=== PATIENT | female | born 1930 | race Caucasian/White ===

== ENCOUNTER 2016-07-31 17:06 | Inpatient (IN) | payer MEDICARE, OTHER ==
[~2016-07-31] VITALS: Ht 154.9 cm; Wt 70.4 kg
[~2016-07-31 17:06] MED LIST: AMLO-218 PO; ATOR40TA68 PO; BENZ200C43 PO; CALC-67 PO; ERTA1VIA2 IV; HYDR-3498 PO; HYDR-3672 PO; METH500T PO; METO-448 PO; NAPR-683 PO; OXYB5TAB22 PO; PARO10TA76 PO; SITA25TA3 PO
[2016-07-31 17:38] LABS: ADD SCAN DIFF NO
[2016-07-31 17:39] LABS: BASOPHILS % 0.2 % (0.0-2.0); EOSINOPHILS # 0.1 10^3/ul (0.0-0.5); EOSINOPHILS % 1.2 % (0.0-7.0); HEMATOCRIT 30.2 % (37.0-47.0); HEMOGLOBIN 9.3 g/dl (12.0-16.0); LYMPHOCYTES # 0.9 10^3/ul (0.8-2.9); LYMPHOCYTES % 9.8 % (15.0-51.0); MEAN CORPUSCULAR HEMOGLOBIN 29.6 pg (29.0-33.0); MEAN CORPUSCULAR HGB CONC 30.8 g/dl (32.0-37.0); MEAN CORPUSCULAR VOLUME 96.2 fl (82.0-101.0); MEAN PLATELET VOLUME 9.8 fl (7.4-10.4); MONOCYTE # 0.8 10^3/ul (0.3-0.9); MONOCYTES % 8.5 % (0.0-11.0); NEUTROPHIL # 7.6 10^3/ul (1.6-7.5); NEUTROPHILS % 79.6 % (39.0-77.0); PLATELET COUNT 226 10^3/UL (140-415); RED BLOOD COUNT 3.14 10^6/ul (4.20-5.40); RED CELL DISTRIBUTION WIDTH 14.5 % (11.5-14.5); WHITE BLOOD COUNT 9.6 10^3/ul (4.8-10.8)
[2016-07-31 17:50] LABS: POTASSIUM 4.2 mmol/L (3.5-5.1)
[2016-07-31 17:51] LABS: PROTIME 13.2 Sec (12.2-14.2)
[2016-07-31 17:53] LABS: CREATININE 7.3 mg/dl (0.44-1.00)
[2016-07-31 17:54] LABS: CALCIUM 8.2 mg/dl (8.4-10.2)
[2016-07-31 18:02] LABS: CK-MB 2.5 ng/ml (0.0-2.4)
[2016-07-31 18:05] LABS: TROPONIN-I 0.027 ng/ml (0.00-0.12)
[2016-07-31] MEDS ORDERED: AMLO5TAB4 PO (18:12)
[2016-07-31] MEDS ORDERED: FURO40TA4 PO (18:13)
[2016-07-31] MEDS ORDERED: ERGO500037 PO (18:16)
[2016-07-31] MEDS ORDERED: CALC0.255 PO (18:17)
[2016-07-31 18:52] LABS: TROPONIN-I 0.029 ng/ml (0.00-0.12)
--- NOTE | 2016-07-31 19:11 | RADRPT ---
PROCEDURE: XR Chest. CLINICAL INDICATION: Shortness of breath. TECHNIQUE: Portable AP upright view of the chest was obtained. COMPARISON: 09/20/2015 FINDINGS: The cardiomediastinal silhouette is mildly enlarged. Mild diffuse pulmonary vascular congestion is present with left greater than right lower lobe subsegmental atelectasis. Small bilateral pleural e ffusions are present greater on the left. Demineralization and thoracic spondylosis is again seen a s are degenerative changes of the left greater than right shoulder. Calcification of the aorta is pr esent. RPTAT:HJJR IMPRESSION: Mild cardiac silhouette enlargement with pulmonary vascular congestion and small pleural effusions a re concerning for congestive heart failure pattern with left greater than right lower lobe subsegmen cory atelectasis. Physician Nawaf Date Time Electronically viewed and signed by Physician Nawaf on 07/31/2016 19:11 /
[2016-07-31] MEDS ORDERED: ACETAMINOPHEN 325 MG TAB PO PRN (20:00)
[2016-07-31] MEDS ORDERED: ONDANSETRON 4 MG INJ IV PRN (20:00)
[2016-07-31 21:17] VITALS: TEMP 98
--- NOTE | 2016-07-31 21:24 | ERA ---
ER Documentation Chief Complaint Date/Time DATE: 07/31/16 TIME: 21:20 Chief Complaint sob x 1 week, speaking 1/2 sentences HPI This 85-year-old female presents to the emergency room for evaluation of shortness of breath for 1 week. According to family members this patient is scheduled to start dialysis within 1 or 2 weeks and was complaining of shortness of breath today. This patient was brought to the emergency room for further evaluation. The patient's shortness of breath is worse when laying flat. She denies any chest pain or palpitations associated with this. ROS All systems reviewed and are negative except as per history of present illness. Medications Home Meds Reported Medications Calcitriol* (Rocaltrol*) 0.25 Mcg Capsule, 0.25 MCG PO THREE TIMES A WEEK, CAP 07/31/16 Ergocalciferol (Vitamin D2) (VITAMIN D2) 50,000 Unit Capsule, 72950 UNIT PO EVERY 7 DAYS, CAP 07/31/16 Furosemide* (Furosemide*) 40 Mg Tablet, 40 MG PO DAILY, TAB 07/31/16 Amlodipine Besylate* (Norvasc*) 5 Mg Tablet, 5 MG PO DAILY, TAB 07/31/16 Metoprolol Tartrate* (Lopressor*) 25 Mg Tab, 25 MG PO BID, TAB 08/31/14 Hydralazine Hcl* (Hydralazine Hcl*) 50 Mg Tablet, 50 MG PO Q8, TAB 06/23/14 Sitagliptin* (Januvia*) 25 Mg Tablet, 25 MG PO DAILY, TAB 06/23/14 Paroxetine Hcl* (Paroxetine*) 10 Mg Tablet, 10 MG PO DAILY, TAB 06/23/14 Calcium Carbonate/Vitamin D3* (Os-Abhijeet 500+D*) 1 Tab Tablet, 1 TAB PO BID, TAB 06/23/14 Atorvastatin* (Atorvastatin*) 40 Mg Tablet, 40 MG PO HS, TAB 12/22/13 Discontinued Reported Medications Benzonatate* (Benzonatate*) 200 Mg Capsule, 200 MG PO TID Y for COUGH, CAP 06/23/14 Discontinued Scripts Methocarbamol* (Robaxin*) 500 Mg Tab, 500 MG PO Q8, #14 TAB Prov:BUNNY EASON DO 09/20/15 Naproxen* (Naproxen*) 250 Mg Tablet, 250 MG PO BID Y for PAIN, #10 TAB Prov:BUNNY EASON DO 09/20/15 Hydrocodone Bit-Acetaminophen* ([place]*) 5-325 Mg Tab, 1 TAB PO Q6 Y for PAIN, # 20 TAB Prov:BUNNY EASON DO 09/20/15 Ertapenem Sodium (Invanz) 1 G/Vial Vial.port, 1 G IV DAILY, #6 Prov:CARSON MADISON MD 09/06/14 Amlodipine Besylate* (Norvasc*) 10 Mg Tab, 10 MG PO DAILY, #30 BOTTLE Prov:CARSON MADISON MD 09/05/14 Oxybutynin Chloride* (Ditropan* XL) 5 Mg Tabsr, 5 MG PO DAILY, #30 TAB.SA Prov:CARSON MADISON MD 09/05/14 Allergies Allergies: Coded Allergies: No Known Allergies (Verified Allergy, Unknown, 07/31/16) PMhx/Soc History of Surgery: Yes (PANCREAS STENT PLACEMENT, fistula placement) Anesthesia Reaction: No Hx 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 Disorder: No Hx Respiratory Disorders: Yes (CHF) Hx Cardiac Disorders: Yes (htn, hyperlipids, cad) Hx Psychiatric Problems: Yes (hx of depression) Hx Miscellaneous Medical Probl: Yes (DM, HTN, COPD.KIDNEY INFECTION) Hx Alcohol Use: No Hx Substance Use: No Hx Tobacco Use: No Smoking Status: Never smoker Physical Exam Vitals Vital Signs Date Time Temp Pulse Resp B/P Pulse Ox O2 Delivery O2 Flow Rate FiO2 07/31/16 21:17 98.0 115 155/74 96 07/31/16 18:00 Nasal Cannula 3 07/31/16 17:09 98.1 81 20 158/70 87 Physical Exam INITIAL VITAL SIGNS: Reviewed by me GENERAL: The patient is well developed and appropriate for usual state of health in no apparent distress HEENT: Pupils equal, round, and reactive to light. EOMI. There is no scleral icterus. NECK: C-spine is soft and supple, there is no meningismus. There is no cervical lymphadenopathy. LUNGS: Coarse breath sounds bilaterally rales auscultated in the bilateral lower lobe HEART: Regular rate and rhythm, no murmurs, clicks, rubs or gallops. ABDOMEN: Soft, non-tender, non-distended. There are bowel sounds in all four quadrants. No rebound or guarding. EXTREMITIES: 3+ pitting edema in the bilateral lower extreme NEUROLOGICAL: The patient moves all four extremities with 5/5 strength. Cranial nerves II - XII are intact. Normal gait. Alert and oriented SKIN: There is no apparent rash or petechiae. HEME/LYMPHATIC: There is no evidence of excessive bruising or lymphedema. PSYCHIATRIC: The patient does not appear anxious or depressed. Result Diagram: 07/31/16 1725 07/31/16 1725 Results 24 hrs Laboratory Tests Test 07/31/16 17:25 White Blood Count 9.610^3/ul Red Blood Count 3.1410^6/ul Hemoglobin 9.3g/dl Hematocrit 30.2% Mean Corpuscular Volume 96.2fl Mean Corpuscular Hemoglobin 29.6pg Mean Corpuscular Hemoglobin Concent 30.8g/dl Red Cell Distribution Width 14.5% Platelet Count 81485^3/UL Mean Platelet Volume 9.8fl Neutrophils % 79.6% Lymphocytes % 9.8% Monocytes % 8.5% Eosinophils % 1.2% Basophils % 0.2% Nucleated Red Blood Cells % 0.0/100WBC Neutrophils # 7.610^3/ul Lymphocytes # 0.910^3/ul Monocytes # 0.810^3/ul Eosinophils # 0.110^3/ul Basophils # 0.010^3/ul Nucleated Red Blood Cells # 0.010^3/ul Prothrombin Time 13.2Sec Prothrombin Time Ratio 1.0 INR International Normalized Ratio 1.00 Activated Partial Thromboplast Time 29.0Sec Sodium Level 142mmol/L Potassium Level 4.2mmol/L Chloride Level 104mmol/L Carbon Dioxide Level 24mmol/L Anion Gap 18 Blood Urea Nitrogen 73mg/dl Creatinine 7.30mg/dl Glucose Level 168mg/dl Calcium Level 8.2mg/dl Creatine Kinase 105IU/L Creatine Kinase Index 2.4 Creatinine Kinase MB (Mass) 2.50ng/ml Troponin I 0.029ng/ml B-Type Natriuretic Peptide 7870PG/ML Current Medications Medications (Trade) Dose Ordered Sig/Shira Route PRN Reason Start Time Stop Time Status Last Admin Dose Admin Ondansetron HCl (Zofran Inj) 4 mg ER BRIDGE PRN IV NAUSEA AND/OR VOMITING 07/31/16 20:00 08/01/16 19:59 Acetaminophen (Tylenol Tab) 650 mg ER BRIDGE PRN PO MILD PAIN/FEVER 07/31/16 20:00 08/01/16 19:59 Procedures/MDM EKG: Rate/Rhythm: [Normal Sinus Rhythm] QRS, ST, T-waves: [No changes consistent w/ acute ischemia] Impression: [No evidence of ischemia or arrhythmia] Chest X-ray 1V Interpreted by me: Soft Tissue: Pulmonary vascular congestion, pleural effusion Bones: No acute abnormalities Mediastinum/Cardiac Silhouette/Lungs: [No acute abnormalities] There is 85-year-old female presents to the emergency room for evaluation of shortness of breath. When I evaluated her she was visibly fluid overloaded as she had 3+ pitting edema in the bilateral lower extremities. She did have coarse breath sounds bilaterally. Her oxygen on room air was 87%. The patient had an x-ray which did confirm my suspicion of pulmonary vascular congestion and cardiomegaly. This patient is supposed to be starting dialysis within a week or 2 according to the patient's family members. The patient does see animal behaviourist, Dr. matta at [facility]. I have paged Dr. Matta, and his colleague Dr. Mei return my phone call and stated that the patient can be seen by Dr. Leon. I have contacted Dr. Leon who stated that he will consult on this patient. This patient will be admitted under the care of Dr. Flores for acute hypoxic respiratory failure, and pulmonary edema. Critical Care: Excluding all billable procedures Time: 34 minutes Treatments/Evaluations: Emergent and rapid respiratory assessment and management with continuous monitoring. Advanced airway equipment at the ready, while the patient's respiratory symptoms were stabilized. Departure Diagnosis: Primary Impression: Acute respiratory failure with hypoxia Additional Impressions: Pulmonary vascular congestion Chronic renal insufficiency Normocytic anemia Condition: Stable KERITATIBAO EUBANKS Jul 31, 2016 21:24
[2016-07-31 21:40] VITALS: PULSE 85
[2016-07-31 21:52] VITALS: BP 148/66; RESP 19; Ht 154.9 cm; Wt 70.4 kg
[2016-08-01] VITALS (17 sets, daily range): BP systolic 112–160; BP diastolic 56–74; PULSE 66–89; RESP 18–20
[2016-08-01] MEDS: GUAIFENESIN/DM 5ML CUP PO PRN (00:35)
[2016-08-01] MEDS: ACCU-CHEK XX SCH (02:00)
[2016-08-01] MEDS: FUROSEMIDE 40 MG INJ IV SCH ×2 (05:54→18:36)
[2016-08-01 06:11] LABS: ADD SCAN DIFF NO
[2016-08-01 06:13] LABS: BASOPHILS % 0.2 % (0.0-2.0); EOSINOPHILS # 0.2 10^3/ul (0.0-0.5); EOSINOPHILS % 2.9 % (0.0-7.0); HEMATOCRIT 25.8 % (37.0-47.0); HEMOGLOBIN 7.8 g/dl (12.0-16.0); LYMPHOCYTES # 0.8 10^3/ul (0.8-2.9); LYMPHOCYTES % 13.4 % (15.0-51.0); MEAN CORPUSCULAR HEMOGLOBIN 29.4 pg (29.0-33.0); MEAN CORPUSCULAR HGB CONC 30.2 g/dl (32.0-37.0); MEAN CORPUSCULAR VOLUME 97.4 fl (82.0-101.0); MEAN PLATELET VOLUME 10.2 fl (7.4-10.4); MONOCYTE # 0.6 10^3/ul (0.3-0.9); MONOCYTES % 10.8 % (0.0-11.0); NEUTROPHIL # 4.2 10^3/ul (1.6-7.5); NEUTROPHILS % 72.4 % (39.0-77.0); PLATELET COUNT 180 10^3/UL (140-415); RED BLOOD COUNT 2.65 10^6/ul (4.20-5.40); RED CELL DISTRIBUTION WIDTH 14.6 % (11.5-14.5); WHITE BLOOD COUNT 5.8 10^3/ul (4.8-10.8)
[2016-08-01 06:31] LABS: ALBUMIN 3.1 g/dl (3.3-4.9); POTASSIUM 4.5 mmol/L (3.5-5.1)
[2016-08-01 06:33] LABS: CREATININE 7.05 mg/dl (0.44-1.00)
[2016-08-01 06:34] LABS: ALBUMIN/GLOBULIN RATIO 1.14; BILIRUBIN,INDIRECT 0.1 mg/dl (0-1.1); BILIRUBIN,TOTAL 0.1 mg/dl (0.2-1.3); CALCIUM 7.6 mg/dl (8.4-10.2); TOTAL PROTEIN 5.8 g/dl (6.1-8.1)
[2016-08-01 06:52] LABS: CK-MB 1.84 ng/ml (0.0-2.4)
[2016-08-01 06:55] LABS: TROPONIN-I 0.041 ng/ml (0.00-0.12)
[2016-08-01] MEDS: INSULIN ASPART [NOVOLOG] 3 ML PEN SC SCH ×4 (07:55→21:21)
[2016-08-01] MEDS: CALCITRIOL 0.25 MCG CAP PO SCH (09:27)
[2016-08-01] MEDS: PAROXETINE 10 MG TAB PO SCH (09:28)
[2016-08-01] MEDS: METOPROLOL 25 MG TAB PO SCH ×2 (09:28→21:11)
[2016-08-01] MEDS: CALCIUM/VITAMIN D (500/200) TAB PO SCH ×2 (09:28→21:11)
[2016-08-01] MEDS: AMLODIPINE 5 MG TAB PO SCH (09:29)
[2016-08-01] MEDS: HEPARIN 5,000 UNIT/0.5 ML VIAL SC SCH ×2 (09:59→21:00)
--- NOTE | 2016-08-01 11:40 | CONS ---
Date/Time of Note Date/Time of Note DATE: 08/01/16 TIME: 11:34 Assessment/Plan Assessment/Plan Additional Assessment/Plan Chest x-ray was reviewed from yesterday which is showing very minimal vascular congestion. Next Assessment recommendations; 1. Patient admitted for COPD exacerbation and acute bronchitis. 2. History of hypertension or diabetes. 3. Acute renal failure. Add Solu-Medrol 40 mg IV every 6 hours DuoNeb every 6 hours add Zithromax 250 mg orally daily. Patient likely would need to be dialyzed. Meanwhile continue current medications. Consultation Date/Type/Reason Admit Date/Time Jul 31, 2016 at 19:59 Date of Consultation: Aug 01, 2016 Type of Consultation: Pulmonary Reason for Consultation Pulmonary consultation is requested for evaluation of shortness of breath. Next History presenting; patient is a very pleasant 85-year-old lady who came into the emergency room yesterday with a few days history of increasing shortness of breath, cough and wheezing. According to her she was fine until the symptoms started 2 days ago but denies any high fever chills body aches myalgias to suggest any viral illness. The patient does have history of end- stage renal disease and according to her hemodialysis is being contemplated. The patient has not had any sessions yet so far. He denies any sputum production. But does complain of coughing. Denies any sinus symptoms. Any fever chills. Past medical history; 1. She was history of end-stage renal disease. 2. Hypertension. 3. Diabetes. 4. History of pancreatic stent. 5. Hyperlipidemia. 6. Most of any coronary artery disease. Medications; were reviewed. Allergies; are to iodine contrast. Social history; patient is an ex-smoker. Family history; she is she has 2 children. Various family members of diabetes hypertension. 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 Review of systems; denies any headache, any visual changes. Any sinus symptoms. Any seizures. Denies any chest pain. Complains of cough and wheezing. Denies any chest pain. Any angina. Any abdominal pain, nausea vomiting. Any melena, hematochezia. Complains of lower extremity edema. Complains of dyspnea on exertion. Complains of orthopnea. Has gained some weight recently. Denies any new skin changes. General exam; elderly lady, awake and alert currently in no distress. Social History Smoking Status: Former smoker Exam/Review of Systems Vital Signs Vitals Vital Signs Date Time Temp Pulse Resp B/P Pulse Ox O2 Delivery O2 Flow Rate FiO2 08/01/16 08:17 98.1 71 18 132/58 94 08/01/16 04:25 3.0 07/31/16 22:15 Nasal Cannula Intake and Output 07/31/16 07/31/16 08/01/16 15:00 23:00 07:00 Intake Total 300 ml Balance 300 ml Exam HEENT examination; supple neck, no JVD. No lymphadenopathy. Midline trachea. Patient is edentulous and wears dentures. Has bilateral intraocular lens implants. No thyromegaly. Chest examination a micro bilateral wheezing. S1-S2 audible, no murmurs. Regular rhythm. Abdomen examination; soft, nontender. No organomegaly. Bowel sounds audible. Extremity exam is; 1+ pitting edema lower extremities bilaterally. Pulses 1+ bilaterally. No clubbing. [employer] examination; cranial nerves are grossly intact. No motor deficit. Results Result Diagram: 08/01/16 0530 08/01/16 0530 Results 24 hrs Laboratory Tests Test 07/31/16 17:25 08/01/16 03:12 08/01/16 05:30 08/01/16 08:14 White Blood Count 9.6 # 5.8 # Red Blood Count 3.14 #L 2.65 L Hemoglobin 9.3 #L 7.8 L Hematocrit 30.2 L 25.8 L Mean Corpuscular Volume 96.2 97.4 Mean Corpuscular Hemoglobin 29.6 29.4 Mean Corpuscular Hemoglobin Concent 30.8 L 30.2 L Red Cell Distribution Width 14.5 14.6 H Platelet Count 226 180 # Mean Platelet Volume 9.8 10.2 Neutrophils % 79.6 H 72.4 Lymphocytes % 9.8 L 13.4 L Monocytes % 8.5 10.8 Eosinophils % 1.2 2.9 Basophils % 0.2 0.2 Nucleated Red Blood Cells % 0.0 0.0 Neutrophils # 7.6 H 4.2 Lymphocytes # 0.9 0.8 Monocytes # 0.8 0.6 Eosinophils # 0.1 0.2 Basophils # 0.0 0.0 Nucleated Red Blood Cells # 0.0 0.0 Prothrombin Time 13.2 Prothrombin Time Ratio 1.0 INR International Normalized Ratio 1.00 Activated Partial Thromboplast Time 29.0 Sodium Level 142 141 Potassium Level 4.2 4.5 Chloride Level 104 107 Carbon Dioxide Level 24 25 Anion Gap 18 H 14 Blood Urea Nitrogen 73 H 77 H Creatinine 7.30 H 7.05 H Glucose Level 168 104 # Calcium Level 8.2 L 7.6 L Creatine Kinase 105 70 Creatine Kinase Index 2.4 2.6 Creatinine Kinase MB (Mass) 2.50 H 1.84 Troponin I 0.029 0.041 B-Type Natriuretic Peptide 7870 H Bedside Glucose 115 103 Total Bilirubin 0.1 L Direct Bilirubin 0.00 Indirect Bilirubin 0.1 Aspartate Amino Transf (AST/SGOT) 20 Alanine Aminotransferase (ALT/SGPT) 23 Alkaline Phosphatase 96 Total Protein 5.8 L Albumin 3.1 L Globulin 2.70 Albumin/Globulin Ratio 1.14 Medications Medications Current Medications Amlodipine Besylate (Norvasc) 5 mg DAILY PO Last administered on 08/01/16 09: 29; Admin Dose 5 MG; Start 08/01/16 at 09:00 Atorvastatin Calcium (Lipitor) 40 mg HS PO ; Start 08/01/16 at 21:00 Calcitriol (Rocaltrol) 0.25 mcg DAILY PO Last administered on 08/01/16 09:27; Admin Dose 0.25 MCG; Start 08/01/16 at 09:00 Calcium/Vitamin D (Oyster Shell/ Vit-D (500/200)) 1 tab BID PO Last administered on 08/01/16 09:28; Admin Dose 1 TAB; Start 08/01/16 at 09:00 Hydralazine HCl (Apresoline) 50 mg Q8 PO Last administered on 08/01/16 05:54; Admin Dose 50 MG; Start 08/01/16 at 06:00 Metoprolol Tartrate (Lopressor) 25 mg BID PO Last administered on 08/01/16 09: 28; Admin Dose 25 MG; Start 08/01/16 at 09:00 Paroxetine HCl (Paxil) 10 mg DAILY PO Last administered on 08/01/16 09:28; Admin Dose 10 MG; Start 08/01/16 at 09:00 Acetaminophen (Tylenol Tab) 650 mg Q4H PRN PO PAIN AND OR ELEVATED TEMP; Start 08/01/16 at 00:30 Hydralazine HCl (Apresoline) 20 mg Q6H PRN IV ELEVATED BLOOD PRESSURE; Start at 00:30 Guaifenesin/ Dextromethorphan (Robitussin Dm Liquid Cup) 10 ml Q4H PRN PO COUGH Last administered on 08/01/16 00:35; Admin Dose 10 ML; Start 08/01/16 at 00:30 Heparin Sodium (Porcine) (Heparin (5000 Units/0.5 ml)) 5,000 unit BID SC Last administered on 08/01/16 09:59; Admin Dose 5,000 UNIT; Start 08/01/16 at 09:00 Diagnostic Test (Pha) (Accu-Chek) 1 ea 02 XX Last administered on 08/01/16 02: 00; Admin Dose 1 EA; Start 08/01/16 at 02:00 Epoetin Braden (Epogen (Esrd)) 10,000 units ONCE ONCE SC ; Start 08/01/16 at 12: 00; Stop 08/01/16 at 12:01 KOFI HUERTA Aug 01, 2016 11:40
[2016-08-01] MEDS ORDERED: EPOETIN 10000 UNITS/1 ML INJ (ESRD) SC ONE (12:00)
--- NOTE | 2016-08-01 13:30 | HP ---
Date/Time of Note Date/Time of Note DATE: 08/01/16 TIME: 10:48 Assessment/Plan VTE Prophylaxis VTE Prophylaxis Intervention: heparin, other Lines/Catheters IV Catheter Type (from [facility]): Saline Lock Urinary Cath still in place: No Assessment/Plan Assessment/Plan - Acute respiratory failure with hypoxia - pulmonary consult- Dr Smith notified - Pulmonary vascular congestion - cardiology consult- Dr Stuart notified - 2- D echo ordered - lipid panel ordered -Chronic renal insufficiency - Dr Leon notified - HD - Allergic to Iodinated Contrast Media -- DM- II - Glycemic control - 1800 Abhijeet diet - Former smoker - reinforce smoking cessation - COPD - Normocytic anemia - Hx PANCREAS STENT PLACEMENT, - sp fistula placement -Hx CHF -HTN - stable -Hyperlipidemia -Hx CAD - hx of depression Further recommendations based upon patient clinical course. Plan of care dw dr Flores /staff / patient . Total patient care time spent 35 minutes. 1400-Dw Dr Leon- her AVF is not ready yet as HD access, will need HD - JOSE ARMANDO Cath placement. Dr Manzo is notified. HPI/ROS Admit Date/Time Admit Date/Time Jul 31, 2016 at 19:59 Hx of Present Illness Chief Complaint sob x 1 week, speaking 1/2 sentences HPI This 85-year-old female presents to the emergency room for evaluation of shortness of breath for 1 week. According to family members this patient is scheduled to start dialysis within 1 or 2 weeks and was complaining of shortness of breath today. This patient was brought to the emergency room for further evaluation. The patient's shortness of breath is worse when laying flat. She denies any chest pain or palpitations associated with this. ROS All systems reviewed and are negative except as per history of present illness. Medications Home Meds Reported Medications Calcitriol* (Rocaltrol*) 0.25 Mcg Capsule, 0.25 MCG PO THREE TIMES A WEEK, CAP 07/31/16 Ergocalciferol (Vitamin D2) (VITAMIN D2) 50,000 Unit Capsule, 46232 UNIT PO EVERY 7 DAYS, CAP 07/31/16 Furosemide* (Furosemide*) 40 Mg Tablet, 40 MG PO DAILY, TAB 07/31/16 Amlodipine Besylate* (Norvasc*) 5 Mg Tablet, 5 MG PO DAILY, TAB 07/31/16 Metoprolol Tartrate* (Lopressor*) 25 Mg Tab, 25 MG PO BID, TAB 08/31/14 Hydralazine Hcl* (Hydralazine Hcl*) 50 Mg Tablet, 50 MG PO Q8, TAB 06/23/14 Sitagliptin* (Januvia*) 25 Mg Tablet, 25 MG PO DAILY, TAB 06/23/14 Paroxetine Hcl* (Paroxetine*) 10 Mg Tablet, 10 MG PO DAILY, TAB 06/23/14 Calcium Carbonate/Vitamin D3* (Os-Abhijeet 500+D*) 1 Tab Tablet, 1 TAB PO BID, TAB 06/23/14 Atorvastatin* (Atorvastatin*) 40 Mg Tablet, 40 MG PO HS, TAB 12/22/13 Discontinued Reported Medications Benzonatate* (Benzonatate*) 200 Mg Capsule, 200 MG PO TID Y for COUGH, CAP 06/23/14 Discontinued Scripts Methocarbamol* (Robaxin*) 500 Mg Tab, 500 MG PO Q8, #14 TAB Prov:JENAROBUNNY 09/20/15 Naproxen* (Naproxen*) 250 Mg Tablet, 250 MG PO BID Y for PAIN, #10 TAB Prov:JENAROBUNNY 09/20/15 Hydrocodone Bit-Acetaminophen* ([place]*) 5-325 Mg Tab, 1 TAB PO Q6 Y for PAIN, # 20 TAB Prov:BUNNY EASON 09/20/15 Ertapenem Sodium (Invanz) 1 G/Vial Vial.port, 1 G IV DAILY, #6 Prov:CARSON MADISON MD 09/06/14 Amlodipine Besylate* (Norvasc*) 10 Mg Tab, 10 MG PO DAILY, #30 BOTTLE Prov:CARSON MADISON MD 09/05/14 Oxybutynin Chloride* (Ditropan* XL) 5 Mg Tabsr, 5 MG PO DAILY, #30 TAB.SA Prov:CARSON MADISON MD 09/05/14 Allergies Allergies: Coded Allergies: No Known Allergies (Verified Allergy, Unknown, 07/31/16) ROS Eyes: no complaints ENT: no complaints Respiratory: shortness of breath Cardiovascular: no complaints Gastrointestinal: no complaints Genitourinary: no complaints Musculoskeletal: no complaints Skin: no complaints Neurologic: no complaints Endocrine: no complaints Lymphatic: no complaints Psychological: no complaints Immunologic: no complaints PMH/Family/Social Past Medical History PMhx/Soc History of Surgery: Yes (PANCREAS STENT PLACEMENT, fistula placement) Anesthesia Reaction: No Hx 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 Disorder: No Hx Respiratory Disorders: Yes (CHF) Hx Cardiac Disorders: Yes (htn, hyperlipids, cad) Hx Psychiatric Problems: Yes (hx of depression) Hx Miscellaneous Medical Probl: Yes (DM, HTN, COPD.KIDNEY INFECTION) Hx Alcohol Use: No Hx Substance Use: No Hx Tobacco Use: No Smoking Status: Never smoker Social History Smoking Status: Former smoker Exam/Review of Systems Vital Signs Vitals Vital Signs Date Time Temp Pulse Resp B/P Pulse Ox O2 Delivery O2 Flow Rate FiO2 08/01/16 08:17 98.1 71 18 132/58 94 08/01/16 04:25 3.0 07/31/16 22:15 Nasal Cannula Intake and Output 07/31/16 07/31/16 08/01/16 15:00 23:00 07:00 Intake Total 300 ml Balance 300 ml Exam Constitutional: alert, oriented, well developed Psych: no complaints Head: atraumatic Eyes: EOMI, nl sclera ENMT: nl external ears & nose Neck: non-tender Respiratory: diminished breath sounds, other ( Coarse breath sounds bilaterally rales auscultated in the bilateral lower lobe) Cardiovascular: nl pulses Gastrointestinal: non-tender, soft Musculoskeletal: nl extremities to inspection Extremities: edema 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: nl mental status, other Skin: nl turgor Lymph: nontender Labs Result Diagram: 08/01/1630 08/01/16 0530 Medications Medications Current Medications Amlodipine Besylate (Norvasc) 5 mg DAILY PO Last administered on 08/01/16 09: 29; Admin Dose 5 MG; Start 08/01/16 at 09:00 Atorvastatin Calcium (Lipitor) 40 mg HS PO ; Start 08/01/16 at 21:00 Calcitriol (Rocaltrol) 0.25 mcg DAILY PO Last administered on 08/01/16 09:27; Admin Dose 0.25 MCG; Start 08/01/16 at 09:00 Calcium/Vitamin D (Oyster Shell/ Vit-D (500/200)) 1 tab BID PO Last administered on 08/01/16 09:28; Admin Dose 1 TAB; Start 08/01/16 at 09:00 Hydralazine HCl (Apresoline) 50 mg Q8 PO Last administered on 08/01/16 05:54; Admin Dose 50 MG; Start 08/01/16 at 06:00 Metoprolol Tartrate (Lopressor) 25 mg BID PO Last administered on 08/01/16 09: 28; Admin Dose 25 MG; Start 08/01/16 at 09:00 Paroxetine HCl (Paxil) 10 mg DAILY PO Last administered on 08/01/16 09:28; Admin Dose 10 MG; Start 08/01/16 at 09:00 Acetaminophen (Tylenol Tab) 650 mg Q4H PRN PO PAIN AND OR ELEVATED TEMP; Start 08/01/16 at 00:30 Hydralazine HCl (Apresoline) 20 mg Q6H PRN IV ELEVATED BLOOD PRESSURE; Start at 00:30 Guaifenesin/ Dextromethorphan (Robitussin Dm Liquid Cup) 10 ml Q4H PRN PO COUGH Last administered on 08/01/16 00:35; Admin Dose 10 ML; Start 08/01/16 at 00:30 Heparin Sodium (Porcine) (Heparin (5000 Units/0.5 ml)) 5,000 unit BID SC Last administered on 08/01/16 09:59; Admin Dose 5,000 UNIT; Start 08/01/16 at 09:00 Diagnostic Test (Pha) (Accu-Chek) 1 ea 02 XX Last administered on 08/01/16 02: 00; Admin Dose 1 EA; Start 08/01/16 at 02:00 Epoetin Braden (Epogen (Esrd)) 10,000 units ONCE ONCE SC ; Start 08/01/16 at 12: 00; Stop 08/01/16 at 12:01 Procedures Procedures 1. EKG: Rate/Rhythm: [Normal Sinus Rhythm] QRS, ST, T-waves: [No changes consistent w/ acute ischemia] Impression: [No evidence of ischemia or arrhythmia] 2. Chest X-ray 1V Interpreted by me: Soft Tissue: Pulmonary vascular congestion, pleural effusion Bones: No acute abnormalities Mediastinum/Cardiac Silhouette/Lungs: [No acute abnormalities] LALA ORO Aug 01, 2016 10:58
[2016-08-01] MEDS: METHYLPREDNISOLONE 40 MG INJ IV SCH ×2 (14:16→18:36)
[2016-08-01] MEDS: AZITHROMYCIN 250 MG TAB PO SCH (14:18)
[2016-08-01] MEDS ORDERED: SOD CHLORIDE 0.9% 250 ML IV* ONE (14:43)
--- NOTE | 2016-08-01 15:09 | QN ---
Documentation Comment [id number] consult A/P ESRD HTN DM ANEMIA' FLUID OVERLOAD PLAN HD DAT OLSON MD Aug 01, 2016 15:09
--- NOTE | 2016-08-01 15:24 | RADRPT ---
Echocardiogram Report Patient Name: KANDY GARZA Gender: Female Date: 1930 Study Date: 01-Aug-2016 Phone Specialist: RENITA [facility] Location: 525 Ref. Physician: LALA ORO Quality: Adequate Procedures: Transthoracic echocardiogram with complete 2D, M-Mode, and doppler examination. Indications: Congestive Heart Failure. Shortness of breath. 2D/M Mode Doppler Measurement Value Normal Ranges Measurement Value Normal Ranges LVIDd 2D 4.8 3.5 - 5.6 cm AV Peak Ramirez 1.4 m/sec LVIDs 2D 3.1 2.1 - 4.1 cm AV Peak PG 8.0 mmHg FS 2D 34.5 % LVOT Peak Ramirez 1.2 m/sec LVPWd 2D 1.3 0.6 - 1.1 cm LVOT Peak PG 5.0 mmHg IVSd 2D 1.3 0.6 - 1.1 cm MV E Peak Ramirez 1.3 m/sec IVS/LVPW 2D 1.0 MV A Peak Ramirez 0.9 m/sec AoR Diam 2D 2.3 2.0 - 3.7 cm MV E/A 1.5 LA/Ao 2D 2 0 - 1 MV Decel Time 201 msec EDV 2D 109.0 cm3 MV E/A 1.5 ESV 2D 30.7 cm3 TR Peak Ramirez 2.7 m/sec LA Dimen 2D 4.3 2.3 - 4.0 cm TR Peak PG 28.0 mmHg Findings Left Ventricle: Normal left ventricular systolic function. Normal left ventricular cavity size. Mild concentric left ventricular hypertrophy. Ejection fraction is visually estimated at 65 %. Abnormal Diastolic Function. Right Ventricle: Normal right ventricular size. Normal right ventricular systolic function. Left Atrium: There is mild enlargement of left atrium. Right Atrium: The right atrium is normal in size. Mitral Valve: Mild mitral annular calcification. Trace mitral regurgitation. Aortic Valve: Probable trileaflet aortic valve, although not all leaflets are visualized. Trace aortic valve regurgitation. Tricuspid Valve: Estimated peak PA systolic pressure 43 mmHg. There is mild tricuspid regurgitation. Pulmonic Valve: There is trace pulmonic regurgitation. Pericardium: There is an anterior echo free space consistent with epicardial fat pad. Left pleural effusion seen. Aorta: Normal aortic root. IVC: Dilated inferior vena cava with poor inspiratory collapse consistent with elevated right atrial pressures. Conclusions Normal left ventricular systolic function. Normal left ventricular cavity size. Mild concentric left ventricular hypertrophy. Ejection fraction is visually estimated at 65 %. Abnormal Diastolic Function. Mild mitral annular calcification. Trace mitral regurgitation. Probable trileaflet aortic valve, although not all leaflets are visualized. Trace aortic valve regurgitation. Estimated peak PA systolic pressure 43 mmHg. There is mild tricuspid regurgitation. Electronically Signed By: Stephani Stuart 01-Aug-2016 15:23:48 -0700 Patient Name: KANDY GARZA Study Date: 01-Aug-2016 [id number]
--- NOTE | 2016-08-01 15:28 | CONS ---
Date/Time of Note Date/Time of Note DATE: 08/01/16 TIME: 15:24 Assessment/Plan Assessment/Plan Problems: (1) Contusion, hip Status: Acute (2) Facial contusion Status: Acute (3) UTI (lower urinary tract infection) Status: Acute (4) Knee pain Status: Acute (5) Compression fracture Status: Acute (6) Lumbar strain Status: Acute (7) Normocytic anemia Status: Acute (8) Chronic renal insufficiency Status: Acute (9) Pulmonary vascular congestion Status: Acute (10) Acute respiratory failure with hypoxia Status: Acute Additional Assessment/Plan ESRD New hd SOB/. pulm Edema due to CKD/ESRD Diastoic HF Vasculopathy Patient is getting HD right now Pulm edema improved SOB improved Plan for HD as per nephrology Dr Leno. I would consider BB Echo LVEF normal pt will ./fu out pt for further work up. will /.fu Thank you Dr Flores for consultation. Consultation Date/Type/Reason Admit Date/Time Jul 31, 2016 at 19:59 Date of Consultation: Aug 01, 2016 Type of Consultation: IC and Endovascular Card Reason for Consultation SOB, CP Hx of Present Illness Patient is 85 year old F with PMH of HTN, HLD, CKD now presentezd with SOB and ESRD was started on HD. She already has been planning for Stage IV CKD and had fistula done already. Pt does have some SOB. significant Leg edema. Likely realted to CKD and Diastolic HF. LVEF is nl. Eyes: no complaints ENT: no complaints Respiratory: shortness of breath Cardiovascular: no complaints Gastrointestinal: no complaints Genitourinary: no complaints Musculoskeletal: no complaints Skin: no complaints Neurologic: no complaints Lymphatic: no complaints Psychological: no complaints Immunologic: no complaints Social History Smoking Status: Former smoker Exam/Review of Systems Vital Signs Vitals Vital Signs Date Time Temp Pulse Resp B/P Pulse Ox O2 Delivery O2 Flow Rate FiO2 08/01/16 15:18 98.0 69 18 123/57 97 08/01/16 04:25 3.0 07/31/16 22:15 Nasal Cannula Intake and Output 07/31/16 07/31/16 08/01/16 15:00 23:00 07:00 Intake Total 300 ml Balance 300 ml Exam Constitutional: alert, oriented Psych: no complaints Head: normocephalic Eyes: nl conjunctiva ENMT: nl external ears & nose Neck: supple Respiratory: clear to auscultation Cardiovascular: regular rate and rhythm Gastrointestinal: soft Musculoskeletal: nl extremities to inspection Extremities: normal pulses Results Result Diagram: 08/01/16 0530 08/01/16 0530 Results 24 hrs Laboratory Tests Test 07/31/16 17:25 08/01/16 03:12 08/01/16 05:30 08/01/16 08:14 White Blood Count 9.6 # 5.8 # Red Blood Count 3.14 #L 2.65 L Hemoglobin 9.3 #L 7.8 L Hematocrit 30.2 L 25.8 L Mean Corpuscular Volume 96.2 97.4 Mean Corpuscular Hemoglobin 29.6 29.4 Mean Corpuscular Hemoglobin Concent 30.8 L 30.2 L Red Cell Distribution Width 14.5 14.6 H Platelet Count 226 180 # Mean Platelet Volume 9.8 10.2 Neutrophils % 79.6 H 72.4 Lymphocytes % 9.8 L 13.4 L Monocytes % 8.5 10.8 Eosinophils % 1.2 2.9 Basophils % 0.2 0.2 Nucleated Red Blood Cells % 0.0 0.0 Neutrophils # 7.6 H 4.2 Lymphocytes # 0.9 0.8 Monocytes # 0.8 0.6 Eosinophils # 0.1 0.2 Basophils # 0.0 0.0 Nucleated Red Blood Cells # 0.0 0.0 Prothrombin Time 13.2 Prothrombin Time Ratio 1.0 INR International Normalized Ratio 1.00 Activated Partial Thromboplast Time 29.0 Sodium Level 142 141 Potassium Level 4.2 4.5 Chloride Level 104 107 Carbon Dioxide Level 24 25 Anion Gap 18 H 14 Blood Urea Nitrogen 73 H 77 H Creatinine 7.30 H 7.05 H Glucose Level 168 104 # Calcium Level 8.2 L 7.6 L Creatine Kinase 105 70 Creatine Kinase Index 2.4 2.6 Creatinine Kinase MB (Mass) 2.50 H 1.84 Troponin I 0.029 0.041 B-Type Natriuretic Peptide 7870 H Bedside Glucose 115 103 Total Bilirubin 0.1 L Direct Bilirubin 0.00 Indirect Bilirubin 0.1 Aspartate Amino Transf (AST/SGOT) 20 Alanine Aminotransferase (ALT/SGPT) 23 Alkaline Phosphatase 96 Total Protein 5.8 L Albumin 3.1 L Globulin 2.70 Albumin/Globulin Ratio 1.14 Test 08/01/16 12:28 Bedside Glucose 103 Medications Medications Current Medications Amlodipine Besylate (Norvasc) 5 mg DAILY PO Last administered on 08/01/16 09: 29; Admin Dose 5 MG; Start 08/01/16 at 09:00 Atorvastatin Calcium (Lipitor) 40 mg HS PO ; Start 08/01/16 at 21:00 Calcitriol (Rocaltrol) 0.25 mcg DAILY PO Last administered on 08/01/16 09:27; Admin Dose 0.25 MCG; Start 08/01/16 at 09:00 Calcium/Vitamin D (Oyster Shell/ Vit-D (500/200)) 1 tab BID PO Last administered on 08/01/16 09:28; Admin Dose 1 TAB; Start 08/01/16 at 09:00 Hydralazine HCl (Apresoline) 50 mg Q8 PO Last administered on 08/01/16 05:54; Admin Dose 50 MG; Start 08/01/16 at 06:00 Metoprolol Tartrate (Lopressor) 25 mg BID PO Last administered on 08/01/16 09: 28; Admin Dose 25 MG; Start 08/01/16 at 09:00 Paroxetine HCl (Paxil) 10 mg DAILY PO Last administered on 08/01/16 09:28; Admin Dose 10 MG; Start 08/01/16 at 09:00 Acetaminophen (Tylenol Tab) 650 mg Q4H PRN PO PAIN AND OR ELEVATED TEMP; Start 08/01/16 at 00:30 Hydralazine HCl (Apresoline) 20 mg Q6H PRN IV ELEVATED BLOOD PRESSURE; Start at 00:30 Guaifenesin/ Dextromethorphan (Robitussin Dm Liquid Cup) 10 ml Q4H PRN PO COUGH Last administered on 08/01/16 00:35; Admin Dose 10 ML; Start 08/01/16 at 00:30 Heparin Sodium (Porcine) (Heparin (5000 Units/0.5 ml)) 5,000 unit BID SC Last administered on 08/01/16 09:59; Admin Dose 5,000 UNIT; Start 08/01/16 at 09:00 Diagnostic Test (Pha) (Accu-Chek) 1 ea 02 XX Last administered on 08/01/16 02: 00; Admin Dose 1 EA; Start 08/01/16 at 02:00 Azithromycin (Zithromax) 250 mg DAILY PO Last administered on 08/01/16 14:18; Admin Dose 250 MG; Start 08/01/16 at 12:00 Methylprednisolone Sodium Succinate (Solu-Medrol) 40 mg Q6 IV Last administered on 08/01/16 14:16; Admin Dose 40 MG; Start 08/01/16 at 12:00 Epoetin Braden (Epogen (Esrd)) 6,000 units MoWeFr@17 SC ; Start 08/02/16 at 17:00 Epoetin Braden (Epogen (Esrd)) 6,000 units ONCE ONCE SC ; Start 08/01/16 at 17:00 ; Stop 08/01/16 at 17:01 SIERRA GARCIA MD Aug 01, 2016 15:28
[2016-08-01] MEDS ORDERED: MANNITOL 25% 50 ML INJ IV* ONE (16:30)
[2016-08-01 16:33] LABS: HAAIG REFLEX REFLEX FILED
[2016-08-01] MEDS ORDERED: EPOETIN 3000 UNITS/1 ML INJ (ESRD) SC ONE (17:00)
[2016-08-01 17:35] LABS: HEPATITIS B CORE ANTIBODY NEGATIVE (NEGATIVE)
--- NOTE | 2016-08-01 17:54 | CONS ---
DATE OF ADMISSION: 07/31/2016 DATE OF CONSULTATION: TYPE OF CONSULTATION: Nephrology. Thank you, Dr. Jacinto Flores, for kindly asking me to see this patient. The of patient's primary research physiologist is Dr. Ruddy Matta, per patient. Patient had AV fistula in left upper extremity, waiting for fistula to mature and to start dialysis, presented with shortness of breath. Patient noted to have potassium 4.2, BUN 73, creatinine 7.30. The patient has 3+ edema of the leg. Chest x-ray done shows pulmonary edema. Cardiac silhouette enlargement with congestion and small pleural effusion. The patient is short of breath while lying flat, has orthopnea, PND and is going to be admitted and monitored for further management. PAST MEDICAL HISTORY: Positive for the patient has history of ESRD, the patient has hydronephrosis, history of , history of hypertension, UTI, history of pancreatitis. History of common bile duct obstruction, status post cholecystectomy, history of ERCP with sludge removal from the common bile duct and stent placement 09/04/2014. The patient has a history of COPD, anemia, AV fistula placement. Has history of diabetes mellitus. ALLERGY HISTORY: IV CONTRAST. SOCIAL HISTORY: Negative. FAMILY HISTORY: Negative. MEDICATION HISTORY: The patient is on: 1. Amlodipine. 2. Atorvastatin. 3. Rocaltrol. 4. Calcium carbonate. 5. Vitamin D2. 6. Lasix. 7. Hydralazine. 8. Metoprolol. 9. Paxil. 10. Januvia. REVIEW OF SYSTEMS HEENT: Unremarkable except short of breath. RESPIRATORY: Orthopnea and PND positive. CARDIOVASCULAR: No chest pain. ABDOMEN: Unremarkable. EXTREMITIES: Swelling. GENITOURINARY: Nocturia. No dysuria, no hematuria. CENTRAL NERVOUS SYSTEM: Unremarkable. PHYSICAL EXAMINATION: GENERAL: The patient is awake and alert. VITAL SIGNS: Pulse 73, blood pressure 145/68. HEAD: Atraumatic, normocephalic. Pupils are equal and reactive to light. No pallor or conjunctival icterus. NECK: Supple, no JVD. LUNGS: Shows basilar rales noted and rhonchi noted. CARDIOVASCULAR: S1, S2 is normal. Systolic murmur soft at the apex noted. ABDOMEN: Soft, obese, bowel sounds present, no palpable mass. EXTREMITIES: No cyanosis, clubbing. Total 3+ edema. CENTRAL NERVOUS SYSTEM: The patient is awake, alert, moving both upper and lower extremities. No deficit. IMPRESSION: 1. End-stage renal disease stage V. 2. Fluid overload. 3. Pulmonary edema. 4. Anemia of chronic kidney disease. 5. History of diabetes mellitus. 6. 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 7. AV fistula on the left upper extremity. PLAN: To obtain hepatitis panel. The patient already had a workup done for kidney disease as an outpatient for Dr. Matta, per patient. The patient will have phosphorus and calcium and CBC, CMP followed. The patient will benefit from renal replacement therapy and placement of dialysis catheter and Maurice catheter will be placed temporarily and the patient will be dialyzed. The patient agrees. The patient will also have outpatient arrangement made for patient to continue chronic hemodialysis in the outside dialysis center. Will let Dr. Ruddy Matta decide which dialysis center he wants this patient to go to for chronic dialysis. Will inform him or have corrections caseworker and nurse practitioner call dr matta office. Thank you, Dr. Jacinto Flores, for kindly asking me to see this patient in nephrology consultation. The patient will be followed along with you during her hospital stay. Dictated By: DAT OLSON MD BS/SYED Conf#: [id number] DID#: [id number] LUCIA
--- NOTE | 2016-08-01 19:18 | CONS ---
DATE OF ADMISSION: 07/31/2016 DATE OF CONSULTATION: 08/01/2016 VASCULAR SURGERY CONSULTATION Dear Doctors: Ms. You is an 85-year-old female known to our vascular surgery service secondary to a history of chronic kidney disease stage V, pending end-stage renal disease, who has been evaluated for us for some time now. The patient had a left upper extremity fistula creation early May secondary to h er impending renal failure. The patient had been managed by her outside physician, Dr. Ruddy Ross, who has been following her regarding her renal function. From a standpoint of vascular surgery, her left upper extremity fistula had mostly matured. There were some areas in her distal cephalic vein that had areas that still had some stenosis which will require further intervention in the near fut ure should there be a problem with her dialysis sessions. At the moment, we have cleared the patien t to go ahead and have her fistula used, although with smaller needles, 17 gauge, and not to be used with a 16-gauge needle. She is tolerating dialysis well at the bedside with numbers in the 250s. Further, she is being evaluated by our cardiology colleagues secondary to her fluid overload and her diastolic congestive heart failure. At the moment, the patient denies nausea, vomiting, fever or c hills. She denies left upper extremity claudication or rest pain-like symptoms. She denies lower e xtremity claudication or rest pain. She does have edema in the bilateral lower extremities, and she does have some shortness of breath and mild chest pain as a result to that. PAST MEDICAL HISTORY: COPD; congestive heart failure, diastolic; coronary artery disease; bilateral lower extremity atherosclerosis; hypertension; diabetes; chronic kidney disease stage V, impending end-stage renal disease; hyperlipidemia; coronary artery disease. PAST SURGICAL HISTORY: Left upper extremity AV fistula brachiocephalic creation, pancreatic stent. FAMILY HISTORY: Positive for coronary artery disease and hypertension and cholesterol. SOCIAL HISTORY: Denies current tobacco, alcohol or illicit drug use. Previous smoker. PHYSICAL EXAMINATION: GENERAL: Alert and oriented x3. No apparent distress. HEENT: Normocephalic, atraumatic. PERRLA, EOMI. Mucosa moist. NECK: Supple. No carotid bruit. PULMONARY: Bilateral crackles at the bases. Good airway entry. CARDIOVASCULAR: S1, S2 present. No murmurs identified. ABDOMEN: Soft, nontender, nondistended. Bowel sounds positive. Truncal obesity. EXTREMITIES: LEFT UPPER EXTREMITY: Palpable brachial pulse. Motor, sensory intact. Capillary refill 2 to 3 sec onds. Surgical scar well healed. Fistula with bruit and thrill present. She does have a large arm . LOWER EXTREMITIES: Palpable femoral pulses, nonpalpable pedal pulses. Motor, sensory intact. Capi llary refill 2 to 3 seconds. No ulcers. Edema 2+. ASSESSMENT AND PLAN: 1. Chronic kidney disease stage V, impending end-stage renal disease: It seems that the patient's fluid status has worsened and she requires dialysis in order to offload her volume overload. Her fi stula has matured mostly. There are areas that were still smaller in diameter in the distal cephali c area upon our recent vascular surveillance. As far as right now, will go ahead and have the fistu la attempted with a smaller-gauge needle, 17 gauge, and evaluate her dialysis session. Attention sh ould be paid to not applying too much pressure on the vein post her cannulation needles have been re moved. Will plan to follow her closely and hope that her fistula will be adequate for her dialysis sessions for now. If the patient requires further management and issues with her dialysis sessions, will plan for a PermCath in the coming days. 2. Bilateral lower extremity atherosclerosis: The patient has been evaluated by Vascular, will con tinue our vascular surveillance. No further intervention is needed at this time and will follow as an outpatient. 3. Optimize vascular status (blood pressure medications, diet, nutrition, exercise, sugar control, antiplatelets). Discussed findings, plan and management with the patient. She understands with a certified translat or. We have discussed the patient's findings with Dr. Leon, and Dr. Ruddy Ross, who is her outpatient n ephrologist, to follow the patient. Thank you for allowing us to partake in the care of your patient. Please call with any questions. Dictated By: ELIZA CAROLINA/SYED Conf#: [id number] DID#: [id number] CC: RUDDY ROSS MD;*EndCC*
[2016-08-01] MEDS: ATORVASTATIN 40 MG TAB PO SCH (21:11)
[2016-08-02] VITALS (18 sets, daily range): BP systolic 120–167; BP diastolic 57–83; PULSE 66–88; RESP 18–20
[2016-08-02] MEDS: ACCU-CHEK XX SCH (02:00)
[2016-08-02] MEDS: METHYLPREDNISOLONE 40 MG INJ IV SCH ×4 (02:25→17:35)
[2016-08-02] MEDS: FUROSEMIDE 40 MG INJ IV SCH ×2 (06:29→17:01)
[2016-08-02 07:27] LABS: ADD SCAN DIFF NO
[2016-08-02 07:33] LABS: ABNORMAL IP MESSAGE 1; HEMATOCRIT 33.5 % (37.0-47.0); HEMOGLOBIN 10.4 g/dl (12.0-16.0); LYMPHOCYTES # 0.5 10^3/ul (0.8-2.9); LYMPHOCYTES % 8.9 % (15.0-51.0); MEAN CORPUSCULAR HEMOGLOBIN 29.9 pg (29.0-33.0); MEAN CORPUSCULAR VOLUME 96.3 fl (82.0-101.0); MEAN PLATELET VOLUME 10.6 fl (7.4-10.4); MONOCYTES % 0.8 % (0.0-11.0); NEUTROPHIL # 4.7 10^3/ul (1.6-7.5); NEUTROPHILS % 89.4 % (39.0-77.0); PLATELET COUNT 180 10^3/UL (140-415); RED BLOOD COUNT 3.48 10^6/ul (4.20-5.40); RED CELL DISTRIBUTION WIDTH 14.6 % (11.5-14.5); WHITE BLOOD COUNT 5.3 10^3/ul (4.8-10.8)
[2016-08-02 08:00] LABS: ALBUMIN 3.5 g/dl (3.3-4.9)
[2016-08-02 08:01] LABS: POTASSIUM 4.4 mmol/L (3.5-5.1)
[2016-08-02 08:03] LABS: BILIRUBIN,INDIRECT 0.2 mg/dl (0-1.1); BILIRUBIN,TOTAL 0.2 mg/dl (0.2-1.3); CHOL/HDL RATIO 1.6 RATIO; CREATININE 5.65 mg/dl (0.44-1.00); MAGNESIUM 2.1 mg/dl (1.7-2.5); PHOSPHORUS 7.2 mg/dl (2.5-4.9)
[2016-08-02 08:04] LABS: CALCIUM 8.2 mg/dl (8.4-10.2)
[2016-08-02] MEDS: CALCITRIOL 0.25 MCG CAP PO SCH (08:22)
[2016-08-02] MEDS: CALCIUM/VITAMIN D (500/200) TAB PO SCH ×2 (08:22→20:47)
[2016-08-02] MEDS: AZITHROMYCIN 250 MG TAB PO SCH (08:22)
[2016-08-02] MEDS: PAROXETINE 10 MG TAB PO SCH (08:22)
[2016-08-02] MEDS: HEPARIN 5,000 UNIT/0.5 ML VIAL SC SCH ×2 (08:23→20:53)
[2016-08-02] MEDS: INSULIN ASPART [NOVOLOG] 3 ML PEN SC SCH ×4 (08:24→21:06)
[2016-08-02] MEDS: AMLODIPINE 5 MG TAB PO SCH (08:29)
[2016-08-02] MEDS: METOPROLOL 25 MG TAB PO SCH ×2 (08:30→20:47)
[2016-08-02] MEDS ORDERED: GLUCAGON 1 MG INJ IM PRN (12:30)
[2016-08-02] MEDS ORDERED: DEXTROSE 50% 50 ML SYRINGE IV PRN (12:30)
[2016-08-02] MEDS ORDERED: GLUCOSE GEL 15 GRAM TUBE BUCCAL PRN (12:30)
[2016-08-02] MEDS ORDERED: GLUCOSE GEL 15 GRAM TUBE PO PRN ×2 (12:30)
--- NOTE | 2016-08-02 16:59 | PN ---
Date/Time of Note Date/Time of Note DATE: 08/02/16 TIME: 16:48 Assessment/Plan VTE Prophylaxis VTE Prophylaxis Intervention: SCD's Lines/Catheters IV Catheter Type [facility]from [facility] Saline Lock Urinary Cath still in place: No Assessment/Plan Chief Complaint/Hosp Course Assessment and plan: - Acute bronchitis, continue Zithromax. - COPD exacerbation, continue breathing treatment. Dr. Natarajan is following in pulmonology consultation - End-stage renal disease stage V. Dr. Leon is following in nephrology consultation. - Pulmonary edema. Continue diuresis. - Anemia of chronic kidney disease. Continue Epogen. - Diabetes mellitus type 2, continue NovoLog per moderate algorithm sliding scale. - Hypertension, continue Norvasc. -Left upper extremity AV fistula Further recommendations based on clinical course. Plan of care discussed with Dr. Flores Problems: Subjective 24 Hr Interval Summary Free Text/Dictation Patient is awake alert, denies shortness of breath, complains of productive cough, denies fever nausea vomiting. Exam/Review of Systems Vital Signs Vitals Vital Signs Date Time Temp Pulse Resp B/P Pulse Ox O2 Delivery O2 Flow Rate FiO2 08/02/16 16:36 80 08/02/16 16:21 98.1 19 149/65 95 08/02/16 15:47 2.0 08/02/16 08:00 Nasal Cannula Intake and Output 08/01/16 08/01/16 08/02/16 15:00 23:00 07:00 Intake Total 1350 ml 800 ml Output Total 3100 ml Balance -1750 ml 800 ml Exam Constitutional: alert, oriented Psych: no complaints Head: atraumatic, normocephalic Eyes: nl conjunctiva ENMT: nl external ears & nose, nl lips & teeth Neck: non-tender, supple Respiratory: clear to auscultation, crackles/rales Cardiovascular: nl pulses, regular rate and rhythm Gastrointestinal: non-tender, soft Musculoskeletal: nl extremities to inspection Extremities: normal pulses 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: LAMP SHADE MAKER II-XII intact Additional Comments Left upper extremities with AV fistula with palpable thrill and audible bruit Results Result Diagram: 08/02/1625 08/02/16 0625 Results 24 hrs Laboratory Tests Test 08/01/16 17:54 08/01/16 21:02 08/02/16 02:41 08/02/16 06:25 Bedside Glucose 130 281 H 196 White Blood Count 5.3 Red Blood Count 3.48 #L Hemoglobin 10.4 #L Hematocrit 33.5 #L Mean Corpuscular Volume 96.3 Mean Corpuscular Hemoglobin 29.9 Mean Corpuscular Hemoglobin Concent 31.0 L Red Cell Distribution Width 14.6 H Platelet Count 180 Mean Platelet Volume 10.6 H Neutrophils % 89.4 H Lymphocytes % 8.9 L Monocytes % 0.8 Eosinophils % 0.0 Basophils % 0.0 Nucleated Red Blood Cells % 0.0 Neutrophils # 4.7 Lymphocytes # 0.5 L Monocytes # 0.0 L Eosinophils # 0.0 Basophils # 0.0 Nucleated Red Blood Cells # 0.0 Sodium Level 140 Potassium Level 4.4 Chloride Level 104 Carbon Dioxide Level 27 Anion Gap 13 Blood Urea Nitrogen 53 H Creatinine 5.65 H Glucose Level 193 Calcium Level 8.2 L Phosphorus Level 7.2 H Magnesium Level 2.1 Total Bilirubin 0.2 Direct Bilirubin 0.00 Indirect Bilirubin 0.2 Aspartate Amino Transf (AST/SGOT) 21 Alanine Aminotransferase (ALT/SGPT) 22 Alkaline Phosphatase 108 Total Protein 7.0 # Albumin 3.5 Globulin 3.50 H Albumin/Globulin Ratio 1.00 Triglycerides Level 84 Cholesterol Level 153 LDL Cholesterol, Calculated 42 HDL Cholesterol 94 H Cholesterol/HDL Ratio 1.6 Test 08/02/16 07:38 08/02/16 11:32 Bedside Glucose 187 285 H Medications Medications Current Medications Amlodipine Besylate (Norvasc) 5 mg DAILY PO Last administered on 08/02/16 08: 29; Admin Dose 5 MG; Start 08/01/16 at 09:00 Atorvastatin Calcium (Lipitor) 40 mg HS PO Last administered on 08/01/16 21:11 ; Admin Dose 40 MG; Start 08/01/16 at 21:00 Calcitriol (Rocaltrol) 0.25 mcg DAILY PO Last administered on 08/02/16 08:22; Admin Dose 0.25 MCG; Start 08/01/16 at 09:00 Calcium/Vitamin D (Oyster Shell/ Vit-D (500/200)) 1 tab BID PO Last administered on 08/02/16 08:22; Admin Dose 1 TAB; Start 08/01/16 at 09:00 Hydralazine HCl (Apresoline) 50 mg Q8 PO Last administered on 08/02/16 06:29; Admin Dose 50 MG; Start 08/01/16 at 06:00 Metoprolol Tartrate (Lopressor) 25 mg BID PO Last administered on 08/02/16 08: 30; Admin Dose 25 MG; Start 08/01/16 at 09:00 Paroxetine HCl (Paxil) 10 mg DAILY PO Last administered on 08/02/16 08:22; Admin Dose 10 MG; Start 08/01/16 at 09:00 Acetaminophen (Tylenol Tab) 650 mg Q4H PRN PO PAIN AND OR ELEVATED TEMP; Start 08/01/16 at 00:30 Hydralazine HCl (Apresoline) 20 mg Q6H PRN IV ELEVATED BLOOD PRESSURE; Start at 00:30 Guaifenesin/ Dextromethorphan (Robitussin Dm Liquid Cup) 10 ml Q4H PRN PO COUGH Last administered on 08/01/16 00:35; Admin Dose 10 ML; Start 08/01/16 at 00:30 Heparin Sodium (Porcine) (Heparin (5000 Units/0.5 ml)) 5,000 unit BID SC Last administered on 08/02/16 08:23; Admin Dose 5,000 UNIT; Start 08/01/16 at 09:00 Diagnostic Test (Pha) (Accu-Chek) 1 ea 02 XX Last administered on 08/02/16 02: 00; Admin Dose 1 EA; Start 08/01/16 at 02:00 Azithromycin (Zithromax) 250 mg DAILY PO Last administered on 08/02/16 08:22; Admin Dose 250 MG; Start 08/01/16 at 12:00 Methylprednisolone Sodium Succinate (Solu-Medrol) 40 mg Q6 IV Last administered on 08/02/16 12:37; Admin Dose 40 MG; Start 08/01/16 at 12:00 Epoetin Braden (Epogen (Esrd)) 6,000 units MoWeFr@17 SC ; Start 08/02/16 at 17:00 Miscellaneous Information 1 ea NOTE XX ; Start 08/02/16 at 12:30 Glucose (Glutose) 15 gm Q15M PRN PO DECREASED GLUCOSE; Start 08/02/16 at 12:30 Glucose (Glutose) 22.5 gm Q15M PRN PO DECREASED GLUCOSE; Start 08/02/16 at 12: 30 Dextrose (D50w Syringe) 25 ml Q15M PRN IV DECREASED GLUCOSE; Start 08/02/16 at 12:30 Dextrose (D50w Syringe) 50 ml Q15M PRN IV DECREASED GLUCOSE; Start 08/02/16 at 12:30 Glucagon (Glucagen) 1 mg Q15M PRN IM DECREASED GLUCOSE; Start 08/02/16 at 12:30 Glucose (Glutose) 15 gm Q15M PRN BUCCAL DECREASED GLUCOSE; Start 08/02/16 at 12 :30 BRYANT PERALTA Aug 02, 2016 16:58
--- NOTE | 2016-08-02 18:05 | CONS ---
Date/Time of Note Date/Time of Note DATE: 08/02/16 TIME: 18:02 Assessment/Plan Assessment/Plan Chief Complaint/Hosp Course IMPRESSION: 1. End-stage renal disease stage V. 2. Fluid overload. 3. Pulmonary edema. 4. Anemia of chronic kidney disease. 5. History of diabetes mellitus. 6. 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 7. AV fistula on the left upper extremity. plan continue hd d/w dr nguyen to make arrangement for out hd Problems: Consultation Date/Type/Reason Admit Date/Time Jul 31, 2016 at 19:59 Initial Consult Date 08/01/16 Type of Consultation: renal 24 HR Interval Summary Subjective hx not possible: other (weakness+) Exam/Review of Systems Vital Signs Vitals Vital Signs Date Time Temp Pulse Resp B/P Pulse Ox O2 Delivery O2 Flow Rate FiO2 08/02/16 16:36 80 08/02/16 16:21 98.1 19 149/65 95 08/02/16 15:47 2.0 08/02/16 08:00 Nasal Cannula Intake and Output 08/01/16 08/01/16 08/02/16 15:00 23:00 07:00 Intake Total 1350 ml 800 ml Output Total 3100 ml Balance -1750 ml 800 ml Exam Neck: supple Respiratory: clear to auscultation Cardiovascular: regular rate and rhythm Gastrointestinal: soft Extremities: normal pulses Results Result Diagram: 08/02/1625 08/02/16 0625 Results 24 hrs Laboratory Tests Test 08/01/16 21:02 08/02/16 02:41 08/02/16 06:25 08/02/16 07:38 Bedside Glucose 281 H 196 187 White Blood Count 5.3 Red Blood Count 3.48 #L Hemoglobin 10.4 #L Hematocrit 33.5 #L Mean Corpuscular Volume 96.3 Mean Corpuscular Hemoglobin 29.9 Mean Corpuscular Hemoglobin Concent 31.0 L Red Cell Distribution Width 14.6 H Platelet Count 180 Mean Platelet Volume 10.6 H Neutrophils % 89.4 H Lymphocytes % 8.9 L Monocytes % 0.8 Eosinophils % 0.0 Basophils % 0.0 Nucleated Red Blood Cells % 0.0 Neutrophils # 4.7 Lymphocytes # 0.5 L Monocytes # 0.0 L Eosinophils # 0.0 Basophils # 0.0 Nucleated Red Blood Cells # 0.0 Sodium Level 140 Potassium Level 4.4 Chloride Level 104 Carbon Dioxide Level 27 Anion Gap 13 Blood Urea Nitrogen 53 H Creatinine 5.65 H Glucose Level 193 Calcium Level 8.2 L Phosphorus Level 7.2 H Magnesium Level 2.1 Total Bilirubin 0.2 Direct Bilirubin 0.00 Indirect Bilirubin 0.2 Aspartate Amino Transf (AST/SGOT) 21 Alanine Aminotransferase (ALT/SGPT) 22 Alkaline Phosphatase 108 Total Protein 7.0 # Albumin 3.5 Globulin 3.50 H Albumin/Globulin Ratio 1.00 Triglycerides Level 84 Cholesterol Level 153 LDL Cholesterol, Calculated 42 HDL Cholesterol 94 H Cholesterol/HDL Ratio 1.6 Test 08/02/16 11:32 08/02/16 16:54 Bedside Glucose 285 H 221 H Medications Medications Current Medications Amlodipine Besylate (Norvasc) 5 mg DAILY PO Last administered on 08/02/16 08: 29; Admin Dose 5 MG; Start 08/01/16 at 09:00 Atorvastatin Calcium (Lipitor) 40 mg HS PO Last administered on 08/01/16 21:11 ; Admin Dose 40 MG; Start 08/01/16 at 21:00 Calcitriol (Rocaltrol) 0.25 mcg DAILY PO Last administered on 08/02/16 08:22; Admin Dose 0.25 MCG; Start 08/01/16 at 09:00 Calcium/Vitamin D (Oyster Shell/ Vit-D (500/200)) 1 tab BID PO Last administered on 08/02/16 08:22; Admin Dose 1 TAB; Start 08/01/16 at 09:00 Hydralazine HCl (Apresoline) 50 mg Q8 PO Last administered on 08/02/16 06:29; Admin Dose 50 MG; Start 08/01/16 at 06:00 Metoprolol Tartrate (Lopressor) 25 mg BID PO Last administered on 08/02/16 08: 30; Admin Dose 25 MG; Start 08/01/16 at 09:00 Paroxetine HCl (Paxil) 10 mg DAILY PO Last administered on 08/02/16 08:22; Admin Dose 10 MG; Start 08/01/16 at 09:00 Acetaminophen (Tylenol Tab) 650 mg Q4H PRN PO PAIN AND OR ELEVATED TEMP; Start 08/01/16 at 00:30 Hydralazine HCl (Apresoline) 20 mg Q6H PRN IV ELEVATED BLOOD PRESSURE; Start at 00:30 Guaifenesin/ Dextromethorphan (Robitussin Dm Liquid Cup) 10 ml Q4H PRN PO COUGH Last administered on 08/01/16 00:35; Admin Dose 10 ML; Start 08/01/16 at 00:30 Heparin Sodium (Porcine) (Heparin (5000 Units/0.5 ml)) 5,000 unit BID SC Last administered on 08/02/16 08:23; Admin Dose 5,000 UNIT; Start 08/01/16 at 09:00 Diagnostic Test (Pha) (Accu-Chek) 1 ea 02 XX Last administered on 08/02/16 02: 00; Admin Dose 1 EA; Start 08/01/16 at 02:00 Azithromycin (Zithromax) 250 mg DAILY PO Last administered on 08/02/16 08:22; Admin Dose 250 MG; Start 08/01/16 at 12:00 Methylprednisolone Sodium Succinate (Solu-Medrol) 40 mg Q6 IV Last administered on 08/02/16 17:35; Admin Dose 40 MG; Start 08/01/16 at 12:00 Epoetin Braden (Epogen (Esrd)) 6,000 units MoWeFr@17 SC ; Start 08/02/16 at 17:00 Miscellaneous Information 1 ea NOTE XX ; Start 08/02/16 at 12:30 Glucose (Glutose) 15 gm Q15M PRN PO DECREASED GLUCOSE; Start 08/02/16 at 12:30 Glucose (Glutose) 22.5 gm Q15M PRN PO DECREASED GLUCOSE; Start 08/02/16 at 12: 30 Dextrose (D50w Syringe) 25 ml Q15M PRN IV DECREASED GLUCOSE; Start 08/02/16 at 12:30 Dextrose (D50w Syringe) 50 ml Q15M PRN IV DECREASED GLUCOSE; Start 08/02/16 at 12:30 Glucagon (Glucagen) 1 mg Q15M PRN IM DECREASED GLUCOSE; Start 08/02/16 at 12:30 Glucose (Glutose) 15 gm Q15M PRN BUCCAL DECREASED GLUCOSE; Start 08/02/16 at 12 :30 DAT OLSON MD Aug 02, 2016 18:05
[2016-08-02] MEDS: ATORVASTATIN 40 MG TAB PO SCH (20:46)
[2016-08-02] MEDS: EPOETIN 3000 UNITS/1 ML INJ (ESRD) SC SCH (21:00)
[2016-08-03] VITALS (11 sets, daily range): BP systolic 131–167; BP diastolic 63–80; PULSE 70–88; RESP 18–21
[2016-08-03] MEDS: METHYLPREDNISOLONE 40 MG INJ IV SCH ×5 (00:58→23:45)
[2016-08-03] MEDS: ALBUTEROL/IPRATROPIUM (NEB) 3 ML AMP HHN PRN ×2 (01:03→08:10)
[2016-08-03] MEDS: ACCU-CHEK XX SCH (02:04)
[2016-08-03 05:13] LABS: ADD SCAN DIFF NO
[2016-08-03 05:24] LABS: ABNORMAL IP MESSAGE 1; BASOPHILS % 0.1 % (0.0-2.0); HEMOGLOBIN 10.5 g/dl (12.0-16.0); LYMPHOCYTES # 0.5 10^3/ul (0.8-2.9); LYMPHOCYTES % 5.4 % (15.0-51.0); MEAN CORPUSCULAR HEMOGLOBIN 29.9 pg (29.0-33.0); MEAN CORPUSCULAR HGB CONC 30.9 g/dl (32.0-37.0); MEAN CORPUSCULAR VOLUME 96.9 fl (82.0-101.0); MEAN PLATELET VOLUME 10.3 fl (7.4-10.4); MONOCYTE # 0.3 10^3/ul (0.3-0.9); MONOCYTES % 3.1 % (0.0-11.0); NEUTROPHIL # 7.8 10^3/ul (1.6-7.5); NEUTROPHILS % 89.9 % (39.0-77.0); PLATELET COUNT 181 10^3/UL (140-415); RED BLOOD COUNT 3.51 10^6/ul (4.20-5.40); RED CELL DISTRIBUTION WIDTH 14.4 % (11.5-14.5); WHITE BLOOD COUNT 8.7 10^3/ul (4.8-10.8)
[2016-08-03] MEDS: FUROSEMIDE 40 MG INJ IV SCH ×2 (06:21→18:00)
[2016-08-03 07:17] LABS: POTASSIUM 4.4 mmol/L (3.5-5.1)
[2016-08-03 07:20] LABS: CREATININE 6.61 mg/dl (0.44-1.00)
[2016-08-03 07:21] LABS: CALCIUM 8.8 mg/dl (8.4-10.2)
[2016-08-03] MEDS: CALCIUM/VITAMIN D (500/200) TAB PO SCH ×2 (09:07→20:58)
[2016-08-03] MEDS: CALCITRIOL 0.25 MCG CAP PO SCH (09:07)
[2016-08-03] MEDS: METOPROLOL 25 MG TAB PO SCH ×2 (09:07→20:58)
[2016-08-03] MEDS: AMLODIPINE 5 MG TAB PO SCH (09:07)
[2016-08-03] MEDS: AZITHROMYCIN 250 MG TAB PO SCH (09:07)
[2016-08-03] MEDS: PAROXETINE 10 MG TAB PO SCH (09:07)
[2016-08-03] MEDS: HEPARIN 5,000 UNIT/0.5 ML VIAL SC SCH ×2 (09:12→21:01)
[2016-08-03] MEDS: INSULIN ASPART [NOVOLOG] 3 ML PEN SC SCH ×4 (09:13→21:01)
--- NOTE | 2016-08-03 12:16 | PN ---
Date/Time of Note Date/Time of Note DATE: 08/03/16 TIME: 12:14 Assessment/Plan VTE Prophylaxis VTE Prophylaxis Intervention: SCD's Lines/Catheters IV C[facility] Type (from [facility] Urinary Cath still in place: No Assessment/Plan Chief Complaint/Hosp Course Assessment and plan: - Acute bronchitis, continue Zithromax. - COPD exacerbation, continue breathing treatment. Dr. Natarajan is following in pulmonology consultation - End-stage renal disease stage V. Dr. Leon is following in nephrology consultation. - Pulmonary edema. Continue diuresis. - Anemia of chronic kidney disease. Continue Epogen. - Diabetes mellitus type 2, continue NovoLog per moderate algorithm sliding scale. - Hypertension, continue Norvasc. -Left upper extremity AV fistula Further recommendations based on clinical course. Plan of care discussed with Dr. Flores Problems: Subjective 24 Hr Interval Summary Free Text/Dictation Patient went to OR for HD cath placement and US of AV graft, no acute event prior to procedure per RN. Exam/Review of Systems Vital Signs Vitals Vital Signs Date Time Temp Pulse Resp B/P Pulse Ox O2 Delivery O2 Flow Rate FiO2 08/03/16 09:14 97.6 80 20 167/75 95 08/03/16 09:00 Nasal Cannula 2.0 Intake and Output 08/02/16 08/02/16 08/03/16 15:00 23:00 07:00 Intake Total 600 ml 100 ml Balance 600 ml 100 ml Results Result Diagram: 08/03/16 0440 08/03/16 0440 Results 24 hrs Laboratory Tests Test 08/02/16 16:54 08/02/16 20:43 08/03/16 01:58 08/03/16 04:40 Bedside Glucose 221 H 224 H 199 White Blood Count 8.7 # Red Blood Count 3.51 L Hemoglobin 10.5 L Hematocrit 34.0 L Mean Corpuscular Volume 96.9 Mean Corpuscular Hemoglobin 29.9 Mean Corpuscular Hemoglobin Concent 30.9 L Red Cell Distribution Width 14.4 Platelet Count 181 Mean Platelet Volume 10.3 Neutrophils % 89.9 H Lymphocytes % 5.4 L Monocytes % 3.1 Eosinophils % 0.0 Basophils % 0.1 Nucleated Red Blood Cells % 0.0 Neutrophils # 7.8 H Lymphocytes # 0.5 L Monocytes # 0.3 Eosinophils # 0.0 Basophils # 0.0 Nucleated Red Blood Cells # 0.0 Sodium Level 140 Potassium Level 4.4 Chloride Level 103 Carbon Dioxide Level 26 Anion Gap 15 Blood Urea Nitrogen 70 H Creatinine 6.61 H Glucose Level 203 Calcium Level 8.8 Test 08/03/16 08:12 Bedside Glucose 171 Medications Medications Current Medications Amlodipine Besylate (Norvasc) 5 mg DAILY PO Last administered on 08/03/16 09: 07; Admin Dose 5 MG; Start 08/01/16 at 09:00 Atorvastatin Calcium (Lipitor) 40 mg HS PO Last administered on 08/02/16 20:46 ; Admin Dose 40 MG; Start 08/01/16 at 21:00 Calcitriol (Rocaltrol) 0.25 mcg DAILY PO Last administered on 08/03/16 09:07; Admin Dose 0.25 MCG; Start 08/01/16 at 09:00 Calcium/Vitamin D (Oyster Shell/ Vit-D (500/200)) 1 tab BID PO Last administered on 08/03/16 09:07; Admin Dose 1 TAB; Start 08/01/16 at 09:00 Hydralazine HCl (Apresoline) 50 mg Q8 PO Last administered on 08/03/16 06:21; Admin Dose 50 MG; Start 08/01/16 at 06:00 Metoprolol Tartrate (Lopressor) 25 mg BID PO Last administered on 08/03/16 09: 07; Admin Dose 25 MG; Start 08/01/16 at 09:00 Paroxetine HCl (Paxil) 10 mg DAILY PO Last administered on 08/03/16 09:07; Admin Dose 10 MG; Start 08/01/16 at 09:00 Acetaminophen (Tylenol Tab) 650 mg Q4H PRN PO PAIN AND OR ELEVATED TEMP; Start 08/01/16 at 00:30 Hydralazine HCl (Apresoline) 20 mg Q6H PRN IV ELEVATED BLOOD PRESSURE; Start at 00:30 Guaifenesin/ Dextromethorphan (Robitussin Dm Liquid Cup) 10 ml Q4H PRN PO COUGH Last administered on 08/01/16 00:35; Admin Dose 10 ML; Start 08/01/16 at 00:30 Heparin Sodium (Porcine) (Heparin (5000 Units/0.5 ml)) 5,000 unit BID SC Last administered on 08/03/16 09:12; Admin Dose 5,000 UNIT; Start 08/01/16 at 09:00 Diagnostic Test (Pha) (Accu-Chek) 1 ea 02 XX Last administered on 08/03/16 02: 04; Admin Dose 1 EA; Start 08/01/16 at 02:00 Azithromycin (Zithromax) 250 mg DAILY PO Last administered on 08/03/16 09:07; Admin Dose 250 MG; Start 08/01/16 at 12:00 Methylprednisolone Sodium Succinate (Solu-Medrol) 40 mg Q6 IV Last administered on 08/03/16 06:20; Admin Dose 40 MG; Start 08/01/16 at 12:00 Epoetin Braden (Epogen (Esrd)) 6,000 units MoWeFr@17 SC Last administered on 08/02 21:00; Admin Dose 6,000 UNITS; Start 08/02/16 at 17:00 Miscellaneous Information 1 ea NOTE XX ; Start 08/02/16 at 12:30 Glucose (Glutose) 15 gm Q15M PRN PO DECREASED GLUCOSE; Start 08/02/16 at 12:30 Glucose (Glutose) 22.5 gm Q15M PRN PO DECREASED GLUCOSE; Start 08/02/16 at 12: 30 Dextrose (D50w Syringe) 25 ml Q15M PRN IV DECREASED GLUCOSE; Start 08/02/16 at 12:30 Dextrose (D50w Syringe) 50 ml Q15M PRN IV DECREASED GLUCOSE; Start 08/02/16 at 12:30 Glucagon (Glucagen) 1 mg Q15M PRN IM DECREASED GLUCOSE; Start 08/02/16 at 12:30 Glucose (Glutose) 15 gm Q15M PRN BUCCAL DECREASED GLUCOSE; Start 08/02/16 at 12 :30 BRYANT PERALTA Aug 03, 2016 12:16
--- NOTE | 2016-08-03 13:55 | OPR ---
Date/Time of Note Date/Time of Note DATE: 08/03/16 TIME: 13:53 Operative Report Free Text/Dictation DATE OF OPERATION: 08/03/2016 SURGEON: Travis Li MD PREOPERATIVE DIAGNOSIS: CKD V impending renal failure, non-matured AVF POSTOPERATIVE DIAGNOSIS: same ANESTHESIA: Local BLOOD LOSS: minimal COMPLICATIONS: None. ACCESS: Right common femoral vein INDICATIONS: This is a 85 year-old female with CKD stage V impending renal failure and volume overload requiring dialysis. Patient and family have been informed of the alternatives, risks, and benefits. Risks including but not limited to bleeding, thrombosis, embolization, myocardial infarction, , device malfunction, infection, pneumothorax, nephrotoxicity and patient has agreed to proceed. PROCEDURE: 1. Ultrasound guided access of right common femoral vein 2. Emergent Right common femoral vein non-tunneled hemodialysis catheter placement DESCRIPTION: The patient was in supine position in her bed. Bed was placed in slight Trendelenburg position and the groin was prepped and draped with sterile technique. The central catheter was flushed with heparin to ensure function of each port. Landmarks were identified and the skin entry site was chosen using ultrasound guidance. The skin And subcutaneous tissue were anesthetized with 1% lidocaine. The vein was then located with a needle with a 10 mL syringe using ultrasound guidance. The needle was then directed towards the vein and was entered. The needle position was secured and syringe was removed. The hub was occluded to prevent venous air embolus. The guidewire was passed easily and the needle was removed while the wire was held in place. A small incision was then made at the point of the wire entry. The dilator was placed over the wire and the tract gently dilated. The catheter was fed over the wire, ensuring the wire exited from the port before advancing the catheter. The catheter was inserted to the desired depth and the wire removed. Each port was aspirated to ensure adequate blood flow and then flushed with heparinized saline solution. The catheter was secured in place with a 2-0 nylon suture and a sterile dressing was applied. The patient tolerated the procedure well and was in stable condition. All instrument, sponge and needle counts were correct 2. TRAVIS LI MD Aug 03, 2016 13:54
[2016-08-03] MEDS ORDERED: HEPARIN 1000 UNITS/ML 10 ML INJ CATHETER SCH (15:30)
--- NOTE | 2016-08-03 18:54 | CONS ---
Date/Time of Note Date/Time of Note DATE: 08/03/16 TIME: 18:53 Assessment/Plan Assessment/Plan Chief Complaint/Hosp Course IMPRESSION: 1. End-stage renal disease stage V. 2. Fluid overload. 3. Pulmonary edema. 4. Anemia of chronic kidney disease. 5. History of diabetes mellitus. 6. 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 7. AV fistula on the left upper extremity. plan continue hd d/w dr nguyen to make arrangement for out hd Problems: Consultation Date/Type/Reason Admit Date/Time Jul 31, 2016 at 19:59 Initial Consult Date 08/01/16 Type of Consultation: renal 24 HR Interval Summary Subjective hx not possible: other (seen on hd) Exam/Review of Systems Vital Signs Vitals Vital Signs Date Time Temp Pulse Resp B/P Pulse Ox O2 Delivery O2 Flow Rate FiO2 08/03/16 16:30 88 20 08/03/16 13:24 97.7 132/63 96 Nasal Cannula 08/03/16 09:00 2.0 Intake and Output 08/02/16 08/02/16 08/03/16 15:00 23:00 07:00 Intake Total 600 ml 100 ml Balance 600 ml 100 ml Exam Neck: supple Respiratory: diminished breath sounds Cardiovascular: regular rate and rhythm Gastrointestinal: soft Extremities: edema (+) Results Result Diagram: 08/03/1643908/03/160 Results 24 hrs Laboratory Tests Test 08/02/16 20:43 08/03/16 01:58 08/03/16 04:40 08/03/16 08:12 Bedside Glucose 224 H 199 171 White Blood Count 8.7 # Red Blood Count 3.51 L Hemoglobin 10.5 L Hematocrit 34.0 L Mean Corpuscular Volume 96.9 Mean Corpuscular Hemoglobin 29.9 Mean Corpuscular Hemoglobin Concent 30.9 L Red Cell Distribution Width 14.4 Platelet Count 181 Mean Platelet Volume 10.3 Neutrophils % 89.9 H Lymphocytes % 5.4 L Monocytes % 3.1 Eosinophils % 0.0 Basophils % 0.1 Nucleated Red Blood Cells % 0.0 Neutrophils # 7.8 H Lymphocytes # 0.5 L Monocytes # 0.3 Eosinophils # 0.0 Basophils # 0.0 Nucleated Red Blood Cells # 0.0 Sodium Level 140 Potassium Level 4.4 Chloride Level 103 Carbon Dioxide Level 26 Anion Gap 15 Blood Urea Nitrogen 70 H Creatinine 6.61 H Glucose Level 203 Calcium Level 8.8 Test 08/03/16 14:38 Bedside Glucose 216 Medications Medications Current Medications Amlodipine Besylate (Norvasc) 5 mg DAILY PO Last administered on 08/03/16 09: 07; Admin Dose 5 MG; Start 08/01/16 at 09:00 Atorvastatin Calcium (Lipitor) 40 mg HS PO Last administered on 08/02/16 20:46 ; Admin Dose 40 MG; Start 08/01/16 at 21:00 Calcitriol (Rocaltrol) 0.25 mcg DAILY PO Last administered on 08/03/16 09:07; Admin Dose 0.25 MCG; Start 08/01/16 at 09:00 Calcium/Vitamin D (Oyster Shell/ Vit-D (500/200)) 1 tab BID PO Last administered on 08/03/16 09:07; Admin Dose 1 TAB; Start 08/01/16 at 09:00 Hydralazine HCl (Apresoline) 50 mg Q8 PO Last administered on 08/03/16 06:21; Admin Dose 50 MG; Start 08/01/16 at 06:00 Metoprolol Tartrate (Lopressor) 25 mg BID PO Last administered on 08/03/16 09: 07; Admin Dose 25 MG; Start 08/01/16 at 09:00 Paroxetine HCl (Paxil) 10 mg DAILY PO Last administered on 08/03/16 09:07; Admin Dose 10 MG; Start 08/01/16 at 09:00 Acetaminophen (Tylenol Tab) 650 mg Q4H PRN PO PAIN AND OR ELEVATED TEMP; Start 08/01/16 at 00:30 Hydralazine HCl (Apresoline) 20 mg Q6H PRN IV ELEVATED BLOOD PRESSURE; Start at 00:30 Guaifenesin/ Dextromethorphan (Robitussin Dm Liquid Cup) 10 ml Q4H PRN PO COUGH Last administered on 08/01/16 00:35; Admin Dose 10 ML; Start 08/01/16 at 00:30 Heparin Sodium (Porcine) (Heparin (5000 Units/0.5 ml)) 5,000 unit BID SC Last administered on 08/03/16 09:12; Admin Dose 5,000 UNIT; Start 08/01/16 at 09:00 Diagnostic Test (Pha) (Accu-Chek) 1 ea 02 XX Last administered on 08/03/16 02: 04; Admin Dose 1 EA; Start 08/01/16 at 02:00 Azithromycin (Zithromax) 250 mg DAILY PO Last administered on 08/03/16 09:07; Admin Dose 250 MG; Start 08/01/16 at 12:00 Methylprednisolone Sodium Succinate (Solu-Medrol) 40 mg Q6 IV Last administered on 08/03/16 17:59; Admin Dose 40 MG; Start 08/01/16 at 12:00 Epoetin Braden (Epogen (Esrd)) 6,000 units MoWeFr@17 SC Last administered on 08/02 21:00; Admin Dose 6,000 UNITS; Start 08/02/16 at 17:00 Miscellaneous Information 1 ea NOTE XX ; Start 08/02/16 at 12:30 Glucose (Glutose) 15 gm Q15M PRN PO DECREASED GLUCOSE; Start 08/02/16 at 12:30 Glucose (Glutose) 22.5 gm Q15M PRN PO DECREASED GLUCOSE; Start 08/02/16 at 12: 30 Dextrose (D50w Syringe) 25 ml Q15M PRN IV DECREASED GLUCOSE; Start 08/02/16 at 12:30 Dextrose (D50w Syringe) 50 ml Q15M PRN IV DECREASED GLUCOSE; Start 08/02/16 at 12:30 Glucagon (Glucagen) 1 mg Q15M PRN IM DECREASED GLUCOSE; Start 08/02/16 at 12:30 Glucose (Glutose) 15 gm Q15M PRN BUCCAL DECREASED GLUCOSE; Start 08/02/16 at 12 :30 DAT OLSON MD Aug 03, 2016 18:54
[2016-08-03] MEDS: ATORVASTATIN 40 MG TAB PO SCH (20:59)
[2016-08-04] MEDS: ACCU-CHEK XX SCH (01:59)
[2016-08-04 05:02] LABS: ADD SCAN DIFF NO
[2016-08-04] MEDS: METHYLPREDNISOLONE 40 MG INJ IV SCH ×3 (05:16→17:54)
[2016-08-04] MEDS: FUROSEMIDE 40 MG INJ IV SCH ×2 (05:17→17:54)
[2016-08-04 05:19] LABS: ABNORMAL IP MESSAGE 1; BASOPHILS % 0.1 % (0.0-2.0); HEMATOCRIT 34.1 % (37.0-47.0); HEMOGLOBIN 10.4 g/dl (12.0-16.0); LYMPHOCYTES # 0.4 10^3/ul (0.8-2.9); LYMPHOCYTES % 4.8 % (15.0-51.0); MEAN CORPUSCULAR HEMOGLOBIN 29.5 pg (29.0-33.0); MEAN CORPUSCULAR HGB CONC 30.5 g/dl (32.0-37.0); MEAN CORPUSCULAR VOLUME 96.6 fl (82.0-101.0); MEAN PLATELET VOLUME 10.2 fl (7.4-10.4); MONOCYTE # 0.3 10^3/ul (0.3-0.9); NEUTROPHIL # 7.6 10^3/ul (1.6-7.5); NEUTROPHILS % 88.9 % (39.0-77.0); NUCLEATED RED BLOOD CELLS # 0.1 10^3/ul (0.0-0.0); NUCLEATED RED BLOOD CELLS% 1.3 /100WBC (0.0-0.0); PLATELET COUNT 175 10^3/UL (140-415); RED BLOOD COUNT 3.53 10^6/ul (4.20-5.40); RED CELL DISTRIBUTION WIDTH 14.3 % (11.5-14.5); WHITE BLOOD COUNT 8.6 10^3/ul (4.8-10.8)
[2016-08-04 05:24] LABS: POTASSIUM 4.5 mmol/L (3.5-5.1)
[2016-08-04 05:26] LABS: CREATININE 5.38 mg/dl (0.44-1.00)
[2016-08-04 05:27] LABS: CALCIUM 8.5 mg/dl (8.4-10.2)
[2016-08-04 07:00] VITALS: BP 159/75; RESP 20
--- NOTE | 2016-08-04 08:17 | RADRPT ---
PROCEDURE: Left upper extremity AV fistula ultrasound. CLINICAL INDICATION: Poorly functioning upper extremity dialysis fistula. TECHNIQUE: Schofield-scale and color Doppler images of a left upper extremity dialysis fistula were obt ained. COMPARISON: None available FINDINGS: Patent left upper extremity brachiocephalic dialysis fistula is identified. Diameters and velocities are as follows: Proximal fistula 234 cm/s, 0.5 cm. Mid fistula 284 cm/s, 0.6 cm. Distal fistula 127 cm/s, 0.6 cm. Brachial artery proximal to the arterial anastomosis 146 cm/s The left subclavian and axillary arteries are patent with antegrade flow. IMPRESSION: Patent left upper extremity brachiocephalic dialysis fistula with velocities and diameters as given. RPTAT: AA .Fabricio Reyes MD, Date Time Electronically viewed and signed by .Fabricio Reyes MD, on 08/04/2016 08:17 .P/
[2016-08-04] MEDS: PAROXETINE 10 MG TAB PO SCH (08:50)
[2016-08-04] MEDS: CALCITRIOL 0.25 MCG CAP PO SCH ×2 (08:50→09:02)
[2016-08-04] MEDS: AZITHROMYCIN 250 MG TAB PO SCH (08:50)
[2016-08-04] MEDS: CALCIUM/VITAMIN D (500/200) TAB PO SCH ×2 (08:51→20:59)
[2016-08-04] MEDS: AMLODIPINE 5 MG TAB PO SCH (08:51)
[2016-08-04] MEDS: METOPROLOL 25 MG TAB PO SCH ×2 (08:51→20:59)
[2016-08-04] MEDS: HEPARIN 5,000 UNIT/0.5 ML VIAL SC SCH (08:55)
[2016-08-04] MEDS: INSULIN ASPART [NOVOLOG] 3 ML PEN SC SCH ×4 (08:56→21:05)
[2016-08-04] MEDS: EPOETIN 3000 UNITS/1 ML INJ (ESRD) SC SCH (17:55)
--- NOTE | 2016-08-04 18:36 | PN ---
Date/Time of Note Date/Time of Note DATE: 08/04/16 TIME: 18:32 Assessment/Plan VTE Prophylaxis VTE Prophylaxis Intervention: SCD's Lines/Catheters IV C[facility]ter Type (from [facility] Urinary Cath still in place: No Assessment/Plan Chief Complaint/Hosp Course Assessment and plan: - Acute bronchitis, continue Zithromax. - COPD exacerbation, continue breathing treatment. Dr. Natarajan is following in pulmonology consultation - End-stage renal disease stage V. Dr. Leon is following in nephrology consultation. Continue to hemodialysis via right femoral hemodialysis catheter. - Pulmonary edema. Continue diuresis. - Anemia of chronic kidney disease. Continue Epogen. - Diabetes mellitus type 2, continue NovoLog per moderate algorithm sliding scale. - Hypertension, continue Norvasc. -Left upper extremity AV fistula, non-matured -Status post right hemodialysis non-tunneled catheter placement by Dr. Manning on 08/03. Plan for tunneled hemodialysis catheter placement tomorrow. Further recommendations based on clinical course. Plan of care discussed with Dr. Flores Problems: Subjective 24 Hr Interval Summary Free Text/Dictation Patient was elevated glucose today, continue NovoLog and resume Januvia, patient with some diminished air entry bilaterally however denies any shortness of breath denies chest pain. Exam/Review of Systems Vital Signs Vitals Vital Signs Date Time Temp Pulse Resp B/P Pulse Ox O2 Delivery O2 Flow Rate FiO2 08/04/16 09:00 Nasal Cannula 2.0 08/04/16 07:00 98.4 75 20 159/75 96 Intake and Output 08/03/16 08/03/16 08/04/16 14:59 22:59 06:59 Intake Total 980 ml 250 ml Output Total 2500 ml Balance -1520 ml 250 ml Exam Constitutional: alert, oriented Psych: no complaints Head: atraumatic, normocephalic Eyes: nl conjunctiva ENMT: nl external ears & nose, nl lips & teeth Neck: non-tender, supple Respiratory: clear to auscultation, crackles/rales Cardiovascular: nl pulses, regular rate and rhythm Gastrointestinal: non-tender, soft Musculoskeletal: nl extremities to inspection Extremities: normal pulses 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: [employer] II-XII intact Additional Comments Left upper extremities with AV fistula with palpable thrill and audible bruit Right femoral non-tunneled hemodialysis catheter Results Result Diagram: 08/04/16 0450 08/04/16 0450 Results 24 hrs Laboratory Tests Test 08/03/16 20:02 08/04/16 01:57 08/04/16 04:50 08/04/16 07:51 Bedside Glucose 238 H 177 211 White Blood Count 8.6 Red Blood Count 3.53 L Hemoglobin 10.4 L Hematocrit 34.1 L Mean Corpuscular Volume 96.6 Mean Corpuscular Hemoglobin 29.5 Mean Corpuscular Hemoglobin Concent 30.5 L Red Cell Distribution Width 14.3 Platelet Count 175 Mean Platelet Volume 10.2 Neutrophils % 88.9 H Lymphocytes % 4.8 L Monocytes % 4.0 Eosinophils % 0.0 Basophils % 0.1 Nucleated Red Blood Cells % 1.3 H Neutrophils # 7.6 H Lymphocytes # 0.4 L Monocytes # 0.3 Eosinophils # 0.0 Basophils # 0.0 Nucleated Red Blood Cells # 0.1 H Sodium Level 138 Potassium Level 4.5 Chloride Level 101 Carbon Dioxide Level 28 Anion Gap 14 Blood Urea Nitrogen 58 H Creatinine 5.38 H Glucose Level 229 H Calcium Level 8.5 Test 08/04/16 11:56 08/04/16 17:52 Bedside Glucose 328 H 310 H Medications Medications Current Medications Amlodipine Besylate (Norvasc) 5 mg DAILY PO Last administered on 08/04/16 08: 51; Admin Dose 5 MG; Start 08/01/16 at 09:00 Atorvastatin Calcium (Lipitor) 40 mg HS PO Last administered on 08/03/16 20:59 ; Admin Dose 40 MG; Start 08/01/16 at 21:00 Calcitriol (Rocaltrol) 0.25 mcg DAILY PO Last administered on 08/04/16 09:02; Admin Dose 0.25 MCG; Start 08/01/16 at 09:00 Calcium/Vitamin D (Oyster Shell/ Vit-D (500/200)) 1 tab BID PO Last administered on 08/04/16 08:51; Admin Dose 1 TAB; Start 08/01/16 at 09:00 Hydralazine HCl (Apresoline) 50 mg Q8 PO Last administered on 08/04/16 13:37; Admin Dose 50 MG; Start 08/01/16 at 06:00 Metoprolol Tartrate (Lopressor) 25 mg BID PO Last administered on 08/04/16 08: 51; Admin Dose 25 MG; Start 08/01/16 at 09:00 Paroxetine HCl (Paxil) 10 mg DAILY PO Last administered on 08/04/16 08:50; Admin Dose 10 MG; Start 08/01/16 at 09:00 Acetaminophen (Tylenol Tab) 650 mg Q4H PRN PO PAIN AND OR ELEVATED TEMP; Start 08/01/16 at 00:30 Hydralazine HCl (Apresoline) 20 mg Q6H PRN IV ELEVATED BLOOD PRESSURE; Start at 00:30 Guaifenesin/ Dextromethorphan (Robitussin Dm Liquid Cup) 10 ml Q4H PRN PO COUGH Last administered on 08/01/16 00:35; Admin Dose 10 ML; Start 08/01/16 at 00:30 Heparin Sodium (Porcine) (Heparin (5000 Units/0.5 ml)) 5,000 unit BID SC Last administered on 08/04/16 08:55; Admin Dose 5,000 UNIT; Start 08/01/16 at 09:00 ; Status Future Hold Diagnostic Test (Pha) (Accu-Chek) 1 ea 02 XX Last administered on 08/04/16 01: 59; Admin Dose 1 EA; Start 08/01/16 at 02:00 Azithromycin (Zithromax) 250 mg DAILY PO Last administered on 08/04/16 08:50; Admin Dose 250 MG; Start 08/01/16 at 12:00 Methylprednisolone Sodium Succinate (Solu-Medrol) 40 mg Q6 IV Last administered on 08/04/16 17:54; Admin Dose 40 MG; Start 08/01/16 at 12:00 Epoetin Braden (Epogen (Esrd)) 6,000 units MoWeFr@17 SC Last administered on 08/04 17:55; Admin Dose 6,000 UNITS; Start 08/02/16 at 17:00 Miscellaneous Information 1 ea NOTE XX ; Start 08/02/16 at 12:30 Glucose (Glutose) 15 gm Q15M PRN PO DECREASED GLUCOSE; Start 08/02/16 at 12:30 Glucose (Glutose) 22.5 gm Q15M PRN PO DECREASED GLUCOSE; Start 08/02/16 at 12: 30 Dextrose (D50w Syringe) 25 ml Q15M PRN IV DECREASED GLUCOSE; Start 08/02/16 at 12:30 Dextrose (D50w Syringe) 50 ml Q15M PRN IV DECREASED GLUCOSE; Start 08/02/16 at 12:30 Glucagon (Glucagen) 1 mg Q15M PRN IM DECREASED GLUCOSE; Start 08/02/16 at 12:30 Glucose (Glutose) 15 gm Q15M PRN BUCCAL DECREASED GLUCOSE; Start 08/02/16 at 12 :30 BRYANT PERALTA Aug 04, 2016 18:36
--- NOTE | 2016-08-04 19:17 | CONS ---
Date/Time of Note Date/Time of Note DATE: 08/04/16 TIME: 19:16 Assessment/Plan Assessment/Plan Chief Complaint/Hosp Course IMPRESSION: 1. End-stage renal disease stage V. 2. Fluid overload.better 3. Pulmonary edema.better 4. Anemia of chronic kidney disease. 5. History of diabetes mellitus. 6. 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 7. AV fistula on the left upper extremity. plan continue hd d/w dr nguyen to make arrangement for out hd permacath placement Problems: Consultation Date/Type/Reason Admit Date/Time Jul 31, 2016 at 19:59 Initial Consult Date 08/01/16 Type of Consultation: renal 24 HR Interval Summary Constitutional: no complaints Exam/Review of Systems Vital Signs Vitals Vital Signs Date Time Temp Pulse Resp B/P Pulse Ox O2 Delivery O2 Flow Rate FiO2 08/04/16 09:00 Nasal Cannula 2.0 08/04/16 07:00 98.4 75 20 159/75 96 Intake and Output 08/03/16 08/03/16 08/04/16 15:00 23:00 07:00 Intake Total 980 ml 250 ml Output Total 2500 ml Balance -1520 ml 250 ml Exam Neck: supple Respiratory: clear to auscultation Cardiovascular: regular rate and rhythm Gastrointestinal: soft Musculoskeletal: nl extremities to inspection Extremities: normal pulses Results Result Diagram: 08/04/16 0450 08/04/16 0450 Results 24 hrs Laboratory Tests Test 08/03/16 20:02 08/04/16 01:57 08/04/16 04:50 08/04/16 07:51 Bedside Glucose 238 H 177 211 White Blood Count 8.6 Red Blood Count 3.53 L Hemoglobin 10.4 L Hematocrit 34.1 L Mean Corpuscular Volume 96.6 Mean Corpuscular Hemoglobin 29.5 Mean Corpuscular Hemoglobin Concent 30.5 L Red Cell Distribution Width 14.3 Platelet Count 175 Mean Platelet Volume 10.2 Neutrophils % 88.9 H Lymphocytes % 4.8 L Monocytes % 4.0 Eosinophils % 0.0 Basophils % 0.1 Nucleated Red Blood Cells % 1.3 H Neutrophils # 7.6 H Lymphocytes # 0.4 L Monocytes # 0.3 Eosinophils # 0.0 Basophils # 0.0 Nucleated Red Blood Cells # 0.1 H Sodium Level 138 Potassium Level 4.5 Chloride Level 101 Carbon Dioxide Level 28 Anion Gap 14 Blood Urea Nitrogen 58 H Creatinine 5.38 H Glucose Level 229 H Calcium Level 8.5 Test 08/04/16 11:56 08/04/16 17:52 Bedside Glucose 328 H 310 H Medications Medications Current Medications Amlodipine Besylate (Norvasc) 5 mg DAILY PO Last administered on 08/04/16 08: 51; Admin Dose 5 MG; Start 08/01/16 at 09:00 Atorvastatin Calcium (Lipitor) 40 mg HS PO Last administered on 08/03/16 20:59 ; Admin Dose 40 MG; Start 08/01/16 at 21:00 Calcitriol (Rocaltrol) 0.25 mcg DAILY PO Last administered on 08/04/16 09:02; Admin Dose 0.25 MCG; Start 08/01/16 at 09:00 Calcium/Vitamin D (Oyster Shell/ Vit-D (500/200)) 1 tab BID PO Last administered on 08/04/16 08:51; Admin Dose 1 TAB; Start 08/01/16 at 09:00 Hydralazine HCl (Apresoline) 50 mg Q8 PO Last administered on 08/04/16 13:37; Admin Dose 50 MG; Start 08/01/16 at 06:00 Metoprolol Tartrate (Lopressor) 25 mg BID PO Last administered on 08/04/16 08: 51; Admin Dose 25 MG; Start 08/01/16 at 09:00 Paroxetine HCl (Paxil) 10 mg DAILY PO Last administered on 08/04/16 08:50; Admin Dose 10 MG; Start 08/01/16 at 09:00 Acetaminophen (Tylenol Tab) 650 mg Q4H PRN PO PAIN AND OR ELEVATED TEMP; Start 08/01/16 at 00:30 Hydralazine HCl (Apresoline) 20 mg Q6H PRN IV ELEVATED BLOOD PRESSURE; Start at 00:30 Guaifenesin/ Dextromethorphan (Robitussin Dm Liquid Cup) 10 ml Q4H PRN PO COUGH Last administered on 08/01/16 00:35; Admin Dose 10 ML; Start 08/01/16 at 00:30 Heparin Sodium (Porcine) (Heparin (5000 Units/0.5 ml)) 5,000 unit BID SC Last administered on 08/04/16 08:55; Admin Dose 5,000 UNIT; Start 08/01/16 at 09:00 ; Status Future Hold Diagnostic Test (Pha) (Accu-Chek) 1 ea 02 XX Last administered on 08/04/16 01: 59; Admin Dose 1 EA; Start 08/01/16 at 02:00 Azithromycin (Zithromax) 250 mg DAILY PO Last administered on 08/04/16 08:50; Admin Dose 250 MG; Start 08/01/16 at 12:00 Methylprednisolone Sodium Succinate (Solu-Medrol) 40 mg Q6 IV Last administered on 08/04/16 17:54; Admin Dose 40 MG; Start 08/01/16 at 12:00 Epoetin Braden (Epogen (Esrd)) 6,000 units MoWeFr@17 SC Last administered on 08/04 17:55; Admin Dose 6,000 UNITS; Start 08/02/16 at 17:00 Miscellaneous Information 1 ea NOTE XX ; Start 08/02/16 at 12:30 Glucose (Glutose) 15 gm Q15M PRN PO DECREASED GLUCOSE; Start 08/02/16 at 12:30 Glucose (Glutose) 22.5 gm Q15M PRN PO DECREASED GLUCOSE; Start 08/02/16 at 12: 30 Dextrose (D50w Syringe) 25 ml Q15M PRN IV DECREASED GLUCOSE; Start 08/02/16 at 12:30 Dextrose (D50w Syringe) 50 ml Q15M PRN IV DECREASED GLUCOSE; Start 08/02/16 at 12:30 Glucagon (Glucagen) 1 mg Q15M PRN IM DECREASED GLUCOSE; Start 08/02/16 at 12:30 Glucose (Glutose) 15 gm Q15M PRN BUCCAL DECREASED GLUCOSE; Start 08/02/16 at 12 :30 Linagliptin (Tradjenta) 5 mg DAILY PO ; Start 08/04/16 at 20:00 DAT OLSON MD Aug 04, 2016 19:17
[2016-08-04] MEDS: LINAGLIPTIN 5 MG TABLET PO SCH (20:01)
[2016-08-04 20:39] VITALS: BP 136/66; RESP 18
[2016-08-04] MEDS: ATORVASTATIN 40 MG TAB PO SCH (20:59)
[2016-08-05] VITALS (19 sets, daily range): BP systolic 113–163; BP diastolic 53–72; PULSE 70–93; RESP 16–25
[2016-08-05] MEDS: METHYLPREDNISOLONE 40 MG INJ IV SCH ×5 (00:05→23:41)
[2016-08-05] MEDS: ALBUTEROL/IPRATROPIUM (NEB) 3 ML AMP HHN PRN ×2 (00:18→22:05)
[2016-08-05] MEDS: ACCU-CHEK XX SCH (01:55)
[2016-08-05] MEDS: CALCIUM/VITAMIN D (500/200) TAB PO SCH ×2 (08:23→21:11)
[2016-08-05] MEDS: CALCITRIOL 0.25 MCG CAP PO SCH (08:24)
[2016-08-05] MEDS: LINAGLIPTIN 5 MG TABLET PO SCH (08:25)
[2016-08-05] MEDS: PAROXETINE 10 MG TAB PO SCH (08:25)
[2016-08-05] MEDS: AZITHROMYCIN 250 MG TAB PO SCH (08:26)
[2016-08-05] MEDS: FUROSEMIDE 40 MG INJ IV SCH ×2 (08:26→18:12)
[2016-08-05] MEDS: AMLODIPINE 5 MG TAB PO SCH (08:27)
[2016-08-05] MEDS: METOPROLOL 25 MG TAB PO SCH ×2 (08:27→21:12)
[2016-08-05] MEDS: INSULIN ASPART [NOVOLOG] 3 ML PEN SC SCH ×4 (08:36→21:14)
[2016-08-05 08:46] LABS: ADD SCAN DIFF NO
[2016-08-05 08:55] LABS: ABNORMAL IP MESSAGE 1; BASOPHILS % 0.1 % (0.0-2.0); HEMATOCRIT 38.4 % (37.0-47.0); HEMOGLOBIN 11.8 g/dl (12.0-16.0); LYMPHOCYTES # 0.3 10^3/ul (0.8-2.9); LYMPHOCYTES % 2.1 % (15.0-51.0); MEAN CORPUSCULAR HEMOGLOBIN 29.4 pg (29.0-33.0); MEAN CORPUSCULAR HGB CONC 30.7 g/dl (32.0-37.0); MEAN CORPUSCULAR VOLUME 95.5 fl (82.0-101.0); MEAN PLATELET VOLUME 10.5 fl (7.4-10.4); NEUTROPHIL # 11.1 10^3/ul (1.6-7.5); NEUTROPHILS % 89.2 % (39.0-77.0); NUCLEATED RED BLOOD CELLS # 0.3 10^3/ul (0.0-0.0); PLATELET COUNT 176 10^3/UL (140-415); RED BLOOD COUNT 4.02 10^6/ul (4.20-5.40); RED CELL DISTRIBUTION WIDTH 13.9 % (11.5-14.5); WHITE BLOOD COUNT 12.5 10^3/ul (4.8-10.8)
[2016-08-05 09:12] LABS: POTASSIUM 3.6 mmol/L (3.5-5.1)
[2016-08-05 09:15] LABS: CREATININE 4.07 mg/dl (0.44-1.00)
[2016-08-05 09:16] LABS: CALCIUM 8.6 mg/dl (8.4-10.2)
[2016-08-05] MEDS ORDERED: LIDOCAINE 1% (MDV) 20 ML INJ ONE (14:09)
[2016-08-05] MEDS ORDERED: HEPARIN 1000 UNITS/ML 10 ML INJ ONE (14:10)
[2016-08-05] MEDS ORDERED: SOD CHLORIDE 0.9% 500 ML ONE (14:10)
--- NOTE | 2016-08-05 14:40 | PN ---
Date/Time of Note Date/Time of Note DATE: 08/05/16 TIME: 14:35 Assessment/Plan Lines/Catheters IV Catheter Type (from [facility]): Saline Lock Chavez in Place (from [facility]): No Assessment/Plan Chief Complaint/Hosp Course -Chronic kidney disease stage V, impending end-stage renal disease: S/P Maurice Catheter -Will schedule for perm cath -Bilateral lower extremity atherosclerosis: Will continue our vascular surveillance. No further intervention is needed at this time and will follow as an outpatient. -Optimize vascular status (blood pressure medications, diet, nutrition, exercise , sugar control, antiplatelets). -Discussed findings, plan and management with the patient. 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 -Thank you for allowing us to partake in the care of your patient. Please call with any questions. Problems: Subjective 24 Hr Interval Summary no new vascular events overnight Exam/Review of Systems Vital Signs Vitals Vital Signs Date Time Temp Pulse Resp B/P Pulse Ox O2 Delivery O2 Flow Rate FiO2 08/05/16 10:40 Nasal Cannula 2.0 08/05/16 08:09 98.0 72 19 141/62 98 Intake and Output 08/04/16 08/04/16 08/05/16 15:00 23:00 07:00 Intake Total 1120 ml 250 ml Output Total 400 ml 500 ml Balance 720 ml -250 ml Exam Free Text/Dictation GENERAL: Alert and oriented x3. PULMONARY: Bilateral crackles at the bases. CARDIOVASCULAR: S1, S2 present. ABDOMEN: Soft, nontender, nondistended. Bowel sounds positive. Truncal obesity. EXTREMITIES: LEFT UPPER EXTREMITY: Palpable brachial pulse. Motor, sensory intact. Capillary refill 2 to 3 seconds. Surgical scar well healed. Fistula with bruit and thrill present. Results Result Diagram: 08/05/16 0800 08/05/16 0800 ELIZA LI MD Aug 05, 2016 14:39
[2016-08-05] MEDS ORDERED: MIDAZOLAM 1 MG/ML 2 ML INJ ONE (15:01)
[2016-08-05] MEDS ORDERED: CEFAZOLIN 1 GM/50 ML (PMX) 50 ML IVPB ONE (15:01)
[2016-08-05] MEDS ORDERED: FENTAnyl 50 MCG/ML VIAL ONE (15:01)
--- NOTE | 2016-08-05 15:51 | PN ---
Date/Time of Note Date/Time of Note DATE: 08/05/16 TIME: 15:51 Assessment/Plan Lines/Catheters IV Catheter Type (from Nrs): Saline Lock Urinary Cath still in place: No Assessment/Plan Assessment/Plan Acute bronchitis, continue Zithromax. - COPD exacerbation, continue breathing treatment. Dr. Natarajan is following in pulmonology consultation - End-stage renal disease stage V. Dr. Leon is following in nephrology consultation. Continue to hemodialysis via right femoral hemodialysis catheter. - Pulmonary edema. Continue diuresis. - Anemia of chronic kidney disease. Continue Epogen. - Diabetes mellitus type 2, continue NovoLog per moderate algorithm sliding scale. - Hypertension, continue Norvasc. -Left upper extremity AV fistula, non-matured -Status post right hemodialysis non-tunneled catheter placement by Dr. Manning on 08/03. Plan for tunneled hemodialysis catheter placement tomorrow. Further recommendations based on clinical course. Plan of care discussed with Dr. Flores Subjective 24 Hr Interval Summary Free Text/Dictation off floor- gone for permacath placement. no new issues reported. dw staff Exam/Review of Systems Vital Signs Vitals Vital Signs Date Time Temp Pulse Resp B/P Pulse Ox O2 Delivery O2 Flow Rate FiO2 08/05/16 10:40 Nasal Cannula 2.0 08/05/16 08:09 98.0 72 19 141/62 98 Intake and Output 08/04/16 08/04/16 08/05/16 15:00 23:00 07:00 Intake Total 1120 ml 250 ml Output Total 400 ml 500 ml Balance 720 ml -250 ml Results Result Diagram: 08/05/16 0800 08/05/16 0800 Results 24 hrs Laboratory Tests Test 08/04/16 17:52 08/04/16 20:57 08/05/16 01:54 08/05/16 08:00 Bedside Glucose 310 H 222 H 225 H White Blood Count 12.5 #H Red Blood Count 4.02 L Hemoglobin 11.8 L Hematocrit 38.4 Mean Corpuscular Volume 95.5 Mean Corpuscular Hemoglobin 29.4 Mean Corpuscular Hemoglobin Concent 30.7 L Red Cell Distribution Width 13.9 Platelet Count 176 Mean Platelet Volume 10.5 H Neutrophils % 89.2 H Lymphocytes % 2.1 L Monocytes % 8.0 Eosinophils % 0.0 Basophils % 0.1 Nucleated Red Blood Cells % 2.0 H Neutrophils # 11.1 H Lymphocytes # 0.3 L Monocytes # 1.0 H Eosinophils # 0.0 Basophils # 0.0 Nucleated Red Blood Cells # 0.3 H Sodium Level 136 Potassium Level 3.6 Chloride Level 100 Carbon Dioxide Level 26 Anion Gap 14 Blood Urea Nitrogen 49 H Creatinine 4.07 #H Glucose Level 245 H Calcium Level 8.6 Test 08/05/16 08:29 08/05/16 12:17 08/05/16 12:32 Bedside Glucose 228 H 168 171 Medications Medications Current Medications Amlodipine Besylate (Norvasc) 5 mg DAILY PO Last administered on 08/05/16 08: 27; Admin Dose 5 MG; Start 08/01/16 at 09:00 Atorvastatin Calcium (Lipitor) 40 mg HS PO Last administered on 08/04/16 20:59 ; Admin Dose 40 MG; Start 08/01/16 at 21:00 Calcitriol (Rocaltrol) 0.25 mcg DAILY PO Last administered on 08/04/16 09:02; Admin Dose 0.25 MCG; Start 08/01/16 at 09:00 Calcium/Vitamin D (Oyster Shell/ Vit-D (500/200)) 1 tab BID PO Last administered on 08/04/16 20:59; Admin Dose 1 TAB; Start 08/01/16 at 09:00 Hydralazine HCl (Apresoline) 50 mg Q8 PO Last administered on 08/04/16 22:02; Admin Dose 50 MG; Start 08/01/16 at 06:00 Metoprolol Tartrate (Lopressor) 25 mg BID PO Last administered on 08/05/16 08: 27; Admin Dose 25 MG; Start 08/01/16 at 09:00 Paroxetine HCl (Paxil) 10 mg DAILY PO Last administered on 08/04/16 08:50; Admin Dose 10 MG; Start 08/01/16 at 09:00 Acetaminophen (Tylenol Tab) 650 mg Q4H PRN PO PAIN AND OR ELEVATED TEMP; Start 08/01/16 at 00:30 Hydralazine HCl (Apresoline) 20 mg Q6H PRN IV ELEVATED BLOOD PRESSURE; Start at 00:30 Guaifenesin/ Dextromethorphan (Robitussin Dm Liquid Cup) 10 ml Q4H PRN PO COUGH Last administered on 08/01/16 00:35; Admin Dose 10 ML; Start 08/01/16 at 00:30 Heparin Sodium (Porcine) (Heparin (5000 Units/0.5 ml)) 5,000 unit BID SC Last administered on 08/04/16 08:55; Admin Dose 5,000 UNIT; Start 08/01/16 at 09:00 ; Status Future Hold Diagnostic Test (Pha) (Accu-Chek) 1 ea 02 XX Last administered on 08/05/16 01: 55; Admin Dose 1 EA; Start 08/01/16 at 02:00 Azithromycin (Zithromax) 250 mg DAILY PO Last administered on 08/04/16 08:50; Admin Dose 250 MG; Start 08/01/16 at 12:00 Methylprednisolone Sodium Succinate (Solu-Medrol) 40 mg Q6 IV Last administered on 08/05/16 12:31; Admin Dose 40 MG; Start 08/01/16 at 12:00 Epoetin Braden (Epogen (Esrd)) 6,000 units MoWeFr@17 SC Last administered on 08/04 17:55; Admin Dose 6,000 UNITS; Start 08/02/16 at 17:00 Miscellaneous Information 1 ea NOTE XX ; Start 08/02/16 at 12:30 Glucose (Glutose) 15 gm Q15M PRN PO DECREASED GLUCOSE; Start 08/02/16 at 12:30 Glucose (Glutose) 22.5 gm Q15M PRN PO DECREASED GLUCOSE; Start 08/02/16 at 12: 30 Dextrose (D50w Syringe) 25 ml Q15M PRN IV DECREASED GLUCOSE; Start 08/02/16 at 12:30 Dextrose (D50w Syringe) 50 ml Q15M PRN IV DECREASED GLUCOSE; Start 08/02/16 at 12:30 Glucagon (Glucagen) 1 mg Q15M PRN IM DECREASED GLUCOSE; Start 08/02/16 at 12:30 Glucose (Glutose) 15 gm Q15M PRN BUCCAL DECREASED GLUCOSE; Start 08/02/16 at 12 :30 Linagliptin (Tradjenta) 5 mg DAILY PO Last administered on 08/04/16 20:01; Admin Dose 5 MG; Start 08/04/16 at 20:00 LALA ORO Aug 05, 2016 15:51
--- NOTE | 2016-08-05 16:23 | RADRPT ---
PROCEDURE: RIGHT INTERNAL JUGULAR PERMA-CATH PLACEMENT CLINICAL INDICATION: Dialysis FLUOROSCOPY TIME: 0.1 minute TECHNIQUE: The procedure, its potential risks, benefits and alternatives were explained. Risks, including but n ot limited to pain, bleeding, infection, thrombosis, embolism and arrhythmia were discussed and und erstood. Following this discussion with the patient, informed consent was obtained. The right internal jugular vein was imaged with ultrasound and was shown to be compressible, with no evidence of thrombus. An image of this vein was obtained and saved to the PACS system. The neck and chest wall were scrubbed, draped and prepped in a sterile manner. The procedure was ca rried out under aseptic conditions. 2% lidocaine with epinephrine was utilized for local anesthesia . Following the standard prep, and under ultrasound guidance, the right internal jugular vein was punctured using anterior single wall micropuncture technique, and a micropuncture catheter was plac ed within it. A 0.35" guidewire was inserted through it, and over this a Najera dialysis catheter d elivery sheath was placed, with tip within the right atrium. A Najera dialysis catheter was then pl aced through the sheath, with the long arm of the catheter positioned laterally within the right atr ium and the short arm medially at the cavoatrial junction. Fluoroscopy was utilized to guide placeme nt of the catheter. An image of its final position was saved to the PACS system. The peel-away sheat h was then removed. The remaining portion of the catheter was then positioned on the skin, and the appropriate catheter exit site was thereby determined. Following this, the skin was anesthetized at the chosen catheter exit site, and incised with a disposable blade. A tract connecting the skin ex it site with the vein entry site was then anesthetized. Using a tunneling device and a fascial dila tor, the subcutaneous tract connecting the chest wall exit site with the vein entry site was dilated . The tunneling device was then used to pull the catheter through the subcutaneous tract. Fluorosc opy showed no evidence of kinking over the course of the catheter. The external portion of the cath eter was then cut, and the dual lumen hub was affixed to it in standard manner. The catheter was fl ushed, with good blood return. It was heparinized according to standard protocol. The vein entry s ite was then closed with Dermabond. The patient tolerated the procedure well. The procedure was done under monitored moderate sedation. I administered the first dose and oversaw subsequent monitoring by the nursing staff. COMPARISON: none FINDINGS: as above. IMPRESSION: Placement of PermaCath via the right internal jugular vein, as above. The catheter is ready for use. RPTAT: EE Physician Chai Date Time Electronically viewed and signed by Shaheen Reid Physician on 08/05/2016 16:23 RA/
--- NOTE | 2016-08-05 16:24 | RADRPT ---
PROCEDURE: ULTRASOUND-GUIDED VASCULAR ACCESS CLINICAL INDICATION: Perma-Cath placement TECHNIQUE: Informed consent was obtained from the patient after a discussion of the risks, benefit s, and alternatives of the procedure. Risks include, but are not limited to bleeding and infection. The right internal jugular vein was found to be patent and compressible with molina scale and power D oppler. A picture of it was saved to the PACS. 1% lidocaine was utilized for anesthesia. Under di rect ultrasound guidance, a 21-gauge needle was advanced into the right internal jugular vein. A wi re was advanced through the micropuncture needle. The micropuncture needle was then removed over th e wire and a 5-Ukrainian catheter was advanced over the wire. COMPARISON: None. FINDINGS: Patent and compressible right internal jugular vein. IMPRESSION: Ultrasound guided vascular access for placement of a Perma-Cath. RPTAT: EE Physician Chai Date Time Electronically viewed and signed by Physician Chai on 08/05/2016 16:24 /
--- NOTE | 2016-08-05 20:02 | CONS ---
Date/Time of Note Date/Time of Note DATE: 08/05/16 TIME: 20:01 Assessment/Plan Assessment/Plan Chief Complaint/Hosp Course IMPRESSION: 1. End-stage renal disease stage V. 2. Fluid overload.better 3. Pulmonary edema.better 4. Anemia of chronic kidney disease. 5. History of diabetes mellitus. 6. 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 7. AV fistula on the left upper extremity. plan continue hd d/w dr nguyen to make arrangement for out hd permacath placement done Problems: Consultation Date/Type/Reason Admit Date/Time Jul 31, 2016 at 19:59 Initial Consult Date 08/01/16 Type of Consultation: renal 24 HR Interval Summary Constitutional: no complaints Exam/Review of Systems Vital Signs Vitals Vital Signs Date Time Temp Pulse Resp B/P Pulse Ox O2 Delivery O2 Flow Rate FiO2 08/05/16 18:11 98.0 81 16 163/70 93 Nasal Cannula 2.0 Intake and Output 08/04/16 08/04/16 08/05/16 15:00 23:00 07:00 Intake Total 1120 ml 250 ml Output Total 400 ml 500 ml Balance 720 ml -250 ml Exam Constitutional: other (s/p cath placement) Neck: supple Respiratory: clear to auscultation Cardiovascular: regular rate and rhythm Gastrointestinal: soft Musculoskeletal: nl extremities to inspection Extremities: normal pulses Results Result Diagram: 08/05/16 0800 08/05/16 0800 Results 24 hrs Laboratory Tests Test 08/04/16 20:57 08/05/16 01:54 08/05/16 08:00 08/05/16 08:29 Bedside Glucose 222 H 225 H 228 H White Blood Count 12.5 #H Red Blood Count 4.02 L Hemoglobin 11.8 L Hematocrit 38.4 Mean Corpuscular Volume 95.5 Mean Corpuscular Hemoglobin 29.4 Mean Corpuscular Hemoglobin Concent 30.7 L Red Cell Distribution Width 13.9 Platelet Count 176 Mean Platelet Volume 10.5 H Neutrophils % 89.2 H Lymphocytes % 2.1 L Monocytes % 8.0 Eosinophils % 0.0 Basophils % 0.1 Nucleated Red Blood Cells % 2.0 H Neutrophils # 11.1 H Lymphocytes # 0.3 L Monocytes # 1.0 H Eosinophils # 0.0 Basophils # 0.0 Nucleated Red Blood Cells # 0.3 H Sodium Level 136 Potassium Level 3.6 Chloride Level 100 Carbon Dioxide Level 26 Anion Gap 14 Blood Urea Nitrogen 49 H Creatinine 4.07 #H Glucose Level 245 H Calcium Level 8.6 Test 08/05/16 12:17 08/05/16 12:32 08/05/16 18:07 Bedside Glucose 168 171 210 Medications Medications Current Medications Amlodipine Besylate (Norvasc) 5 mg DAILY PO Last administered on 08/05/16 08: 27; Admin Dose 5 MG; Start 08/01/16 at 09:00 Atorvastatin Calcium (Lipitor) 40 mg HS PO Last administered on 08/04/16 20:59 ; Admin Dose 40 MG; Start 08/01/16 at 21:00 Calcitriol (Rocaltrol) 0.25 mcg DAILY PO Last administered on 08/04/16 09:02; Admin Dose 0.25 MCG; Start 08/01/16 at 09:00 Calcium/Vitamin D (Oyster Shell/ Vit-D (500/200)) 1 tab BID PO Last administered on 08/04/16 20:59; Admin Dose 1 TAB; Start 08/01/16 at 09:00 Hydralazine HCl (Apresoline) 50 mg Q8 PO Last administered on 08/04/16 22:02; Admin Dose 50 MG; Start 08/01/16 at 06:00 Metoprolol Tartrate (Lopressor) 25 mg BID PO Last administered on 08/05/16 08: 27; Admin Dose 25 MG; Start 08/01/16 at 09:00 Paroxetine HCl (Paxil) 10 mg DAILY PO Last administered on 08/04/16 08:50; Admin Dose 10 MG; Start 08/01/16 at 09:00 Acetaminophen (Tylenol Tab) 650 mg Q4H PRN PO PAIN AND OR ELEVATED TEMP; Start 08/01/16 at 00:30 Hydralazine HCl (Apresoline) 20 mg Q6H PRN IV ELEVATED BLOOD PRESSURE; Start at 00:30 Guaifenesin/ Dextromethorphan (Robitussin Dm Liquid Cup) 10 ml Q4H PRN PO COUGH Last administered on 08/01/16 00:35; Admin Dose 10 ML; Start 08/01/16 at 00:30 Heparin Sodium (Porcine) (Heparin (5000 Units/0.5 ml)) 5,000 unit BID SC Last administered on 08/04/16 08:55; Admin Dose 5,000 UNIT; Start 08/01/16 at 09:00 ; Status Future Hold Diagnostic Test (Pha) (Accu-Chek) 1 ea 02 XX Last administered on 08/05/16 01: 55; Admin Dose 1 EA; Start 08/01/16 at 02:00 Azithromycin (Zithromax) 250 mg DAILY PO Last administered on 08/04/16 08:50; Admin Dose 250 MG; Start 08/01/16 at 12:00 Methylprednisolone Sodium Succinate (Solu-Medrol) 40 mg Q6 IV Last administered on 08/05/16 18:10; Admin Dose 40 MG; Start 08/01/16 at 12:00 Epoetin Braden (Epogen (Esrd)) 6,000 units MoWeFr@17 SC Last administered on 08/04 17:55; Admin Dose 6,000 UNITS; Start 08/02/16 at 17:00 Miscellaneous Information 1 ea NOTE XX ; Start 08/02/16 at 12:30 Glucose (Glutose) 15 gm Q15M PRN PO DECREASED GLUCOSE; Start 08/02/16 at 12:30 Glucose (Glutose) 22.5 gm Q15M PRN PO DECREASED GLUCOSE; Start 08/02/16 at 12: 30 Dextrose (D50w Syringe) 25 ml Q15M PRN IV DECREASED GLUCOSE; Start 08/02/16 at 12:30 Dextrose (D50w Syringe) 50 ml Q15M PRN IV DECREASED GLUCOSE; Start 08/02/16 at 12:30 Glucagon (Glucagen) 1 mg Q15M PRN IM DECREASED GLUCOSE; Start 08/02/16 at 12:30 Glucose (Glutose) 15 gm Q15M PRN BUCCAL DECREASED GLUCOSE; Start 08/02/16 at 12 :30 Linagliptin (Tradjenta) 5 mg DAILY PO Last administered on 08/04/16 20:01; Admin Dose 5 MG; Start 08/04/16 at 20:00 DAT OLSON MD Aug 05, 2016 20:02
[2016-08-05] MEDS: ATORVASTATIN 40 MG TAB PO SCH (21:11)
[2016-08-06] VITALS (16 sets, daily range): BP systolic 102–151; BP diastolic 55–67; PULSE 65–97; RESP 18–22
[2016-08-06] MEDS: ACCU-CHEK XX SCH (01:19)
[2016-08-06 05:44] LABS: ADD SCAN DIFF NO
[2016-08-06] MEDS: METHYLPREDNISOLONE 40 MG INJ IV SCH ×4 (05:49→23:35)
[2016-08-06] MEDS: FUROSEMIDE 40 MG INJ IV SCH ×2 (05:49→15:48)
[2016-08-06 05:53] LABS: POTASSIUM 4.3 mmol/L (3.5-5.1)
[2016-08-06 05:56] LABS: CALCIUM 8.2 mg/dl (8.4-10.2); CREATININE 5.45 mg/dl (0.44-1.00)
[2016-08-06 06:03] LABS: ABNORMAL IP MESSAGE 1; HEMATOCRIT 34.8 % (37.0-47.0); HEMOGLOBIN 10.8 g/dl (12.0-16.0); MEAN CORPUSCULAR HEMOGLOBIN 29.5 pg (29.0-33.0); MEAN CORPUSCULAR VOLUME 95.1 fl (82.0-101.0); MEAN PLATELET VOLUME 10.6 fl (7.4-10.4); PLATELET COUNT 143 10^3/UL (140-415); RED BLOOD COUNT 3.66 10^6/ul (4.20-5.40); RED CELL DISTRIBUTION WIDTH 14.2 % (11.5-14.5)
[2016-08-06] MEDS: ALBUTEROL/IPRATROPIUM (NEB) 3 ML AMP HHN PRN ×2 (06:08→15:36)
[2016-08-06] MEDS: INSULIN ASPART [NOVOLOG] 3 ML PEN SC SCH ×4 (08:38→21:58)
[2016-08-06] MEDS: CALCITRIOL 0.25 MCG CAP PO SCH (08:40)
[2016-08-06] MEDS: PAROXETINE 10 MG TAB PO SCH (08:40)
[2016-08-06] MEDS: AZITHROMYCIN 250 MG TAB PO SCH (08:40)
[2016-08-06] MEDS: LINAGLIPTIN 5 MG TABLET PO SCH (08:40)
[2016-08-06] MEDS: METOPROLOL 25 MG TAB PO SCH ×2 (08:41→21:52)
[2016-08-06] MEDS: AMLODIPINE 5 MG TAB PO SCH (08:41)
[2016-08-06] MEDS: CALCIUM/VITAMIN D (500/200) TAB PO SCH ×2 (08:41→21:52)
[2016-08-06 10:05] LABS: EOSINOPHILS # 0.1 10^3/ul (0.0-0.5); LYMPHOCYTES # 6.9 10^3/ul (0.8-2.9); MONOCYTE # 0.9 10^3/ul (0.3-0.9); NEUTROPHIL # 5.1 10^3/ul (1.6-7.5)
[2016-08-06] MEDS: NPH, HUMAN INSULIN ISOPHANE 3ML VIAL SC SCH ×4 (13:05→23:42)
--- NOTE | 2016-08-06 13:12 | CONS ---
Date/Time of Note Date/Time of Note DATE: 08/06/16 TIME: 13:08 Assessment/Plan Assessment/Plan Chief Complaint/Hosp Course 1. End-stage renal disease stage V. 2. Fluid overload.better 3. Pulmonary edema.better 4. Anemia of chronic kidney disease. 5. diabetes mellitus, uncontrolled 6. 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 7. AV fistula on the left upper extremity. Problems: Additional Assessment/Plan 1. plan continue hd tomorrow 1 st time via permacath 2. d/w dr Val nguyen to make arrangement for out hd 3. discharge planning per dr Flores with evaluation of necessity for oxygen at home Consultation Date/Type/Reason Admit Date/Time Jul 31, 2016 at 19:59 Initial Consult Date 08/01/16 Type of Consultation: renal Exam/Review of Systems Vital Signs Vitals Vital Signs Date Time Temp Pulse Resp B/P Pulse Ox O2 Delivery O2 Flow Rate FiO2 08/06/16 11:01 Nasal Cannula 2.5 08/06/16 08:35 98.0 69 19 147/62 89 Intake and Output 08/05/16 08/05/16 08/06/16 15:00 23:00 07:00 Intake Total 500 ml 350 ml Output Total 2500 ml Balance -2000 ml 350 ml Exam Constitutional: alert, oriented Head: normocephalic Eyes: nl conjunctiva ENMT: nl external ears & nose Respiratory: clear to auscultation Cardiovascular: nl pulses Gastrointestinal: soft Genitourinary - Female: other (permacath left chest wall) Musculoskeletal: range of motion (decreased) Results Result Diagram: 08/06/16 0415 08/06/16 0520 Results 24 hrs Laboratory Tests Test 08/05/16 18:07 08/05/16 20:29 08/06/16 01:13 08/06/16 04:15 Bedside Glucose 210 276 H 235 H White Blood Count 13.0 H Red Blood Count 3.66 L Hemoglobin 10.8 L Hematocrit 34.8 L Mean Corpuscular Volume 95.1 Mean Corpuscular Hemoglobin 29.5 Mean Corpuscular Hemoglobin Concent 31.0 L Red Cell Distribution Width 14.2 Platelet Count 143 Mean Platelet Volume 10.6 H Neutrophils % 39.0 Lymphocytes % 53.0 H Monocytes % 7.0 Eosinophils % 1.0 Neutrophils # 5.1 Lymphocytes # 6.9 H Monocytes # 0.9 Eosinophils # 0.1 Test 08/06/16 05:20 08/06/16 07:40 08/06/16 11:58 Sodium Level 134 L Potassium Level 4.3 Chloride Level 99 Carbon Dioxide Level 25 Anion Gap 14 Blood Urea Nitrogen 68 H Creatinine 5.45 H Glucose Level 282 H Calcium Level 8.2 L Bedside Glucose 319 H 421 *H Medications Medications Current Medications Amlodipine Besylate (Norvasc) 5 mg DAILY PO Last administered on 08/06/16 08: 41; Admin Dose 5 MG; Start 08/01/16 at 09:00 Atorvastatin Calcium (Lipitor) 40 mg HS PO Last administered on 08/05/16 21:11 ; Admin Dose 40 MG; Start 08/01/16 at 21:00 Calcitriol (Rocaltrol) 0.25 mcg DAILY PO Last administered on 08/06/16 08:40; Admin Dose 0.25 MCG; Start 08/01/16 at 09:00 Calcium/Vitamin D (Oyster Shell/ Vit-D (500/200)) 1 tab BID PO Last administered on 08/06/16 08:41; Admin Dose 1 TAB; Start 08/01/16 at 09:00 Hydralazine HCl (Apresoline) 50 mg Q8 PO Last administered on 08/06/16 05:49; Admin Dose 50 MG; Start 08/01/16 at 06:00 Metoprolol Tartrate (Lopressor) 25 mg BID PO Last administered on 08/06/16 08: 41; Admin Dose 25 MG; Start 08/01/16 at 09:00 Paroxetine HCl (Paxil) 10 mg DAILY PO Last administered on 08/06/16 08:40; Admin Dose 10 MG; Start 08/01/16 at 09:00 Acetaminophen (Tylenol Tab) 650 mg Q4H PRN PO PAIN AND OR ELEVATED TEMP; Start 08/01/16 at 00:30 Hydralazine HCl (Apresoline) 20 mg Q6H PRN IV ELEVATED BLOOD PRESSURE; Start at 00:30 Guaifenesin/ Dextromethorphan (Robitussin Dm Liquid Cup) 10 ml Q4H PRN PO COUGH Last administered on 08/01/16 00:35; Admin Dose 10 ML; Start 08/01/16 at 00:30 Heparin Sodium (Porcine) (Heparin (5000 Units/0.5 ml)) 5,000 unit BID SC Last administered on 08/04/16 08:55; Admin Dose 5,000 UNIT; Start 08/01/16 at 09:00 ; Status Future Hold Diagnostic Test (Pha) (Accu-Chek) 1 ea 02 XX Last administered on 08/06/16 01: 19; Admin Dose 1 EA; Start 08/01/16 at 02:00 Azithromycin (Zithromax) 250 mg DAILY PO Last administered on 08/06/16 08:40; Admin Dose 250 MG; Start 08/01/16 at 12:00 Methylprednisolone Sodium Succinate (Solu-Medrol) 40 mg Q6 IV Last administered on 08/06/16 05:49; Admin Dose 40 MG; Start 08/01/16 at 12:00 Epoetin Braden (Epogen (Esrd)) 6,000 units MoWeFr@17 SC Last administered on 08/04 17:55; Admin Dose 6,000 UNITS; Start 08/02/16 at 17:00 Miscellaneous Information 1 ea NOTE XX ; Start 08/02/16 at 12:30 Glucose (Glutose) 15 gm Q15M PRN PO DECREASED GLUCOSE; Start 08/02/16 at 12:30 Glucose (Glutose) 22.5 gm Q15M PRN PO DECREASED GLUCOSE; Start 08/02/16 at 12: 30 Dextrose (D50w Syringe) 25 ml Q15M PRN IV DECREASED GLUCOSE; Start 08/02/16 at 12:30 Dextrose (D50w Syringe) 50 ml Q15M PRN IV DECREASED GLUCOSE; Start 08/02/16 at 12:30 Glucagon (Glucagen) 1 mg Q15M PRN IM DECREASED GLUCOSE; Start 08/02/16 at 12:30 Glucose (Glutose) 15 gm Q15M PRN BUCCAL DECREASED GLUCOSE; Start 08/02/16 at 12 :30 Linagliptin (Tradjenta) 5 mg DAILY PO Last administered on 08/06/16 08:40; Admin Dose 5 MG; Start 08/04/16 at 20:00 Insulin Human NPH (Humulin N) 10 unit Q6 SC ; Start 08/06/16 at 12:30 LOUISE LAWRENCE Aug 06, 2016 13:12
--- NOTE | 2016-08-06 16:31 | RADRPT ---
PROCEDURE: XR Chest. CLINICAL INDICATION: Shortness of breath. TECHNIQUE: Single frontal view of the chest was obtained COMPARISON: Chest x-ray 07/31/2016 06:08 p.m. FINDINGS: The soft tissues are normal. There are degenerative osteophytes in the thoracic spine. The the hea rt is mildly enlarged. The cardiomediastinal silhouette and hilar structures are normal. The pulmon luzma vasculature is equilibrated. Atherosclerotic calcifications are present in the aortic arch. The re is a double bore dialysis catheter entering from a right internal jugular approach with its tip i n the right atrium. There are diffuse infiltrates in the right lung and in the medial aspect of the left lower lobe. These worsened when compared to the prior study. A right pleural effusion and sma ll left pleural effusion are suspected. IMPRESSION: 1. Cardiomegaly with inflammation the pulmonary vasculature and asymmetric pulmonary infiltrates gre ater in the right lung left. Asymmetric pulmonary edema with or without pneumonia might present thi s fashion. Fluid overload or failure should be considered. 2. Small pleural effusions are suspected. 3. Dialysis catheter entering from a right internal jugular approach with its tip in the right atri um. No pneumothorax is identified. RPTAT:AAJJ Physician Kaylyn Date Time Electronically viewed and signed by Physician Kaylyn on 08/06/2016 16:30 ROCHELLE/
--- NOTE | 2016-08-06 17:01 | PN ---
Date/Time of Note Date/Time of Note DATE: 08/06/16 TIME: 16:53 Assessment/Plan VTE Prophylaxis VTE Prophylaxis Intervention: SCD's Lines/Catheters IV Catheter Type [facility]from [facility] Permacath Urinary Cath still in place: No Assessment/Plan Chief Complaint/Hosp Course Assessment and plan: -Acute respiratory syndrome distress most likely secondary to pulmonary edema and fluid overload, discussed with Dr. Leon will patient will undergo urgent hemodialysis today, transferred to telemetry for close monitoring. - Acute bronchitis, continue Zithromax. - COPD exacerbation, continue breathing treatment. Dr. Natarajan is following in pulmonology consultation - End-stage renal disease stage V. Dr. Leon is following in nephrology consultation. Continue to hemodialysis via right femoral hemodialysis catheter. - Pulmonary edema. Continue diuresis. - Anemia of chronic kidney disease. Continue Epogen. - Diabetes mellitus type 2 hyperglycemia. Patient was started on steroids, will add NPH with each steroid dose, continue NovoLog per moderate algorithm sliding scale. - Hypertension, continue Norvasc. -Left upper extremity AV fistula, non-matured -Status post right hemodialysis non-tunneled catheter placement by Dr. Manning on 08/03. S/p R IJ tunneled hemodialysis catheter placement. Further recommendations based on clinical course. Plan of care discussed with Dr. Flores Problems: Subjective 24 Hr Interval Summary Free Text/Dictation Patient with severe bilateral rhonchi, complains of shortness of breath, denies chest pain remains awake alert, patient is currently on supplemental oxygen 4 L with saturation patient being 93%. Will order stat chest x-ray and twelve-lead EKG. discussed with Dr. Leon. Patient will have urgent hemodialysis today to remove fluids, transferred patient to telemetry floor. Dr. Stuart supervisor painting is also notified, will obtain cardiac enzymes to rule out acute coronary syndrome. Patient is status post right chest permanent hemodialysis catheter placement. Will obtain chest x-ray stat. Exam/Review of Systems Vital Signs Vitals Vital Signs Date Time Temp Pulse Resp B/P Pulse Ox O2 Delivery O2 Flow Rate FiO2 08/06/16 16:18 97 20 137/66 91 Nasal Cannula 4.0 08/06/16 08:35 98.0 Intake and Output 08/05/16 08/05/16 08/06/16 15:00 23:00 07:00 Intake Total 500 ml 350 ml Output Total 2500 ml Balance -2000 ml 350 ml Exam Constitutional: alert, oriented Psych: no complaints Head: atraumatic, normocephalic Eyes: nl conjunctiva ENMT: nl external ears & nose, nl lips & teeth Neck: non-tender, supple Respiratory: Rhonchi bilaterally Cardiovascular: nl pulses, regular rate and rhythm Gastrointestinal: non-tender, soft Musculoskeletal: nl extremities to inspection Extremities: normal pulses 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: CONFERENCE PLANNING MANAGER II-XII intact Additional Comments Left upper extremities with AV fistula with palpable thrill and audible bruit Right IJ permacath Results Result Diagram: 08/06/16 0415 08/06/16 0520 Results 24 hrs Laboratory Tests Test 08/05/16 18:07 08/05/16 20:29 08/06/16 01:13 08/06/16 04:15 Bedside Glucose 210 276 H 235 H White Blood Count 13.0 H Red Blood Count 3.66 L Hemoglobin 10.8 L Hematocrit 34.8 L Mean Corpuscular Volume 95.1 Mean Corpuscular Hemoglobin 29.5 Mean Corpuscular Hemoglobin Concent 31.0 L Red Cell Distribution Width 14.2 Platelet Count 143 Mean Platelet Volume 10.6 H Neutrophils % 39.0 Lymphocytes % 53.0 H Monocytes % 7.0 Eosinophils % 1.0 Neutrophils # 5.1 Lymphocytes # 6.9 H Monocytes # 0.9 Eosinophils # 0.1 Test 08/06/16 05:20 08/06/16 07:40 08/06/16 11:58 08/06/16 15:42 Sodium Level 134 L Potassium Level 4.3 Chloride Level 99 Carbon Dioxide Level 25 Anion Gap 14 Blood Urea Nitrogen 68 H Creatinine 5.45 H Glucose Level 282 H Calcium Level 8.2 L Bedside Glucose 319 H 421 *H 468 *H Medications Medications Current Medications Amlodipine Besylate (Norvasc) 5 mg DAILY PO Last administered on 08/06/16 08: 41; Admin Dose 5 MG; Start 08/01/16 at 09:00 Atorvastatin Calcium (Lipitor) 40 mg HS PO Last administered on 08/05/16 21:11 ; Admin Dose 40 MG; Start 08/01/16 at 21:00 Calcitriol (Rocaltrol) 0.25 mcg DAILY PO Last administered on 08/06/16 08:40; Admin Dose 0.25 MCG; Start 08/01/16 at 09:00 Calcium/Vitamin D (Oyster Shell/ Vit-D (500/200)) 1 tab BID PO Last administered on 08/06/16 08:41; Admin Dose 1 TAB; Start 08/01/16 at 09:00 Hydralazine HCl (Apresoline) 50 mg Q8 PO Last administered on 08/06/16 13:15; Admin Dose 50 MG; Start 08/01/16 at 06:00 Metoprolol Tartrate (Lopressor) 25 mg BID PO Last administered on 08/06/16 08: 41; Admin Dose 25 MG; Start 08/01/16 at 09:00 Paroxetine HCl (Paxil) 10 mg DAILY PO Last administered on 08/06/16 08:40; Admin Dose 10 MG; Start 08/01/16 at 09:00 Acetaminophen (Tylenol Tab) 650 mg Q4H PRN PO PAIN AND OR ELEVATED TEMP; Start 08/01/16 at 00:30 Hydralazine HCl (Apresoline) 20 mg Q6H PRN IV ELEVATED BLOOD PRESSURE; Start at 00:30 Guaifenesin/ Dextromethorphan (Robitussin Dm Liquid Cup) 10 ml Q4H PRN PO COUGH Last administered on 08/01/16 00:35; Admin Dose 10 ML; Start 08/01/16 at 00:30 Heparin Sodium (Porcine) (Heparin (5000 Units/0.5 ml)) 5,000 unit BID SC Last administered on 08/04/16 08:55; Admin Dose 5,000 UNIT; Start 08/01/16 at 09:00 ; Status Future Hold Diagnostic Test (Pha) (Accu-Chek) 1 ea 02 XX Last administered on 08/06/16 01: 19; Admin Dose 1 EA; Start 08/01/16 at 02:00 Azithromycin (Zithromax) 250 mg DAILY PO Last administered on 08/06/16 08:40; Admin Dose 250 MG; Start 08/01/16 at 12:00 Methylprednisolone Sodium Succinate (Solu-Medrol) 40 mg Q6 IV Last administered on 08/06/16 15:48; Admin Dose 40 MG; Start 08/01/16 at 12:00 Epoetin Braden (Epogen (Esrd)) 6,000 units MoWeFr@17 SC Last administered on 08/04 17:55; Admin Dose 6,000 UNITS; Start 08/02/16 at 17:00 Miscellaneous Information 1 ea NOTE XX ; Start 08/02/16 at 12:30 Glucose (Glutose) 15 gm Q15M PRN PO DECREASED GLUCOSE; Start 08/02/16 at 12:30 Glucose (Glutose) 22.5 gm Q15M PRN PO DECREASED GLUCOSE; Start 08/02/16 at 12: 30 Dextrose (D50w Syringe) 25 ml Q15M PRN IV DECREASED GLUCOSE; Start 08/02/16 at 12:30 Dextrose (D50w Syringe) 50 ml Q15M PRN IV DECREASED GLUCOSE; Start 08/02/16 at 12:30 Glucagon (Glucagen) 1 mg Q15M PRN IM DECREASED GLUCOSE; Start 08/02/16 at 12:30 Glucose (Glutose) 15 gm Q15M PRN BUCCAL DECREASED GLUCOSE; Start 08/02/16 at 12 :30 Linagliptin (Tradjenta) 5 mg DAILY PO Last administered on 08/06/16 08:40; Admin Dose 5 MG; Start 08/04/16 at 20:00 Insulin Human NPH (Humulin N) 10 unit Q6 SC Last administered on 08/06/16 15: 52; Admin Dose 10 UNIT; Start 08/06/16 at 12:30 BRYANT PERALTA Aug 06, 2016 17:01
[2016-08-06] MEDS: EPOETIN 3000 UNITS/1 ML INJ (ESRD) SC SCH (17:25)
--- NOTE | 2016-08-06 17:41 | CONS ---
Date/Time of Note Date/Time of Note DATE: 08/06/16 TIME: 17:26 Assessment/Plan Assessment/Plan Problems: (1) Type 2 diabetes mellitus with hyperglycemia Status: Acute Comment: Uncertain as to why pt. who has been stable on her steroid dosage for the last 4 days would suddenly develop significant worsening of her hyperglycemia. Will increase her scheduled NPH w/ her solu-medrol from 10 q6 to 20 q6 and follow. Cont. linagliptin which seems to be effective by itself to manage her glucose when pt. not on glucocorticoids. Will follow with you. Consultation Date/Type/Reason Admit Date/Time Jul 31, 2016 at 19:59 Date of Consultation: Aug 06, 2016 Type of Consultation: Endocrinology Reason for Consultation T2DM OOC on solu-medrol Referring Provider: BRYANT PERALTA Hx of Present Illness 85 y/o H F w/ h/o T2DM, HTN, hyperlipidemia, diastolic CHF, depression/anxiety, progressively worsening renal function who was in [facility] until 1 week ago when she developed worsening SOB at home. Pt. was under a medical plan to initiate HD in a few weeks but had reached a point where she was dyspneic at rest and orthopneic as well. Family felt they could not wait for HD and decided to bring to ER. Pt. clearly in respiratory distress so admitted. ECHO indicated diastolic CHF. Pulmonary felt there was an element of COPD so placed pt. on solu-medrol 40 mg IV q6. Since that time BG has been relatively elevated, although not severely so. This am, BG > 300 and then > 400 mg/dL. Primary team ordered NPH 10 q6 and endo consulted. Constitutional: no complaints Eyes: no complaints ENT: no complaints Respiratory: cough, shortness of breath Cardiovascular: orthopenea Gastrointestinal: no complaints Genitourinary: no complaints Musculoskeletal: no complaints Neurologic: no complaints Past Medical History Medical History: congestive heart failure, coronary artery disease, diabetes, high cholesterol, hypertension, renal disease, other (depression, COPD) Past Surgical History Past Surgical Hx: other (pancreas stent placement, fistula placement) Family History Significant Family History: cancer (cholangioCA in mother, primary unknown in daughter), diabetes (in sister) Social History b. 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, 1 Alcohol Use: rarely Smoking Status: Former smoker (1 ppd x 25 y) Drug Use: none Exam/Review of Systems Vital Signs Vitals VS - Last 72 Hours, by Label Date Time Temp Pulse Resp B/P Pulse Ox O2 Delivery O2 Flow Rate FiO2 08/06/16 16:54 Nasal Cannula 4.0 08/06/16 16:18 97 20 137/66 91 Nasal Cannula 4.0 08/06/16 15:40 90 22 149/67 85 Nasal Cannula 3.0 08/06/16 15:36 82 28 92 Nasal Cannula 3.0 08/06/16 15:36 3.0 08/06/16 13:16 95 20 151/65 90 Nasal Cannula 08/06/16 11:01 Nasal Cannula 2.5 08/06/16 08:50 Nasal Cannula 2.0 08/06/16 08:35 98.0 69 19 147/62 89 08/06/16 06:08 84 24 93 Nasal Cannula 3.0 08/06/16 02:08 3.0 08/05/16 22:09 93 3.0 08/05/16 22:06 78 24 93 Nasal Cannula 3.0 08/05/16 20:15 98.2 82 19 153/67 92 08/05/16 20:10 Nasal Cannula 2.0 08/05/16 18:11 98.0 81 16 163/70 93 Nasal Cannula 2.0 08/05/16 16:35 98.3 93 16 152/64 94 Nasal Cannula 2.0 08/05/16 15:40 76 16 126/63 93 Nasal Cannula 4.0 08/05/16 15:35 77 17 122/63 92 Nasal Cannula 4.0 08/05/16 15:30 77 18 119/63 92 Nasal Cannula 4.0 08/05/16 15:25 79 18 129/64 95 Nasal Cannula 4.0 08/05/16 15:20 78 24 145/69 95 Nasal Cannula 4.0 08/05/16 15:15 83 20 144/64 96 Nasal Cannula 4.0 08/05/16 15:10 82 17 140/71 96 Nasal Cannula 4.0 08/05/16 15:05 99.1 81 25 145/68 96 Nasal Cannula 4.0 08/05/16 14:55 Nasal Cannula 2 08/05/16 10:40 Nasal Cannula 2.0 08/05/16 08:09 98.0 72 19 141/62 98 08/05/16 07:45 71 08/05/16 07:45 71 20 08/05/16 07:15 70 08/05/16 06:45 71 08/05/16 06:15 73 08/05/16 05:45 71 08/05/16 05:15 73 08/05/16 04:45 77 08/05/16 04:45 77 19 08/05/16 00:18 73 20 96 Nasal Cannula 2.0 08/05/16 00:18 96 2.0 08/04/16 23:56 2.0 08/04/16 20:39 98.3 75 18 136/66 98 08/04/16 20:10 Nasal Cannula 2.0 08/04/16 09:00 Nasal Cannula 2.0 08/04/16 07:00 98.4 75 20 159/75 96 08/03/16 21:23 3.0 08/03/16 20:20 Nasal Cannula 2.0 08/03/16 20:02 98.2 77 18 164/74 96 Vital Signs Date Time Temp Pulse Resp B/P Pulse Ox O2 Delivery O2 Flow Rate FiO2 08/06/16 16:54 Nasal Cannula 4.0 08/06/16 16:18 97 20 137/66 91 08/06/16 08:35 98.0 Intake and Output 08/05/16 08/05/16 08/06/16 15:00 23:00 07:00 Intake Total 500 ml 350 ml Output Total 2500 ml Balance -2000 ml 350 ml Exam Constitutional: alert, frail, oriented Psych: nl mood/affect, no complaints Eyes: EOMI, PERRL, nl conjunctiva, nl lids, nl sclera ENMT: mucosa pink and moist, nl external ears & nose Neck: non-tender, supple, No bruits, No masses, No thyromegaly Respiratory: congested cough, crackles/rales (coarse), intercostal retraction, labored breathing Cardiovascular: nl pulses, regular rate and rhythm, No edema, No murmurs/extra sounds, No rub Gastrointestinal: bowel sounds, nl liver, spleen, non-tender, soft, No mass, No rebound or guarding Musculoskeletal: nl extremities to inspection Extremities: normal pulses, No clubbing, No cyanosis, No edema 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: COMPLAINT ADJUSTER II-XII intact, nl mental status, nl speech, nl strength Additional Comments Bedside Glucose - 72 Hours Test 08/03/16 20:02 08/04/16 01:57 08/04/16 07:51 08/04/16 11:56 Bedside Glucose 238mg/dL (70-220) H 177mg/dL (70-220) 211mg/dL (70-220) 328mg/dL (70-220) H Test 08/04/16 17:52 08/04/16 20:57 08/05/16 01:54 08/05/16 08:29 Bedside Glucose 310mg/dL (70-220) H 222mg/dL (70-220) H 225mg/dL (70-220) H 228mg/dL (70-220) H Test 08/05/16 12:17 08/05/16 12:32 08/05/16 18:07 08/05/16 20:29 Bedside Glucose 168mg/dL (70-220) 171mg/dL (70-220) 210mg/dL (70-220) 276mg/dL (70-220) H Test 08/06/16 01:13 08/06/16 07:40 08/06/16 11:58 08/06/16 15:42 Bedside Glucose 235mg/dL (70-220) H 319mg/dL (70-220) H 421mg/dL (70-220) *H 468mg/dL (70-220) *H Results Result Diagram: 08/06/16 0415 08/06/16 0520 Results 24 hrs Laboratory Tests Test 08/05/16 18:07 08/05/16 20:29 08/06/16 01:13 08/06/16 04:15 Bedside Glucose 210 276 H 235 H White Blood Count 13.0 H Red Blood Count 3.66 L Hemoglobin 10.8 L Hematocrit 34.8 L Mean Corpuscular Volume 95.1 Mean Corpuscular Hemoglobin 29.5 Mean Corpuscular Hemoglobin Concent 31.0 L Red Cell Distribution Width 14.2 Platelet Count 143 Mean Platelet Volume 10.6 H Neutrophils % 39.0 Lymphocytes % 53.0 H Monocytes % 7.0 Eosinophils % 1.0 Neutrophils # 5.1 Lymphocytes # 6.9 H Monocytes # 0.9 Eosinophils # 0.1 Test 08/06/16 05:20 08/06/16 07:40 08/06/16 11:58 08/06/16 15:42 Sodium Level 134 L Potassium Level 4.3 Chloride Level 99 Carbon Dioxide Level 25 Anion Gap 14 Blood Urea Nitrogen 68 H Creatinine 5.45 H Glucose Level 282 H Calcium Level 8.2 L Bedside Glucose 319 H 421 *H 468 *H Test 08/06/16 16:05 Troponin I 0.021 Medications Medications Current Medications Amlodipine Besylate (Norvasc) 5 mg DAILY PO Last administered on 08/06/16 08: 41; Admin Dose 5 MG; Start 08/01/16 at 09:00 Atorvastatin Calcium (Lipitor) 40 mg HS PO Last administered on 08/05/16 21:11 ; Admin Dose 40 MG; Start 08/01/16 at 21:00 Calcitriol (Rocaltrol) 0.25 mcg DAILY PO Last administered on 08/06/16 08:40; Admin Dose 0.25 MCG; Start 08/01/16 at 09:00 Calcium/Vitamin D (Oyster Shell/ Vit-D (500/200)) 1 tab BID PO Last administered on 08/06/16 08:41; Admin Dose 1 TAB; Start 08/01/16 at 09:00 Hydralazine HCl (Apresoline) 50 mg Q8 PO Last administered on 08/06/16 13:15; Admin Dose 50 MG; Start 08/01/16 at 06:00 Metoprolol Tartrate (Lopressor) 25 mg BID PO Last administered on 08/06/16 08: 41; Admin Dose 25 MG; Start 08/01/16 at 09:00 Paroxetine HCl (Paxil) 10 mg DAILY PO Last administered on 08/06/16 08:40; Admin Dose 10 MG; Start 08/01/16 at 09:00 Acetaminophen (Tylenol Tab) 650 mg Q4H PRN PO PAIN AND OR ELEVATED TEMP; Start 08/01/16 at 00:30 Hydralazine HCl (Apresoline) 20 mg Q6H PRN IV ELEVATED BLOOD PRESSURE; Start at 00:30 Guaifenesin/ Dextromethorphan (Robitussin Dm Liquid Cup) 10 ml Q4H PRN PO COUGH Last administered on 08/01/16 00:35; Admin Dose 10 ML; Start 08/01/16 at 00:30 Heparin Sodium (Porcine) (Heparin (5000 Units/0.5 ml)) 5,000 unit BID SC Last administered on 08/04/16 08:55; Admin Dose 5,000 UNIT; Start 08/01/16 at 09:00 ; Status Future Hold Diagnostic Test (Pha) (Accu-Chek) 1 ea 02 XX Last administered on 08/06/16 01: 19; Admin Dose 1 EA; Start 08/01/16 at 02:00 Methylprednisolone Sodium Succinate (Solu-Medrol) 40 mg Q6 IV Last administered on 08/06/16 15:48; Admin Dose 40 MG; Start 08/01/16 at 12:00 Epoetin Braden (Epogen (Esrd)) 6,000 units MoWeFr@17 SC Last administered on 08/04 17:55; Admin Dose 6,000 UNITS; Start 08/02/16 at 17:00 Miscellaneous Information 1 ea NOTE XX ; Start 08/02/16 at 12:30 Glucose (Glutose) 15 gm Q15M PRN PO DECREASED GLUCOSE; Start 08/02/16 at 12:30 Glucose (Glutose) 22.5 gm Q15M PRN PO DECREASED GLUCOSE; Start 08/02/16 at 12: 30 Dextrose (D50w Syringe) 25 ml Q15M PRN IV DECREASED GLUCOSE; Start 08/02/16 at 12:30 Dextrose (D50w Syringe) 50 ml Q15M PRN IV DECREASED GLUCOSE; Start 08/02/16 at 12:30 Glucagon (Glucagen) 1 mg Q15M PRN IM DECREASED GLUCOSE; Start 08/02/16 at 12:30 Glucose (Glutose) 15 gm Q15M PRN BUCCAL DECREASED GLUCOSE; Start 08/02/16 at 12 :30 Linagliptin (Tradjenta) 5 mg DAILY PO Last administered on 08/06/16 08:40; Admin Dose 5 MG; Start 08/04/16 at 20:00 Insulin Human NPH 20 unit 20 unit Q6 SC ; Start 08/06/16 at 18:00 Cefepime HCl (Maxipime 1gm/50 ml (Pmx)) 50 ml @ 100 mls/hr Q12 IVPB ; Start at 21:00 JUDAH NOE MD Aug 06, 2016 17:37
--- NOTE | 2016-08-06 18:10 | CONS ---
Date/Time of Note Date/Time of Note DATE: 08/06/16 TIME: 18:08 Consult Date/Type/Reason Admit Date/Time Jul 31, 2016 at 19:59 Initial Consult Date 08/06/16 Type of Consultation: Cardiology Ordering Provider: BRYANT PERLATA Objective Vital Signs Date Time Temp Pulse Resp B/P Pulse Ox O2 Delivery O2 Flow Rate FiO2 08/06/16 16:54 Nasal Cannula 4.0 08/06/16 16:18 97 20 137/66 91 08/06/16 08:35 98.0 Intake and Output 08/05/16 08/05/16 08/06/16 15:00 23:00 07:00 Intake Total 500 ml 350 ml Output Total 2500 ml Balance -2000 ml 350 ml Results/Medications Result Diagram: 08/06/16 0415 08/06/16 0520 Results 24 hrs Laboratory Tests Test 08/05/16 20:29 08/06/16 01:13 08/06/16 04:15 08/06/16 05:20 Bedside Glucose 276 H 235 H White Blood Count 13.0 H Red Blood Count 3.66 L Hemoglobin 10.8 L Hematocrit 34.8 L Mean Corpuscular Volume 95.1 Mean Corpuscular Hemoglobin 29.5 Mean Corpuscular Hemoglobin Concent 31.0 L Red Cell Distribution Width 14.2 Platelet Count 143 Mean Platelet Volume 10.6 H Neutrophils % 39.0 Lymphocytes % 53.0 H Monocytes % 7.0 Eosinophils % 1.0 Neutrophils # 5.1 Lymphocytes # 6.9 H Monocytes # 0.9 Eosinophils # 0.1 Sodium Level 134 L Potassium Level 4.3 Chloride Level 99 Carbon Dioxide Level 25 Anion Gap 14 Blood Urea Nitrogen 68 H Creatinine 5.45 H Glucose Level 282 H Calcium Level 8.2 L Test 08/06/16 07:40 08/06/16 11:58 08/06/16 15:42 08/06/16 16:05 Bedside Glucose 319 H 421 *H 468 *H Troponin I 0.021 Test 08/06/16 17:45 Bedside Glucose 430 *H Medications Current Medications Amlodipine Besylate (Norvasc) 5 mg DAILY PO Last administered on 08/06/16 08: 41; Admin Dose 5 MG; Start 08/01/16 at 09:00 Atorvastatin Calcium (Lipitor) 40 mg HS PO Last administered on 08/05/16 21:11 ; Admin Dose 40 MG; Start 08/01/16 at 21:00 Calcitriol (Rocaltrol) 0.25 mcg DAILY PO Last administered on 08/06/16 08:40; Admin Dose 0.25 MCG; Start 08/01/16 at 09:00 Calcium/Vitamin D (Oyster Shell/ Vit-D (500/200)) 1 tab BID PO Last administered on 08/06/16 08:41; Admin Dose 1 TAB; Start 08/01/16 at 09:00 Hydralazine HCl (Apresoline) 50 mg Q8 PO Last administered on 08/06/16 13:15; Admin Dose 50 MG; Start 08/01/16 at 06:00 Metoprolol Tartrate (Lopressor) 25 mg BID PO Last administered on 08/06/16 08: 41; Admin Dose 25 MG; Start 08/01/16 at 09:00 Paroxetine HCl (Paxil) 10 mg DAILY PO Last administered on 08/06/16 08:40; Admin Dose 10 MG; Start 08/01/16 at 09:00 Acetaminophen (Tylenol Tab) 650 mg Q4H PRN PO PAIN AND OR ELEVATED TEMP; Start 08/01/16 at 00:30 Hydralazine HCl (Apresoline) 20 mg Q6H PRN IV ELEVATED BLOOD PRESSURE; Start at 00:30 Guaifenesin/ Dextromethorphan (Robitussin Dm Liquid Cup) 10 ml Q4H PRN PO COUGH Last administered on 08/01/16 00:35; Admin Dose 10 ML; Start 08/01/16 at 00:30 Heparin Sodium (Porcine) (Heparin (5000 Units/0.5 ml)) 5,000 unit BID SC Last administered on 08/04/16 08:55; Admin Dose 5,000 UNIT; Start 08/01/16 at 09:00 ; Status Future Hold Diagnostic Test (Pha) (Accu-Chek) 1 ea 02 XX Last administered on 08/06/16 01: 19; Admin Dose 1 EA; Start 08/01/16 at 02:00 Methylprednisolone Sodium Succinate (Solu-Medrol) 40 mg Q6 IV Last administered on 08/06/16 15:48; Admin Dose 40 MG; Start 08/01/16 at 12:00 Epoetin Braden (Epogen (Esrd)) 6,000 units MoWeFr@17 SC Last administered on 08/06 17:25; Admin Dose 6,000 UNITS; Start 08/02/16 at 17:00 Miscellaneous Information 1 ea NOTE XX ; Start 08/02/16 at 12:30 Glucose (Glutose) 15 gm Q15M PRN PO DECREASED GLUCOSE; Start 08/02/16 at 12:30 Glucose (Glutose) 22.5 gm Q15M PRN PO DECREASED GLUCOSE; Start 08/02/16 at 12: 30 Dextrose (D50w Syringe) 25 ml Q15M PRN IV DECREASED GLUCOSE; Start 08/02/16 at 12:30 Dextrose (D50w Syringe) 50 ml Q15M PRN IV DECREASED GLUCOSE; Start 08/02/16 at 12:30 Glucagon (Glucagen) 1 mg Q15M PRN IM DECREASED GLUCOSE; Start 08/02/16 at 12:30 Glucose (Glutose) 15 gm Q15M PRN BUCCAL DECREASED GLUCOSE; Start 08/02/16 at 12 :30 Linagliptin (Tradjenta) 5 mg DAILY PO Last administered on 08/06/16 08:40; Admin Dose 5 MG; Start 08/04/16 at 20:00 Insulin Human NPH 20 unit 20 unit Q6 SC Last administered on 08/06/16 18:02; Admin Dose 20 UNIT; Start 08/06/16 at 18:00 Cefepime HCl (Maxipime 1gm/50 ml (Pmx)) 50 ml @ 100 mls/hr Q12 IVPB ; Start at 21:00 Assessment/Plan Chief Complaint/Hosp Course Patient is 85 year old F with PMH of HTN, HLD, CKD now presentezd with SOB and ESRD was started on HD. She already has been planning for Stage IV CKD and had fistula done already. Pt does have some SOB. significant Leg edema. Likely realted to CKD and Diastolic HF. LVEF is nl. Problems: Additional Assessment/Plan Pt with new onset HD Pt may have Renal artery stenosis they way she went in to pulm edema today I will get CT chest as well as renal artery duplex. if there is stenosis I may take her for renal artery stenting in pt or out pt. Tx to tele. continue medical mx trop neg and EKG non ischemic sinus, less likely cardiac etiology. will /SIERRA Don MD Aug 06, 2016 18:10
[2016-08-06] MEDS: ALBUTEROL/IPRATROPIUM (NEB) 3 ML AMP HHN SCH (20:00)
--- NOTE | 2016-08-06 21:28 | RADRPT ---
PROCEDURE: CT Chest without contrast. CLINICAL INDICATION: Shortness of breath, cough, and pulmonary edema. TECHNIQUE: Helical axial sections were obtained through the chest without intravenous contrast enh ancement. Coronal and sagittal reformatted images were obtained from the axial source images. Total exam DLP is 557.08 mGy-cm. CTDIvol is 15.46 mGy. One or more of the following dose reduction humble hniques were used: Automated exposure control, adjustment of the mA and/or kV according to patient s ize, use of iterative reconstruction technique. COMPARISON: Chest radiograph done earlier the same day. FINDINGS: There is a tunneled right internal jugular vein dialysis catheter with the tip in the cavoatrial nehal ction region. There is extensive air space disease throughout the right upper lobe posteriorly, rig ht middle lobe posteriorly, and throughout most of the right lower lobe consistent with pneumonia. There is moderate atelectasis at the left lung base. Mild air space disease is present in the left upper lobe posteriorly consistent with pneumonia. There is no pulmonary nodule or mass lesion. There is no mediastinal or hilar lymphadenopathy or mass. There is no axillary, supraclavicular, or internal mammary lymphadenopathy. The thoracic aorta is not dilated. There is calcification in the aorta consistent with atherosclero sis. The heart size is normal. There is coronary artery calcification. There are moderate bilateral pleural effusions. There is no pericardial effusion. Images through the upper abdomen demonstrate a common bile duct stent in satisfactory position. Mul tiple surgical clips are present from previous cholecystectomy. The visualized portions of the live r, spleen, and adrenals are otherwise normal. There are degenerative changes of both glenohumeral joints. There has been previous vertebroplasty at the L1 level. There are old compression fractures of T6 and T11 vertebrae. IMPRESSION: 1. Tunneled right internal jugular vein dialysis catheter in satisfactory position. 2. Extensive right-sided pneumonia. 3. Moderate atelectasis at the left lung base. 4. Mild pneumonia in the left upper lobe posteriorly. 5. Atherosclerosis. 6. Coronary artery calcification. 7. Moderate bilateral pleural effusions. 8. Common bile duct stent in satisfactory position. 9. Previous cholecystectomy. 10. Degenerative changes of the glenohumeral joints. 11. Previous vertebroplasty at the L1 level. 12. Old compression fractures of T6 and T11 vertebrae. RPTAT: QQ .Salazar Cruz MD, MD Date Time Electronically viewed and signed by .Salazar Cruz MD, MD on 08/06/2016 21:27 .R/
[2016-08-06] MEDS: ATORVASTATIN 40 MG TAB PO SCH (21:51)
[2016-08-06] MEDS: CEFEPIME 1GM/50 ML (PMX) 50 ML IVPB SCH (23:25)
[2016-08-07] VITALS (20 sets, daily range): BP systolic 88–139; BP diastolic 48–78; PULSE 76–98; RESP 18–20
[2016-08-07] MEDS: ACCU-CHEK XX SCH (02:54)
[2016-08-07] MEDS: ALBUTEROL/IPRATROPIUM (NEB) 3 ML AMP HHN SCH ×4 (02:58→19:38)
[2016-08-07] MEDS: FUROSEMIDE 40 MG INJ IV SCH ×2 (05:38→17:58)
[2016-08-07] MEDS: METHYLPREDNISOLONE 40 MG INJ IV SCH ×3 (05:41→22:02)
[2016-08-07] MEDS: NPH, HUMAN INSULIN ISOPHANE 3ML VIAL SC SCH ×3 (05:57→22:06)
[2016-08-07 07:11] LABS: ADD SCAN DIFF NO
[2016-08-07 07:20] LABS: ABNORMAL IP MESSAGE 1; BASOPHIL # 0.1 10^3/ul (0.0-0.1); BASOPHILS % 0.6 % (0.0-2.0); HEMATOCRIT 33.1 % (37.0-47.0); HEMOGLOBIN 10.6 g/dl (12.0-16.0); LYMPHOCYTES # 0.1 10^3/ul (0.8-2.9); LYMPHOCYTES % 0.8 % (15.0-51.0); MEAN CORPUSCULAR HEMOGLOBIN 29.6 pg (29.0-33.0); MEAN CORPUSCULAR VOLUME 92.5 fl (82.0-101.0); MEAN PLATELET VOLUME 11.1 fl (7.4-10.4); MONOCYTE # 0.4 10^3/ul (0.3-0.9); MONOCYTES % 2.6 % (0.0-11.0); NUCLEATED RED BLOOD CELLS # 0.2 10^3/ul (0.0-0.0); NUCLEATED RED BLOOD CELLS% 1.5 /100WBC (0.0-0.0); PLATELET COUNT 104 10^3/UL (140-415); RED BLOOD COUNT 3.58 10^6/ul (4.20-5.40)
[2016-08-07 07:25] LABS: NEUTROPHILS % 92.9 % (39.0-77.0)
--- NOTE | 2016-08-07 07:36 | CONS ---
Date/Time of Note Date/Time of Note DATE: 08/07/16 TIME: 07:34 Consult Date/Type/Reason Admit Date/Time Jul 31, 2016 at 19:59 Initial Consult Date 08/06/16 Type of Consultation: Cardiology Ordering Provider: BRYANT PERALTA Objective Vital Signs Date Time Temp Pulse Resp B/P Pulse Ox O2 Delivery O2 Flow Rate FiO2 08/07/16 07:14 98.1 94 20 130/58 95 08/07/16 02:59 4.0 08/07/16 02:59 Nasal Cannula Intake and Output 08/06/16 08/06/16 08/07/16 15:00 23:00 07:00 Intake Total 400 ml 550 ml Output Total 2400 ml Balance -2000 ml 550 ml Results/Medications Result Diagram: 08/07/16 0617 08/06/16 0520 Results 24 hrs Laboratory Tests Test 08/06/16 07:40 08/06/16 11:58 08/06/16 15:42 08/06/16 16:05 Bedside Glucose 319 H 421 *H 468 *H Troponin I 0.021 Test 08/06/16 17:45 08/06/16 19:40 08/06/16 21:55 08/06/16 23:34 Bedside Glucose 430 *H 211 221 H Troponin I 0.025 Test 08/07/16 02:47 08/07/16 05:47 08/07/16 06:17 Bedside Glucose 162 159 White Blood Count 14.0 H Red Blood Count 3.58 L Hemoglobin 10.6 L Hematocrit 33.1 L Mean Corpuscular Volume 92.5 Mean Corpuscular Hemoglobin 29.6 Mean Corpuscular Hemoglobin Concent 32.0 Red Cell Distribution Width 14.0 Platelet Count 104 #L Mean Platelet Volume 11.1 H Neutrophils % 92.9 H Lymphocytes % 0.8 L Monocytes % 2.6 Eosinophils % 0.0 Basophils % 0.6 Nucleated Red Blood Cells % 1.5 H Neutrophils # 13.0 H Lymphocytes # 0.1 L Monocytes # 0.4 Eosinophils # 0.0 Basophils # 0.1 Nucleated Red Blood Cells # 0.2 H Medications Current Medications Amlodipine Besylate (Norvasc) 5 mg DAILY PO Last administered on 08/06/16t 08: 41; Admin Dose 5 MG; Start 08/01/16 at 09:00 Atorvastatin Calcium (Lipitor) 40 mg HS PO Last administered on 08/06/16 21:51 ; Admin Dose 40 MG; Start 08/01/16 at 21:00 Calcitriol (Rocaltrol) 0.25 mcg DAILY PO Last administered on 08/06/16 08:40; Admin Dose 0.25 MCG; Start 08/01/16 at 09:00 Calcium/Vitamin D (Oyster Shell/ Vit-D (500/200)) 1 tab BID PO Last administered on 08/06/16 21:52; Admin Dose 1 TAB; Start 08/01/16 at 09:00 Hydralazine HCl (Apresoline) 50 mg Q8 PO Last administered on 08/07/16 05:42; Admin Dose 50 MG; Start 08/01/16 at 06:00 Metoprolol Tartrate (Lopressor) 25 mg BID PO Last administered on 08/06/16 21: 52; Admin Dose 25 MG; Start 08/01/16 at 09:00 Paroxetine HCl (Paxil) 10 mg DAILY PO Last administered on 08/06/16 08:40; Admin Dose 10 MG; Start 08/01/16 at 09:00 Acetaminophen (Tylenol Tab) 650 mg Q4H PRN PO PAIN AND OR ELEVATED TEMP; Start 08/01/16 at 00:30 Hydralazine HCl (Apresoline) 20 mg Q6H PRN IV ELEVATED BLOOD PRESSURE; Start at 00:30 Guaifenesin/ Dextromethorphan (Robitussin Dm Liquid Cup) 10 ml Q4H PRN PO COUGH Last administered on 08/01/16 00:35; Admin Dose 10 ML; Start 08/01/16 at 00:30 Heparin Sodium (Porcine) (Heparin (5000 Units/0.5 ml)) 5,000 unit BID SC Last administered on 08/04/16 08:55; Admin Dose 5,000 UNIT; Start 08/01/16 at 09:00 ; Status Future Hold Diagnostic Test (Pha) (Accu-Chek) 1 ea 02 XX Last administered on 08/07/16 02: 54; Admin Dose 1 EA; Start 08/01/16 at 02:00 Methylprednisolone Sodium Succinate (Solu-Medrol) 40 mg Q6 IV Last administered on 4/1/17at 05:41; Admin Dose 40 MG; Start 08/01/16 at 12:00 Epoetin Braden (Epogen (Esrd)) 6,000 units MoWeFr@17 SC Last administered on 08/06 17:25; Admin Dose 6,000 UNITS; Start 08/02/16 at 17:00 Miscellaneous Information 1 ea NOTE XX ; Start 08/02/16 at 12:30 Glucose (Glutose) 15 gm Q15M PRN PO DECREASED GLUCOSE; Start 08/02/16 at 12:30 Glucose (Glutose) 22.5 gm Q15M PRN PO DECREASED GLUCOSE; Start 08/02/16 at 12: 30 Dextrose (D50w Syringe) 25 ml Q15M PRN IV DECREASED GLUCOSE; Start 08/02/16 at 12:30 Dextrose (D50w Syringe) 50 ml Q15M PRN IV DECREASED GLUCOSE; Start 08/02/16 at 12:30 Glucagon (Glucagen) 1 mg Q15M PRN IM DECREASED GLUCOSE; Start 08/02/16 at 12:30 Glucose (Glutose) 15 gm Q15M PRN BUCCAL DECREASED GLUCOSE; Start 08/02/16 at 12 :30 Linagliptin (Tradjenta) 5 mg DAILY PO Last administered on 08/06/16 08:40; Admin Dose 5 MG; Start 08/04/16 at 20:00 Insulin Human NPH 20 unit 20 unit Q6 SC Last administered on 08/07/16 05:57; Admin Dose 20 UNIT; Start 08/06/16 at 18:00 Cefepime HCl (Maxipime 1gm/50 ml (Pmx)) 50 ml @ 100 mls/hr Q12 IVPB Last administered on 08/06/16 23:25; Admin Dose 100 MLS/HR; Start 08/06/16 at 21:00 Assessment/Plan Chief Complaint/Hosp Course Patient is 85 year old F with PMH of HTN, HLD, CKD now presentezd with SOB and ESRD was started on HD. She already has been planning for Stage IV CKD and had fistula done already. Pt does have some SOB. significant Leg edema. Likely realted to CKD and Diastolic HF. LVEF is nl. Problems: Additional Assessment/Plan Ct showing extensive right sided PNA I would consider Pulm consut as well as ID. PT will need may be PPV at night to improve atelactesis ABx Renal artery duplex pending I will .fu and see what is the finding if needed I would consider interventions. SIERRA GARCIA MD Aug 07, 2016 07:35
[2016-08-07 07:38] LABS: POTASSIUM 3.7 mmol/L (3.5-5.1)
[2016-08-07 07:41] LABS: CREATININE 4.16 mg/dl (0.44-1.00)
[2016-08-07 07:42] LABS: CALCIUM 8.2 mg/dl (8.4-10.2)
--- NOTE | 2016-08-07 08:06 | CONS ---
Date/Time of Note Date/Time of Note DATE: 08/07/16 TIME: 08:01 Assessment/Plan Assessment/Plan Problems: (1) Hemiparesis affecting left side as late effect of cerebrovascular accident Status: Chronic Comment: Noted and stable no new events (2) Type 2 diabetes mellitus with diabetic chronic kidney disease Status: Chronic Comment: Dialysis is started now. Her sugars went out of control but I believe this is related to the right-sided pneumonia that she has. She is improving given the initiation of antibiotics. I am not certain how he arrived at the diagnosis of COPD in this patient who is not on any type of treatment as an outpatient and his x-rays do not show this. Regardless she does have pneumonia. Given that she is improving I believe we can back off on the IV Solu -Medrol which will allow us to get a handle on controlling her sugars Qualifiers: Diabetes mellitus halfway insulin use: with terminal block assembler use Chronic kidney disease stage: stage 5, not on chronic dialysis Qualified Code: E11.22 - Type 2 diabetes mellitus with stage 5 chronic kidney disease not on chronic dialysis, with long-term current use of insulin (3) Pneumonia involving right lung Status: Acute Comment: By CT scan there is a significant extensive right lung pneumonia Qualifiers: Pneumonia type: due to unspecified organism Lung location: unspecified part of lung Qualified Code: J18.9 - Pneumonia of right lung due to infectious organism, unspecified part of lung (4) Diastolic dysfunction Status: Chronic Comment: Noted. 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 The question is raised about what should be the long-term planning on this. As this was placed by Dr. Moore it would be appropriate to ask him to address this. Qualifiers: Encounter type: subsequent encounter Qualified Code: T85.9XXD - Disorder of bile duct stent, subsequent encounter (7) End stage renal disease on dialysis due to type 2 diabetes mellitus Status: Chronic Comment: As per nephrology (8) Osteoporosis Status: Chronic Comment: Noted. No immediate need for therapeutic intervention during this hospitalization although he may want to limit the steroids. Qualifiers: Osteoporosis type: age-related Presence of current pathological fracture: without current pathological fracture Qualified Code: M81.0 - Age-related osteoporosis without current pathological fracture Consultation Date/Type/Reason Admit Date/Time Jul 31, 2016 at 19:59 Initial Consult Date 08/06/16 Type of Consultation: Endocrinology Reason for Consultation Diabetes mellitus type 2 out of control; end-stage renal disease; significant right sided pneumonia; hypertension; status post CVA Referring Provider: BRYANT PERALTA 24 HR Interval Summary Free Text/Dictation Patient easily arousable oriented times person place and time Detailed Summary Respiratory: other (Reports cough and shortness of breath have slightly improved since admission and initiation of antibiotics yesterday) Cardiovascular: no complaints Gastrointestinal: no complaints Exam/Review of Systems Vital Signs Vitals Vital Signs Date Time Temp Pulse Resp B/P Pulse Ox O2 Delivery O2 Flow Rate FiO2 08/07/16 07:14 98.1 94 20 130/58 95 08/07/16 02:59 4.0 08/07/16 02:59 Nasal Cannula Intake and Output 08/06/16 08/06/16 08/07/16 15:00 23:00 07:00 Intake Total 400 ml 550 ml Output Total 2400 ml Balance -2000 ml 550 ml Exam Constitutional: alert, oriented Neck: non-tender, supple Respiratory: diminished breath sounds (Right side), tactile fremitus (Right side) Cardiovascular: nl pulses, regular rate and rhythm Gastrointestinal: nl liver, spleen, non-tender, soft Results Result Diagram: 08/07/1617 08/07/16 0617 Results 24 hrs Laboratory Tests Test 08/06/16 11:58 08/06/16 15:42 08/06/16 16:05 08/06/16 17:45 Bedside Glucose 421 *H 468 *H 430 *H Troponin I 0.021 Test 08/06/16 19:40 08/06/16 21:55 08/06/16 23:34 08/07/16 02:47 Troponin I 0.025 Bedside Glucose 211 221 H 162 Test 08/07/16 05:47 08/07/16 06:17 Bedside Glucose 159 White Blood Count 14.0 H Red Blood Count 3.58 L Hemoglobin 10.6 L Hematocrit 33.1 L Mean Corpuscular Volume 92.5 Mean Corpuscular Hemoglobin 29.6 Mean Corpuscular Hemoglobin Concent 32.0 Red Cell Distribution Width 14.0 Platelet Count 104 #L Mean Platelet Volume 11.1 H Neutrophils % 92.9 H Lymphocytes % 0.8 L Monocytes % 2.6 Eosinophils % 0.0 Basophils % 0.6 Nucleated Red Blood Cells % 1.5 H Neutrophils # 13.0 H Lymphocytes # 0.1 L Monocytes # 0.4 Eosinophils # 0.0 Basophils # 0.1 Nucleated Red Blood Cells # 0.2 H Sodium Level 139 Potassium Level 3.7 Chloride Level 103 Carbon Dioxide Level 29 Anion Gap 11 Blood Urea Nitrogen 51 H Creatinine 4.16 #H Glucose Level 173 # Calcium Level 8.2 L Medications Medications Current Medications Amlodipine Besylate (Norvasc) 5 mg DAILY PO Last administered on 08/06/16 08: 41; Admin Dose 5 MG; Start 08/01/16 at 09:00 Atorvastatin Calcium (Lipitor) 40 mg HS PO Last administered on 08/06/16 21:51 ; Admin Dose 40 MG; Start 08/01/16 at 21:00 Calcitriol (Rocaltrol) 0.25 mcg DAILY PO Last administered on 08/06/16 08:40; Admin Dose 0.25 MCG; Start 08/01/16 at 09:00 Calcium/Vitamin D (Oyster Shell/ Vit-D (500/200)) 1 tab BID PO Last administered on 08/06/16 21:52; Admin Dose 1 TAB; Start 08/01/16 at 09:00 Hydralazine HCl (Apresoline) 50 mg Q8 PO Last administered on 08/07/16 05:42; Admin Dose 50 MG; Start 08/01/16 at 06:00 Metoprolol Tartrate (Lopressor) 25 mg BID PO Last administered on 08/06/16 21: 52; Admin Dose 25 MG; Start 08/01/16 at 09:00 Paroxetine HCl (Paxil) 10 mg DAILY PO Last administered on 08/06/16 08:40; Admin Dose 10 MG; Start 08/01/16 at 09:00 Acetaminophen (Tylenol Tab) 650 mg Q4H PRN PO PAIN AND OR ELEVATED TEMP; Start 08/01/16 at 00:30 Hydralazine HCl (Apresoline) 20 mg Q6H PRN IV ELEVATED BLOOD PRESSURE; Start at 00:30 Guaifenesin/ Dextromethorphan (Robitussin Dm Liquid Cup) 10 ml Q4H PRN PO COUGH Last administered on 08/01/16 00:35; Admin Dose 10 ML; Start 08/01/16 at 00:30 Heparin Sodium (Porcine) (Heparin (5000 Units/0.5 ml)) 5,000 unit BID SC Last administered on 08/04/16 08:55; Admin Dose 5,000 UNIT; Start 08/01/16 at 09:00 ; Status Future Hold Diagnostic Test (Pha) (Accu-Chek) 1 ea 02 XX Last administered on 08/07/16 02: 54; Admin Dose 1 EA; Start 08/01/16 at 02:00 Methylprednisolone Sodium Succinate (Solu-Medrol) 40 mg Q6 IV Last administered on 08/07/16 05:41; Admin Dose 40 MG; Start 08/01/16 at 12:00 Epoetin Braden (Epogen (Esrd)) 6,000 units MoWeFr@17 SC Last administered on 08/06 17:25; Admin Dose 6,000 UNITS; Start 08/02/16 at 17:00 Miscellaneous Information 1 ea NOTE XX ; Start 08/02/16 at 12:30 Glucose (Glutose) 15 gm Q15M PRN PO DECREASED GLUCOSE; Start 08/02/16 at 12:30 Glucose (Glutose) 22.5 gm Q15M PRN PO DECREASED GLUCOSE; Start 08/02/16 at 12: 30 Dextrose (D50w Syringe) 25 ml Q15M PRN IV DECREASED GLUCOSE; Start 08/02/16 at 12:30 Dextrose (D50w Syringe) 50 ml Q15M PRN IV DECREASED GLUCOSE; Start 08/02/16 at 12:30 Glucagon (Glucagen) 1 mg Q15M PRN IM DECREASED GLUCOSE; Start 08/02/16 at 12:30 Glucose (Glutose) 15 gm Q15M PRN BUCCAL DECREASED GLUCOSE; Start 08/02/16 at 12 :30 Linagliptin (Tradjenta) 5 mg DAILY PO Last administered on 08/06/16 08:40; Admin Dose 5 MG; Start 08/04/16 at 20:00 Insulin Human NPH 20 unit 20 unit Q6 SC Last administered on 08/07/16 05:57; Admin Dose 20 UNIT; Start 08/06/16 at 18:00 Cefepime HCl (Maxipime 1gm/50 ml (Pmx)) 50 ml @ 100 mls/hr Q12 IVPB Last administered on 08/06/16t 23:25; Admin Dose 100 MLS/HR; Start 08/06/16 at 21:00 BUNNY WATSON MD Aug 07, 2016 08:06
--- NOTE | 2016-08-07 08:43 | PN ---
Date/Time of Note Date/Time of Note DATE: 08/07/16 TIME: 08:41 Assessment/Plan Lines/Catheters IV Catheter Type (from [facility]): Permacath Chavez in Place (from [facility]): No Assessment/Plan Chief Complaint/Hosp Course -Chronic kidney disease stage V, impending end-stage renal disease: Fistula has not fully matured yet. S/P Maurice Catheter, S/P R IJ perm catheter -Bilateral lower extremity atherosclerosis: Will continue our vascular surveillance. No further intervention is needed at this time and will follow as an outpatient. -Optimize vascular status (blood pressure medications, diet, nutrition, exercise , sugar control, antiplatelets). -Discussed findings, plan and management with the patient. She understands with a certified yarn worker. -Thank you for allowing us to partake in the care of your patient. Please call with any questions. Problems: Subjective 24 Hr Interval Summary no new vascular events overnight, CT demonstrates pneumonia Exam/Review of Systems Vital Signs Vitals Vital Signs Date Time Temp Pulse Resp B/P Pulse Ox O2 Delivery O2 Flow Rate FiO2 08/07/16 08:08 88 08/07/16 07:14 98.1 20 130/58 95 08/07/16 02:59 4.0 08/07/16 02:59 Nasal Cannula Intake and Output 08/06/16 08/06/16 08/07/16 14:59 22:59 06:59 Intake Total 400 ml 550 ml Output Total 2400 ml Balance -2000 ml 550 ml Exam Free Text/Dictation GENERAL: Alert and oriented x3. PULMONARY: Bilateral crackles at the bases. CARDIOVASCULAR: S1, S2 present. ABDOMEN: Soft, nontender, nondistended. Bowel sounds positive. Truncal obesity. EXTREMITIES: LEFT UPPER EXTREMITY: Palpable brachial pulse. Motor, sensory intact. Capillary refill 2 to 3 seconds. Surgical scar well healed. Fistula with bruit and thrill present. ecchymosis at the elbow Results Result Diagram: 08/07/1661608/07/16616 ELIZA LI MD Aug 07, 2016 08:42
[2016-08-07] MEDS: CALCITRIOL 0.25 MCG CAP PO SCH (09:00)
[2016-08-07] MEDS: PAROXETINE 10 MG TAB PO SCH (09:00)
[2016-08-07] MEDS: INSULIN ASPART [NOVOLOG] 3 ML PEN SC SCH ×4 (09:47→22:10)
--- NOTE | 2016-08-07 11:09 | RADRPT ---
PROCEDURE: US Renal Arteries. CLINICAL INDICATION: Hypertension TECHNIQUE: Renal artery Doppler ultrasound was performed with molina scale, color flow, and Doppler interrogation of the renal arteries and kidneys. COMPARISON: None available FINDINGS: The kidneys are well visualized. The right kidney measures 7.8 cm in length. The left kidney measure s 6.8 cm in length. Both kidneys demonstrate diffusely increased cortical echogenicity. No solid re nal mass, calculus, hydronephrosis or perinephric fluid collection is identified. Visualized portio n of the abdominal aorta is normal in caliber. The aortic peak systolic velocity is 47 cm/sec. LOCATIONRIGHT (cm/sec)LEFT (cm/sec) Prox main renal artery PSV38 46 Resistive Index0.78 0.72 Mid main renal artery PSV27 52 Resistive Index0.61 0.78 Dist main renal artery PSV20 55 Resistive Index0.59 0.84 Renal Artery-Aorta Ratio0.8 1.2 Upper Arcuate artery PSV19 38 Resistive Index0.57 0.64 Mid Arcuate artery PSV20 27 Resistive Index0.54 0.62 Lower Arcuate artery PSV13 20 Resistive Index0.61 0.60 IMPRESSION: 1. Both kidneys are mildly atrophic and demonstrate diffusely increased cortical echogenicity, sugg estive of chronic medical renal disease. There is no obstructive uropathy. 2. No sonographic evidence for renal arterial stenosis is identified. RPTAT: QQ .Brody Cameron MD, Date Time Electronically viewed and signed by .Brody Cameron MD, MD on 08/07/2016 11:09 .R/
--- NOTE | 2016-08-07 11:16 | RADRPT ---
Vent Rate: 93 bpm RR Interval: 0 msec IA Interval: 166 msec QRS Duration: 76 msec QT Interval: 334 msec QTC Interval: 415 msec P-R-T [place]: 60 - 49 - 55 degrees Normal sinus rhythm Low voltage QRS Borderline ECG Electronically Signed By: Andrew Mejia [id number]
--- NOTE | 2016-08-07 12:17 | PN ---
Date/Time of Note Date/Time of Note DATE: 08/07/16 TIME: 12:16 Assessment/Plan VTE Prophylaxis VTE Prophylaxis Intervention: other Lines/Catheters IV C[facility]ter Type (from [facility] Permacath Urinary Cath still in place: No Assessment/Plan Chief Complaint/Hosp Course -Acute respiratory syndrome distress most likely secondary to pulmonary edema and fluid overload, discussed with Dr. Leon will patient will undergo urgent hemodialysis today, transferred to telemetry for close monitoring. - Acute bronchitis, continue Zithromax. - COPD exacerbation, continue breathing treatment. Dr. Natarajan is following in pulmonology consultation - End-stage renal disease stage V. Dr. Leon is following in nephrology consultation. Continue to hemodialysis via right femoral hemodialysis catheter. - Pulmonary edema. Continue diuresis. - Anemia of chronic kidney disease. Continue Epogen. - Diabetes mellitus type 2 hyperglycemia. Patient was started on steroids, will add NPH with each steroid dose, continue NovoLog per moderate algorithm sliding scale. - Hypertension, continue Norvasc. -Left upper extremity AV fistula, non-matured -Status post right hemodialysis non-tunneled catheter placement by Dr. Manning on 08/03. S/p R IJ tunneled hemodialysis catheter placement. Problems: Subjective 24 Hr Interval Summary Free Text/Dictation Patient resting comfortably Exam/Review of Systems Vital Signs Vitals Vital Signs Date Time Temp Pulse Resp B/P Pulse Ox O2 Delivery O2 Flow Rate FiO2 08/07/16 12:05 96 08/07/16 11:35 98.3 20 119/58 96 08/07/16 09:34 4.0 08/07/16 02:59 Nasal Cannula Intake and Output 08/06/16 08/06/16 08/07/16 15:00 23:00 07:00 Intake Total 400 ml 550 ml Output Total 2400 ml Balance -2000 ml 550 ml Exam Constitutional: well developed Head: atraumatic, normocephalic Neck: supple Respiratory: diminished breath sounds Cardiovascular: regular rate and rhythm Gastrointestinal: non-tender, soft Extremities: normal pulses Results Result Diagram: 08/07/1661608/07/16616 Results 24 hrs Laboratory Tests Test 08/06/16 15:42 08/06/16 16:05 08/06/16 17:45 08/06/16 19:40 Bedside Glucose 468 *H 430 *H Troponin I 0.021 0.025 Test 08/06/16 21:55 08/06/16 23:34 08/07/16 02:47 08/07/16 05:47 Bedside Glucose 211 221 H 162 159 Test 08/07/16 06:17 08/07/16 08:31 White Blood Count 14.0 H Red Blood Count 3.58 L Hemoglobin 10.6 L Hematocrit 33.1 L Mean Corpuscular Volume 92.5 Mean Corpuscular Hemoglobin 29.6 Mean Corpuscular Hemoglobin Concent 32.0 Red Cell Distribution Width 14.0 Platelet Count 104 #L Mean Platelet Volume 11.1 H Neutrophils % 92.9 H Lymphocytes % 0.8 L Monocytes % 2.6 Eosinophils % 0.0 Basophils % 0.6 Nucleated Red Blood Cells % 1.5 H Neutrophils # 13.0 H Lymphocytes # 0.1 L Monocytes # 0.4 Eosinophils # 0.0 Basophils # 0.1 Nucleated Red Blood Cells # 0.2 H Sodium Level 139 Potassium Level 3.7 Chloride Level 103 Carbon Dioxide Level 29 Anion Gap 11 Blood Urea Nitrogen 51 H Creatinine 4.16 #H Glucose Level 173 # Calcium Level 8.2 L Bedside Glucose 146 Medications Medications Current Medications Amlodipine Besylate (Norvasc) 5 mg DAILY PO Last administered on 08/06/16 08: 41; Admin Dose 5 MG; Start 08/01/16 at 09:00 Atorvastatin Calcium (Lipitor) 40 mg HS PO Last administered on 08/06/16 21:51 ; Admin Dose 40 MG; Start 08/01/16 at 21:00 Calcitriol (Rocaltrol) 0.25 mcg DAILY PO Last administered on 08/06/16 08:40; Admin Dose 0.25 MCG; Start 08/01/16 at 09:00 Calcium/Vitamin D (Oyster Shell/ Vit-D (500/200)) 1 tab BID PO Last administered on 08/06/16 21:52; Admin Dose 1 TAB; Start 08/01/16 at 09:00 Hydralazine HCl (Apresoline) 50 mg Q8 PO Last administered on 08/07/16 05:42; Admin Dose 50 MG; Start 08/01/16 at 06:00 Metoprolol Tartrate (Lopressor) 25 mg BID PO Last administered on 08/06/16 21: 52; Admin Dose 25 MG; Start 08/01/16 at 09:00 Paroxetine HCl (Paxil) 10 mg DAILY PO Last administered on 08/06/16 08:40; Admin Dose 10 MG; Start 08/01/16 at 09:00 Acetaminophen (Tylenol Tab) 650 mg Q4H PRN PO PAIN AND OR ELEVATED TEMP; Start 08/01/16 at 00:30 Hydralazine HCl (Apresoline) 20 mg Q6H PRN IV ELEVATED BLOOD PRESSURE; Start at 00:30 Guaifenesin/ Dextromethorphan (Robitussin Dm Liquid Cup) 10 ml Q4H PRN PO COUGH Last administered on 08/01/16 00:35; Admin Dose 10 ML; Start 08/01/16 at 00:30 Heparin Sodium (Porcine) (Heparin (5000 Units/0.5 ml)) 5,000 unit BID SC Last administered on 08/04/16 08:55; Admin Dose 5,000 UNIT; Start 08/01/16 at 09:00 ; Status Future Hold Diagnostic Test (Pha) (Accu-Chek) 1 ea 02 XX Last administered on 08/07/16 02: 54; Admin Dose 1 EA; Start 08/01/16 at 02:00 Epoetin Braden (Epogen (Esrd)) 6,000 units MoWeFr@17 SC Last administered on 08/06 17:25; Admin Dose 6,000 UNITS; Start 08/02/16 at 17:00 Miscellaneous Information 1 ea NOTE XX ; Start 08/02/16 at 12:30 Glucose (Glutose) 15 gm Q15M PRN PO DECREASED GLUCOSE; Start 08/02/16 at 12:30 Glucose (Glutose) 22.5 gm Q15M PRN PO DECREASED GLUCOSE; Start 08/02/16 at 12: 30 Dextrose (D50w Syringe) 25 ml Q15M PRN IV DECREASED GLUCOSE; Start 08/02/16 at 12:30 Dextrose (D50w Syringe) 50 ml Q15M PRN IV DECREASED GLUCOSE; Start 08/02/16 at 12:30 Glucagon (Glucagen) 1 mg Q15M PRN IM DECREASED GLUCOSE; Start 08/02/16 at 12:30 Glucose (Glutose) 15 gm Q15M PRN BUCCAL DECREASED GLUCOSE; Start 08/02/16 at 12 :30 Linagliptin 5 mg 5 mg DAILY PO Last administered on 08/06/16 08:40; Admin Dose 5 MG; Start 08/04/16 at 20:00 Cefepime HCl (Maxipime 1gm/50 ml (Pmx)) 50 ml @ 100 mls/hr Q12 IVPB Last administered on 08/06/16 23:25; Admin Dose 100 MLS/HR; Start 08/06/16 at 21:00 Methylprednisolone Sodium Succinate (Solu-Medrol) 20 mg Q8 IV ; Start 08/07/16 at 14:00 Insulin Human NPH (Humulin N) 20 unit Q8 SC ; Start 08/07/16 at 14:00 ANGEL DANIELS Aug 07, 2016 12:16
--- NOTE | 2016-08-07 13:15 | CONS ---
Date/Time of Note Date/Time of Note DATE: 08/07/16 TIME: 13:13 Assessment/Plan Assessment/Plan Chief Complaint/Hosp Course 1. End-stage renal disease stage V. 2. Fluid overload.better 3. Pulmonary edema.better 4. Anemia of chronic kidney disease. 5. diabetes mellitus, uncontrolled 6. 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 7. AV fistula on the left upper extremity. Problems: Additional Assessment/Plan 1. Continue DM type II meds. Consultation Date/Type/Reason Admit Date/Time Jul 31, 2016 at 19:59 Initial Consult Date 08/01/16 Type of Consultation: Nephrology Reason for Consultation Leon Referring Provider: BRYANT PERALTA 24 HR Interval Summary Constitutional: no complaints Exam/Review of Systems Vital Signs Vitals Vital Signs Date Time Temp Pulse Resp B/P Pulse Ox O2 Delivery O2 Flow Rate FiO2 08/07/16 12:05 96 08/07/16 11:35 98.3 20 119/58 96 08/07/16 09:34 4.0 08/07/16 02:59 Nasal Cannula Intake and Output 08/06/16 08/06/16 08/07/16 15:00 23:00 07:00 Intake Total 400 ml 550 ml Output Total 2400 ml Balance -2000 ml 550 ml Exam Constitutional: alert, oriented Psych: no complaints Head: normocephalic Eyes: nl conjunctiva ENMT: nl external ears & nose Neck: supple Respiratory: clear to auscultation, diminished breath sounds Cardiovascular: other (SR on monitor), regular rate and rhythm Gastrointestinal: soft Results Result Diagram: 08/07/1617 08/07/1617 Results 24 hrs Laboratory Tests Test 08/06/16 15:42 08/06/16 16:05 08/06/16 17:45 08/06/16 19:40 Bedside Glucose 468 *H 430 *H Troponin I 0.021 0.025 Test 08/06/16 21:55 08/06/16 23:34 08/07/16 02:47 08/07/16 05:47 Bedside Glucose 211 221 H 162 159 Test 08/07/16 06:17 08/07/16 08:31 White Blood Count 14.0 H Red Blood Count 3.58 L Hemoglobin 10.6 L Hematocrit 33.1 L Mean Corpuscular Volume 92.5 Mean Corpuscular Hemoglobin 29.6 Mean Corpuscular Hemoglobin Concent 32.0 Red Cell Distribution Width 14.0 Platelet Count 104 #L Mean Platelet Volume 11.1 H Neutrophils % 92.9 H Lymphocytes % 0.8 L Monocytes % 2.6 Eosinophils % 0.0 Basophils % 0.6 Nucleated Red Blood Cells % 1.5 H Neutrophils # 13.0 H Lymphocytes # 0.1 L Monocytes # 0.4 Eosinophils # 0.0 Basophils # 0.1 Nucleated Red Blood Cells # 0.2 H Sodium Level 139 Potassium Level 3.7 Chloride Level 103 Carbon Dioxide Level 29 Anion Gap 11 Blood Urea Nitrogen 51 H Creatinine 4.16 #H Glucose Level 173 # Calcium Level 8.2 L Bedside Glucose 146 Medications Medications Current Medications Amlodipine Besylate (Norvasc) 5 mg DAILY PO Last administered on 08/06/16 08: 41; Admin Dose 5 MG; Start 08/01/16 at 09:00 Atorvastatin Calcium (Lipitor) 40 mg HS PO Last administered on 08/06/16 21:51 ; Admin Dose 40 MG; Start 08/01/16 at 21:00 Calcitriol (Rocaltrol) 0.25 mcg DAILY PO Last administered on 08/06/16 08:40; Admin Dose 0.25 MCG; Start 08/01/16 at 09:00 Calcium/Vitamin D (Oyster Shell/ Vit-D (500/200)) 1 tab BID PO Last administered on 08/06/16 21:52; Admin Dose 1 TAB; Start 08/01/16 at 09:00 Hydralazine HCl (Apresoline) 50 mg Q8 PO Last administered on 08/07/16 05:42; Admin Dose 50 MG; Start 08/01/16 at 06:00 Metoprolol Tartrate (Lopressor) 25 mg BID PO Last administered on 08/06/16 21: 52; Admin Dose 25 MG; Start 08/01/16 at 09:00 Paroxetine HCl (Paxil) 10 mg DAILY PO Last administered on 08/06/16 08:40; Admin Dose 10 MG; Start 08/01/16 at 09:00 Acetaminophen (Tylenol Tab) 650 mg Q4H PRN PO PAIN AND OR ELEVATED TEMP; Start 08/01/16 at 00:30 Hydralazine HCl (Apresoline) 20 mg Q6H PRN IV ELEVATED BLOOD PRESSURE; Start at 00:30 Guaifenesin/ Dextromethorphan (Robitussin Dm Liquid Cup) 10 ml Q4H PRN PO COUGH Last administered on 08/01/16 00:35; Admin Dose 10 ML; Start 08/01/16 at 00:30 Heparin Sodium (Porcine) (Heparin (5000 Units/0.5 ml)) 5,000 unit BID SC Last administered on 08/04/16 08:55; Admin Dose 5,000 UNIT; Start 08/01/16 at 09:00 ; Status Future Hold Diagnostic Test (Pha) (Accu-Chek) 1 ea 02 XX Last administered on 08/07/16 02: 54; Admin Dose 1 EA; Start 08/01/16 at 02:00 Epoetin Braden (Epogen (Esrd)) 6,000 units MoWeFr@17 SC Last administered on 08/06 17:25; Admin Dose 6,000 UNITS; Start 08/02/16 at 17:00 Miscellaneous Information 1 ea NOTE XX ; Start 08/02/16 at 12:30 Glucose (Glutose) 15 gm Q15M PRN PO DECREASED GLUCOSE; Start 08/02/16 at 12:30 Glucose (Glutose) 22.5 gm Q15M PRN PO DECREASED GLUCOSE; Start 08/02/16 at 12: 30 Dextrose (D50w Syringe) 25 ml Q15M PRN IV DECREASED GLUCOSE; Start 08/02/16 at 12:30 Dextrose (D50w Syringe) 50 ml Q15M PRN IV DECREASED GLUCOSE; Start 08/02/16 at 12:30 Glucagon (Glucagen) 1 mg Q15M PRN IM DECREASED GLUCOSE; Start 08/02/16 at 12:30 Glucose (Glutose) 15 gm Q15M PRN BUCCAL DECREASED GLUCOSE; Start 08/02/16 at 12 :30 Linagliptin 5 mg 5 mg DAILY PO Last administered on 08/06/16 08:40; Admin Dose 5 MG; Start 08/04/16 at 20:00 Cefepime HCl (Maxipime 1gm/50 ml (Pmx)) 50 ml @ 100 mls/hr Q12 IVPB Last administered on 08/06/16 23:25; Admin Dose 100 MLS/HR; Start 08/06/16 at 21:00 Methylprednisolone Sodium Succinate (Solu-Medrol) 20 mg Q8 IV ; Start 08/07/16 at 14:00 Insulin Human NPH (Humulin N) 20 unit Q8 SC ; Start 08/07/16 at 14:00 LOUISE LAWRECNE Aug 07, 2016 13:15
[2016-08-07] MEDS: LINAGLIPTIN 5 MG TABLET PO SCH (13:59)
[2016-08-07] MEDS: AMLODIPINE 5 MG TAB PO SCH (14:01)
[2016-08-07] MEDS: METOPROLOL 25 MG TAB PO SCH ×2 (14:01→22:04)
[2016-08-07] MEDS: CALCIUM/VITAMIN D (500/200) TAB PO SCH ×2 (14:03→22:03)
[2016-08-07] MEDS: CEFEPIME 1GM/50 ML (PMX) 50 ML IVPB SCH ×2 (15:22→22:01)
[2016-08-07] MEDS: ATORVASTATIN 40 MG TAB PO SCH (22:23)
[2016-08-08] VITALS (12 sets, daily range): BP systolic 131–165; BP diastolic 60–73; PULSE 94–106; RESP 17–20
[2016-08-08] MEDS: ALBUTEROL/IPRATROPIUM (NEB) 3 ML AMP HHN SCH ×4 (01:04→20:07)
[2016-08-08] MEDS: ACCU-CHEK XX SCH (02:53)
[2016-08-08] MEDS: METHYLPREDNISOLONE 40 MG INJ IV SCH ×3 (05:29→22:00)
[2016-08-08] MEDS: NPH, HUMAN INSULIN ISOPHANE 3ML VIAL SC SCH ×3 (05:40→22:29)
[2016-08-08 06:23] LABS: ADD SCAN DIFF NO
[2016-08-08 06:41] LABS: ABNORMAL IP MESSAGE 1; HEMATOCRIT 33.6 % (37.0-47.0); HEMOGLOBIN 10.4 g/dl (12.0-16.0); MEAN CORPUSCULAR HEMOGLOBIN 29.2 pg (29.0-33.0); MEAN CORPUSCULAR VOLUME 94.4 fl (82.0-101.0); MEAN PLATELET VOLUME 11.6 fl (7.4-10.4); PLATELET COUNT 93 10^3/UL (140-415); RED BLOOD COUNT 3.56 10^6/ul (4.20-5.40); RED CELL DISTRIBUTION WIDTH 14.4 % (11.5-14.5); WHITE BLOOD COUNT 18.1 10^3/ul (4.8-10.8)
[2016-08-08 06:53] LABS: POTASSIUM 3.4 mmol/L (3.5-5.1)
[2016-08-08] MEDS: FUROSEMIDE 40 MG INJ IV SCH ×2 (06:54→17:46)
[2016-08-08 06:55] LABS: BILIRUBIN,INDIRECT 0.1 mg/dl (0-1.1); BILIRUBIN,TOTAL 0.1 mg/dl (0.2-1.3); CREATININE 4.18 mg/dl (0.44-1.00)
[2016-08-08 06:56] LABS: ALBUMIN/GLOBULIN RATIO 0.88; TOTAL PROTEIN 6.4 g/dl (6.1-8.1)
[2016-08-08 06:57] LABS: CALCIUM 8.6 mg/dl (8.4-10.2)
[2016-08-08] MEDS: INSULIN ASPART [NOVOLOG] 3 ML PEN SC SCH ×4 (09:17→22:03)
[2016-08-08 09:33] LABS: LYMPHOCYTES # 0.5 10^3/ul (0.8-2.9); MONOCYTE # 0.4 10^3/ul (0.3-0.9); NEUTROPHIL # 16.7 10^3/ul (1.6-7.5)
[2016-08-08] MEDS: CEFEPIME 1GM/50 ML (PMX) 50 ML IVPB SCH ×2 (09:36→22:01)
[2016-08-08] MEDS: METOPROLOL 25 MG TAB PO SCH ×2 (09:37→20:45)
[2016-08-08] MEDS: CALCIUM/VITAMIN D (500/200) TAB PO SCH ×2 (09:37→20:44)
[2016-08-08] MEDS: CALCITRIOL 0.25 MCG CAP PO SCH (09:38)
[2016-08-08] MEDS: LINAGLIPTIN 5 MG TABLET PO SCH (09:38)
[2016-08-08] MEDS: PAROXETINE 10 MG TAB PO SCH (09:38)
[2016-08-08] MEDS: AMLODIPINE 5 MG TAB PO SCH (09:38)
--- NOTE | 2016-08-08 10:07 | CONS ---
Date/Time of Note Date/Time of Note DATE: 08/08/16 TIME: 10:00 Assessment/Plan Assessment/Plan Problems: (1) COPD (chronic obstructive pulmonary disease) Status: Chronic Comment: Patient is being treated for COPD by pulmonary. This includes the usage of intravenous corticosteroids. I am going to place the patient on inhaled medication to help with this treatment. Qualifiers: COPD type: unspecified COPD Qualified Code: J44.9 - Chronic obstructive pulmonary disease, unspecified COPD type (2) End stage renal disease on dialysis due to type 2 diabetes mellitus Status: Chronic Comment: Patient is receiving dialysis as per Dr. Leon. I will adjust the medications to get better control. 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 Viral RNA is negative (4) Hypertension Status: Chronic Comment: Adequate control; please note if indicated could use an HEYDI inhibitor Qualifiers: Hypertension type: essential hypertension Qualified Code: I10 - Essential hypertension (5) Hyperlipidemia associated with type 2 diabetes mellitus Status: Chronic Comment: On statin therapy (6) Diastolic dysfunction Status: Chronic Comment: Adequate control beta-blockade (7) Type 2 diabetes mellitus with diabetic chronic kidney disease Status: Chronic Comment: Adjust medicines Qualifiers: Diabetes mellitus fpc insulin use: with intermodal customer service use Chronic kidney disease stage: stage 5, not on chronic dialysis Qualified Code: E11.22 - Type 2 diabetes mellitus with stage 5 chronic kidney disease not on chronic dialysis, with long-term current use of insulin Consultation Date/Type/Reason Admit Date/Time Jul 31, 2016 at 19:59 Initial Consult Date 08/06/16 Type of Consultation: Endocrinology Reason for Consultation Diabetes mellitus type 2 with inadequate outpatient control; now aggravated by IV corticosteroids; end-stage renal disease; COPD; hypertension Referring Provider: BRYANT PERALTA 24 HR Interval Summary Free Text/Dictation Patient is more bright and alert today but reports her breathing is relatively unchanged Constitutional: no complaints Detailed Summary Respiratory: no complaints Cardiovascular: no complaints Gastrointestinal: no complaints Exam/Review of Systems Vital Signs Vitals Vital Signs Date Time Temp Pulse Resp B/P Pulse Ox O2 Delivery O2 Flow Rate FiO2 08/08/16 08:20 96 08/08/16 07:54 98.6 20 135/60 98 08/08/16 07:33 Nasal Cannula 6.0 Intake and Output 08/07/16 08/07/16 08/08/16 15:00 23:00 07:00 Intake Total 400 ml 550 ml 150 ml Output Total 3400 ml Balance -3000 ml 550 ml 150 ml Exam Constitutional: alert, oriented Neck: non-tender, supple Respiratory: clear to auscultation, normal air movement Cardiovascular: nl pulses, regular rate and rhythm Results Result Diagram: 08/08/16 0548 08/08/16 0548 Results 24 hrs Laboratory Tests Test 08/07/16 13:26 08/07/16 16:09 08/07/16 21:46 08/08/16 02:06 Bedside Glucose 161 325 H 300 H 237 H Test 08/08/16 05:26 08/08/16 05:48 08/08/16 08:07 Bedside Glucose 225 H 217 White Blood Count 18.1 #H Red Blood Count 3.56 L Hemoglobin 10.4 L Hematocrit 33.6 L Mean Corpuscular Volume 94.4 Mean Corpuscular Hemoglobin 29.2 Mean Corpuscular Hemoglobin Concent 31.0 L Red Cell Distribution Width 14.4 Platelet Count 93 L Mean Platelet Volume 11.6 H Neutrophils % 92.0 H Band Neutrophils % 3.0 Lymphocytes % 3.0 L Monocytes % 2.0 Eosinophils % Nucleated Red Blood Cells % 2.0 H Neutrophils # 16.7 H Lymphocytes # 0.5 L Monocytes # 0.4 Eosinophils # Sodium Level 143 Potassium Level 3.4 L Chloride Level 99 Carbon Dioxide Level 29 Anion Gap 18 #H Blood Urea Nitrogen 57 H Creatinine 4.18 H Glucose Level 258 H Calcium Level 8.6 Total Bilirubin 0.1 L Direct Bilirubin 0.00 Indirect Bilirubin 0.1 Aspartate Amino Transf (AST/SGOT) 11 L Alanine Aminotransferase (ALT/SGPT) 9 L Alkaline Phosphatase 117 Total Protein 6.4 Albumin 3.0 L Globulin 3.40 H Albumin/Globulin Ratio 0.88 Medications Medications Current Medications Amlodipine Besylate (Norvasc) 5 mg DAILY PO Last administered on 08/08/16 09:38 ; Admin Dose 5 MG; Start 08/01/16 at 09:00 Atorvastatin Calcium (Lipitor) 40 mg HS PO Last administered on 08/07/16 22:23 ; Admin Dose 40 MG; Start 08/01/16 at 21:00 Calcitriol (Rocaltrol) 0.25 mcg DAILY PO Last administered on 08/08/16 09:38; Admin Dose 0.25 MCG; Start 08/01/16 at 09:00 Calcium/Vitamin D (Oyster Shell/ Vit-D (500/200)) 1 tab BID PO Last administered on 08/08/16 09:37; Admin Dose 1 TAB; Start 08/01/16 at 09:00 Hydralazine HCl (Apresoline) 50 mg Q8 PO Last administered on 08/08/16 05:33; Admin Dose 50 MG; Start 08/01/16 at 06:00 Metoprolol Tartrate (Lopressor) 25 mg BID PO Last administered on 08/08/16 09: 37; Admin Dose 25 MG; Start 08/01/16 at 09:00 Paroxetine HCl (Paxil) 10 mg DAILY PO Last administered on 08/08/16 09:38; Admin Dose 10 MG; Start 08/01/16 at 09:00 Acetaminophen (Tylenol Tab) 650 mg Q4H PRN PO PAIN AND OR ELEVATED TEMP; Start 08/01/16 at 00:30 Hydralazine HCl (Apresoline) 20 mg Q6H PRN IV ELEVATED BLOOD PRESSURE; Start at 00:30 Guaifenesin/ Dextromethorphan (Robitussin Dm Liquid Cup) 10 ml Q4H PRN PO COUGH Last administered on 08/01/16 00:35; Admin Dose 10 ML; Start 08/01/16 at 00:30 Heparin Sodium (Porcine) (Heparin (5000 Units/0.5 ml)) 5,000 unit BID SC Last administered on 08/04/16 08:55; Admin Dose 5,000 UNIT; Start 08/01/16 at 09:00 ; Status Future Hold Diagnostic Test (Pha) (Accu-Chek) 1 ea 02 XX Last administered on 08/08/16 02: 53; Admin Dose 1 EA; Start 08/01/16 at 02:00 Epoetin Braden (Epogen (Esrd)) 6,000 units MoWeFr@17 SC Last administered on 08/06 17:25; Admin Dose 6,000 UNITS; Start 08/02/16 at 17:00 Miscellaneous Information 1 ea NOTE XX ; Start 08/02/16 at 12:30 Glucose (Glutose) 15 gm Q15M PRN PO DECREASED GLUCOSE; Start 08/02/16 at 12:30 Glucose (Glutose) 22.5 gm Q15M PRN PO DECREASED GLUCOSE; Start 08/02/16 at 12: 30 Dextrose (D50w Syringe) 25 ml Q15M PRN IV DECREASED GLUCOSE; Start 08/02/16 at 12:30 Dextrose (D50w Syringe) 50 ml Q15M PRN IV DECREASED GLUCOSE; Start 08/02/16 at 12:30 Glucagon (Glucagen) 1 mg Q15M PRN IM DECREASED GLUCOSE; Start 08/02/16 at 12:30 Glucose (Glutose) 15 gm Q15M PRN BUCCAL DECREASED GLUCOSE; Start 08/02/16 at 12 :30 Linagliptin 5 mg 5 mg DAILY PO Last administered on 08/08/16 09:38; Admin Dose 5 MG; Start 08/04/16 at 20:00 Cefepime HCl (Maxipime 1gm/50 ml (Pmx)) 50 ml @ 100 mls/hr Q12 IVPB Last administered on 08/08/16 09:36; Admin Dose 100 MLS/HR; Start 08/06/16 at 21:00 Methylprednisolone Sodium Succinate (Solu-Medrol) 20 mg Q8 IV Last administered on 08/08/16 05:29; Admin Dose 20 MG; Start 08/07/16 at 14:00 Insulin Human NPH (Humulin N) 20 unit Q8 SC Last administered on 08/08/16 05:40 ; Admin Dose 20 UNIT; Start 08/07/16 at 14:00 BUNNY WATSON MD Aug 08, 2016 10:07
--- NOTE | 2016-08-08 11:33 | PN ---
Date/Time of Note Date/Time of Note DATE: 08/08/16 TIME: 11:32 Assessment/Plan VTE Prophylaxis VTE Prophylaxis Intervention: other Lines/Catheters IV Catheter Type (from [facility]): permacath Urinary Cath still in place: No Assessment/Plan Chief Complaint/Hosp Course -Acute respiratory syndrome distress most likely secondary to pulmonary edema and fluid overload, discussed with Dr. Leon will patient will undergo urgent hemodialysis today, transferred to telemetry for close monitoring. - Acute bronchitis, continue Zithromax. - COPD exacerbation, continue breathing treatment. Dr. Natarajan is following in pulmonology consultation - End-stage renal disease stage V. Dr. Leon is following in nephrology consultation. Continue to hemodialysis via right femoral hemodialysis catheter. - Pulmonary edema. Continue diuresis. - Anemia of chronic kidney disease. Continue Epogen. - Diabetes mellitus type 2 hyperglycemia. Patient was started on steroids, will add NPH with each steroid dose, continue NovoLog per moderate algorithm sliding scale. - Hypertension, continue Norvasc. -Left upper extremity AV fistula, non-matured -Status post right hemodialysis non-tunneled catheter placement by Dr. Manning on 08/03. S/p R IJ tunneled hemodialysis catheter placement. Problems: Subjective 24 Hr Interval Summary Free Text/Dictation Patient still has pulmonary congestion Exam/Review of Systems Vital Signs Vitals Vital Signs Date Time Temp Pulse Resp B/P Pulse Ox O2 Delivery O2 Flow Rate FiO2 08/08/16 11:10 98.6 104 20 154/70 95 08/08/16 08:00 Nasal Cannula 5.0 Intake and Output 08/07/16 08/07/16 08/08/16 15:00 23:00 07:00 Intake Total 400 ml 550 ml 150 ml Output Total 3400 ml Balance -3000 ml 550 ml 150 ml Exam Constitutional: well developed Head: atraumatic, normocephalic Respiratory: congested cough Cardiovascular: regular rate and rhythm Gastrointestinal: non-tender, soft Extremities: normal pulses Results Result Diagram: 08/08/16 0548 08/08/16 0548 Results 24 hrs Laboratory Tests Test 08/07/16 13:26 08/07/16 16:09 08/07/16 21:46 08/08/16 02:06 Bedside Glucose 161 325 H 300 H 237 H Test 08/08/16 05:26 08/08/16 05:48 08/08/16 08:07 08/08/16 11:05 Bedside Glucose 225 H 217 292 H White Blood Count 18.1 #H Red Blood Count 3.56 L Hemoglobin 10.4 L Hematocrit 33.6 L Mean Corpuscular Volume 94.4 Mean Corpuscular Hemoglobin 29.2 Mean Corpuscular Hemoglobin Concent 31.0 L Red Cell Distribution Width 14.4 Platelet Count 93 L Mean Platelet Volume 11.6 H Neutrophils % 92.0 H Band Neutrophils % 3.0 Lymphocytes % 3.0 L Monocytes % 2.0 Eosinophils % Nucleated Red Blood Cells % 2.0 H Neutrophils # 16.7 H Lymphocytes # 0.5 L Monocytes # 0.4 Eosinophils # Erythrocyte Sedimentation Rate 90 H Sodium Level 143 Potassium Level 3.4 L Chloride Level 99 Carbon Dioxide Level 29 Anion Gap 18 #H Blood Urea Nitrogen 57 H Creatinine 4.18 H Glucose Level 258 H Calcium Level 8.6 Total Bilirubin 0.1 L Direct Bilirubin 0.00 Indirect Bilirubin 0.1 Aspartate Amino Transf (AST/SGOT) 11 L Alanine Aminotransferase (ALT/SGPT) 9 L Alkaline Phosphatase 117 Total Protein 6.4 Albumin 3.0 L Globulin 3.40 H Albumin/Globulin Ratio 0.88 Medications Medications Current Medications Amlodipine Besylate (Norvasc) 5 mg DAILY PO Last administered on 08/08/16 09:38 ; Admin Dose 5 MG; Start 08/01/16 at 09:00 Atorvastatin Calcium (Lipitor) 40 mg HS PO Last administered on 08/07/16 22:23 ; Admin Dose 40 MG; Start 08/01/16 at 21:00 Calcitriol (Rocaltrol) 0.25 mcg DAILY PO Last administered on 08/08/16 09:38; Admin Dose 0.25 MCG; Start 08/01/16 at 09:00 Calcium/Vitamin D (Oyster Shell/ Vit-D (500/200)) 1 tab BID PO Last administered on 08/08/16 09:37; Admin Dose 1 TAB; Start 08/01/16 at 09:00 Hydralazine HCl (Apresoline) 50 mg Q8 PO Last administered on 08/08/16 05:33; Admin Dose 50 MG; Start 08/01/16 at 06:00 Metoprolol Tartrate (Lopressor) 25 mg BID PO Last administered on 08/08/16 09: 37; Admin Dose 25 MG; Start 08/01/16 at 09:00 Paroxetine HCl (Paxil) 10 mg DAILY PO Last administered on 08/08/16 09:38; Admin Dose 10 MG; Start 08/01/16 at 09:00 Acetaminophen (Tylenol Tab) 650 mg Q4H PRN PO PAIN AND OR ELEVATED TEMP; Start 08/01/16 at 00:30 Hydralazine HCl (Apresoline) 20 mg Q6H PRN IV ELEVATED BLOOD PRESSURE; Start at 00:30 Guaifenesin/ Dextromethorphan (Robitussin Dm Liquid Cup) 10 ml Q4H PRN PO COUGH Last administered on 08/01/16 00:35; Admin Dose 10 ML; Start 08/01/16 at 00:30 Heparin Sodium (Porcine) (Heparin (5000 Units/0.5 ml)) 5,000 unit BID SC Last administered on 08/04/16 08:55; Admin Dose 5,000 UNIT; Start 08/01/16 at 09:00 ; Status Future Hold Diagnostic Test (Pha) (Accu-Chek) 1 ea 02 XX Last administered on 08/08/16 02: 53; Admin Dose 1 EA; Start 08/01/16 at 02:00 Epoetin Braden (Epogen (Esrd)) 6,000 units MoWeFr@17 SC Last administered on 08/06 17:25; Admin Dose 6,000 UNITS; Start 08/02/16 at 17:00 Miscellaneous Information 1 ea NOTE XX ; Start 08/02/16 at 12:30 Glucose (Glutose) 15 gm Q15M PRN PO DECREASED GLUCOSE; Start 08/02/16 at 12:30 Glucose (Glutose) 22.5 gm Q15M PRN PO DECREASED GLUCOSE; Start 08/02/16 at 12: 30 Dextrose (D50w Syringe) 25 ml Q15M PRN IV DECREASED GLUCOSE; Start 08/02/16 at 12:30 Dextrose (D50w Syringe) 50 ml Q15M PRN IV DECREASED GLUCOSE; Start 08/02/16 at 12:30 Glucagon (Glucagen) 1 mg Q15M PRN IM DECREASED GLUCOSE; Start 08/02/16 at 12:30 Glucose (Glutose) 15 gm Q15M PRN BUCCAL DECREASED GLUCOSE; Start 08/02/16 at 12 :30 Linagliptin 5 mg 5 mg DAILY PO Last administered on 08/08/16 09:38; Admin Dose 5 MG; Start 08/04/16 at 20:00 Cefepime HCl (Maxipime 1gm/50 ml (Pmx)) 50 ml @ 100 mls/hr Q12 IVPB Last administered on 08/08/16 09:36; Admin Dose 100 MLS/HR; Start 08/06/16 at 21:00 Methylprednisolone Sodium Succinate (Solu-Medrol) 20 mg Q8 IV Last administered on 08/08/16 05:29; Admin Dose 20 MG; Start 08/07/16 at 14:00 Insulin Human NPH (Humulin N) 26 unit Q8 SC ; Start 08/08/16 at 14:00 Salmeterol Xinafoate/ Fluticasone (Advair 250/50 Diskus) 1 inh BID INH ; Start 08/08/16 at 11:00 Montelukast Sodium (Singulair) 10 mg HS PO ; Start 08/08/16 at 21:00 Tiotropium [place] (Spiriva) 1 inh DAILY INH ; Start 08/08/16 at 11:00 ANGEL DANIELS Aug 08, 2016 11:33
--- NOTE | 2016-08-08 11:48 | CONS ---
Date/Time of Note Date/Time of Note DATE: 08/08/16 TIME: 11:48 Consult Date/Type/Reason Admit Date/Time Jul 31, 2016 at 19:59 Initial Consult Date 08/06/16 Type of Consultation: Cardiology Ordering Provider: BRYANT PERALTA Objective Vital Signs Date Time Temp Pulse Resp B/P Pulse Ox O2 Delivery O2 Flow Rate FiO2 08/08/16 11:10 98.6 104 20 154/70 95 08/08/16 08:00 Nasal Cannula 5.0 Intake and Output 08/07/16 08/07/16 08/08/16 15:00 23:00 07:00 Intake Total 400 ml 550 ml 150 ml Output Total 3400 ml Balance -3000 ml 550 ml 150 ml Results/Medications Result Diagram: 08/08/16 0548 08/08/16 0548 Results 24 hrs Laboratory Tests Test 08/07/16 13:26 08/07/16 16:09 08/07/16 21:46 08/08/16 02:06 Bedside Glucose 161 325 H 300 H 237 H Test 08/08/16 05:26 08/08/16 05:48 08/08/16 08:07 08/08/16 11:05 Bedside Glucose 225 H 217 292 H White Blood Count 18.1 #H Red Blood Count 3.56 L Hemoglobin 10.4 L Hematocrit 33.6 L Mean Corpuscular Volume 94.4 Mean Corpuscular Hemoglobin 29.2 Mean Corpuscular Hemoglobin Concent 31.0 L Red Cell Distribution Width 14.4 Platelet Count 93 L Mean Platelet Volume 11.6 H Neutrophils % 92.0 H Band Neutrophils % 3.0 Lymphocytes % 3.0 L Monocytes % 2.0 Eosinophils % Nucleated Red Blood Cells % 2.0 H Neutrophils # 16.7 H Lymphocytes # 0.5 L Monocytes # 0.4 Eosinophils # Erythrocyte Sedimentation Rate 90 H Sodium Level 143 Potassium Level 3.4 L Chloride Level 99 Carbon Dioxide Level 29 Anion Gap 18 #H Blood Urea Nitrogen 57 H Creatinine 4.18 H Glucose Level 258 H Calcium Level 8.6 Total Bilirubin 0.1 L Direct Bilirubin 0.00 Indirect Bilirubin 0.1 Aspartate Amino Transf (AST/SGOT) 11 L Alanine Aminotransferase (ALT/SGPT) 9 L Alkaline Phosphatase 117 Total Protein 6.4 Albumin 3.0 L Globulin 3.40 H Albumin/Globulin Ratio 0.88 Medications Current Medications Amlodipine Besylate (Norvasc) 5 mg DAILY PO Last administered on 08/08/16 09:38 ; Admin Dose 5 MG; Start 08/01/16 at 09:00 Atorvastatin Calcium (Lipitor) 40 mg HS PO Last administered on 08/07/16 22:23 ; Admin Dose 40 MG; Start 08/01/16 at 21:00 Calcitriol (Rocaltrol) 0.25 mcg DAILY PO Last administered on 08/08/16 09:38; Admin Dose 0.25 MCG; Start 08/01/16 at 09:00 Calcium/Vitamin D (Oyster Shell/ Vit-D (500/200)) 1 tab BID PO Last administered on 08/08/16 09:37; Admin Dose 1 TAB; Start 08/01/16 at 09:00 Hydralazine HCl (Apresoline) 50 mg Q8 PO Last administered on 08/08/16 05:33; Admin Dose 50 MG; Start 08/01/16 at 06:00 Metoprolol Tartrate (Lopressor) 25 mg BID PO Last administered on 08/08/16 09: 37; Admin Dose 25 MG; Start 08/01/16 at 09:00 Paroxetine HCl (Paxil) 10 mg DAILY PO Last administered on 08/08/16 09:38; Admin Dose 10 MG; Start 08/01/16 at 09:00 Acetaminophen (Tylenol Tab) 650 mg Q4H PRN PO PAIN AND OR ELEVATED TEMP; Start 08/01/16 at 00:30 Hydralazine HCl (Apresoline) 20 mg Q6H PRN IV ELEVATED BLOOD PRESSURE; Start at 00:30 Guaifenesin/ Dextromethorphan (Robitussin Dm Liquid Cup) 10 ml Q4H PRN PO COUGH Last administered on 08/01/16 00:35; Admin Dose 10 ML; Start 08/01/16 at 00:30 Heparin Sodium (Porcine) (Heparin (5000 Units/0.5 ml)) 5,000 unit BID SC Last administered on 08/04/16 08:55; Admin Dose 5,000 UNIT; Start 08/01/16 at 09:00 ; Status Future Hold Diagnostic Test (Pha) (Accu-Chek) 1 ea 02 XX Last administered on 08/08/16 02: 53; Admin Dose 1 EA; Start 08/01/16 at 02:00 Epoetin Braden (Epogen (Esrd)) 6,000 units MoWeFr@17 SC Last administered on 08/06 17:25; Admin Dose 6,000 UNITS; Start 08/02/16 at 17:00 Miscellaneous Information 1 ea NOTE XX ; Start 08/02/16 at 12:30 Glucose (Glutose) 15 gm Q15M PRN PO DECREASED GLUCOSE; Start 08/02/16 at 12:30 Glucose (Glutose) 22.5 gm Q15M PRN PO DECREASED GLUCOSE; Start 08/02/16 at 12: 30 Dextrose (D50w Syringe) 25 ml Q15M PRN IV DECREASED GLUCOSE; Start 08/02/16 at 12:30 Dextrose (D50w Syringe) 50 ml Q15M PRN IV DECREASED GLUCOSE; Start 08/02/16 at 12:30 Glucagon (Glucagen) 1 mg Q15M PRN IM DECREASED GLUCOSE; Start 08/02/16 at 12:30 Glucose (Glutose) 15 gm Q15M PRN BUCCAL DECREASED GLUCOSE; Start 08/02/16 at 12 :30 Linagliptin 5 mg 5 mg DAILY PO Last administered on 08/08/16 09:38; Admin Dose 5 MG; Start 08/04/16 at 20:00 Cefepime HCl (Maxipime 1gm/50 ml (Pmx)) 50 ml @ 100 mls/hr Q12 IVPB Last administered on 08/08/16 09:36; Admin Dose 100 MLS/HR; Start 08/06/16 at 21:00 Methylprednisolone Sodium Succinate (Solu-Medrol) 20 mg Q8 IV Last administered on 08/08/16 05:29; Admin Dose 20 MG; Start 08/07/16 at 14:00 Insulin Human NPH (Humulin N) 26 unit Q8 SC ; Start 08/08/16 at 14:00 Salmeterol Xinafoate/ Fluticasone (Advair 250/50 Diskus) 1 inh BID INH ; Start 08/08/16 at 11:00 Montelukast Sodium (Singulair) 10 mg HS PO ; Start 08/08/16 at 21:00 Tiotropium [place] (Spiriva) 1 inh DAILY INH ; Start 08/08/16 at 11:00 Assessment/Plan Chief Complaint/Hosp Course Patient is 85 year old F with PMH of HTN, HLD, CKD now presentezd with SOB and ESRD was started on HD. She already has been planning for Stage IV CKD and had fistula done already. Pt does have some SOB. significant Leg edema. Likely realted to CKD and Diastolic HF. LVEF is nl. Problems: Additional Assessment/Plan Pt with increasing WBC right lung PNA on CT on Abx Pulm f/u HD per nephro Cardiac carlson pt will need further work up will get out pt f/u SIERRA GARCIA MD Aug 08, 2016 11:48
[2016-08-08] MEDS: SALMETEROL/FLUTICASONE 250/50 INHA INH SCH ×2 (13:48→22:00)
[2016-08-08] MEDS: TIOTROPIUM 18 MCG CAPSULE INHA DEV INH SCH (13:48)
--- NOTE | 2016-08-08 17:30 | CONS ---
Date/Time of Note Date/Time of Note DATE: 08/08/16 TIME: 17:29 Assessment/Plan Assessment/Plan Chief Complaint/Hosp Course IMPRESSION: 1. End-stage renal disease stage V. 2. Fluid overload.better 3. Pulmonary edema.better 4. Anemia of chronic kidney disease. 5. History of diabetes mellitus. 6. 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 7. AV fistula on the left upper extremity. 8 pneumonia plan continue hd more often Problems: Consultation Date/Type/Reason Admit Date/Time Jul 31, 2016 at 19:59 Initial Consult Date 08/01/16 Type of Consultation: renal Referring Provider: BRYANT PERALTA 24 HR Interval Summary Constitutional: other (sob better) Exam/Review of Systems Vital Signs Vitals Vital Signs Date Time Temp Pulse Resp B/P Pulse Ox O2 Delivery O2 Flow Rate FiO2 08/08/16 16:05 106 08/08/16 15:30 98.2 18 165/72 91 08/08/16 14:15 6.0 08/08/16 08:00 Nasal Cannula Intake and Output 08/07/16 08/07/16 08/08/16 15:00 23:00 07:00 Intake Total 400 ml 550 ml 150 ml Output Total 3400 ml Balance -3000 ml 550 ml 150 ml Exam Neck: supple Respiratory: diminished breath sounds Cardiovascular: regular rate and rhythm Gastrointestinal: soft Genitourinary - Female: nl adnexae Musculoskeletal: nl extremities to inspection Extremities: edema (+) Results Result Diagram: 08/08/16 0548 08/08/16 0548 Results 24 hrs Laboratory Tests Test 08/07/16 21:46 08/08/16 02:06 08/08/16 05:26 08/08/16 05:48 Bedside Glucose 300 H 237 H 225 H White Blood Count 18.1 #H Red Blood Count 3.56 L Hemoglobin 10.4 L Hematocrit 33.6 L Mean Corpuscular Volume 94.4 Mean Corpuscular Hemoglobin 29.2 Mean Corpuscular Hemoglobin Concent 31.0 L Red Cell Distribution Width 14.4 Platelet Count 93 L Mean Platelet Volume 11.6 H Neutrophils % 92.0 H Band Neutrophils % 3.0 Lymphocytes % 3.0 L Monocytes % 2.0 Eosinophils % Nucleated Red Blood Cells % 2.0 H Neutrophils # 16.7 H Lymphocytes # 0.5 L Monocytes # 0.4 Eosinophils # Erythrocyte Sedimentation Rate 90 H Sodium Level 143 Potassium Level 3.4 L Chloride Level 99 Carbon Dioxide Level 29 Anion Gap 18 #H Blood Urea Nitrogen 57 H Creatinine 4.18 H Glucose Level 258 H Calcium Level 8.6 Total Bilirubin 0.1 L Direct Bilirubin 0.00 Indirect Bilirubin 0.1 Aspartate Amino Transf (AST/SGOT) 11 L Alanine Aminotransferase (ALT/SGPT) 9 L Alkaline Phosphatase 117 Total Protein 6.4 Albumin 3.0 L Globulin 3.40 H Albumin/Globulin Ratio 0.88 Test 08/08/16 08:07 08/08/16 11:05 Bedside Glucose 217 292 H Medications Medications Current Medications Amlodipine Besylate (Norvasc) 5 mg DAILY PO Last administered on 08/08/16 09:38 ; Admin Dose 5 MG; Start 08/01/16 at 09:00 Atorvastatin Calcium (Lipitor) 40 mg HS PO Last administered on 08/07/16 22:23 ; Admin Dose 40 MG; Start 08/01/16 at 21:00 Calcitriol (Rocaltrol) 0.25 mcg DAILY PO Last administered on 08/08/16 09:38; Admin Dose 0.25 MCG; Start 08/01/16 at 09:00 Calcium/Vitamin D (Oyster Shell/ Vit-D (500/200)) 1 tab BID PO Last administered on 08/08/16 09:37; Admin Dose 1 TAB; Start 08/01/16 at 09:00 Hydralazine HCl (Apresoline) 50 mg Q8 PO Last administered on 08/08/16 13:49; Admin Dose 50 MG; Start 08/01/16 at 06:00 Metoprolol Tartrate (Lopressor) 25 mg BID PO Last administered on 08/08/16 09: 37; Admin Dose 25 MG; Start 08/01/16 at 09:00 Paroxetine HCl (Paxil) 10 mg DAILY PO Last administered on 08/08/16 09:38; Admin Dose 10 MG; Start 08/01/16 at 09:00 Acetaminophen (Tylenol Tab) 650 mg Q4H PRN PO PAIN AND OR ELEVATED TEMP; Start 08/01/16 at 00:30 Hydralazine HCl (Apresoline) 20 mg Q6H PRN IV ELEVATED BLOOD PRESSURE; Start at 00:30 Guaifenesin/ Dextromethorphan (Robitussin Dm Liquid Cup) 10 ml Q4H PRN PO COUGH Last administered on 08/01/16 00:35; Admin Dose 10 ML; Start 08/01/16 at 00:30 Heparin Sodium (Porcine) (Heparin (5000 Units/0.5 ml)) 5,000 unit BID SC Last administered on 08/04/16 08:55; Admin Dose 5,000 UNIT; Start 08/01/16 at 09:00 ; Status Future Hold Diagnostic Test (Pha) (Accu-Chek) 1 ea 02 XX Last administered on 08/08/16 02: 53; Admin Dose 1 EA; Start 08/01/16 at 02:00 Epoetin Braden (Epogen (Esrd)) 6,000 units MoWeFr@17 SC Last administered on 08/06 17:25; Admin Dose 6,000 UNITS; Start 08/02/16 at 17:00 Miscellaneous Information 1 ea NOTE XX ; Start 08/02/16 at 12:30 Glucose (Glutose) 15 gm Q15M PRN PO DECREASED GLUCOSE; Start 08/02/16 at 12:30 Glucose (Glutose) 22.5 gm Q15M PRN PO DECREASED GLUCOSE; Start 08/02/16 at 12: 30 Dextrose (D50w Syringe) 25 ml Q15M PRN IV DECREASED GLUCOSE; Start 08/02/16 at 12:30 Dextrose (D50w Syringe) 50 ml Q15M PRN IV DECREASED GLUCOSE; Start 08/02/16 at 12:30 Glucagon (Glucagen) 1 mg Q15M PRN IM DECREASED GLUCOSE; Start 08/02/16 at 12:30 Glucose (Glutose) 15 gm Q15M PRN BUCCAL DECREASED GLUCOSE; Start 08/02/16 at 12 :30 Linagliptin 5 mg 5 mg DAILY PO Last administered on 08/08/16 09:38; Admin Dose 5 MG; Start 08/04/16 at 20:00 Cefepime HCl (Maxipime 1gm/50 ml (Pmx)) 50 ml @ 100 mls/hr Q12 IVPB Last administered on 08/08/16 09:36; Admin Dose 100 MLS/HR; Start 08/06/16 at 21:00 Methylprednisolone Sodium Succinate (Solu-Medrol) 20 mg Q8 IV Last administered on 08/08/16 13:50; Admin Dose 20 MG; Start 08/07/16 at 14:00 Insulin Human NPH (Humulin N) 26 unit Q8 SC Last administered on 08/08/16 13:55 ; Admin Dose 26 UNIT; Start 08/08/16 at 14:00 Salmeterol Xinafoate/ Fluticasone (Advair 250/50 Diskus) 1 inh BID INH Last administered on 08/08/16 13:48; Admin Dose 1 INH; Start 08/08/16 at 11:00 Montelukast Sodium (Singulair) 10 mg HS PO ; Start 08/08/16 at 21:00 Tiotropium [place] (Spiriva) 1 inh DAILY INH Last administered on 08/08/16 13: 48; Admin Dose 1 INH; Start 08/08/16 at 11:00 DAT OLSON MD Aug 08, 2016 17:30
[2016-08-08] MEDS: ATORVASTATIN 40 MG TAB PO SCH (20:43)
[2016-08-08] MEDS: MONTELUKAST 10 MG TAB PO SCH (20:44)
[2016-08-09] VITALS (23 sets, daily range): BP systolic 87–179; BP diastolic 40–76; PULSE 81–156; RESP 16–20
[2016-08-09] MEDS: ALBUTEROL/IPRATROPIUM (NEB) 3 ML AMP HHN SCH ×4 (01:27→19:53)
[2016-08-09] MEDS: ACCU-CHEK XX SCH (02:20)
[2016-08-09] MEDS: hydrALAzine 20 MG INJ IV PRN (03:50)
[2016-08-09] MEDS: METHYLPREDNISOLONE 40 MG INJ IV SCH ×3 (05:16→22:14)
[2016-08-09] MEDS: FUROSEMIDE 40 MG INJ IV SCH ×2 (05:17→17:21)
[2016-08-09] MEDS: NPH, HUMAN INSULIN ISOPHANE 3ML VIAL SC SCH ×3 (05:21→22:20)
[2016-08-09 07:08] LABS: ADD SCAN DIFF NO
[2016-08-09 07:13] LABS: ABNORMAL IP MESSAGE 1; BASOPHILS % 0.1 % (0.0-2.0); HEMATOCRIT 32.6 % (37.0-47.0); HEMOGLOBIN 10.1 g/dl (12.0-16.0); LYMPHOCYTES # 0.1 10^3/ul (0.8-2.9); LYMPHOCYTES % 0.7 % (15.0-51.0); MEAN CORPUSCULAR HEMOGLOBIN 28.9 pg (29.0-33.0); MEAN CORPUSCULAR VOLUME 93.4 fl (82.0-101.0); MEAN PLATELET VOLUME 11.6 fl (7.4-10.4); MONOCYTE # 0.7 10^3/ul (0.3-0.9); MONOCYTES % 4.1 % (0.0-11.0); NEUTROPHIL # 16.6 10^3/ul (1.6-7.5); NUCLEATED RED BLOOD CELLS # 0.2 10^3/ul (0.0-0.0); NUCLEATED RED BLOOD CELLS% 1.2 /100WBC (0.0-0.0); PLATELET COUNT 91 10^3/UL (140-415); RED BLOOD COUNT 3.49 10^6/ul (4.20-5.40); RED CELL DISTRIBUTION WIDTH 14.6 % (11.5-14.5); WHITE BLOOD COUNT 17.8 10^3/ul (4.8-10.8)
[2016-08-09 07:14] LABS: NEUTROPHILS % 93.6 % (39.0-77.0)
[2016-08-09 07:34] LABS: POTASSIUM 4.2 mmol/L (3.5-5.1)
[2016-08-09 07:37] LABS: CREATININE 5.16 mg/dl (0.44-1.00)
[2016-08-09 07:38] LABS: CALCIUM 9.2 mg/dl (8.4-10.2)
[2016-08-09] MEDS: LINAGLIPTIN 5 MG TABLET PO SCH (08:04)
[2016-08-09] MEDS: CALCIUM/VITAMIN D (500/200) TAB PO SCH ×2 (08:04→22:13)
[2016-08-09] MEDS: CALCITRIOL 0.25 MCG CAP PO SCH (08:04)
[2016-08-09] MEDS: TIOTROPIUM 18 MCG CAPSULE INHA DEV INH SCH (08:05)
[2016-08-09] MEDS: CEFEPIME 1GM/50 ML (PMX) 50 ML IVPB SCH ×2 (08:05→22:12)
[2016-08-09] MEDS: PAROXETINE 10 MG TAB PO SCH (08:05)
[2016-08-09] MEDS: METOPROLOL 25 MG TAB PO SCH ×2 (08:05→22:28)
[2016-08-09] MEDS: AMLODIPINE 5 MG TAB PO SCH (08:05)
[2016-08-09] MEDS: SALMETEROL/FLUTICASONE 250/50 INHA INH SCH ×2 (08:06→22:24)
[2016-08-09] MEDS: INSULIN ASPART [NOVOLOG] 3 ML PEN SC SCH ×4 (08:14→21:00)
[2016-08-09] MEDS: DILTIAZEM-D5W 125MG/125ML DRIP 125 ML IV SCH (12:34)
[2016-08-09] MEDS ORDERED: DILTIAZEM 120 MG TAB PO SCH (13:00)
--- NOTE | 2016-08-09 13:33 | CONS ---
Date/Time of Note Date/Time of Note DATE: 08/09/16 TIME: 13:31 Assessment/Plan Assessment/Plan Additional Assessment/Plan Assessment recommendations; 1. Patient admitted for acute renal failure now getting hemodialysis. 2. Some element of fluid overload. 3. Acute bronchitis/COPD exacerbation. 4. Hypertension and diabetes. Continue current treatment. Consultation Date/Type/Reason Admit Date/Time Jul 31, 2016 at 19:59 Initial Consult Date 08/06/16 Type of Consultation: Pulmonary Referring Provider: BRYANT PERALTA 24 HR Interval Summary Free Text/Dictation Patient complaining of chest congestion and coughing. She is scheduled for hemodialysis session this afternoon. Denies any fever chills chest pain. General exam; elderly lady, currently in no distress awake and alert. Exam/Review of Systems Vital Signs Vitals Vital Signs Date Time Temp Pulse Resp B/P Pulse Ox O2 Delivery O2 Flow Rate FiO2 08/09/16 12:08 115 08/09/16 12:00 98.6 20 148/72 92 08/09/16 08:30 Nasal Cannula 5.0 Intake and Output 08/08/16 08/08/16 08/09/16 15:00 23:00 07:00 Intake Total 170 ml Balance 170 ml Exam HEENT exam is; supple neck, positive JVD. No lymphadenopathy. Midline trachea. No thyromegaly. Patient bilateral intraocular lens implants. She is edentulous and wears dentures. No neck bruits. Chest examination PR: Diminished but clear vessel. S1-S2 audible, no murmurs. Regular rhythm. Abdomen examination; soft, no organomegaly. Bowel sounds audible. Nontender. Extremity exam is; trace edema. Pulses 1+ bilaterally. CHASER TAR exam is; no focal deficit. Results Result Diagram: 08/09/16 0620 08/09/16 0620 Results 24 hrs Laboratory Tests Test 08/08/16 17:40 08/08/16 21:41 08/09/16 04:58 08/09/16 06:20 Bedside Glucose 186 216 169 White Blood Count 17.8 H Red Blood Count 3.49 L Hemoglobin 10.1 L Hematocrit 32.6 L Mean Corpuscular Volume 93.4 Mean Corpuscular Hemoglobin 28.9 L Mean Corpuscular Hemoglobin Concent 31.0 L Red Cell Distribution Width 14.6 H Platelet Count 91 L Mean Platelet Volume 11.6 H Neutrophils % 93.6 H Lymphocytes % 0.7 L Monocytes % 4.1 Eosinophils % 0.0 Basophils % 0.1 Nucleated Red Blood Cells % 1.2 H Neutrophils # 16.6 H Lymphocytes # 0.1 L Monocytes # 0.7 Eosinophils # 0.0 Basophils # 0.0 Nucleated Red Blood Cells # 0.2 H Sodium Level 136 Potassium Level 4.2 Chloride Level 98 Carbon Dioxide Level 25 Anion Gap 17 H Blood Urea Nitrogen 89 #H Creatinine 5.16 H Glucose Level 172 Calcium Level 9.2 Test 08/09/16 08:00 08/09/16 12:03 Bedside Glucose 152 190 Medications Medications Current Medications Amlodipine Besylate (Norvasc) 5 mg DAILY PO Last administered on 08/09/16 08:05 ; Admin Dose 5 MG; Start 08/01/16 at 09:00 Atorvastatin Calcium (Lipitor) 40 mg HS PO Last administered on 08/08/16 20:43 ; Admin Dose 40 MG; Start 08/01/16 at 21:00 Calcitriol (Rocaltrol) 0.25 mcg DAILY PO Last administered on 08/09/16 08:04; Admin Dose 0.25 MCG; Start 08/01/16 at 09:00 Calcium/Vitamin D (Oyster Shell/ Vit-D (500/200)) 1 tab BID PO Last administered on 08/09/16 08:04; Admin Dose 1 TAB; Start 08/01/16 at 09:00 Hydralazine HCl (Apresoline) 50 mg Q8 PO Last administered on 08/08/16 22:00; Admin Dose 50 MG; Start 08/01/16 at 06:00 Metoprolol Tartrate (Lopressor) 25 mg BID PO Last administered on 08/09/16 08: 05; Admin Dose 25 MG; Start 08/01/16 at 09:00 Paroxetine HCl (Paxil) 10 mg DAILY PO Last administered on 08/09/16 08:05; Admin Dose 10 MG; Start 08/01/16 at 09:00 Acetaminophen (Tylenol Tab) 650 mg Q4H PRN PO PAIN AND OR ELEVATED TEMP; Start 08/01/16 at 00:30 Hydralazine HCl (Apresoline) 20 mg Q6H PRN IV ELEVATED BLOOD PRESSURE Last administered on 08/09/16 03:50; Admin Dose 20 MG; Start 08/01/16 at 00:30 Guaifenesin/ Dextromethorphan (Robitussin Dm Liquid Cup) 10 ml Q4H PRN PO COUGH Last administered on 08/01/16 00:35; Admin Dose 10 ML; Start 08/01/16 at 00:30 Heparin Sodium (Porcine) (Heparin (5000 Units/0.5 ml)) 5,000 unit BID SC Last administered on 08/04/16 08:55; Admin Dose 5,000 UNIT; Start 08/01/16 at 09:00 ; Status Future Hold Diagnostic Test (Pha) (Accu-Chek) 1 ea 02 XX Last administered on 08/09/16 02: 20; Admin Dose 1 EA; Start 08/01/16 at 02:00 Epoetin [place]aden (Epogen (Esrd)) 6,000 units MoWeFr@17 SC Last administered on 08/06 17:25; Admin Dose 6,000 UNITS; Start 08/02/16 at 17:00 Miscellaneous Information 1 ea NOTE XX ; Start 08/02/16 at 12:30 Glucose (Glutose) 15 gm Q15M PRN PO DECREASED GLUCOSE; Start 08/02/16 at 12:30 Glucose (Glutose) 22.5 gm Q15M PRN PO DECREASED GLUCOSE; Start 08/02/16 at 12: 30 Dextrose (D50w Syringe) 25 ml Q15M PRN IV DECREASED GLUCOSE; Start 08/02/16 at 12:30 Dextrose (D50w Syringe) 50 ml Q15M PRN IV DECREASED GLUCOSE; Start 08/02/16 at 12:30 Glucagon (Glucagen) 1 mg Q15M PRN IM DECREASED GLUCOSE; Start 08/02/16 at 12:30 Glucose (Glutose) 15 gm Q15M PRN BUCCAL DECREASED GLUCOSE; Start 08/02/16 at 12 :30 Linagliptin 5 mg 5 mg DAILY PO Last administered on 08/09/16 08:04; Admin Dose 5 MG; Start 08/04/16 at 20:00 Cefepime HCl (Maxipime 1gm/50 ml (Pmx)) 50 ml @ 100 mls/hr Q12 IVPB Last administered on 08/09/16 08:05; Admin Dose 100 MLS/HR; Start 08/06/16 at 21:00 Methylprednisolone Sodium Succinate (Solu-Medrol) 20 mg Q8 IV Last administered on 08/09/16 05:16; Admin Dose 20 MG; Start 08/07/16 at 14:00 Salmeterol Xinafoate/ Fluticasone (Advair 250/50 Diskus) 1 inh BID INH Last administered on 08/09/16 08:06; Admin Dose 1 INH; Start 08/08/16 at 11:00 Montelukast Sodium (Singulair) 10 mg HS PO Last administered on 08/08/16 20:44 ; Admin Dose 10 MG; Start 08/08/16 at 21:00 Tiotropium [place] 1 inh 1 inh DAILY INH Last administered on 08/09/16 08:05; Admin Dose 1 INH; Start 08/08/16 at 11:00 Diltiazem HCl (Cardizem-D5W 125 Mg/125 ml Drip) 125 ml @ 5 mls/hr Q24H IV Last administered on 08/09/16 12:34; Admin Dose 5 MLS/HR; Start 08/09/16 at 12:00 Insulin Human NPH (Humulin N) 29 unit Q8 SC ; Start 08/09/16 at 14:00 Diltiazem HCl (Cardizem Cd) 120 mg DAILY PO ; Start 08/09/16 at 13:06 KOFI HUERTA Aug 09, 2016 13:33
[2016-08-09] MEDS: DILTIAZEM (CD) 120 MG CAP PO SCH (13:37)
[2016-08-09] MEDS: ACETAMINOPHEN 325 MG TAB PO PRN (13:51)
--- NOTE | 2016-08-09 16:19 | PN ---
Date/Time of Note Date/Time of Note DATE: 08/09/16 TIME: 16:09 Assessment/Plan VTE Prophylaxis VTE Prophylaxis Intervention: SCD's Lines/Catheters IV [facility]ter Type (from [facility]): [facility] Urinary Cath still in place: No Assessment/Plan Chief Complaint/Hosp Course Assessment and plan: -Acute respiratory insufficiency secondary to pneumonia and COPD exacerbation. - Right-sided pneumonia per CT scan, continue cefepime. - A-fib with RVR, continue Cardizem, patient is followed by Dr. Stuart in cardiology. - COPD exacerbation, continue breathing treatment. Dr. Natarajan is following in pulmonology consultation - End-stage renal disease stage V. Dr. Leon is following in nephrology consultation. Continue to hemodialysis via right femoral hemodialysis catheter. - Pulmonary edema. Continue diuresis. - Anemia of chronic kidney disease. Continue Epogen. - Diabetes mellitus type [address] Garcia is following an endocrinology consultation. Continue NPH. - Hypertension, continue Norvasc. -Left upper extremity AV fistula, non-matured -Status post right hemodialysis non-tunneled catheter placement by Dr. Manning on 08/03. S/p R IJ tunneled hemodialysis catheter placement. Further recommendations based on clinical course. Plan of care discussed with Dr. Flores Problems: Subjective 24 Hr Interval Summary Free Text/Dictation Patient continues to be on supplemental oxygen, complains of shortness of breath on exertion, continues to have diminished air entry bilaterally. Patient currently continues to be in atrial fibrillation rate is not controlled. Patient's continues on IV steroids. Denies any chest pain denies nausea vomiting. Exam/Review of Systems Vital Signs Vitals Vital Signs Date Time Temp Pulse Resp B/P Pulse Ox O2 Delivery O2 Flow Rate FiO2 08/09/16 15:48 98.3 117 20 131/72 96 08/09/16 14:17 Simple Mask 10.0 Intake and Output 08/08/16 08/08/16 08/09/16 15:00 23:00 07:00 Intake Total 170 ml Balance 170 ml Exam Constitutional: alert, oriented Psych: no complaints Head: atraumatic, normocephalic Eyes: nl conjunctiva ENMT: nl external ears & nose, nl lips & teeth Neck: non-tender, supple Respiratory: Rhonchi bilaterally Cardiovascular: nl pulses, regular rate and rhythm Gastrointestinal: non-tender, soft Musculoskeletal: nl extremities to inspection Extremities: normal pulses 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: SOFTWARE DEVELOPMENT ADVISOR II-XII intact Additional Comments Left upper extremities with AV fistula with palpable thrill and audible bruit Right IJ permacath Results Result Diagram: 08/09/16 0620 08/09/16 0620 Results 24 hrs Laboratory Tests Test 08/08/16 17:40 08/08/16 21:41 08/09/16 04:58 08/09/16 06:20 Bedside Glucose 186 216 169 White Blood Count 17.8 H Red Blood Count 3.49 L Hemoglobin 10.1 L Hematocrit 32.6 L Mean Corpuscular Volume 93.4 Mean Corpuscular Hemoglobin 28.9 L Mean Corpuscular Hemoglobin Concent 31.0 L Red Cell Distribution Width 14.6 H Platelet Count 91 L Mean Platelet Volume 11.6 H Neutrophils % 93.6 H Lymphocytes % 0.7 L Monocytes % 4.1 Eosinophils % 0.0 Basophils % 0.1 Nucleated Red Blood Cells % 1.2 H Neutrophils # 16.6 H Lymphocytes # 0.1 L Monocytes # 0.7 Eosinophils # 0.0 Basophils # 0.0 Nucleated Red Blood Cells # 0.2 H Sodium Level 136 Potassium Level 4.2 Chloride Level 98 Carbon Dioxide Level 25 Anion Gap 17 H Blood Urea Nitrogen 89 #H Creatinine 5.16 H Glucose Level 172 Calcium Level 9.2 Test 08/09/16 08:00 08/09/16 12:03 Bedside Glucose 152 190 Medications Medications Current Medications Amlodipine Besylate (Norvasc) 5 mg DAILY PO Last administered on 08/09/16 08:05 ; Admin Dose 5 MG; Start 08/01/16 at 09:00 Atorvastatin Calcium (Lipitor) 40 mg HS PO Last administered on 08/08/16 20:43 ; Admin Dose 40 MG; Start 08/01/16 at 21:00 Calcitriol (Rocaltrol) 0.25 mcg DAILY PO Last administered on 08/09/16 08:04; Admin Dose 0.25 MCG; Start 08/01/16 at 09:00 Calcium/Vitamin D (Oyster Shell/ Vit-D (500/200)) 1 tab BID PO Last administered on 08/09/16 08:04; Admin Dose 1 TAB; Start 08/01/16 at 09:00 Hydralazine HCl (Apresoline) 50 mg Q8 PO Last administered on 08/08/16 22:00; Admin Dose 50 MG; Start 08/01/16 at 06:00 Metoprolol Tartrate (Lopressor) 25 mg BID PO Last administered on 08/09/16 08: 05; Admin Dose 25 MG; Start 08/01/16 at 09:00 Paroxetine HCl (Paxil) 10 mg DAILY PO Last administered on 08/09/16 08:05; Admin Dose 10 MG; Start 08/01/16 at 09:00 Acetaminophen (Tylenol Tab) 650 mg Q4H PRN PO PAIN AND OR ELEVATED TEMP Last administered on 08/09/16 13:51; Admin Dose 650 MG; Start 08/01/16 at 00:30 Hydralazine HCl (Apresoline) 20 mg Q6H PRN IV ELEVATED BLOOD PRESSURE Last administered on 08/09/16 03:50; Admin Dose 20 MG; Start 08/01/16 at 00:30 Guaifenesin/ Dextromethorphan (Robitussin Dm Liquid Cup) 10 ml Q4H PRN PO COUGH Last administered on 08/01/16 00:35; Admin Dose 10 ML; Start 08/01/16 at 00:30 Heparin Sodium (Porcine) (Heparin (5000 Units/0.5 ml)) 5,000 unit BID SC Last administered on 08/04/16 08:55; Admin Dose 5,000 UNIT; Start 08/01/16 at 09:00 ; Status Future Hold Diagnostic Test (Pha) (Accu-Chek) 1 ea 02 XX Last administered on 08/09/16 02: 20; Admin Dose 1 EA; Start 08/01/16 at 02:00 Epoetin [place]aden (Epogen (Esrd)) 6,000 units MoWeFr@17 SC Last administered on 08/06 17:25; Admin Dose 6,000 UNITS; Start 08/02/16 at 17:00 Miscellaneous Information 1 ea NOTE XX ; Start 08/02/16 at 12:30 Glucose (Glutose) 15 gm Q15M PRN PO DECREASED GLUCOSE; Start 08/02/16 at 12:30 Glucose (Glutose) 22.5 gm Q15M PRN PO DECREASED GLUCOSE; Start 08/02/16 at 12: 30 Dextrose (D50w Syringe) 25 ml Q15M PRN IV DECREASED GLUCOSE; Start 08/02/16 at 12:30 Dextrose (D50w Syringe) 50 ml Q15M PRN IV DECREASED GLUCOSE; Start 08/02/16 at 12:30 Glucagon (Glucagen) 1 mg Q15M PRN IM DECREASED GLUCOSE; Start 08/02/16 at 12:30 Glucose (Glutose) 15 gm Q15M PRN BUCCAL DECREASED GLUCOSE; Start 08/02/16 at 12 :30 Linagliptin 5 mg 5 mg DAILY PO Last administered on 08/09/16 08:04; Admin Dose 5 MG; Start 08/04/16 at 20:00 Cefepime HCl (Maxipime 1gm/50 ml (Pmx)) 50 ml @ 100 mls/hr Q12 IVPB Last administered on 08/09/16 08:05; Admin Dose 100 MLS/HR; Start 08/06/16 at 21:00 Methylprednisolone Sodium Succinate (Solu-Medrol) 20 mg Q8 IV Last administered on 08/09/16 13:37; Admin Dose 20 MG; Start 08/07/16 at 14:00 Salmeterol Xinafoate/ Fluticasone (Advair 250/50 Diskus) 1 inh BID INH Last administered on 08/09/16 08:06; Admin Dose 1 INH; Start 08/08/16 at 11:00 Montelukast Sodium (Singulair) 10 mg HS PO Last administered on 08/08/16 20:44 ; Admin Dose 10 MG; Start 08/08/16 at 21:00 Tiotropium [place] 1 inh 1 inh DAILY INH Last administered on 08/09/16 08:05; Admin Dose 1 INH; Start 08/08/16 at 11:00 Diltiazem HCl (Cardizem-D5W 125 Mg/125 ml Drip) 125 ml @ 5 mls/hr Q24H IV Last administered on 08/09/16 12:34; Admin Dose 5 MLS/HR; Start 08/09/16 at 12:00 Insulin Human NPH (Humulin N) 29 unit Q8 SC Last administered on 08/09/16 13:50 ; Admin Dose 29 UNIT; Start 08/09/16 at 14:00 Diltiazem HCl (Cardizem Cd) 120 mg DAILY PO Last administered on 08/09/16 13:37 ; Admin Dose 120 MG; Start 08/09/16 at 13:06 BRYANT PERALTA Aug 09, 2016 16:19
--- NOTE | 2016-08-09 17:37 | CONS ---
Date/Time of Note Date/Time of Note DATE: 08/09/16 TIME: 17:34 Assessment/Plan Assessment/Plan Problems: (1) Type 2 diabetes mellitus with hyperglycemia Status: Acute Comment: Some improvement in steroidogenic hyperglycemia w/ NPH. Still not quite at goal. Increase NPH from 26 q8 to 29 q8 and reeval tomorrow. Qualifiers: Diabetes mellitus correction insulin use: without terminal gauger supervisor use Qualified Code: E11.65 - Type 2 diabetes mellitus with hyperglycemia, without long-term current use of insulin Consultation Date/Type/Reason Admit Date/Time Jul 31, 2016 at 19:59 Initial Consult Date 08/06/16 Type of Consultation: Endocrinology Reason for Consultation T2DM out of control (OOC) Referring Provider: BRYANT PERALTA 24 HR Interval Summary Constitutional: requiring O2 Detailed Summary Respiratory: cough, shortness of breath, sputum Cardiovascular: no complaints Gastrointestinal: no complaints Genitourinary: no complaints Musculoskeletal: no complaints Neurologic: no complaints Exam/Review of Systems Vital Signs Vitals VS - Last 72 Hours, by Label Date Time Temp Pulse Resp B/P Pulse Ox O2 Delivery O2 Flow Rate FiO2 08/09/16 16:19 120 08/09/16 15:48 98.3 117 20 131/72 96 08/09/16 14:17 134 18 94 Simple Mask 10.0 08/09/16 12:08 115 08/09/16 12:00 98.6 114 20 148/72 92 08/09/16 08:30 Nasal Cannula 5.0 08/09/16 08:21 133 08/09/16 08:10 Simple Mask 10.0 08/09/16 07:40 136 18 99 Simple Mask 10.0 08/09/16 07:40 10.0 08/09/16 07:30 98.0 115 20 120/55 98 08/09/16 05:30 130 120/57 08/09/16 04:14 98.1 103 16 179/76 90 08/09/16 04:07 118 08/09/16 03:36 6.0 08/09/16 03:33 156 08/09/16 01:27 109 18 93 Nasal Cannula 6.0 08/09/16 00:19 114 08/09/16 00:03 97.9 115 16 160/72 90 08/08/16 20:28 106 08/08/16 20:08 112 18 91 Nasal Cannula 6.0 08/08/16 20:07 6.0 08/08/16 20:00 Nasal Cannula 5.0 08/08/16 20:00 97.9 98 17 133/73 93 08/08/16 16:05 106 08/08/16 15:30 98.2 117 18 165/72 91 08/08/16 14:15 6.0 08/08/16 14:12 93 20 95 6.0 08/08/16 12:02 96 08/08/16 11:10 98.6 104 20 154/70 95 08/08/16 08:20 96 08/08/16 08:00 Nasal Cannula 5.0 08/08/16 07:54 98.6 104 20 135/60 98 08/08/16 07:33 100 22 96 Nasal Cannula 6.0 08/08/16 04:25 104 08/08/16 03:47 98.3 84 20 139/69 96 08/08/16 01:05 89 20 93 Nasal Cannula 6.0 08/08/16 00:15 98.2 98 18 131/61 94 08/08/16 00:09 94 08/07/16 20:14 95 08/07/16 20:05 98.3 95 18 138/63 94 08/07/16 20:00 Nasal Cannula 5.0 08/07/16 19:39 6.0 08/07/16 19:39 92 18 93 Nasal Cannula 6.0 08/07/16 16:07 90 08/07/16 15:53 98.2 99 20 127/61 92 08/07/16 14:53 93 6.0 08/07/16 14:51 88 22 93 Nasal Cannula 6.0 08/07/16 13:21 98.5 97 20 139/63 95 08/07/16 12:05 96 08/07/16 11:35 98.3 94 20 119/58 96 08/07/16 10:15 89 16 08/07/16 10:15 94 08/07/16 09:45 90 08/07/16 09:34 4.0 08/07/16 09:15 92 08/07/16 08:45 89 08/07/16 08:27 Nasal Cannula 5.0 08/07/16 08:15 84 08/07/16 08:08 88 4/1/17 07:45 85 08/07/16 07:15 76 17 08/07/16 07:15 85 08/07/16 07:14 98.1 94 20 130/58 95 08/07/16 04:02 98 08/07/16 04:00 98.2 96 18 120/59 91 08/07/16 02:59 4.0 08/07/16 02:59 71 21 94 Nasal Cannula 4.0 08/07/16 00:24 97.5 96 18 119/56 96 08/07/16 00:03 98 08/06/16 20:25 70 20 08/06/16 20:02 88 08/06/16 20:00 Nasal Cannula 4.0 08/06/16 20:00 69 26 97 Nasal Cannula 4.0 08/06/16 20:00 97 4.0 08/06/16 19:05 97.8 88 18 117/56 92 08/06/16 18:41 94 08/06/16 18:24 97.7 96 20 133/62 90 08/06/16 18:23 94 08/06/16 18:00 69 21 Vital Signs Date Time Temp Pulse Resp B/P Pulse Ox O2 Delivery O2 Flow Rate FiO2 08/09/16 16:19 120 08/09/16 15:48 98.3 20 131/72 96 08/09/16 14:17 Simple Mask 10.0 Intake and Output 08/08/16 08/08/16 08/09/16 15:00 23:00 07:00 Intake Total 170 ml Balance 170 ml Exam Constitutional: alert, obese, oriented Psych: nl mood/affect, no complaints Respiratory: crackles/rales (improved vs. 3 days ago), wheezing (louder vs. 3 days ago) Cardiovascular: nl pulses, regular rate and rhythm, No edema, No murmurs/extra sounds, No rub Gastrointestinal: bowel sounds, nl liver, spleen, non-tender, soft, No mass, No rebound or guarding Musculoskeletal: nl extremities to inspection Extremities: normal pulses, No clubbing, No cyanosis, No edema 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: BOILER OPERATOR HELPER II-XII intact, nl mental status, nl speech, nl strength Additional Comments Bedside Glucose - 72 Hours Test 08/06/16 17:45 08/06/16 21:55 08/06/16 23:34 08/07/16 02:47 Bedside Glucose 430mg/dL (70-220) *H 211mg/dL (70-220) 221mg/dL (70-220) H 162mg/dL (70-220) Test 08/07/16 05:47 08/07/16 08:31 08/07/16 13:26 08/07/16 16:09 Bedside Glucose 159mg/dL (70-220) 146mg/dL (70-220) 161mg/dL (70-220) 325mg/dL (70-220) H Test 08/07/16 21:46 08/08/16 02:06 08/08/16 05:26 08/08/16 08:07 Bedside Glucose 300mg/dL (70-220) H 237mg/dL (70-220) H 225mg/dL (70-220) H 217mg/dL (70-220) Test 08/08/16 11:05 08/08/16 17:40 08/08/16 21:41 08/09/16 04:58 Bedside Glucose 292mg/dL (70-220) H 186mg/dL (70-220) 216mg/dL (70-220) 169mg/dL (70-220) Test 08/09/16 08:00 08/09/16 12:03 08/09/16 16:58 Bedside Glucose 152mg/dL (70-220) 190mg/dL (70-220) 169mg/dL (70-220) Results Result Diagram: 08/09/16 0620 08/09/16 0620 Results 24 hrs Laboratory Tests Test 08/08/16 17:40 08/08/16 21:41 08/09/16 04:58 08/09/16 06:20 Bedside Glucose 186 216 169 White Blood Count 17.8 H Red Blood Count 3.49 L Hemoglobin 10.1 L Hematocrit 32.6 L Mean Corpuscular Volume 93.4 Mean Corpuscular Hemoglobin 28.9 L Mean Corpuscular Hemoglobin Concent 31.0 L Red Cell Distribution Width 14.6 H Platelet Count 91 L Mean Platelet Volume 11.6 H Neutrophils % 93.6 H Lymphocytes % 0.7 L Monocytes % 4.1 Eosinophils % 0.0 Basophils % 0.1 Nucleated Red Blood Cells % 1.2 H Neutrophils # 16.6 H Lymphocytes # 0.1 L Monocytes # 0.7 Eosinophils # 0.0 Basophils # 0.0 Nucleated Red Blood Cells # 0.2 H Sodium Level 136 Potassium Level 4.2 Chloride Level 98 Carbon Dioxide Level 25 Anion Gap 17 H Blood Urea Nitrogen 89 #H Creatinine 5.16 H Glucose Level 172 Calcium Level 9.2 Test 08/09/16 08:00 08/09/16 12:03 08/09/16 16:58 Bedside Glucose 152 190 169 Medications Medications Current Medications Amlodipine Besylate (Norvasc) 5 mg DAILY PO Last administered on 08/09/16 08:05 ; Admin Dose 5 MG; Start 08/01/16 at 09:00 Atorvastatin Calcium (Lipitor) 40 mg HS PO Last administered on 08/08/16 20:43 ; Admin Dose 40 MG; Start 08/01/16 at 21:00 Calcitriol (Rocaltrol) 0.25 mcg DAILY PO Last administered on 08/09/16 08:04; Admin Dose 0.25 MCG; Start 08/01/16 at 09:00 Calcium/Vitamin D (Oyster Shell/ Vit-D (500/200)) 1 tab BID PO Last administered on 08/09/16 08:04; Admin Dose 1 TAB; Start 08/01/16 at 09:00 Hydralazine HCl (Apresoline) 50 mg Q8 PO Last administered on 08/08/16 22:00; Admin Dose 50 MG; Start 08/01/16 at 06:00 Metoprolol Tartrate (Lopressor) 25 mg BID PO Last administered on 08/09/16 08: 05; Admin Dose 25 MG; Start 08/01/16 at 09:00 Paroxetine HCl (Paxil) 10 mg DAILY PO Last administered on 08/09/16 08:05; Admin Dose 10 MG; Start 08/01/16 at 09:00 Acetaminophen (Tylenol Tab) 650 mg Q4H PRN PO PAIN AND OR ELEVATED TEMP Last administered on 08/09/16 13:51; Admin Dose 650 MG; Start 08/01/16 at 00:30 Hydralazine HCl (Apresoline) 20 mg Q6H PRN IV ELEVATED BLOOD PRESSURE Last administered on 08/09/16 03:50; Admin Dose 20 MG; Start 08/01/16 at 00:30 Guaifenesin/ Dextromethorphan (Robitussin Dm Liquid Cup) 10 ml Q4H PRN PO COUGH Last administered on 08/01/16 00:35; Admin Dose 10 ML; Start 08/01/16 at 00:30 Heparin Sodium (Porcine) (Heparin (5000 Units/0.5 ml)) 5,000 unit BID SC Last administered on 08/04/16 08:55; Admin Dose 5,000 UNIT; Start 08/01/16 at 09:00 ; Status Future Hold Diagnostic Test (Pha) (Accu-Chek) 1 ea 02 XX Last administered on 08/09/16 02: 20; Admin Dose 1 EA; Start 08/01/16 at 02:00 Epoetin [place] (Epogen (Esrd)) 6,000 units MoWeFr@17 SC Last administered on 08/06 17:25; Admin Dose 6,000 UNITS; Start 08/02/16 at 17:00 Miscellaneous Information 1 ea NOTE XX ; Start 08/02/16 at 12:30 Glucose (Glutose) 15 gm Q15M PRN PO DECREASED GLUCOSE; Start 08/02/16 at 12:30 Glucose (Glutose) 22.5 gm Q15M PRN PO DECREASED GLUCOSE; Start 08/02/16 at 12: 30 Dextrose (D50w Syringe) 25 ml Q15M PRN IV DECREASED GLUCOSE; Start 08/02/16 at 12:30 Dextrose (D50w Syringe) 50 ml Q15M PRN IV DECREASED GLUCOSE; Start 08/02/16 at 12:30 Glucagon (Glucagen) 1 mg Q15M PRN IM DECREASED GLUCOSE; Start 08/02/16 at 12:30 Glucose (Glutose) 15 gm Q15M PRN BUCCAL DECREASED GLUCOSE; Start 08/02/16 at 12 :30 Linagliptin 5 mg 5 mg DAILY PO Last administered on 08/09/16 08:04; Admin Dose 5 MG; Start 08/04/16 at 20:00 Cefepime HCl (Maxipime 1gm/50 ml (Pmx)) 50 ml @ 100 mls/hr Q12 IVPB Last administered on 08/09/16 08:05; Admin Dose 100 MLS/HR; Start 08/06/16 at 21:00 Methylprednisolone Sodium Succinate (Solu-Medrol) 20 mg Q8 IV Last administered on 08/09/16 13:37; Admin Dose 20 MG; Start 08/07/16 at 14:00 Salmeterol Xinafoate/ Fluticasone (Advair 250/50 Diskus) 1 inh BID INH Last administered on 08/09/16 08:06; Admin Dose 1 INH; Start 08/08/16 at 11:00 Montelukast Sodium (Singulair) 10 mg HS PO Last administered on 08/08/16 20:44 ; Admin Dose 10 MG; Start 08/08/16 at 21:00 Tiotropium [place] 1 inh 1 inh DAILY INH Last administered on 08/09/16 08:05; Admin Dose 1 INH; Start 08/08/16 at 11:00 Diltiazem HCl (Cardizem-D5W 125 Mg/125 ml Drip) 125 ml @ 5 mls/hr Q24H IV Last administered on 08/09/16 12:34; Admin Dose 5 MLS/HR; Start 08/09/16 at 12:00 Insulin Human NPH (Humulin N) 29 unit Q8 SC Last administered on 08/09/16 13:50 ; Admin Dose 29 UNIT; Start 08/09/16 at 14:00 Diltiazem HCl (Cardizem Cd) 120 mg DAILY PO Last administered on 08/09/16 13:37 ; Admin Dose 120 MG; Start 08/09/16 at 13:06 JUDAH NOE MD Aug 09, 2016 17:37
--- NOTE | 2016-08-09 18:19 | CONS ---
Date/Time of Note Date/Time of Note DATE: 08/09/16 TIME: 18:17 Consult Date/Type/Reason Admit Date/Time Jul 31, 2016 at 19:59 Initial Consult Date 08/06/16 Type of Consultation: Cardiology Ordering Provider: BRYANT PERALTA Objective Vital Signs Date Time Temp Pulse Resp B/P Pulse Ox O2 Delivery O2 Flow Rate FiO2 08/09/16 16:19 120 08/09/16 15:48 98.3 20 131/72 96 08/09/16 14:17 Simple Mask 10.0 Intake and Output 08/08/16 08/08/16 08/09/16 14:59 22:59 06:59 Intake Total 170 ml Balance 170 ml Results/Medications Result Diagram: 08/09/16 0620 08/09/16 0620 Results 24 hrs Laboratory Tests Test 08/08/16 21:41 08/09/16 04:58 08/09/16 06:20 08/09/16 08:00 Bedside Glucose 216 169 152 White Blood Count 17.8 H Red Blood Count 3.49 L Hemoglobin 10.1 L Hematocrit 32.6 L Mean Corpuscular Volume 93.4 Mean Corpuscular Hemoglobin 28.9 L Mean Corpuscular Hemoglobin Concent 31.0 L Red Cell Distribution Width 14.6 H Platelet Count 91 L Mean Platelet Volume 11.6 H Neutrophils % 93.6 H Lymphocytes % 0.7 L Monocytes % 4.1 Eosinophils % 0.0 Basophils % 0.1 Nucleated Red Blood Cells % 1.2 H Neutrophils # 16.6 H Lymphocytes # 0.1 L Monocytes # 0.7 Eosinophils # 0.0 Basophils # 0.0 Nucleated Red Blood Cells # 0.2 H Sodium Level 136 Potassium Level 4.2 Chloride Level 98 Carbon Dioxide Level 25 Anion Gap 17 H Blood Urea Nitrogen 89 #H Creatinine 5.16 H Glucose Level 172 Calcium Level 9.2 Test 08/09/16 12:03 08/09/16 16:58 Bedside Glucose 190 169 Medications Current Medications Amlodipine Besylate (Norvasc) 5 mg DAILY PO Last administered on 08/09/16 08:05 ; Admin Dose 5 MG; Start 08/01/16 at 09:00 Atorvastatin Calcium (Lipitor) 40 mg HS PO Last administered on 08/08/16 20:43 ; Admin Dose 40 MG; Start 08/01/16 at 21:00 Calcitriol (Rocaltrol) 0.25 mcg DAILY PO Last administered on 08/09/16 08:04; Admin Dose 0.25 MCG; Start 08/01/16 at 09:00 Calcium/Vitamin D (Oyster Shell/ Vit-D (500/200)) 1 tab BID PO Last administered on 08/09/16 08:04; Admin Dose 1 TAB; Start 08/01/16 at 09:00 Hydralazine HCl (Apresoline) 50 mg Q8 PO Last administered on 08/08/16 22:00; Admin Dose 50 MG; Start 08/01/16 at 06:00 Metoprolol Tartrate (Lopressor) 25 mg BID PO Last administered on 08/09/16 08: 05; Admin Dose 25 MG; Start 08/01/16 at 09:00 Paroxetine HCl (Paxil) 10 mg DAILY PO Last administered on 08/09/16 08:05; Admin Dose 10 MG; Start 08/01/16 at 09:00 Acetaminophen (Tylenol Tab) 650 mg Q4H PRN PO PAIN AND OR ELEVATED TEMP Last administered on 08/09/16 13:51; Admin Dose 650 MG; Start 08/01/16 at 00:30 Hydralazine HCl (Apresoline) 20 mg Q6H PRN IV ELEVATED BLOOD PRESSURE Last administered on 08/09/16 03:50; Admin Dose 20 MG; Start 08/01/16 at 00:30 Guaifenesin/ Dextromethorphan (Robitussin Dm Liquid Cup) 10 ml Q4H PRN PO COUGH Last administered on 08/01/16 00:35; Admin Dose 10 ML; Start 08/01/16 at 00:30 Heparin Sodium (Porcine) (Heparin (5000 Units/0.5 ml)) 5,000 unit BID SC Last administered on 08/04/16 08:55; Admin Dose 5,000 UNIT; Start 08/01/16 at 09:00 ; Status Future Hold Diagnostic Test (Pha) (Accu-Chek) 1 ea 02 XX Last administered on 08/09/16 02: 20; Admin Dose 1 EA; Start 08/01/16 at 02:00 Epoetin [place]aden (Epogen (Esrd)) 6,000 units MoWeFr@17 SC Last administered on 08/06 17:25; Admin Dose 6,000 UNITS; Start 08/02/16 at 17:00 Miscellaneous Information 1 ea NOTE XX ; Start 08/02/16 at 12:30 Glucose (Glutose) 15 gm Q15M PRN PO DECREASED GLUCOSE; Start 08/02/16 at 12:30 Glucose (Glutose) 22.5 gm Q15M PRN PO DECREASED GLUCOSE; Start 08/02/16 at 12: 30 Dextrose (D50w Syringe) 25 ml Q15M PRN IV DECREASED GLUCOSE; Start 08/02/16 at 12:30 Dextrose (D50w Syringe) 50 ml Q15M PRN IV DECREASED GLUCOSE; Start 08/02/16 at 12:30 Glucagon (Glucagen) 1 mg Q15M PRN IM DECREASED GLUCOSE; Start 08/02/16 at 12:30 Glucose (Glutose) 15 gm Q15M PRN BUCCAL DECREASED GLUCOSE; Start 08/02/16 at 12 :30 Linagliptin 5 mg 5 mg DAILY PO Last administered on 08/09/16 08:04; Admin Dose 5 MG; Start 08/04/16 at 20:00 Cefepime HCl (Maxipime 1gm/50 ml (Pmx)) 50 ml @ 100 mls/hr Q12 IVPB Last administered on 08/09/16 08:05; Admin Dose 100 MLS/HR; Start 08/06/16 at 21:00 Methylprednisolone Sodium Succinate (Solu-Medrol) 20 mg Q8 IV Last administered on 08/09/16 13:37; Admin Dose 20 MG; Start 08/07/16 at 14:00 Salmeterol Xinafoate/ Fluticasone (Advair 250/50 Diskus) 1 inh BID INH Last administered on 08/09/16 08:06; Admin Dose 1 INH; Start 08/08/16 at 11:00 Montelukast Sodium (Singulair) 10 mg HS PO Last administered on 08/08/16 20:44 ; Admin Dose 10 MG; Start 08/08/16 at 21:00 Tiotropium [place] 1 inh 1 inh DAILY INH Last administered on 08/09/16 08:05; Admin Dose 1 INH; Start 08/08/16 at 11:00 Diltiazem HCl (Cardizem-D5W 125 Mg/125 ml Drip) 125 ml @ 5 mls/hr Q24H IV Last administered on 08/09/16 12:34; Admin Dose 5 MLS/HR; Start 08/09/16 at 12:00 Insulin Human NPH (Humulin N) 29 unit Q8 SC Last administered on 08/09/16 13:50 ; Admin Dose 29 UNIT; Start 08/09/16 at 14:00 Diltiazem HCl (Cardizem Cd) 120 mg DAILY PO Last administered on 08/09/16 13:37 ; Admin Dose 120 MG; Start 08/09/16 at 13:06 Assessment/Plan Chief Complaint/Hosp Course Patient is 85 year old F with PMH of HTN, HLD, CKD now presentezd with SOB and ESRD was started on HD. She already has been planning for Stage IV CKD and had fistula done already. Pt does have some SOB. significant Leg edema. Likely realted to CKD and Diastolic HF. LVEF is nl. Problems: Additional Assessment/Plan New onset Afib I would consider coumadin to be started on her with pharmacy to dose May consider Citlaly scan as she is having SOB with new onset Afib, r/o ischemia as a cause. will /.fu cardizem drip and PO cardizem will /.fu rate controlled. SIERRA GARCIA MD Aug 09, 2016 18:18
--- NOTE | 2016-08-09 19:14 | CONS ---
Date/Time of Note Date/Time of Note DATE: 08/09/16 TIME: 19:13 Assessment/Plan Assessment/Plan Chief Complaint/Hosp Course IMPRESSION: 1. End-stage renal disease stage V. 2. Fluid overload.better 3. Pulmonary edema.better 4. Anemia of chronic kidney disease. 5. History of diabetes mellitus. 6. 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 7. AV fistula on the left upper extremity. 8 pneumonia plan continue hd fluis res Problems: Consultation Date/Type/Reason Admit Date/Time Jul 31, 2016 at 19:59 Initial Consult Date 08/01/16 Type of Consultation: renal Referring Provider: BRYANT PERALTA 24 HR Interval Summary Constitutional: other (still sob+) Exam/Review of Systems Vital Signs Vitals Vital Signs Date Time Temp Pulse Resp B/P Pulse Ox O2 Delivery O2 Flow Rate FiO2 08/09/16 16:19 120 08/09/16 15:48 98.3 20 131/72 96 08/09/16 14:17 Simple Mask 10.0 Intake and Output 08/08/16 08/08/16 08/09/16 15:00 23:00 07:00 Intake Total 170 ml Balance 170 ml Exam Respiratory: diminished breath sounds Cardiovascular: regular rate and rhythm Gastrointestinal: soft Musculoskeletal: nl extremities to inspection Extremities: normal pulses Results Result Diagram: 08/09/16 0620 08/09/16 0620 Results 24 hrs Laboratory Tests Test 08/08/16 21:41 08/09/16 04:58 08/09/16 06:20 08/09/16 08:00 Bedside Glucose 216 169 152 White Blood Count 17.8 H Red Blood Count 3.49 L Hemoglobin 10.1 L Hematocrit 32.6 L Mean Corpuscular Volume 93.4 Mean Corpuscular Hemoglobin 28.9 L Mean Corpuscular Hemoglobin Concent 31.0 L Red Cell Distribution Width 14.6 H Platelet Count 91 L Mean Platelet Volume 11.6 H Neutrophils % 93.6 H Lymphocytes % 0.7 L Monocytes % 4.1 Eosinophils % 0.0 Basophils % 0.1 Nucleated Red Blood Cells % 1.2 H Neutrophils # 16.6 H Lymphocytes # 0.1 L Monocytes # 0.7 Eosinophils # 0.0 Basophils # 0.0 Nucleated Red Blood Cells # 0.2 H Sodium Level 136 Potassium Level 4.2 Chloride Level 98 Carbon Dioxide Level 25 Anion Gap 17 H Blood Urea Nitrogen 89 #H Creatinine 5.16 H Glucose Level 172 Calcium Level 9.2 Test 08/09/16 12:03 08/09/16 16:58 Bedside Glucose 190 169 Medications Medications Current Medications Amlodipine Besylate (Norvasc) 5 mg DAILY PO Last administered on 08/09/16 08:05 ; Admin Dose 5 MG; Start 08/01/16 at 09:00 Atorvastatin Calcium (Lipitor) 40 mg HS PO Last administered on 08/08/16 20:43 ; Admin Dose 40 MG; Start 08/01/16 at 21:00 Calcitriol (Rocaltrol) 0.25 mcg DAILY PO Last administered on 08/09/16 08:04; Admin Dose 0.25 MCG; Start 08/01/16 at 09:00 Calcium/Vitamin D (Oyster Shell/ Vit-D (500/200)) 1 tab BID PO Last administered on 08/09/16 08:04; Admin Dose 1 TAB; Start 08/01/16 at 09:00 Hydralazine HCl (Apresoline) 50 mg Q8 PO Last administered on 08/08/16 22:00; Admin Dose 50 MG; Start 08/01/16 at 06:00 Metoprolol Tartrate (Lopressor) 25 mg BID PO Last administered on 08/09/16 08: 05; Admin Dose 25 MG; Start 08/01/16 at 09:00 Paroxetine HCl (Paxil) 10 mg DAILY PO Last administered on 08/09/16 08:05; Admin Dose 10 MG; Start 08/01/16 at 09:00 Acetaminophen (Tylenol Tab) 650 mg Q4H PRN PO PAIN AND OR ELEVATED TEMP Last administered on 08/09/16 13:51; Admin Dose 650 MG; Start 08/01/16 at 00:30 Hydralazine HCl (Apresoline) 20 mg Q6H PRN IV ELEVATED BLOOD PRESSURE Last administered on 08/09/16 03:50; Admin Dose 20 MG; Start 08/01/16 at 00:30 Guaifenesin/ Dextromethorphan (Robitussin Dm Liquid Cup) 10 ml Q4H PRN PO COUGH Last administered on 08/01/16 00:35; Admin Dose 10 ML; Start 08/01/16 at 00:30 Heparin Sodium (Porcine) (Heparin (5000 Units/0.5 ml)) 5,000 unit BID SC Last administered on 08/04/16 08:55; Admin Dose 5,000 UNIT; Start 08/01/16 at 09:00 ; Status Future Hold Diagnostic Test (Pha) (Accu-Chek) 1 ea 02 XX Last administered on 08/09/16 02: 20; Admin Dose 1 EA; Start 08/01/16 at 02:00 Epoetin Braden (Epogen (Esrd)) 6,000 units MoWeFr@17 SC Last administered on 08/06 17:25; Admin Dose 6,000 UNITS; Start 08/02/16 at 17:00 Miscellaneous Information 1 ea NOTE XX ; Start 08/02/16 at 12:30 Glucose (Glutose) 15 gm Q15M PRN PO DECREASED GLUCOSE; Start 08/02/16 at 12:30 Glucose (Glutose) 22.5 gm Q15M PRN PO DECREASED GLUCOSE; Start 08/02/16 at 12: 30 Dextrose (D50w Syringe) 25 ml Q15M PRN IV DECREASED GLUCOSE; Start 08/02/16 at 12:30 Dextrose (D50w Syringe) 50 ml Q15M PRN IV DECREASED GLUCOSE; Start 08/02/16 at 12:30 Glucagon (Glucagen) 1 mg Q15M PRN IM DECREASED GLUCOSE; Start 08/02/16 at 12:30 Glucose (Glutose) 15 gm Q15M PRN BUCCAL DECREASED GLUCOSE; Start 08/02/16 at 12 :30 Linagliptin 5 mg 5 mg DAILY PO Last administered on 08/09/16 08:04; Admin Dose 5 MG; Start 08/04/16 at 20:00 Cefepime HCl (Maxipime 1gm/50 ml (Pmx)) 50 ml @ 100 mls/hr Q12 IVPB Last administered on 08/09/16 08:05; Admin Dose 100 MLS/HR; Start 08/06/16 at 21:00 Methylprednisolone Sodium Succinate (Solu-Medrol) 20 mg Q8 IV Last administered on 08/09/16 13:37; Admin Dose 20 MG; Start 08/07/16 at 14:00 Salmeterol Xinafoate/ Fluticasone (Advair 250/50 Diskus) 1 inh BID INH Last administered on 08/09/16 08:06; Admin Dose 1 INH; Start 08/08/16 at 11:00 Montelukast Sodium (Singulair) 10 mg HS PO Last administered on 08/08/16 20:44 ; Admin Dose 10 MG; Start 08/08/16 at 21:00 Tiotropium [place] 1 inh 1 inh DAILY INH Last administered on 08/09/16 08:05; Admin Dose 1 INH; Start 08/08/16 at 11:00 Diltiazem HCl (Cardizem-D5W 125 Mg/125 ml Drip) 125 ml @ 5 mls/hr Q24H IV Last administered on 08/09/16 12:34; Admin Dose 5 MLS/HR; Start 08/09/16 at 12:00 Insulin Human NPH (Humulin N) 29 unit Q8 SC Last administered on 08/09/16 13:50 ; Admin Dose 29 UNIT; Start 08/09/16 at 14:00 Diltiazem HCl (Cardizem Cd) 120 mg DAILY PO Last administered on 08/09/16 13:37 ; Admin Dose 120 MG; Start 08/09/16 at 13:06 Warfarin Sodium (Coumadin) 4 mg ONCE@17 ONCE PO ; Start 08/10/16 at 17:00; Stop 08/10/16 at 17:01 DAT OLSON MD Aug 09, 2016 19:14
--- NOTE | 2016-08-09 20:00 | CONS ---
DATE OF ADMISSION: 07/31/2016 DATE OF CONSULTATION: 08/09/2016 TYPE OF CONSULTATION: Infectious disease. REASON FOR CONSULTATION: Antibiotic management. HISTORY OF PRESENT ILLNESS: The patient is a pleasant 85-year-old female who came to the e mergency room on 07/31 with a few day history of increasing shortness of breath, cough and wheezing. Her symptoms started 2 days prior to admission. She denies any fever or chills. She has a histor y of end-stage renal disease and hemodialysis is being contemplated. She denies any sputum producti on. Her past problems include: 1. End-stage renal disease. 2. Hypertension. 3. Diabetes. 4. Pancreatic stent. 5. Hyperlipidemia. 6. Coronary artery disease. On admission, her white count was 5.8, H and H 7.8 and 25.8, platelet count of 180,000. BUN and cre atinine 77/7.05. HOSPITAL COURSE: The patient has had a long hospital course. She was seen by multiple consultants. She had a contusion of the hip, facial contusion, acute urinary tract infection and was started on hemodialysis. She had pulmonary edema which is improved. She will consider an echocardiogram. She had a fistula done already. She is a former smoker. On 08/07, blood cultures have grown out gram- negative rods. She had an inserted tunneled catheter on 08/05, she had a CT scan of the chest which showed extensive right-sided pneumonia, moderate atelectasis, coronary artery calcifications, previ ous cholecystectomy, previous vertebroplasty at the L1 level, old compression fracture of T6 and T11 . Extensive airspace disease throughout the right upper lobe posteriorly, right middle lobe through out most of the right lower lobe consistent with pneumonia. I do not see a sputum. The patient com plaining of chest congestion and cough. Today, she is scheduled for dialysis. Her white count toda y is 17.8. BUN and creatinine 89/____. PAST MEDICAL HISTORY: Operations as outlined. FAMILY HISTORY: Noncontributory. SOCIAL HISTORY: She is a former smoker. She does not drink or abuse drugs. ALLERGIES: NONE TO PENICILLIN, SULFA OR FOODS. MEDICATIONS: Per chart. REVIEW OF SYSTEMS: As per HPI. PHYSICAL EXAMINATION: GENERAL: She is a well-developed, well-nourished female, alert, responsive, in no acute distress. VITAL SIGNS: Stable. She is afebrile. SKIN: Without generalized rash. HEENT: Within normal limits. NECK: Supple. LYMPH NODES: None palpable. CHEST: Scattered rhonchi bilaterally. HEART: Without murmur or gallop. ABDOMEN: Soft, nontender, nondistended, without organosplenomegaly or masses. EXTREMITIES: Without cyanosis, clubbing, or edema. RECTAL AND GENITAL: Deferred. NEUROLOGIC: No focal neurological abnormality. She has a left upper extremity AV fistula with palp able thrill and audible bruit and a right IJ Perm-A-Cath. White count today is 17.8. IMPRESSION AND PLAN: The patient is currently on cefepime since she may have received vancomycin in the past but she did receive azithromycin though. The etiology of the gram-negative rods is not cl ear. She is not putting out urine. Review of her serologies showed she is reactive for hepatitis C . We will try to get sputum culture. I will dictate my findings to I believe Dr. Flores and the multiple consultants. Dictated By: GURINDER GOODMAN MD, JD/SYED Conf#: [id number] DID#: [id number]
[2016-08-09] MEDS ORDERED: ALBUMIN HUMAN 25% 100 ML IV ONE (21:00)
[2016-08-09] MEDS ORDERED: HEPARIN 1000 UNITS/ML 10 ML INJ CATHETER ONE (21:00)
[2016-08-09] MEDS: ATORVASTATIN 40 MG TAB PO SCH (22:13)
[2016-08-09] MEDS: MONTELUKAST 10 MG TAB PO SCH (22:13)
[2016-08-09] MEDS: EPOETIN 3000 UNITS/1 ML INJ (ESRD) SC SCH (22:23)
[2016-08-10] VITALS (17 sets, daily range): BP systolic 75–123; BP diastolic 35–63; PULSE 74–103; RESP 18–20
[2016-08-10] MEDS: ACCU-CHEK XX SCH (02:00)
[2016-08-10] MEDS: ALBUTEROL/IPRATROPIUM (NEB) 3 ML AMP HHN SCH ×5 (02:48→20:18)
[2016-08-10] MEDS: FUROSEMIDE 40 MG INJ IV SCH ×2 (05:46→17:47)
[2016-08-10] MEDS: METHYLPREDNISOLONE 40 MG INJ IV SCH ×3 (05:47→23:10)
[2016-08-10] MEDS: NPH, HUMAN INSULIN ISOPHANE 3ML VIAL SC SCH ×3 (05:54→23:20)
[2016-08-10 07:33] LABS: ADD SCAN DIFF NO
[2016-08-10 07:41] LABS: ABNORMAL IP MESSAGE 1; HEMATOCRIT 31.3 % (37.0-47.0); HEMOGLOBIN 9.8 g/dl (12.0-16.0); MEAN CORPUSCULAR HEMOGLOBIN 29.2 pg (29.0-33.0); MEAN CORPUSCULAR HGB CONC 31.3 g/dl (32.0-37.0); MEAN CORPUSCULAR VOLUME 93.2 fl (82.0-101.0); MEAN PLATELET VOLUME 11.4 fl (7.4-10.4); PLATELET COUNT 89 10^3/UL (140-415); RED BLOOD COUNT 3.36 10^6/ul (4.20-5.40); RED CELL DISTRIBUTION WIDTH 14.9 % (11.5-14.5); WHITE BLOOD COUNT 15.2 10^3/ul (4.8-10.8)
[2016-08-10 08:01] LABS: POTASSIUM 4.3 mmol/L (3.5-5.1)
[2016-08-10 08:04] LABS: CREATININE 3.9 mg/dl (0.44-1.00)
[2016-08-10 08:05] LABS: CALCIUM 9.2 mg/dl (8.4-10.2)
[2016-08-10] MEDS: INSULIN ASPART [NOVOLOG] 3 ML PEN SC SCH ×4 (08:06→21:00)
[2016-08-10 08:07] LABS: AADO2 Arterial 370.2 mmHg (7.0-24.0); Allen Test ACCEPTAB; Arterial COHb 0.3 % (0.0-3.0); Arterial Fraction of Oxyhgb 95.1 % (93.0-99.0); Arterial HCO3 27.7 mmol/L (22.0-26.0); Arterial MetHb 0.1 % (0.0-1.5); Arterial Total Hemglobin 11.1 g/dl (12.0-18.0); MODE MASK - SIMPLE
[2016-08-10 08:36] LABS: INR 1.16; PROTIME 14.9 Sec (12.2-14.2); PT RATIO 1.2
--- NOTE | 2016-08-10 08:59 | RADRPT ---
PROCEDURE: XR Chest. CLINICAL INDICATION: Shortness of breath. TECHNIQUE: Single frontal view of the chest was obtained. COMPARISON: 08/06/2016. FINDINGS: The cardiac silhouette remains enlarged. There is calcification and unfolding of the thoracic aorta . Pulmonary vasculature appears prominent. There is continued air space consolidation and/or atele ctasis on the right. There are bilateral pleural effusions, right greater than left. There is a benjie neled catheter on the right. The tip is at the cavoatrial junction. There is a healed fracture of the proximal left humerus. IMPRESSION: 1. Unchanging apparent vascular congestion and diffuse interstitial prominence. 2. Asymmetric air space opacity in the right lung that may represent consolidation and/or atelectas is with associated pleural effusion. 3. Small left pleural effusion. 4. Aortic atherosclerosis. RPTAT: [facility] Physician Imelda Date Time Electronically viewed and signed by Physician Imelda on 08/10/2016 08:59 /
[2016-08-10] MEDS ORDERED: DILTIAZEM (CD) 120 MG CAP PO SCH (09:00)
[2016-08-10] MEDS: TIOTROPIUM 18 MCG CAPSULE INHA DEV INH SCH (09:25)
[2016-08-10] MEDS: CALCIUM/VITAMIN D (500/200) TAB PO SCH ×2 (09:25→21:28)
[2016-08-10] MEDS: METOPROLOL 25 MG TAB PO SCH ×2 (09:25→21:29)
[2016-08-10] MEDS: AMLODIPINE 5 MG TAB PO SCH (09:25)
[2016-08-10] MEDS: CALCITRIOL 0.25 MCG CAP PO SCH (09:25)
[2016-08-10] MEDS: LINAGLIPTIN 5 MG TABLET PO SCH (09:25)
[2016-08-10] MEDS: PAROXETINE 10 MG TAB PO SCH (09:26)
[2016-08-10] MEDS: CEFEPIME 1GM/50 ML (PMX) 50 ML IVPB SCH ×2 (09:26→21:27)
[2016-08-10] MEDS: DILTIAZEM (CD) 120 MG CAP PO SCH (09:26)
[2016-08-10] MEDS: SALMETEROL/FLUTICASONE 250/50 INHA INH SCH ×2 (09:26→21:29)
[2016-08-10] MEDS: GUAIFENESIN/DM 5ML CUP PO PRN (09:37)
[2016-08-10 11:14] LABS: LYMPHOCYTES # 0.8 10^3/ul (0.8-2.9); MONOCYTE # 0.8 10^3/ul (0.3-0.9); NEUTROPHIL # 13.1 10^3/ul (1.6-7.5); PLATELET ESTIMATE PLT APPEAR DECREASED
--- NOTE | 2016-08-10 11:26 | CONS ---
Date/Time of Note Date/Time of Note DATE: 08/10/16 TIME: 11:25 Assessment/Plan Assessment/Plan Additional Assessment/Plan Chest x-ray was reviewed from today which is showing right pleural effusion. Assessment recommendations; 1. Patient admitted for right lower lobe pneumonia as well as CHF and acute renal failure now requiring hemodialysis. 2. Mild shortness of breath due to fluid examination. Continue current treatment. Patient will be dialyzed today. Consultation Date/Type/Reason Admit Date/Time Jul 31, 2016 at 19:59 Initial Consult Date 08/06/16 Type of Consultation: Pulmonary Referring Provider: BRYANT PERALTA 24 HR Interval Summary Free Text/Dictation Patient is complaining of occasional shortness of breath. But currently denies any. Her FiO2 has been increased now. Denies any coughing, wheezing. Any sputum production. General exam; elderly lady, awake alert currently in no distress. Exam/Review of Systems Vital Signs Vitals Vital Signs Date Time Temp Pulse Resp B/P Pulse Ox O2 Delivery O2 Flow Rate FiO2 08/10/16 08:09 74 08/10/16 08:07 Simple Mask 10.0 08/10/16 07:45 32 88 08/10/16 07:33 98.2 111/56 Intake and Output 08/09/16 08/09/16 08/10/16 15:00 23:00 07:00 Intake Total 50 ml 1130 ml 960 ml Output Total 3500 ml Balance 50 ml -2370 ml 960 ml Exam HEENT exam; supple neck, positive JVD. No lymphadenopathy. Midline trachea. No thyromegaly. No neck masses. Pupils are small bilaterally. Chest exam is; diminished breath sounds right lower lobe rest of the lung jimenez are clear. S1-S2 audible, no murmurs. Regular rhythm. Abdomen exam is; soft, nontender. No organomegaly. Bowel sounds audible. Extremity exam; no peripheral edema. [employer] examination; no focal deficit. Results Result Diagram: 08/10/16 0650 08/10/16 0650 Results 24 hrs Laboratory Tests Test 08/09/16 12:03 08/09/16 16:58 08/09/16 22:10 08/10/16 02:05 Bedside Glucose 190 169 152 115 Test 08/10/16 05:45 08/10/16 06:50 08/10/16 07:43 08/10/16 07:51 Bedside Glucose 139 144 White Blood Count 15.2 H Red Blood Count 3.36 L Hemoglobin 9.8 L Hematocrit 31.3 L Mean Corpuscular Volume 93.2 Mean Corpuscular Hemoglobin 29.2 Mean Corpuscular Hemoglobin Concent 31.3 L Red Cell Distribution Width 14.9 H Platelet Count 89 L Mean Platelet Volume 11.4 H Neutrophils % 86.0 H Band Neutrophils % 4.0 Lymphocytes % 5.0 L Monocytes % 5.0 Eosinophils % Nucleated Red Blood Cells % 5.0 H Neutrophils # 13.1 H Lymphocytes # 0.8 Monocytes # 0.8 Eosinophils # Platelet Estimate PLT APPEAR DECREASED Prothrombin Time 14.9 H Prothrombin Time Ratio 1.2 INR International Normalized Ratio 1.16 Sodium Level 137 Potassium Level 4.3 Chloride Level 97 Carbon Dioxide Level 27 Anion Gap 17 H Blood Urea Nitrogen 59 #H Creatinine 3.90 #H Glucose Level 142 Calcium Level 9.2 Blood Gas Specimen Source Blood arterial Arterial Blood Date Drawn 08/10/2016 8:00:13 AM Arterial Blood pH (Temp corrected) 7.426 Arterial Blood pCO2 (Temp correct) 43.1 Arterial Blood pO2 (Temp corrected) 75.3 L Arterial Blood HCO3 27.7 H Arterial Blood Base Excess 3.0 Arterial Blood Oxygen Saturation 95.5 Chris Test ACCEPTAB Arterial Blood Gas Puncture Site Right Radial Arterial Blood Carboxyhemoglobin 0.3 Arterial Blood Methemoglobin 0.1 Blood Gas A-a O2 Differential 370.2 H Oxyhemoglobin Percent 95.1 Total Hemoglobin 11.1 L Blood Gas Temperature 37.0 Blood Gas Modality MASK - SIMPLE FiO2 69.0 Blood Gas Notified Whom RT Blood Gas Notified Time 08/10/2016 8:07:41 AM Medications Medications Current Medications Amlodipine Besylate (Norvasc) 5 mg DAILY PO Last administered on 08/10/16 09:25 ; Admin Dose 5 MG; Start 08/01/16 at 09:00 Atorvastatin Calcium (Lipitor) 40 mg HS PO Last administered on 08/09/16 22:13 ; Admin Dose 40 MG; Start 08/01/16 at 21:00 Calcitriol (Rocaltrol) 0.25 mcg DAILY PO Last administered on 08/10/16 09:25; Admin Dose 0.25 MCG; Start 08/01/16 at 09:00 Calcium/Vitamin D (Oyster Shell/ Vit-D (500/200)) 1 tab BID PO Last administered on 08/10/16 09:25; Admin Dose 1 TAB; Start 08/01/16 at 09:00 Hydralazine HCl (Apresoline) 50 mg Q8 PO Last administered on 08/10/16 05:48; Admin Dose 50 MG; Start 08/01/16 at 06:00 Metoprolol Tartrate (Lopressor) 25 mg BID PO Last administered on 08/10/16 09: 25; Admin Dose 25 MG; Start 08/01/16 at 09:00 Paroxetine HCl (Paxil) 10 mg DAILY PO Last administered on 08/10/16 09:26; Admin Dose 10 MG; Start 08/01/16 at 09:00 Acetaminophen (Tylenol Tab) 650 mg Q4H PRN PO PAIN AND OR ELEVATED TEMP Last administered on 08/09/16 13:51; Admin Dose 650 MG; Start 08/01/16 at 00:30 Hydralazine HCl (Apresoline) 20 mg Q6H PRN IV ELEVATED BLOOD PRESSURE Last administered on 08/09/16 03:50; Admin Dose 20 MG; Start 08/01/16 at 00:30 Guaifenesin/ Dextromethorphan (Robitussin Dm Liquid Cup) 10 ml Q4H PRN PO COUGH Last administered on 08/10/16 09:37; Admin Dose 10 ML; Start 08/01/16 at 00:30 Heparin Sodium (Porcine) (Heparin (5000 Units/0.5 ml)) 5,000 unit BID SC Last administered on 08/04/16 08:55; Admin Dose 5,000 UNIT; Start 08/01/16 at 09:00 ; Status Future Hold Diagnostic Test (Pha) (Accu-Chek) 1 ea 02 XX Last administered on 08/09/16 02: 20; Admin Dose 1 EA; Start 08/01/16 at 02:00 Epoetin Braden (Epogen (Esrd)) 6,000 units MoWeFr@17 SC Last administered on 22:23; Admin Dose 6,000 UNITS; Start 08/02/16 at 17:00 Miscellaneous Information 1 ea NOTE XX ; Start 08/02/16 at 12:30 Glucose (Glutose) 15 gm Q15M PRN PO DECREASED GLUCOSE; Start 08/02/16 at 12:30 Glucose (Glutose) 22.5 gm Q15M PRN PO DECREASED GLUCOSE; Start 08/02/16 at 12: 30 Dextrose (D50w Syringe) 25 ml Q15M PRN IV DECREASED GLUCOSE; Start 08/02/16 at 12:30 Dextrose (D50w Syringe) 50 ml Q15M PRN IV DECREASED GLUCOSE; Start 08/02/16 at 12:30 Glucagon (Glucagen) 1 mg Q15M PRN IM DECREASED GLUCOSE; Start 08/02/16 at 12:30 Glucose (Glutose) 15 gm Q15M PRN BUCCAL DECREASED GLUCOSE; Start 08/02/16 at 12 :30 Linagliptin 5 mg 5 mg DAILY PO Last administered on 08/10/16 09:25; Admin Dose 5 MG; Start 08/04/16 at 20:00 Cefepime HCl (Maxipime 1gm/50 ml (Pmx)) 50 ml @ 100 mls/hr Q12 IVPB Last administered on 08/10/16 09:26; Admin Dose 100 MLS/HR; Start 08/06/16 at 21:00 Methylprednisolone Sodium Succinate (Solu-Medrol) 20 mg Q8 IV Last administered on 08/10/16 05:47; Admin Dose 20 MG; Start 08/07/16 at 14:00 Salmeterol Xinafoate/ Fluticasone (Advair 250/50 Diskus) 1 inh BID INH Last administered on 08/10/16 09:26; Admin Dose 1 INH; Start 08/08/16 at 11:00 Montelukast Sodium (Singulair) 10 mg HS PO Last administered on 08/09/16 22:13 ; Admin Dose 10 MG; Start 08/08/16 at 21:00 Tiotropium [place] 1 inh 1 inh DAILY INH Last administered on 08/10/16 09:25; Admin Dose 1 INH; Start 08/08/16 at 11:00 Diltiazem HCl (Cardizem-D5W 125 Mg/125 ml Drip) 125 ml @ 5 mls/hr Q24H IV Last administered on 08/09/16 12:34; Admin Dose 5 MLS/HR; Start 08/09/16 at 12:00 Insulin Human NPH (Humulin N) 29 unit Q8 SC Last administered on 08/10/16 05:54 ; Admin Dose 29 UNIT; Start 08/09/16 at 14:00 Diltiazem HCl (Cardizem Cd) 120 mg DAILY PO Last administered on 08/10/16 09:26 ; Admin Dose 120 MG; Start 08/09/16 at 13:06 Warfarin Sodium (Coumadin) 4 mg ONCE@17 ONCE PO ; Start 08/10/16 at 17:00; Stop 08/10/16 at 17:01 KOFI HUERTA Aug 10, 2016 11:26
[2016-08-10] MEDS: DILTIAZEM-D5W 125MG/125ML DRIP 125 ML IV SCH (12:00)
--- NOTE | 2016-08-10 13:33 | PN ---
DATE: 08/10/2016 SUBJECTIVE: No events overnight. No fevers. The patient is lying comfortably in bed, awake. Rojelio es pain, discomfort. She is on nasal cannula. Temperature 98.2 LABORATORY: WBC today 15.2, H and H 9.8 and 31.3, platelets 81, neutrophils 86. INDWELLINGS: Right chest PermCath that was placed recently on 08/05/2016. MICROBIOLOGY: Blood culture growing gram-negative rods. ANTIMICROBIALS: The patient is off antibiotics currently. PHYSICAL EXAMINATION: GENERAL: This is a fragile, elderly woman who is alert, in no distress. HEENT: Head atraumatic, normocephalic. Sclerae anicteric. Buccal mucosa dry. NECK: Supple, trachea midline. CHEST: Rise symmetrical. Breath sounds diminished at the bases. HEART: S1, S2. ABDOMEN: Soft, bowel tones present. EXTREMITIES: Without cyanosis. ASSESSMENT: 1. Bacteremia. 2. Healthcare-acquired pneumonia. 3. End-stage renal disease, hemodialysis dependent. 4. Congestive heart failure. 5. Diabetes. 6. History of pancreatic stent placement. PLAN: We are going to put the patient on Zosyn. Repeat blood cultures with next hemodialysis and c ontinue present care as per primary team and consultants. Dictated By: NAHUN DOWNEY JAVA LEAD ARCHITECT for GURINDER HURT/SYED Conf#: [id number] DID#: [id number]
--- NOTE | 2016-08-10 14:52 | PN ---
Date/Time of Note Date/Time of Note DATE: 08/10/16 TIME: 14:52 Assessment/Plan VTE Prophylaxis VTE Prophylaxis Intervention: SCD's Lines/Catheters IV Catheter Type (from [facility]): [facility] Urinary Cath still in place: No Assessment/Plan Chief Complaint/Hosp Course Assessment and plan: -Acute respiratory insufficiency secondary to pneumonia and COPD exacerbation. - Right-sided pneumonia per CT scan, continue cefepime. - A-fib with RVR, continue Cardizem, patient is followed by Dr. Stuart in cardiology. - COPD exacerbation, continue breathing treatment. Dr. Natarajan is following in pulmonology consultation - End-stage renal disease stage V. Dr. Leon is following in nephrology consultation. Continue to hemodialysis via right femoral hemodialysis catheter. - Pulmonary edema. Continue diuresis. - Anemia of chronic kidney disease. Continue Epogen. - Diabetes mellitus type [address] Garcia is following an endocrinology consultation. Continue NPH. - Hypertension, continue Norvasc. -Left upper extremity AV fistula, non-matured -Status post right hemodialysis non-tunneled catheter placement by Dr. Manning on 08/03. S/p R IJ tunneled hemodialysis catheter placement. Further recommendations based on clinical course. Plan of care discussed with Dr. Flores Problems: Exam/Review of Systems Vital Signs Vitals Vital Signs Date Time Temp Pulse Resp B/P Pulse Ox O2 Delivery O2 Flow Rate FiO2 08/10/16 13:44 87 28 94 Nasal Cannula 6.0 08/10/16 12:00 98.0 123/63 Intake and Output 08/09/16 08/09/16 08/10/16 15:00 23:00 07:00 Intake Total 50 ml 1130 ml 960 ml Output Total 3500 ml Balance 50 ml -2370 ml 960 ml Exam Constitutional: alert, oriented Psych: no complaints Head: atraumatic, normocephalic Eyes: nl conjunctiva ENMT: nl external ears & nose, nl lips & teeth Neck: non-tender, supple Respiratory: Rhonchi bilaterally Cardiovascular: nl pulses, regular rate and rhythm Gastrointestinal: non-tender, soft Musculoskeletal: nl extremities to inspection Extremities: normal pulses 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 Additional Comments Left upper extremities with AV fistula with palpable thrill and audible bruit Right IJ permacath Results Result Diagram: 08/10/16 0650 08/10/16 0650 Results 24 hrs Laboratory Tests Test 08/09/16 16:58 08/09/16 22:10 08/10/16 02:05 08/10/16 05:45 Bedside Glucose 169 152 115 139 Test 08/10/16 06:50 08/10/16 07:43 08/10/16 07:51 08/10/16 11:26 White Blood Count 15.2 H Red Blood Count 3.36 L Hemoglobin 9.8 L Hematocrit 31.3 L Mean Corpuscular Volume 93.2 Mean Corpuscular Hemoglobin 29.2 Mean Corpuscular Hemoglobin Concent 31.3 L Red Cell Distribution Width 14.9 H Platelet Count 89 L Mean Platelet Volume 11.4 H Neutrophils % 86.0 H Band Neutrophils % 4.0 Lymphocytes % 5.0 L Monocytes % 5.0 Eosinophils % Nucleated Red Blood Cells % 5.0 H Neutrophils # 13.1 H Lymphocytes # 0.8 Monocytes # 0.8 Eosinophils # Platelet Estimate PLT APPEAR DECREASED Prothrombin Time 14.9 H Prothrombin Time Ratio 1.2 INR International Normalized Ratio 1.16 Sodium Level 137 Potassium Level 4.3 Chloride Level 97 Carbon Dioxide Level 27 Anion Gap 17 H Blood Urea Nitrogen 59 #H Creatinine 3.90 #H Glucose Level 142 Calcium Level 9.2 Bedside Glucose 144 220 Blood Gas Specimen Source Blood arterial Arterial Blood Date Drawn 08/10/2016 8:00:13 AM Arterial Blood pH (Temp corrected) 7.426 Arterial Blood pCO2 (Temp correct) 43.1 Arterial Blood pO2 (Temp corrected) 75.3 L Arterial Blood HCO3 27.7 H Arterial Blood Base Excess 3.0 Arterial Blood Oxygen Saturation 95.5 Chris Test ACCEPTAB Arterial Blood Gas Puncture Site Right Radial Arterial Blood Carboxyhemoglobin 0.3 Arterial Blood Methemoglobin 0.1 Blood Gas A-a O2 Differential 370.2 H Oxyhemoglobin Percent 95.1 Total Hemoglobin 11.1 L Blood Gas Temperature 37.0 Blood Gas Modality MASK - SIMPLE FiO2 69.0 Blood Gas Notified Whom RT Blood Gas Notified Time 08/10/2016 8:07:41 AM Medications Medications Current Medications Amlodipine Besylate (Norvasc) 5 mg DAILY PO Last administered on 08/10/16t 09:25 ; Admin Dose 5 MG; Start 08/01/16 at 09:00 Atorvastatin Calcium (Lipitor) 40 mg HS PO Last administered on 08/09/16 22:13 ; Admin Dose 40 MG; Start 08/01/16 at 21:00 Calcitriol (Rocaltrol) 0.25 mcg DAILY PO Last administered on 08/10/16 09:25; Admin Dose 0.25 MCG; Start 08/01/16 at 09:00 Calcium/Vitamin D (Oyster Shell/ Vit-D (500/200)) 1 tab BID PO Last administered on 08/10/16 09:25; Admin Dose 1 TAB; Start 08/01/16 at 09:00 Hydralazine HCl (Apresoline) 50 mg Q8 PO Last administered on 08/10/16 05:48; Admin Dose 50 MG; Start 08/01/16 at 06:00 Metoprolol Tartrate (Lopressor) 25 mg BID PO Last administered on 08/10/16 09: 25; Admin Dose 25 MG; Start 08/01/16 at 09:00 Paroxetine HCl (Paxil) 10 mg DAILY PO Last administered on 08/10/16 09:26; Admin Dose 10 MG; Start 08/01/16 at 09:00 Acetaminophen (Tylenol Tab) 650 mg Q4H PRN PO PAIN AND OR ELEVATED TEMP Last administered on 08/09/16 13:51; Admin Dose 650 MG; Start 08/01/16 at 00:30 Hydralazine HCl (Apresoline) 20 mg Q6H PRN IV ELEVATED BLOOD PRESSURE Last administered on 08/09/16 03:50; Admin Dose 20 MG; Start 08/01/16 at 00:30 Guaifenesin/ Dextromethorphan (Robitussin Dm Liquid Cup) 10 ml Q4H PRN PO COUGH Last administered on 08/10/16 09:37; Admin Dose 10 ML; Start 08/01/16 at 00:30 Heparin Sodium (Porcine) (Heparin (5000 Units/0.5 ml)) 5,000 unit BID SC Last administered on 08/04/16 08:55; Admin Dose 5,000 UNIT; Start 08/01/16 at 09:00 ; Status Future Hold Diagnostic Test (Pha) (Accu-Chek) 1 ea 02 XX Last administered on 08/09/16 02: 20; Admin Dose 1 EA; Start 08/01/16 at 02:00 Epoetin Braden (Epogen (Esrd)) 6,000 units MoWeFr@17 SC Last administered on 22:23; Admin Dose 6,000 UNITS; Start 08/02/16 at 17:00 Miscellaneous Information 1 ea NOTE XX ; Start 08/02/16 at 12:30 Glucose (Glutose) 15 gm Q15M PRN PO DECREASED GLUCOSE; Start 08/02/16 at 12:30 Glucose (Glutose) 22.5 gm Q15M PRN PO DECREASED GLUCOSE; Start 08/02/16 at 12: 30 Dextrose (D50w Syringe) 25 ml Q15M PRN IV DECREASED GLUCOSE; Start 08/02/16 at 12:30 Dextrose (D50w Syringe) 50 ml Q15M PRN IV DECREASED GLUCOSE; Start 08/02/16 at 12:30 Glucagon (Glucagen) 1 mg Q15M PRN IM DECREASED GLUCOSE; Start 08/02/16 at 12:30 Glucose (Glutose) 15 gm Q15M PRN BUCCAL DECREASED GLUCOSE; Start 08/02/16 at 12 :30 Linagliptin 5 mg 5 mg DAILY PO Last administered on 08/10/16 09:25; Admin Dose 5 MG; Start 08/04/16 at 20:00 Cefepime HCl (Maxipime 1gm/50 ml (Pmx)) 50 ml @ 100 mls/hr Q12 IVPB Last administered on 08/10/16 09:26; Admin Dose 100 MLS/HR; Start 08/06/16 at 21:00 Methylprednisolone Sodium Succinate (Solu-Medrol) 20 mg Q8 IV Last administered on 08/10/16 05:47; Admin Dose 20 MG; Start 08/07/16 at 14:00 Salmeterol Xinafoate/ Fluticasone (Advair 250/50 Diskus) 1 inh BID INH Last administered on 08/10/16 09:26; Admin Dose 1 INH; Start 08/08/16 at 11:00 Montelukast Sodium (Singulair) 10 mg HS PO Last administered on 08/09/16 22:13 ; Admin Dose 10 MG; Start 08/08/16 at 21:00 Tiotropium [place] 1 inh 1 inh DAILY INH Last administered on 08/10/16 09:25; Admin Dose 1 INH; Start 4/2/17 at 11:00 Diltiazem HCl (Cardizem-D5W 125 Mg/125 ml Drip) 125 ml @ 5 mls/hr Q24H IV Last administered on 08/09/16 12:34; Admin Dose 5 MLS/HR; Start 08/09/16 at 12:00 Insulin Human NPH (Humulin N) 29 unit Q8 SC Last administered on 08/10/16 05:54 ; Admin Dose 29 UNIT; Start 08/09/16 at 14:00 Diltiazem HCl (Cardizem Cd) 120 mg DAILY PO Last administered on 08/10/16 09:26 ; Admin Dose 120 MG; Start 08/09/16 at 13:06 Warfarin Sodium 4 mg 4 mg ONCE@17 ONCE PO ; Start 08/10/16 at 17:00; Stop at 17:01 Piperacillin Sod/ Tazobactam Sod (Zosyn 2.25gm/ 50ml (Pmx)) 50 ml @ 100 mls/hr Q8 IVPB ; Start 08/10/16 at 14:00 BRYANT PERALTA Aug 10, 2016 14:52
[2016-08-10] MEDS: PIPER-TAZO 2.25 GM (PMX) 50 ML IVPB SCH ×2 (14:55→23:10)
--- NOTE | 2016-08-10 16:57 | RADRPT ---
PROCEDURE: CT Chest without contrast. CLINICAL INDICATION: Shortness of breath. TECHNIQUE: Helical axial sections were obtained through the chest without intravenous contrast enh ancement. Coronal and sagittal reformatted images were obtained from the axial source images. Total exam DLP is 576.57 mGy-cm. CTDIvol is 15.76 mGy. One or more of the following dose reduction humble hniques were used: Automated exposure control, adjustment of the mA and/or kV according to patient s ize, use of iterative reconstruction technique. COMPARISON: CT scan of the chest dated 08/06/2016. FINDINGS: There is a tunneled right internal jugular vein dialysis catheter with the tip in the cavoatrial nehal ction region. There is extensive air space disease throughout the right upper lobe posteriorly, righ t middle lobe posteriorly, and throughout most of the right lower lobe consistent with pneumonia. Th is is slightly improved. There is moderate atelectasis at the left lung base, slightly improved. Mil d air space disease is present in the left upper lobe posteriorly consistent with pneumonia, slightl y improved. There is no pulmonary nodule or mass lesion. There is no mediastinal or hilar lymphadenopathy or mass. There is no axillary, supraclavicular, or internal mammary lymphadenopathy. The thoracic aorta is not dilated. There is calcification in the aorta consistent with atheroscleros is. The heart size is normal. There is coronary artery calcification. There are moderate bilateral pleural effusions slightly smaller than seen previously.. There is no p ericardial effusion. Images through the upper abdomen demonstrate a common bile duct stent in satisfactory position. Mult iple surgical clips are present from previous cholecystectomy. The visualized portions of the liver, spleen, and adrenals are otherwise normal. There are degenerative changes of both glenohumeral joints. There has been previous vertebroplasty a t the L1 level. There are old compression fractures of T6 and T11 vertebrae. IMPRESSION: 1. Tunneled right internal jugular vein dialysis catheter in satisfactory position. 2. Extensive right-sided pneumonia, slightly improved. 3. Moderate atelectasis at the left lung base, slightly improved. 4. Mild pneumonia in the left upper lobe posteriorly, slightly improved. 5. Atherosclerosis. 6. Coronary artery calcification. 7. Moderate bilateral pleural effusions, slightly smaller than seen previously.. 8. Common bile duct stent in satisfactory position. 9. Previous cholecystectomy. 10. Degenerative changes of the glenohumeral joints. 11. Previous vertebroplasty at the L1 level. 12. Old compression fractures of T6 and T11 vertebrae. RPTAT: QQ .Salazar Cruz MD, MD Date Time Electronically viewed and signed by .Salazar Cruz MD, on 08/10/2016 16:57 .R/
[2016-08-10] MEDS ORDERED: WARFARIN 2 MG TAB PO ONE (17:00)
--- NOTE | 2016-08-10 17:20 | CONS ---
Date/Time of Note Date/Time of Note DATE: 08/10/16 TIME: 17:18 Consult Date/Type/Reason Admit Date/Time Jul 31, 2016 at 19:59 Initial Consult Date 08/06/16 Type of Consultation: Cardiac and Vascular Intervent Ordering Provider: BRYANT PERALTA Objective Vital Signs Date Time Temp Pulse Resp B/P Pulse Ox O2 Delivery O2 Flow Rate FiO2 08/10/16 16:12 87 08/10/16 15:55 98.6 20 120/57 91 08/10/16 13:44 Nasal Cannula 6.0 Intake and Output 08/09/16 08/09/16 08/10/16 15:00 23:00 07:00 Intake Total 50 ml 1130 ml 960 ml Output Total 3500 ml Balance 50 ml -2370 ml 960 ml Results/Medications Result Diagram: 08/10/16 0650 08/10/16 0650 Results 24 hrs Laboratory Tests Test 08/09/16 22:10 08/10/16 02:05 08/10/16 05:45 08/10/16 06:50 Bedside Glucose 152 115 139 White Blood Count 15.2 H Red Blood Count 3.36 L Hemoglobin 9.8 L Hematocrit 31.3 L Mean Corpuscular Volume 93.2 Mean Corpuscular Hemoglobin 29.2 Mean Corpuscular Hemoglobin Concent 31.3 L Red Cell Distribution Width 14.9 H Platelet Count 89 L Mean Platelet Volume 11.4 H Neutrophils % 86.0 H Band Neutrophils % 4.0 Lymphocytes % 5.0 L Monocytes % 5.0 Eosinophils % Nucleated Red Blood Cells % 5.0 H Neutrophils # 13.1 H Lymphocytes # 0.8 Monocytes # 0.8 Eosinophils # Platelet Estimate PLT APPEAR DECREASED Prothrombin Time 14.9 H Prothrombin Time Ratio 1.2 INR International Normalized Ratio 1.16 Sodium Level 137 Potassium Level 4.3 Chloride Level 97 Carbon Dioxide Level 27 Anion Gap 17 H Blood Urea Nitrogen 59 #H Creatinine 3.90 #H Glucose Level 142 Calcium Level 9.2 Test 08/10/16 07:43 08/10/16 07:51 08/10/16 11:26 Bedside Glucose 144 220 Blood Gas Specimen Source Blood arterial Arterial Blood Date Drawn 08/10/2016 8:00:13 AM Arterial Blood pH (Temp corrected) 7.426 Arterial Blood pCO2 (Temp correct) 43.1 Arterial Blood pO2 (Temp corrected) 75.3 L Arterial Blood HCO3 27.7 H Arterial Blood Base Excess 3.0 Arterial Blood Oxygen Saturation 95.5 Chris Test ACCEPTAB Arterial Blood Gas Puncture Site Right Radial Arterial Blood Carboxyhemoglobin 0.3 Arterial Blood Methemoglobin 0.1 Blood Gas A-a O2 Differential 370.2 H Oxyhemoglobin Percent 95.1 Total Hemoglobin 11.1 L Blood Gas Temperature 37.0 Blood Gas Modality MASK - SIMPLE FiO2 69.0 Blood Gas Notified Whom RT Blood Gas Notified Time 08/10/2016 8:07:41 AM Medications Current Medications Amlodipine Besylate (Norvasc) 5 mg DAILY PO Last administered on 08/10/16 09:25 ; Admin Dose 5 MG; Start 08/01/16 at 09:00 Atorvastatin Calcium (Lipitor) 40 mg HS PO Last administered on 08/09/16 22:13 ; Admin Dose 40 MG; Start 08/01/16 at 21:00 Calcitriol (Rocaltrol) 0.25 mcg DAILY PO Last administered on 08/10/16 09:25; Admin Dose 0.25 MCG; Start 08/01/16 at 09:00 Calcium/Vitamin D (Oyster Shell/ Vit-D (500/200)) 1 tab BID PO Last administered on 08/10/16 09:25; Admin Dose 1 TAB; Start 08/01/16 at 09:00 Hydralazine HCl (Apresoline) 50 mg Q8 PO Last administered on 08/10/16 14:56; Admin Dose 50 MG; Start 08/01/16 at 06:00 Metoprolol Tartrate (Lopressor) 25 mg BID PO Last administered on 08/10/16 09: 25; Admin Dose 25 MG; Start 08/01/16 at 09:00 Paroxetine HCl (Paxil) 10 mg DAILY PO Last administered on 08/10/16 09:26; Admin Dose 10 MG; Start 08/01/16 at 09:00 Acetaminophen (Tylenol Tab) 650 mg Q4H PRN PO PAIN AND OR ELEVATED TEMP Last administered on 08/09/16 13:51; Admin Dose 650 MG; Start 08/01/16 at 00:30 Hydralazine HCl (Apresoline) 20 mg Q6H PRN IV ELEVATED BLOOD PRESSURE Last administered on 08/09/16 03:50; Admin Dose 20 MG; Start 08/01/16 at 00:30 Guaifenesin/ Dextromethorphan (Robitussin Dm Liquid Cup) 10 ml Q4H PRN PO COUGH Last administered on 08/10/16 09:37; Admin Dose 10 ML; Start 08/01/16 at 00:30 Heparin Sodium (Porcine) (Heparin (5000 Units/0.5 ml)) 5,000 unit BID SC Last administered on 08/04/16 08:55; Admin Dose 5,000 UNIT; Start 08/01/16 at 09:00 ; Status Future Hold Diagnostic Test (Pha) (Accu-Chek) 1 ea 02 XX Last administered on 08/09/16 02: 20; Admin Dose 1 EA; Start 08/01/16 at 02:00 Epoetin Braden (Epogen (Esrd)) 6,000 units MoWeFr@17 SC Last administered on 22:23; Admin Dose 6,000 UNITS; Start 08/02/16 at 17:00 Miscellaneous Information 1 ea NOTE XX ; Start 08/02/16 at 12:30 Glucose (Glutose) 15 gm Q15M PRN PO DECREASED GLUCOSE; Start 08/02/16 at 12:30 Glucose (Glutose) 22.5 gm Q15M PRN PO DECREASED GLUCOSE; Start 08/02/16 at 12: 30 Dextrose (D50w Syringe) 25 ml Q15M PRN IV DECREASED GLUCOSE; Start 08/02/16 at 12:30 Dextrose (D50w Syringe) 50 ml Q15M PRN IV DECREASED GLUCOSE; Start 08/02/16 at 12:30 Glucagon (Glucagen) 1 mg Q15M PRN IM DECREASED GLUCOSE; Start 08/02/16 at 12:30 Glucose (Glutose) 15 gm Q15M PRN BUCCAL DECREASED GLUCOSE; Start 08/02/16 at 12 :30 Linagliptin 5 mg 5 mg DAILY PO Last administered on 08/10/16 09:25; Admin Dose 5 MG; Start 08/04/16 at 20:00 Cefepime HCl (Maxipime 1gm/50 ml (Pmx)) 50 ml @ 100 mls/hr Q12 IVPB Last administered on 08/10/16 09:26; Admin Dose 100 MLS/HR; Start 08/06/16 at 21:00 Methylprednisolone Sodium Succinate (Solu-Medrol) 20 mg Q8 IV Last administered on 08/10/16 14:55; Admin Dose 20 MG; Start 08/07/16 at 14:00 Salmeterol Xinafoate/ Fluticasone (Advair 250/50 Diskus) 1 inh BID INH Last administered on 08/10/16 09:26; Admin Dose 1 INH; Start 08/08/16 at 11:00 Montelukast Sodium (Singulair) 10 mg HS PO Last administered on 08/09/16 22:13 ; Admin Dose 10 MG; Start 08/08/16 at 21:00 Tiotropium [place] 1 inh 1 inh DAILY INH Last administered on 08/10/16 09:25; Admin Dose 1 INH; Start 08/08/16 at 11:00 Diltiazem HCl (Cardizem-D5W 125 Mg/125 ml Drip) 125 ml @ 5 mls/hr Q24H IV Last administered on 08/09/16 12:34; Admin Dose 5 MLS/HR; Start 08/09/16 at 12:00 Insulin Human NPH (Humulin N) 29 unit Q8 SC Last administered on 08/10/16 15:04 ; Admin Dose 29 UNIT; Start 08/09/16 at 14:00 Diltiazem HCl 120 mg 120 mg DAILY PO Last administered on 08/10/16 09:26; Admin Dose 120 MG; Start 08/09/16 at 13:06 Piperacillin Sod/ Tazobactam Sod (Zosyn 2.25gm/ 50ml (Pmx)) 50 ml @ 100 mls/hr Q8 IVPB Last administered on 08/10/16 14:55; Admin Dose 100 MLS/HR; Start at 14:00 Assessment/Plan Chief Complaint/Hosp Course Patient is 85 year old F with PMH of HTN, HLD, CKD now presentezd with SOB and ESRD was started on HD. She already has been planning for Stage IV CKD and had fistula done already. Pt does have some SOB. significant Leg edema. Likely realted to CKD and Diastolic HF. LVEF is nl. Problems: Additional Assessment/Plan Afib - Rate contorleed on cardizem drip will stop it. PO cardizem Coumadin PAD: stable pt will .fu with me out pt Pulm on case likey PNA vs bronchitis. HD by nephro. d/w family at bedside will ./SIERRA Don MD Aug 10, 2016 17:20
--- NOTE | 2016-08-10 19:30 | CONS ---
Date/Time of Note Date/Time of Note DATE: 08/10/16 TIME: 19:28 Assessment/Plan Assessment/Plan Problems: (1) Type 2 diabetes mellitus with hyperglycemia Status: Acute Comment: Glucose levels mostly in goal range. Will cont. current NPH dose of 29 units w/ medrol 20 mg IV q8. Will follow and reeval tomorrow. Qualifiers: Diabetes mellitus longterm insulin use: without terminal worker use Qualified Code: E11.65 - Type 2 diabetes mellitus with hyperglycemia, without long-term current use of insulin Consultation Date/Type/Reason Admit Date/Time Jul 31, 2016 at 19:59 Initial Consult Date 08/06/16 Type of Consultation: Endocrinology Reason for Consultation T2DM OOC Referring Provider: BRYANT PERALTA 24 HR Interval Summary Constitutional: requiring O2 Detailed Summary Respiratory: cough, shortness of breath, wheezing Cardiovascular: orthopenea Gastrointestinal: no complaints Genitourinary: no complaints Musculoskeletal: no complaints Neurologic: no complaints Exam/Review of Systems Vital Signs Vitals VS - Last 72 Hours, by Label Date Time Temp Pulse Resp B/P Pulse Ox O2 Delivery O2 Flow Rate FiO2 08/10/16 16:12 87 08/10/16 15:55 98.6 79 20 120/57 91 08/10/16 13:44 87 28 94 Nasal Cannula 6.0 08/10/16 12:34 79 08/10/16 12:00 98.0 75 20 123/63 96 08/10/16 08:09 74 08/10/16 08:07 Simple Mask 10.0 08/10/16 07:45 103 32 88 Simple Mask 10.0 08/10/16 07:33 98.2 81 20 111/56 97 08/10/16 04:01 78 08/10/16 03:27 98.6 82 20 122/60 97 08/10/16 02:50 80 20 95 6.0 08/10/16 02:49 6.0 08/10/16 01:30 95 6.0 08/10/16 00:17 87 08/09/16 23:59 97.5 88 20 132/60 91 08/09/16 22:10 88 08/09/16 22:10 90 18 08/09/16 21:40 86 08/09/16 21:16 Simple Mask 10.0 08/09/16 21:10 96 08/09/16 20:40 95 08/09/16 20:12 90 08/09/16 20:10 100 08/09/16 19:58 97.6 88 18 122/59 96 08/09/16 19:58 90 21 96 10.0 08/09/16 19:56 96 10.0 08/09/16 19:40 95 08/09/16 19:25 91 08/09/16 19:10 81 08/09/16 19:10 91 18 08/09/16 16:19 120 08/09/16 15:48 98.3 117 20 131/72 96 08/09/16 14:17 134 18 94 Simple Mask 10.0 08/09/16 12:08 115 08/09/16 12:00 98.6 114 20 148/72 92 08/09/16 08:30 Nasal Cannula 5.0 08/09/16 08:21 133 08/09/16 08:10 Simple Mask 10.0 08/09/16 07:40 136 18 99 Simple Mask 10.0 08/09/16 07:40 10.0 08/09/16 07:30 98.0 115 20 120/55 98 08/09/16 05:30 130 120/57 08/09/16 04:14 98.1 103 16 179/76 90 08/09/16 04:07 118 08/09/16 03:36 6.0 08/09/16 03:33 156 08/09/16 01:27 109 18 93 Nasal Cannula 6.0 08/09/16 00:19 114 08/09/16 00:03 97.9 115 16 160/72 90 08/08/16 20:28 106 08/08/16 20:08 112 18 91 Nasal Cannula 6.0 08/08/16 20:07 6.0 08/08/16 20:00 Nasal Cannula 5.0 08/08/16 20:00 97.9 98 17 133/73 93 08/08/16 16:05 106 08/08/16 15:30 98.2 117 18 165/72 91 08/08/16 14:15 6.0 08/08/16 14:12 93 20 95 6.0 08/08/16 12:02 96 08/08/16 11:10 98.6 104 20 154/70 95 08/08/16 08:20 96 08/08/16 08:00 Nasal Cannula 5.0 08/08/16 07:54 98.6 104 20 135/60 98 08/08/16 07:33 100 22 96 Nasal Cannula 6.0 08/08/16 04:25 104 08/08/16 03:47 98.3 84 20 139/69 96 08/08/16 01:05 89 20 93 Nasal Cannula 6.0 08/08/16 00:15 98.2 98 18 131/61 94 08/08/16 00:09 94 08/07/16 20:14 95 08/07/16 20:05 98.3 95 18 138/63 94 08/07/16 20:00 Nasal Cannula 5.0 08/07/16 19:39 6.0 08/07/16 19:39 92 18 93 Nasal Cannula 6.0 Vital Signs Date Time Temp Pulse Resp B/P Pulse Ox O2 Delivery O2 Flow Rate FiO2 08/10/16 16:12 87 08/10/16 15:55 98.6 20 120/57 91 08/10/16 13:44 Nasal Cannula 6.0 Intake and Output 08/09/16 08/09/16 08/10/16 15:00 23:00 07:00 Intake Total 50 ml 1130 ml 960 ml Output Total 3500 ml Balance 50 ml -2370 ml 960 ml Exam Constitutional: alert, obese, oriented Respiratory: crackles/rales, labored breathing, wheezing Cardiovascular: nl pulses, regular rate and rhythm, No edema, No murmurs/extra sounds, No rub Gastrointestinal: bowel sounds, nl liver, spleen, non-tender, soft, No mass, No rebound or guarding Musculoskeletal: nl extremities to inspection Extremities: normal pulses, No clubbing, No cyanosis, No edema 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: PUBLIC RELATIONS ASSISTANT II-XII intact, nl mental status, nl speech, nl strength Additional Comments Bedside Glucose - 72 Hours Test 08/07/16 21:46 08/08/16 02:06 08/08/16 05:26 08/08/16 08:07 Bedside Glucose 300mg/dL (70-220) H 237mg/dL (70-220) H 225mg/dL (70-220) H 217mg/dL (70-220) Test 08/08/16 11:05 08/08/16 17:40 08/08/16 21:41 08/09/16 04:58 Bedside Glucose 292mg/dL (70-220) H 186mg/dL (70-220) 216mg/dL (70-220) 169mg/dL (70-220) Test 08/09/16 08:00 08/09/16 12:03 08/09/16 16:58 08/09/16 22:10 Bedside Glucose 152mg/dL (70-220) 190mg/dL (70-220) 169mg/dL (70-220) 152mg/dL (70-220) Test 08/10/16 02:05 08/10/16 05:45 08/10/16 07:43 08/10/16 11:26 Bedside Glucose 115mg/dL (70-220) 139mg/dL (70-220) 144mg/dL (70-220) 220mg/dL (70-220) Test 08/10/16 17:44 Bedside Glucose 185mg/dL (70-220) Results Result Diagram: 08/10/16 0650 08/10/16 0650 Results 24 hrs Laboratory Tests Test 08/09/16 22:10 08/10/16 02:05 08/10/16 05:45 08/10/16 06:50 Bedside Glucose 152 115 139 White Blood Count 15.2 H Red Blood Count 3.36 L Hemoglobin 9.8 L Hematocrit 31.3 L Mean Corpuscular Volume 93.2 Mean Corpuscular Hemoglobin 29.2 Mean Corpuscular Hemoglobin Concent 31.3 L Red Cell Distribution Width 14.9 H Platelet Count 89 L Mean Platelet Volume 11.4 H Neutrophils % 86.0 H Band Neutrophils % 4.0 Lymphocytes % 5.0 L Monocytes % 5.0 Eosinophils % Nucleated Red Blood Cells % 5.0 H Neutrophils # 13.1 H Lymphocytes # 0.8 Monocytes # 0.8 Eosinophils # Platelet Estimate PLT APPEAR DECREASED Prothrombin Time 14.9 H Prothrombin Time Ratio 1.2 INR International Normalized Ratio 1.16 Sodium Level 137 Potassium Level 4.3 Chloride Level 97 Carbon Dioxide Level 27 Anion Gap 17 H Blood Urea Nitrogen 59 #H Creatinine 3.90 #H Glucose Level 142 Calcium Level 9.2 Test 08/10/16 07:43 08/10/16 07:51 08/10/16 11:26 08/10/16 17:44 Bedside Glucose 144 220 185 Blood Gas Specimen Source Blood arterial Arterial Blood Date Drawn 08/10/2016 8:00:13 AM Arterial Blood pH (Temp corrected) 7.426 Arterial Blood pCO2 (Temp correct) 43.1 Arterial Blood pO2 (Temp corrected) 75.3 L Arterial Blood HCO3 27.7 H Arterial Blood Base Excess 3.0 Arterial Blood Oxygen Saturation 95.5 Chris Test ACCEPTAB Arterial Blood Gas Puncture Site Right Radial Arterial Blood Carboxyhemoglobin 0.3 Arterial Blood Methemoglobin 0.1 Blood Gas A-a O2 Differential 370.2 H Oxyhemoglobin Percent 95.1 Total Hemoglobin 11.1 L Blood Gas Temperature 37.0 Blood Gas Modality MASK - SIMPLE FiO2 69.0 Blood Gas Notified Whom RT Blood Gas Notified Time 08/10/2016 8:07:41 AM Test 08/10/16 18:36 Troponin I 0.062 Medications Medications Current Medications Atorvastatin Calcium (Lipitor) 40 mg HS PO Last administered on 08/09/16 22:13 ; Admin Dose 40 MG; Start 08/01/16 at 21:00 Calcitriol (Rocaltrol) 0.25 mcg DAILY PO Last administered on 08/10/16 09:25; Admin Dose 0.25 MCG; Start 08/01/16 at 09:00 Calcium/Vitamin D (Oyster Shell/ Vit-D (500/200)) 1 tab BID PO Last administered on 08/10/16 09:25; Admin Dose 1 TAB; Start 08/01/16 at 09:00 Hydralazine HCl (Apresoline) 50 mg Q8 PO Last administered on 08/10/16 14:56; Admin Dose 50 MG; Start 08/01/16 at 06:00 Metoprolol Tartrate (Lopressor) 25 mg BID PO Last administered on 08/10/16 09: 25; Admin Dose 25 MG; Start 08/01/16 at 09:00 Paroxetine HCl (Paxil) 10 mg DAILY PO Last administered on 08/10/16 09:26; Admin Dose 10 MG; Start 08/01/16 at 09:00 Acetaminophen (Tylenol Tab) 650 mg Q4H PRN PO PAIN AND OR ELEVATED TEMP Last administered on 08/09/16 13:51; Admin Dose 650 MG; Start 08/01/16 at 00:30 Hydralazine HCl (Apresoline) 20 mg Q6H PRN IV ELEVATED BLOOD PRESSURE Last administered on 08/09/16 03:50; Admin Dose 20 MG; Start 08/01/16 at 00:30 Guaifenesin/ Dextromethorphan (Robitussin Dm Liquid Cup) 10 ml Q4H PRN PO COUGH Last administered on 08/10/16 09:37; Admin Dose 10 ML; Start 08/01/16 at 00:30 Heparin Sodium (Porcine) (Heparin (5000 Units/0.5 ml)) 5,000 unit BID SC Last administered on 08/04/16 08:55; Admin Dose 5,000 UNIT; Start 08/01/16 at 09:00 ; Status Future Hold Diagnostic Test (Pha) (Accu-Chek) 1 ea 02 XX Last administered on 08/09/16 02: 20; Admin Dose 1 EA; Start 08/01/16 at 02:00 Epoetin Braden (Epogen (Esrd)) 6,000 units MoWeFr@17 SC Last administered on 22:23; Admin Dose 6,000 UNITS; Start 08/02/16 at 17:00 Miscellaneous Information 1 ea NOTE XX ; Start 08/02/16 at 12:30 Glucose (Glutose) 15 gm Q15M PRN PO DECREASED GLUCOSE; Start 08/02/16 at 12:30 Glucose (Glutose) 22.5 gm Q15M PRN PO DECREASED GLUCOSE; Start 08/02/16 at 12: 30 Dextrose (D50w Syringe) 25 ml Q15M PRN IV DECREASED GLUCOSE; Start 08/02/16 at 12:30 Dextrose (D50w Syringe) 50 ml Q15M PRN IV DECREASED GLUCOSE; Start 08/02/16 at 12:30 Glucagon (Glucagen) 1 mg Q15M PRN IM DECREASED GLUCOSE; Start 08/02/16 at 12:30 Glucose (Glutose) 15 gm Q15M PRN BUCCAL DECREASED GLUCOSE; Start 08/02/16 at 12 :30 Linagliptin 5 mg 5 mg DAILY PO Last administered on 08/10/16 09:25; Admin Dose 5 MG; Start 08/04/16 at 20:00 Cefepime HCl (Maxipime 1gm/50 ml (Pmx)) 50 ml @ 100 mls/hr Q12 IVPB Last administered on 08/10/16 09:26; Admin Dose 100 MLS/HR; Start 08/06/16 at 21:00 Methylprednisolone Sodium Succinate (Solu-Medrol) 20 mg Q8 IV Last administered on 08/10/16 14:55; Admin Dose 20 MG; Start 08/07/16 at 14:00 Salmeterol Xinafoate/ Fluticasone (Advair 250/50 Diskus) 1 inh BID INH Last administered on 08/10/16 09:26; Admin Dose 1 INH; Start 08/08/16 at 11:00 Montelukast Sodium (Singulair) 10 mg HS PO Last administered on 08/09/16 22:13 ; Admin Dose 10 MG; Start 08/08/16 at 21:00 Tiotropium [place] 1 inh 1 inh DAILY INH Last administered on 08/10/16 09:25; Admin Dose 1 INH; Start 08/08/16 at 11:00 Diltiazem HCl (Cardizem-D5W 125 Mg/125 ml Drip) 125 ml @ 5 mls/hr Q24H IV Last administered on 08/09/16 12:34; Admin Dose 5 MLS/HR; Start 08/09/16 at 12:00 Insulin Human NPH 29 unit 29 unit Q8 SC Last administered on 08/10/16 15:04; Admin Dose 29 UNIT; Start 08/09/16 at 14:00 Piperacillin Sod/ Tazobactam Sod (Zosyn 2.25gm/ 50ml (Pmx)) 50 ml @ 100 mls/hr Q8 IVPB Last administered on 08/10/16 14:55; Admin Dose 100 MLS/HR; Start at 14:00 Diltiazem HCl (Cardizem Cd) 180 mg DAILY PO ; Start 08/11/16 at 09:00 JUDAH NOE MD Aug 10, 2016 19:30
[2016-08-10] MEDS: MONTELUKAST 10 MG TAB PO SCH (21:28)
[2016-08-10] MEDS: ATORVASTATIN 40 MG TAB PO SCH (21:28)
--- NOTE | 2016-08-10 21:32 | CONS ---
Date/Time of Note Date/Time of Note DATE: 08/10/16 TIME: 21:31 Assessment/Plan Assessment/Plan Chief Complaint/Hosp Course IMPRESSION: 1. End-stage renal disease stage V. 2. Fluid overload. 3. Pulmonary edema.better 4. Anemia of chronic kidney disease. 5. History of diabetes mellitus. 6. 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 7. AV fistula on the left upper extremity. 8 pneumonia plan continue hd DAILY fluis res Problems: Consultation Date/Type/Reason Admit Date/Time Jul 31, 2016 at 19:59 Initial Consult Date 08/01/16 Type of Consultation: RENAL Referring Provider: BRYANT PERALTA 24 HR Interval Summary Subjective hx not possible: other (SOB WILL NEED HD AM) Exam/Review of Systems Vital Signs Vitals Vital Signs Date Time Temp Pulse Resp B/P Pulse Ox O2 Delivery O2 Flow Rate FiO2 08/10/16 21:25 98 111/55 95 Nasal Cannula 6.0 08/10/16 20:50 18 08/10/16 20:00 98.8 Intake and Output 08/09/16 08/09/16 08/10/16 15:00 23:00 07:00 Intake Total 50 ml 1130 ml 960 ml Output Total 3500 ml Balance 50 ml -2370 ml 960 ml Exam Respiratory: congested cough, diminished breath sounds Cardiovascular: regular rate and rhythm Gastrointestinal: bowel sounds (+), soft Extremities: edema (+) Results Result Diagram: 08/10/16 0650 08/10/16 0650 Results 24 hrs Laboratory Tests Test 08/09/16 22:10 08/10/16 02:05 08/10/16 05:45 08/10/16 06:50 Bedside Glucose 152 115 139 White Blood Count 15.2 H Red Blood Count 3.36 L Hemoglobin 9.8 L Hematocrit 31.3 L Mean Corpuscular Volume 93.2 Mean Corpuscular Hemoglobin 29.2 Mean Corpuscular Hemoglobin Concent 31.3 L Red Cell Distribution Width 14.9 H Platelet Count 89 L Mean Platelet Volume 11.4 H Neutrophils % 86.0 H Band Neutrophils % 4.0 Lymphocytes % 5.0 L Monocytes % 5.0 Eosinophils % Nucleated Red Blood Cells % 5.0 H Neutrophils # 13.1 H Lymphocytes # 0.8 Monocytes # 0.8 Eosinophils # Platelet Estimate PLT APPEAR DECREASED Prothrombin Time 14.9 H Prothrombin Time Ratio 1.2 INR International Normalized Ratio 1.16 Sodium Level 137 Potassium Level 4.3 Chloride Level 97 Carbon Dioxide Level 27 Anion Gap 17 H Blood Urea Nitrogen 59 #H Creatinine 3.90 #H Glucose Level 142 Calcium Level 9.2 Test 08/10/16 07:43 08/10/16 07:51 08/10/16 11:26 08/10/16 17:44 Bedside Glucose 144 220 185 Blood Gas Specimen Source Blood arterial Arterial Blood Date Drawn 08/10/2016 8:00:13 AM Arterial Blood pH (Temp corrected) 7.426 Arterial Blood pCO2 (Temp correct) 43.1 Arterial Blood pO2 (Temp corrected) 75.3 L Arterial Blood HCO3 27.7 H Arterial Blood Base Excess 3.0 Arterial Blood Oxygen Saturation 95.5 Chris Test ACCEPTAB Arterial Blood Gas Puncture Site Right Radial Arterial Blood Carboxyhemoglobin 0.3 Arterial Blood Methemoglobin 0.1 Blood Gas A-a O2 Differential 370.2 H Oxyhemoglobin Percent 95.1 Total Hemoglobin 11.1 L Blood Gas Temperature 37.0 Blood Gas Modality MASK - SIMPLE FiO2 69.0 Blood Gas Notified Whom RT Blood Gas Notified Time 08/10/2016 8:07:41 AM Test 08/10/16 18:36 Troponin I 0.062 Medications Medications Current Medications Atorvastatin Calcium (Lipitor) 40 mg HS PO Last administered on 08/09/16 22:13 ; Admin Dose 40 MG; Start 08/01/16 at 21:00 Calcitriol (Rocaltrol) 0.25 mcg DAILY PO Last administered on 08/10/16 09:25; Admin Dose 0.25 MCG; Start 08/01/16 at 09:00 Calcium/Vitamin D (Oyster Shell/ Vit-D (500/200)) 1 tab BID PO Last administered on 08/10/16 09:25; Admin Dose 1 TAB; Start 08/01/16 at 09:00 Hydralazine HCl (Apresoline) 50 mg Q8 PO Last administered on 08/10/16 14:56; Admin Dose 50 MG; Start 08/01/16 at 06:00 Metoprolol Tartrate (Lopressor) 25 mg BID PO Last administered on 08/10/16 09: 25; Admin Dose 25 MG; Start 08/01/16 at 09:00 Paroxetine HCl (Paxil) 10 mg DAILY PO Last administered on 08/10/16 09:26; Admin Dose 10 MG; Start 08/01/16 at 09:00 Acetaminophen (Tylenol Tab) 650 mg Q4H PRN PO PAIN AND OR ELEVATED TEMP Last administered on 08/09/16 13:51; Admin Dose 650 MG; Start 08/01/16 at 00:30 Hydralazine HCl (Apresoline) 20 mg Q6H PRN IV ELEVATED BLOOD PRESSURE Last administered on 08/09/16 03:50; Admin Dose 20 MG; Start 08/01/16 at 00:30 Guaifenesin/ Dextromethorphan (Robitussin Dm Liquid Cup) 10 ml Q4H PRN PO COUGH Last administered on 08/10/16 09:37; Admin Dose 10 ML; Start 08/01/16 at 00:30 Heparin Sodium (Porcine) (Heparin (5000 Units/0.5 ml)) 5,000 unit BID SC Last administered on 08/04/16 08:55; Admin Dose 5,000 UNIT; Start 08/01/16 at 09:00 ; Status Future Hold Diagnostic Test (Pha) (Accu-Chek) 1 ea 02 XX Last administered on 08/09/16 02: 20; Admin Dose 1 EA; Start 08/01/16 at 02:00 Epoetin Braden (Epogen (Esrd)) 6,000 units MoWeFr@17 SC Last administered on 22:23; Admin Dose 6,000 UNITS; Start 08/02/16 at 17:00 Miscellaneous Information 1 ea NOTE XX ; Start 08/02/16 at 12:30 Glucose (Glutose) 15 gm Q15M PRN PO DECREASED GLUCOSE; Start 08/02/16 at 12:30 Glucose (Glutose) 22.5 gm Q15M PRN PO DECREASED GLUCOSE; Start 08/02/16 at 12: 30 Dextrose (D50w Syringe) 25 ml Q15M PRN IV DECREASED GLUCOSE; Start 08/02/16 at 12:30 Dextrose (D50w Syringe) 50 ml Q15M PRN IV DECREASED GLUCOSE; Start 08/02/16 at 12:30 Glucagon (Glucagen) 1 mg Q15M PRN IM DECREASED GLUCOSE; Start 08/02/16 at 12:30 Glucose (Glutose) 15 gm Q15M PRN BUCCAL DECREASED GLUCOSE; Start 08/02/16 at 12 :30 Linagliptin 5 mg 5 mg DAILY PO Last administered on 08/10/16 09:25; Admin Dose 5 MG; Start 08/04/16 at 20:00 Cefepime HCl (Maxipime 1gm/50 ml (Pmx)) 50 ml @ 100 mls/hr Q12 IVPB Last administered on 08/10/16 09:26; Admin Dose 100 MLS/HR; Start 08/06/16 at 21:00 Methylprednisolone Sodium Succinate (Solu-Medrol) 20 mg Q8 IV Last administered on 08/10/16 14:55; Admin Dose 20 MG; Start 08/07/16 at 14:00 Salmeterol Xinafoate/ Fluticasone (Advair 250/50 Diskus) 1 inh BID INH Last administered on 08/10/16 09:26; Admin Dose 1 INH; Start 08/08/16 at 11:00 Montelukast Sodium (Singulair) 10 mg HS PO Last administered on 08/09/16 22:13 ; Admin Dose 10 MG; Start 08/08/16 at 21:00 Tiotropium [place] 1 inh 1 inh DAILY INH Last administered on 08/10/16 09:25; Admin Dose 1 INH; Start 08/08/16 at 11:00 Diltiazem HCl (Cardizem-D5W 125 Mg/125 ml Drip) 125 ml @ 5 mls/hr Q24H IV Last administered on 08/09/16 12:34; Admin Dose 5 MLS/HR; Start 08/09/16 at 12:00 Insulin Human NPH 29 unit 29 unit Q8 SC Last administered on 08/10/16 15:04; Admin Dose 29 UNIT; Start 08/09/16 at 14:00 Piperacillin Sod/ Tazobactam Sod (Zosyn 2.25gm/ 50ml (Pmx)) 50 ml @ 100 mls/hr Q8 IVPB Last administered on 08/10/16 14:55; Admin Dose 100 MLS/HR; Start at 14:00 Diltiazem HCl (Cardizem Cd) 180 mg DAILY PO ; Start 08/11/16 at 09:00 DAT OLSON MD Aug 10, 2016 21:32
[2016-08-11] VITALS (24 sets, daily range): BP systolic 97–130; BP diastolic 50–67; PULSE 71–129; RESP 17–20
[2016-08-11] MEDS: ACCU-CHEK XX SCH (05:50)
[2016-08-11] MEDS: PIPER-TAZO 2.25 GM (PMX) 50 ML IVPB SCH ×3 (05:53→22:48)
[2016-08-11] MEDS: FUROSEMIDE 40 MG INJ IV SCH ×2 (05:53→17:45)
[2016-08-11] MEDS: METHYLPREDNISOLONE 40 MG INJ IV SCH ×2 (05:53→17:44)
[2016-08-11] MEDS: NPH, HUMAN INSULIN ISOPHANE 3ML VIAL SC SCH ×3 (06:17→23:00)
[2016-08-11 07:30] LABS: INR 1.23; PROTIME 15.6 Sec (12.2-14.2); PT RATIO 1.2
[2016-08-11] MEDS: ALBUTEROL/IPRATROPIUM (NEB) 3 ML AMP HHN SCH ×3 (07:50→20:37)
[2016-08-11] MEDS: INSULIN ASPART [NOVOLOG] 3 ML PEN SC SCH ×4 (07:55→22:43)
[2016-08-11] MEDS: SALMETEROL/FLUTICASONE 250/50 INHA INH SCH ×2 (08:43→21:27)
[2016-08-11] MEDS: CEFEPIME 1GM/50 ML (PMX) 50 ML IVPB SCH (08:44)
[2016-08-11] MEDS: DILTIAZEM (CD) 180 MG CAP PO SCH (08:45)
[2016-08-11] MEDS: PAROXETINE 10 MG TAB PO SCH (08:46)
[2016-08-11] MEDS: CALCITRIOL 0.25 MCG CAP PO SCH (08:46)
[2016-08-11] MEDS: CALCIUM/VITAMIN D (500/200) TAB PO SCH ×2 (08:46→21:21)
[2016-08-11] MEDS: METOPROLOL 25 MG TAB PO SCH ×2 (08:46→21:21)
[2016-08-11] MEDS: LINAGLIPTIN 5 MG TABLET PO SCH (08:47)
[2016-08-11] MEDS: TIOTROPIUM 18 MCG CAPSULE INHA DEV INH SCH (08:55)
[2016-08-11] MEDS: DILTIAZEM-D5W 125MG/125ML DRIP 125 ML IV SCH (12:00)
--- NOTE | 2016-08-11 12:16 | CONS ---
Date/Time of Note Date/Time of Note DATE: 08/11/16 TIME: 12:14 Assessment/Plan Assessment/Plan Additional Assessment/Plan Assessment recommendations; 1. Patient admitted for right upper lobe pneumonia and acute bronchitis with wheezing. 2. Renal failure, on hemodialysis. Continue current treatment. Add vancomycin. Increase Solu-Medrol to 40 mg every 6 hours from 20 mg every 6 hours. Obtain follow-up chest x-ray in 48 hours. Consultation Date/Type/Reason Admit Date/Time Jul 31, 2016 at 19:59 Initial Consult Date 08/06/16 Type of Consultation: Pulmonary Referring Provider: BRYANT PERALTA 24 HR Interval Summary Free Text/Dictation Patient still complaining of shortness of breath off and on. Cough is improved. Denies any sputum production. Complains of occasional wheezing. General exam; elderly lady, awake alert currently in no distress. Exam/Review of Systems Vital Signs Vitals Vital Signs Date Time Temp Pulse Resp B/P Pulse Ox O2 Delivery O2 Flow Rate FiO2 08/11/16 12:04 88 08/11/16 11:54 97.6 20 111/64 91 08/11/16 08:43 Nasal Cannula 6.0 08/11/16 05:07 48 Intake and Output 08/10/16 08/10/16 08/11/16 15:00 23:00 07:00 Intake Total 50 ml 850 ml 50 ml Output Total 2300 ml Balance 50 ml -1450 ml 50 ml Exam HEENT exam; supple neck, no JVD. No lymphadenopathy. Midline trachea. No thyromegaly. Pharynx is clear. Pupils are small bilaterally. No neck masses. Chest examination of Chris diminished breath on lung bases bilaterally. More pronounced right lower lobe. Upper lobes are clear. S1-S2 audible, no murmurs. Regular rhythm. Abdomen examination; soft, no organomegaly. Nondistended. Bowel sounds audible. Extremity exam is; no peripheral edema. Pulses 1+ bilaterally. No clubbing. INDEPENDENT BEAUTY CONSULTANT examination; no focal deficit. Results Result Diagram: 08/10/16 0650 08/10/16 0650 Results 24 hrs Laboratory Tests Test 08/10/16 17:44 08/10/16 18:36 08/10/16 23:05 08/11/16 05:50 Bedside Glucose 185 85 129 Troponin I 0.062 Test 08/11/16 06:55 08/11/16 07:36 08/11/16 12:00 Prothrombin Time 15.6 H Prothrombin Time Ratio 1.2 INR International Normalized Ratio 1.23 Bedside Glucose 122 123 Medications Medications Current Medications Atorvastatin Calcium (Lipitor) 40 mg HS PO Last administered on 08/10/16 21:28 ; Admin Dose 40 MG; Start 08/01/16 at 21:00 Calcitriol (Rocaltrol) 0.25 mcg DAILY PO Last administered on 08/11/16 08:46; Admin Dose 0.25 MCG; Start 08/01/16 at 09:00 Calcium/Vitamin D (Oyster Shell/ Vit-D (500/200)) 1 tab BID PO Last administered on 08/11/16 08:46; Admin Dose 1 TAB; Start 08/01/16 at 09:00 Hydralazine HCl (Apresoline) 50 mg Q8 PO Last administered on 08/11/16 05:53; Admin Dose 50 MG; Start 08/01/16 at 06:00 Metoprolol Tartrate (Lopressor) 25 mg BID PO Last administered on 08/11/16 08: 46; Admin Dose 25 MG; Start 08/01/16 at 09:00 Paroxetine HCl (Paxil) 10 mg DAILY PO Last administered on 08/11/16 08:46; Admin Dose 10 MG; Start 08/01/16 at 09:00 Acetaminophen (Tylenol Tab) 650 mg Q4H PRN PO PAIN AND OR ELEVATED TEMP Last administered on 08/09/16 13:51; Admin Dose 650 MG; Start 08/01/16 at 00:30 Hydralazine HCl (Apresoline) 20 mg Q6H PRN IV ELEVATED BLOOD PRESSURE Last administered on 08/09/16 03:50; Admin Dose 20 MG; Start 08/01/16 at 00:30 Guaifenesin/ Dextromethorphan (Robitussin Dm Liquid Cup) 10 ml Q4H PRN PO COUGH Last administered on 08/10/16 09:37; Admin Dose 10 ML; Start 08/01/16 at 00:30 Heparin Sodium (Porcine) (Heparin (5000 Units/0.5 ml)) 5,000 unit BID SC Last administered on 08/04/16 08:55; Admin Dose 5,000 UNIT; Start 08/01/16 at 09:00 ; Status Future Hold Diagnostic Test (Pha) (Accu-Chek) 1 ea 02 XX Last administered on 08/11/16 05: 50; Admin Dose 1 EA; Start 08/01/16 at 02:00 Epoetin Braden (Epogen (Esrd)) 6,000 units MoWeFr@17 SC Last administered on 22:23; Admin Dose 6,000 UNITS; Start 08/02/16 at 17:00 Miscellaneous Information 1 ea NOTE XX ; Start 08/02/16 at 12:30 Glucose (Glutose) 15 gm Q15M PRN PO DECREASED GLUCOSE; Start 08/02/16 at 12:30 Glucose (Glutose) 22.5 gm Q15M PRN PO DECREASED GLUCOSE; Start 08/02/16 at 12: 30 Dextrose (D50w Syringe) 25 ml Q15M PRN IV DECREASED GLUCOSE; Start 08/02/16 at 12:30 Dextrose (D50w Syringe) 50 ml Q15M PRN IV DECREASED GLUCOSE; Start 08/02/16 at 12:30 Glucagon (Glucagen) 1 mg Q15M PRN IM DECREASED GLUCOSE; Start 08/02/16 at 12:30 Glucose (Glutose) 15 gm Q15M PRN BUCCAL DECREASED GLUCOSE; Start 08/02/16 at 12 :30 Linagliptin (Tradjenta) 5 mg DAILY PO Last administered on 08/11/16 08:47; Admin Dose 5 MG; Start 08/04/16 at 20:00 Salmeterol Xinafoate/ Fluticasone (Advair 250/50 Diskus) 1 inh BID INH Last administered on 08/11/16 08:43; Admin Dose 1 INH; Start 08/08/16 at 11:00 Montelukast Sodium (Singulair) 10 mg HS PO Last administered on 08/10/16 21:28 ; Admin Dose 10 MG; Start 08/08/16 at 21:00 Tiotropium [place] 1 inh 1 inh DAILY INH Last administered on 08/10/16 09:25; Admin Dose 1 INH; Start 08/08/16 at 11:00 Diltiazem HCl (Cardizem-D5W 125 Mg/125 ml Drip) 125 ml @ 5 mls/hr Q24H IV Last administered on 08/09/16 12:34; Admin Dose 5 MLS/HR; Start 08/09/16 at 12:00 Insulin Human NPH 29 unit 29 unit Q8 SC Last administered on 08/11/16 06:17; Admin Dose 29 UNIT; Start 08/09/16 at 14:00 Piperacillin Sod/ Tazobactam Sod (Zosyn 2.25gm/ 50ml (Pmx)) 50 ml @ 100 mls/hr Q8 IVPB Last administered on 08/11/16 05:53; Admin Dose 100 MLS/HR; Start at 14:00 Diltiazem HCl (Cardizem Cd) 180 mg DAILY PO Last administered on 08/11/16 08:45 ; Admin Dose 180 MG; Start 08/11/16 at 09:00 Methylprednisolone Sodium Succinate (Solu-Medrol) 40 mg Q6 IV ; Start 08/11/16 at 18:00; Status KOFI CARRIZALES Aug 11, 2016 12:16
[2016-08-11] MEDS ORDERED: VANCOMYCIN IV PER PHARMACY XX SCH (12:30)
[2016-08-11] MEDS ORDERED: VANCOMYCIN 1.5 GM in SOD CHLORIDE 0.9% 250 ML IVPB ONE (14:00)
--- NOTE | 2016-08-11 14:08 | PN ---
Date/Time of Note Date/Time of Note DATE: 08/11/16 TIME: 14:06 Assessment/Plan VTE Prophylaxis VTE Prophylaxis Intervention: SCD's Lines/Catheters IV Catheter Type (from [facility]): [place] [facility] Urinary Cath still in place: No Assessment/Plan Chief Complaint/Hosp Course Assessment and plan: -Acute respiratory insufficiency secondary to pneumonia and COPD exacerbation. - Right-sided pneumonia per CT scan, continue cefepime. - A-fib with RVR, continue Cardizem, patient is followed by Dr. Stuart in cardiology. - COPD exacerbation, continue breathing treatment. Dr. Natarajan is following in pulmonology consultation - End-stage renal disease stage V. Dr. Leon is following in nephrology consultation. Continue to hemodialysis via right femoral hemodialysis catheter. - Pulmonary edema. Continue diuresis. - Anemia of chronic kidney disease. Continue Epogen. - Diabetes mellitus type [address] Garcia is following an endocrinology consultation. Continue NPH. - Hypertension, continue Norvasc. -Left upper extremity AV fistula, non-matured -Status post right hemodialysis non-tunneled catheter placement by Dr. Manning on 08/03. S/p R IJ tunneled hemodialysis catheter placement. Further recommendations based on clinical course. Plan of care discussed with Dr. Flores Problems: Subjective 24 Hr Interval Summary Free Text/Dictation Patient is currently undergoing dialysis, refused BiPAP earlier, patient complains of shortness of breath with labored breathing on facemask, will resume BiPAP. Exam/Review of Systems Vital Signs Vitals Vital Signs Date Time Temp Pulse Resp B/P Pulse Ox O2 Delivery O2 Flow Rate FiO2 08/11/16 13:35 85 96 48 08/11/16 11:54 97.6 20 111/64 08/11/16 08:43 Nasal Cannula 6.0 Intake and Output 08/10/16 08/10/16 08/11/16 15:00 23:00 07:00 Intake Total 50 ml 850 ml 50 ml Output Total 2300 ml Balance 50 ml -1450 ml 50 ml Exam Constitutional: alert, oriented Psych: no complaints Head: atraumatic, normocephalic Eyes: nl conjunctiva ENMT: nl external ears & nose, nl lips & teeth Neck: non-tender, supple Respiratory: Rhonchi bilaterally Cardiovascular: nl pulses, regular rate and rhythm Gastrointestinal: non-tender, soft Musculoskeletal: nl extremities to inspection Extremities: normal pulses 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: DIRECTOR FACILITIES MAINTENANCE II-XII intact Additional Comments Left upper extremities with AV fistula with palpable thrill and audible bruit Right IJ permacath Results Result Diagram: 08/10/16 0650 08/10/16 0650 Results 24 hrs Laboratory Tests Test 08/10/16 17:44 08/10/16 18:36 08/10/16 23:05 08/11/16 05:50 Bedside Glucose 185 85 129 Troponin I 0.062 Test 08/11/16 06:55 08/11/16 07:36 08/11/16 12:00 Prothrombin Time 15.6 H Prothrombin Time Ratio 1.2 INR International Normalized Ratio 1.23 Bedside Glucose 122 123 Medications Medications Current Medications Atorvastatin Calcium (Lipitor) 40 mg HS PO Last administered on 08/10/16 21:28 ; Admin Dose 40 MG; Start 08/01/16 at 21:00 Calcitriol (Rocaltrol) 0.25 mcg DAILY PO Last administered on 08/11/16 08:46; Admin Dose 0.25 MCG; Start 08/01/16 at 09:00 Calcium/Vitamin D (Oyster Shell/ Vit-D (500/200)) 1 tab BID PO Last administered on 08/11/16 08:46; Admin Dose 1 TAB; Start 08/01/16 at 09:00 Hydralazine HCl (Apresoline) 50 mg Q8 PO Last administered on 08/11/16 05:53; Admin Dose 50 MG; Start 08/01/16 at 06:00 Metoprolol Tartrate (Lopressor) 25 mg BID PO Last administered on 08/11/16 08: 46; Admin Dose 25 MG; Start 08/01/16 at 09:00 Paroxetine HCl (Paxil) 10 mg DAILY PO Last administered on 08/11/16 08:46; Admin Dose 10 MG; Start 08/01/16 at 09:00 Acetaminophen (Tylenol Tab) 650 mg Q4H PRN PO PAIN AND OR ELEVATED TEMP Last administered on 08/09/16 13:51; Admin Dose 650 MG; Start 08/01/16 at 00:30 Hydralazine HCl (Apresoline) 20 mg Q6H PRN IV ELEVATED BLOOD PRESSURE Last administered on 08/09/16 03:50; Admin Dose 20 MG; Start 08/01/16 at 00:30 Guaifenesin/ Dextromethorphan (Robitussin Dm Liquid Cup) 10 ml Q4H PRN PO COUGH Last administered on 08/10/16 09:37; Admin Dose 10 ML; Start 08/01/16 at 00:30 Heparin Sodium (Porcine) (Heparin (5000 Units/0.5 ml)) 5,000 unit BID SC Last administered on 08/04/16 08:55; Admin Dose 5,000 UNIT; Start 08/01/16 at 09:00 ; Status Future Hold Diagnostic Test (Pha) (Accu-Chek) 1 ea 02 XX Last administered on 08/11/16 05: 50; Admin Dose 1 EA; Start 08/01/16 at 02:00 Epoetin Braden (Epogen (Esrd)) 6,000 units MoWeFr@17 SC Last administered on 22:23; Admin Dose 6,000 UNITS; Start 08/02/16 at 17:00 Miscellaneous Information 1 ea NOTE XX ; Start 08/02/16 at 12:30 Glucose (Glutose) 15 gm Q15M PRN PO DECREASED GLUCOSE; Start 08/02/16 at 12:30 Glucose (Glutose) 22.5 gm Q15M PRN PO DECREASED GLUCOSE; Start 08/02/16 at 12: 30 Dextrose (D50w Syringe) 25 ml Q15M PRN IV DECREASED GLUCOSE; Start 08/02/16 at 12:30 Dextrose (D50w Syringe) 50 ml Q15M PRN IV DECREASED GLUCOSE; Start 08/02/16 at 12:30 Glucagon (Glucagen) 1 mg Q15M PRN IM DECREASED GLUCOSE; Start 08/02/16 at 12:30 Glucose (Glutose) 15 gm Q15M PRN BUCCAL DECREASED GLUCOSE; Start 08/02/16 at 12 :30 Linagliptin (Tradjenta) 5 mg DAILY PO Last administered on 08/11/16 08:47; Admin Dose 5 MG; Start 08/04/16 at 20:00 Salmeterol Xinafoate/ Fluticasone (Advair 250/50 Diskus) 1 inh BID INH Last administered on 08/11/16 08:43; Admin Dose 1 INH; Start 08/08/16 at 11:00 Montelukast Sodium (Singulair) 10 mg HS PO Last administered on 08/10/16 21:28 ; Admin Dose 10 MG; Start 08/08/16 at 21:00 Tiotropium [place] 1 inh 1 inh DAILY INH Last administered on 08/10/16 09:25; Admin Dose 1 INH; Start 08/08/16 at 11:00 Diltiazem HCl (Cardizem-D5W 125 Mg/125 ml Drip) 125 ml @ 5 mls/hr Q24H IV Last administered on 08/09/16 12:34; Admin Dose 5 MLS/HR; Start 08/09/16 at 12:00 Insulin Human NPH 29 unit 29 unit Q8 SC Last administered on 08/11/16 06:17; Admin Dose 29 UNIT; Start 08/09/16 at 14:00 Piperacillin Sod/ Tazobactam Sod (Zosyn 2.25gm/ 50ml (Pmx)) 50 ml @ 100 mls/hr Q8 IVPB Last administered on 08/11/16 05:53; Admin Dose 100 MLS/HR; Start at 14:00 Diltiazem HCl (Cardizem Cd) 180 mg DAILY PO Last administered on 08/11/16 08:45 ; Admin Dose 180 MG; Start 08/11/16 at 09:00 Methylprednisolone Sodium Succinate 40 mg 40 mg Q6 IV ; Start 08/11/16 at 18:00 Vancomycin HCl/ Sodium Chloride (Vancocin/NS) 250 ml @ 83.333 mls/ hr ONCE ONCE IVPB ; Start 08/11/16 at 14:00; Stop 08/11/16 at 16:59 BRYANT PERALTA Aug 11, 2016 14:08
--- NOTE | 2016-08-11 15:39 | CONS ---
Date/Time of Note Date/Time of Note DATE: 08/11/16 TIME: 15:36 Assessment/Plan Assessment/Plan Chief Complaint/Hosp Course SUBJECTIVE: No events overnight. In HD, on Bipap, lying comfortably in bed INDWELLINGS: Right chest PermCath placed on 08/05/2016. MICROBIOLOGY: Blood culture growing gram-negative rods. ANTIMICROBIALS: Vanco Zosyn PHYSICAL EXAMINATION: GENERAL: This is a fragile, elderly woman who is alert, in no distress. HEENT: Head atraumatic, normocephalic. Sclerae anicteric. Buccal mucosa dry. NECK: Supple, trachea midline. CHEST: Rise symmetrical. Breath sounds diminished at the bases. HEART: S1, S2. ABDOMEN: Soft, bowel tones present. EXTREMITIES: Without cyanosis. ASSESSMENT: 1. Sepsis with Bacteremia and hypoxemic respiratory failure 2. Healthcare-acquired pneumonia. 3. End-stage renal disease, hemodialysis dependent. 4. Congestive heart failure. 5. Diabetes. 6. History of pancreatic stent placement. PLAN: Continue abx, f/u repeat bld cx, pulmonary rec-s noted==> continue steroids/BD's DW Staff Problems: Consultation Date/Type/Reason Admit Date/Time Jul 31, 2016 at 19:59 Initial Consult Date 08/06/16 Type of Consultation: ID Referring Provider: BRYANT PERALTA Exam/Review of Systems Vital Signs Vitals Vital Signs Date Time Temp Pulse Resp B/P Pulse Ox O2 Delivery O2 Flow Rate FiO2 08/11/16 14:40 102 97 48 08/11/16 11:54 97.6 20 111/64 08/11/16 08:43 Nasal Cannula 6.0 Intake and Output 08/10/16 08/10/16 08/11/16 15:00 23:00 07:00 Intake Total 50 ml 850 ml 50 ml Output Total 2300 ml Balance 50 ml -1450 ml 50 ml Results Result Diagram: 08/10/16 0650 08/10/16 0650 Results 24 hrs Laboratory Tests Test 08/10/16 17:44 08/10/16 18:36 08/10/16 23:05 08/11/16 05:50 Bedside Glucose 185 85 129 Troponin I 0.062 Test 08/11/16 06:55 08/11/16 07:36 08/11/16 12:00 Prothrombin Time 15.6 H Prothrombin Time Ratio 1.2 INR International Normalized Ratio 1.23 Bedside Glucose 122 123 Medications Medications Current Medications Atorvastatin Calcium (Lipitor) 40 mg HS PO Last administered on 08/10/16 21:28 ; Admin Dose 40 MG; Start 08/01/16 at 21:00 Calcitriol (Rocaltrol) 0.25 mcg DAILY PO Last administered on 08/11/16 08:46; Admin Dose 0.25 MCG; Start 08/01/16 at 09:00 Calcium/Vitamin D (Oyster Shell/ Vit-D (500/200)) 1 tab BID PO Last administered on 08/11/16 08:46; Admin Dose 1 TAB; Start 08/01/16 at 09:00 Hydralazine HCl (Apresoline) 50 mg Q8 PO Last administered on 08/11/16 05:53; Admin Dose 50 MG; Start 08/01/16 at 06:00 Metoprolol Tartrate (Lopressor) 25 mg BID PO Last administered on 08/11/16 08: 46; Admin Dose 25 MG; Start 08/01/16 at 09:00 Paroxetine HCl (Paxil) 10 mg DAILY PO Last administered on 08/11/16 08:46; Admin Dose 10 MG; Start 08/01/16 at 09:00 Acetaminophen (Tylenol Tab) 650 mg Q4H PRN PO PAIN AND OR ELEVATED TEMP Last administered on 08/09/16 13:51; Admin Dose 650 MG; Start 08/01/16 at 00:30 Hydralazine HCl (Apresoline) 20 mg Q6H PRN IV ELEVATED BLOOD PRESSURE Last administered on 08/09/16 03:50; Admin Dose 20 MG; Start 08/01/16 at 00:30 Guaifenesin/ Dextromethorphan (Robitussin Dm Liquid Cup) 10 ml Q4H PRN PO COUGH Last administered on 08/10/16 09:37; Admin Dose 10 ML; Start 08/01/16 at 00:30 Heparin Sodium (Porcine) (Heparin (5000 Units/0.5 ml)) 5,000 unit BID SC Last administered on 08/04/16 08:55; Admin Dose 5,000 UNIT; Start 08/01/16 at 09:00 ; Status Future Hold Diagnostic Test (Pha) (Accu-Chek) 1 02 XX Last administered on 08/11/16 05: 50; Admin Dose 1 EA; Start 08/01/16 at 02:00 Epoetin Braden (Epogen (Esrd)) 6,000 units MoWeFr@17 SC Last administered on 22:23; Admin Dose 6,000 UNITS; Start 08/02/16 at 17:00 Miscellaneous Information 1 ea NOTE XX ; Start 08/02/16 at 12:30 Glucose (Glutose) 15 gm Q15M PRN PO DECREASED GLUCOSE; Start 08/02/16 at 12:30 Glucose (Glutose) 22.5 gm Q15M PRN PO DECREASED GLUCOSE; Start 08/02/16 at 12: 30 Dextrose (D50w Syringe) 25 ml Q15M PRN IV DECREASED GLUCOSE; Start 08/02/16 at 12:30 Dextrose (D50w Syringe) 50 ml Q15M PRN IV DECREASED GLUCOSE; Start 08/02/16 at 12:30 Glucagon (Glucagen) 1 mg Q15M PRN IM DECREASED GLUCOSE; Start 08/02/16 at 12:30 Glucose (Glutose) 15 gm Q15M PRN BUCCAL DECREASED GLUCOSE; Start 08/02/16 at 12 :30 Linagliptin (Tradjenta) 5 mg DAILY PO Last administered on 08/11/16 08:47; Admin Dose 5 MG; Start 08/04/16 at 20:00 Salmeterol Xinafoate/ Fluticasone (Advair 250/50 Diskus) 1 inh BID INH Last administered on 08/11/16 08:43; Admin Dose 1 INH; Start 08/08/16 at 11:00 Montelukast Sodium (Singulair) 10 mg HS PO Last administered on 08/10/16 21:28 ; Admin Dose 10 MG; Start 08/08/16 at 21:00 Tiotropium [place] 1 inh 1 inh DAILY INH Last administered on 08/10/16 09:25; Admin Dose 1 INH; Start 08/08/16 at 11:00 Diltiazem HCl (Cardizem-D5W 125 Mg/125 ml Drip) 125 ml @ 5 mls/hr Q24H IV Last administered on 08/09/16 12:34; Admin Dose 5 MLS/HR; Start 08/09/16 at 12:00 Insulin Human NPH 29 unit 29 unit Q8 SC Last administered on 08/11/16 14:59; Admin Dose 29 UNIT; Start 08/09/16 at 14:00 Piperacillin Sod/ Tazobactam Sod (Zosyn 2.25gm/ 50ml (Pmx)) 50 ml @ 100 mls/hr Q8 IVPB Last administered on 08/11/16 15:01; Admin Dose 100 MLS/HR; Start at 14:00 Diltiazem HCl (Cardizem Cd) 180 mg DAILY PO Last administered on 08/11/16 08:45 ; Admin Dose 180 MG; Start 08/11/16 at 09:00 Methylprednisolone Sodium Succinate 40 mg 40 mg Q6 IV ; Start 08/11/16 at 18:00 Vancomycin HCl/ Sodium Chloride (Vancocin/NS) 250 ml @ 83.333 mls/ hr ONCE ONCE IVPB ; Start 08/11/16 at 14:00; Stop 08/11/16 at 16:59 NAHUN DOWNEY ELECTRICAL CONTINUITY TESTER Aug 11, 2016 15:39
[2016-08-11] MEDS: EPOETIN 3000 UNITS/1 ML INJ (ESRD) SC SCH (17:44)
--- NOTE | 2016-08-11 17:48 | CONS ---
Date/Time of Note Date/Time of Note DATE: 08/11/16 TIME: 17:46 Assessment/Plan Assessment/Plan Problems: (1) Type 2 diabetes mellitus with diabetic chronic kidney disease Status: Chronic Comment: Fair glycemic control. Cont. NPH 29 units q8 w/ medrol 20 mg IV q8. Will follow. 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 not on chronic dialysis, with long-term current use of insulin Consultation Date/Type/Reason Admit Date/Time Jul 31, 2016 at 19:59 Initial Consult Date 08/06/16 Type of Consultation: Endocrinology Reason for Consultation T2DM OOC Referring Provider: BRYANT PERALTA 24 HR Interval Summary Constitutional: requiring O2 Detailed Summary Respiratory: cough, shortness of breath Cardiovascular: orthopenea Gastrointestinal: no complaints Genitourinary: no complaints Musculoskeletal: no complaints Neurologic: no complaints Exam/Review of Systems Vital Signs Vitals VS - Last 72 Hours, by Label Date Time Temp Pulse Resp B/P Pulse Ox O2 Delivery O2 Flow Rate FiO2 08/11/16 16:06 95 08/11/16 15:54 98.5 99 20 118/56 92 08/11/16 14:40 102 97 48 08/11/16 14:10 129 08/11/16 13:40 105 08/11/16 13:35 85 96 48 08/11/16 13:10 99 08/11/16 12:40 104 08/11/16 12:10 105 08/11/16 12:04 88 08/11/16 11:54 97.6 88 20 111/64 91 08/11/16 11:53 97.5 88 20 111/64 91 08/11/16 11:40 89 08/11/16 11:40 105 22 08/11/16 08:43 Nasal Cannula 6.0 08/11/16 08:02 105 08/11/16 07:50 101 20 97 Nasal Cannula 6.0 08/11/16 07:26 97.5 94 20 126/61 90 08/11/16 05:07 95 96 48 08/11/16 04:11 92 08/11/16 04:02 98.6 96 18 130/65 92 08/11/16 00:53 6.0 08/11/16 00:06 71 08/11/16 00:03 97.6 76 17 97/50 94 08/10/16 23:01 6.0 08/10/16 21:25 98 111/55 95 Nasal Cannula 6.0 08/10/16 20:50 100 18 08/10/16 20:50 80 08/10/16 20:35 Nasal Cannula 6.0 08/10/16 20:20 90 08/10/16 20:19 81 22 95 Nasal Cannula 6.0 08/10/16 20:06 103 08/10/16 20:00 98.8 63 18 109/52 90 08/10/16 19:50 91 08/10/16 19:35 90 08/10/16 19:20 83 08/10/16 19:20 83 18 08/10/16 16:12 87 08/10/16 15:55 98.6 79 20 120/57 91 08/10/16 13:44 87 28 94 Nasal Cannula 6.0 08/10/16 12:34 79 08/10/16 12:00 98.0 75 20 123/63 96 08/10/16 08:09 74 08/10/16 08:07 Simple Mask 10.0 08/10/16 07:45 103 32 88 Simple Mask 10.0 08/10/16 07:33 98.2 81 20 111/56 97 08/10/16 04:01 78 08/10/16 03:27 98.6 82 20 122/60 97 08/10/16 02:50 80 20 95 6.0 08/10/16 02:49 6.0 08/10/16 01:30 95 6.0 08/10/16 00:17 87 08/09/16 23:59 97.5 88 20 132/60 91 08/09/16 22:10 88 08/09/16 22:10 90 18 08/09/16 21:40 86 08/09/16 21:16 Simple Mask 10.0 08/09/16 21:10 96 08/09/16 20:40 95 08/09/16 20:12 90 08/09/16 20:10 100 08/09/16 19:58 97.6 88 18 122/59 96 08/09/16 19:58 90 21 96 10.0 08/09/16 19:56 96 10.0 08/09/16 19:40 95 08/09/16 19:25 91 08/09/16 19:10 81 08/09/16 19:10 91 18 08/09/16 16:19 120 08/09/16 15:48 98.3 117 20 131/72 96 08/09/16 14:17 134 18 94 Simple Mask 10.0 08/09/16 12:08 115 08/09/16 12:00 98.6 114 20 148/72 92 08/09/16 08:30 Nasal Cannula 5.0 08/09/16 08:21 133 08/09/16 08:10 Simple Mask 10.0 08/09/16 07:40 136 18 99 Simple Mask 10.0 08/09/16 07:40 10.0 08/09/16 07:30 98.0 115 20 120/55 98 08/09/16 05:30 130 120/57 08/09/16 04:14 98.1 103 16 179/76 90 08/09/16 04:07 118 08/09/16 03:36 6.0 08/09/16 03:33 156 08/09/16 01:27 109 18 93 Nasal Cannula 6.0 08/09/16 00:19 114 08/09/16 00:03 97.9 115 16 160/72 90 08/08/16 20:28 106 08/08/16 20:08 112 18 91 Nasal Cannula 6.0 08/08/16 20:07 6.0 08/08/16 20:00 Nasal Cannula 5.0 08/08/16 20:00 97.9 98 17 133/73 93 Vital Signs Date Time Temp Pulse Resp B/P Pulse Ox O2 Delivery O2 Flow Rate FiO2 08/11/16 16:06 95 08/11/16 15:54 98.5 20 118/56 92 08/11/16 14:40 48 08/11/16 08:43 Nasal Cannula 6.0 Intake and Output 08/10/16 08/10/16 08/11/16 15:00 23:00 07:00 Intake Total 50 ml 850 ml 50 ml Output Total 2300 ml Balance 50 ml -1450 ml 50 ml Exam Constitutional: alert, frail, obese Psych: nl mood/affect, no complaints Respiratory: congested cough, labored breathing, wheezing Cardiovascular: nl pulses, regular rate and rhythm, No edema, No murmurs/extra sounds, No rub Gastrointestinal: bowel sounds, nl liver, spleen, non-tender, soft, No mass, No rebound or guarding Musculoskeletal: nl extremities to inspection Extremities: normal pulses, No clubbing, No cyanosis, No edema 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: SALES 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 SPECIALIST II-XII intact, nl mental status, nl speech, nl strength Additional Comments Bedside Glucose - 72 Hours Test 08/08/16 21:41 08/09/16 04:58 08/09/16 08:00 08/09/16 12:03 Bedside Glucose 216mg/dL (70-220) 169mg/dL (70-220) 152mg/dL (70-220) 190mg/dL (70-220) Test 08/09/16 16:58 08/09/16 22:10 08/10/16 02:05 08/10/16 05:45 Bedside Glucose 169mg/dL (70-220) 152mg/dL (70-220) 115mg/dL (70-220) 139mg/dL (70-220) Test 08/10/16 07:43 08/10/16 11:26 08/10/16 17:44 08/10/16 23:05 Bedside Glucose 144mg/dL (70-220) 220mg/dL (70-220) 185mg/dL (70-220) 85mg/dL (70-220) Test 08/11/16 05:50 08/11/16 07:36 08/11/16 12:00 08/11/16 17:43 Bedside Glucose 129mg/dL (70-220) 122mg/dL (70-220) 123mg/dL (70-220) 194mg/dL (70-220) Results Result Diagram: 08/10/16 0650 08/10/16 0650 Results 24 hrs Laboratory Tests Test 08/10/16 18:36 08/10/16 23:05 08/11/16 05:50 08/11/16 06:55 Troponin I 0.062 Bedside Glucose 85 129 Prothrombin Time 15.6 H Prothrombin Time Ratio 1.2 INR International Normalized Ratio 1.23 Test 08/11/16 07:36 08/11/16 12:00 08/11/16 17:43 Bedside Glucose 122 123 194 Medications Medications Current Medications Atorvastatin Calcium (Lipitor) 40 mg HS PO Last administered on 08/10/16 21:28 ; Admin Dose 40 MG; Start 08/01/16 at 21:00 Calcitriol (Rocaltrol) 0.25 mcg DAILY PO Last administered on 08/11/16 08:46; Admin Dose 0.25 MCG; Start 08/01/16 at 09:00 Calcium/Vitamin D (Oyster Shell/ Vit-D (500/200)) 1 tab BID PO Last administered on 08/11/16 08:46; Admin Dose 1 TAB; Start 08/01/16 at 09:00 Hydralazine HCl (Apresoline) 50 mg Q8 PO Last administered on 08/11/16 05:53; Admin Dose 50 MG; Start 08/01/16 at 06:00 Metoprolol Tartrate (Lopressor) 25 mg BID PO Last administered on 08/11/16 08: 46; Admin Dose 25 MG; Start 08/01/16 at 09:00 Paroxetine HCl (Paxil) 10 mg DAILY PO Last administered on 08/11/16 08:46; Admin Dose 10 MG; Start 08/01/16 at 09:00 Acetaminophen (Tylenol Tab) 650 mg Q4H PRN PO PAIN AND OR ELEVATED TEMP Last administered on 08/09/16 13:51; Admin Dose 650 MG; Start 08/01/16 at 00:30 Hydralazine HCl (Apresoline) 20 mg Q6H PRN IV ELEVATED BLOOD PRESSURE Last administered on 08/09/16 03:50; Admin Dose 20 MG; Start 08/01/16 at 00:30 Guaifenesin/ Dextromethorphan (Robitussin Dm Liquid Cup) 10 ml Q4H PRN PO COUGH Last administered on 08/10/16 09:37; Admin Dose 10 ML; Start 08/01/16 at 00:30 Heparin Sodium (Porcine) (Heparin (5000 Units/0.5 ml)) 5,000 unit BID SC Last administered on 08/04/16 08:55; Admin Dose 5,000 UNIT; Start 08/01/16 at 09:00 ; Status Future Hold Diagnostic Test (Pha) (Accu-Chek) 1 ea 02 XX Last administered on 08/11/16 05: 50; Admin Dose 1 EA; Start 08/01/16 at 02:00 Epoetin Braden (Epogen (Esrd)) 6,000 units MoWeFr@17 SC Last administered on 22:23; Admin Dose 6,000 UNITS; Start 08/02/16 at 17:00 Miscellaneous Information 1 ea NOTE XX ; Start 08/02/16 at 12:30 Glucose (Glutose) 15 gm Q15M PRN PO DECREASED GLUCOSE; Start 08/02/16 at 12:30 Glucose (Glutose) 22.5 gm Q15M PRN PO DECREASED GLUCOSE; Start 08/02/16 at 12: 30 Dextrose (D50w Syringe) 25 ml Q15M PRN IV DECREASED GLUCOSE; Start 08/02/16 at 12:30 Dextrose (D50w Syringe) 50 ml Q15M PRN IV DECREASED GLUCOSE; Start 08/02/16 at 12:30 Glucagon (Glucagen) 1 mg Q15M PRN IM DECREASED GLUCOSE; Start 08/02/16 at 12:30 Glucose (Glutose) 15 gm Q15M PRN BUCCAL DECREASED GLUCOSE; Start 08/02/16 at 12 :30 Linagliptin (Tradjenta) 5 mg DAILY PO Last administered on 08/11/16 08:47; Admin Dose 5 MG; Start 08/04/16 at 20:00 Salmeterol Xinafoate/ Fluticasone (Advair 250/50 Diskus) 1 inh BID INH Last administered on 08/11/16 08:43; Admin Dose 1 INH; Start 08/08/16 at 11:00 Montelukast Sodium (Singulair) 10 mg HS PO Last administered on 08/10/16 21:28 ; Admin Dose 10 MG; Start 08/08/16 at 21:00 Tiotropium [place] 1 inh 1 inh DAILY INH Last administered on 08/10/16 09:25; Admin Dose 1 INH; Start 08/08/16 at 11:00 Diltiazem HCl (Cardizem-D5W 125 Mg/125 ml Drip) 125 ml @ 5 mls/hr Q24H IV Last administered on 08/09/16 12:34; Admin Dose 5 MLS/HR; Start 08/09/16 at 12:00 Insulin Human NPH 29 unit 29 unit Q8 SC Last administered on 08/11/16 14:59; Admin Dose 29 UNIT; Start 08/09/16 at 14:00 Piperacillin Sod/ Tazobactam Sod (Zosyn 2.25gm/ 50ml (Pmx)) 50 ml @ 100 mls/hr Q8 IVPB Last administered on 08/11/16 15:01; Admin Dose 100 MLS/HR; Start at 14:00 Diltiazem HCl (Cardizem Cd) 180 mg DAILY PO Last administered on 08/11/16 08:45 ; Admin Dose 180 MG; Start 08/11/16 at 09:00 Methylprednisolone Sodium Succinate (Solu-Medrol) 40 mg Q6 IV ; Start 08/11/16 at 18:00 JUDAH NOE MD Aug 11, 2016 17:48
--- NOTE | 2016-08-11 18:30 | CONS ---
Date/Time of Note Date/Time of Note DATE: 08/11/16 TIME: 18:28 Consult Date/Type/Reason Admit Date/Time Jul 31, 2016 at 19:59 Initial Consult Date 08/06/16 Type of Consultation: Cardiac and Vascular Ordering Provider: BRYANT PERALTA Objective Vital Signs Date Time Temp Pulse Resp B/P Pulse Ox O2 Delivery O2 Flow Rate FiO2 08/11/16 17:45 95 98 48 08/11/16 15:54 98.5 20 118/56 08/11/16 08:43 Nasal Cannula 6.0 Intake and Output 08/10/16 08/10/16 08/11/16 15:00 23:00 07:00 Intake Total 50 ml 850 ml 50 ml Output Total 2300 ml Balance 50 ml -1450 ml 50 ml Results/Medications Result Diagram: 08/10/16 0650 08/10/16 0650 Results 24 hrs Laboratory Tests Test 08/10/16 18:36 08/10/16 23:05 08/11/16 05:50 08/11/16 06:55 Troponin I 0.062 Bedside Glucose 85 129 Prothrombin Time 15.6 H Prothrombin Time Ratio 1.2 INR International Normalized Ratio 1.23 Test 08/11/16 07:36 08/11/16 12:00 08/11/16 17:43 Bedside Glucose 122 123 194 Medications Current Medications Atorvastatin Calcium (Lipitor) 40 mg HS PO Last administered on 08/10/16 21:28 ; Admin Dose 40 MG; Start 08/01/16 at 21:00 Calcitriol (Rocaltrol) 0.25 mcg DAILY PO Last administered on 08/11/16 08:46; Admin Dose 0.25 MCG; Start 08/01/16 at 09:00 Calcium/Vitamin D (Oyster Shell/ Vit-D (500/200)) 1 tab BID PO Last administered on 08/11/16 08:46; Admin Dose 1 TAB; Start 08/01/16 at 09:00 Hydralazine HCl (Apresoline) 50 mg Q8 PO Last administered on 08/11/16 05:53; Admin Dose 50 MG; Start 08/01/16 at 06:00 Metoprolol Tartrate (Lopressor) 25 mg BID PO Last administered on 08/11/16 08: 46; Admin Dose 25 MG; Start 08/01/16 at 09:00 Paroxetine HCl (Paxil) 10 mg DAILY PO Last administered on 08/11/16 08:46; Admin Dose 10 MG; Start 08/01/16 at 09:00 Acetaminophen (Tylenol Tab) 650 mg Q4H PRN PO PAIN AND OR ELEVATED TEMP Last administered on 08/09/16 13:51; Admin Dose 650 MG; Start 08/01/16 at 00:30 Hydralazine HCl (Apresoline) 20 mg Q6H PRN IV ELEVATED BLOOD PRESSURE Last administered on 08/09/16 03:50; Admin Dose 20 MG; Start 08/01/16 at 00:30 Guaifenesin/ Dextromethorphan (Robitussin Dm Liquid Cup) 10 ml Q4H PRN PO COUGH Last administered on 08/10/16 09:37; Admin Dose 10 ML; Start 08/01/16 at 00:30 Heparin Sodium (Porcine) (Heparin (5000 Units/0.5 ml)) 5,000 unit BID SC Last administered on 08/04/16 08:55; Admin Dose 5,000 UNIT; Start 08/01/16 at 09:00 ; Status Future Hold Diagnostic Test (Pha) (Accu-Chek) 1 ea 02 XX Last administered on 08/11/16 05: 50; Admin Dose 1 EA; Start 08/01/16 at 02:00 Epoetin Braden (Epogen (Esrd)) 6,000 units MoWeFr@17 SC Last administered on 17:44; Admin Dose 6,000 UNITS; Start 08/02/16 at 17:00 Miscellaneous Information 1 ea NOTE XX ; Start 08/02/16 at 12:30 Glucose (Glutose) 15 gm Q15M PRN PO DECREASED GLUCOSE; Start 08/02/16 at 12:30 Glucose (Glutose) 22.5 gm Q15M PRN PO DECREASED GLUCOSE; Start 08/02/16 at 12: 30 Dextrose (D50w Syringe) 25 ml Q15M PRN IV DECREASED GLUCOSE; Start 08/02/16 at 12:30 Dextrose (D50w Syringe) 50 ml Q15M PRN IV DECREASED GLUCOSE; Start 08/02/16 at 12:30 Glucagon (Glucagen) 1 mg Q15M PRN IM DECREASED GLUCOSE; Start 08/02/16 at 12:30 Glucose (Glutose) 15 gm Q15M PRN BUCCAL DECREASED GLUCOSE; Start 08/02/16 at 12 :30 Linagliptin (Tradjenta) 5 mg DAILY PO Last administered on 08/11/16 08:47; Admin Dose 5 MG; Start 08/04/16 at 20:00 Salmeterol Xinafoate/ Fluticasone (Advair 250/50 Diskus) 1 inh BID INH Last administered on 08/11/16 08:43; Admin Dose 1 INH; Start 08/08/16 at 11:00 Montelukast Sodium (Singulair) 10 mg HS PO Last administered on 08/10/16 21:28 ; Admin Dose 10 MG; Start 08/08/16 at 21:00 Tiotropium [place] 1 inh 1 inh DAILY INH Last administered on 08/10/16 09:25; Admin Dose 1 INH; Start 08/08/16 at 11:00 Diltiazem HCl (Cardizem-D5W 125 Mg/125 ml Drip) 125 ml @ 5 mls/hr Q24H IV Last administered on 08/09/16 12:34; Admin Dose 5 MLS/HR; Start 08/09/16 at 12:00 Insulin Human NPH 29 unit 29 unit Q8 SC Last administered on 08/11/16 14:59; Admin Dose 29 UNIT; Start 08/09/16 at 14:00 Piperacillin Sod/ Tazobactam Sod (Zosyn 2.25gm/ 50ml (Pmx)) 50 ml @ 100 mls/hr Q8 IVPB Last administered on 08/11/16 15:01; Admin Dose 100 MLS/HR; Start at 14:00 Diltiazem HCl (Cardizem Cd) 180 mg DAILY PO Last administered on 08/11/16 08:45 ; Admin Dose 180 MG; Start 08/11/16 at 09:00 Methylprednisolone Sodium Succinate (Solu-Medrol) 40 mg Q6 IV Last administered on 08/11/16 17:44; Admin Dose 40 MG; Start 08/11/16 at 18:00 Assessment/Plan Chief Complaint/Hosp Course Patient is 85 year old F with PMH of HTN, HLD, CKD now presentezd with SOB and ESRD was started on HD. She already has been planning for Stage IV CKD and had fistula done already. Pt does have some SOB. significant Leg edema. Likely realted to CKD and Diastolic HF. LVEF is nl. Problems: Additional Assessment/Plan PT stable Afib on coumadin with dosing by PMD She is still SOB. But getting slowly better PAD : Stable will .fu Pt BP is contorleed. on rate contorl meds, cardizem and metoprolol will f/u SIERRA GARCIA MD Aug 11, 2016 18:30
--- NOTE | 2016-08-11 19:57 | CONS ---
Date/Time of Note Date/Time of Note DATE: 08/11/16 TIME: 19:55 Assessment/Plan Assessment/Plan Chief Complaint/Hosp Course IMPRESSION: 1. End-stage renal disease stage V. 2. Fluid overload.better 3. Pulmonary edema.better 4. Anemia of chronic kidney disease. 5. History of diabetes mellitus. 6. 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 7. AV fistula on the left upper extremity. 8 pneumonia/bronchites plan continue hd DAILY fluis res antibiotic will need bronchoscopy Problems: Consultation Date/Type/Reason Admit Date/Time Jul 31, 2016 at 19:59 Initial Consult Date 08/01/16 Type of Consultation: renal Referring Provider: BRYANT PERALTA 24 HR Interval Summary Subjective hx not possible: other (still sob has pneumonia will need bronchoscopy) Exam/Review of Systems Vital Signs Vitals Vital Signs Date Time Temp Pulse Resp B/P Pulse Ox O2 Delivery O2 Flow Rate FiO2 08/11/16 17:45 95 98 48 08/11/16 15:54 98.5 20 118/56 08/11/16 08:43 Nasal Cannula 6.0 Intake and Output 08/10/16 08/10/16 08/11/16 15:00 23:00 07:00 Intake Total 50 ml 850 ml 50 ml Output Total 2300 ml Balance 50 ml -1450 ml 50 ml Exam Respiratory: congested cough, crackles/rales, diminished breath sounds Cardiovascular: regular rate and rhythm Gastrointestinal: bowel sounds (+), soft Musculoskeletal: nl extremities to inspection Results Result Diagram: 08/10/16 0650 08/10/16 0650 Results 24 hrs Laboratory Tests Test 08/10/16 23:05 08/11/16 05:50 08/11/16 06:55 08/11/16 07:36 Bedside Glucose 85 129 122 Prothrombin Time 15.6 H Prothrombin Time Ratio 1.2 INR International Normalized Ratio 1.23 Test 08/11/16 12:00 08/11/16 17:43 Bedside Glucose 123 194 Medications Medications Current Medications Atorvastatin Calcium (Lipitor) 40 mg HS PO Last administered on 08/10/16 21:28 ; Admin Dose 40 MG; Start 08/01/16 at 21:00 Calcitriol (Rocaltrol) 0.25 mcg DAILY PO Last administered on 08/11/16 08:46; Admin Dose 0.25 MCG; Start 08/01/16 at 09:00 Calcium/Vitamin D (Oyster Shell/ Vit-D (500/200)) 1 tab BID PO Last administered on 08/11/16 08:46; Admin Dose 1 TAB; Start 08/01/16 at 09:00 Hydralazine HCl (Apresoline) 50 mg Q8 PO Last administered on 08/11/16 05:53; Admin Dose 50 MG; Start 08/01/16 at 06:00 Metoprolol Tartrate (Lopressor) 25 mg BID PO Last administered on 08/11/16 08: 46; Admin Dose 25 MG; Start 08/01/16 at 09:00 Paroxetine HCl (Paxil) 10 mg DAILY PO Last administered on 08/11/16 08:46; Admin Dose 10 MG; Start 08/01/16 at 09:00 Acetaminophen (Tylenol Tab) 650 mg Q4H PRN PO PAIN AND OR ELEVATED TEMP Last administered on 08/09/16 13:51; Admin Dose 650 MG; Start 08/01/16 at 00:30 Hydralazine HCl (Apresoline) 20 mg Q6H PRN IV ELEVATED BLOOD PRESSURE Last administered on 08/09/16 03:50; Admin Dose 20 MG; Start 08/01/16 at 00:30 Guaifenesin/ Dextromethorphan (Robitussin Dm Liquid Cup) 10 ml Q4H PRN PO COUGH Last administered on 08/10/16 09:37; Admin Dose 10 ML; Start 08/01/16 at 00:30 Heparin Sodium (Porcine) (Heparin (5000 Units/0.5 ml)) 5,000 unit BID SC Last administered on 08/04/16 08:55; Admin Dose 5,000 UNIT; Start 08/01/16 at 09:00 ; Status Future Hold Diagnostic Test (Pha) (Accu-Chek) 1 ea 02 XX Last administered on 08/11/16 05: 50; Admin Dose 1 EA; Start 08/01/16 at 02:00 Epoetin Braden (Epogen (Esrd)) 6,000 units MoWeFr@17 SC Last administered on 17:44; Admin Dose 6,000 UNITS; Start 08/02/16 at 17:00 Miscellaneous Information 1 ea NOTE XX ; Start 08/02/16 at 12:30 Glucose (Glutose) 15 gm Q15M PRN PO DECREASED GLUCOSE; Start 08/02/16 at 12:30 Glucose (Glutose) 22.5 gm Q15M PRN PO DECREASED GLUCOSE; Start 08/02/16 at 12: 30 Dextrose (D50w Syringe) 25 ml Q15M PRN IV DECREASED GLUCOSE; Start 08/02/16 at 12:30 Dextrose (D50w Syringe) 50 ml Q15M PRN IV DECREASED GLUCOSE; Start 08/02/16 at 12:30 Glucagon (Glucagen) 1 mg Q15M PRN IM DECREASED GLUCOSE; Start 08/02/16 at 12:30 Glucose (Glutose) 15 gm Q15M PRN BUCCAL DECREASED GLUCOSE; Start 08/02/16 at 12 :30 Linagliptin (Tradjenta) 5 mg DAILY PO Last administered on 08/11/16 08:47; Admin Dose 5 MG; Start 08/04/16 at 20:00 Salmeterol Xinafoate/ Fluticasone (Advair 250/50 Diskus) 1 inh BID INH Last administered on 08/11/16 08:43; Admin Dose 1 INH; Start 08/08/16 at 11:00 Montelukast Sodium (Singulair) 10 mg HS PO Last administered on 08/10/16 21:28 ; Admin Dose 10 MG; Start 08/08/16 at 21:00 Tiotropium [place] 1 inh 1 inh DAILY INH Last administered on 08/10/16 09:25; Admin Dose 1 INH; Start 08/08/16 at 11:00 Diltiazem HCl (Cardizem-D5W 125 Mg/125 ml Drip) 125 ml @ 5 mls/hr Q24H IV Last administered on 08/09/16 12:34; Admin Dose 5 MLS/HR; Start 08/09/16 at 12:00 Insulin Human NPH 29 unit 29 unit Q8 SC Last administered on 08/11/16 14:59; Admin Dose 29 UNIT; Start 08/09/16 at 14:00 Piperacillin Sod/ Tazobactam Sod (Zosyn 2.25gm/ 50ml (Pmx)) 50 ml @ 100 mls/hr Q8 IVPB Last administered on 08/11/16 15:01; Admin Dose 100 MLS/HR; Start at 14:00 Diltiazem HCl (Cardizem Cd) 180 mg DAILY PO Last administered on 08/11/16 08:45 ; Admin Dose 180 MG; Start 08/11/16 at 09:00 Methylprednisolone Sodium Succinate (Solu-Medrol) 40 mg Q6 IV Last administered on 08/11/16 17:44; Admin Dose 40 MG; Start 08/11/16 at 18:00 DAT OLSON MD Aug 11, 2016 19:57
[2016-08-11] MEDS: ATORVASTATIN 40 MG TAB PO SCH (21:21)
[2016-08-11] MEDS: MONTELUKAST 10 MG TAB PO SCH (21:21)
[2016-08-11] MEDS: ACETAMINOPHEN 325 MG TAB PO PRN (21:21)
[2016-08-12] VITALS (21 sets, daily range): BP systolic 109–131; BP diastolic 45–63; PULSE 75–102; RESP 18–27
[2016-08-12] MEDS: METHYLPREDNISOLONE 40 MG INJ IV SCH ×4 (00:36→17:33)
[2016-08-12] MEDS: ACCU-CHEK XX SCH (02:00)
[2016-08-12] MEDS: ALBUTEROL/IPRATROPIUM (NEB) 3 ML AMP HHN SCH ×4 (04:44→20:10)
[2016-08-12] MEDS: PIPER-TAZO 2.25 GM (PMX) 50 ML IVPB SCH ×3 (05:03→22:27)
[2016-08-12] MEDS: FUROSEMIDE 40 MG INJ IV SCH ×2 (05:04→17:33)
[2016-08-12] MEDS: NPH, HUMAN INSULIN ISOPHANE 3ML VIAL SC SCH ×3 (06:00→17:34)
[2016-08-12] MEDS: DEXTROSE 50% 50 ML SYRINGE IV PRN ×2 (06:59→20:39)
[2016-08-12 07:23] LABS: ADD SCAN DIFF NO
[2016-08-12 07:33] LABS: ABNORMAL IP MESSAGE 1; HEMATOCRIT 34.7 % (37.0-47.0); HEMOGLOBIN 10.9 g/dl (12.0-16.0); MEAN CORPUSCULAR HEMOGLOBIN 29.1 pg (29.0-33.0); MEAN CORPUSCULAR HGB CONC 31.4 g/dl (32.0-37.0); MEAN CORPUSCULAR VOLUME 92.5 fl (82.0-101.0); MEAN PLATELET VOLUME 11.2 fl (7.4-10.4); PLATELET COUNT 190 10^3/UL (140-415); RED BLOOD COUNT 3.75 10^6/ul (4.20-5.40); WHITE BLOOD COUNT 22.2 10^3/ul (4.8-10.8)
[2016-08-12 07:49] LABS: POTASSIUM 4.6 mmol/L (3.5-5.1)
[2016-08-12 07:51] LABS: CREATININE 4.57 mg/dl (0.44-1.00)
[2016-08-12] MEDS: INSULIN ASPART [NOVOLOG] 3 ML PEN SC SCH ×4 (07:55→21:00)
[2016-08-12 08:23] LABS: INR 1.74; PROTIME 20.5 Sec (12.2-14.2); PT RATIO 1.6
[2016-08-12] MEDS: SALMETEROL/FLUTICASONE 250/50 INHA INH SCH ×2 (08:24→21:00)
[2016-08-12] MEDS: TIOTROPIUM 18 MCG CAPSULE INHA DEV INH SCH (08:25)
[2016-08-12] MEDS: METOPROLOL 25 MG TAB PO SCH ×2 (08:26→21:00)
[2016-08-12] MEDS: CALCIUM/VITAMIN D (500/200) TAB PO SCH ×2 (08:26→21:00)
[2016-08-12] MEDS: DILTIAZEM (CD) 180 MG CAP PO SCH (08:26)
[2016-08-12] MEDS: PAROXETINE 10 MG TAB PO SCH (08:27)
[2016-08-12] MEDS: LINAGLIPTIN 5 MG TABLET PO SCH (08:27)
[2016-08-12] MEDS: CALCITRIOL 0.25 MCG CAP PO SCH (08:27)
[2016-08-12 10:15] LABS: LYMPHOCYTES # 0.7 10^3/ul (0.8-2.9); MONOCYTE # 0.2 10^3/ul (0.3-0.9); NEUTROPHIL # 20.6 10^3/ul (1.6-7.5)
--- NOTE | 2016-08-12 10:56 | CONS ---
Date/Time of Note Date/Time of Note DATE: 08/12/16 TIME: 10:54 Assessment/Plan Assessment/Plan Additional Assessment/Plan Assessment recommendations; 1. Patient admitted for acute renal failure as well as bilateral bronchopneumonia. 2. Cistern shortness of breath. Continue current treatment. Continue Solu-Medrol and antibiotics. Obtain a follow-up chest x-ray. Continue BiPAP as needed. Consultation Date/Type/Reason Admit Date/Time Jul 31, 2016 at 19:59 Initial Consult Date 08/06/16 Type of Consultation: Pulmonary Referring Provider: BRYANT PERALTA 24 HR Interval Summary Free Text/Dictation Patient still complains of shortness of breath. Denies any coughing. Chest pain. Angina. Complains of mild wheezing. Exam; elderly lady, awake currently in no distress. Exam/Review of Systems Vital Signs Vitals Vital Signs Date Time Temp Pulse Resp B/P Pulse Ox O2 Delivery O2 Flow Rate FiO2 08/12/16 08:15 97 21 97 40 08/12/16 07:51 Nasal Cannula 6.0 08/12/16 07:16 98.0 124/60 Intake and Output 08/11/16 08/11/16 08/12/16 15:00 23:00 07:00 Intake Total 500 ml 400 ml 120 ml Output Total 2000 ml 0 ml Balance -1500 ml 400 ml 120 ml Exam HEENT exam; supple neck, no JVD. No lymphadenopathy. Midline trachea. With her regular. She has multiple carious teeth. Pupils are small bilaterally. Chest exam; numerous vessels bilaterally. S1-S2 audible, no murmurs. Regular rhythm. Abdomen examination; soft, nontender. Pulses audible. Extremity exam; no peripheral edema. PRODUCTION HEL[employer] examination; no focal deficit. Results Result Diagram: 08/12/16 0646 08/12/16 0616 Results 24 hrs Laboratory Tests Test 08/11/16 12:00 08/11/16 17:43 08/11/16 20:25 08/11/16 22:43 Bedside Glucose 123 194 109 Troponin I 0.056 Test 08/12/16 06:09 08/12/16 06:16 08/12/16 06:46 08/12/16 06:53 Bedside Glucose 63 L 63 L Sodium Level 140 Potassium Level 4.6 Chloride Level 100 Carbon Dioxide Level 24 Anion Gap 21 H Blood Urea Nitrogen 78 H Creatinine 4.57 H Glucose Level 69 #L Calcium Level 9.0 White Blood Count 22.2 #H Red Blood Count 3.75 L Hemoglobin 10.9 L Hematocrit 34.7 L Mean Corpuscular Volume 92.5 Mean Corpuscular Hemoglobin 29.1 Mean Corpuscular Hemoglobin Concent 31.4 L Red Cell Distribution Width 15.0 H Platelet Count 190 # Mean Platelet Volume 11.2 H Neutrophils % 93.0 H Band Neutrophils % 3.0 Lymphocytes % 3.0 L Monocytes % 1.0 Nucleated Red Blood Cells % 2.0 H Neutrophils # 20.6 H Lymphocytes # 0.7 L Monocytes # 0.2 L Prothrombin Time 20.5 #H Prothrombin Time Ratio 1.6 INR International Normalized Ratio 1.74 Test 08/12/16 07:19 Bedside Glucose 140 Medications Medications Current Medications Atorvastatin Calcium (Lipitor) 40 mg HS PO Last administered on 08/11/16 21:21 ; Admin Dose 40 MG; Start 08/01/16 at 21:00 Calcitriol (Rocaltrol) 0.25 mcg DAILY PO Last administered on 08/12/16 08:27; Admin Dose 0.25 MCG; Start 08/01/16 at 09:00 Calcium/Vitamin D (Oyster Shell/ Vit-D (500/200)) 1 tab BID PO Last administered on 08/12/16 08:26; Admin Dose 1 TAB; Start 08/01/16 at 09:00 Hydralazine HCl (Apresoline) 50 mg Q8 PO Last administered on 08/12/16 05:04; Admin Dose 50 MG; Start 08/01/16 at 06:00 Metoprolol Tartrate (Lopressor) 25 mg BID PO Last administered on 08/12/16 08: ; Admin Dose 25 MG; Start 08/01/16 at 09:00 Paroxetine HCl (Paxil) 10 mg DAILY PO Last administered on 08/12/16 08:; Admin Dose 10 MG; Start 08/01/16 at 09:00 Acetaminophen (Tylenol Tab) 650 mg Q4H PRN PO PAIN AND OR ELEVATED TEMP Last administered on 08/11/16 21:21; Admin Dose 650 MG; Start 08/01/16 at 00:30 Hydralazine HCl (Apresoline) 20 mg Q6H PRN IV ELEVATED BLOOD PRESSURE Last administered on 08/09/16 03:50; Admin Dose 20 MG; Start 08/01/16 at 00:30 Guaifenesin/ Dextromethorphan (Robitussin Dm Liquid Cup) 10 ml Q4H PRN PO COUGH Last administered on 08/10/16 09:37; Admin Dose 10 ML; Start 08/01/16 at 00:30 Heparin Sodium (Porcine) (Heparin (5000 Units/0.5 ml)) 5,000 unit BID SC Last administered on 08/04/16 08:55; Admin Dose 5,000 UNIT; Start 08/01/16 at 09:00 ; Status Future Hold Diagnostic Test (Pha) (Accu-Chek) 1 ea 02 XX Last administered on 08/11/16 05: 50; Admin Dose 1 EA; Start 08/01/16 at 02:00 Epoetin Braden (Epogen (Esrd)) 6,000 units MoWeFr@17 SC Last administered on 17:44; Admin Dose 6,000 UNITS; Start 08/02/16 at 17:00 Miscellaneous Information 1 ea NOTE XX ; Start 08/02/16 at 12:30 Glucose (Glutose) 15 gm Q15M PRN PO DECREASED GLUCOSE Last administered on 06:27; Admin Dose 15 GM; Start 08/02/16 at 12:30 Glucose (Glutose) 22.5 gm Q15M PRN PO DECREASED GLUCOSE; Start 08/02/16 at 12: 30 Dextrose (D50w Syringe) 25 ml Q15M PRN IV DECREASED GLUCOSE Last administered on 08/12/16 06:59; Admin Dose 25 ML; Start 08/02/16 at 12:30 Dextrose (D50w Syringe) 50 ml Q15M PRN IV DECREASED GLUCOSE; Start 08/02/16 at 12:30 Glucagon (Glucagen) 1 mg Q15M PRN IM DECREASED GLUCOSE; Start 08/02/16 at 12:30 Glucose (Glutose) 15 gm Q15M PRN BUCCAL DECREASED GLUCOSE; Start 08/02/16 at 12 :30 Linagliptin (Tradjenta) 5 mg DAILY PO Last administered on 08/12/16 08:27; Admin Dose 5 MG; Start 08/04/16 at 20:00 Salmeterol Xinafoate/ Fluticasone (Advair 250/50 Diskus) 1 inh BID INH Last administered on 08/12/16 08:24; Admin Dose 1 INH; Start 08/08/16 at 11:00 Montelukast Sodium (Singulair) 10 mg HS PO Last administered on 08/11/16 21:21 ; Admin Dose 10 MG; Start 08/08/16 at 21:00 Tiotropium [place] 1 inh 1 inh DAILY INH Last administered on 08/12/16 08:25; Admin Dose 1 INH; Start 08/08/16 at 11:00 Diltiazem HCl 125 ml @ 5 mls/hr Q24H IV Last administered on 08/09/16 12:34; Admin Dose 5 MLS/HR; Start 08/09/16 at 12:00 Piperacillin Sod/ Tazobactam Sod (Zosyn 2.25gm/ 50ml (Pmx)) 50 ml @ 100 mls/hr Q8 IVPB Last administered on 08/12/16 05:03; Admin Dose 100 MLS/HR; Start at 14:00 Diltiazem HCl (Cardizem Cd) 180 mg DAILY PO Last administered on 08/12/16 08:26 ; Admin Dose 180 MG; Start 08/11/16 at 09:00 Methylprednisolone Sodium Succinate (Solu-Medrol) 40 mg Q6 IV Last administered on 08/12/16 05:04; Admin Dose 40 MG; Start 08/11/16 at 18:00 Insulin Human NPH (Humulin N) 40 unit Q6 SC ; Start 08/12/16 at 12:00 KOFI HUERTA Aug 12, 2016 10:56
[2016-08-12] MEDS: DILTIAZEM-D5W 125MG/125ML DRIP 125 ML IV SCH (12:00)
--- NOTE | 2016-08-12 14:48 | CONS ---
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 However, solu-medrol dose increased. Will respond by increasing NPH from 29 to 40 mg and from q8 to q6. Reeval tomorrow. If hypos recur, will lower insulin doses again. Qualifiers: Diabetes mellitus halfway insulin use: with halfway use Chronic kidney disease stage: stage 5, not on chronic dialysis Qualified Code: E11.22 - Type 2 diabetes mellitus with stage 5 chronic kidney disease not on chronic dialysis, with long-term current use of insulin Consultation Date/Type/Reason Admit Date/Time Jul 31, 2016 at 19:59 Initial Consult Date 08/06/16 Type of Consultation: Endocrinology Reason for Consultation T2DM OOC Referring Provider: BRYANT PERALTA 24 HR Interval Summary Constitutional: improved, requiring O2 Detailed Summary Respiratory: cough, shortness of breath (improved from yesterday) Cardiovascular: orthopenea Gastrointestinal: no complaints Genitourinary: no complaints Musculoskeletal: no complaints Neurologic: no complaints Exam/Review of Systems Vital Signs Vitals VS - Last 72 Hours, by Label Date Time Temp Pulse Resp B/P Pulse Ox O2 Delivery O2 Flow Rate FiO2 08/12/16 12:06 90 08/12/16 11:22 97.9 83 22 120/58 96 08/12/16 11:21 5.0 08/12/16 08:15 97 21 97 40 08/12/16 08:12 75 08/12/16 07:51 Nasal Cannula 6.0 08/12/16 07:25 83 99 40 08/12/16 07:16 98.0 88 21 124/60 99 08/12/16 06:03 5.0 08/12/16 05:17 84 98 40 08/12/16 04:13 82 08/12/16 04:02 97.2 84 20 124/61 99 08/12/16 03:00 82 98 43 08/12/16 02:01 100 97 46 08/12/16 00:23 97.4 83 18 109/57 98 08/12/16 00:17 91 08/11/16 23:00 5.0 08/11/16 20:45 99 96 46 08/11/16 20:38 99 25 96 Aerosol Mask 6.0 08/11/16 20:08 101 08/11/16 20:01 98.6 114 20 119/66 97 08/11/16 17:45 95 98 48 08/11/16 16:06 95 08/11/16 15:54 98.5 99 20 118/56 92 08/11/16 14:40 102 97 48 08/11/16 14:10 129 08/11/16 13:40 105 08/11/16 13:35 85 96 48 08/11/16 13:10 99 08/11/16 12:40 104 08/11/16 12:10 105 08/11/16 12:04 88 08/11/16 11:54 97.6 88 20 111/64 91 08/11/16 11:53 97.5 88 20 111/64 91 08/11/16 11:40 89 08/11/16 11:40 105 22 08/11/16 08:43 Nasal Cannula 6.0 08/11/16 08:02 105 08/11/16 07:50 101 20 97 Nasal Cannula 6.0 08/11/16 07:26 97.5 94 20 126/61 90 08/11/16 05:07 95 96 48 08/11/16 04:11 92 08/11/16 04:02 98.6 96 18 130/65 92 08/11/16 00:53 6.0 08/11/16 00:06 71 08/11/16 00:03 97.6 76 17 97/50 94 08/10/16 23:01 6.0 08/10/16 21:25 98 111/55 95 Nasal Cannula 6.0 08/10/16 20:50 100 18 08/10/16 20:50 80 08/10/16 20:35 Nasal Cannula 6.0 08/10/16 20:20 90 08/10/16 20:19 81 22 95 Nasal Cannula 6.0 08/10/16 20:06 103 08/10/16 20:00 98.8 63 18 109/52 90 08/10/16 19:50 91 08/10/16 19:35 90 08/10/16 19:20 83 08/10/16 19:20 83 18 08/10/16 16:12 87 08/10/16 15:55 98.6 79 20 120/57 91 08/10/16 13:44 87 28 94 Nasal Cannula 6.0 08/10/16 12:34 79 08/10/16 12:00 98.0 75 20 123/63 96 08/10/16 08:09 74 08/10/16 08:07 Simple Mask 10.0 08/10/16 07:45 103 32 88 Simple Mask 10.0 08/10/16 07:33 98.2 81 20 111/56 97 08/10/16 04:01 78 08/10/16 03:27 98.6 82 20 122/60 97 08/10/16 02:50 80 20 95 6.0 08/10/16 02:49 6.0 08/10/16 01:30 95 6.0 08/10/16 00:17 87 08/09/16 23:59 97.5 88 20 132/60 91 08/09/16 22:10 88 08/09/16 22:10 90 18 08/09/16 21:40 86 08/09/16 21:16 Simple Mask 10.0 08/09/16 21:10 96 08/09/16 20:40 95 08/09/16 20:12 90 08/09/16 20:10 100 08/09/16 19:58 97.6 88 18 122/59 96 08/09/16 19:58 90 21 96 10.0 08/09/16 19:56 96 10.0 08/09/16 19:40 95 08/09/16 19:25 91 08/09/16 19:10 81 08/09/16 19:10 91 18 08/09/16 16:19 120 08/09/16 15:48 98.3 117 20 131/72 96 Vital Signs Date Time Temp Pulse Resp B/P Pulse Ox O2 Delivery O2 Flow Rate FiO2 08/12/16 12:06 90 08/12/16 11:22 97.9 22 120/58 96 08/12/16 11:21 5.0 08/12/16 08:15 40 08/12/16 07:51 Nasal Cannula Intake and Output 08/11/16 08/11/16 08/12/16 15:00 23:00 07:00 Intake Total 500 ml 400 ml 120 ml Output Total 2000 ml 0 ml Balance -1500 ml 400 ml 120 ml Exam Constitutional: alert, frail, oriented Psych: nl mood/affect, no complaints Respiratory: wheezing (end-inspiratory ) Cardiovascular: regular rate and rhythm, No edema, No murmurs/extra sounds, No rub Gastrointestinal: bowel sounds, nl liver, spleen, non-tender, soft, No mass, No rebound or guarding Musculoskeletal: nl extremities to inspection Extremities: normal pulses, No cyanosis 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: 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, nl mental status, nl speech, nl strength Additional Comments Bedside Glucose - 72 Hours Test 08/09/16 16:58 08/09/16 22:10 08/10/16 02:05 08/10/16 05:45 Bedside Glucose 169mg/dL (70-220) 152mg/dL (70-220) 115mg/dL (70-220) 139mg/dL (70-220) Test 08/10/16 07:43 08/10/16 11:26 08/10/16 17:44 08/10/16 23:05 Bedside Glucose 144mg/dL (70-220) 220mg/dL (70-220) 185mg/dL (70-220) 85mg/dL (70-220) Test 08/11/16 05:50 08/11/16 07:36 08/11/16 12:00 08/11/16 17:43 Bedside Glucose 129mg/dL (70-220) 122mg/dL (70-220) 123mg/dL (70-220) 194mg/dL (70-220) Test 08/11/16 22:43 08/12/16 06:09 08/12/16 06:53 08/12/16 07:19 Bedside Glucose 109mg/dL (70-220) 63mg/dL (70-220) L 63mg/dL (70-220) L 140mg/dL (70-220) Test 08/12/16 11:26 Bedside Glucose 107mg/dL (70-220) Results Result Diagram: 08/12/16 0646 08/12/16 0616 Results 24 hrs Laboratory Tests Test 08/11/16 17:43 08/11/16 20:25 08/11/16 22:43 08/12/16 06:09 Bedside Glucose 194 109 63 L Troponin I 0.056 Test 08/12/16 06:16 08/12/16 06:46 08/12/16 06:53 08/12/16 07:19 Sodium Level 140 Potassium Level 4.6 Chloride Level 100 Carbon Dioxide Level 24 Anion Gap 21 H Blood Urea Nitrogen 78 H Creatinine 4.57 H Glucose Level 69 #L Calcium Level 9.0 White Blood Count 22.2 #H Red Blood Count 3.75 L Hemoglobin 10.9 L Hematocrit 34.7 L Mean Corpuscular Volume 92.5 Mean Corpuscular Hemoglobin 29.1 Mean Corpuscular Hemoglobin Concent 31.4 L Red Cell Distribution Width 15.0 H Platelet Count 190 # Mean Platelet Volume 11.2 H Neutrophils % 93.0 H Band Neutrophils % 3.0 Lymphocytes % 3.0 L Monocytes % 1.0 Nucleated Red Blood Cells % 2.0 H Neutrophils # 20.6 H Lymphocytes # 0.7 L Monocytes # 0.2 L Prothrombin Time 20.5 #H Prothrombin Time Ratio 1.6 INR International Normalized Ratio 1.74 Bedside Glucose 63 L 140 Test 08/12/16 11:26 Bedside Glucose 107 Medications Medications Current Medications Atorvastatin Calcium (Lipitor) 40 mg HS PO Last administered on 08/11/16 21:21 ; Admin Dose 40 MG; Start 08/01/16 at 21:00 Calcitriol (Rocaltrol) 0.25 mcg DAILY PO Last administered on 08/12/16 08:27; Admin Dose 0.25 MCG; Start 08/01/16 at 09:00 Calcium/Vitamin D (Oyster Shell/ Vit-D (500/200)) 1 tab BID PO Last administered on 08/12/16 08:26; Admin Dose 1 TAB; Start 08/01/16 at 09:00 Hydralazine HCl (Apresoline) 50 mg Q8 PO Last administered on 08/12/16 05:04; Admin Dose 50 MG; Start 08/01/16 at 06:00 Metoprolol Tartrate (Lopressor) 25 mg BID PO Last administered on 08/12/16 08: 26; Admin Dose 25 MG; Start 08/01/16 at 09:00 Paroxetine HCl (Paxil) 10 mg DAILY PO Last administered on 08/12/16 08:27; Admin Dose 10 MG; Start 08/01/16 at 09:00 Acetaminophen (Tylenol Tab) 650 mg Q4H PRN PO PAIN AND OR ELEVATED TEMP Last administered on 08/11/16 21:21; Admin Dose 650 MG; Start 08/01/16 at 00:30 Hydralazine HCl (Apresoline) 20 mg Q6H PRN IV ELEVATED BLOOD PRESSURE Last administered on 08/09/16 03:50; Admin Dose 20 MG; Start 08/01/16 at 00:30 Guaifenesin/ Dextromethorphan (Robitussin Dm Liquid Cup) 10 ml Q4H PRN PO COUGH Last administered on 08/10/16 09:37; Admin Dose 10 ML; Start 08/01/16 at 00:30 Heparin Sodium (Porcine) (Heparin (5000 Units/0.5 ml)) 5,000 unit BID SC Last administered on 08/04/16 08:55; Admin Dose 5,000 UNIT; Start 08/01/16 at 09:00 ; Status Future Hold Diagnostic Test (Pha) (Accu-Chek) 1 ea 02 XX Last administered on 08/11/16 05: 50; Admin Dose 1 EA; Start 08/01/16 at 02:00 Epoetin Braden (Epogen (Esrd)) 6,000 units MoWeFr@17 SC Last administered on 17:44; Admin Dose 6,000 UNITS; Start 08/02/16 at 17:00 Miscellaneous Information 1 ea NOTE XX ; Start 08/02/16 at 12:30 Glucose (Glutose) 15 gm Q15M PRN PO DECREASED GLUCOSE Last administered on 06:27; Admin Dose 15 GM; Start 08/02/16 at 12:30 Glucose (Glutose) 22.5 gm Q15M PRN PO DECREASED GLUCOSE; Start 08/02/16 at 12: 30 Dextrose (D50w Syringe) 25 ml Q15M PRN IV DECREASED GLUCOSE Last administered on 08/12/16 06:59; Admin Dose 25 ML; Start 08/02/16 at 12:30 Dextrose (D50w Syringe) 50 ml Q15M PRN IV DECREASED GLUCOSE; Start 08/02/16 at 12:30 Glucagon (Glucagen) 1 mg Q15M PRN IM DECREASED GLUCOSE; Start 08/02/16 at 12:30 Glucose (Glutose) 15 gm Q15M PRN BUCCAL DECREASED GLUCOSE; Start 08/02/16 at 12 :30 Linagliptin (Tradjenta) 5 mg DAILY PO Last administered on 08/12/16 08:27; Admin Dose 5 MG; Start 08/04/16 at 20:00 Salmeterol Xinafoate/ Fluticasone (Advair 250/50 Diskus) 1 inh BID INH Last administered on 08/12/16 08:24; Admin Dose 1 INH; Start 08/08/16 at 11:00 Montelukast Sodium (Singulair) 10 mg HS PO Last administered on 08/11/16 21:21 ; Admin Dose 10 MG; Start 08/08/16 at 21:00 Tiotropium [place] 1 inh 1 inh DAILY INH Last administered on 08/12/16 08:25; Admin Dose 1 INH; Start 08/08/16 at 11:00 Diltiazem HCl 125 ml @ 5 mls/hr Q24H IV Last administered on 08/09/16 12:34; Admin Dose 5 MLS/HR; Start 08/09/16 at 12:00 Piperacillin Sod/ Tazobactam Sod (Zosyn 2.25gm/ 50ml (Pmx)) 50 ml @ 100 mls/hr Q8 IVPB Last administered on 08/12/16 05:03; Admin Dose 100 MLS/HR; Start at 14:00 Diltiazem HCl (Cardizem Cd) 180 mg DAILY PO Last administered on 08/12/16 08:26 ; Admin Dose 180 MG; Start 08/11/16 at 09:00 Methylprednisolone Sodium Succinate (Solu-Medrol) 40 mg Q6 IV Last administered on 08/12/16 12:56; Admin Dose 40 MG; Start 08/11/16 at 18:00 Insulin Human NPH (Humulin N) 40 unit Q6 SC Last administered on 08/12/16 12:59 ; Admin Dose 40 UNIT; Start 08/12/16 at 12:00 Miscellaneous Information (*Rx Drug Level Order Reminder*) VANCO RANDOM LEVEL... ONCE ONCE XX ; Start 08/13/16 at 05:00; Stop 08/13/16 at 05:01 JUDAH NOE MD Aug 12, 2016 14:45
--- NOTE | 2016-08-12 15:14 | PN ---
Date/Time of Note Date/Time of Note DATE: 08/12/16 TIME: 15:06 Assessment/Plan VTE Prophylaxis VTE Prophylaxis Intervention: other Lines/Catheters IV Catheter Type (from [facility]): [facility] Urinary Cath still in place: No Assessment/Plan Assessment/Plan -Acute respiratory insufficiency secondary to pneumonia and COPD exacerbation. - Right-sided pneumonia per CT scan, continue cefepime. - A-fib with RVR, continue Cardizem, patient is followed by Dr. Stuart in cardiology. - COPD exacerbation, continue breathing treatment. Dr. Natarajan is following in pulmonology consultation - End-stage renal disease stage V. Dr. Leon is following in nephrology consultation. Continue to hemodialysis via right femoral hemodialysis catheter. - Pulmonary edema. Continue diuresis. - Anemia of chronic kidney disease. Continue Epogen. - Diabetes mellitus type [address] Garcia is following an endocrinology consultation. Continue NPH. - Hypertension, continue Norvasc. -Left upper extremity AV fistula, non-matured -Status post right hemodialysis non-tunneled catheter placement by Dr. Manning on 08/03. S/p R IJ tunneled hemodialysis catheter placement. Further recommendations based on clinical course. Plan of care discussed with Dr. Flores Subjective 24 Hr Interval Summary Constitutional: no complaints ENT: no complaints Respiratory: no complaints Cardiovascular: no complaints Gastrointestinal: no complaints Genitourinary: no complaints Musculoskeletal: no complaints Skin: no complaints Neurologic: other (Right arm twitching) Endocrine: no complaints Lymphatic: no complaints Exam/Review of Systems Vital Signs Vitals Vital Signs Date Time Temp Pulse Resp B/P Pulse Ox O2 Delivery O2 Flow Rate FiO2 08/12/16 14:55 83 96 40 08/12/16 14:39 5.0 08/12/16 14:38 26 Aerosol Mask 08/12/16 11:22 97.9 120/58 Intake and Output 08/11/16 08/11/16 08/12/16 15:00 23:00 07:00 Intake Total 500 ml 400 ml 120 ml Output Total 2000 ml 0 ml Balance -1500 ml 400 ml 120 ml Exam Constitutional: alert, oriented Psych: nl mood/affect Eyes: EOMI, nl sclera ENMT: nl external ears & nose Neck: non-tender Respiratory: clear to auscultation Cardiovascular: nl pulses Gastrointestinal: non-tender, soft Musculoskeletal: nl extremities to inspection 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: nl speech Skin: nl turgor Lymph: nontender Results Result Diagram: 08/12/16 0646 08/12/16 0616 Results 24 hrs Laboratory Tests Test 08/11/16 17:43 08/11/16 20:25 08/11/16 22:43 08/12/16 06:09 Bedside Glucose 194 109 63 L Troponin I 0.056 Test 08/12/16 06:16 08/12/16 06:46 08/12/16 06:53 08/12/16 07:19 Sodium Level 140 Potassium Level 4.6 Chloride Level 100 Carbon Dioxide Level 24 Anion Gap 21 H Blood Urea Nitrogen 78 H Creatinine 4.57 H Glucose Level 69 #L Calcium Level 9.0 White Blood Count 22.2 #H Red Blood Count 3.75 L Hemoglobin 10.9 L Hematocrit 34.7 L Mean Corpuscular Volume 92.5 Mean Corpuscular Hemoglobin 29.1 Mean Corpuscular Hemoglobin Concent 31.4 L Red Cell Distribution Width 15.0 H Platelet Count 190 # Mean Platelet Volume 11.2 H Neutrophils % 93.0 H Band Neutrophils % 3.0 Lymphocytes % 3.0 L Monocytes % 1.0 Nucleated Red Blood Cells % 2.0 H Neutrophils # 20.6 H Lymphocytes # 0.7 L Monocytes # 0.2 L Prothrombin Time 20.5 #H Prothrombin Time Ratio 1.6 INR International Normalized Ratio 1.74 Bedside Glucose 63 L 140 Test 08/12/16 11:26 Bedside Glucose 107 Medications Medications Current Medications Atorvastatin Calcium (Lipitor) 40 mg HS PO Last administered on 08/11/16 21:21 ; Admin Dose 40 MG; Start 08/01/16 at 21:00 Calcitriol (Rocaltrol) 0.25 mcg DAILY PO Last administered on 08/12/16 08:27; Admin Dose 0.25 MCG; Start 08/01/16 at 09:00 Calcium/Vitamin D (Oyster Shell/ Vit-D (500/200)) 1 tab BID PO Last administered on 08/12/16 08:26; Admin Dose 1 TAB; Start 08/01/16 at 09:00 Hydralazine HCl (Apresoline) 50 mg Q8 PO Last administered on 08/12/16 14:47; Admin Dose 50 MG; Start 08/01/16 at 06:00 Metoprolol Tartrate (Lopressor) 25 mg BID PO Last administered on 08/12/16 08: 26; Admin Dose 25 MG; Start 08/01/16 at 09:00 Paroxetine HCl (Paxil) 10 mg DAILY PO Last administered on 08/12/16 08:27; Admin Dose 10 MG; Start 08/01/16 at 09:00 Acetaminophen (Tylenol Tab) 650 mg Q4H PRN PO PAIN AND OR ELEVATED TEMP Last administered on 08/11/16 21:21; Admin Dose 650 MG; Start 08/01/16 at 00:30 Hydralazine HCl (Apresoline) 20 mg Q6H PRN IV ELEVATED BLOOD PRESSURE Last administered on 08/09/16 03:50; Admin Dose 20 MG; Start 08/01/16 at 00:30 Guaifenesin/ Dextromethorphan (Robitussin Dm Liquid Cup) 10 ml Q4H PRN PO COUGH Last administered on 08/10/16 09:37; Admin Dose 10 ML; Start 08/01/16 at 00:30 Heparin Sodium (Porcine) (Heparin (5000 Units/0.5 ml)) 5,000 unit BID SC Last administered on 08/04/16 08:55; Admin Dose 5,000 UNIT; Start 08/01/16 at 09:00 ; Status Future Hold Diagnostic Test (Pha) (Accu-Chek) 1 ea 02 XX Last administered on 08/11/16 05: 50; Admin Dose 1 EA; Start 08/01/16 at 02:00 Epoetin Braden (Epogen (Esrd)) 6,000 units MoWeFr@17 SC Last administered on 17:44; Admin Dose 6,000 UNITS; Start 08/02/16 at 17:00 Miscellaneous Information 1 ea NOTE XX ; Start 08/02/16 at 12:30 Glucose (Glutose) 15 gm Q15M PRN PO DECREASED GLUCOSE Last administered on 06:27; Admin Dose 15 GM; Start 08/02/16 at 12:30 Glucose (Glutose) 22.5 gm Q15M PRN PO DECREASED GLUCOSE; Start 08/02/16 at 12: 30 Dextrose (D50w Syringe) 25 ml Q15M PRN IV DECREASED GLUCOSE Last administered on 08/12/16 06:59; Admin Dose 25 ML; Start 08/02/16 at 12:30 Dextrose (D50w Syringe) 50 ml Q15M PRN IV DECREASED GLUCOSE; Start 08/02/16 at 12:30 Glucagon (Glucagen) 1 mg Q15M PRN IM DECREASED GLUCOSE; Start 08/02/16 at 12:30 Glucose (Glutose) 15 gm Q15M PRN BUCCAL DECREASED GLUCOSE; Start 08/02/16 at 12 :30 Linagliptin (Tradjenta) 5 mg DAILY PO Last administered on 08/12/16 08:27; Admin Dose 5 MG; Start 08/04/16 at 20:00 Salmeterol Xinafoate/ Fluticasone (Advair 250/50 Diskus) 1 inh BID INH Last administered on 08/12/16 08:24; Admin Dose 1 INH; Start 08/08/16 at 11:00 Montelukast Sodium (Singulair) 10 mg HS PO Last administered on 08/11/16 21:21 ; Admin Dose 10 MG; Start 08/08/16 at 21:00 Tiotropium [place] 1 inh 1 inh DAILY INH Last administered on 08/12/16 08:25; Admin Dose 1 INH; Start 08/08/16 at 11:00 Diltiazem HCl 125 ml @ 5 mls/hr Q24H IV Last administered on 08/09/16 12:34; Admin Dose 5 MLS/HR; Start 08/09/16 at 12:00 Piperacillin Sod/ Tazobactam Sod (Zosyn 2.25gm/ 50ml (Pmx)) 50 ml @ 100 mls/hr Q8 IVPB Last administered on 08/12/16 14:46; Admin Dose 100 MLS/HR; Start at 14:00 Diltiazem HCl (Cardizem Cd) 180 mg DAILY PO Last administered on 08/12/16 08:26 ; Admin Dose 180 MG; Start 08/11/16 at 09:00 Methylprednisolone Sodium Succinate (Solu-Medrol) 40 mg Q6 IV Last administered on 08/12/16 12:56; Admin Dose 40 MG; Start 08/11/16 at 18:00 Insulin Human NPH (Humulin N) 40 unit Q6 SC Last administered on 08/12/16 12:59 ; Admin Dose 40 UNIT; Start 08/12/16 at 12:00 Miscellaneous Information (*Rx Drug Level Order Reminder*) VANCO RANDOM LEVEL... ONCE ONCE XX ; Start 08/13/16 at 05:00; Stop 08/13/16 at 05:01 LALA ORO Aug 12, 2016 15:14
--- NOTE | 2016-08-12 15:17 | CONS ---
Date/Time of Note Date/Time of Note DATE: 08/12/16 TIME: 15:15 Assessment/Plan Assessment/Plan Chief Complaint/Hosp Course SUBJECTIVE: No events overnight. Comfortable on nc, no fevers INDWELLINGS: Right chest PermCath placed on 08/05/2016. MICROBIOLOGY: Blood culture growing Achromobacter. ANTIMICROBIALS: Vanco Zosyn PHYSICAL EXAMINATION: GENERAL: This is a fragile, elderly woman who is alert, in no distress. HEENT: Head atraumatic, normocephalic. Sclerae anicteric. Buccal mucosa dry. NECK: Supple, trachea midline. CHEST: Rise symmetrical. Breath sounds diminished at the bases. HEART: S1, S2. ABDOMEN: Soft, bowel tones present. EXTREMITIES: Without cyanosis. ASSESSMENT: 1. Sepsis with Bacteremia, s/p new permacath 2. Healthcare-acquired pneumonia with hypoxemic respiratory failure 3. End-stage renal disease, hemodialysis dependent. 4. Congestive heart failure. 5. Diabetes. 6. History of pancreatic stent placement. 7. Leukocytosis==> likely steroids induced PLAN: Stable, continue abx, f/u repeat bld cx, pulmonary rec-s DW Staff Problems: Consultation Date/Type/Reason Admit Date/Time Jul 31, 2016 at 19:59 Initial Consult Date 08/06/16 Type of Consultation: id Referring Provider: BRYANT PERALTA Exam/Review of Systems Vital Signs Vitals Vital Signs Date Time Temp Pulse Resp B/P Pulse Ox O2 Delivery O2 Flow Rate FiO2 08/12/16 15:13 97.9 94 27 121/56 97 08/12/16 14:55 40 08/12/16 14:39 5.0 08/12/16 14:38 Aerosol Mask Intake and Output 08/11/16 08/11/16 08/12/16 15:00 23:00 07:00 Intake Total 500 ml 400 ml 120 ml Output Total 2000 ml 0 ml Balance -1500 ml 400 ml 120 ml Results Result Diagram: 08/12/16 0646 08/12/16 0616 Results 24 hrs Laboratory Tests Test 08/11/16 17:43 08/11/16 20:25 08/11/16 22:43 08/12/16 06:09 Bedside Glucose 194 109 63 L Troponin I 0.056 Test 08/12/16 06:16 08/12/16 06:46 08/12/16 06:53 08/12/16 07:19 Sodium Level 140 Potassium Level 4.6 Chloride Level 100 Carbon Dioxide Level 24 Anion Gap 21 H Blood Urea Nitrogen 78 H Creatinine 4.57 H Glucose Level 69 #L Calcium Level 9.0 White Blood Count 22.2 #H Red Blood Count 3.75 L Hemoglobin 10.9 L Hematocrit 34.7 L Mean Corpuscular Volume 92.5 Mean Corpuscular Hemoglobin 29.1 Mean Corpuscular Hemoglobin Concent 31.4 L Red Cell Distribution Width 15.0 H Platelet Count 190 # Mean Platelet Volume 11.2 H Neutrophils % 93.0 H Band Neutrophils % 3.0 Lymphocytes % 3.0 L Monocytes % 1.0 Nucleated Red Blood Cells % 2.0 H Neutrophils # 20.6 H Lymphocytes # 0.7 L Monocytes # 0.2 L Prothrombin Time 20.5 #H Prothrombin Time Ratio 1.6 INR International Normalized Ratio 1.74 Bedside Glucose 63 L 140 Test 08/12/16 11:26 Bedside Glucose 107 Medications Medications Current Medications Atorvastatin Calcium (Lipitor) 40 mg HS PO Last administered on 08/11/16 21:21 ; Admin Dose 40 MG; Start 08/01/16 at 21:00 Calcitriol (Rocaltrol) 0.25 mcg DAILY PO Last administered on 08/12/16 08:27; Admin Dose 0.25 MCG; Start 08/01/16 at 09:00 Calcium/Vitamin D (Oyster Shell/ Vit-D (500/200)) 1 tab BID PO Last administered on 08/12/16 08:26; Admin Dose 1 TAB; Start 08/01/16 at 09:00 Hydralazine HCl (Apresoline) 50 mg Q8 PO Last administered on 08/12/16 14:47; Admin Dose 50 MG; Start 08/01/16 at 06:00 Metoprolol Tartrate (Lopressor) 25 mg BID PO Last administered on 08/12/16 08: 26; Admin Dose 25 MG; Start 08/01/16 at 09:00 Paroxetine HCl (Paxil) 10 mg DAILY PO Last administered on 08/12/16 08:27; Admin Dose 10 MG; Start 08/01/16 at 09:00 Acetaminophen (Tylenol Tab) 650 mg Q4H PRN PO PAIN AND OR ELEVATED TEMP Last administered on 08/11/16 21:21; Admin Dose 650 MG; Start 08/01/16 at 00:30 Hydralazine HCl (Apresoline) 20 mg Q6H PRN IV ELEVATED BLOOD PRESSURE Last administered on 08/09/16 03:50; Admin Dose 20 MG; Start 08/01/16 at 00:30 Guaifenesin/ Dextromethorphan (Robitussin Dm Liquid Cup) 10 ml Q4H PRN PO COUGH Last administered on 08/10/16 09:37; Admin Dose 10 ML; Start 08/01/16 at 00:30 Heparin Sodium (Porcine) (Heparin (5000 Units/0.5 ml)) 5,000 unit BID SC Last administered on 08/04/16 08:55; Admin Dose 5,000 UNIT; Start 08/01/16 at 09:00 ; Status Future Hold Diagnostic Test (Pha) (Accu-Chek) 1 ea 02 XX Last administered on 08/11/16 05: 50; Admin Dose 1 EA; Start 08/01/16 at 02:00 Epoetin Braden (Epogen (Esrd)) 6,000 units MoWeFr@17 SC Last administered on 17:44; Admin Dose 6,000 UNITS; Start 08/02/16 at 17:00 Miscellaneous Information 1 ea NOTE XX ; Start 08/02/16 at 12:30 Glucose (Glutose) 15 gm Q15M PRN PO DECREASED GLUCOSE Last administered on 06:27; Admin Dose 15 GM; Start 08/02/16 at 12:30 Glucose (Glutose) 22.5 gm Q15M PRN PO DECREASED GLUCOSE; Start 08/02/16 at 12: 30 Dextrose (D50w Syringe) 25 ml Q15M PRN IV DECREASED GLUCOSE Last administered on 08/12/16 06:59; Admin Dose 25 ML; Start 08/02/16 at 12:30 Dextrose (D50w Syringe) 50 ml Q15M PRN IV DECREASED GLUCOSE; Start 08/02/16 at 12:30 Glucagon (Glucagen) 1 mg Q15M PRN IM DECREASED GLUCOSE; Start 08/02/16 at 12:30 Glucose (Glutose) 15 gm Q15M PRN BUCCAL DECREASED GLUCOSE; Start 08/02/16 at 12 :30 Linagliptin (Tradjenta) 5 mg DAILY PO Last administered on 08/12/16 08:27; Admin Dose 5 MG; Start 08/04/16 at 20:00 Salmeterol Xinafoate/ Fluticasone (Advair 250/50 Diskus) 1 inh BID INH Last administered on 08/12/16 08:24; Admin Dose 1 INH; Start 08/08/16 at 11:00 Montelukast Sodium (Singulair) 10 mg HS PO Last administered on 08/11/16 21:21 ; Admin Dose 10 MG; Start 08/08/16 at 21:00 Tiotropium [place] 1 inh 1 inh DAILY INH Last administered on 08/12/16 08:25; Admin Dose 1 INH; Start 08/08/16 at 11:00 Diltiazem HCl 125 ml @ 5 mls/hr Q24H IV Last administered on 08/09/16 12:34; Admin Dose 5 MLS/HR; Start 08/09/16 at 12:00 Piperacillin Sod/ Tazobactam Sod (Zosyn 2.25gm/ 50ml (Pmx)) 50 ml @ 100 mls/hr Q8 IVPB Last administered on 08/12/16 14:46; Admin Dose 100 MLS/HR; Start at 14:00 Diltiazem HCl (Cardizem Cd) 180 mg DAILY PO Last administered on 08/12/16 08:26 ; Admin Dose 180 MG; Start 08/11/16 at 09:00 Methylprednisolone Sodium Succinate (Solu-Medrol) 40 mg Q6 IV Last administered on 08/12/16 12:56; Admin Dose 40 MG; Start 08/11/16 at 18:00 Insulin Human NPH (Humulin N) 40 unit Q6 SC Last administered on 08/12/16 12:59 ; Admin Dose 40 UNIT; Start 08/12/16 at 12:00 Miscellaneous Information (*Rx Drug Level Order Reminder*) VANCO RANDOM LEVEL... ONCE ONCE XX ; Start 08/13/16 at 05:00; Stop 08/13/16 at 05:01 NAHUN DOWNEY NP Aug 12, 2016 15:17
--- NOTE | 2016-08-12 19:48 | CONS ---
Date/Time of Note Date/Time of Note DATE: 08/12/16 TIME: 19:47 Consult Date/Type/Reason Admit Date/Time Jul 31, 2016 at 19:59 Initial Consult Date 08/06/16 Type of Consultation: Cardiac and Vascular Ordering Provider: BRYANT PERALTA Objective Vital Signs Date Time Temp Pulse Resp B/P Pulse Ox O2 Delivery O2 Flow Rate FiO2 08/12/16 16:18 97 08/12/16 15:13 97.9 27 121/56 97 08/12/16 14:55 40 08/12/16 14:39 5.0 08/12/16 14:38 Aerosol Mask Intake and Output 08/11/16 08/11/16 08/12/16 15:00 23:00 07:00 Intake Total 500 ml 400 ml 120 ml Output Total 2000 ml 0 ml Balance -1500 ml 400 ml 120 ml Results/Medications Result Diagram: 08/12/16 0646 08/12/16 0616 Results 24 hrs Laboratory Tests Test 08/11/16 20:25 08/11/16 22:43 08/12/16 06:09 08/12/16 06:16 Troponin I 0.056 Bedside Glucose 109 63 L Sodium Level 140 Potassium Level 4.6 Chloride Level 100 Carbon Dioxide Level 24 Anion Gap 21 H Blood Urea Nitrogen 78 H Creatinine 4.57 H Glucose Level 69 #L Calcium Level 9.0 Test 08/12/16 06:46 08/12/16 06:53 08/12/16 07:19 08/12/16 11:26 White Blood Count 22.2 #H Red Blood Count 3.75 L Hemoglobin 10.9 L Hematocrit 34.7 L Mean Corpuscular Volume 92.5 Mean Corpuscular Hemoglobin 29.1 Mean Corpuscular Hemoglobin Concent 31.4 L Red Cell Distribution Width 15.0 H Platelet Count 190 # Mean Platelet Volume 11.2 H Neutrophils % 93.0 H Band Neutrophils % 3.0 Lymphocytes % 3.0 L Monocytes % 1.0 Nucleated Red Blood Cells % 2.0 H Neutrophils # 20.6 H Lymphocytes # 0.7 L Monocytes # 0.2 L Prothrombin Time 20.5 #H Prothrombin Time Ratio 1.6 INR International Normalized Ratio 1.74 Bedside Glucose 63 L 140 107 Test 08/12/16 17:31 Bedside Glucose 105 Medications Current Medications Atorvastatin Calcium (Lipitor) 40 mg HS PO Last administered on 08/11/16 21:21 ; Admin Dose 40 MG; Start 08/01/16 at 21:00 Calcitriol (Rocaltrol) 0.25 mcg DAILY PO Last administered on 08/12/16 08:27; Admin Dose 0.25 MCG; Start 08/01/16 at 09:00 Calcium/Vitamin D (Oyster Shell/ Vit-D (500/200)) 1 tab BID PO Last administered on 08/12/16 08:26; Admin Dose 1 TAB; Start 08/01/16 at 09:00 Hydralazine HCl (Apresoline) 50 mg Q8 PO Last administered on 08/12/16 14:47; Admin Dose 50 MG; Start 08/01/16 at 06:00 Metoprolol Tartrate (Lopressor) 25 mg BID PO Last administered on 08/12/16 08: 26; Admin Dose 25 MG; Start 08/01/16 at 09:00 Paroxetine HCl (Paxil) 10 mg DAILY PO Last administered on 08/12/16 08:27; Admin Dose 10 MG; Start 08/01/16 at 09:00 Acetaminophen (Tylenol Tab) 650 mg Q4H PRN PO PAIN AND OR ELEVATED TEMP Last administered on 08/11/16 21:21; Admin Dose 650 MG; Start 08/01/16 at 00:30 Hydralazine HCl (Apresoline) 20 mg Q6H PRN IV ELEVATED BLOOD PRESSURE Last administered on 08/09/16 03:50; Admin Dose 20 MG; Start 08/01/16 at 00:30 Guaifenesin/ Dextromethorphan (Robitussin Dm Liquid Cup) 10 ml Q4H PRN PO COUGH Last administered on 08/10/16 09:37; Admin Dose 10 ML; Start 08/01/16 at 00:30 Heparin Sodium (Porcine) (Heparin (5000 Units/0.5 ml)) 5,000 unit BID SC Last administered on 08/04/16 08:55; Admin Dose 5,000 UNIT; Start 08/01/16 at 09:00 ; Status Future Hold Diagnostic Test (Pha) (Accu-Chek) 1 ea 02 XX Last administered on 08/11/16 05: 50; Admin Dose 1 EA; Start 08/01/16 at 02:00 Epoetin Braden (Epogen (Esrd)) 6,000 units MoWeFr@17 SC Last administered on 17:44; Admin Dose 6,000 UNITS; Start 08/02/16 at 17:00 Miscellaneous Information 1 ea NOTE XX ; Start 08/02/16 at 12:30 Glucose (Glutose) 15 gm Q15M PRN PO DECREASED GLUCOSE Last administered on 06:27; Admin Dose 15 GM; Start 08/02/16 at 12:30 Glucose (Glutose) 22.5 gm Q15M PRN PO DECREASED GLUCOSE; Start 08/02/16 at 12: 30 Dextrose (D50w Syringe) 25 ml Q15M PRN IV DECREASED GLUCOSE Last administered on 08/12/16 06:59; Admin Dose 25 ML; Start 08/02/16 at 12:30 Dextrose (D50w Syringe) 50 ml Q15M PRN IV DECREASED GLUCOSE; Start 08/02/16 at 12:30 Glucagon (Glucagen) 1 mg Q15M PRN IM DECREASED GLUCOSE; Start 08/02/16 at 12:30 Glucose (Glutose) 15 gm Q15M PRN BUCCAL DECREASED GLUCOSE; Start 08/02/16 at 12 :30 Linagliptin (Tradjenta) 5 mg DAILY PO Last administered on 08/12/16 08:27; Admin Dose 5 MG; Start 08/04/16 at 20:00 Salmeterol Xinafoate/ Fluticasone (Advair 250/50 Diskus) 1 inh BID INH Last administered on 08/12/16 08:24; Admin Dose 1 INH; Start 08/08/16 at 11:00 Montelukast Sodium (Singulair) 10 mg HS PO Last administered on 08/11/16 21:21 ; Admin Dose 10 MG; Start 08/08/16 at 21:00 Tiotropium [place] 1 inh 1 inh DAILY INH Last administered on 08/12/16 08:25; Admin Dose 1 INH; Start 08/08/16 at 11:00 Diltiazem HCl 125 ml @ 5 mls/hr Q24H IV Last administered on 08/09/16 12:34; Admin Dose 5 MLS/HR; Start 08/09/16 at 12:00 Piperacillin Sod/ Tazobactam Sod (Zosyn 2.25gm/ 50ml (Pmx)) 50 ml @ 100 mls/hr Q8 IVPB Last administered on 08/12/16 14:46; Admin Dose 100 MLS/HR; Start at 14:00 Diltiazem HCl (Cardizem Cd) 180 mg DAILY PO Last administered on 08/12/16 08:26 ; Admin Dose 180 MG; Start 08/11/16 at 09:00 Methylprednisolone Sodium Succinate (Solu-Medrol) 40 mg Q6 IV Last administered on 08/12/16 17:33; Admin Dose 40 MG; Start 08/11/16 at 18:00 Insulin Human NPH (Humulin N) 40 unit Q6 SC Last administered on 08/12/16 17:34 ; Admin Dose 40 UNIT; Start 08/12/16 at 12:00 Miscellaneous Information (*Rx Drug Level Order Reminder*) VANCO RANDOM LEVEL... ONCE ONCE XX ; Start 08/13/16 at 05:00; Stop 08/13/16 at 05:01 Assessment/Plan Chief Complaint/Hosp Course Patient is 85 year old F with PMH of HTN, HLD, CKD now presentezd with SOB and ESRD was started on HD. She already has been planning for Stage IV CKD and had fistula done already. Pt does have some SOB. significant Leg edema. Likely realted to CKD and Diastolic HF. LVEF is nl. Problems: Additional Assessment/Plan Pt is afib rate controlled doing fine on Coumadin INR 1.7 continue current med mx SIERRA GARCIA MD Aug 12, 2016 19:48
[2016-08-12] MEDS: MONTELUKAST 10 MG TAB PO SCH (21:00)
[2016-08-12] MEDS: ATORVASTATIN 40 MG TAB PO SCH (21:00)
--- NOTE | 2016-08-12 21:17 | CONS ---
Date/Time of Note Date/Time of Note DATE: 08/12/16 TIME: 21:16 Assessment/Plan Assessment/Plan Chief Complaint/Hosp Course IMPRESSION: 1. End-stage renal disease stage V. 2. Fluid overload.better 3. Pulmonary edema.better 4. Anemia of chronic kidney disease. 5. History of diabetes mellitus. 6. 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 7. AV fistula on the left upper extremity. 8 pneumonia/bronchites plan continue hd fluis res antibiotic will need bronchoscopy? Problems: Consultation Date/Type/Reason Admit Date/Time Jul 31, 2016 at 19:59 Initial Consult Date 08/01/16 Type of Consultation: renal Referring Provider: BRYANT PERALTA 24 HR Interval Summary Subjective hx not possible: other (sob better) Exam/Review of Systems Vital Signs Vitals Vital Signs Date Time Temp Pulse Resp B/P Pulse Ox O2 Delivery O2 Flow Rate FiO2 08/12/16 20:57 102 99 100 08/12/16 20:22 97.2 18 131/59 08/12/16 20:11 Nasal Cannula 5.0 Intake and Output 08/11/16 08/11/16 08/12/16 15:00 23:00 07:00 Intake Total 500 ml 400 ml 120 ml Output Total 2000 ml 0 ml Balance -1500 ml 400 ml 120 ml Exam Neck: supple Respiratory: diminished breath sounds Cardiovascular: regular rate and rhythm Gastrointestinal: soft Musculoskeletal: nl extremities to inspection Extremities: normal pulses Results Result Diagram: 08/12/16 0646 08/12/16 0616 Results 24 hrs Laboratory Tests Test 08/11/16 22:43 08/12/16 06:09 08/12/16 06:16 08/12/16 06:46 Bedside Glucose 109 63 L Sodium Level 140 Potassium Level 4.6 Chloride Level 100 Carbon Dioxide Level 24 Anion Gap 21 H Blood Urea Nitrogen 78 H Creatinine 4.57 H Glucose Level 69 #L Calcium Level 9.0 White Blood Count 22.2 #H Red Blood Count 3.75 L Hemoglobin 10.9 L Hematocrit 34.7 L Mean Corpuscular Volume 92.5 Mean Corpuscular Hemoglobin 29.1 Mean Corpuscular Hemoglobin Concent 31.4 L Red Cell Distribution Width 15.0 H Platelet Count 190 # Mean Platelet Volume 11.2 H Neutrophils % 93.0 H Band Neutrophils % 3.0 Lymphocytes % 3.0 L Monocytes % 1.0 Nucleated Red Blood Cells % 2.0 H Neutrophils # 20.6 H Lymphocytes # 0.7 L Monocytes # 0.2 L Prothrombin Time 20.5 #H Prothrombin Time Ratio 1.6 INR International Normalized Ratio 1.74 Test 08/12/16 06:53 08/12/16 07:19 08/12/16 11:26 08/12/16 17:31 Bedside Glucose 63 L 140 107 105 Test 08/12/16 20:35 08/12/16 21:03 Bedside Glucose 51 L 104 Medications Medications Current Medications Atorvastatin Calcium (Lipitor) 40 mg HS PO Last administered on 08/11/16 21:21 ; Admin Dose 40 MG; Start 08/01/16 at 21:00 Calcitriol (Rocaltrol) 0.25 mcg DAILY PO Last administered on 08/12/16 08:27; Admin Dose 0.25 MCG; Start 08/01/16 at 09:00 Calcium/Vitamin D (Oyster Shell/ Vit-D (500/200)) 1 tab BID PO Last administered on 08/12/16 08:26; Admin Dose 1 TAB; Start 08/01/16 at 09:00 Hydralazine HCl (Apresoline) 50 mg Q8 PO Last administered on 08/12/16 14:47; Admin Dose 50 MG; Start 08/01/16 at 06:00 Metoprolol Tartrate (Lopressor) 25 mg BID PO Last administered on 08/12/16 08: 26; Admin Dose 25 MG; Start 08/01/16 at 09:00 Paroxetine HCl (Paxil) 10 mg DAILY PO Last administered on 08/12/16 08:27; Admin Dose 10 MG; Start 08/01/16 at 09:00 Acetaminophen (Tylenol Tab) 650 mg Q4H PRN PO PAIN AND OR ELEVATED TEMP Last administered on 08/11/16 21:21; Admin Dose 650 MG; Start 08/01/16 at 00:30 Hydralazine HCl (Apresoline) 20 mg Q6H PRN IV ELEVATED BLOOD PRESSURE Last administered on 08/09/16 03:50; Admin Dose 20 MG; Start 08/01/16 at 00:30 Guaifenesin/ Dextromethorphan (Robitussin Dm Liquid Cup) 10 ml Q4H PRN PO COUGH Last administered on 08/10/16 09:37; Admin Dose 10 ML; Start 08/01/16 at 00:30 Heparin Sodium (Porcine) (Heparin (5000 Units/0.5 ml)) 5,000 unit BID SC Last administered on 08/04/16 08:55; Admin Dose 5,000 UNIT; Start 08/01/16 at 09:00 ; Status Future Hold Diagnostic Test (Pha) (Accu-Chek) 1 ea 02 XX Last administered on 08/11/16 05: 50; Admin Dose 1 EA; Start 08/01/16 at 02:00 Epoetin Braden (Epogen (Esrd)) 6,000 units MoWeFr@17 SC Last administered on 17:44; Admin Dose 6,000 UNITS; Start 08/02/16 at 17:00 Miscellaneous Information 1 ea NOTE XX ; Start 08/02/16 at 12:30 Glucose (Glutose) 15 gm Q15M PRN PO DECREASED GLUCOSE Last administered on 06:27; Admin Dose 15 GM; Start 08/02/16 at 12:30 Glucose (Glutose) 22.5 gm Q15M PRN PO DECREASED GLUCOSE; Start 08/02/16 at 12: 30 Dextrose (D50w Syringe) 25 ml Q15M PRN IV DECREASED GLUCOSE Last administered on 08/12/16 20:39; Admin Dose 25 ML; Start 08/02/16 at 12:30 Dextrose (D50w Syringe) 50 ml Q15M PRN IV DECREASED GLUCOSE; Start 08/02/16 at 12:30 Glucagon (Glucagen) 1 mg Q15M PRN IM DECREASED GLUCOSE; Start 08/02/16 at 12:30 Glucose (Glutose) 15 gm Q15M PRN BUCCAL DECREASED GLUCOSE; Start 08/02/16 at 12 :30 Linagliptin (Tradjenta) 5 mg DAILY PO Last administered on 08/12/16 08:27; Admin Dose 5 MG; Start 08/04/16 at 20:00 Salmeterol Xinafoate/ Fluticasone (Advair 250/50 Diskus) 1 inh BID INH Last administered on 08/12/16 08:24; Admin Dose 1 INH; Start 08/08/16 at 11:00 Montelukast Sodium (Singulair) 10 mg HS PO Last administered on 08/11/16 21:21 ; Admin Dose 10 MG; Start 08/08/16 at 21:00 Tiotropium [place] 1 inh 1 inh DAILY INH Last administered on 08/12/16 08:25; Admin Dose 1 INH; Start 08/08/16 at 11:00 Diltiazem HCl 125 ml @ 5 mls/hr Q24H IV Last administered on 08/09/16 12:34; Admin Dose 5 MLS/HR; Start 08/09/16 at 12:00 Piperacillin Sod/ Tazobactam Sod (Zosyn 2.25gm/ 50ml (Pmx)) 50 ml @ 100 mls/hr Q8 IVPB Last administered on 08/12/16 14:46; Admin Dose 100 MLS/HR; Start at 14:00 Diltiazem HCl (Cardizem Cd) 180 mg DAILY PO Last administered on 08/12/16 08:26 ; Admin Dose 180 MG; Start 08/11/16 at 09:00 Methylprednisolone Sodium Succinate (Solu-Medrol) 40 mg Q6 IV Last administered on 08/12/16 17:33; Admin Dose 40 MG; Start 08/11/16 at 18:00 Insulin Human NPH (Humulin N) 40 unit Q6 SC Last administered on 08/12/16 17:34 ; Admin Dose 40 UNIT; Start 08/12/16 at 12:00 Miscellaneous Information (*Rx Drug Level Order Reminder*) VANCO RANDOM LEVEL... ONCE ONCE XX ; Start 08/13/16 at 05:00; Stop 08/13/16 at 05:01 DAT OLSON MD Aug 12, 2016 21:17
[2016-08-12] MEDS ORDERED: INSULIN HUMAN REGULAR 100 UNIT in SOD CHLORIDE 0.9% 99 ML IV PRN (22:07)
[2016-08-12] MEDS ORDERED: DEXTROSE 50% 50 ML SYRINGE IV PRN ×2 (22:30)
[2016-08-12 23:17] LABS: Allen Test ACCEPTAB; Arterial Base Excess -2.1 mmol/L (-3.0-3); Arterial COHb 0.3 % (0.0-3.0); Arterial Fraction of Oxyhgb 95.8 % (93.0-99.0); Arterial HCO3 21.8 mmol/L (22.0-26.0); Arterial MetHb 0.3 % (0.0-1.5); Arterial Total Hemglobin 11.9 g/dl (12.0-18.0); Blood Gas PS 6; MODE MASK - BIPAP
[2016-08-13] VITALS (58 sets, daily range): BP systolic 95–165; BP diastolic 33–115; PULSE 84–165; RESP 17–30
[2016-08-13] MEDS: METHYLPREDNISOLONE 40 MG INJ IV SCH ×2 (00:01→06:22)
[2016-08-13 00:14] LABS: CREATININE 5.45 mg/dl (0.44-1.00)
[2016-08-13] MEDS: ALBUTEROL/IPRATROPIUM (NEB) 3 ML AMP HHN SCH ×4 (02:19→20:52)
[2016-08-13 05:29] LABS: ADD SCAN DIFF NO
[2016-08-13 05:32] LABS: ABNORMAL IP MESSAGE 1; BASOPHILS % 0.2 % (0.0-2.0); HEMATOCRIT 31.6 % (37.0-47.0); HEMOGLOBIN 10.3 g/dl (12.0-16.0); LYMPHOCYTES # 0.1 10^3/ul (0.8-2.9); LYMPHOCYTES % 0.3 % (15.0-51.0); MEAN CORPUSCULAR HGB CONC 32.6 g/dl (32.0-37.0); MEAN CORPUSCULAR VOLUME 92.1 fl (82.0-101.0); MEAN PLATELET VOLUME 10.9 fl (7.4-10.4); MONOCYTE # 0.3 10^3/ul (0.3-0.9); MONOCYTES % 1.2 % (0.0-11.0); NEUTROPHIL # 24.8 10^3/ul (1.6-7.5); NEUTROPHILS % 96.6 % (39.0-77.0); NUCLEATED RED BLOOD CELLS # 0.2 10^3/ul (0.0-0.0); NUCLEATED RED BLOOD CELLS% 0.8 /100WBC (0.0-0.0); PLATELET COUNT 215 10^3/UL (140-415); RED BLOOD COUNT 3.43 10^6/ul (4.20-5.40); RED CELL DISTRIBUTION WIDTH 15.2 % (11.5-14.5); WHITE BLOOD COUNT 25.7 10^3/ul (4.8-10.8)
[2016-08-13 05:51] LABS: INR 1.8; PT RATIO 1.6
[2016-08-13 05:58] LABS: CALCIUM 8.8 mg/dl (8.4-10.2); CREATININE 5.66 mg/dl (0.44-1.00); POTASSIUM 5.4 mmol/L (3.5-5.1)
[2016-08-13] MEDS: PIPER-TAZO 2.25 GM (PMX) 50 ML IVPB SCH ×3 (06:22→23:30)
[2016-08-13] MEDS: FUROSEMIDE 40 MG INJ IV SCH ×2 (06:22→18:00)
[2016-08-13] MEDS: INSULIN ASPART [NOVOLOG] 3 ML PEN SC SCH ×3 (07:35→21:00)
[2016-08-13] MEDS ORDERED: VANCOMYCIN 1 GM in NS 250 ML IVPB ONE (08:00)
[2016-08-13] MEDS: SALMETEROL/FLUTICASONE 250/50 INHA INH SCH ×2 (08:43→21:00)
[2016-08-13] MEDS: TIOTROPIUM 18 MCG CAPSULE INHA DEV INH SCH (08:43)
[2016-08-13] MEDS: DILTIAZEM (CD) 180 MG CAP PO SCH (08:44)
[2016-08-13] MEDS: PAROXETINE 10 MG TAB PO SCH (08:49)
[2016-08-13] MEDS: CALCITRIOL 0.25 MCG CAP PO SCH (08:49)
[2016-08-13] MEDS: CALCIUM/VITAMIN D (500/200) TAB PO SCH ×2 (08:49→21:00)
[2016-08-13] MEDS: METOPROLOL 25 MG TAB PO SCH ×2 (08:49→21:00)
[2016-08-13] MEDS: LINAGLIPTIN 5 MG TABLET PO SCH (08:50)
--- NOTE | 2016-08-13 09:17 | RADRPT ---
PROCEDURE: XR Chest. CLINICAL INDICATION: Shortness of breath. TECHNIQUE: Single frontal view. COMPARISON: 08/10/2016. FINDINGS: There is a tunneled right internal jugular vein dialysis catheter with the tip in the right atrium. Right-sided consolidation and atelectasis is unchanged. There is mild left basilar atelectasis. The heart is enlarged. There is calcification in the aorta consistent with atherosclerosis. There is a moderate right pleural effusion and a small left pleural effusion. There is no pneumothorax. IMPRESSION: 1. No change from 08/10/2016. RPTAT: QQ .Salazar Cruz MD, MD Date Time Electronically viewed and signed by .Salazar Cruz MD, on 08/13/2016 09:17 .R/
--- NOTE | 2016-08-13 09:18 | RADRPT ---
PROCEDURE: XR Chest. CLINICAL INDICATION: Shortness of breath. TECHNIQUE: Single frontal view. COMPARISON: 08/12/2016. FINDINGS: There is a tunneled right internal jugular vein dialysis catheter with the tip in the right atrium. Right-sided consolidation and atelectasis is unchanged. There is mild left basilar atelectasis. The heart is enlarged. There is calcification in the aorta consistent with atherosclerosis. There is a moderate right pleural effusion and a small left pleural effusion. There is no pneumothorax. IMPRESSION: 1. No change from 08/12/2016. RPTAT: QQ .Salazar Cruz MD, MD Date Time Electronically viewed and signed by .Salazar Cruz MD, on 08/13/2016 09:18 .R/
--- NOTE | 2016-08-13 09:25 | CONS ---
Date/Time of Note Date/Time of Note DATE: 08/13/16 TIME: 09:23 Consult Date/Type/Reason Admit Date/Time Jul 31, 2016 at 19:59 Initial Consult Date 08/06/16 Type of Consultation: Cardiac and Vascular Intervent Ordering Provider: BRYANT PERALTA Objective Vital Signs Date Time Temp Pulse Resp B/P Pulse Ox O2 Delivery O2 Flow Rate FiO2 08/13/16 08:09 98 20 95 40 08/13/16 06:32 6.0 08/13/16 06:00 104/53 BIPAP 08/13/16 04:00 98.4 Intake and Output 08/12/16 08/12/16 08/13/16 15:00 23:00 07:00 Intake Total 450 ml 50 ml Output Total 0 ml Balance 450 ml 50 ml Results/Medications Result Diagram: 08/13/16 0430 08/13/16 0430 Results 24 hrs Laboratory Tests Test 08/12/16 11:26 08/12/16 17:31 08/12/16 20:35 08/12/16 21:03 Bedside Glucose 107 105 51 L 104 Test 08/12/16 21:49 08/12/16 22:47 08/12/16 22:51 08/12/16 23:19 Bedside Glucose 73 42 *L 138 Blood Gas Specimen Source Blood arterial Arterial Blood Date Drawn 08/12/2016 11:00:23 PM Arterial Blood pH (Temp corrected) 7.419 Arterial Blood pCO2 (Temp correct) 34.5 L Arterial Blood pO2 (Temp corrected) 89.5 Arterial Blood HCO3 21.8 L Arterial Blood Base Excess -2.1 Arterial Blood Oxygen Saturation 96.4 Chris Test ACCEPTAB Arterial Blood Gas Puncture Site Right Radial Arterial Blood Carboxyhemoglobin 0.3 Arterial Blood Methemoglobin 0.3 Blood Gas A-a O2 Differential 156.0 H Oxyhemoglobin Percent 95.8 Total Hemoglobin 11.9 L Blood Gas Temperature 37.0 Blood Gas Respiration Rate 14.0 Blood Gas Actual Respiration Rate 21 Blood Gas Modality MASK - BIPAP FiO2 40.0 Blood Gas Pressure Support 6 Blood Gas IPAP/EPAP Ratio 04/13 Blood Gas Notified Whom MA Blood Gas Notified Time 08/12/2016 11:17:16 PM Test 08/12/16 23:45 08/13/16 03:00 08/13/16 04:30 08/13/16 04:59 Sodium Level 137 139 Potassium Level 5.0 5.4 H Chloride Level 103 104 Carbon Dioxide Level 21 22 Anion Gap 18 H 18 H Blood Urea Nitrogen 99 H 104 H Creatinine 5.45 H 5.66 H Glucose Level 110 # 71 Calcium Level 9.0 8.8 Bedside Glucose 84 82 White Blood Count 25.7 H Red Blood Count 3.43 L Hemoglobin 10.3 L Hematocrit 31.6 L Mean Corpuscular Volume 92.1 Mean Corpuscular Hemoglobin 30.0 Mean Corpuscular Hemoglobin Concent 32.6 Red Cell Distribution Width 15.2 H Platelet Count 215 Mean Platelet Volume 10.9 H Neutrophils % 96.6 H Lymphocytes % 0.3 L Monocytes % 1.2 Eosinophils % 0.0 Basophils % 0.2 Nucleated Red Blood Cells % 0.8 H Neutrophils # 24.8 H Lymphocytes # 0.1 L Monocytes # 0.3 Eosinophils # 0.0 Basophils # 0.0 Nucleated Red Blood Cells # 0.2 H Prothrombin Time 21.0 H Prothrombin Time Ratio 1.6 INR International Normalized Ratio 1.80 Random Vancomycin Level 15.0 Test 08/13/16 07:24 Bedside Glucose 124 Medications Current Medications Atorvastatin Calcium (Lipitor) 40 mg HS PO Last administered on 08/11/16 21:21 ; Admin Dose 40 MG; Start 08/01/16 at 21:00 Calcitriol (Rocaltrol) 0.25 mcg DAILY PO Last administered on 08/12/16 08:27; Admin Dose 0.25 MCG; Start 08/01/16 at 09:00 Calcium/Vitamin D (Oyster Shell/ Vit-D (500/200)) 1 tab BID PO Last administered on 08/12/16 08:26; Admin Dose 1 TAB; Start 08/01/16 at 09:00 Hydralazine HCl (Apresoline) 50 mg Q8 PO Last administered on 08/12/16 14:47; Admin Dose 50 MG; Start 08/01/16 at 06:00 Metoprolol Tartrate (Lopressor) 25 mg BID PO Last administered on 08/12/16 08: 26; Admin Dose 25 MG; Start 08/01/16 at 09:00 Paroxetine HCl (Paxil) 10 mg DAILY PO Last administered on 08/12/16 08:27; Admin Dose 10 MG; Start 08/01/16 at 09:00 Acetaminophen (Tylenol Tab) 650 mg Q4H PRN PO PAIN AND OR ELEVATED TEMP Last administered on 08/11/16 21:21; Admin Dose 650 MG; Start 08/01/16 at 00:30 Hydralazine HCl (Apresoline) 20 mg Q6H PRN IV ELEVATED BLOOD PRESSURE Last administered on 08/09/16 03:50; Admin Dose 20 MG; Start 08/01/16 at 00:30 Guaifenesin/ Dextromethorphan (Robitussin Dm Liquid Cup) 10 ml Q4H PRN PO COUGH Last administered on 08/10/16 09:37; Admin Dose 10 ML; Start 08/01/16 at 00:30 Heparin Sodium (Porcine) (Heparin (5000 Units/0.5 ml)) 5,000 unit BID SC Last administered on 08/04/16 08:55; Admin Dose 5,000 UNIT; Start 08/01/16 at 09:00 ; Status Future Hold Epoetin Braden (Epogen (Esrd)) 6,000 units MoWeFr@17 SC Last administered on 17:44; Admin Dose 6,000 UNITS; Start 08/02/16 at 17:00 Miscellaneous Information 1 ea NOTE XX ; Start 08/02/16 at 12:30 Glucose (Glutose) 15 gm Q15M PRN PO DECREASED GLUCOSE Last administered on 06:27; Admin Dose 15 GM; Start 08/02/16 at 12:30 Glucose (Glutose) 22.5 gm Q15M PRN PO DECREASED GLUCOSE; Start 08/02/16 at 12: 30 Dextrose (D50w Syringe) 25 ml Q15M PRN IV DECREASED GLUCOSE Last administered on 08/12/16 20:39; Admin Dose 25 ML; Start 08/02/16 at 12:30 Dextrose (D50w Syringe) 50 ml Q15M PRN IV DECREASED GLUCOSE Last administered on 08/12/16 22:52; Admin Dose 50 ML; Start 08/02/16 at 12:30 Glucagon (Glucagen) 1 mg Q15M PRN IM DECREASED GLUCOSE; Start 08/02/16 at 12:30 Glucose (Glutose) 15 gm Q15M PRN BUCCAL DECREASED GLUCOSE; Start 08/02/16 at 12 :30 Linagliptin (Tradjenta) 5 mg DAILY PO Last administered on 08/12/16 08:27; Admin Dose 5 MG; Start 08/04/16 at 20:00 Salmeterol Xinafoate/ Fluticasone (Advair 250/50 Diskus) 1 inh BID INH Last administered on 08/12/16 08:24; Admin Dose 1 INH; Start 08/08/16 at 11:00 Montelukast Sodium (Singulair) 10 mg HS PO Last administered on 08/11/16 21:21 ; Admin Dose 10 MG; Start 08/08/16 at 21:00 Tiotropium [place] 1 inh 1 inh DAILY INH Last administered on 08/12/16 08:25; Admin Dose 1 INH; Start 08/08/16 at 11:00 Piperacillin Sod/ Tazobactam Sod (Zosyn 2.25gm/ 50ml (Pmx)) 50 ml @ 100 mls/hr Q8 IVPB Last administered on 08/13/16 06:22; Admin Dose 100 MLS/HR; Start at 14:00 Diltiazem HCl (Cardizem Cd) 180 mg DAILY PO Last administered on 08/12/16 08:26 ; Admin Dose 180 MG; Start 08/11/16 at 09:00 Methylprednisolone Sodium Succinate (Solu-Medrol) 40 mg Q6 IV Last administered on 08/13/16 06:22; Admin Dose 40 MG; Start 08/11/16 at 18:00 Miscellaneous Information Discontinue all previ... PROTOCOL ONCE XX ; Start 08/12 at 22:30; Stop 08/12/16 at 22:31; Status UNV Insulin Human Regular/Sodium Chloride (Novolin-R/NS) 100 ml @ 0 mls/hr Q0M PRN IV PRN FOR BLOOD SUGAR 180mg/dl; Start 08/12/16 at 22:07 Dextrose (D50w Syringe) 25 ml Q15M PRN IV Till BS 80 mg/dL or above x2; Start 08/12/16 at 22:30 Dextrose 50 ml 50 ml Q15M PRN IV Till BS 80 mg/dL or above x2; Start 08/12/16 at 22:30 Vancomycin HCl (Vancocin) 250 ml @ 125 mls/hr ONCE ONCE IVPB Last administered on 08/13/16t 08:41; Admin Dose 125 MLS/HR; Start 08/13/16 at 08:00; Stop 08/13/16 at 09:59 Assessment/Plan Chief Complaint/Hosp Course Patient is 85 year old F with PMH of HTN, HLD, CKD now presentezd with SOB and ESRD was started on HD. She already has been planning for Stage IV CKD and had fistula done already. Pt does have some SOB. significant Leg edema. Likely realted to CKD and Diastolic HF. LVEF is nl. Problems: Additional Assessment/Plan Patietn go tx out to ICU with lethargy and weakness Her Trop so far neg Echo LVEF is normal on New onset HD WBC is now 25 thousand likey sepsis with cause pulmonary on bipap Sugar was very low today may give d5ns for couple of hours. BP stable I would repeat chest CT but will defer to pulm. will ./SIERRA Don MD Aug 13, 2016 09:25
--- NOTE | 2016-08-13 10:11 | CONS ---
Date/Time of Note Date/Time of Note DATE: 08/13/16 TIME: 10:08 Consult Date/Type/Reason Admit Date/Time Jul 31, 2016 at 19:59 Initial Consult Date 08/06/16 Type of Consultation: pulmonary intensive care Ordering Provider: BRYANT PERALTA Subjective Patient remains on BiPAP this morning awake but confused Accessory muscle use Currently not requiring vasopressors Objective Vital Signs Date Time Temp Pulse Resp B/P Pulse Ox O2 Delivery O2 Flow Rate FiO2 08/13/16 08:09 98 20 95 40 08/13/16 06:32 6.0 08/13/16 06:00 104/53 BIPAP 08/13/16 04:00 98.4 Intake and Output 08/12/16 08/12/16 08/13/16 14:59 22:59 06:59 Intake Total 400 ml 100 ml Output Total 0 ml Balance 400 ml 100 ml Exam GENERAL: Elderly [place] lady on BiPAP appears comfortable VITAL SIGNS: per chart NECK: Supple. No JVD or lymphadenopathy. CARDIAC EXAM: S1, S2. 2/6 systolic ejection murmur CHEST: Diminished air entry bilaterally right greater than left ABDOMEN: Soft, nontender. No guarding or rebound. EXTREMITIES: No cyanosis, clubbing edema +2 NEUROLOGIC: Generalized weakness. Results/Medications Result Diagram: 08/13/16 0430 08/13/16 0430 Results 24 hrs Chest x-ray Right greater than left infiltrate and effusion CT chest Dense right lower lobe pneumonia small to moderate right pleural effusion Laboratory Tests Test 08/12/16 11:26 08/12/16 17:31 08/12/16 20:35 08/12/16 21:03 Bedside Glucose 107 105 51 L 104 Test 08/12/16 21:49 08/12/16 22:47 08/12/16 22:51 08/12/16 23:19 Bedside Glucose 73 42 *L 138 Blood Gas Specimen Source Blood arterial Arterial Blood Date Drawn 08/12/2016 11:00:23 PM Arterial Blood pH (Temp corrected) 7.419 Arterial Blood pCO2 (Temp correct) 34.5 L Arterial Blood pO2 (Temp corrected) 89.5 Arterial Blood HCO3 21.8 L Arterial Blood Base Excess -2.1 Arterial Blood Oxygen Saturation 96.4 Chris Test ACCEPTAB Arterial Blood Gas Puncture Site Right Radial Arterial Blood Carboxyhemoglobin 0.3 Arterial Blood Methemoglobin 0.3 Blood Gas A-a O2 Differential 156.0 H Oxyhemoglobin Percent 95.8 Total Hemoglobin 11.9 L Blood Gas Temperature 37.0 Blood Gas Respiration Rate 14.0 Blood Gas Actual Respiration Rate 21 Blood Gas Modality MASK - BIPAP FiO2 40.0 Blood Gas Pressure Support 6 Blood Gas IPAP/EPAP Ratio 04/13 Blood Gas Notified Whom MA Blood Gas Notified Time 08/12/2016 11:17:16 PM Test 08/12/16 23:45 08/13/16 03:00 08/13/16 04:30 08/13/16 04:59 Sodium Level 137 139 Potassium Level 5.0 5.4 H Chloride Level 103 104 Carbon Dioxide Level 21 22 Anion Gap 18 H 18 H Blood Urea Nitrogen 99 H 104 H Creatinine 5.45 H 5.66 H Glucose Level 110 # 71 Calcium Level 9.0 8.8 Bedside Glucose 84 82 White Blood Count 25.7 H Red Blood Count 3.43 L Hemoglobin 10.3 L Hematocrit 31.6 L Mean Corpuscular Volume 92.1 Mean Corpuscular Hemoglobin 30.0 Mean Corpuscular Hemoglobin Concent 32.6 Red Cell Distribution Width 15.2 H Platelet Count 215 Mean Platelet Volume 10.9 H Neutrophils % 96.6 H Lymphocytes % 0.3 L Monocytes % 1.2 Eosinophils % 0.0 Basophils % 0.2 Nucleated Red Blood Cells % 0.8 H Neutrophils # 24.8 H Lymphocytes # 0.1 L Monocytes # 0.3 Eosinophils # 0.0 Basophils # 0.0 Nucleated Red Blood Cells # 0.2 H Prothrombin Time 21.0 H Prothrombin Time Ratio 1.6 INR International Normalized Ratio 1.80 Random Vancomycin Level 15.0 Test 08/13/16 07:24 Bedside Glucose 124 Medications Current Medications Atorvastatin Calcium (Lipitor) 40 mg HS PO Last administered on 08/11/16 21:21 ; Admin Dose 40 MG; Start 08/01/16 at 21:00 Calcitriol (Rocaltrol) 0.25 mcg DAILY PO Last administered on 08/12/16 08:27; Admin Dose 0.25 MCG; Start 08/01/16 at 09:00 Calcium/Vitamin D (Oyster Shell/ Vit-D (500/200)) 1 tab BID PO Last administered on 08/12/16 08:26; Admin Dose 1 TAB; Start 08/01/16 at 09:00 Hydralazine HCl (Apresoline) 50 mg Q8 PO Last administered on 08/12/16 14:47; Admin Dose 50 MG; Start 08/01/16 at 06:00 Metoprolol Tartrate (Lopressor) 25 mg BID PO Last administered on 08/12/16 08: 26; Admin Dose 25 MG; Start 08/01/16 at 09:00 Paroxetine HCl (Paxil) 10 mg DAILY PO Last administered on 08/12/16 08:27; Admin Dose 10 MG; Start 08/01/16 at 09:00 Acetaminophen (Tylenol Tab) 650 mg Q4H PRN PO PAIN AND OR ELEVATED TEMP Last administered on 08/11/16 21:21; Admin Dose 650 MG; Start 08/01/16 at 00:30 Hydralazine HCl (Apresoline) 20 mg Q6H PRN IV ELEVATED BLOOD PRESSURE Last administered on 08/09/16 03:50; Admin Dose 20 MG; Start 08/01/16 at 00:30 Guaifenesin/ Dextromethorphan (Robitussin Dm Liquid Cup) 10 ml Q4H PRN PO COUGH Last administered on 08/10/16 09:37; Admin Dose 10 ML; Start 08/01/16 at 00:30 Heparin Sodium (Porcine) (Heparin (5000 Units/0.5 ml)) 5,000 unit BID SC Last administered on 08/04/16 08:55; Admin Dose 5,000 UNIT; Start 08/01/16 at 09:00 ; Status Future Hold Epoetin Braden (Epogen (Esrd)) 6,000 units MoWeFr@17 SC Last administered on 17:44; Admin Dose 6,000 UNITS; Start 08/02/16 at 17:00 Miscellaneous Information 1 ea NOTE XX ; Start 08/02/16 at 12:30 Glucose (Glutose) 15 gm Q15M PRN PO DECREASED GLUCOSE Last administered on 06:27; Admin Dose 15 GM; Start 08/02/16 at 12:30 Glucose (Glutose) 22.5 gm Q15M PRN PO DECREASED GLUCOSE; Start 08/02/16 at 12: 30 Dextrose (D50w Syringe) 25 ml Q15M PRN IV DECREASED GLUCOSE Last administered on 08/12/16 20:39; Admin Dose 25 ML; Start 08/02/16 at 12:30 Dextrose (D50w Syringe) 50 ml Q15M PRN IV DECREASED GLUCOSE Last administered on 08/12/16 22:52; Admin Dose 50 ML; Start 08/02/16 at 12:30 Glucagon (Glucagen) 1 mg Q15M PRN IM DECREASED GLUCOSE; Start 08/02/16 at 12:30 Glucose (Glutose) 15 gm Q15M PRN BUCCAL DECREASED GLUCOSE; Start 08/02/16 at 12 :30 Linagliptin (Tradjenta) 5 mg DAILY PO Last administered on 08/12/16 08:27; Admin Dose 5 MG; Start 08/04/16 at 20:00 Salmeterol Xinafoate/ Fluticasone (Advair 250/50 Diskus) 1 inh BID INH Last administered on 08/12/16 08:24; Admin Dose 1 INH; Start 08/08/16 at 11:00 Montelukast Sodium (Singulair) 10 mg HS PO Last administered on 08/11/16 21:21 ; Admin Dose 10 MG; Start 08/08/16 at 21:00 Tiotropium [place] 1 inh 1 inh DAILY INH Last administered on 08/12/16 08:25; Admin Dose 1 INH; Start 08/08/16 at 11:00 Piperacillin Sod/ Tazobactam Sod (Zosyn 2.25gm/ 50ml (Pmx)) 50 ml @ 100 mls/hr Q8 IVPB Last administered on 08/13/16 06:22; Admin Dose 100 MLS/HR; Start at 14:00 Diltiazem HCl (Cardizem Cd) 180 mg DAILY PO Last administered on 08/12/16 08:26 ; Admin Dose 180 MG; Start 08/11/16 at 09:00 Methylprednisolone Sodium Succinate (Solu-Medrol) 40 mg Q6 IV Last administered on 08/13/16 06:22; Admin Dose 40 MG; Start 08/11/16 at 18:00 Miscellaneous Information Discontinue all previ... PROTOCOL ONCE XX ; Start 08/12 at 22:30; Stop 08/12/16 at 22:31; Status UNV Insulin Human Regular/Sodium Chloride (Novolin-R/NS) 100 ml @ 0 mls/hr Q0M PRN IV PRN FOR BLOOD SUGAR 180mg/dl; Start 08/12/16 at 22:07 Dextrose (D50w Syringe) 25 ml Q15M PRN IV Till BS 80 mg/dL or above x2; Start 08/12/16 at 22:30 Dextrose (D50w Syringe) 50 ml Q15M PRN IV Till BS 80 mg/dL or above x2; Start 08/12/16 at 22:30 Assessment/Plan Chief Complaint/Hosp Course Assessment 1. Hypoxemic respiratory failure possibly secondary to aspiration pneumonia versus healthcare associated pneumonia. Pleural effusion with compressive atelectasis 2. Severe sepsis 3. Altered mental status likely toxic metabolic encephalopathy 4. End-stage renal failure on hemodialysis 5. Dysphagia Plan 1. Thoracentesis with pleural fluid studies, patient not stable for bronchoscopy of present 2. Incentive spirometry if tolerated 3. Chest PT 4. Aspiration precautions 5. Consider broadening antibiotics 6. We'll stop steroids no significant component of bronchospasm 7. DVT GI prophylaxis Disposition Continue current ICU care Patient remains DO NOT INTUBATE Problems: PATRIC HORVATH MD, [facility] Aug 13, 2016 10:11
--- NOTE | 2016-08-13 10:27 | PN ---
Date/Time of Note Date/Time of Note DATE: 08/13/16 TIME: 10:24 Assessment/Plan Lines/Catheters IV Catheter Type (from [facility]): Peripheral IV Chavez in Place (from [facility]): No Assessment/Plan Chief Complaint/Hosp Course -Chronic kidney disease stage V, impending end-stage renal disease: Fistula has not fully matured yet. S/P Maurice Catheter, S/P R IJ perm catheter -Patient seems confused recommend CT Brain -Bilateral lower extremity atherosclerosis: Will continue our vascular surveillance. No further intervention is needed at this time and will follow as an outpatient. -Optimize vascular status (blood pressure medications, diet, nutrition, exercise , sugar control, antiplatelets). -Discussed findings, plan and management with the patient. She understands with a certified field marketing lead. -Thank you for allowing us to partake in the care of your patient. Please call with any questions. Problems: Subjective 24 Hr Interval Summary pt not able to answer questions and seems confused, on BIPAP Exam/Review of Systems Vital Signs Vitals Vital Signs Date Time Temp Pulse Resp B/P Pulse Ox O2 Delivery O2 Flow Rate FiO2 08/13/16 08:09 98 20 95 40 08/13/16 06:32 6.0 08/13/16 06:00 104/53 BIPAP 08/13/16 04:00 98.4 Intake and Output 08/12/16 08/12/16 08/13/16 15:00 23:00 07:00 Intake Total 450 ml 50 ml Output Total 0 ml Balance 450 ml 50 ml Exam Free Text/Dictation GENERAL: Alert and awake no oriented on BIPAP PULMONARY: Bilateral crackles at the bases. CARDIOVASCULAR: S1, S2 present. ABDOMEN: Soft, nontender, nondistended. Bowel sounds positive. Truncal obesity. EXTREMITIES: LEFT UPPER EXTREMITY: Palpable brachial pulse. Motor, sensory intact. Capillary refill 2 to 3 seconds. Surgical scar well healed. Fistula with bruit and thrill present. ecchymosis at the elbow Results Result Diagram: 08/13/1642908/13/16429 ELIZA LI MD Aug 13, 2016 10:27
[2016-08-13] MEDS: DEXTROSE 5%-0.45% NACL 1,000 ML IV SCH (11:30)
--- NOTE | 2016-08-13 12:05 | CONS ---
Date/Time of Note Date/Time of Note DATE: 08/13/16 TIME: 11:58 Assessment/Plan Assessment/Plan Chief Complaint/Hosp Course 85 year old female admitted with bronchopneumonia, renal failure receiving IV solumedrol with diffuse high frequency tremor, suspect likely secondary to high dose steroids doubt this is a seizure. May obtain MRI Brain without contrast to rule out possibility of ischemic event taper steroids when respiratory status more optimized Problems: Consultation Date/Type/Reason Admit Date/Time Jul 31, 2016 at 19:59 Date of Consultation: Aug 13, 2016 Type of Consultation: Neurology Reason for Consultation evaluation for tremors Referring Provider: LALA ORO Hx of Present Illness 85 year old female admitted with bilateral bronchopneumonia with renal failure transferred to the ICU overnight for worsening respiratory status currently receiving BIPAP with encephalopathy. Previously she was at baseline, ambulating on the floors with assistance and eating, conversive. Neurology consultation was requested yesterday to evaluate for right hand tremors and rule out possibility of seizures. She has been receiving high dose IV steroids for management of pneumonia, currently on Solumedrol 40 mg q6h. Constitutional: no complaints Eyes: no complaints ENT: no complaints Respiratory: no complaints Cardiovascular: no complaints Gastrointestinal: no complaints Genitourinary: no complaints Musculoskeletal: no complaints Skin: no complaints Neurologic: other (Right arm twitching) Endocrine: no complaints Lymphatic: no complaints Psychological: nl mood/affect Past Medical History Medical History: congestive heart failure, coronary artery disease, diabetes, high cholesterol, hypertension, renal disease, other (depression, COPD) Past Surgical History Past Surgical Hx: other (pancreas stent placement, fistula placement) Social History Alcohol Use: rarely Smoking Status: Former smoker (1 ppd x 25 y) Drug Use: none Exam/Review of Systems Vital Signs Vitals Vital Signs Date Time Temp Pulse Resp B/P Pulse Ox O2 Delivery O2 Flow Rate FiO2 08/13/16 11:05 102 98 30 08/13/16 10:45 22 150/61 BIPAP 08/13/16 08:00 97.9 08/13/16 06:32 6.0 Intake and Output 08/12/16 08/12/16 08/13/16 15:00 23:00 07:00 Intake Total 450 ml 50 ml Output Total 0 ml Balance 450 ml 50 ml Exam arousable to verbal stimuli opens her eyes currently on bipap follows only 1 step simple commands CN: ANGELI, gaze in all directions, no nystagmus no obvious facial asymmetry Motor: lifts both UE anti-gravity with high frequency intention tremor that is persistent upon movement Coordination: bilateral ataxia with high frequency tremor worse on right arm compared to left she also begins to have tremors in her LE upon movement Reflexes symmetric throughout toes downgoing Results Result Diagram: 08/13/16 0430 08/13/16 0430 Results 24 hrs Laboratory Tests Test 08/12/16 17:31 08/12/16 20:35 08/12/16 21:03 08/12/16 21:49 Bedside Glucose 105 51 L 104 73 Test 08/12/16 22:47 08/12/16 22:51 08/12/16 23:19 08/12/16 23:45 Bedside Glucose 42 *L 138 Blood Gas Specimen Source Blood arterial Arterial Blood Date Drawn 08/12/2016 11:00:23 PM Arterial Blood pH (Temp corrected) 7.419 Arterial Blood pCO2 (Temp correct) 34.5 L Arterial Blood pO2 (Temp corrected) 89.5 Arterial Blood HCO3 21.8 L Arterial Blood Base Excess -2.1 Arterial Blood Oxygen Saturation 96.4 Chris Test ACCEPTAB Arterial Blood Gas Puncture Site Right Radial Arterial Blood Carboxyhemoglobin 0.3 Arterial Blood Methemoglobin 0.3 Blood Gas A-a O2 Differential 156.0 H Oxyhemoglobin Percent 95.8 Total Hemoglobin 11.9 L Blood Gas Temperature 37.0 Blood Gas Respiration Rate 14.0 Blood Gas Actual Respiration Rate 21 Blood Gas Modality MASK - BIPAP FiO2 40.0 Blood Gas Pressure Support 6 Blood Gas IPAP/EPAP Ratio 04/13 Blood Gas Notified Whom [place] Blood Gas Notified Time 08/12/2016 11:17:16 PM Sodium Level 137 Potassium Level 5.0 Chloride Level 103 Carbon Dioxide Level 21 Anion Gap 18 H Blood Urea Nitrogen 99 H Creatinine 5.45 H Glucose Level 110 # Calcium Level 9.0 Test 08/13/16 03:00 08/13/16 04:30 08/13/16 04:59 08/13/16 07:24 Bedside Glucose 84 82 124 White Blood Count 25.7 H Red Blood Count 3.43 L Hemoglobin 10.3 L Hematocrit 31.6 L Mean Corpuscular Volume 92.1 Mean Corpuscular Hemoglobin 30.0 Mean Corpuscular Hemoglobin Concent 32.6 Red Cell Distribution Width 15.2 H Platelet Count 215 Mean Platelet Volume 10.9 H Neutrophils % 96.6 H Lymphocytes % 0.3 L Monocytes % 1.2 Eosinophils % 0.0 Basophils % 0.2 Nucleated Red Blood Cells % 0.8 H Neutrophils # 24.8 H Lymphocytes # 0.1 L Monocytes # 0.3 Eosinophils # 0.0 Basophils # 0.0 Nucleated Red Blood Cells # 0.2 H Prothrombin Time 21.0 H Prothrombin Time Ratio 1.6 INR International Normalized Ratio 1.80 Sodium Level 139 Potassium Level 5.4 H Chloride Level 104 Carbon Dioxide Level 22 Anion Gap 18 H Blood Urea Nitrogen 104 H Creatinine 5.66 H Glucose Level 71 Calcium Level 8.8 Random Vancomycin Level 15.0 Medications Medications Current Medications Atorvastatin Calcium (Lipitor) 40 mg HS PO Last administered on 08/11/16 21:21 ; Admin Dose 40 MG; Start 08/01/16 at 21:00 Calcitriol (Rocaltrol) 0.25 mcg DAILY PO Last administered on 08/12/16 08:27; Admin Dose 0.25 MCG; Start 08/01/16 at 09:00 Calcium/Vitamin D (Oyster Shell/ Vit-D (500/200)) 1 tab BID PO Last administered on 08/12/16 08:26; Admin Dose 1 TAB; Start 08/01/16 at 09:00 Hydralazine HCl (Apresoline) 50 mg Q8 PO Last administered on 08/12/16 14:47; Admin Dose 50 MG; Start 08/01/16 at 06:00 Metoprolol Tartrate (Lopressor) 25 mg BID PO Last administered on 08/12/16 08: 26; Admin Dose 25 MG; Start 08/01/16 at 09:00 Paroxetine HCl (Paxil) 10 mg DAILY PO Last administered on 08/12/16 08:27; Admin Dose 10 MG; Start 08/01/16 at 09:00 Acetaminophen (Tylenol Tab) 650 mg Q4H PRN PO PAIN AND OR ELEVATED TEMP Last administered on 08/11/16 21:21; Admin Dose 650 MG; Start 08/01/16 at 00:30 Hydralazine HCl (Apresoline) 20 mg Q6H PRN IV ELEVATED BLOOD PRESSURE Last administered on 08/09/16 03:50; Admin Dose 20 MG; Start 08/01/16 at 00:30 Guaifenesin/ Dextromethorphan (Robitussin Dm Liquid Cup) 10 ml Q4H PRN PO COUGH Last administered on 08/10/16 09:37; Admin Dose 10 ML; Start 08/01/16 at 00:30 Heparin Sodium (Porcine) (Heparin (5000 Units/0.5 ml)) 5,000 unit BID SC Last administered on 08/04/16 08:55; Admin Dose 5,000 UNIT; Start 08/01/16 at 09:00 ; Status Future Hold Epoetin Braden (Epogen (Esrd)) 6,000 units MoWeFr@17 SC Last administered on 17:44; Admin Dose 6,000 UNITS; Start 08/02/16 at 17:00 Miscellaneous Information 1 ea NOTE XX ; Start 08/02/16 at 12:30 Glucose (Glutose) 15 gm Q15M PRN PO DECREASED GLUCOSE Last administered on 06:27; Admin Dose 15 GM; Start 08/02/16 at 12:30 Glucose (Glutose) 22.5 gm Q15M PRN PO DECREASED GLUCOSE; Start 08/02/16 at 12: 30 Dextrose (D50w Syringe) 25 ml Q15M PRN IV DECREASED GLUCOSE Last administered on 08/12/16 20:39; Admin Dose 25 ML; Start 08/02/16 at 12:30 Dextrose (D50w Syringe) 50 ml Q15M PRN IV DECREASED GLUCOSE Last administered on 08/12/16 22:52; Admin Dose 50 ML; Start 08/02/16 at 12:30 Glucagon (Glucagen) 1 mg Q15M PRN IM DECREASED GLUCOSE; Start 08/02/16 at 12:30 Glucose (Glutose) 15 gm Q15M PRN BUCCAL DECREASED GLUCOSE; Start 08/02/16 at 12 :30 Linagliptin (Tradjenta) 5 mg DAILY PO Last administered on 08/12/16 08:27; Admin Dose 5 MG; Start 08/04/16 at 20:00 Salmeterol Xinafoate/ Fluticasone (Advair 250/50 Diskus) 1 inh BID INH Last administered on 08/12/16 08:24; Admin Dose 1 INH; Start 08/08/16 at 11:00 Montelukast Sodium (Singulair) 10 mg HS PO Last administered on 08/11/16 21:21 ; Admin Dose 10 MG; Start 08/08/16 at 21:00 Tiotropium [place] 1 inh 1 inh DAILY INH Last administered on 08/12/16 08:25; Admin Dose 1 INH; Start 08/08/16 at 11:00 Piperacillin Sod/ Tazobactam Sod (Zosyn 2.25gm/ 50ml (Pmx)) 50 ml @ 100 mls/hr Q8 IVPB Last administered on 08/13/16 06:22; Admin Dose 100 MLS/HR; Start at 14:00 Diltiazem HCl (Cardizem Cd) 180 mg DAILY PO Last administered on 08/12/16 08:26 ; Admin Dose 180 MG; Start 08/11/16 at 09:00 Miscellaneous Information Discontinue all previ... PROTOCOL ONCE XX ; Start 08/12 at 22:30; Stop 08/12/16 at 22:31; Status UNV Insulin Human Regular/Sodium Chloride (Novolin-R/NS) 100 ml @ 0 mls/hr Q0M PRN IV PRN FOR BLOOD SUGAR 180mg/dl; Start 08/12/16 at 22:07 Dextrose (D50w Syringe) 25 ml Q15M PRN IV Till BS 80 mg/dL or above x2; Start 08/12/16 at 22:30 Dextrose 50 ml 50 ml Q15M PRN IV Till BS 80 mg/dL or above x2; Start 08/12/16 at 22:30 Dextrose/Sodium Chloride (D5-1/2ns) 1,000 ml @ 50 mls/hr Q20H IV ; Start at 11:30; Status UNV VANESA MCLAUGHLIN MD Aug 13, 2016 12:05
--- NOTE | 2016-08-13 12:30 | PN ---
Date/Time of Note Date/Time of Note DATE: 08/13/16 TIME: 12:21 Assessment/Plan VTE Prophylaxis VTE Prophylaxis Intervention: SCD's Lines/Catheters IV Catheter Type (from [facility]): Peripheral IV Urinary Cath still in place: No Assessment/Plan Chief Complaint/Hosp Course Assessment and plan: -Acute encephalopathy, pending MRI of the head. Dr Wiggins is following in neurology consultation. Continue ICU monitoring. -Acute respiratory insufficiency secondary to pneumonia and COPD exacerbation. -Sepsis with bacteremia. Dr. Eric is following in infection disease consultation. Continue antibiotics per ID. - Right-sided pneumonia. - A-fib with RVR, continue Cardizem, patient is followed by Dr. Stuart in cardiology. - COPD exacerbation, continue breathing treatment. Dr. Natarajan is following in pulmonology consultation - End-stage renal disease stage V. Dr. Leon is following in nephrology consultation. Continue to hemodialysis via right femoral hemodialysis catheter. - Pulmonary edema. Continue diuresis. - Anemia of chronic kidney disease. Continue Epogen. - Diabetes mellitus type [address] Garcia is following an endocrinology consultation. Continue NPH. - Hypertension, continue Norvasc. -Left upper extremity AV fistula, non-matured -Status post right hemodialysis non-tunneled catheter placement by Dr. Manning on 08/03. S/p R IJ tunneled hemodialysis catheter placement. Further recommendations based on clinical course. Plan of care discussed with Dr. Flores Problems: Subjective 24 Hr Interval Summary Free Text/Dictation Patient is lethargic but arousable, continues on BiPAP, tachycardic. Exam/Review of Systems Vital Signs Vitals Vital Signs Date Time Temp Pulse Resp B/P Pulse Ox O2 Delivery O2 Flow Rate FiO2 08/13/16 12:00 113 08/13/16 11:05 98 30 08/13/16 10:45 22 150/61 BIPAP 08/13/16 08:00 97.9 08/13/16 06:32 6.0 Intake and Output 08/12/16 08/12/16 08/13/16 15:00 23:00 07:00 Intake Total 450 ml 50 ml Output Total 0 ml Balance 450 ml 50 ml Exam Constitutional: alert, oriented Psych: no complaints Head: atraumatic, normocephalic Eyes: nl conjunctiva ENMT: nl external ears & nose, nl lips & teeth Neck: non-tender, supple Respiratory: Rhonchi bilaterally Cardiovascular: nl pulses, regular rate and rhythm Gastrointestinal: non-tender, soft Musculoskeletal: nl extremities to inspection Extremities: normal pulses 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 intact Additional Comments Left upper extremities with AV fistula with palpable thrill and audible bruit Right IJ permacath Results Result Diagram: 08/13/16 0430 08/13/16 0430 Results 24 hrs Laboratory Tests Test 08/12/16 17:31 08/12/16 20:35 08/12/16 21:03 08/12/16 21:49 Bedside Glucose 105 51 L 104 73 Test 08/12/16 22:47 08/12/16 22:51 08/12/16 23:19 08/12/16 23:45 Bedside Glucose 42 *L 138 Blood Gas Specimen Source Blood arterial Arterial Blood Date Drawn 08/12/2016 11:00:23 PM Arterial Blood pH (Temp corrected) 7.419 Arterial Blood pCO2 (Temp correct) 34.5 L Arterial Blood pO2 (Temp corrected) 89.5 Arterial Blood HCO3 21.8 L Arterial Blood Base Excess -2.1 Arterial Blood Oxygen Saturation 96.4 Chris Test ACCEPTAB Arterial Blood Gas Puncture Site Right Radial Arterial Blood Carboxyhemoglobin 0.3 Arterial Blood Methemoglobin 0.3 Blood Gas A-a O2 Differential 156.0 H Oxyhemoglobin Percent 95.8 Total Hemoglobin 11.9 L Blood Gas Temperature 37.0 Blood Gas Respiration Rate 14.0 Blood Gas Actual Respiration Rate 21 Blood Gas Modality MASK - BIPAP FiO2 40.0 Blood Gas Pressure Support 6 Blood Gas IPAP/EPAP Ratio 04/13 Blood Gas Notified Whom [place] Blood Gas Notified Time 08/12/2016 11:17:16 PM Sodium Level 137 Potassium Level 5.0 Chloride Level 103 Carbon Dioxide Level 21 Anion Gap 18 H Blood Urea Nitrogen 99 H Creatinine 5.45 H Glucose Level 110 # Calcium Level 9.0 Test 08/13/16 03:00 08/13/16 04:30 08/13/16 04:59 08/13/16 07:24 Bedside Glucose 84 82 124 White Blood Count 25.7 H Red Blood Count 3.43 L Hemoglobin 10.3 L Hematocrit 31.6 L Mean Corpuscular Volume 92.1 Mean Corpuscular Hemoglobin 30.0 Mean Corpuscular Hemoglobin Concent 32.6 Red Cell Distribution Width 15.2 H Platelet Count 215 Mean Platelet Volume 10.9 H Neutrophils % 96.6 H Lymphocytes % 0.3 L Monocytes % 1.2 Eosinophils % 0.0 Basophils % 0.2 Nucleated Red Blood Cells % 0.8 H Neutrophils # 24.8 H Lymphocytes # 0.1 L Monocytes # 0.3 Eosinophils # 0.0 Basophils # 0.0 Nucleated Red Blood Cells # 0.2 H Prothrombin Time 21.0 H Prothrombin Time Ratio 1.6 INR International Normalized Ratio 1.80 Sodium Level 139 Potassium Level 5.4 H Chloride Level 104 Carbon Dioxide Level 22 Anion Gap 18 H Blood Urea Nitrogen 104 H Creatinine 5.66 H Glucose Level 71 Calcium Level 8.8 Random Vancomycin Level 15.0 Test 08/13/16 12:00 Bedside Glucose 88 Medications Medications Current Medications Atorvastatin Calcium (Lipitor) 40 mg HS PO Last administered on 08/11/16 21:21 ; Admin Dose 40 MG; Start 08/01/16 at 21:00 Calcitriol (Rocaltrol) 0.25 mcg DAILY PO Last administered on 08/12/16 08:27; Admin Dose 0.25 MCG; Start 08/01/16 at 09:00 Calcium/Vitamin D (Oyster Shell/ Vit-D (500/200)) 1 tab BID PO Last administered on 08/12/16 08:26; Admin Dose 1 TAB; Start 08/01/16 at 09:00 Hydralazine HCl (Apresoline) 50 mg Q8 PO Last administered on 08/12/16 14:47; Admin Dose 50 MG; Start 08/01/16 at 06:00 Metoprolol Tartrate (Lopressor) 25 mg BID PO Last administered on 08/12/16 08: 26; Admin Dose 25 MG; Start 08/01/16 at 09:00 Paroxetine HCl (Paxil) 10 mg DAILY PO Last administered on 08/12/16 08:27; Admin Dose 10 MG; Start 08/01/16 at 09:00 Acetaminophen (Tylenol Tab) 650 mg Q4H PRN PO PAIN AND OR ELEVATED TEMP Last administered on 08/11/16 21:21; Admin Dose 650 MG; Start 08/01/16 at 00:30 Hydralazine HCl (Apresoline) 20 mg Q6H PRN IV ELEVATED BLOOD PRESSURE Last administered on 08/09/16 03:50; Admin Dose 20 MG; Start 08/01/16 at 00:30 Guaifenesin/ Dextromethorphan (Robitussin Dm Liquid Cup) 10 ml Q4H PRN PO COUGH Last administered on 08/10/16 09:37; Admin Dose 10 ML; Start 08/01/16 at 00:30 Heparin Sodium (Porcine) (Heparin (5000 Units/0.5 ml)) 5,000 unit BID SC Last administered on 08/04/16 08:55; Admin Dose 5,000 UNIT; Start 08/01/16 at 09:00 ; Status Future Hold Epoetin Braden (Epogen (Esrd)) 6,000 units MoWeFr@17 SC Last administered on 17:44; Admin Dose 6,000 UNITS; Start 08/02/16 at 17:00 Miscellaneous Information 1 ea NOTE XX ; Start 08/02/16 at 12:30 Glucose (Glutose) 15 gm Q15M PRN PO DECREASED GLUCOSE Last administered on 06:27; Admin Dose 15 GM; Start 08/02/16 at 12:30 Glucose (Glutose) 22.5 gm Q15M PRN PO DECREASED GLUCOSE; Start 08/02/16 at 12: 30 Dextrose (D50w Syringe) 25 ml Q15M PRN IV DECREASED GLUCOSE Last administered on 08/12/16 20:39; Admin Dose 25 ML; Start 08/02/16 at 12:30 Dextrose (D50w Syringe) 50 ml Q15M PRN IV DECREASED GLUCOSE Last administered on 08/12/16 22:52; Admin Dose 50 ML; Start 08/02/16 at 12:30 Glucagon (Glucagen) 1 mg Q15M PRN IM DECREASED GLUCOSE; Start 08/02/16 at 12:30 Glucose (Glutose) 15 gm Q15M PRN BUCCAL DECREASED GLUCOSE; Start 08/02/16 at 12 :30 Linagliptin (Tradjenta) 5 mg DAILY PO Last administered on 08/12/16 08:27; Admin Dose 5 MG; Start 08/04/16 at 20:00 Salmeterol Xinafoate/ Fluticasone (Advair 250/50 Diskus) 1 inh BID INH Last administered on 08/12/16 08:24; Admin Dose 1 INH; Start 08/08/16 at 11:00 Montelukast Sodium (Singulair) 10 mg HS PO Last administered on 08/11/16 21:21 ; Admin Dose 10 MG; Start 08/08/16 at 21:00 Tiotropium [place] 1 inh 1 inh DAILY INH Last administered on 08/12/16 08:25; Admin Dose 1 INH; Start 08/08/16 at 11:00 Piperacillin Sod/ Tazobactam Sod (Zosyn 2.25gm/ 50ml (Pmx)) 50 ml @ 100 mls/hr Q8 IVPB Last administered on 08/13/16 06:22; Admin Dose 100 MLS/HR; Start at 14:00 Diltiazem HCl (Cardizem Cd) 180 mg DAILY PO Last administered on 08/12/16 08:26 ; Admin Dose 180 MG; Start 08/11/16 at 09:00 Miscellaneous Information Discontinue all previ... PROTOCOL ONCE XX ; Start 08/12 at 22:30; Stop 08/12/16 at 22:31; Status UNV Insulin Human Regular/Sodium Chloride (Novolin-R/NS) 100 ml @ 0 mls/hr Q0M PRN IV PRN FOR BLOOD SUGAR 180mg/dl; Start 08/12/16 at 22:07 Dextrose (D50w Syringe) 25 ml Q15M PRN IV Till BS 80 mg/dL or above x2; Start 08/12/16 at 22:30 Dextrose 50 ml 50 ml Q15M PRN IV Till BS 80 mg/dL or above x2; Start 08/12/16 at 22:30 Dextrose/Sodium Chloride (D5-1/2ns) 1,000 ml @ 50 mls/hr Q20H IV ; Start at 11:30 BRYANT PERALTA Aug 13, 2016 12:30
--- NOTE | 2016-08-13 12:39 | PN ---
DATE: 08/13/2016 SUBJECTIVE: Patient was transferred to ICU secondary to tremors, acute encephalopathy and acute res piratory distress. She is on BiPAP, awake, looks comfortable, no fevers. VITAL SIGNS: Temperature 97.9, pulse 102, respirations 22, blood pressure 150/61, saturation 99%. LABORATORY: WBC 25.7, H and H 10.3 and 31.6, platelets 215, neutrophils 96.6. INDWELLINGS: Right chest PermCath, peripheral IV. DIAGNOSTICS: Chest x-ray revealed right-sided consolidation, atelectasis with pleural effusions. ANTIMICROBIALS: The patient remains on: 1. Vancomycin. 2. Zosyn. PHYSICAL EXAMINATION: GENERAL: This is a fragile, elderly woman who is awake, in no distress. HEENT: Head atraumatic, normocephalic. Sclerae anicteric. Buccal mucosa pink, dry. NECK: Supple. CHEST: Rise symmetrical. Breath sounds diminished with scattered crackles. HEART: S1, S2. ABDOMEN: Soft. Bowel tones present. EXTREMITIES: Without cyanosis. Multiple ecchymotic areas. ASSESSMENT: 1. Sepsis with acute hypoxemic respiratory failure. 2. Pneumonia. 3. Bilateral pleural effusions. 4. Status post bacteremia. 5. End-stage renal disease, hemodialysis dependent. 6. History of recent femoral catheter removal. 7. Diabetes. 8. History of pancreatic stent placement. PLAN: The patient remains hemodynamically stable. She is being seen by multiple consultants. She is on appropriate antimicrobials. She is also on steroids. Pending brain MRI, pending repeat blood cultures. Dictated By: NAHUN DOWNEY AUTOMATION DRIVER for GURINDER HURT/SYED Conf#: [id number] DID#: [id number]
[2016-08-13 13:33] LABS: AADO2 Arterial 157.7 mmHg (7.0-24.0); Allen Test ACCEPTAB; Arterial Base Excess -2.7 mmol/L (-3.0-3); Arterial COHb 0.3 % (0.0-3.0); Arterial Fraction of Oxyhgb 95.9 % (93.0-99.0); Arterial HCO3 21.3 mmol/L (22.0-26.0); Arterial MetHb 0.3 % (0.0-1.5); MODE MASK - BIPAP
--- NOTE | 2016-08-13 15:12 | RADRPT ---
Vent Rate: 134 bpm RR Interval: 0 msec [place] Interval: 0 msec QRS Duration: 86 msec QT Interval: 242 msec QTC Interval: 361 msec P-R-T [place]: 0 - -8 - -17 degrees Atrial fibrillation with rapid ventricular response Abnormal ECG Electronically Signed By: José Antonio Cortez [id number]
--- NOTE | 2016-08-13 15:13 | RADRPT ---
Vent Rate: 135 bpm RR Interval: 0 msec CA Interval: 0 msec QRS Duration: 84 msec QT Interval: 284 msec QTC Interval: 426 msec P-R-T [place]: 0 - 12 - 72 degrees Atrial fibrillation with rapid ventricular response Possible Anterior infarct , age undetermined Abnormal ECG Electronically Signed By: Willem Osorio [id number]
--- NOTE | 2016-08-13 16:12 | SP ---
DATE OF PROCEDURE: 08/12/2016 ELECTROENCEPHALOGRAM HISTORY: This is an 85-year-old woman with anemia, chronic kidney disease, atrial fibrillation, who was found to be shaking and having tremors. CURRENT MEDICATIONS: 1. Diltiazem. 2. Singulair. 3. Advair. 4. Vancomycin. 5. Cardizem. 6. Tradjenta. 7. Epogen. 8. Lipitor. PROCEDURE: Utilizing a 16-channel EEG machine, cap scalp electrodes were applied in accordance with International 10/20 system. [id number] and [id number] montages were displayed. Electrical i mpedances were measured and reported. DESCRIPTION: During the resting state, posterior dominant rhythm of about 7 to 8 Hz were seen bihem ispherically. Photic stimulation had a good response. Hyperventilation was not performed. There w as no focal lateralizing or epileptiform discharge identified. INTERPRETATION: This is mildly abnormal EEG due to presence of bihemispheric background slowing wit hout any epileptiform activity, consistent with mild encephalopathy. Please correlate these finding s with the patient's clinical picture. Dictated By: CORIE BALTAZAR/SYED Conf#: [id number] DID#: [id number]
[2016-08-13] MEDS ORDERED: METOPROLOL 5 MG INJ IV ONE (17:00)
[2016-08-13] MEDS ORDERED: GLUCAGON 1 MG INJ IM PRN (17:30)
[2016-08-13] MEDS ORDERED: DEXTROSE 50% 50 ML SYRINGE IV PRN ×2 (17:30)
[2016-08-13] MEDS ORDERED: GLUCOSE GEL 15 GRAM TUBE BUCCAL PRN (17:30)
[2016-08-13] MEDS ORDERED: GLUCOSE GEL 15 GRAM TUBE PO PRN ×2 (17:30)
--- NOTE | 2016-08-13 17:55 | RADRPT ---
PROCEDURE: XR Chest. CLINICAL INDICATION: Shortness of breath. Nasogastric tube placement TECHNIQUE: A single portable view of the chest was obtained. COMPARISON: 08/13/2016 from 05:36 a.m. FINDINGS: A nasogastric tube is seen in the gastric lumen. The tip of the nasogastric tube is incompletely vi sualized. The right-sided hemodialysis catheter is unchanged. The aorta is tortuous and atheroscler otic. The cardiomediastinal silhouette is otherwise enlarged and is stable. Diffuse pulmonary vasc ular congestion is seen with likely underlying pulmonary edema and is unchanged. Bilateral pleural e ffusions are again noted and are stable. The soft tissues and osseous structures demonstrate benign age related senescent changes. IMPRESSION: 1. Interval placement of a nasogastric tube in the gastric lumen with the tip not visualized. Consi nilseh a KUB to evaluate the nasogastric tube tip location. 2. Radiographic findings of congestive heart failure again seen which is stable. RPTAT: HPNM Physician Donnell Date Time Electronically viewed and signed by Physician Donnell on 08/13/2016 17:55 /
[2016-08-13] MEDS: EPOETIN 3000 UNITS/1 ML INJ (ESRD) SC SCH (18:08)
[2016-08-13] MEDS ORDERED: AMIODARONE 900 MG in DEXTROSE 5% 482 ML IV SCH (18:30)
[2016-08-13] MEDS ORDERED: AMIODARONE 150MG/D5W BOLUS 100 ML IV ONE (18:30)
[2016-08-13] MEDS: DILTIAZEM-D5W 125MG/125ML DRIP 125 ML IV SCH ×2 (18:40→23:39)
[2016-08-13] MEDS: ATORVASTATIN 40 MG TAB PO SCH (21:00)
[2016-08-13] MEDS: MONTELUKAST 10 MG TAB PO SCH (21:00)
--- NOTE | 2016-08-13 21:04 | CONS ---
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 NPH d/c'ed. Pt. w/ increasing resp. distress and AMS. Transferred to ICU and insulin drip ordered. However, steroids held secondary to myoclonic jerks. With discontinuation of steroids, pt. will not likely require insulin. Will cont. to follow but doubt pt. will experience hyperglycemia without steroid treatment. Qualifiers: Diabetes mellitus terminologist insulin use: with correction use Chronic kidney disease stage: stage 5, not on chronic dialysis Qualified Code: E11.22 - Type 2 diabetes mellitus with stage 5 chronic kidney disease not on chronic dialysis, with long-term current use of insulin Consultation Date/Type/Reason Admit Date/Time Jul 31, 2016 at 19:59 Initial Consult Date 08/06/16 Type of Consultation: Endocrinology Reason for Consultation T2DM OOC Referring Provider: LALA ORO 24 HR Interval Summary Subjective hx not possible: pt non-verbal Exam/Review of Systems Vital Signs Vitals Vital Signs Date Time Temp Pulse Resp B/P Pulse Ox O2 Delivery O2 Flow Rate FiO2 08/13/16 20:30 117 25 151/56 97 08/13/16 20:00 97.5 Nasal Cannula 4.0 08/13/16 11:05 30 Intake and Output 08/12/16 08/12/16 08/13/16 15:00 23:00 07:00 Intake Total 450 ml 50 ml Output Total 0 ml Balance 450 ml 50 ml Exam Constitutional: distress (expressing respiratory fatigue), frail, obese Respiratory: labored breathing Cardiovascular: irregular rhythm (and tachycardic), No edema, No murmurs/extra sounds, No rub Gastrointestinal: bowel sounds, nl liver, spleen, non-tender, soft, No mass, No rebound or guarding Musculoskeletal: nl extremities to inspection Extremities: normal pulses, No clubbing, No cyanosis, No edema 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: 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 II-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 intact, lethargic, nl mental status, nl speech Additional Comments Bedside Glucose - 72 Hours Test 08/10/16 23:05 08/11/16 05:50 08/11/16 07:36 08/11/16 12:00 Bedside Glucose 85mg/dL (70-220) 129mg/dL (70-220) 122mg/dL (70-220) 123mg/dL (70-220) Test 08/11/16 17:43 08/11/16 22:43 08/12/16 06:09 08/12/16 06:53 Bedside Glucose 194mg/dL (70-220) 109mg/dL (70-220) 63mg/dL (70-220) L 63mg/dL (70-220) L Test 08/12/16 07:19 08/12/16 11:26 08/12/16 17:31 08/12/16 20:35 Bedside Glucose 140mg/dL (70-220) 107mg/dL (70-220) 105mg/dL (70-220) 51mg/dL (70-220) L Test 08/12/16 21:03 08/12/16 21:49 08/12/16 22:47 08/12/16 23:19 Bedside Glucose 104mg/dL (70-220) 73mg/dL (70-220) 42mg/dL (70-220) *L 138mg/dL (70-220) Test 08/13/16 03:00 08/13/16 04:59 08/13/16 07:24 08/13/16 12:00 Bedside Glucose 84mg/dL (70-220) 82mg/dL (70-220) 124mg/dL (70-220) 88mg/dL (70-220) Test 08/13/16 16:50 08/13/16 20:19 Bedside Glucose 150mg/dL (70-220) 139mg/dL (70-220) Results Result Diagram: 08/13/16 0430 08/13/16 0430 Results 24 hrs Laboratory Tests Test 08/12/16 21:03 08/12/16 21:49 08/12/16 22:47 08/12/16 22:51 Bedside Glucose 104 73 42 *L Blood Gas Specimen Source Blood arterial Arterial Blood Date Drawn 08/12/2016 11:00:23 PM Arterial Blood pH (Temp corrected) 7.419 Arterial Blood pCO2 (Temp correct) 34.5 L Arterial Blood pO2 (Temp corrected) 89.5 Arterial Blood HCO3 21.8 L Arterial Blood Base Excess -2.1 Arterial Blood Oxygen Saturation 96.4 Chris Test ACCEPTAB Arterial Blood Gas Puncture Site Right Radial Arterial Blood Carboxyhemoglobin 0.3 Arterial Blood Methemoglobin 0.3 Blood Gas A-a O2 Differential 156.0 H Oxyhemoglobin Percent 95.8 Total Hemoglobin 11.9 L Blood Gas Temperature 37.0 Blood Gas Respiration Rate 14.0 Blood Gas Actual Respiration Rate 21 Blood Gas Modality MASK - BIPAP FiO2 40.0 Blood Gas Pressure Support 6 Blood Gas IPAP/EPAP Ratio 04/13 Blood Gas Notified Whom MA Blood Gas Notified Time 08/12/2016 11:17:16 PM Test 08/12/16 23:19 08/12/16 23:45 08/13/16 03:00 08/13/16 04:30 Bedside Glucose 138 84 Sodium Level 137 139 Potassium Level 5.0 5.4 H Chloride Level 103 104 Carbon Dioxide Level 21 22 Anion Gap 18 H 18 H Blood Urea Nitrogen 99 H 104 H Creatinine 5.45 H 5.66 H Glucose Level 110 # 71 Calcium Level 9.0 8.8 White Blood Count 25.7 H Red Blood Count 3.43 L Hemoglobin 10.3 L Hematocrit 31.6 L Mean Corpuscular Volume 92.1 Mean Corpuscular Hemoglobin 30.0 Mean Corpuscular Hemoglobin Concent 32.6 Red Cell Distribution Width 15.2 H Platelet Count 215 Mean Platelet Volume 10.9 H Neutrophils % 96.6 H Lymphocytes % 0.3 L Monocytes % 1.2 Eosinophils % 0.0 Basophils % 0.2 Nucleated Red Blood Cells % 0.8 H Neutrophils # 24.8 H Lymphocytes # 0.1 L Monocytes # 0.3 Eosinophils # 0.0 Basophils # 0.0 Nucleated Red Blood Cells # 0.2 H Prothrombin Time 21.0 H Prothrombin Time Ratio 1.6 INR International Normalized Ratio 1.80 Random Vancomycin Level 15.0 Test 08/13/16 04:59 08/13/16 07:24 08/13/16 07:57 08/13/16 12:00 Bedside Glucose 82 124 88 Blood Gas Specimen Source Blood arterial Arterial Blood Date Drawn 08/13/2016 8:16:32 AM Arterial Blood pH (Temp corrected) 7.411 Arterial Blood pCO2 (Temp correct) 34.3 L Arterial Blood pO2 (Temp corrected) 88.1 Arterial Blood HCO3 21.3 L Arterial Blood Base Excess -2.7 Arterial Blood Oxygen Saturation 96.5 Chris Test ACCEPTAB Arterial Blood Gas Puncture Site Right Radial Arterial Blood Carboxyhemoglobin 0.3 Arterial Blood Methemoglobin 0.3 Blood Gas A-a O2 Differential 157.7 H Oxyhemoglobin Percent 95.9 Total Hemoglobin 11.0 L Blood Gas Temperature 37.0 Blood Gas Respiration Rate 14.0 Blood Gas Actual Respiration Rate 20 Blood Gas Modality MASK - BIPAP FiO2 40.0 Blood Gas IPAP/EPAP Ratio 04/13 Blood Gas Notified Whom JLD Blood Gas Notified Time 08/13/2016 8:31:11 AM Test 08/13/16 16:50 08/13/16 20:19 Bedside Glucose 150 139 Medications Medications Current Medications Atorvastatin Calcium (Lipitor) 40 mg HS PO Last administered on 08/11/16 21:21 ; Admin Dose 40 MG; Start 08/01/16 at 21:00 Calcitriol (Rocaltrol) 0.25 mcg DAILY PO Last administered on 08/12/16 08:27; Admin Dose 0.25 MCG; Start 08/01/16 at 09:00 Calcium/Vitamin D (Oyster Shell/ Vit-D (500/200)) 1 tab BID PO Last administered on 08/12/16 08:26; Admin Dose 1 TAB; Start 08/01/16 at 09:00 Hydralazine HCl (Apresoline) 50 mg Q8 PO Last administered on 08/12/16 14:47; Admin Dose 50 MG; Start 08/01/16 at 06:00 Metoprolol Tartrate (Lopressor) 25 mg BID PO Last administered on 08/12/16 08: 26; Admin Dose 25 MG; Start 08/01/16 at 09:00 Paroxetine HCl (Paxil) 10 mg DAILY PO Last administered on 08/12/16 08:27; Admin Dose 10 MG; Start 08/01/16 at 09:00 Acetaminophen (Tylenol Tab) 650 mg Q4H PRN PO PAIN AND OR ELEVATED TEMP Last administered on 08/11/16 21:21; Admin Dose 650 MG; Start 08/01/16 at 00:30 Hydralazine HCl (Apresoline) 20 mg Q6H PRN IV ELEVATED BLOOD PRESSURE Last administered on 08/09/16 03:50; Admin Dose 20 MG; Start 08/01/16 at 00:30 Guaifenesin/ Dextromethorphan (Robitussin Dm Liquid Cup) 10 ml Q4H PRN PO COUGH Last administered on 08/10/16 09:37; Admin Dose 10 ML; Start 08/01/16 at 00:30 Heparin Sodium (Porcine) (Heparin (5000 Units/0.5 ml)) 5,000 unit BID SC Last administered on 08/04/16 08:55; Admin Dose 5,000 UNIT; Start 08/01/16 at 09:00 ; Status Future Hold Epoetin Braden (Epogen (Esrd)) 6,000 units MoWeFr@17 SC Last administered on 18:08; Admin Dose 6,000 UNITS; Start 08/02/16 at 17:00 Miscellaneous Information 1 ea NOTE XX ; Start 08/02/16 at 12:30 Linagliptin (Tradjenta) 5 mg DAILY PO Last administered on 08/12/16 08:27; Admin Dose 5 MG; Start 08/04/16 at 20:00 Salmeterol Xinafoate/ Fluticasone (Advair 250/50 Diskus) 1 inh BID INH Last administered on 08/12/16 08:24; Admin Dose 1 INH; Start 08/08/16 at 11:00 Montelukast Sodium (Singulair) 10 mg HS PO Last administered on 08/11/16 21:21 ; Admin Dose 10 MG; Start 08/08/16 at 21:00 Tiotropium [place] 1 inh 1 inh DAILY INH Last administered on 08/12/16 08:25; Admin Dose 1 INH; Start 08/08/16 at 11:00 Piperacillin Sod/ Tazobactam Sod (Zosyn 2.25gm/ 50ml (Pmx)) 50 ml @ 100 mls/hr Q8 IVPB Last administered on 08/13/16 15:21; Admin Dose 100 MLS/HR; Start at 14:00 Diltiazem HCl (Cardizem Cd) 180 mg DAILY PO Last administered on 08/12/16 08:26 ; Admin Dose 180 MG; Start 08/11/16 at 09:00 Miscellaneous Information Discontinue all previ... PROTOCOL ONCE XX ; Start 08/12 at 22:30; Stop 08/12/16 at 22:31; Status UNV Dextrose/Sodium Chloride (D5-1/2ns) 1,000 ml @ 50 mls/hr Q20H IV Last administered on 08/13/16 11:30; Admin Dose 50 MLS/HR; Start 08/13/16 at 11:30 Insulin Aspart (Novolog Insulin Pen) NOVOLOG *MILD* ALGORI... Q4 SC ; Start 08/13 at 21:00 Miscellaneous Information 1 ea NOTE XX ; Start 08/13/16 at 17:30 Glucose (Glutose) 15 gm Q15M PRN PO DECREASED GLUCOSE; Start 08/13/16 at 17:30 Glucose (Glutose) 22.5 gm Q15M PRN PO DECREASED GLUCOSE; Start 08/13/16 at 17:30 Dextrose (D50w Syringe) 25 ml Q15M PRN IV DECREASED GLUCOSE; Start 08/13/16 at 17:30 Dextrose (D50w Syringe) 50 ml Q15M PRN IV DECREASED GLUCOSE; Start 08/13/16 at 17:30 Glucagon (Glucagen) 1 mg Q15M PRN IM DECREASED GLUCOSE; Start 08/13/16 at 17:30 Glucose 15 gm 15 gm Q15M PRN BUCCAL DECREASED GLUCOSE; Start 08/13/16 at 17:30 Diltiazem HCl (Cardizem-D5W 125 Mg/125 ml Drip) 125 ml @ 5 mls/hr TITRATE IV Last administered on 08/13/16 18:40; Admin Dose 5 MLS/HR; Start 08/13/16 at 19:00 JUDAH NOE MD Aug 13, 2016 21:03
--- NOTE | 2016-08-13 23:13 | RADRPT ---
PROCEDURE: MRI Brain without contrast. CLINICAL INDICATION: TECHNIQUE: An MRI of the brain was performed on a high resolution hi-definition MRI scanner utiliz ing the following sequences: Sagittal and axial T1 weighted, axial T2 weighted, coronal GRE, axial diffusion weighted with ADC mapping, coronal GRE, and axial FLAIR. COMPARISON: CT brain 05/30/[address] brain 06/23/2014 FINDINGS: The scalp and calvarium are normal. The visualized orbits demonstrate prior lens replacement. The b ilateral paranasal sinuses are remarkable for mild right posterior ethmoid chronic mucosal thickenin g. The bilateral mastoid air cells demonstrate incomplete pneumatization. The bilateral middle ear cavities are clear. No extra-axial fluid collections are present. The ventricles, sulci and cisterns are age appropriat e. Moderate volume loss is present. Confluent wedge-shaped foci of FLAIR and T2 hyperintensity is present in the left frontal , left parietal, right parietal and bilateral occipital lobes compatible with chronic infarcts. Confluent hyperintensity is also noted in the bilateral subcortical white m atter, bilateral centrum semiovale, bilateral periventricular white matter, bilateral basal ganglia compatible with mild chronic microvascular ischemic disease and chronic bilateral basal ganglia [place] infarcts. No evidence of intracranial hemorrhage, mass effect or midline shift is present. . N o diffusion weighted abnormalities are seen to suggest the presence of acute ischemia or recent infa rct. No hypointense signal abnormalities are seen on the GRE images to suggest the presence of bloo d degradation products. Normal flow voids are visible in the proximal intracranial arteries and dural sinuses, indicating patency. IMPRESSION: 1. No evidence for acute infarcts, hemorrhage, or acute intracranial pathology. 2. Chronic left frontal, bilateral parietal, and bilateral occipital lobe infarcts. 3. Moderate diffuse volume loss 4. Chronic right posterior ethmoid sinus disease. RPTAT: HDC .Miladys Dean MD, MD Date Time Electronically viewed and signed by .Miladys Dean MD, MD on 08/13/2016 23:12 .C/
[2016-08-14] VITALS (80 sets, daily range): BP systolic 89–148; BP diastolic 40–82; PULSE 70–110; RESP 11–29
--- NOTE | 2016-08-14 00:32 | CONS ---
Date/Time of Note Date/Time of Note DATE: 08/14/16 TIME: 00:31 Assessment/Plan Assessment/Plan Chief Complaint/Hosp Course IMPRESSION: 1. End-stage renal disease stage V. 2. Fluid overload.better 3. Pulmonary edema.better 4. Anemia of chronic kidney disease. 5. History of diabetes mellitus. 6. 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 7. AV fistula on the left upper extremity. 8 pneumonia/bronchites plan continue hd fluis res antibiotic will need bronchoscopy? Problems: Consultation Date/Type/Reason Admit Date/Time Jul 31, 2016 at 19:59 Initial Consult Date 08/01/16 Type of Consultation: renal Referring Provider: LALA ORO 24 HR Interval Summary Constitutional: requiring O2 Exam/Review of Systems Vital Signs Vitals Vital Signs Date Time Temp Pulse Resp B/P Pulse Ox O2 Delivery O2 Flow Rate FiO2 08/13/16 23:30 114 28 127/57 92 08/13/16 23:00 Nasal Cannula 4.0 08/13/16 22:04 33 08/13/16 20:00 97.5 Intake and Output 08/13/16 08/13/16 08/14/16 15:00 23:00 07:00 Intake Total 250 ml 1010 ml Output Total 2200 ml Balance 250 ml -1190 ml Exam Neck: supple Respiratory: clear to auscultation Cardiovascular: regular rate and rhythm Gastrointestinal: soft Results Result Diagram: 08/13/16 0430 08/13/16 0430 Results 24 hrs Laboratory Tests Test 08/13/16 03:00 08/13/16 04:30 08/13/16 04:59 08/13/16 07:24 Bedside Glucose 84 82 124 White Blood Count 25.7 H Red Blood Count 3.43 L Hemoglobin 10.3 L Hematocrit 31.6 L Mean Corpuscular Volume 92.1 Mean Corpuscular Hemoglobin 30.0 Mean Corpuscular Hemoglobin Concent 32.6 Red Cell Distribution Width 15.2 H Platelet Count 215 Mean Platelet Volume 10.9 H Neutrophils % 96.6 H Lymphocytes % 0.3 L Monocytes % 1.2 Eosinophils % 0.0 Basophils % 0.2 Nucleated Red Blood Cells % 0.8 H Neutrophils # 24.8 H Lymphocytes # 0.1 L Monocytes # 0.3 Eosinophils # 0.0 Basophils # 0.0 Nucleated Red Blood Cells # 0.2 H Prothrombin Time 21.0 H Prothrombin Time Ratio 1.6 INR International Normalized Ratio 1.80 Sodium Level 139 Potassium Level 5.4 H Chloride Level 104 Carbon Dioxide Level 22 Anion Gap 18 H Blood Urea Nitrogen 104 H Creatinine 5.66 H Glucose Level 71 Calcium Level 8.8 Random Vancomycin Level 15.0 Test 08/13/16 07:57 08/13/16 12:00 08/13/16 16:50 08/13/16 20:19 Blood Gas Specimen Source Blood arterial Arterial Blood Date Drawn 08/13/2016 8:16:32 AM Arterial Blood pH (Temp corrected) 7.411 Arterial Blood pCO2 (Temp correct) 34.3 L Arterial Blood pO2 (Temp corrected) 88.1 Arterial Blood HCO3 21.3 L Arterial Blood Base Excess -2.7 Arterial Blood Oxygen Saturation 96.5 Chris Test ACCEPTAB Arterial Blood Gas Puncture Site Right Radial Arterial Blood Carboxyhemoglobin 0.3 Arterial Blood Methemoglobin 0.3 Blood Gas A-a O2 Differential 157.7 H Oxyhemoglobin Percent 95.9 Total Hemoglobin 11.0 L Blood Gas Temperature 37.0 Blood Gas Respiration Rate 14.0 Blood Gas Actual Respiration Rate 20 Blood Gas Modality MASK - BIPAP FiO2 40.0 Blood Gas IPAP/EPAP Ratio 04/13 Blood Gas Notified Whom JLD Blood Gas Notified Time 08/13/2016 8:31:11 AM Bedside Glucose 88 150 139 Medications Medications Current Medications Atorvastatin Calcium (Lipitor) 40 mg HS PO Last administered on 08/11/16 21:21 ; Admin Dose 40 MG; Start 08/01/16 at 21:00 Calcitriol (Rocaltrol) 0.25 mcg DAILY PO Last administered on 08/12/16 08:27; Admin Dose 0.25 MCG; Start 08/01/16 at 09:00 Calcium/Vitamin D (Oyster Shell/ Vit-D (500/200)) 1 tab BID PO Last administered on 08/12/16 08:26; Admin Dose 1 TAB; Start 08/01/16 at 09:00 Hydralazine HCl (Apresoline) 50 mg Q8 PO Last administered on 08/12/16 14:47; Admin Dose 50 MG; Start 08/01/16 at 06:00 Metoprolol Tartrate (Lopressor) 25 mg BID PO Last administered on 08/12/16 08: 26; Admin Dose 25 MG; Start 08/01/16 at 09:00 Paroxetine HCl (Paxil) 10 mg DAILY PO Last administered on 08/12/16 08:27; Admin Dose 10 MG; Start 08/01/16 at 09:00 Acetaminophen (Tylenol Tab) 650 mg Q4H PRN PO PAIN AND OR ELEVATED TEMP Last administered on 08/11/16 21:21; Admin Dose 650 MG; Start 08/01/16 at 00:30 Hydralazine HCl (Apresoline) 20 mg Q6H PRN IV ELEVATED BLOOD PRESSURE Last administered on 08/09/16 03:50; Admin Dose 20 MG; Start 08/01/16 at 00:30 Guaifenesin/ Dextromethorphan (Robitussin Dm Liquid Cup) 10 ml Q4H PRN PO COUGH Last administered on 08/10/16 09:37; Admin Dose 10 ML; Start 08/01/16 at 00:30 Heparin Sodium (Porcine) (Heparin (5000 Units/0.5 ml)) 5,000 unit BID SC Last administered on 08/04/16 08:55; Admin Dose 5,000 UNIT; Start 08/01/16 at 09:00 ; Status Future Hold Epoetin Braden (Epogen (Esrd)) 6,000 units MoWeFr@17 SC Last administered on 18:08; Admin Dose 6,000 UNITS; Start 08/02/16 at 17:00 Miscellaneous Information 1 ea NOTE XX ; Start 08/02/16 at 12:30 Linagliptin (Tradjenta) 5 mg DAILY PO Last administered on 08/12/16 08:27; Admin Dose 5 MG; Start 08/04/16 at 20:00 Salmeterol Xinafoate/ Fluticasone (Advair 250/50 Diskus) 1 inh BID INH Last administered on 08/12/16 08:24; Admin Dose 1 INH; Start 08/08/16 at 11:00 Montelukast Sodium (Singulair) 10 mg HS PO Last administered on 08/11/16 21:21 ; Admin Dose 10 MG; Start 08/08/16 at 21:00 Tiotropium [place] 1 inh 1 inh DAILY INH Last administered on 08/12/16 08:25; Admin Dose 1 INH; Start 08/08/16 at 11:00 Piperacillin Sod/ Tazobactam Sod (Zosyn 2.25gm/ 50ml (Pmx)) 50 ml @ 100 mls/hr Q8 IVPB Last administered on 08/13/16 23:30; Admin Dose 100 MLS/HR; Start at 14:00 Diltiazem HCl (Cardizem Cd) 180 mg DAILY PO Last administered on 08/12/16 08:26 ; Admin Dose 180 MG; Start 08/11/16 at 09:00 Miscellaneous Information Discontinue all previ... PROTOCOL ONCE XX ; Start 08/12 at 22:30; Stop 08/12/16 at 22:31; Status UNV Dextrose/Sodium Chloride (D5-1/2ns) 1,000 ml @ 50 mls/hr Q20H IV Last administered on 08/13/16 11:30; Admin Dose 50 MLS/HR; Start 08/13/16 at 11:30 Insulin Aspart (Novolog Insulin Pen) NOVOLOG *MILD* ALGORI... Q4 SC ; Start 08/13 at 21:00 Miscellaneous Information 1 ea NOTE XX ; Start 08/13/16 at 17:30 Glucose (Glutose) 15 gm Q15M PRN PO DECREASED GLUCOSE; Start 08/13/16 at 17:30 Glucose (Glutose) 22.5 gm Q15M PRN PO DECREASED GLUCOSE; Start 08/13/16 at 17:30 Dextrose (D50w Syringe) 25 ml Q15M PRN IV DECREASED GLUCOSE; Start 08/13/16 at 17:30 Dextrose (D50w Syringe) 50 ml Q15M PRN IV DECREASED GLUCOSE; Start 08/13/16 at 17:30 Glucagon (Glucagen) 1 mg Q15M PRN IM DECREASED GLUCOSE; Start 08/13/16 at 17:30 Glucose 15 gm 15 gm Q15M PRN BUCCAL DECREASED GLUCOSE; Start 08/13/16 at 17:30 Diltiazem HCl (Cardizem-D5W 125 Mg/125 ml Drip) 125 ml @ 5 mls/hr TITRATE IV Last administered on 08/13/16 23:39; Admin Dose 15 MLS/HR; Start 08/13/16 at 19: 00 DAT OLSON MD Aug 14, 2016 00:32
[2016-08-14] MEDS: INSULIN ASPART [NOVOLOG] 3 ML PEN SC SCH ×6 (01:00→20:28)
[2016-08-14 01:13] LABS: CALCIUM 6.1 mg/dl (8.4-10.2); CREATININE 2.48 mg/dl (0.44-1.00)
[2016-08-14 01:17] LABS: POTASSIUM 2.9 mmol/L (3.5-5.1)
[2016-08-14 02:07] LABS: CALCIUM 7.8 mg/dl (8.4-10.2); CREATININE 3.35 mg/dl (0.44-1.00); POTASSIUM 3.9 mmol/L (3.5-5.1)
[2016-08-14] MEDS: ALBUTEROL/IPRATROPIUM (NEB) 3 ML AMP HHN SCH ×4 (02:28→20:02)
--- NOTE | 2016-08-14 03:18 | RADRPT ---
PROCEDURE: Portable chest x-ray. CLINICAL INDICATION: Nasogastric tube placement. TECHNIQUE: Portable AP view of the chest. COMPARISON: 08/13/2016. FINDINGS: A nasogastric tube terminates in the stomach. A right central venous catheter terminates in the rig ht atrium. Moderate right and small left pleural effusions are unchanged. There is vascular congest ion. The cardiac silhouette is magnified. There are aortic calcifications. There is no pneumothora x. IMPRESSION: 1. Nasogastric tube tip in the stomach. 2. Moderate right and small left pleural effusions, unchanged. Underlying right lung edema, pneumon ia, or atelectasis is not excluded. 3. Vascular congestion. 4. Aortic atherosclerosis. RPTAT: HTAR .Kolton Romo MD, Date Time Electronically viewed and signed by .Kolton Romo MD, on 08/14/2016 03:18 .R/
[2016-08-14 05:12] LABS: ADD SCAN DIFF NO
[2016-08-14 05:18] LABS: ABNORMAL IP MESSAGE 1; BASOPHILS % 0.1 % (0.0-2.0); HEMATOCRIT 29.5 % (37.0-47.0); HEMOGLOBIN 9.3 g/dl (12.0-16.0); LYMPHOCYTES # 0.1 10^3/ul (0.8-2.9); LYMPHOCYTES % 0.4 % (15.0-51.0); MEAN CORPUSCULAR HGB CONC 31.5 g/dl (32.0-37.0); MEAN CORPUSCULAR VOLUME 91.9 fl (82.0-101.0); MEAN PLATELET VOLUME 10.3 fl (7.4-10.4); MONOCYTE # 0.4 10^3/ul (0.3-0.9); MONOCYTES % 1.9 % (0.0-11.0); NEUTROPHIL # 21.3 10^3/ul (1.6-7.5); NEUTROPHILS % 95.4 % (39.0-77.0); NUCLEATED RED BLOOD CELLS # 0.2 10^3/ul (0.0-0.0); PLATELET COUNT 190 10^3/UL (140-415); RED BLOOD COUNT 3.21 10^6/ul (4.20-5.40); RED CELL DISTRIBUTION WIDTH 15.1 % (11.5-14.5); WHITE BLOOD COUNT 22.3 10^3/ul (4.8-10.8)
[2016-08-14] MEDS: PIPER-TAZO 2.25 GM (PMX) 50 ML IVPB SCH ×3 (05:29→21:18)
[2016-08-14] MEDS: FUROSEMIDE 40 MG INJ IV SCH ×2 (05:30→17:33)
[2016-08-14 05:33] LABS: POTASSIUM 3.9 mmol/L (3.5-5.1)
[2016-08-14 05:35] LABS: CREATININE 3.74 mg/dl (0.44-1.00)
[2016-08-14 05:36] LABS: PHOSPHORUS 5.4 mg/dl (2.5-4.9)
[2016-08-14 05:37] LABS: CALCIUM 7.8 mg/dl (8.4-10.2)
--- NOTE | 2016-08-14 08:28 | PN ---
Date/Time of Note Date/Time of Note DATE: 08/14/16 TIME: 08:15 Assessment/Plan VTE Prophylaxis VTE Prophylaxis Intervention: SCD's Lines/Catheters [facility] Peripheral IV Urinary Cath still in place: No Assessment/Plan Assessment/Plan DO NOT INTUBATE -Acute encephalopathy, pending MRI of the head. Dr Wiggins is following in neurology consultation. Continue ICU monitoring. -Acute respiratory insufficiency secondary to pneumonia and COPD exacerbation. -Sepsis with bacteremia. Dr. Eric is following in infection disease consultation. Continue antibiotics per ID. - Right-sided pneumonia. - A-fib with RVR, continue Cardizem, patient is followed by Dr. Stuart in cardiology. - COPD exacerbation, continue breathing treatment. Dr. Natarajan is following in pulmonology consultation - End-stage renal disease stage V. Dr. Leon is following in nephrology consultation. Continue to hemodialysis via right femoral hemodialysis catheter. - Pulmonary edema. Continue diuresis. - Anemia of chronic kidney disease. Continue Epogen. - Diabetes mellitus type [address] Garcia is following an endocrinology consultation. Continue NPH. - Hypertension, continue Norvasc. -Left upper extremity AV fistula, non-matured -Status post right hemodialysis non-tunneled catheter placement by Dr. Manning on 08/03. S/p R IJ tunneled hemodialysis catheter placement. - HYPERPHOSPHATEMIA - per nephro Further treatment depends upon patient's clnical course. Total critical care time spent 40 mins. Plan of care katelyn Flores/staff Subjective 24 Hr Interval Summary Free Text/Dictation nad, on o2 4l NC, afebrile, on Cardizem drip on titration, sp MRI head, getting ABG katelyn maciel staff Constitutional: requiring IVF, requiring O2 Exam/Review of Systems Vital Signs Vitals Vital Signs Date Time Temp Pulse Resp B/P Pulse Ox O2 Delivery O2 Flow Rate FiO2 08/14/16 08:00 83 14 111/51 98 Nasal Cannula 08/14/16 07:30 98.0 4.0 08/14/16 04:49 33 Intake and Output 08/13/16 08/13/16 08/14/16 15:00 23:00 07:00 Intake Total 250 ml 1140 ml 585 ml Output Total 2200 ml Balance 250 ml -1060 ml 585 ml Exam Constitutional: non-verbal ENMT: nl external ears & nose Respiratory: diminished breath sounds Cardiovascular: nl pulses Gastrointestinal: non-tender, soft Musculoskeletal: muscle weakness Extremities: normal pulses 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: lethargic Skin: other Lymph: other Results Result Diagram: 08/14/16 0445 08/14/16 0445 Results 24 hrs Laboratory Tests Test 08/13/16 12:00 08/13/16 16:50 08/13/16 20:19 08/14/16 00:45 Bedside Glucose 88 150 139 Sodium Level 137 Potassium Level 2.9 #*L Chloride Level 101 Carbon Dioxide Level 20 L Anion Gap 19 H Blood Urea Nitrogen 40 #H Creatinine 2.48 #H Glucose Level 433 #*H Calcium Level 6.1 L Test 08/14/16 01:21 08/14/16 01:37 08/14/16 04:45 08/14/16 05:25 Bedside Glucose 132 149 Sodium Level 134 L 136 Potassium Level 3.9 3.9 Chloride Level 98 97 Carbon Dioxide Level 26 25 Anion Gap 14 18 H Blood Urea Nitrogen 52 H 55 H Creatinine 3.35 H 3.74 H Glucose Level 141 # 161 Calcium Level 7.8 L 7.8 L White Blood Count 22.3 H Red Blood Count 3.21 L Hemoglobin 9.3 L Hematocrit 29.5 L Mean Corpuscular Volume 91.9 Mean Corpuscular Hemoglobin 29.0 Mean Corpuscular Hemoglobin Concent 31.5 L Red Cell Distribution Width 15.1 H Platelet Count 190 Mean Platelet Volume 10.3 Neutrophils % 95.4 H Lymphocytes % 0.4 L Monocytes % 1.9 Eosinophils % 0.0 Basophils % 0.1 Nucleated Red Blood Cells % 1.0 H Neutrophils # 21.3 H Lymphocytes # 0.1 L Monocytes # 0.4 Eosinophils # 0.0 Basophils # 0.0 Nucleated Red Blood Cells # 0.2 H Phosphorus Level 5.4 H Magnesium Level 2.0 Test 08/14/16 06:21 Bedside Glucose 137 Medications Medications Current Medications Atorvastatin Calcium (Lipitor) 40 mg HS PO Last administered on 08/11/16 21:21 ; Admin Dose 40 MG; Start 08/01/16 at 21:00 Calcitriol (Rocaltrol) 0.25 mcg DAILY PO Last administered on 08/12/16 08:27; Admin Dose 0.25 MCG; Start 08/01/16 at 09:00 Calcium/Vitamin D (Oyster Shell/ Vit-D (500/200)) 1 tab BID PO Last administered on 08/12/16 08:26; Admin Dose 1 TAB; Start 08/01/16 at 09:00 Hydralazine HCl (Apresoline) 50 mg Q8 PO Last administered on 08/12/16 14:47; Admin Dose 50 MG; Start 08/01/16 at 06:00 Metoprolol Tartrate (Lopressor) 25 mg BID PO Last administered on 08/12/16 08: 26; Admin Dose 25 MG; Start 08/01/16 at 09:00 Paroxetine HCl (Paxil) 10 mg DAILY PO Last administered on 08/12/16 08:27; Admin Dose 10 MG; Start 08/01/16 at 09:00 Acetaminophen (Tylenol Tab) 650 mg Q4H PRN PO PAIN AND OR ELEVATED TEMP Last administered on 08/11/16 21:21; Admin Dose 650 MG; Start 08/01/16 at 00:30 Hydralazine HCl (Apresoline) 20 mg Q6H PRN IV ELEVATED BLOOD PRESSURE Last administered on 08/09/16 03:50; Admin Dose 20 MG; Start 08/01/16 at 00:30 Guaifenesin/ Dextromethorphan (Robitussin Dm Liquid Cup) 10 ml Q4H PRN PO COUGH Last administered on 08/10/16 09:37; Admin Dose 10 ML; Start 08/01/16 at 00:30 Heparin Sodium (Porcine) (Heparin (5000 Units/0.5 ml)) 5,000 unit BID SC Last administered on 08/04/16 08:55; Admin Dose 5,000 UNIT; Start 08/01/16 at 09:00 ; Status Future Hold Epoetin Braden (Epogen (Esrd)) 6,000 units MoWeFr@17 SC Last administered on 18:08; Admin Dose 6,000 UNITS; Start 08/02/16 at 17:00 Miscellaneous Information 1 ea NOTE XX ; Start 08/02/16 at 12:30 Linagliptin (Tradjenta) 5 mg DAILY PO Last administered on 08/12/16 08:27; Admin Dose 5 MG; Start 08/04/16 at 20:00 Salmeterol Xinafoate/ Fluticasone (Advair 250/50 Diskus) 1 inh BID INH Last administered on 08/12/16 08:24; Admin Dose 1 INH; Start 08/08/16 at 11:00 Montelukast Sodium (Singulair) 10 mg HS PO Last administered on 08/11/16 21:21 ; Admin Dose 10 MG; Start 08/08/16 at 21:00 Tiotropium [place] 1 inh 1 inh DAILY INH Last administered on 08/12/16 08:25; Admin Dose 1 INH; Start 08/08/16 at 11:00 Piperacillin Sod/ Tazobactam Sod (Zosyn 2.25gm/ 50ml (Pmx)) 50 ml @ 100 mls/hr Q8 IVPB Last administered on 08/14/16 05:29; Admin Dose 100 MLS/HR; Start at 14:00 Diltiazem HCl (Cardizem Cd) 180 mg DAILY PO Last administered on 08/12/16 08:26 ; Admin Dose 180 MG; Start 08/11/16 at 09:00 Miscellaneous Information Discontinue all previ... PROTOCOL ONCE XX ; Start 08/12 at 22:30; Stop 08/12/16 at 22:31; Status UNV Dextrose/Sodium Chloride (D5-1/2ns) 1,000 ml @ 50 mls/hr Q20H IV Last administered on 08/13/16 11:30; Admin Dose 50 MLS/HR; Start 08/13/16 at 11:30 Insulin Aspart (Novolog Insulin Pen) NOVOLOG *MILD* ALGORI... Q4 SC ; Start 08/13 at 21:00 Miscellaneous Information 1 ea NOTE XX ; Start 08/13/16 at 17:30 Glucose (Glutose) 15 gm Q15M PRN PO DECREASED GLUCOSE; Start 08/13/16 at 17:30 Glucose (Glutose) 22.5 gm Q15M PRN PO DECREASED GLUCOSE; Start 08/13/16 at 17:30 Dextrose (D50w Syringe) 25 ml Q15M PRN IV DECREASED GLUCOSE; Start 08/13/16 at 17:30 Dextrose (D50w Syringe) 50 ml Q15M PRN IV DECREASED GLUCOSE; Start 08/13/16 at 17:30 Glucagon (Glucagen) 1 mg Q15M PRN IM DECREASED GLUCOSE; Start 08/13/16 at 17:30 Glucose 15 gm 15 gm Q15M PRN BUCCAL DECREASED GLUCOSE; Start 08/13/16 at 17:30 Diltiazem HCl (Cardizem-D5W 125 Mg/125 ml Drip) 125 ml @ 5 mls/hr TITRATE IV Last administered on 08/13/16t 23:39; Admin Dose 15 MLS/HR; Start 08/13/16 at 19: 00 LALA ORO Aug 14, 2016 08:26
[2016-08-14] MEDS: DILTIAZEM (CD) 180 MG CAP PO SCH (09:00)
[2016-08-14] MEDS: SALMETEROL/FLUTICASONE 250/50 INHA INH SCH ×2 (09:00→20:17)
[2016-08-14] MEDS: CALCIUM/VITAMIN D (500/200) TAB PO SCH ×2 (09:01→20:18)
[2016-08-14] MEDS: CALCITRIOL 0.25 MCG CAP PO SCH (09:01)
[2016-08-14 09:08] LABS: AADO2 Arterial 99.6 mmHg (7.0-24.0); Allen Test ACCEPTAB; Arterial Base Excess 0.6 mmol/L (-3.0-3); Arterial COHb 0.3 % (0.0-3.0); Arterial Fraction of Oxyhgb 95.8 % (93.0-99.0); Arterial HCO3 24.9 mmol/L (22.0-26.0); Arterial MetHb 0.7 % (0.0-1.5); Arterial Total Hemglobin 9.3 g/dl (12.0-18.0); MODE NASAL CANNULA
[2016-08-14] MEDS: PAROXETINE 10 MG TAB PO SCH (09:24)
[2016-08-14] MEDS: METOPROLOL 25 MG TAB PO SCH ×2 (09:24→20:17)
[2016-08-14] MEDS: LINAGLIPTIN 5 MG TABLET PO SCH (09:25)
[2016-08-14] MEDS: DEXTROSE 5%-0.45% NACL 1,000 ML IV SCH (09:27)
[2016-08-14] MEDS: TIOTROPIUM 18 MCG CAPSULE INHA DEV INH SCH (09:28)
[2016-08-14] MEDS: DILTIAZEM-D5W 125MG/125ML DRIP 125 ML IV SCH (10:35)
[2016-08-14] MEDS ORDERED: LIDOCAINE 1% (MPF) 5 ML VIAL ONE (11:32)
--- NOTE | 2016-08-14 12:07 | CONS ---
Date/Time of Note Date/Time of Note DATE: 08/14/16 TIME: 12:07 Assessment/Plan Assessment/Plan Chief Complaint/Hosp Course ID PROGRESS NOTE CURRENT ABX=> Vanco IV + Zosyn 24H INTERVAL SUMMARY * Resting comfortably on supplemental O2 via NC, awake and responsive, overweight, appears weak yet stable, nods head "OK" * DIAGNOSTICS: Chest x-ray revealed right-sided consolidation, atelectasis with pleural effusions. PHYSICAL EXAMINATION: GENERAL: VSS, NAD, Afebrile HEENT: Unremarkable (+)NGT NECK: Supple, trachea midline. CHEST: Rise symmetrical, without dyspnea on observation HEART: Pulse RRR ABDOMEN: Soft EXTREMITIES: Warm ID ASSESSMENT 85 yo F admit with: 1. 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 Aute hypoxemic respiratory failure. 3. Pneumonia w/Bilateral pleural effusions. 4. History of recent femoral catheter removal. 5. End-stage renal disease, hemodialysis dependent. 6. History of pancreatic stent placement. 7. Diabetes. (-)MRSA Nares INVASIVES: PIV, R-Chest PermCath ABX ALLERGY: Iodine CURRENT ABX: => Vanco IV + Zosyn ID RECOMMENDATIONS 1. Continue current ABX 2. Observe over the weekend on ABX -> Reassess by ID team next week . Problems: Consultation Date/Type/Reason Admit Date/Time Jul 31, 2016 at 19:59 Initial Consult Date 08/13/16 Type of Consultation: ID Referring Provider: LALA ORO Exam/Review of Systems Vital Signs Vitals Vital Signs Date Time Temp Pulse Resp B/P Pulse Ox O2 Delivery O2 Flow Rate FiO2 08/14/16 10:45 80 18 122/54 99 08/14/16 09:08 4.0 08/14/16 09:00 Nasal Cannula 08/14/16 07:30 98.0 08/14/16 04:49 33 Intake and Output 08/13/16 08/13/16 08/14/16 15:00 23:00 07:00 Intake Total 250 ml 1140 ml 585 ml Output Total 2200 ml Balance 250 ml -1060 ml 585 ml Results Result Diagram: 08/14/16 0445 08/14/16 0445 Results 24 hrs Laboratory Tests Test 08/13/16 16:50 08/13/16 20:19 08/14/16 00:45 08/14/16 01:21 Bedside Glucose 150 139 132 Sodium Level 137 Potassium Level 2.9 #*L Chloride Level 101 Carbon Dioxide Level 20 L Anion Gap 19 H Blood Urea Nitrogen 40 #H Creatinine 2.48 #H Glucose Level 433 #*H Calcium Level 6.1 L Test 08/14/16 01:37 08/14/16 04:45 08/14/16 05:25 08/14/16 06:21 Sodium Level 134 L 136 Potassium Level 3.9 3.9 Chloride Level 98 97 Carbon Dioxide Level 26 25 Anion Gap 14 18 H Blood Urea Nitrogen 52 H 55 H Creatinine 3.35 H 3.74 H Glucose Level 141 # 161 Calcium Level 7.8 L 7.8 L White Blood Count 22.3 H Red Blood Count 3.21 L Hemoglobin 9.3 L Hematocrit 29.5 L Mean Corpuscular Volume 91.9 Mean Corpuscular Hemoglobin 29.0 Mean Corpuscular Hemoglobin Concent 31.5 L Red Cell Distribution Width 15.1 H Platelet Count 190 Mean Platelet Volume 10.3 Neutrophils % 95.4 H Lymphocytes % 0.4 L Monocytes % 1.9 Eosinophils % 0.0 Basophils % 0.1 Nucleated Red Blood Cells % 1.0 H Neutrophils # 21.3 H Lymphocytes # 0.1 L Monocytes # 0.4 Eosinophils # 0.0 Basophils # 0.0 Nucleated Red Blood Cells # 0.2 H Phosphorus Level 5.4 H Magnesium Level 2.0 Bedside Glucose 149 137 Test 08/14/16 07:00 08/14/16 09:22 Blood Gas Specimen Source Blood arterial Arterial Blood Date Drawn 08/14/2016 8:40:49 AM Arterial Blood pH (Temp corrected) 7.428 Arterial Blood pCO2 (Temp correct) 38.5 Arterial Blood pO2 (Temp corrected) 90.7 H Arterial Blood HCO3 24.9 Arterial Blood Base Excess 0.6 Arterial Blood Oxygen Saturation 96.8 Chris Test ACCEPTAB Arterial Blood Gas Puncture Site Right Radial Arterial Blood Carboxyhemoglobin 0.3 Arterial Blood Methemoglobin 0.7 Blood Gas A-a O2 Differential 99.6 H Oxyhemoglobin Percent 95.8 Total Hemoglobin 9.3 L Blood Gas Temperature 37.0 Blood Gas Modality NASAL CANNULA FiO2 33.0 Blood Gas Notified Whom DT Blood Gas Notified Time 08/14/2016 9:08:40 AM Bedside Glucose 146 Medications Medications Current Medications Atorvastatin Calcium (Lipitor) 40 mg HS PO Last administered on 08/11/16 21:21 ; Admin Dose 40 MG; Start 08/01/16 at 21:00 Calcitriol (Rocaltrol) 0.25 mcg DAILY PO Last administered on 08/14/16 09:01; Admin Dose 0.25 MCG; Start 08/01/16 at 09:00 Calcium/Vitamin D (Oyster Shell/ Vit-D (500/200)) 1 tab BID PO Last administered on 08/14/16 09:01; Admin Dose 1 TAB; Start 08/01/16 at 09:00 Hydralazine HCl (Apresoline) 50 mg Q8 PO Last administered on 08/12/16 14:47; Admin Dose 50 MG; Start 08/01/16 at 06:00 Metoprolol Tartrate (Lopressor) 25 mg BID PO Last administered on 08/14/16 09: 24; Admin Dose 25 MG; Start 08/01/16 at 09:00 Paroxetine HCl (Paxil) 10 mg DAILY PO Last administered on 08/14/16 09:24; Admin Dose 10 MG; Start 08/01/16 at 09:00 Acetaminophen (Tylenol Tab) 650 mg Q4H PRN PO PAIN AND OR ELEVATED TEMP Last administered on 08/11/16 21:21; Admin Dose 650 MG; Start 08/01/16 at 00:30 Hydralazine HCl (Apresoline) 20 mg Q6H PRN IV ELEVATED BLOOD PRESSURE Last administered on 08/09/16 03:50; Admin Dose 20 MG; Start 08/01/16 at 00:30 Guaifenesin/ Dextromethorphan (Robitussin Dm Liquid Cup) 10 ml Q4H PRN PO COUGH Last administered on 08/10/16 09:37; Admin Dose 10 ML; Start 08/01/16 at 00:30 Heparin Sodium (Porcine) (Heparin (5000 Units/0.5 ml)) 5,000 unit BID SC Last administered on 08/04/16 08:55; Admin Dose 5,000 UNIT; Start 08/01/16 at 09:00 ; Status Future Hold Epoetin Braden (Epogen (Esrd)) 6,000 units MoWeFr@17 SC Last administered on 18:08; Admin Dose 6,000 UNITS; Start 08/02/16 at 17:00 Miscellaneous Information 1 ea NOTE XX ; Start 08/02/16 at 12:30 Linagliptin (Tradjenta) 5 mg DAILY PO Last administered on 08/14/16 09:25; Admin Dose 5 MG; Start 08/04/16 at 20:00 Salmeterol Xinafoate/ Fluticasone (Advair 250/50 Diskus) 1 inh BID INH Last administered on 08/12/16 08:24; Admin Dose 1 INH; Start 08/08/16 at 11:00 Montelukast Sodium (Singulair) 10 mg HS PO Last administered on 08/11/16 21:21 ; Admin Dose 10 MG; Start 08/08/16 at 21:00 Tiotropium Perrin 1 inh 1 inh DAILY INH Last administered on 08/14/16 09:28; Admin Dose 1 INH; Start 08/08/16 at 11:00 Piperacillin Sod/ Tazobactam Sod (Zosyn 2.25gm/ 50ml (Pmx)) 50 ml @ 100 mls/hr Q8 IVPB Last administered on 08/14/16 05:29; Admin Dose 100 MLS/HR; Start at 14:00 Diltiazem HCl (Cardizem Cd) 180 mg DAILY PO Last administered on 08/12/16 08:26 ; Admin Dose 180 MG; Start 08/11/16 at 09:00 Miscellaneous Information Discontinue all previ... PROTOCOL ONCE XX ; Start 08/12 at 22:30; Stop 08/12/16 at 22:31; Status UNV Dextrose/Sodium Chloride (D5-1/2ns) 1,000 ml @ 50 mls/hr Q20H IV Last administered on 08/14/16 09:27; Admin Dose 50 MLS/HR; Start 08/13/16 at 11:30 Insulin Aspart (Novolog Insulin Pen) NOVOLOG *MILD* ALGORI... Q4 SC ; Start 08/13 at 21:00 Miscellaneous Information 1 ea NOTE XX ; Start 08/13/16 at 17:30 Glucose (Glutose) 15 gm Q15M PRN PO DECREASED GLUCOSE; Start 08/13/16 at 17:30 Glucose (Glutose) 22.5 gm Q15M PRN PO DECREASED GLUCOSE; Start 08/13/16 at 17:30 Dextrose (D50w Syringe) 25 ml Q15M PRN IV DECREASED GLUCOSE; Start 08/13/16 at 17:30 Dextrose (D50w Syringe) 50 ml Q15M PRN IV DECREASED GLUCOSE; Start 08/13/16 at 17:30 Glucagon (Glucagen) 1 mg Q15M PRN IM DECREASED GLUCOSE; Start 08/13/16 at 17:30 Glucose 15 gm 15 gm Q15M PRN BUCCAL DECREASED GLUCOSE; Start 08/13/16 at 17:30 Diltiazem HCl (Cardizem-D5W 125 Mg/125 ml Drip) 125 ml @ 5 mls/hr TITRATE IV Last administered on 08/14/16t 10:35; Admin Dose 5 MLS/HR; Start 08/13/16 at 19:00 EBONI WEINBERG NP Aug 14, 2016 12:07
--- NOTE | 2016-08-14 12:19 | RADRPT ---
PROCEDURE: XR Chest. CLINICAL INDICATION: Shortness of breath. TECHNIQUE: Single frontal view. COMPARISON: 08/14/2016. FINDINGS: The right internal jugular vein tunneled dialysis catheter and nasogastric tube remain in satisfacto ry position. There is a small right pleural effusion, smaller than seen previously. There is no le ft pleural effusion. The heart is enlarged. There is calcification in the aorta consistent with atherosclerosis. There is improved aeration of the right lung with mild right basilar atelectasis. There is left bas ilar atelectasis, unchanged. There is no pneumothorax. IMPRESSION: 1. No pneumothorax following right thoracentesis. 2. Improved aeration of the right lung and smaller right pleural effusion. RPTAT: QQ .Salazar Cruz MD, Date Time Electronically viewed and signed by .Salazar Cruz MD, MD on 08/14/2016 12:18 .R/
--- NOTE | 2016-08-14 12:22 | RADRPT ---
PROCEDURE: US guided right thoracentesis. CLINICAL INDICATION: Shortness of breath. Right pleural effusion. TECHNIQUE: Prior to the procedure, informed consent was obtained. The risks, benefits, and alternatives were e xplained to the patient or the patient's family, including but not limited to bleeding, infection, p ain, visceral or vascular damage, shock, pneumothorax, chest tube placement, air embolism, and . The patient or the patient's family understood the risks and the alternatives and wished to proce ed with the study. Informed written consent was obtained. A procedural pause was performed. The patient's name, date of , and procedure to be performed were verified. Ultrasound of the right hemithorax was performed in the axial and sagittal planes. A right pleural e ffusion is noted. Utilizing ultrasound guidance, optimal location for entry to the pleural cavity wa s ascertained. The overlying skin was prepped and draped in the usual sterile fashion. Approximate ly 10 ml of 1% Xylocaine was injected locally for pain control. Using ultrasound guidance, a 5-Fren Yueh catheter was introduced into the right pleural space without difficulty. Fluid was aspirated . COMPARISON: None. FINDINGS: Initial ultrasound demonstrates fluid in the right pleural space. Approximately 0.700 liters of ser ous fluid was aspirated and sent to the laboratory. IMPRESSION: 1. Satisfactory ultrasound-guided right thoracentesis. RPTAT: QQ .Salazar Cruz MD, Date Time Electronically viewed and signed by .Salazar Cruz MD, on 08/14/2016 12:21 .R/
[2016-08-14 14:07] LABS: FLUID TOTAL PROTEIN 3.6 g/dl; FLUID TYPE THORACENTESIS FLUID
[2016-08-14 14:08] LABS: FLUID GLUCOSE < 20 mg/dl; FLUID TYPE THORACENTESIS FLUID
[2016-08-14 14:25] LABS: FLUID LYMPHOCYTES 2 %; FLUID MONOCYTES 11 %
[2016-08-14 14:26] LABS: FLUID APPEARANCE TURBID; FLUID TYPE THORACENTHESIS
--- NOTE | 2016-08-14 14:26 | CONS ---
Date/Time of Note Date/Time of Note DATE: 08/14/16 TIME: 14:23 Consult Date/Type/Reason Admit Date/Time Jul 31, 2016 at 19:59 Initial Consult Date 08/13/16 Type of Consultation: Pulm Ordering Provider: LALA ORO Subjective s/p right thoracentesis 700 ml. No events. Objective Vital Signs Date Time Temp Pulse Resp B/P Pulse Ox O2 Delivery O2 Flow Rate FiO2 08/14/16 13:30 81 22 108/52 96 08/14/16 12:00 98.6 08/14/16 09:08 4.0 08/14/16 09:00 Nasal Cannula 08/14/16 04:49 33 Intake and Output 08/13/16 08/13/16 08/14/16 14:59 22:59 06:59 Intake Total 250 ml 1075 ml 650 ml Output Total 2200 ml Balance 250 ml -1125 ml 650 ml Exam NECK: Supple. No JVD or lymphadenopathy. CARDIAC EXAM: S1, S2. 2/6 systolic ejection murmur CHEST: Diminished air entry bilaterally right greater than left ABDOMEN: Soft, nontender. No guarding or rebound. EXTREMITIES: No cyanosis, clubbing edema +2 Results/Medications Result Diagram: 08/14/16 0445 08/14/16 0445 Results 24 hrs Laboratory Tests Test 08/13/16 16:50 08/13/16 20:19 08/14/16 00:45 08/14/16 01:21 Bedside Glucose 150 139 132 Sodium Level 137 Potassium Level 2.9 #*L Chloride Level 101 Carbon Dioxide Level 20 L Anion Gap 19 H Blood Urea Nitrogen 40 #H Creatinine 2.48 #H Glucose Level 433 #*H Calcium Level 6.1 L Test 08/14/16 01:37 08/14/16 04:45 08/14/16 05:25 08/14/16 06:21 Sodium Level 134 L 136 Potassium Level 3.9 3.9 Chloride Level 98 97 Carbon Dioxide Level 26 25 Anion Gap 14 18 H Blood Urea Nitrogen 52 H 55 H Creatinine 3.35 H 3.74 H Glucose Level 141 # 161 Calcium Level 7.8 L 7.8 L White Blood Count 22.3 H Red Blood Count 3.21 L Hemoglobin 9.3 L Hematocrit 29.5 L Mean Corpuscular Volume 91.9 Mean Corpuscular Hemoglobin 29.0 Mean Corpuscular Hemoglobin Concent 31.5 L Red Cell Distribution Width 15.1 H Platelet Count 190 Mean Platelet Volume 10.3 Neutrophils % 95.4 H Lymphocytes % 0.4 L Monocytes % 1.9 Eosinophils % 0.0 Basophils % 0.1 Nucleated Red Blood Cells % 1.0 H Neutrophils # 21.3 H Lymphocytes # 0.1 L Monocytes # 0.4 Eosinophils # 0.0 Basophils # 0.0 Nucleated Red Blood Cells # 0.2 H Phosphorus Level 5.4 H Magnesium Level 2.0 Bedside Glucose 149 137 Test 08/14/16 07:00 08/14/16 09:22 08/14/16 11:10 08/14/16 13:27 Blood Gas Specimen Source Blood arterial Arterial Blood Date Drawn 08/14/2016 8:40:49 AM Arterial Blood pH (Temp corrected) 7.428 Arterial Blood pCO2 (Temp correct) 38.5 Arterial Blood pO2 (Temp corrected) 90.7 H Arterial Blood HCO3 24.9 Arterial Blood Base Excess 0.6 Arterial Blood Oxygen Saturation 96.8 Chris Test ACCEPTAB Arterial Blood Gas Puncture Site Right Radial Arterial Blood Carboxyhemoglobin 0.3 Arterial Blood Methemoglobin 0.7 Blood Gas A-a O2 Differential 99.6 H Oxyhemoglobin Percent 95.8 Total Hemoglobin 9.3 L Blood Gas Temperature 37.0 Blood Gas Modality NASAL CANNULA FiO2 33.0 Blood Gas Notified Whom DT Blood Gas Notified Time 08/14/2016 9:08:40 AM Bedside Glucose 146 136 Body Fluid Type THORACENTESIS FLUID Body Fluid Glucose < 20 Body Fluid Total Protein 3.6 Body Fluid Lactate Dehydrogenase Medications Current Medications Atorvastatin Calcium (Lipitor) 40 mg HS PO Last administered on 08/11/16 21:21 ; Admin Dose 40 MG; Start 08/01/16 at 21:00 Calcitriol (Rocaltrol) 0.25 mcg DAILY PO Last administered on 08/14/16 09:01; Admin Dose 0.25 MCG; Start 08/01/16 at 09:00 Calcium/Vitamin D (Oyster Shell/ Vit-D (500/200)) 1 tab BID PO Last administered on 08/14/16 09:01; Admin Dose 1 TAB; Start 08/01/16 at 09:00 Hydralazine HCl (Apresoline) 50 mg Q8 PO Last administered on 08/14/16 13:28; Admin Dose 50 MG; Start 08/01/16 at 06:00 Metoprolol Tartrate (Lopressor) 25 mg BID PO Last administered on 08/14/16 09: 24; Admin Dose 25 MG; Start 08/01/16 at 09:00 Paroxetine HCl (Paxil) 10 mg DAILY PO Last administered on 08/14/16 09:24; Admin Dose 10 MG; Start 08/01/16 at 09:00 Acetaminophen (Tylenol Tab) 650 mg Q4H PRN PO PAIN AND OR ELEVATED TEMP Last administered on 08/11/16 21:21; Admin Dose 650 MG; Start 08/01/16 at 00:30 Hydralazine HCl (Apresoline) 20 mg Q6H PRN IV ELEVATED BLOOD PRESSURE Last administered on 08/09/16 03:50; Admin Dose 20 MG; Start 08/01/16 at 00:30 Guaifenesin/ Dextromethorphan (Robitussin Dm Liquid Cup) 10 ml Q4H PRN PO COUGH Last administered on 08/10/16 09:37; Admin Dose 10 ML; Start 08/01/16 at 00:30 Heparin Sodium (Porcine) (Heparin (5000 Units/0.5 ml)) 5,000 unit BID SC Last administered on 08/04/16 08:55; Admin Dose 5,000 UNIT; Start 08/01/16 at 09:00 ; Status Future Hold Epoetin Braden (Epogen (Esrd)) 6,000 units MoWeFr@17 SC Last administered on 18:08; Admin Dose 6,000 UNITS; Start 08/02/16 at 17:00 Miscellaneous Information 1 ea NOTE XX ; Start 08/02/16 at 12:30 Linagliptin (Tradjenta) 5 mg DAILY PO Last administered on 08/14/16 09:25; Admin Dose 5 MG; Start 08/04/16 at 20:00 Salmeterol Xinafoate/ Fluticasone (Advair 250/50 Diskus) 1 inh BID INH Last administered on 08/12/16 08:24; Admin Dose 1 INH; Start 08/08/16 at 11:00 Montelukast Sodium (Singulair) 10 mg HS PO Last administered on 08/11/16 21:21 ; Admin Dose 10 MG; Start 08/08/16 at 21:00 Tiotropium Laie 1 inh 1 inh DAILY INH Last administered on 08/14/16 09:28; Admin Dose 1 INH; Start 08/08/16 at 11:00 Piperacillin Sod/ Tazobactam Sod (Zosyn 2.25gm/ 50ml (Pmx)) 50 ml @ 100 mls/hr Q8 IVPB Last administered on 08/14/16 13:28; Admin Dose 100 MLS/HR; Start at 14:00 Diltiazem HCl (Cardizem Cd) 180 mg DAILY PO Last administered on 08/12/16 08:26 ; Admin Dose 180 MG; Start 08/11/16 at 09:00 Miscellaneous Information Discontinue all previ... PROTOCOL ONCE XX ; Start 08/12 at 22:30; Stop 08/12/16 at 22:31; Status UNV Dextrose/Sodium Chloride (D5-1/2ns) 1,000 ml @ 50 mls/hr Q20H IV Last administered on 08/14/16 09:27; Admin Dose 50 MLS/HR; Start 08/13/16 at 11:30 Insulin Aspart (Novolog Insulin Pen) NOVOLOG *MILD* ALGORI... Q4 SC ; Start 08/13 at 21:00 Miscellaneous Information 1 ea NOTE XX ; Start 08/13/16 at 17:30 Glucose (Glutose) 15 gm Q15M PRN PO DECREASED GLUCOSE; Start 08/13/16 at 17:30 Glucose (Glutose) 22.5 gm Q15M PRN PO DECREASED GLUCOSE; Start 08/13/16 at 17:30 Dextrose (D50w Syringe) 25 ml Q15M PRN IV DECREASED GLUCOSE; Start 08/13/16 at 17:30 Dextrose (D50w Syringe) 50 ml Q15M PRN IV DECREASED GLUCOSE; Start 08/13/16 at 17:30 Glucagon (Glucagen) 1 mg Q15M PRN IM DECREASED GLUCOSE; Start 08/13/16 at 17:30 Glucose 15 gm 15 gm Q15M PRN BUCCAL DECREASED GLUCOSE; Start 08/13/16 at 17:30 Diltiazem HCl (Cardizem-D5W 125 Mg/125 ml Drip) 125 ml @ 5 mls/hr TITRATE IV Last administered on 08/14/16t 10:35; Admin Dose 5 MLS/HR; Start 08/13/16 at 19:00 Assessment/Plan Additional Assessment/Plan IMPRESSION: 1. Hypoxemic respiratory failure possibly secondary to aspiration pneumonia versus healthcare associated pneumonia. Pleural effusion with compressive atelectasis 2. Severe sepsis 3. Altered mental status likely toxic metabolic encephalopathy 4. End-stage renal failure on hemodialysis 5. Right Effusion s/p tap Plan 1. F/U pleural fluid studies 2. Incentive spirometry if tolerated 3. Chest PT 4. Aspiration precautions ROMANA RUBIO MD Aug 14, 2016 14:26
[2016-08-14 14:28] LABS: FLUID RBC EST 1+; FLUID WBC'S 101710 /cmm
[2016-08-14 14:29] LABS: FLUID NEUTROPHILS 86 %
--- NOTE | 2016-08-14 15:40 | CONS ---
Date/Time of Note Date/Time of Note DATE: 08/14/16 TIME: 15:35 Assessment/Plan Assessment/Plan Additional Assessment/Plan Acute exacerbation of CHF Pleural effusion s/p thoracentesis ESRD on HD Hypertension Diabetes Dyslipidemia Anemia Leucocytosis hemodynamically stable had thoracentesis done removed 700cc from right pleural space Continue HD as scheduled Contnue Metoprolol Continue Trajenta Continue Lipitor Consultation Date/Type/Reason Admit Date/Time Jul 31, 2016 at 19:59 Constitutional: requiring IVF, requiring O2 Eyes: no complaints ENT: no complaints Respiratory: no complaints Cardiovascular: no complaints Gastrointestinal: no complaints Genitourinary: no complaints Musculoskeletal: no complaints Skin: no complaints Neurologic: other (Right arm twitching) Endocrine: no complaints Lymphatic: no complaints Psychological: nl mood/affect Past Medical History Medical History: congestive heart failure, coronary artery disease, diabetes, high cholesterol, hypertension, renal disease, other (depression, COPD) Past Surgical History Past Surgical Hx: other (pancreas stent placement, fistula placement) Social History Alcohol Use: rarely Smoking Status: Former smoker (1 ppd x 25 y) Drug Use: none Exam/Review of Systems Vital Signs Vitals Vital Signs Date Time Temp Pulse Resp B/P Pulse Ox O2 Delivery O2 Flow Rate FiO2 08/14/16 13:30 81 22 108/52 96 08/14/16 12:00 98.6 08/14/16 09:08 4.0 08/14/16 09:00 Nasal Cannula 08/14/16 04:49 33 Intake and Output 08/13/16 08/13/16 08/14/16 15:00 23:00 07:00 Intake Total 250 ml 1140 ml 640 ml Output Total 2200 ml Balance 250 ml -1060 ml 640 ml Exam Constitutional: alert Head: atraumatic, normocephalic Respiratory: diminished breath sounds Cardiovascular: other (no m/r/g), regular rate and rhythm Gastrointestinal: nl liver, spleen, non-tender, soft Extremities: normal pulses 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: INCOMING INSPECTOR II-XII intact Results Result Diagram: 08/14/16 0445 08/14/16 0445 Results 24 hrs Laboratory Tests Test 08/13/16 16:50 08/13/16 20:19 08/14/16 00:45 08/14/16 01:21 Bedside Glucose 150 139 132 Sodium Level 137 Potassium Level 2.9 #*L Chloride Level 101 Carbon Dioxide Level 20 L Anion Gap 19 H Blood Urea Nitrogen 40 #H Creatinine 2.48 #H Glucose Level 433 #*H Calcium Level 6.1 L Test 08/14/16 01:37 08/14/16 04:45 08/14/16 05:25 08/14/16 06:21 Sodium Level 134 L 136 Potassium Level 3.9 3.9 Chloride Level 98 97 Carbon Dioxide Level 26 25 Anion Gap 14 18 H Blood Urea Nitrogen 52 H 55 H Creatinine 3.35 H 3.74 H Glucose Level 141 # 161 Calcium Level 7.8 L 7.8 L White Blood Count 22.3 H Red Blood Count 3.21 L Hemoglobin 9.3 L Hematocrit 29.5 L Mean Corpuscular Volume 91.9 Mean Corpuscular Hemoglobin 29.0 Mean Corpuscular Hemoglobin Concent 31.5 L Red Cell Distribution Width 15.1 H Platelet Count 190 Mean Platelet Volume 10.3 Neutrophils % 95.4 H Lymphocytes % 0.4 L Monocytes % 1.9 Eosinophils % 0.0 Basophils % 0.1 Nucleated Red Blood Cells % 1.0 H Neutrophils # 21.3 H Lymphocytes # 0.1 L Monocytes # 0.4 Eosinophils # 0.0 Basophils # 0.0 Nucleated Red Blood Cells # 0.2 H Phosphorus Level 5.4 H Magnesium Level 2.0 Bedside Glucose 149 137 Test 08/14/16 07:00 08/14/16 09:22 08/14/16 11:10 08/14/16 13:27 Blood Gas Specimen Source Blood arterial Arterial Blood Date Drawn 08/14/2016 8:40:49 AM Arterial Blood pH (Temp corrected) 7.428 Arterial Blood pCO2 (Temp correct) 38.5 Arterial Blood pO2 (Temp corrected) 90.7 H Arterial Blood HCO3 24.9 Arterial Blood Base Excess 0.6 Arterial Blood Oxygen Saturation 96.8 Chris Test ACCEPTAB Arterial Blood Gas Puncture Site Right Radial Arterial Blood Carboxyhemoglobin 0.3 Arterial Blood Methemoglobin 0.7 Blood Gas A-a O2 Differential 99.6 H Oxyhemoglobin Percent 95.8 Total Hemoglobin 9.3 L Blood Gas Temperature 37.0 Blood Gas Modality NASAL CANNULA FiO2 33.0 Blood Gas Notified Whom DT Blood Gas Notified Time 08/14/2016 9:08:40 AM Bedside Glucose 146 136 Body Fluid Type THORACENTESIS FLUID Body Fluid Volume 720.0 Body Fluid Color YELLOW Body Fluid Appearance TURBID Body Fluid WBC 067540 Body Fluid RBC 1+ Body Fluid Neutrophils % 86 Body Fluid Lymphocytes (%) 2 Body Fluid Monocytes % 11 Body Fluid Other Cells (%) 1 Body Fluid Glucose < 20 Body Fluid Total Protein 3.6 Body Fluid Lactate Dehydrogenase Medications Medications Current Medications Atorvastatin Calcium (Lipitor) 40 mg HS PO Last administered on 08/11/16 21:21 ; Admin Dose 40 MG; Start 08/01/16 at 21:00 Calcitriol (Rocaltrol) 0.25 mcg DAILY PO Last administered on 08/14/16 09:01; Admin Dose 0.25 MCG; Start 08/01/16 at 09:00 Calcium/Vitamin D (Oyster Shell/ Vit-D (500/200)) 1 tab BID PO Last administered on 08/14/16 09:01; Admin Dose 1 TAB; Start 08/01/16 at 09:00 Hydralazine HCl (Apresoline) 50 mg Q8 PO Last administered on 08/14/16 13:28; Admin Dose 50 MG; Start 08/01/16 at 06:00 Metoprolol Tartrate (Lopressor) 25 mg BID PO Last administered on 08/14/16 09: 24; Admin Dose 25 MG; Start 08/01/16 at 09:00 Paroxetine HCl (Paxil) 10 mg DAILY PO Last administered on 08/14/16 09:24; Admin Dose 10 MG; Start 08/01/16 at 09:00 Acetaminophen (Tylenol Tab) 650 mg Q4H PRN PO PAIN AND OR ELEVATED TEMP Last administered on 08/11/16 21:21; Admin Dose 650 MG; Start 08/01/16 at 00:30 Hydralazine HCl (Apresoline) 20 mg Q6H PRN IV ELEVATED BLOOD PRESSURE Last administered on 08/09/16 03:50; Admin Dose 20 MG; Start 08/01/16 at 00:30 Guaifenesin/ Dextromethorphan (Robitussin Dm Liquid Cup) 10 ml Q4H PRN PO COUGH Last administered on 08/10/16 09:37; Admin Dose 10 ML; Start 08/01/16 at 00:30 Heparin Sodium (Porcine) (Heparin (5000 Units/0.5 ml)) 5,000 unit BID SC Last administered on 08/04/16 08:55; Admin Dose 5,000 UNIT; Start 08/01/16 at 09:00 ; Status Future Hold Epoetin Braden (Epogen (Esrd)) 6,000 units MoWeFr@17 SC Last administered on 18:08; Admin Dose 6,000 UNITS; Start 08/02/16 at 17:00 Miscellaneous Information 1 ea NOTE XX ; Start 08/02/16 at 12:30 Linagliptin (Tradjenta) 5 mg DAILY PO Last administered on 08/14/16 09:25; Admin Dose 5 MG; Start 08/04/16 at 20:00 Salmeterol Xinafoate/ Fluticasone (Advair 250/50 Diskus) 1 inh BID INH Last administered on 08/12/16 08:24; Admin Dose 1 INH; Start 08/08/16 at 11:00 Montelukast Sodium (Singulair) 10 mg HS PO Last administered on 08/11/16 21:21 ; Admin Dose 10 MG; Start 08/08/16 at 21:00 Tiotropium [place] 1 inh 1 inh DAILY INH Last administered on 08/14/16 09:28; Admin Dose 1 INH; Start 08/08/16 at 11:00 Piperacillin Sod/ Tazobactam Sod (Zosyn 2.25gm/ 50ml (Pmx)) 50 ml @ 100 mls/hr Q8 IVPB Last administered on 08/14/16 13:28; Admin Dose 100 MLS/HR; Start at 14:00 Diltiazem HCl (Cardizem Cd) 180 mg DAILY PO Last administered on 08/12/16 08:26 ; Admin Dose 180 MG; Start 08/11/16 at 09:00 Miscellaneous Information Discontinue all previ... PROTOCOL ONCE XX ; Start 08/12 at 22:30; Stop 08/12/16 at 22:31; Status UNV Dextrose/Sodium Chloride (D5-1/2ns) 1,000 ml @ 50 mls/hr Q20H IV Last administered on 08/14/16 09:27; Admin Dose 50 MLS/HR; Start 08/13/16 at 11:30 Insulin Aspart (Novolog Insulin Pen) NOVOLOG *MILD* ALGORI... Q4 SC ; Start 08/13 at 21:00 Miscellaneous Information 1 ea NOTE XX ; Start 08/13/16 at 17:30 Glucose (Glutose) 15 gm Q15M PRN PO DECREASED GLUCOSE; Start 08/13/16 at 17:30 Glucose (Glutose) 22.5 gm Q15M PRN PO DECREASED GLUCOSE; Start 08/13/16 at 17:30 Dextrose (D50w Syringe) 25 ml Q15M PRN IV DECREASED GLUCOSE; Start 08/13/16 at 17:30 Dextrose (D50w Syringe) 50 ml Q15M PRN IV DECREASED GLUCOSE; Start 08/13/16 at 17:30 Glucagon (Glucagen) 1 mg Q15M PRN IM DECREASED GLUCOSE; Start 08/13/16 at 17:30 Glucose 15 gm 15 gm Q15M PRN BUCCAL DECREASED GLUCOSE; Start 08/13/16 at 17:30 Diltiazem HCl (Cardizem-D5W 125 Mg/125 ml Drip) 125 ml @ 5 mls/hr TITRATE IV Last administered on 08/14/16t 10:35; Admin Dose 5 MLS/HR; Start 08/13/16 at 19:00 FRAN LÓPEZ M.D. Aug 14, 2016 15:40
--- NOTE | 2016-08-14 16:08 | CONS ---
Date/Time of Note Date/Time of Note DATE: 08/14/16 TIME: 16:05 Consult Date/Type/Reason Admit Date/Time Jul 31, 2016 at 19:59 Initial Consult Date 08/13/16 Type of Consultation: neurology Reason for Consultation evaluate for encephalopathy ro seizures Ordering Provider: LALA ORO Subjective pleural effusion s/p thoracocentesis this morning remains minimally verbal, encephalopathic Objective Vital Signs Date Time Temp Pulse Resp B/P Pulse Ox O2 Delivery O2 Flow Rate FiO2 08/14/16 15:36 85 24 96 5.0 08/14/16 13:30 108/52 08/14/16 12:00 98.6 08/14/16 09:00 Nasal Cannula 08/14/16 04:49 33 Intake and Output 08/13/16 08/13/16 08/14/16 15:00 23:00 07:00 Intake Total 250 ml 1140 ml 640 ml Output Total 2200 ml Balance 250 ml -1060 ml 640 ml Exam arousable to verbal stimuli opens her eyes currently on bipap follows only 1 step simple commands CN: ANGELI, gaze in all directions, no nystagmus no obvious facial asymmetry Motor: lifts both UE anti-gravity with high frequency intention tremor that is persistent upon movement Coordination: bilateral ataxia with high frequency tremor worse on right arm compared to left she also begins to have tremors in her LE upon movement Reflexes symmetric throughout toes downgoing Results/Medications Result Diagram: 08/14/16 0445 08/14/16 0445 Results 24 hrs Laboratory Tests Test 08/13/16 16:50 08/13/16 20:19 08/14/16 00:45 08/14/16 01:21 Bedside Glucose 150 139 132 Sodium Level 137 Potassium Level 2.9 #*L Chloride Level 101 Carbon Dioxide Level 20 L Anion Gap 19 H Blood Urea Nitrogen 40 #H Creatinine 2.48 #H Glucose Level 433 #*H Calcium Level 6.1 L Test 08/14/16 01:37 08/14/16 04:45 08/14/16 05:25 08/14/16 06:21 Sodium Level 134 L 136 Potassium Level 3.9 3.9 Chloride Level 98 97 Carbon Dioxide Level 26 25 Anion Gap 14 18 H Blood Urea Nitrogen 52 H 55 H Creatinine 3.35 H 3.74 H Glucose Level 141 # 161 Calcium Level 7.8 L 7.8 L White Blood Count 22.3 H Red Blood Count 3.21 L Hemoglobin 9.3 L Hematocrit 29.5 L Mean Corpuscular Volume 91.9 Mean Corpuscular Hemoglobin 29.0 Mean Corpuscular Hemoglobin Concent 31.5 L Red Cell Distribution Width 15.1 H Platelet Count 190 Mean Platelet Volume 10.3 Neutrophils % 95.4 H Lymphocytes % 0.4 L Monocytes % 1.9 Eosinophils % 0.0 Basophils % 0.1 Nucleated Red Blood Cells % 1.0 H Neutrophils # 21.3 H Lymphocytes # 0.1 L Monocytes # 0.4 Eosinophils # 0.0 Basophils # 0.0 Nucleated Red Blood Cells # 0.2 H Phosphorus Level 5.4 H Magnesium Level 2.0 Bedside Glucose 149 137 Test 08/14/16 07:00 08/14/16 09:22 08/14/16 11:10 08/14/16 13:27 Blood Gas Specimen Source Blood arterial Arterial Blood Date Drawn 08/14/2016 8:40:49 AM Arterial Blood pH (Temp corrected) 7.428 Arterial Blood pCO2 (Temp correct) 38.5 Arterial Blood pO2 (Temp corrected) 90.7 H Arterial Blood HCO3 24.9 Arterial Blood Base Excess 0.6 Arterial Blood Oxygen Saturation 96.8 Chris Test ACCEPTAB Arterial Blood Gas Puncture Site Right Radial Arterial Blood Carboxyhemoglobin 0.3 Arterial Blood Methemoglobin 0.7 Blood Gas A-a O2 Differential 99.6 H Oxyhemoglobin Percent 95.8 Total Hemoglobin 9.3 L Blood Gas Temperature 37.0 Blood Gas Modality NASAL CANNULA FiO2 33.0 Blood Gas Notified Whom DT Blood Gas Notified Time 08/14/2016 9:08:40 AM Bedside Glucose 146 136 Body Fluid Type THORACENTESIS FLUID Body Fluid Volume 720.0 Body Fluid Color YELLOW Body Fluid Appearance TURBID Body Fluid WBC 022657 Body Fluid RBC 1+ Body Fluid Neutrophils % 86 Body Fluid Lymphocytes (%) 2 Body Fluid Monocytes % 11 Body Fluid Other Cells (%) 1 Body Fluid Glucose < 20 Body Fluid Total Protein 3.6 Body Fluid Lactate Dehydrogenase Medications Current Medications Atorvastatin Calcium (Lipitor) 40 mg HS PO Last administered on 08/11/16 21:21 ; Admin Dose 40 MG; Start 08/01/16 at 21:00 Calcitriol (Rocaltrol) 0.25 mcg DAILY PO Last administered on 08/14/16 09:01; Admin Dose 0.25 MCG; Start 08/01/16 at 09:00 Calcium/Vitamin D (Oyster Shell/ Vit-D (500/200)) 1 tab BID PO Last administered on 08/14/16 09:01; Admin Dose 1 TAB; Start 08/01/16 at 09:00 Hydralazine HCl (Apresoline) 50 mg Q8 PO Last administered on 08/14/16 13:28; Admin Dose 50 MG; Start 08/01/16 at 06:00 Metoprolol Tartrate (Lopressor) 25 mg BID PO Last administered on 08/14/16 09: 24; Admin Dose 25 MG; Start 08/01/16 at 09:00 Paroxetine HCl (Paxil) 10 mg DAILY PO Last administered on 08/14/16 09:24; Admin Dose 10 MG; Start 08/01/16 at 09:00 Acetaminophen (Tylenol Tab) 650 mg Q4H PRN PO PAIN AND OR ELEVATED TEMP Last administered on 08/11/16 21:21; Admin Dose 650 MG; Start 08/01/16 at 00:30 Hydralazine HCl (Apresoline) 20 mg Q6H PRN IV ELEVATED BLOOD PRESSURE Last administered on 08/09/16 03:50; Admin Dose 20 MG; Start 08/01/16 at 00:30 Guaifenesin/ Dextromethorphan (Robitussin Dm Liquid Cup) 10 ml Q4H PRN PO COUGH Last administered on 08/10/16 09:37; Admin Dose 10 ML; Start 08/01/16 at 00:30 Heparin Sodium (Porcine) (Heparin (5000 Units/0.5 ml)) 5,000 unit BID SC Last administered on 08/04/16 08:55; Admin Dose 5,000 UNIT; Start 08/01/16 at 09:00 ; Status Future Hold Epoetin [place]baden (Epogen (Esrd)) 6,000 units MoWeFr@17 SC Last administered on 18:08; Admin Dose 6,000 UNITS; Start 08/02/16 at 17:00 Miscellaneous Information 1 ea NOTE XX ; Start 08/02/16 at 12:30 Linagliptin (Tradjenta) 5 mg DAILY PO Last administered on 08/14/16 09:25; Admin Dose 5 MG; Start 08/04/16 at 20:00 Salmeterol Xinafoate/ Fluticasone (Advair 250/50 Diskus) 1 inh BID INH Last administered on 08/12/16 08:24; Admin Dose 1 INH; Start 08/08/16 at 11:00 Montelukast Sodium (Singulair) 10 mg HS PO Last administered on 08/11/16 21:21 ; Admin Dose 10 MG; Start 08/08/16 at 21:00 Tiotropium [place] 1 inh 1 inh DAILY INH Last administered on 08/14/16 09:28; Admin Dose 1 INH; Start 08/08/16 at 11:00 Piperacillin Sod/ Tazobactam Sod (Zosyn 2.25gm/ 50ml (Pmx)) 50 ml @ 100 mls/hr Q8 IVPB Last administered on 08/14/16 13:28; Admin Dose 100 MLS/HR; Start at 14:00 Diltiazem HCl (Cardizem Cd) 180 mg DAILY PO Last administered on 08/12/16 08:26 ; Admin Dose 180 MG; Start 08/11/16 at 09:00 Miscellaneous Information Discontinue all previ... PROTOCOL ONCE XX ; Start 08/12 at 22:30; Stop 08/12/16 at 22:31; Status UNV Dextrose/Sodium Chloride (D5-1/2ns) 1,000 ml @ 50 mls/hr Q20H IV Last administered on 08/14/16 09:27; Admin Dose 50 MLS/HR; Start 08/13/16 at 11:30 Insulin Aspart (Novolog Insulin Pen) NOVOLOG *MILD* ALGORI... Q4 SC ; Start 08/13 at 21:00 Miscellaneous Information 1 ea NOTE XX ; Start 08/13/16 at 17:30 Glucose (Glutose) 15 gm Q15M PRN PO DECREASED GLUCOSE; Start 08/13/16 at 17:30 Glucose (Glutose) 22.5 gm Q15M PRN PO DECREASED GLUCOSE; Start 08/13/16 at 17:30 Dextrose (D50w Syringe) 25 ml Q15M PRN IV DECREASED GLUCOSE; Start 08/13/16 at 17:30 Dextrose (D50w Syringe) 50 ml Q15M PRN IV DECREASED GLUCOSE; Start 08/13/16 at 17:30 Glucagon (Glucagen) 1 mg Q15M PRN IM DECREASED GLUCOSE; Start 08/13/16 at 17:30 Glucose 15 gm 15 gm Q15M PRN BUCCAL DECREASED GLUCOSE; Start 08/13/16 at 17:30 Diltiazem HCl (Cardizem-D5W 125 Mg/125 ml Drip) 125 ml @ 5 mls/hr TITRATE IV Last administered on 08/14/16t 10:35; Admin Dose 5 MLS/HR; Start 08/13/16 at 19:00 Assessment/Plan Chief Complaint/Hosp Course 85 year old female admitted with bronchopneumonia, renal failure receiving IV solumedrol with diffuse high frequency tremor, suspect likely secondary to high dose steroids doubt this is a seizure. EEG consistent with slowing, encephalopathy. encephalopathy due to active metabolic issues MRI Brain shows chronic left frontal, bilateral occipital, parietal infarcts no acute infarct or hemorrhage taper steroids when respiratory status more optimized Problems: VANESA MCLAUGHLIN MD Aug 14, 2016 16:08
[2016-08-14] MEDS: MONTELUKAST 10 MG TAB PO SCH (20:17)
[2016-08-14] MEDS: ATORVASTATIN 40 MG TAB PO SCH (20:17)
--- NOTE | 2016-08-14 21:15 | CONS ---
Date/Time of Note Date/Time of Note DATE: 08/14/16 TIME: 21:05 Assessment/Plan Assessment/Plan Problems: (1) Type 2 diabetes mellitus with hyperglycemia Status: Acute Comment: Patient's glycemic control good without insulin now that patient no longer receiving corticosteroids. Qualifiers: Diabetes mellitus fpc insulin use: without fpc use Qualified Code: E11.65 - Type 2 diabetes mellitus with hyperglycemia, without long-term current use of insulin Additional Assessment/Plan Currently on dextrose solution to prevent further hypoglycemic episodes, and will continue until patient's appetite improves. Consultation Date/Type/Reason Admit Date/Time Jul 31, 2016 at 19:59 Initial Consult Date 08/13/16 Type of Consultation: Endocrine Referring Provider: LALA ORO 24 HR Interval Summary Free Text/Dictation Patient transferred to ICU. Off Steroids. No Hyperglycemia noted. S/P thoracentesis. Constitutional: other (Feels "so so") Exam/Review of Systems Vital Signs Vitals Vital Signs Date Time Temp Pulse Resp B/P Pulse Ox O2 Delivery O2 Flow Rate FiO2 08/14/16 20:02 88 20 98 Nasal Cannula 4.0 08/14/16 19:45 128/57 08/14/16 16:00 98.5 08/14/16 04:49 33 Intake and Output 08/13/16 08/13/16 08/14/16 15:00 23:00 07:00 Intake Total 250 ml 1140 ml 640 ml Output Total 2200 ml Balance 250 ml -1060 ml 640 ml Exam Constitutional: alert, oriented, other (weak), well developed Psych: no complaints Eyes: EOMI, PERRL, nl conjunctiva ENMT: mucosa pink and moist Neck: supple Respiratory: clear to auscultation (anteriorally) Cardiovascular: regular rate and rhythm Gastrointestinal: soft Musculoskeletal: nl extremities to inspection Results POC glucose reviewed Result Diagram: 08/14/16 0445 08/14/16 0445 Results 24 hrs Laboratory Tests Test 08/14/16 00:45 08/14/16 01:21 08/14/16 01:37 08/14/16 04:45 Sodium Level 137 134 L 136 Potassium Level 2.9 #*L 3.9 3.9 Chloride Level 101 98 97 Carbon Dioxide Level 20 L 26 25 Anion Gap 19 H 14 18 H Blood Urea Nitrogen 40 #H 52 H 55 H Creatinine 2.48 #H 3.35 H 3.74 H Glucose Level 433 #*H 141 # 161 Calcium Level 6.1 L 7.8 L 7.8 L Bedside Glucose 132 White Blood Count 22.3 H Red Blood Count 3.21 L Hemoglobin 9.3 L Hematocrit 29.5 L Mean Corpuscular Volume 91.9 Mean Corpuscular Hemoglobin 29.0 Mean Corpuscular Hemoglobin Concent 31.5 L Red Cell Distribution Width 15.1 H Platelet Count 190 Mean Platelet Volume 10.3 Neutrophils % 95.4 H Lymphocytes % 0.4 L Monocytes % 1.9 Eosinophils % 0.0 Basophils % 0.1 Nucleated Red Blood Cells % 1.0 H Neutrophils # 21.3 H Lymphocytes # 0.1 L Monocytes # 0.4 Eosinophils # 0.0 Basophils # 0.0 Nucleated Red Blood Cells # 0.2 H Phosphorus Level 5.4 H Magnesium Level 2.0 Test 08/14/16 05:25 08/14/16 06:21 08/14/16 07:00 08/14/16 09:22 Bedside Glucose 149 137 146 Blood Gas Specimen Source Blood arterial Arterial Blood Date Drawn 08/14/2016 8:40:49 AM Arterial Blood pH (Temp corrected) 7.428 Arterial Blood pCO2 (Temp correct) 38.5 Arterial Blood pO2 (Temp corrected) 90.7 H Arterial Blood HCO3 24.9 Arterial Blood Base Excess 0.6 Arterial Blood Oxygen Saturation 96.8 Chris Test ACCEPTAB Arterial Blood Gas Puncture Site Right Radial Arterial Blood Carboxyhemoglobin 0.3 Arterial Blood Methemoglobin 0.7 Blood Gas A-a O2 Differential 99.6 H Oxyhemoglobin Percent 95.8 Total Hemoglobin 9.3 L Blood Gas Temperature 37.0 Blood Gas Modality NASAL CANNULA FiO2 33.0 Blood Gas Notified Whom DT Blood Gas Notified Time 08/14/2016 9:08:40 AM Test 08/14/16 11:10 08/14/16 13:27 08/14/16 17:28 08/14/16 20:27 Body Fluid Type THORACENTESIS FLUID Body Fluid Volume 720.0 Body Fluid Color YELLOW Body Fluid Appearance TURBID Body Fluid WBC [id number] Body Fluid RBC 1+ Body Fluid Neutrophils % 86 Body Fluid Lymphocytes (%) 2 Body Fluid Monocytes % 11 Body Fluid Other Cells (%) 1 Body Fluid Glucose < 20 Body Fluid Total Protein 3.6 Body Fluid Lactate Dehydrogenase Bedside Glucose 136 121 118 Medications Medications Current Medications Atorvastatin Calcium (Lipitor) 40 mg HS PO Last administered on 08/14/16 20:17 ; Admin Dose 40 MG; Start 08/01/16 at 21:00 Calcitriol (Rocaltrol) 0.25 mcg DAILY PO Last administered on 08/14/16 09:01; Admin Dose 0.25 MCG; Start 08/01/16 at 09:00 Calcium/Vitamin D (Oyster Shell/ Vit-D (500/200)) 1 tab BID PO Last administered on 08/14/16 20:18; Admin Dose 1 TAB; Start 08/01/16 at 09:00 Hydralazine HCl (Apresoline) 50 mg Q8 PO Last administered on 08/14/16 13:28; Admin Dose 50 MG; Start 08/01/16 at 06:00 Metoprolol Tartrate (Lopressor) 25 mg BID PO Last administered on 08/14/16 20: 17; Admin Dose 25 MG; Start 08/01/16 at 09:00 Paroxetine HCl (Paxil) 10 mg DAILY PO Last administered on 08/14/16 09:24; Admin Dose 10 MG; Start 08/01/16 at 09:00 Acetaminophen (Tylenol Tab) 650 mg Q4H PRN PO PAIN AND OR ELEVATED TEMP Last administered on 08/11/16 21:21; Admin Dose 650 MG; Start 08/01/16 at 00:30 Hydralazine HCl (Apresoline) 20 mg Q6H PRN IV ELEVATED BLOOD PRESSURE Last administered on 08/09/16 03:50; Admin Dose 20 MG; Start 08/01/16 at 00:30 Guaifenesin/ Dextromethorphan (Robitussin Dm Liquid Cup) 10 ml Q4H PRN PO COUGH Last administered on 08/10/16 09:37; Admin Dose 10 ML; Start 08/01/16 at 00:30 Heparin Sodium (Porcine) (Heparin (5000 Units/0.5 ml)) 5,000 unit BID SC Last administered on 08/04/16 08:55; Admin Dose 5,000 UNIT; Start 08/01/16 at 09:00 ; Status Future Hold Epoetin Braden (Epogen (Esrd)) 6,000 units MoWeFr@17 SC Last administered on 18:08; Admin Dose 6,000 UNITS; Start 08/02/16 at 17:00 Miscellaneous Information 1 ea NOTE XX ; Start 08/02/16 at 12:30 Linagliptin (Tradjenta) 5 mg DAILY PO Last administered on 08/14/16 09:25; Admin Dose 5 MG; Start 08/04/16 at 20:00 Salmeterol Xinafoate/ Fluticasone (Advair 250/50 Diskus) 1 inh BID INH Last administered on 08/14/16 20:17; Admin Dose 1 INH; Start 08/08/16 at 11:00 Montelukast Sodium (Singulair) 10 mg HS PO Last administered on 08/14/16 20:17 ; Admin Dose 10 MG; Start 08/08/16 at 21:00 Tiotropium [place] 1 inh 1 inh DAILY INH Last administered on 08/14/16 09:28; Admin Dose 1 INH; Start 08/08/16 at 11:00 Piperacillin Sod/ Tazobactam Sod (Zosyn 2.25gm/ 50ml (Pmx)) 50 ml @ 100 mls/hr Q8 IVPB Last administered on 08/14/16 13:28; Admin Dose 100 MLS/HR; Start at 14:00 Diltiazem HCl (Cardizem Cd) 180 mg DAILY PO Last administered on 08/12/16 08:26 ; Admin Dose 180 MG; Start 08/11/16 at 09:00 Miscellaneous Information Discontinue all previ... PROTOCOL XX ; Start 08/12/16 at 22:30; Stop 08/15/16 at 22:29; Status UNV Dextrose/Sodium Chloride (D5-1/2ns) 1,000 ml @ 50 mls/hr Q20H IV Last administered on 08/14/16 09:27; Admin Dose 50 MLS/HR; Start 08/13/16 at 11:30 Insulin Aspart (Novolog Insulin Pen) NOVOLOG *MILD* ALGORI... Q4 SC ; Start 08/13 at 21:00 Miscellaneous Information 1 ea NOTE XX ; Start 08/13/16 at 17:30 Glucose (Glutose) 15 gm Q15M PRN PO DECREASED GLUCOSE; Start 4/7/17 at 17:30 Glucose (Glutose) 22.5 gm Q15M PRN PO DECREASED GLUCOSE; Start 08/13/16 at 17:30 Dextrose (D50w Syringe) 25 ml Q15M PRN IV DECREASED GLUCOSE; Start 08/13/16 at 17:30 Dextrose (D50w Syringe) 50 ml Q15M PRN IV DECREASED GLUCOSE; Start 08/13/16 at 17:30 Glucagon (Glucagen) 1 mg Q15M PRN IM DECREASED GLUCOSE; Start 08/13/16 at 17:30 Glucose 15 gm 15 gm Q15M PRN BUCCAL DECREASED GLUCOSE; Start 08/13/16 at 17:30 Diltiazem HCl (Cardizem-D5W 125 Mg/125 ml Drip) 125 ml @ 5 mls/hr TITRATE IV Last administered on 08/14/16t 10:35; Admin Dose 5 MLS/HR; Start 08/13/16 at 19:00 YAMILETH COLLINS MD Aug 14, 2016 21:15
--- NOTE | 2016-08-14 21:58 | CONS ---
Date/Time of Note Date/Time of Note DATE: 08/14/16 TIME: 21:56 Assessment/Plan Assessment/Plan Chief Complaint/Hosp Course IMPRESSION: 1. End-stage renal disease stage V. 2. Fluid overload.better 3. Pulmonary edema./pleural effusion 4. Anemia of chronic kidney disease. 5. History of diabetes mellitus. 6. 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 7. AV fistula on the left upper extremity. 8 pneumonia/bronchites 9 thoracentesis plan continue hd fluis res antibiotic Problems: Consultation Date/Type/Reason Admit Date/Time Jul 31, 2016 at 19:59 Initial Consult Date 08/01/16 Type of Consultation: renal Referring Provider: LALA ORO 24 HR Interval Summary Subjective hx not possible: other (s/p thoracentesis) Exam/Review of Systems Vital Signs Vitals Vital Signs Date Time Temp Pulse Resp B/P Pulse Ox O2 Delivery O2 Flow Rate FiO2 08/14/16 21:45 93 17 103/54 98 08/14/16 21:00 Nasal Cannula 4.0 08/14/16 20:00 97.5 08/14/16 04:49 33 Intake and Output 08/13/16 08/13/16 08/14/16 15:00 23:00 07:00 Intake Total 250 ml 1140 ml 640 ml Output Total 2200 ml Balance 250 ml -1060 ml 640 ml Exam Neck: supple Respiratory: diminished breath sounds Cardiovascular: regular rate and rhythm Gastrointestinal: bowel sounds (+), soft Extremities: edema (+) Results Result Diagram: 08/14/16 0445 08/14/16 0445 Results 24 hrs Laboratory Tests Test 08/14/16 00:45 08/14/16 01:21 08/14/16 01:37 08/14/16 04:45 Sodium Level 137 134 L 136 Potassium Level 2.9 #*L 3.9 3.9 Chloride Level 101 98 97 Carbon Dioxide Level 20 L 26 25 Anion Gap 19 H 14 18 H Blood Urea Nitrogen 40 #H 52 H 55 H Creatinine 2.48 #H 3.35 H 3.74 H Glucose Level 433 #*H 141 # 161 Calcium Level 6.1 L 7.8 L 7.8 L Bedside Glucose 132 White Blood Count 22.3 H Red Blood Count 3.21 L Hemoglobin 9.3 L Hematocrit 29.5 L Mean Corpuscular Volume 91.9 Mean Corpuscular Hemoglobin 29.0 Mean Corpuscular Hemoglobin Concent 31.5 L Red Cell Distribution Width 15.1 H Platelet Count 190 Mean Platelet Volume 10.3 Neutrophils % 95.4 H Lymphocytes % 0.4 L Monocytes % 1.9 Eosinophils % 0.0 Basophils % 0.1 Nucleated Red Blood Cells % 1.0 H Neutrophils # 21.3 H Lymphocytes # 0.1 L Monocytes # 0.4 Eosinophils # 0.0 Basophils # 0.0 Nucleated Red Blood Cells # 0.2 H Phosphorus Level 5.4 H Magnesium Level 2.0 Test 08/14/16 05:25 08/14/16 06:21 08/14/16 07:00 08/14/16 09:22 Bedside Glucose 149 137 146 Blood Gas Specimen Source Blood arterial Arterial Blood Date Drawn 08/14/2016 8:40:49 AM Arterial Blood pH (Temp corrected) 7.428 Arterial Blood pCO2 (Temp correct) 38.5 Arterial Blood pO2 (Temp corrected) 90.7 H Arterial Blood HCO3 24.9 Arterial Blood Base Excess 0.6 Arterial Blood Oxygen Saturation 96.8 Chris Test ACCEPTAB Arterial Blood Gas Puncture Site Right Radial Arterial Blood Carboxyhemoglobin 0.3 Arterial Blood Methemoglobin 0.7 Blood Gas A-a O2 Differential 99.6 H Oxyhemoglobin Percent 95.8 Total Hemoglobin 9.3 L Blood Gas Temperature 37.0 Blood Gas Modality NASAL CANNULA FiO2 33.0 Blood Gas Notified Whom DT Blood Gas Notified Time 08/14/2016 9:08:40 AM Test 08/14/16 11:10 08/14/16 13:27 08/14/16 17:28 08/14/16 20:27 Body Fluid Type THORACENTESIS FLUID Body Fluid Volume 720.0 Body Fluid Color YELLOW Body Fluid Appearance TURBID Body Fluid WBC 628402 Body Fluid RBC 1+ Body Fluid Neutrophils % 86 Body Fluid Lymphocytes (%) 2 Body Fluid Monocytes % 11 Body Fluid Other Cells (%) 1 Body Fluid Glucose < 20 Body Fluid Total Protein 3.6 Body Fluid Lactate Dehydrogenase Bedside Glucose 136 121 118 Medications Medications Current Medications Atorvastatin Calcium (Lipitor) 40 mg HS PO Last administered on 08/14/16 20:17 ; Admin Dose 40 MG; Start 08/01/16 at 21:00 Calcitriol (Rocaltrol) 0.25 mcg DAILY PO Last administered on 08/14/16 09:01; Admin Dose 0.25 MCG; Start 08/01/16 at 09:00 Calcium/Vitamin D (Oyster Shell/ Vit-D (500/200)) 1 tab BID PO Last administered on 08/14/16 20:18; Admin Dose 1 TAB; Start 08/01/16 at 09:00 Hydralazine HCl (Apresoline) 50 mg Q8 PO Last administered on 08/14/16 13:28; Admin Dose 50 MG; Start 08/01/16 at 06:00 Metoprolol Tartrate (Lopressor) 25 mg BID PO Last administered on 08/14/16 20: 17; Admin Dose 25 MG; Start 08/01/16 at 09:00 Paroxetine HCl (Paxil) 10 mg DAILY PO Last administered on 08/14/16 09:24; Admin Dose 10 MG; Start 08/01/16 at 09:00 Acetaminophen (Tylenol Tab) 650 mg Q4H PRN PO PAIN AND OR ELEVATED TEMP Last administered on 08/11/16 21:21; Admin Dose 650 MG; Start 08/01/16 at 00:30 Hydralazine HCl (Apresoline) 20 mg Q6H PRN IV ELEVATED BLOOD PRESSURE Last administered on 08/09/16 03:50; Admin Dose 20 MG; Start 08/01/16 at 00:30 Guaifenesin/ Dextromethorphan (Robitussin Dm Liquid Cup) 10 ml Q4H PRN PO COUGH Last administered on 08/10/16 09:37; Admin Dose 10 ML; Start 08/01/16 at 00:30 Heparin Sodium (Porcine) (Heparin (5000 Units/0.5 ml)) 5,000 unit BID SC Last administered on 08/04/16 08:55; Admin Dose 5,000 UNIT; Start 08/01/16 at 09:00 ; Status Future Hold Epoetin Braden (Epogen (Esrd)) 6,000 units MoWeFr@17 SC Last administered on 18:08; Admin Dose 6,000 UNITS; Start 08/02/16 at 17:00 Miscellaneous Information 1 ea NOTE XX ; Start 08/02/16 at 12:30 Linagliptin (Tradjenta) 5 mg DAILY PO Last administered on 08/14/16 09:25; Admin Dose 5 MG; Start 08/04/16 at 20:00 Salmeterol Xinafoate/ Fluticasone (Advair 250/50 Diskus) 1 inh BID INH Last administered on 08/14/16 20:17; Admin Dose 1 INH; Start 08/08/16 at 11:00 Montelukast Sodium (Singulair) 10 mg HS PO Last administered on 08/14/16 20:17 ; Admin Dose 10 MG; Start 08/08/16 at 21:00 Tiotropium [place] 1 inh 1 inh DAILY INH Last administered on 08/14/16 09:28; Admin Dose 1 INH; Start 08/08/16 at 11:00 Piperacillin Sod/ Tazobactam Sod (Zosyn 2.25gm/ 50ml (Pmx)) 50 ml @ 100 mls/hr Q8 IVPB Last administered on 08/14/16 21:18; Admin Dose 100 MLS/HR; Start at 14:00 Diltiazem HCl (Cardizem Cd) 180 mg DAILY PO Last administered on 08/12/16 08:26 ; Admin Dose 180 MG; Start 08/11/16 at 09:00 Miscellaneous Information Discontinue all previ... PROTOCOL XX ; Start 08/12/16 at 22:30; Stop 08/15/16 at 22:29; Status UNV Dextrose/Sodium Chloride (D5-1/2ns) 1,000 ml @ 50 mls/hr Q20H IV Last administered on 08/14/16 09:27; Admin Dose 50 MLS/HR; Start 08/13/16 at 11:30 Insulin Aspart (Novolog Insulin Pen) NOVOLOG *MILD* ALGORI... Q4 SC ; Start 08/13 at 21:00 Miscellaneous Information 1 ea NOTE XX ; Start 08/13/16 at 17:30 Glucose (Glutose) 15 gm Q15M PRN PO DECREASED GLUCOSE; Start 08/13/16 at 17:30 Glucose (Glutose) 22.5 gm Q15M PRN PO DECREASED GLUCOSE; Start 08/13/16 at 17:30 Dextrose (D50w Syringe) 25 ml Q15M PRN IV DECREASED GLUCOSE; Start 08/13/16 at 17:30 Dextrose (D50w Syringe) 50 ml Q15M PRN IV DECREASED GLUCOSE; Start 08/13/16 at 17:30 Glucagon (Glucagen) 1 mg Q15M PRN IM DECREASED GLUCOSE; Start 08/13/16 at 17:30 Glucose 15 gm 15 gm Q15M PRN BUCCAL DECREASED GLUCOSE; Start 08/13/16 at 17:30 Diltiazem HCl (Cardizem-D5W 125 Mg/125 ml Drip) 125 ml @ 5 mls/hr TITRATE IV Last administered on 08/14/16t 10:35; Admin Dose 5 MLS/HR; Start 08/13/16 at 19:00 DAT OLSON MD Aug 14, 2016 21:58
[2016-08-14] MEDS: ACETAMINOPHEN 325 MG TAB PO PRN (22:09)
[2016-08-15] VITALS (79 sets, daily range): BP systolic 80–145; BP diastolic 37–109; PULSE 77–155; RESP 8–27
[2016-08-15] MEDS: INSULIN ASPART [NOVOLOG] 3 ML PEN SC SCH ×6 (01:00→21:07)
[2016-08-15] MEDS: ALBUTEROL/IPRATROPIUM (NEB) 3 ML AMP HHN SCH ×4 (01:09→20:33)
[2016-08-15] MEDS: DEXTROSE 5%-0.45% NACL 1,000 ML IV SCH ×2 (03:30→11:19)
[2016-08-15] MEDS: FUROSEMIDE 40 MG INJ IV SCH ×2 (04:55→16:12)
[2016-08-15] MEDS: PIPER-TAZO 2.25 GM (PMX) 50 ML IVPB SCH ×3 (05:14→22:40)
[2016-08-15 05:47] LABS: ADD SCAN DIFF NO
[2016-08-15 05:52] LABS: ABNORMAL IP MESSAGE 1; BASOPHILS % 0.1 % (0.0-2.0); HEMATOCRIT 28.9 % (37.0-47.0); HEMOGLOBIN 9.2 g/dl (12.0-16.0); LYMPHOCYTES # 0.2 10^3/ul (0.8-2.9); LYMPHOCYTES % 1.3 % (15.0-51.0); MEAN CORPUSCULAR HEMOGLOBIN 29.9 pg (29.0-33.0); MEAN CORPUSCULAR HGB CONC 31.8 g/dl (32.0-37.0); MEAN CORPUSCULAR VOLUME 93.8 fl (82.0-101.0); MEAN PLATELET VOLUME 10.7 fl (7.4-10.4); MONOCYTE # 0.4 10^3/ul (0.3-0.9); NEUTROPHIL # 16.4 10^3/ul (1.6-7.5); NEUTROPHILS % 94.6 % (39.0-77.0); NUCLEATED RED BLOOD CELLS # 0.1 10^3/ul (0.0-0.0); NUCLEATED RED BLOOD CELLS% 0.5 /100WBC (0.0-0.0); PLATELET COUNT 175 10^3/UL (140-415); RED BLOOD COUNT 3.08 10^6/ul (4.20-5.40); RED CELL DISTRIBUTION WIDTH 15.1 % (11.5-14.5); WHITE BLOOD COUNT 17.4 10^3/ul (4.8-10.8)
[2016-08-15 06:19] LABS: ALBUMIN 2.4 g/dl (3.3-4.9)
[2016-08-15 06:20] LABS: POTASSIUM 4.1 mmol/L (3.5-5.1)
[2016-08-15 06:22] LABS: ALBUMIN/GLOBULIN RATIO 0.92; BILIRUBIN,INDIRECT 0.3 mg/dl (0-1.1); BILIRUBIN,TOTAL 0.3 mg/dl (0.2-1.3); PHOSPHORUS 7.6 mg/dl (2.5-4.9)
[2016-08-15 06:23] LABS: CALCIUM 7.5 mg/dl (8.4-10.2)
[2016-08-15 06:39] LABS: CREATININE 4.7 mg/dl (0.44-1.00)
[2016-08-15] MEDS: DILTIAZEM (CD) 180 MG CAP PO SCH (08:58)
[2016-08-15] MEDS: LINAGLIPTIN 5 MG TABLET PO SCH (08:58)
[2016-08-15] MEDS: CALCITRIOL 0.25 MCG CAP PO SCH (08:58)
[2016-08-15] MEDS: METOPROLOL 25 MG TAB PO SCH ×2 (08:58→22:40)
[2016-08-15] MEDS: TIOTROPIUM 18 MCG CAPSULE INHA DEV INH SCH (08:59)
[2016-08-15] MEDS: CALCIUM/VITAMIN D (500/200) TAB PO SCH ×2 (08:59→20:59)
[2016-08-15] MEDS: PAROXETINE 10 MG TAB PO SCH (09:01)
--- NOTE | 2016-08-15 11:00 | PN ---
Date/Time of Note Date/Time of Note DATE: 08/15/16 TIME: 10:40 Assessment/Plan VTE Prophylaxis VTE Prophylaxis Intervention: heparin Lines/Catheters IV Catheter Type (from [facility]): Peripheral IV Urinary Cath still in place: No Assessment/Plan Assessment/Plan -Acute respiratory insufficiency secondary to pneumonia and COPD exacerbation. - Right-sided pneumonia per CT scan, continue cefepime. - A-fib with RVR, continue Cardizem, patient is followed by Dr. Stuart in cardiology. - COPD exacerbation, continue breathing treatment. Dr. Natarajan is following in pulmonology consultation - End-stage renal disease stage V. Dr. Leon is following in nephrology consultation. Continue to hemodialysis via right femoral hemodialysis catheter. - Pulmonary edema. Continue diuresis. - Anemia of chronic kidney disease. Continue Epogen. - Diabetes mellitus type [address] Garcia is following an endocrinology consultation. Continue NPH. - Hypertension, continue Norvasc. -Left upper extremity AV fistula, non-matured -Status post right hemodialysis non-tunneled catheter placement by Dr. Manning on 08/03. S/p R IJ tunneled hemodialysis catheter placement. Further treatment depends upon patient's clnical course. Total critical care time spent 30 mins. Plan of care dw Dr Flores/staff Subjective 24 Hr Interval Summary Free Text/Dictation Alert/awake. no verabl response yet, having dialysis now- tolerating . dw staff Constitutional: requiring IVF, requiring O2 Eyes: no complaints, pain Exam/Review of Systems Vital Signs Vitals Vital Signs Date Time Temp Pulse Resp B/P Pulse Ox O2 Delivery O2 Flow Rate FiO2 08/15/16 10:15 137 19 08/15/16 10:00 91/52 98 Nasal Cannula 4.0 08/15/16 08:00 98.7 08/14/16 04:49 33 Intake and Output 08/14/16 08/14/16 08/15/16 15:00 23:00 07:00 Intake Total 645 ml 705 ml 450 ml Output Total 700 ml 0 ml Balance -55 ml 705 ml 450 ml Exam Constitutional: alert, well developed Psych: nl mood/affect Head: atraumatic Eyes: nl sclera ENMT: nl external ears & nose Neck: non-tender Respiratory: diminished breath sounds Cardiovascular: nl pulses Gastrointestinal: non-tender, soft Musculoskeletal: muscle weakness Extremities: normal pulses 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: confused Skin: other Lymph: nontender Results Result Diagram: 08/15/16 0510 08/15/16 0458 Results 24 hrs Laboratory Tests Test 08/14/16 11:10 08/14/16 13:27 08/14/16 17:28 08/14/16 20:27 Body Fluid Type THORACENTESIS FLUID Body Fluid Volume 720.0 Body Fluid Color YELLOW Body Fluid Appearance TURBID Body Fluid WBC 355167 Body Fluid RBC 1+ Body Fluid Neutrophils % 86 Body Fluid Lymphocytes (%) 2 Body Fluid Monocytes % 11 Body Fluid Other Cells (%) 1 Body Fluid Glucose < 20 Body Fluid Total Protein 3.6 Body Fluid Lactate Dehydrogenase Bedside Glucose 136 121 118 Test 08/15/16 01:04 08/15/16 04:49 08/15/16 04:58 08/15/16 05:10 Bedside Glucose 83 149 Sodium Level 134 L Potassium Level 4.1 Chloride Level 96 L Carbon Dioxide Level 23 Anion Gap 19 H Blood Urea Nitrogen 80 H Creatinine 4.70 H Glucose Level 105 # Calcium Level 7.5 L Phosphorus Level 7.6 #H Total Bilirubin 0.3 Direct Bilirubin 0.00 Indirect Bilirubin 0.3 Aspartate Amino Transf (AST/SGOT) 17 Alanine Aminotransferase (ALT/SGPT) 18 Alkaline Phosphatase 70 Total Protein 5.0 L Albumin 2.4 L Globulin 2.60 Albumin/Globulin Ratio 0.92 White Blood Count 17.4 #H Red Blood Count 3.08 L Hemoglobin 9.2 L Hematocrit 28.9 L Mean Corpuscular Volume 93.8 Mean Corpuscular Hemoglobin 29.9 Mean Corpuscular Hemoglobin Concent 31.8 L Red Cell Distribution Width 15.1 H Platelet Count 175 Mean Platelet Volume 10.7 H Neutrophils % 94.6 H Lymphocytes % 1.3 L Monocytes % 2.0 Eosinophils % 0.0 Basophils % 0.1 Nucleated Red Blood Cells % 0.5 H Neutrophils # 16.4 H Lymphocytes # 0.2 L Monocytes # 0.4 Eosinophils # 0.0 Basophils # 0.0 Nucleated Red Blood Cells # 0.1 H Test 08/15/16 07:55 Bedside Glucose 103 Medications Medications Current Medications Atorvastatin Calcium (Lipitor) 40 mg HS PO Last administered on 08/14/16t 20:17 ; Admin Dose 40 MG; Start 08/01/16 at 21:00 Calcitriol (Rocaltrol) 0.25 mcg DAILY PO Last administered on 08/15/16 08:58; Admin Dose 0.25 MCG; Start 08/01/16 at 09:00 Calcium/Vitamin D (Oyster Shell/ Vit-D (500/200)) 1 tab BID PO Last administered on 08/15/16 08:59; Admin Dose 1 TAB; Start 08/01/16 at 09:00 Hydralazine HCl (Apresoline) 50 mg Q8 PO Last administered on 08/14/16 22:08; Admin Dose 50 MG; Start 08/01/16 at 06:00 Metoprolol Tartrate (Lopressor) 25 mg BID PO Last administered on 08/15/16 08: 58; Admin Dose 25 MG; Start 08/01/16 at 09:00 Paroxetine HCl (Paxil) 10 mg DAILY PO Last administered on 08/15/16 09:01; Admin Dose 10 MG; Start 08/01/16 at 09:00 Acetaminophen (Tylenol Tab) 650 mg Q4H PRN PO PAIN AND OR ELEVATED TEMP Last administered on 08/14/16 22:09; Admin Dose 650 MG; Start 08/01/16 at 00:30 Hydralazine HCl (Apresoline) 20 mg Q6H PRN IV ELEVATED BLOOD PRESSURE Last administered on 08/09/16 03:50; Admin Dose 20 MG; Start 08/01/16 at 00:30 Guaifenesin/ Dextromethorphan (Robitussin Dm Liquid Cup) 10 ml Q4H PRN PO COUGH Last administered on 08/10/16 09:37; Admin Dose 10 ML; Start 08/01/16 at 00:30 Heparin Sodium (Porcine) (Heparin (5000 Units/0.5 ml)) 5,000 unit BID SC Last administered on 08/04/16 08:55; Admin Dose 5,000 UNIT; Start 08/01/16 at 09:00 ; Status Future Hold Epoetin Braden (Epogen (Esrd)) 6,000 units MoWeFr@17 SC Last administered on 18:08; Admin Dose 6,000 UNITS; Start 08/02/16 at 17:00 Miscellaneous Information 1 ea NOTE XX ; Start 08/02/16 at 12:30 Linagliptin (Tradjenta) 5 mg DAILY PO Last administered on 08/15/16 08:58; Admin Dose 5 MG; Start 08/04/16 at 20:00 Salmeterol Xinafoate/ Fluticasone (Advair 250/50 Diskus) 1 inh BID INH Last administered on 08/14/16 20:17; Admin Dose 1 INH; Start 08/08/16 at 11:00 Montelukast Sodium (Singulair) 10 mg HS PO Last administered on 08/14/16 20:17 ; Admin Dose 10 MG; Start 08/08/16 at 21:00 Tiotropium [place] 1 inh 1 inh DAILY INH Last administered on 08/15/16 08:59; Admin Dose 1 INH; Start 08/08/16 at 11:00 Piperacillin Sod/ Tazobactam Sod (Zosyn 2.25gm/ 50ml (Pmx)) 50 ml @ 100 mls/hr Q8 IVPB Last administered on 08/15/16 05:14; Admin Dose 100 MLS/HR; Start at 14:00 Diltiazem HCl (Cardizem Cd) 180 mg DAILY PO Last administered on 08/15/16 08:58 ; Admin Dose 180 MG; Start 08/11/16 at 09:00 Miscellaneous Information Discontinue all previ... PROTOCOL XX ; Start 08/12/16 at 22:30; Stop 08/15/16 at 22:29; Status UNV Dextrose/Sodium Chloride (D5-1/2ns) 1,000 ml @ 50 mls/hr Q20H IV Last administered on 08/14/16 09:27; Admin Dose 50 MLS/HR; Start 08/13/16 at 11:30 Insulin Aspart (Novolog Insulin Pen) NOVOLOG *MILD* ALGORI... Q4 SC Last administered on 08/15/16 04:54; Admin Dose 1 UNIT; Start 08/13/16 at 21:00 Miscellaneous Information 1 ea NOTE XX ; Start 08/13/16 at 17:30 Glucose (Glutose) 15 gm Q15M PRN PO DECREASED GLUCOSE; Start 08/13/16 at 17:30 Glucose (Glutose) 22.5 gm Q15M PRN PO DECREASED GLUCOSE; Start 08/13/16 at 17:30 Dextrose (D50w Syringe) 25 ml Q15M PRN IV DECREASED GLUCOSE; Start 08/13/16 at 17:30 Dextrose (D50w Syringe) 50 ml Q15M PRN IV DECREASED GLUCOSE; Start 08/13/16 at 17:30 Glucagon (Glucagen) 1 mg Q15M PRN IM DECREASED GLUCOSE; Start 08/13/16 at 17:30 Glucose 15 gm 15 gm Q15M PRN BUCCAL DECREASED GLUCOSE; Start 08/13/16 at 17:30 Diltiazem HCl (Cardizem-D5W 125 Mg/125 ml Drip) 125 ml @ 5 mls/hr TITRATE IV Last administered on 08/14/16 10:35; Admin Dose 5 MLS/HR; Start 08/13/16 at 19:00 LALA ORO Aug 15, 2016 10:50
--- NOTE | 2016-08-15 12:19 | CONS ---
Date/Time of Note Date/Time of Note DATE: 08/15/16 TIME: 12:18 Consult Date/Type/Reason Admit Date/Time Jul 31, 2016 at 19:59 Initial Consult Date 08/13/16 Type of Consultation: Pulm Ordering Provider: LALA ORO Subjective s/p HD with 2L UF. No complaints. Objective Vital Signs Date Time Temp Pulse Resp B/P Pulse Ox O2 Delivery O2 Flow Rate FiO2 08/15/16 12:00 137 08/15/16 11:48 3 08/15/16 11:30 19 107/53 98 Nasal Cannula 08/15/16 08:00 98.7 08/14/16 04:49 33 Intake and Output 08/14/16 08/14/16 08/15/16 15:00 23:00 07:00 Intake Total 645 ml 705 ml 450 ml Output Total 700 ml 0 ml Balance -55 ml 705 ml 450 ml Exam NECK: Supple. No JVD or lymphadenopathy. CARDIAC EXAM: S1, S2. 2/6 systolic ejection murmur CHEST: Diminished air entry bilaterally right greater than left ABDOMEN: Soft, nontender. No guarding or rebound. EXTREMITIES: No cyanosis, clubbing edema +1 Results/Medications Result Diagram: 08/15/16 0510 08/15/16 0458 Results 24 hrs Laboratory Tests Test 08/14/16 13:27 08/14/16 17:28 08/14/16 20:27 08/15/16 01:04 Bedside Glucose 136 121 118 83 Test 08/15/16 04:49 08/15/16 04:58 08/15/16 05:10 08/15/16 07:55 Bedside Glucose 149 103 Sodium Level 134 L Potassium Level 4.1 Chloride Level 96 L Carbon Dioxide Level 23 Anion Gap 19 H Blood Urea Nitrogen 80 H Creatinine 4.70 H Glucose Level 105 # Calcium Level 7.5 L Phosphorus Level 7.6 #H Total Bilirubin 0.3 Direct Bilirubin 0.00 Indirect Bilirubin 0.3 Aspartate Amino Transf (AST/SGOT) 17 Alanine Aminotransferase (ALT/SGPT) 18 Alkaline Phosphatase 70 Total Protein 5.0 L Albumin 2.4 L Globulin 2.60 Albumin/Globulin Ratio 0.92 White Blood Count 17.4 #H Red Blood Count 3.08 L Hemoglobin 9.2 L Hematocrit 28.9 L Mean Corpuscular Volume 93.8 Mean Corpuscular Hemoglobin 29.9 Mean Corpuscular Hemoglobin Concent 31.8 L Red Cell Distribution Width 15.1 H Platelet Count 175 Mean Platelet Volume 10.7 H Neutrophils % 94.6 H Lymphocytes % 1.3 L Monocytes % 2.0 Eosinophils % 0.0 Basophils % 0.1 Nucleated Red Blood Cells % 0.5 H Neutrophils # 16.4 H Lymphocytes # 0.2 L Monocytes # 0.4 Eosinophils # 0.0 Basophils # 0.0 Nucleated Red Blood Cells # 0.1 H Medications Current Medications Atorvastatin Calcium (Lipitor) 40 mg HS PO Last administered on 08/14/16 20:17 ; Admin Dose 40 MG; Start 08/01/16 at 21:00 Calcitriol (Rocaltrol) 0.25 mcg DAILY PO Last administered on 08/15/16 08:58; Admin Dose 0.25 MCG; Start 08/01/16 at 09:00 Calcium/Vitamin D (Oyster Shell/ Vit-D (500/200)) 1 tab BID PO Last administered on 08/15/16 08:59; Admin Dose 1 TAB; Start 08/01/16 at 09:00 Hydralazine HCl (Apresoline) 50 mg Q8 PO Last administered on 08/14/16 22:08; Admin Dose 50 MG; Start 08/01/16 at 06:00 Metoprolol Tartrate (Lopressor) 25 mg BID PO Last administered on 08/15/16 08: 58; Admin Dose 25 MG; Start 08/01/16 at 09:00 Paroxetine HCl (Paxil) 10 mg DAILY PO Last administered on 08/15/16 09:01; Admin Dose 10 MG; Start 08/01/16 at 09:00 Acetaminophen (Tylenol Tab) 650 mg Q4H PRN PO PAIN AND OR ELEVATED TEMP Last administered on 08/14/16 22:09; Admin Dose 650 MG; Start 08/01/16 at 00:30 Hydralazine HCl (Apresoline) 20 mg Q6H PRN IV ELEVATED BLOOD PRESSURE Last administered on 08/09/16 03:50; Admin Dose 20 MG; Start 08/01/16 at 00:30 Guaifenesin/ Dextromethorphan (Robitussin Dm Liquid Cup) 10 ml Q4H PRN PO COUGH Last administered on 08/10/16 09:37; Admin Dose 10 ML; Start 08/01/16 at 00:30 Heparin Sodium (Porcine) (Heparin (5000 Units/0.5 ml)) 5,000 unit BID SC Last administered on 08/04/16 08:55; Admin Dose 5,000 UNIT; Start 08/01/16 at 09:00 ; Status Future Hold Epoetin Braden (Epogen (Esrd)) 6,000 units MoWeFr@17 SC Last administered on 18:08; Admin Dose 6,000 UNITS; Start 08/02/16 at 17:00 Miscellaneous Information 1 ea NOTE XX ; Start 08/02/16 at 12:30 Linagliptin (Tradjenta) 5 mg DAILY PO Last administered on 08/15/16 08:58; Admin Dose 5 MG; Start 08/04/16 at 20:00 Salmeterol Xinafoate/ Fluticasone (Advair 250/50 Diskus) 1 inh BID INH Last administered on 08/14/16 20:17; Admin Dose 1 INH; Start 08/08/16 at 11:00 Montelukast Sodium (Singulair) 10 mg HS PO Last administered on 08/14/16 20:17 ; Admin Dose 10 MG; Start 08/08/16 at 21:00 Tiotropium [place] 1 inh 1 inh DAILY INH Last administered on 08/15/16 08:59; Admin Dose 1 INH; Start 08/08/16 at 11:00 Piperacillin Sod/ Tazobactam Sod (Zosyn 2.25gm/ 50ml (Pmx)) 50 ml @ 100 mls/hr Q8 IVPB Last administered on 08/15/16 05:14; Admin Dose 100 MLS/HR; Start at 14:00 Diltiazem HCl (Cardizem Cd) 180 mg DAILY PO Last administered on 08/15/16 08:58 ; Admin Dose 180 MG; Start 08/11/16 at 09:00 Miscellaneous Information Discontinue all previ... PROTOCOL XX ; Start 08/12/16 at 22:30; Stop 08/15/16 at 22:29; Status UNV Dextrose/Sodium Chloride (D5-1/2ns) 1,000 ml @ 50 mls/hr Q20H IV Last administered on 08/15/16 11:19; Admin Dose 50 MLS/HR; Start 08/13/16 at 11:30 Insulin Aspart (Novolog Insulin Pen) NOVOLOG *MILD* ALGORI... Q4 SC Last administered on 08/15/16 04:54; Admin Dose 1 UNIT; Start 08/13/16 at 21:00 Miscellaneous Information 1 ea NOTE XX ; Start 08/13/16 at 17:30 Glucose (Glutose) 15 gm Q15M PRN PO DECREASED GLUCOSE; Start 08/13/16 at 17:30 Glucose (Glutose) 22.5 gm Q15M PRN PO DECREASED GLUCOSE; Start 08/13/16 at 17:30 Dextrose (D50w Syringe) 25 ml Q15M PRN IV DECREASED GLUCOSE; Start 08/13/16 at 17:30 Dextrose (D50w Syringe) 50 ml Q15M PRN IV DECREASED GLUCOSE; Start 08/13/16 at 17:30 Glucagon (Glucagen) 1 mg Q15M PRN IM DECREASED GLUCOSE; Start 08/13/16 at 17:30 Glucose 15 gm 15 gm Q15M PRN BUCCAL DECREASED GLUCOSE; Start 08/13/16 at 17:30 Diltiazem HCl (Cardizem-D5W 125 Mg/125 ml Drip) 125 ml @ 5 mls/hr TITRATE IV Last administered on 08/14/16 10:35; Admin Dose 5 MLS/HR; Start 08/13/16 at 19:00 Assessment/Plan Additional Assessment/Plan IMPRESSION: 1. Hypoxemic respiratory failure possibly secondary to aspiration pneumonia v. healthcare associated pneumonia. Pleural effusion with compressive atelectasis 2. Severe sepsis 3. Altered mental status likely toxic metabolic encephalopathy 4. End-stage renal failure on hemodialysis 5. Right Effusion s/p tap RECS: 1. ST eval 2. Incentive spirometry if tolerated 3. Chest PT 4. Aspiration precautions 5. Ok for tele 5W in front RN station ROMANA RUBIO MD Aug 15, 2016 12:19
[2016-08-15] MEDS: EPOETIN 3000 UNITS/1 ML INJ (ESRD) SC SCH (12:31)
[2016-08-15] MEDS: SALMETEROL/FLUTICASONE 250/50 INHA INH SCH ×2 (12:41→20:59)
--- NOTE | 2016-08-15 14:10 | CONS ---
Date/Time of Note Date/Time of Note DATE: 08/15/16 TIME: 14:03 Assessment/Plan Assessment/Plan Additional Assessment/Plan Acute exacerbation of CHF Atrial fibrillation with RVR Pleural effusion s/p thoracentesis ESRD on HD Hypertension Diabetes Dyslipidemia Anemia Leucocytosis In atrial fibrillation with RVR Started on amiodarone Continue HD as scheduled Continue Antibiotics Continue Metoprolol Continue Tradjenta Continue Lipitor Consultation Date/Type/Reason Admit Date/Time Jul 31, 2016 at 19:59 Initial Consult Date 08/13/16 Type of Consultation: Pulm Referring Provider: LALA ORO Exam/Review of Systems Vital Signs Vitals Vital Signs Date Time Temp Pulse Resp B/P Pulse Ox O2 Delivery O2 Flow Rate FiO2 08/15/16 13:00 98.8 97 18 123/68 97 Nasal Cannula 4.0 08/14/16 04:49 33 Intake and Output 08/14/16 08/14/16 08/15/16 15:00 23:00 07:00 Intake Total 645 ml 705 ml 450 ml Output Total 700 ml 0 ml Balance -55 ml 705 ml 450 ml Exam Head: atraumatic, normocephalic Respiratory: diminished breath sounds Cardiovascular: irregular rhythm, regular rate and rhythm Gastrointestinal: nl liver, spleen, non-tender, soft Extremities: normal pulses Results Result Diagram: 08/15/16 0510 08/15/16 0458 Results 24 hrs Laboratory Tests Test 08/14/16 17:28 08/14/16 20:27 08/15/16 01:04 08/15/16 04:49 Bedside Glucose 121 118 83 149 Test 08/15/16 04:58 08/15/16 05:10 08/15/16 07:55 08/15/16 12:29 Sodium Level 134 L Potassium Level 4.1 Chloride Level 96 L Carbon Dioxide Level 23 Anion Gap 19 H Blood Urea Nitrogen 80 H Creatinine 4.70 H Glucose Level 105 # Calcium Level 7.5 L Phosphorus Level 7.6 #H Total Bilirubin 0.3 Direct Bilirubin 0.00 Indirect Bilirubin 0.3 Aspartate Amino Transf (AST/SGOT) 17 Alanine Aminotransferase (ALT/SGPT) 18 Alkaline Phosphatase 70 Total Protein 5.0 L Albumin 2.4 L Globulin 2.60 Albumin/Globulin Ratio 0.92 White Blood Count 17.4 #H Red Blood Count 3.08 L Hemoglobin 9.2 L Hematocrit 28.9 L Mean Corpuscular Volume 93.8 Mean Corpuscular Hemoglobin 29.9 Mean Corpuscular Hemoglobin Concent 31.8 L Red Cell Distribution Width 15.1 H Platelet Count 175 Mean Platelet Volume 10.7 H Neutrophils % 94.6 H Lymphocytes % 1.3 L Monocytes % 2.0 Eosinophils % 0.0 Basophils % 0.1 Nucleated Red Blood Cells % 0.5 H Neutrophils # 16.4 H Lymphocytes # 0.2 L Monocytes # 0.4 Eosinophils # 0.0 Basophils # 0.0 Nucleated Red Blood Cells # 0.1 H Bedside Glucose 103 156 Medications Medications Current Medications Atorvastatin Calcium (Lipitor) 40 mg HS PO Last administered on 08/14/16 20:17 ; Admin Dose 40 MG; Start 08/01/16 at 21:00 Calcitriol (Rocaltrol) 0.25 mcg DAILY PO Last administered on 08/15/16 08:58; Admin Dose 0.25 MCG; Start 08/01/16 at 09:00 Calcium/Vitamin D (Oyster Shell/ Vit-D (500/200)) 1 tab BID PO Last administered on 08/15/16 08:59; Admin Dose 1 TAB; Start 08/01/16 at 09:00 Hydralazine HCl (Apresoline) 50 mg Q8 PO Last administered on 08/14/16 22:08; Admin Dose 50 MG; Start 08/01/16 at 06:00 Metoprolol Tartrate (Lopressor) 25 mg BID PO Last administered on 08/15/16 08: 58; Admin Dose 25 MG; Start 08/01/16 at 09:00 Paroxetine HCl (Paxil) 10 mg DAILY PO Last administered on 08/15/16 09:01; Admin Dose 10 MG; Start 08/01/16 at 09:00 Acetaminophen (Tylenol Tab) 650 mg Q4H PRN PO PAIN AND OR ELEVATED TEMP Last administered on 08/14/16 22:09; Admin Dose 650 MG; Start 08/01/16 at 00:30 Hydralazine HCl (Apresoline) 20 mg Q6H PRN IV ELEVATED BLOOD PRESSURE Last administered on 08/09/16 03:50; Admin Dose 20 MG; Start 08/01/16 at 00:30 Guaifenesin/ Dextromethorphan (Robitussin Dm Liquid Cup) 10 ml Q4H PRN PO COUGH Last administered on 08/10/16 09:37; Admin Dose 10 ML; Start 08/01/16 at 00:30 Heparin Sodium (Porcine) (Heparin (5000 Units/0.5 ml)) 5,000 unit BID SC Last administered on 08/04/16 08:55; Admin Dose 5,000 UNIT; Start 08/01/16 at 09:00 ; Status Future Hold Epoetin Braden (Epogen (Esrd)) 6,000 units MoWeFr@17 SC Last administered on 12:31; Admin Dose 6,000 UNITS; Start 08/02/16 at 17:00 Miscellaneous Information 1 ea NOTE XX ; Start 08/02/16 at 12:30 Linagliptin (Tradjenta) 5 mg DAILY PO Last administered on 08/15/16 08:58; Admin Dose 5 MG; Start 08/04/16 at 20:00 Salmeterol Xinafoate/ Fluticasone (Advair 250/50 Diskus) 1 inh BID INH Last administered on 08/15/16 12:41; Admin Dose 1 INH; Start 08/08/16 at 11:00 Montelukast Sodium (Singulair) 10 mg HS PO Last administered on 08/14/16 20:17 ; Admin Dose 10 MG; Start 08/08/16 at 21:00 Tiotropium [place] 1 inh 1 inh DAILY INH Last administered on 08/15/16 08:59; Admin Dose 1 INH; Start 08/08/16 at 11:00 Piperacillin Sod/ Tazobactam Sod (Zosyn 2.25gm/ 50ml (Pmx)) 50 ml @ 100 mls/hr Q8 IVPB Last administered on 08/15/16 05:14; Admin Dose 100 MLS/HR; Start at 14:00 Diltiazem HCl (Cardizem Cd) 180 mg DAILY PO Last administered on 08/15/16 08:58 ; Admin Dose 180 MG; Start 08/11/16 at 09:00 Miscellaneous Information Discontinue all previ... PROTOCOL XX ; Start 08/12/16 at 22:30; Stop 08/15/16 at 22:29; Status UNV Dextrose/Sodium Chloride (D5-1/2ns) 1,000 ml @ 50 mls/hr Q20H IV Last administered on 08/15/16 11:19; Admin Dose 50 MLS/HR; Start 08/13/16 at 11:30 Insulin Aspart (Novolog Insulin Pen) NOVOLOG *MILD* ALGORI... Q4 SC Last administered on 08/15/16 12:36; Admin Dose 1 UNIT; Start 08/13/16 at 21:00 Miscellaneous Information 1 ea NOTE XX ; Start 08/13/16 at 17:30 Glucose (Glutose) 15 gm Q15M PRN PO DECREASED GLUCOSE; Start 08/13/16 at 17:30 Glucose (Glutose) 22.5 gm Q15M PRN PO DECREASED GLUCOSE; Start 08/13/16 at 17:30 Dextrose (D50w Syringe) 25 ml Q15M PRN IV DECREASED GLUCOSE; Start 08/13/16 at 17:30 Dextrose (D50w Syringe) 50 ml Q15M PRN IV DECREASED GLUCOSE; Start 08/13/16 at 17:30 Glucagon (Glucagen) 1 mg Q15M PRN IM DECREASED GLUCOSE; Start 08/13/16 at 17:30 Glucose 15 gm 15 gm Q15M PRN BUCCAL DECREASED GLUCOSE; Start 08/13/16 at 17:30 Diltiazem HCl (Cardizem-D5W 125 Mg/125 ml Drip) 125 ml @ 5 mls/hr TITRATE IV Last administered on 08/14/16 10:35; Admin Dose 5 MLS/HR; Start 08/13/16 at 19:00 Miscellaneous Information (*Rx Drug Level Order Reminder*) RANDOM VANCOMYCIN LEVEL 4... ONCE ONCE XX ; Start 08/16/16 at 05:00; Stop 08/16/16 at 05:01 FRAN LÓPEZ M.D. Aug 15, 2016 14:10
[2016-08-15] MEDS ORDERED: AMIODARONE 150MG/D5W BOLUS 100 ML IV ONE (14:30)
[2016-08-15] MEDS ORDERED: AMIODARONE 900 MG in DEXTROSE 5% 482 ML IV SCH (14:30)
--- NOTE | 2016-08-15 15:52 | CONS ---
Date/Time of Note Date/Time of Note DATE: 08/15/16 TIME: 15:48 Assessment/Plan Assessment/Plan Problems: (1) Diabetes mellitus, type 2 Status: Chronic Comment: Glucose levels controlled. Requiring minimal amounts of insulin and only for correction. Continues on dextrose fluids until appetite improves Additional Assessment/Plan Continue to monitor Consultation Date/Type/Reason Admit Date/Time Jul 31, 2016 at 19:59 Initial Consult Date 08/13/16 Type of Consultation: Endocrine Reason for Consultation Glycemic management Referring Provider: LALA ORO 24 HR Interval Summary Free Text/Dictation Feeling a little stronger and breathing a little better today. Constitutional: improved Exam/Review of Systems Vital Signs Vitals Vital Signs Date Time Temp Pulse Resp B/P Pulse Ox O2 Delivery O2 Flow Rate FiO2 08/15/16 14:12 108 28 96 Nasal Cannula 4.0 08/15/16 13:00 98.8 123/68 08/14/16 04:49 33 Intake and Output 08/14/16 08/14/16 08/15/16 15:00 23:00 07:00 Intake Total 645 ml 705 ml 450 ml Output Total 700 ml 0 ml Balance -55 ml 705 ml 450 ml Exam Constitutional: alert, oriented, well developed Head: normocephalic Eyes: EOMI, nl conjunctiva, nl sclera ENMT: other (NG tube) Neck: supple Respiratory: clear to auscultation Cardiovascular: irregular rhythm Gastrointestinal: soft Musculoskeletal: nl extremities to inspection Results POC glucose reviewed Result Diagram: 08/15/16 0510 08/15/16 0458 Results 24 hrs Laboratory Tests Test 08/14/16 17:28 08/14/16 20:27 08/15/16 01:04 08/15/16 04:49 Bedside Glucose 121 118 83 149 Test 08/15/16 04:58 08/15/16 05:10 08/15/16 07:55 08/15/16 12:29 Sodium Level 134 L Potassium Level 4.1 Chloride Level 96 L Carbon Dioxide Level 23 Anion Gap 19 H Blood Urea Nitrogen 80 H Creatinine 4.70 H Glucose Level 105 # Calcium Level 7.5 L Phosphorus Level 7.6 #H Total Bilirubin 0.3 Direct Bilirubin 0.00 Indirect Bilirubin 0.3 Aspartate Amino Transf (AST/SGOT) 17 Alanine Aminotransferase (ALT/SGPT) 18 Alkaline Phosphatase 70 Total Protein 5.0 L Albumin 2.4 L Globulin 2.60 Albumin/Globulin Ratio 0.92 White Blood Count 17.4 #H Red Blood Count 3.08 L Hemoglobin 9.2 L Hematocrit 28.9 L Mean Corpuscular Volume 93.8 Mean Corpuscular Hemoglobin 29.9 Mean Corpuscular Hemoglobin Concent 31.8 L Red Cell Distribution Width 15.1 H Platelet Count 175 Mean Platelet Volume 10.7 H Neutrophils % 94.6 H Lymphocytes % 1.3 L Monocytes % 2.0 Eosinophils % 0.0 Basophils % 0.1 Nucleated Red Blood Cells % 0.5 H Neutrophils # 16.4 H Lymphocytes # 0.2 L Monocytes # 0.4 Eosinophils # 0.0 Basophils # 0.0 Nucleated Red Blood Cells # 0.1 H Bedside Glucose 103 156 Medications Medications Current Medications Atorvastatin Calcium (Lipitor) 40 mg HS PO Last administered on 08/14/16 20:17 ; Admin Dose 40 MG; Start 08/01/16 at 21:00 Calcitriol (Rocaltrol) 0.25 mcg DAILY PO Last administered on 08/15/16 08:58; Admin Dose 0.25 MCG; Start 08/01/16 at 09:00 Calcium/Vitamin D (Oyster Shell/ Vit-D (500/200)) 1 tab BID PO Last administered on 08/15/16 08:59; Admin Dose 1 TAB; Start 08/01/16 at 09:00 Hydralazine HCl (Apresoline) 50 mg Q8 PO Last administered on 08/14/16 22:08; Admin Dose 50 MG; Start 08/01/16 at 06:00 Metoprolol Tartrate (Lopressor) 25 mg BID PO Last administered on 08/15/16 08: 58; Admin Dose 25 MG; Start 08/01/16 at 09:00 Paroxetine HCl (Paxil) 10 mg DAILY PO Last administered on 08/15/16 09:01; Admin Dose 10 MG; Start 08/01/16 at 09:00 Acetaminophen (Tylenol Tab) 650 mg Q4H PRN PO PAIN AND OR ELEVATED TEMP Last administered on 08/14/16 22:09; Admin Dose 650 MG; Start 08/01/16 at 00:30 Hydralazine HCl (Apresoline) 20 mg Q6H PRN IV ELEVATED BLOOD PRESSURE Last administered on 08/09/16 03:50; Admin Dose 20 MG; Start 08/01/16 at 00:30 Guaifenesin/ Dextromethorphan (Robitussin Dm Liquid Cup) 10 ml Q4H PRN PO COUGH Last administered on 08/10/16 09:37; Admin Dose 10 ML; Start 08/01/16 at 00:30 Heparin Sodium (Porcine) (Heparin (5000 Units/0.5 ml)) 5,000 unit BID SC Last administered on 08/04/16 08:55; Admin Dose 5,000 UNIT; Start 08/01/16 at 09:00 ; Status Future Hold Epoetin Braden (Epogen (Esrd)) 6,000 units MoWeFr@17 SC Last administered on 12:31; Admin Dose 6,000 UNITS; Start 08/02/16 at 17:00 Miscellaneous Information 1 ea NOTE XX ; Start 08/02/16 at 12:30 Linagliptin (Tradjenta) 5 mg DAILY PO Last administered on 08/15/16 08:58; Admin Dose 5 MG; Start 08/04/16 at 20:00 Salmeterol Xinafoate/ Fluticasone (Advair 250/50 Diskus) 1 inh BID INH Last administered on 08/15/16 12:41; Admin Dose 1 INH; Start 08/08/16 at 11:00 Montelukast Sodium (Singulair) 10 mg HS PO Last administered on 08/14/16 20:17 ; Admin Dose 10 MG; Start 08/08/16 at 21:00 Tiotropium [place] 1 inh 1 inh DAILY INH Last administered on 08/15/16 08:59; Admin Dose 1 INH; Start 08/08/16 at 11:00 Piperacillin Sod/ Tazobactam Sod (Zosyn 2.25gm/ 50ml (Pmx)) 50 ml @ 100 mls/hr Q8 IVPB Last administered on 08/15/16 14:43; Admin Dose 100 MLS/HR; Start at 14:00 Diltiazem HCl (Cardizem Cd) 180 mg DAILY PO Last administered on 08/15/16 08:58 ; Admin Dose 180 MG; Start 08/11/16 at 09:00 Miscellaneous Information Discontinue all previ... PROTOCOL XX ; Start 08/12/16 at 22:30; Stop 08/15/16 at 22:29; Status UNV Dextrose/Sodium Chloride (D5-1/2ns) 1,000 ml @ 50 mls/hr Q20H IV Last administered on 08/15/16 11:19; Admin Dose 50 MLS/HR; Start 08/13/16 at 11:30 Insulin Aspart (Novolog Insulin Pen) NOVOLOG *MILD* ALGORI... Q4 SC Last administered on 08/15/16 12:36; Admin Dose 1 UNIT; Start 08/13/16 at 21:00 Miscellaneous Information 1 ea NOTE XX ; Start 08/13/16 at 17:30 Glucose (Glutose) 15 gm Q15M PRN PO DECREASED GLUCOSE; Start 08/13/16 at 17:30 Glucose (Glutose) 22.5 gm Q15M PRN PO DECREASED GLUCOSE; Start 08/13/16 at 17:30 Dextrose (D50w Syringe) 25 ml Q15M PRN IV DECREASED GLUCOSE; Start 08/13/16 at 17:30 Dextrose (D50w Syringe) 50 ml Q15M PRN IV DECREASED GLUCOSE; Start 08/13/16 at 17:30 Glucagon (Glucagen) 1 mg Q15M PRN IM DECREASED GLUCOSE; Start 08/13/16 at 17:30 Glucose (Glutose) 15 gm Q15M PRN BUCCAL DECREASED GLUCOSE; Start 08/13/16 at 17: 30 Miscellaneous Information RANDOM VANCOMYCIN LEVEL 4... ONCE ONCE XX ; Start 02/22 at 05:00; Stop 08/16/16 at 05:01 Amiodarone HCl/ Dextrose (Cordarone Iv/ D5W) 500 ml @ 0 mls/hr Q0M IV Last administered on 08/15/16 14:52; Admin Dose 33.4 MLS/HR; Start 08/15/16 at 14:30; Stop 08/16/16 at 14:29 YAMILETH COLLINS MD Aug 15, 2016 15:52
--- NOTE | 2016-08-15 19:28 | CONS ---
Date/Time of Note Date/Time of Note DATE: 08/15/16 TIME: 19:25 Assessment/Plan Assessment/Plan Chief Complaint/Hosp Course ID PROGRESS NOTE CURRENT ABX=> Vanco IV + Zosyn 24H INTERVAL SUMMARY * Awake, alert, responsive, smiling -- feeling much better, NGT secure, no fevers, WBC down today * Family visiting --Resting comfortably on supplemental O2 via NC * THORA FLUID (+)GNR 08/15/16 0510 08/15/16 0458 PHYSICAL EXAMINATION: GENERAL: VSS, NAD, Afebrile HEENT: Unremarkable (+)NGT NECK: Supple, trachea midline. CHEST: Rise symmetrical, without dyspnea on observation HEART: Pulse RRR ABDOMEN: Soft EXTREMITIES: Warm ID ASSESSMENT 85 yo F admit with: 1. 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 Aute hypoxemic respiratory failure. 3. Pneumonia w/Bilateral pleural effusions. * THORA (+)GNR seen on gram stain -> Final micro pending 4. History of recent femoral catheter removal. 5. End-stage renal disease, hemodialysis dependent. 6. History of pancreatic stent placement. 7. Diabetes. (-)MRSA Nares INVASIVES: PIV, R-Chest PermCath ABX ALLERGY: Iodine CURRENT ABX: => Vanco IV + Zosyn ID RECOMMENDATIONS 1. Continue current ABX 2. Observe over the weekend on ABX -> Reassess by ID team next week 3. Thora (+)GNR == follow up on final micro pending Ilia: 08/13/16-1110 Rcvd: 08/14/16-1322 Source: [facility] Sp Descrip: Procedure Result Microbiology GRAM STAIN Final POLYMORPH. LEUKOCYTE 2+ GRAM NEGATIVE RODS RARE . Problems: Consultation Date/Type/Reason Admit Date/Time Jul 31, 2016 at 19:59 Initial Consult Date 08/13/16 Type of Consultation: id Referring Provider: LALA ORO Exam/Review of Systems Vital Signs Vitals Vital Signs Date Time Temp Pulse Resp B/P Pulse Ox O2 Delivery O2 Flow Rate FiO2 08/15/16 17:30 88 18 141/60 93 08/15/16 16:23 3 08/15/16 16:15 98.6 08/15/16 14:12 Nasal Cannula 08/14/16 04:49 33 Intake and Output 08/14/16 08/14/16 08/15/16 15:00 23:00 07:00 Intake Total 645 ml 705 ml 450 ml Output Total 700 ml 0 ml Balance -55 ml 705 ml 450 ml Results Result Diagram: 08/15/16 0510 08/15/16 0458 Results 24 hrs Laboratory Tests Test 08/14/16 20:27 08/15/16 01:04 08/15/16 04:49 08/15/16 04:58 Bedside Glucose 118 83 149 Sodium Level 134 L Potassium Level 4.1 Chloride Level 96 L Carbon Dioxide Level 23 Anion Gap 19 H Blood Urea Nitrogen 80 H Creatinine 4.70 H Glucose Level 105 # Calcium Level 7.5 L Phosphorus Level 7.6 #H Total Bilirubin 0.3 Direct Bilirubin 0.00 Indirect Bilirubin 0.3 Aspartate Amino Transf (AST/SGOT) 17 Alanine Aminotransferase (ALT/SGPT) 18 Alkaline Phosphatase 70 Total Protein 5.0 L Albumin 2.4 L Globulin 2.60 Albumin/Globulin Ratio 0.92 Test 08/15/16 05:10 08/15/16 07:55 08/15/16 12:29 08/15/16 17:09 White Blood Count 17.4 #H Red Blood Count 3.08 L Hemoglobin 9.2 L Hematocrit 28.9 L Mean Corpuscular Volume 93.8 Mean Corpuscular Hemoglobin 29.9 Mean Corpuscular Hemoglobin Concent 31.8 L Red Cell Distribution Width 15.1 H Platelet Count 175 Mean Platelet Volume 10.7 H Neutrophils % 94.6 H Lymphocytes % 1.3 L Monocytes % 2.0 Eosinophils % 0.0 Basophils % 0.1 Nucleated Red Blood Cells % 0.5 H Neutrophils # 16.4 H Lymphocytes # 0.2 L Monocytes # 0.4 Eosinophils # 0.0 Basophils # 0.0 Nucleated Red Blood Cells # 0.1 H Bedside Glucose 103 156 176 Medications Medications Current Medications Atorvastatin Calcium (Lipitor) 40 mg HS PO Last administered on 08/14/16 20:17 ; Admin Dose 40 MG; Start 08/01/16 at 21:00 Calcitriol (Rocaltrol) 0.25 mcg DAILY PO Last administered on 08/15/16 08:58; Admin Dose 0.25 MCG; Start 08/01/16 at 09:00 Calcium/Vitamin D (Oyster Shell/ Vit-D (500/200)) 1 tab BID PO Last administered on 08/15/16 08:59; Admin Dose 1 TAB; Start 08/01/16 at 09:00 Hydralazine HCl (Apresoline) 50 mg Q8 PO Last administered on 08/15/16 15:59; Admin Dose 50 MG; Start 08/01/16 at 06:00 Metoprolol Tartrate (Lopressor) 25 mg BID PO Last administered on 08/15/16 08: 58; Admin Dose 25 MG; Start 08/01/16 at 09:00 Paroxetine HCl (Paxil) 10 mg DAILY PO Last administered on 08/15/16 09:01; Admin Dose 10 MG; Start 08/01/16 at 09:00 Acetaminophen (Tylenol Tab) 650 mg Q4H PRN PO PAIN AND OR ELEVATED TEMP Last administered on 08/14/16 22:09; Admin Dose 650 MG; Start 08/01/16 at 00:30 Hydralazine HCl (Apresoline) 20 mg Q6H PRN IV ELEVATED BLOOD PRESSURE Last administered on 08/09/16 03:50; Admin Dose 20 MG; Start 08/01/16 at 00:30 Guaifenesin/ Dextromethorphan (Robitussin Dm Liquid Cup) 10 ml Q4H PRN PO COUGH Last administered on 08/10/16 09:37; Admin Dose 10 ML; Start 08/01/16 at 00:30 Heparin Sodium (Porcine) (Heparin (5000 Units/0.5 ml)) 5,000 unit BID SC Last administered on 08/04/16 08:55; Admin Dose 5,000 UNIT; Start 08/01/16 at 09:00 ; Status Future Hold Epoetin Braden (Epogen (Esrd)) 6,000 units MoWeFr@17 SC Last administered on 12:31; Admin Dose 6,000 UNITS; Start 08/02/16 at 17:00 Miscellaneous Information 1 ea NOTE XX ; Start 08/02/16 at 12:30 Linagliptin (Tradjenta) 5 mg DAILY PO Last administered on 08/15/16 08:58; Admin Dose 5 MG; Start 08/04/16 at 20:00 Salmeterol Xinafoate/ Fluticasone (Advair 250/50 Diskus) 1 inh BID INH Last administered on 08/15/16 12:41; Admin Dose 1 INH; Start 08/08/16 at 11:00 Montelukast Sodium (Singulair) 10 mg HS PO Last administered on 08/14/16 20:17 ; Admin Dose 10 MG; Start 08/08/16 at 21:00 Tiotropium [place] 1 inh 1 inh DAILY INH Last administered on 08/15/16 08:59; Admin Dose 1 INH; Start 08/08/16 at 11:00 Piperacillin Sod/ Tazobactam Sod (Zosyn 2.25gm/ 50ml (Pmx)) 50 ml @ 100 mls/hr Q8 IVPB Last administered on 08/15/16 14:43; Admin Dose 100 MLS/HR; Start at 14:00 Diltiazem HCl (Cardizem Cd) 180 mg DAILY PO Last administered on 08/15/16 08:58 ; Admin Dose 180 MG; Start 08/11/16 at 09:00 Miscellaneous Information Discontinue all previ... PROTOCOL XX ; Start 08/12/16 at 22:30; Stop 08/15/16 at 22:29; Status UNV Dextrose/Sodium Chloride (D5-1/2ns) 1,000 ml @ 50 mls/hr Q20H IV Last administered on 08/15/16 11:19; Admin Dose 50 MLS/HR; Start 08/13/16 at 11:30 Insulin Aspart (Novolog Insulin Pen) NOVOLOG *MILD* ALGORI... Q4 SC Last administered on 08/15/16 17:12; Admin Dose 1 UNIT; Start 08/13/16 at 21:00 Miscellaneous Information 1 ea NOTE XX ; Start 08/13/16 at 17:30 Glucose (Glutose) 15 gm Q15M PRN PO DECREASED GLUCOSE; Start 08/13/16 at 17:30 Glucose (Glutose) 22.5 gm Q15M PRN PO DECREASED GLUCOSE; Start 08/13/16 at 17:30 Dextrose (D50w Syringe) 25 ml Q15M PRN IV DECREASED GLUCOSE; Start 08/13/16 at 17:30 Dextrose (D50w Syringe) 50 ml Q15M PRN IV DECREASED GLUCOSE; Start 08/13/16 at 17:30 Glucagon (Glucagen) 1 mg Q15M PRN IM DECREASED GLUCOSE; Start 08/13/16 at 17:30 Glucose (Glutose) 15 gm Q15M PRN BUCCAL DECREASED GLUCOSE; Start 08/13/16 at 17: 30 Miscellaneous Information RANDOM VANCOMYCIN LEVEL 4... ONCE ONCE XX ; Start 02/22 at 05:00; Stop 08/16/16 at 05:01 Amiodarone HCl/ Dextrose (Cordarone Iv/ D5W) 500 ml @ 0 mls/hr Q0M IV Last administered on 08/15/16 14:52; Admin Dose 33.4 MLS/HR; Start 08/15/16 at 14:30; Stop 08/16/16 at 14:29 EBONI WEINBERG NP Aug 15, 2016 19:28
[2016-08-15] MEDS: MONTELUKAST 10 MG TAB PO SCH (20:59)
[2016-08-15] MEDS: ATORVASTATIN 40 MG TAB PO SCH (20:59)
--- NOTE | 2016-08-15 22:32 | CONS ---
Date/Time of Note Date/Time of Note DATE: 08/15/16 TIME: 22:31 Assessment/Plan Assessment/Plan Chief Complaint/Hosp Course IMPRESSION: 1. End-stage renal disease stage V. 2. Fluid overload.better 3. Pulmonary edema./pleural effusion/lung infilterate 4. Anemia of chronic kidney disease. 5. History of diabetes mellitus. 6. 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 7. AV fistula on the left upper extremity. 8 pneumonia/bronchites 9 thoracentesis s/p plan continue hd fluis res antibiotic Problems: Consultation Date/Type/Reason Admit Date/Time Jul 31, 2016 at 19:59 Initial Consult Date 08/01/16 Type of Consultation: renal Referring Provider: LALA ORO 24 HR Interval Summary Subjective hx not possible: other (sob better) Exam/Review of Systems Vital Signs Vitals Vital Signs Date Time Temp Pulse Resp B/P Pulse Ox O2 Delivery O2 Flow Rate FiO2 08/15/16 20:47 3.0 08/15/16 20:37 98 08/15/16 20:35 94 19 Nasal Cannula 08/15/16 20:30 120/66 08/15/16 19:00 98.0 08/14/16 04:49 33 Intake and Output 08/14/16 08/14/16 08/15/16 15:00 23:00 07:00 Intake Total 645 ml 705 ml 450 ml Output Total 700 ml 0 ml Balance -55 ml 705 ml 450 ml Exam Neck: supple Respiratory: diminished breath sounds Cardiovascular: regular rate and rhythm Gastrointestinal: bowel sounds (+), non-tender, soft Extremities: edema (tr) Results Result Diagram: 08/15/16 0510 08/15/16 0458 Results 24 hrs Laboratory Tests Test 08/15/16 01:04 08/15/16 04:49 08/15/16 04:58 08/15/16 05:10 Bedside Glucose 83 149 Sodium Level 134 L Potassium Level 4.1 Chloride Level 96 L Carbon Dioxide Level 23 Anion Gap 19 H Blood Urea Nitrogen 80 H Creatinine 4.70 H Glucose Level 105 # Calcium Level 7.5 L Phosphorus Level 7.6 #H Total Bilirubin 0.3 Direct Bilirubin 0.00 Indirect Bilirubin 0.3 Aspartate Amino Transf (AST/SGOT) 17 Alanine Aminotransferase (ALT/SGPT) 18 Alkaline Phosphatase 70 Total Protein 5.0 L Albumin 2.4 L Globulin 2.60 Albumin/Globulin Ratio 0.92 White Blood Count 17.4 #H Red Blood Count 3.08 L Hemoglobin 9.2 L Hematocrit 28.9 L Mean Corpuscular Volume 93.8 Mean Corpuscular Hemoglobin 29.9 Mean Corpuscular Hemoglobin Concent 31.8 L Red Cell Distribution Width 15.1 H Platelet Count 175 Mean Platelet Volume 10.7 H Neutrophils % 94.6 H Lymphocytes % 1.3 L Monocytes % 2.0 Eosinophils % 0.0 Basophils % 0.1 Nucleated Red Blood Cells % 0.5 H Neutrophils # 16.4 H Lymphocytes # 0.2 L Monocytes # 0.4 Eosinophils # 0.0 Basophils # 0.0 Nucleated Red Blood Cells # 0.1 H Test 08/15/16 07:55 08/15/16 12:29 08/15/16 17:09 08/15/16 21:00 Bedside Glucose 103 156 176 164 Medications Medications Current Medications Atorvastatin Calcium (Lipitor) 40 mg HS PO Last administered on 08/15/16 20:59 ; Admin Dose 40 MG; Start 08/01/16 at 21:00 Calcitriol (Rocaltrol) 0.25 mcg DAILY PO Last administered on 08/15/16 08:58; Admin Dose 0.25 MCG; Start 08/01/16 at 09:00 Calcium/Vitamin D (Oyster Shell/ Vit-D (500/200)) 1 tab BID PO Last administered on 08/15/16 20:59; Admin Dose 1 TAB; Start 08/01/16 at 09:00 Hydralazine HCl (Apresoline) 50 mg Q8 PO Last administered on 08/15/16 15:59; Admin Dose 50 MG; Start 08/01/16 at 06:00 Metoprolol Tartrate (Lopressor) 25 mg BID PO Last administered on 08/15/16 08: 58; Admin Dose 25 MG; Start 08/01/16 at 09:00 Paroxetine HCl (Paxil) 10 mg DAILY PO Last administered on 08/15/16 09:01; Admin Dose 10 MG; Start 08/01/16 at 09:00 Acetaminophen (Tylenol Tab) 650 mg Q4H PRN PO PAIN AND OR ELEVATED TEMP Last administered on 08/14/16 22:09; Admin Dose 650 MG; Start 08/01/16 at 00:30 Hydralazine HCl (Apresoline) 20 mg Q6H PRN IV ELEVATED BLOOD PRESSURE Last administered on 08/09/16 03:50; Admin Dose 20 MG; Start 08/01/16 at 00:30 Guaifenesin/ Dextromethorphan (Robitussin Dm Liquid Cup) 10 ml Q4H PRN PO COUGH Last administered on 08/10/16 09:37; Admin Dose 10 ML; Start 08/01/16 at 00:30 Heparin Sodium (Porcine) (Heparin (5000 Units/0.5 ml)) 5,000 unit BID SC Last administered on 08/04/16 08:55; Admin Dose 5,000 UNIT; Start 08/01/16 at 09:00 ; Status Future Hold Epoetin Braden (Epogen (Esrd)) 6,000 units MoWeFr@17 SC Last administered on 12:31; Admin Dose 6,000 UNITS; Start 08/02/16 at 17:00 Miscellaneous Information 1 ea NOTE XX ; Start 08/02/16 at 12:30 Linagliptin (Tradjenta) 5 mg DAILY PO Last administered on 08/15/16 08:58; Admin Dose 5 MG; Start 08/04/16 at 20:00 Salmeterol Xinafoate/ Fluticasone (Advair 250/50 Diskus) 1 inh BID INH Last administered on 08/15/16 20:59; Admin Dose 1 INH; Start 08/08/16 at 11:00 Montelukast Sodium (Singulair) 10 mg HS PO Last administered on 08/15/16 20:59 ; Admin Dose 10 MG; Start 08/08/16 at 21:00 Tiotropium [place] 1 inh 1 inh DAILY INH Last administered on 08/15/16 08:59; Admin Dose 1 INH; Start 08/08/16 at 11:00 Piperacillin Sod/ Tazobactam Sod (Zosyn 2.25gm/ 50ml (Pmx)) 50 ml @ 100 mls/hr Q8 IVPB Last administered on 08/15/16 14:43; Admin Dose 100 MLS/HR; Start at 14:00 Diltiazem HCl (Cardizem Cd) 180 mg DAILY PO Last administered on 08/15/16 08:58 ; Admin Dose 180 MG; Start 08/11/16 at 09:00 Miscellaneous Information Discontinue all previ... PROTOCOL XX ; Start 08/12/16 at 22:30; Stop 08/15/16 at 22:29; Status UNV Dextrose/Sodium Chloride (D5-1/2ns) 1,000 ml @ 50 mls/hr Q20H IV Last administered on 08/15/16 11:19; Admin Dose 50 MLS/HR; Start 08/13/16 at 11:30 Insulin Aspart (Novolog Insulin Pen) NOVOLOG *MILD* ALGORI... Q4 SC Last administered on 08/15/16 21:07; Admin Dose 1 UNIT; Start 08/13/16 at 21:00 Miscellaneous Information 1 ea NOTE XX ; Start 08/13/16 at 17:30 Glucose (Glutose) 15 gm Q15M PRN PO DECREASED GLUCOSE; Start 08/13/16 at 17:30 Glucose (Glutose) 22.5 gm Q15M PRN PO DECREASED GLUCOSE; Start 08/13/16 at 17:30 Dextrose (D50w Syringe) 25 ml Q15M PRN IV DECREASED GLUCOSE; Start 08/13/16 at 17:30 Dextrose (D50w Syringe) 50 ml Q15M PRN IV DECREASED GLUCOSE; Start 08/13/16 at 17:30 Glucagon (Glucagen) 1 mg Q15M PRN IM DECREASED GLUCOSE; Start 08/13/16 at 17:30 Glucose (Glutose) 15 gm Q15M PRN BUCCAL DECREASED GLUCOSE; Start 08/13/16 at 17: 30 Miscellaneous Information RANDOM VANCOMYCIN LEVEL 4... ONCE ONCE XX ; Start 02/22 at 05:00; Stop 08/16/16 at 05:01 Amiodarone HCl/ Dextrose (Cordarone Iv/ D5W) 500 ml @ 0 mls/hr Q0M IV Last administered on 08/15/16 14:52; Admin Dose 33.4 MLS/HR; Start 08/15/16 at 14:30; Stop 08/16/16 at 14:29 DAT OLSON MD Aug 15, 2016 22:32
[2016-08-16] VITALS (12 sets, daily range): BP systolic 117–125; BP diastolic 56–70; PULSE 80–114; RESP 15–24
[2016-08-16] MEDS: INSULIN ASPART [NOVOLOG] 3 ML PEN SC SCH ×6 (02:24→21:26)
[2016-08-16] MEDS: ALBUTEROL/IPRATROPIUM (NEB) 3 ML AMP HHN SCH ×4 (02:26→19:40)
[2016-08-16] MEDS: PIPER-TAZO 2.25 GM (PMX) 50 ML IVPB SCH ×4 (05:35→22:16)
[2016-08-16] MEDS: FUROSEMIDE 40 MG INJ IV SCH ×2 (05:41→17:21)
[2016-08-16 07:09] LABS: ADD SCAN DIFF NO
[2016-08-16 07:15] LABS: ABNORMAL IP MESSAGE 1; BASOPHILS % 0.1 % (0.0-2.0); HEMATOCRIT 33.1 % (37.0-47.0); HEMOGLOBIN 9.8 g/dl (12.0-16.0); LYMPHOCYTES # 0.2 10^3/ul (0.8-2.9); LYMPHOCYTES % 1.2 % (15.0-51.0); MEAN CORPUSCULAR HEMOGLOBIN 28.7 pg (29.0-33.0); MEAN CORPUSCULAR HGB CONC 29.6 g/dl (32.0-37.0); MEAN CORPUSCULAR VOLUME 96.8 fl (82.0-101.0); MONOCYTE # 0.4 10^3/ul (0.3-0.9); NEUTROPHIL # 18.7 10^3/ul (1.6-7.5); NEUTROPHILS % 94.8 % (39.0-77.0); NUCLEATED RED BLOOD CELLS # 0.1 10^3/ul (0.0-0.0); NUCLEATED RED BLOOD CELLS% 0.3 /100WBC (0.0-0.0); PLATELET COUNT 171 10^3/UL (140-415); RED BLOOD COUNT 3.42 10^6/ul (4.20-5.40); RED CELL DISTRIBUTION WIDTH 15.3 % (11.5-14.5); WHITE BLOOD COUNT 19.7 10^3/ul (4.8-10.8)
[2016-08-16 07:29] LABS: ALBUMIN 2.8 g/dl (3.3-4.9)
[2016-08-16 07:32] LABS: BILIRUBIN,INDIRECT 0.3 mg/dl (0-1.1); BILIRUBIN,TOTAL 0.3 mg/dl (0.2-1.3); CREATININE 3.69 mg/dl (0.44-1.00); TOTAL PROTEIN 5.6 g/dl (6.1-8.1)
[2016-08-16] MEDS: CALCIUM ACETATE 667 MG CAP PO SCH ×3 (07:55→17:21)
[2016-08-16] MEDS: DILTIAZEM (CD) 180 MG CAP PO SCH (09:02)
[2016-08-16] MEDS: TIOTROPIUM 18 MCG CAPSULE INHA DEV INH SCH (09:02)
[2016-08-16] MEDS: SALMETEROL/FLUTICASONE 250/50 INHA INH SCH ×2 (09:02→21:12)
[2016-08-16] MEDS: PAROXETINE 10 MG TAB PO SCH (09:03)
[2016-08-16] MEDS: CALCITRIOL 0.25 MCG CAP PO SCH (09:03)
[2016-08-16] MEDS: CALCIUM/VITAMIN D (500/200) TAB PO SCH ×2 (09:03→21:12)
[2016-08-16] MEDS: METOPROLOL 25 MG TAB PO SCH ×2 (09:03→21:21)
[2016-08-16] MEDS: LINAGLIPTIN 5 MG TABLET PO SCH (09:03)
[2016-08-16] MEDS: DEXTROSE 5%-0.45% NACL 1,000 ML IV SCH ×2 (09:05→19:30)
[2016-08-16] MEDS: VANCOMYCIN 1 GM in NS 250 ML IVPB SCH (12:01)
--- NOTE | 2016-08-16 13:02 | CONS ---
Date/Time of Note Date/Time of Note DATE: 08/16/16 TIME: 13:01 Assessment/Plan Assessment/Plan Additional Assessment/Plan Acute exacerbation of CHF Atrial fibrillation Pleural effusion s/p thoracentesis ESRD on HD Hypertension Diabetes Dyslipidemia Anemia Leucocytosis Atrial fibrillation - rate controlled Heart failure clinically compensated Continue amiodarone Continue HD as scheduled Continue Antibiotics Continue Metoprolol Continue Tradjenta Continue Lipitor Started on Eliquis Consultation Date/Type/Reason Admit Date/Time Jul 31, 2016 at 19:59 Initial Consult Date 08/13/16 Type of Consultation: renal Referring Provider: LALA ORO Exam/Review of Systems Vital Signs Vitals Vital Signs Date Time Temp Pulse Resp B/P Pulse Ox O2 Delivery O2 Flow Rate FiO2 08/16/16 12:20 97.6 89 24 122/64 95 08/16/16 08:30 Nasal Cannula 2.0 08/14/16 04:49 33 Intake and Output 08/15/16 08/15/16 08/16/16 15:00 23:00 07:00 Intake Total 1083.4 ml 1016.8 ml 574.6 ml Output Total 4300 ml Balance -3216.6 ml 1016.8 ml 574.6 ml Exam Head: atraumatic, normocephalic Neck: supple Respiratory: diminished breath sounds Cardiovascular: irregular rhythm Gastrointestinal: nl liver, spleen, non-tender, soft Extremities: normal pulses Results Result Diagram: 08/16/16 0636 08/16/16 0639 Results 24 hrs Laboratory Tests Test 08/15/16 17:09 08/15/16 21:00 08/16/16 02:19 08/16/16 05:28 Bedside Glucose 176 164 143 168 Test 08/16/16 06:36 08/16/16 06:39 08/16/16 08:08 08/16/16 12:14 White Blood Count 19.7 H Red Blood Count 3.42 L Hemoglobin 9.8 L Hematocrit 33.1 L Mean Corpuscular Volume 96.8 Mean Corpuscular Hemoglobin 28.7 L Mean Corpuscular Hemoglobin Concent 29.6 L Red Cell Distribution Width 15.3 H Platelet Count 171 Mean Platelet Volume 11.0 H Neutrophils % 94.8 H Lymphocytes % 1.2 L Monocytes % 2.0 Eosinophils % 0.0 Basophils % 0.1 Nucleated Red Blood Cells % 0.3 H Neutrophils # 18.7 H Lymphocytes # 0.2 L Monocytes # 0.4 Eosinophils # 0.0 Basophils # 0.0 Nucleated Red Blood Cells # 0.1 H Random Vancomycin Level 14.4 Sodium Level 137 Potassium Level 4.0 Chloride Level 99 Carbon Dioxide Level 23 Anion Gap 19 H Blood Urea Nitrogen 48 #H Creatinine 3.69 #H Glucose Level 305 #H Calcium Level 8.0 L Phosphorus Level 5.5 #H Total Bilirubin 0.3 Direct Bilirubin 0.00 Indirect Bilirubin 0.3 Aspartate Amino Transf (AST/SGOT) 15 Alanine Aminotransferase (ALT/SGPT) 20 Alkaline Phosphatase 94 Total Protein 5.6 L Albumin 2.8 L Globulin 2.80 Albumin/Globulin Ratio 1.00 Bedside Glucose 169 169 Medications Medications Current Medications Atorvastatin Calcium (Lipitor) 40 mg HS PO Last administered on 08/15/16 20:59 ; Admin Dose 40 MG; Start 08/01/16 at 21:00 Calcitriol (Rocaltrol) 0.25 mcg DAILY PO Last administered on 08/16/16 09:03; Admin Dose 0.25 MCG; Start 08/01/16 at 09:00 Calcium/Vitamin D (Oyster Shell/ Vit-D (500/200)) 1 tab BID PO Last administered on 08/16/16 09:03; Admin Dose 1 TAB; Start 08/01/16 at 09:00 Hydralazine HCl (Apresoline) 50 mg Q8 PO Last administered on 08/16/16 05:41; Admin Dose 50 MG; Start 08/01/16 at 06:00 Metoprolol Tartrate (Lopressor) 25 mg BID PO Last administered on 08/16/16 09: 03; Admin Dose 25 MG; Start 08/01/16 at 09:00 Paroxetine HCl (Paxil) 10 mg DAILY PO Last administered on 08/16/16 09:03; Admin Dose 10 MG; Start 08/01/16 at 09:00 Acetaminophen (Tylenol Tab) 650 mg Q4H PRN PO PAIN AND OR ELEVATED TEMP Last administered on 08/14/16 22:09; Admin Dose 650 MG; Start 08/01/16 at 00:30 Hydralazine HCl (Apresoline) 20 mg Q6H PRN IV ELEVATED BLOOD PRESSURE Last administered on 08/09/16 03:50; Admin Dose 20 MG; Start 08/01/16 at 00:30 Guaifenesin/ Dextromethorphan (Robitussin Dm Liquid Cup) 10 ml Q4H PRN PO COUGH Last administered on 08/10/16 09:37; Admin Dose 10 ML; Start 08/01/16 at 00:30 Heparin Sodium (Porcine) (Heparin (5000 Units/0.5 ml)) 5,000 unit BID SC Last administered on 08/04/16 08:55; Admin Dose 5,000 UNIT; Start 08/01/16 at 09:00 ; Status Future Hold Epoetin Braden (Epogen (Esrd)) 6,000 units MoWeFr@17 SC Last administered on 12:31; Admin Dose 6,000 UNITS; Start 08/02/16 at 17:00 Miscellaneous Information 1 ea NOTE XX ; Start 08/02/16 at 12:30 Linagliptin (Tradjenta) 5 mg DAILY PO Last administered on 08/16/16 09:03; Admin Dose 5 MG; Start 08/04/16 at 20:00 Salmeterol Xinafoate/ Fluticasone (Advair 250/50 Diskus) 1 inh BID INH Last administered on 08/16/16 09:02; Admin Dose 1 INH; Start 08/08/16 at 11:00 Montelukast Sodium (Singulair) 10 mg HS PO Last administered on 08/15/16 20:59 ; Admin Dose 10 MG; Start 08/08/16 at 21:00 Tiotropium [place] 1 inh 1 inh DAILY INH Last administered on 08/16/16 09:02; Admin Dose 1 INH; Start 08/08/16 at 11:00 Piperacillin Sod/ Tazobactam Sod (Zosyn 2.25gm/ 50ml (Pmx)) 50 ml @ 100 mls/hr Q8 IVPB Last administered on 08/16/16 06:21; Admin Dose 100 MLS/HR; Start 08/10 at 14:00 Diltiazem HCl (Cardizem Cd) 180 mg DAILY PO Last administered on 08/16/16 09: 02; Admin Dose 180 MG; Start 08/11/16 at 09:00 Miscellaneous Information Discontinue all previ... PROTOCOL XX ; Start 08/12/16 at 22:30; Stop 08/15/16 at 22:29; Status UNV Dextrose/Sodium Chloride (D5-1/2ns) 1,000 ml @ 50 mls/hr Q20H IV Last administered on 08/16/16 09:05; Admin Dose 50 MLS/HR; Start 08/13/16 at 11:30 Insulin Aspart (Novolog Insulin Pen) NOVOLOG *MILD* ALGORI... Q4 SC Last administered on 08/16/16 09:06; Admin Dose 1 UNIT; Start 08/13/16 at 21:00 Miscellaneous Information 1 ea NOTE XX ; Start 08/13/16 at 17:30 Glucose (Glutose) 15 gm Q15M PRN PO DECREASED GLUCOSE; Start 08/13/16 at 17:30 Glucose (Glutose) 22.5 gm Q15M PRN PO DECREASED GLUCOSE; Start 08/13/16 at 17:30 Dextrose (D50w Syringe) 25 ml Q15M PRN IV DECREASED GLUCOSE; Start 08/13/16 at 17:30 Dextrose (D50w Syringe) 50 ml Q15M PRN IV DECREASED GLUCOSE; Start 08/13/16 at 17:30 Glucagon (Glucagen) 1 mg Q15M PRN IM DECREASED GLUCOSE; Start 08/13/16 at 17:30 Glucose 15 gm 15 gm Q15M PRN BUCCAL DECREASED GLUCOSE; Start 08/13/16 at 17:30 Amiodarone HCl 900 mg/Dextrose 500 ml @ 0 mls/hr Q0M IV Last administered on 14:52; Admin Dose 33.4 MLS/HR; Start 08/15/16 at 14:30; Stop 08/16/16 at 14:29 Vancomycin HCl (Vancocin) 250 ml @ 125 mls/hr Q96H IVPB Last administered on 12:01; Admin Dose 125 MLS/HR; Start 08/16/16 at 10:00 FRAN LÓPEZ M.D. Aug 16, 2016 13:02
--- NOTE | 2016-08-16 13:08 | CONS ---
Date/Time of Note Date/Time of Note DATE: 08/16/16 TIME: 13:06 Assessment/Plan Assessment/Plan Additional Assessment/Plan Assessment recommendations; next 1. Patient admitted for bilateral pneumonia with significant clinical improvement. 2. Status post right thoracentesis. 3. End-stage renal disease on hemodialysis. Continue current supportive care. Patient responding well to current treatment regimen. Consultation Date/Type/Reason Admit Date/Time Jul 31, 2016 at 19:59 Initial Consult Date 08/06/16 Type of Consultation: Pulmonary Referring Provider: LALA ORO 24 HR Interval Summary Free Text/Dictation Patient condition is improved. Reports decreased shortness of breath. Denies any wheezing, chest pain, sputum production. General exam; elderly lady, awake alert currently in no distress. Exam/Review of Systems Vital Signs Vitals Vital Signs Date Time Temp Pulse Resp B/P Pulse Ox O2 Delivery O2 Flow Rate FiO2 08/16/16 12:20 97.6 89 24 122/64 95 08/16/16 08:30 Nasal Cannula 2.0 08/14/16 04:49 33 Intake and Output 08/15/16 08/15/16 08/16/16 15:00 23:00 07:00 Intake Total 1083.4 ml 1016.8 ml 574.6 ml Output Total 4300 ml Balance -3216.6 ml 1016.8 ml 574.6 ml Exam HEENT exam; supple neck, no JVD. No lymphadenopathy. Midline trachea. No thyromegaly. Pharynx is clear. Patient wears dentures. Has bilateral intraocular lens implants. Chest examination AK: Diminished but clear breath sounds bilaterally. S1-S2 audible, no murmurs. Regular rhythm. Abdomen examination; soft, nondistended. No organomegaly. Bowel sounds audible. Extremity exam is; no peripheral edema. Pulses 1+ bilaterally. 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 Results Result Diagram: 08/16/16 0636 08/16/16 0639 Results 24 hrs Laboratory Tests Test 08/15/16 17:09 08/15/16 21:00 08/16/16 02:19 08/16/16 05:28 Bedside Glucose 176 164 143 168 Test 08/16/16 06:36 08/16/16 06:39 08/16/16 08:08 08/16/16 12:14 White Blood Count 19.7 H Red Blood Count 3.42 L Hemoglobin 9.8 L Hematocrit 33.1 L Mean Corpuscular Volume 96.8 Mean Corpuscular Hemoglobin 28.7 L Mean Corpuscular Hemoglobin Concent 29.6 L Red Cell Distribution Width 15.3 H Platelet Count 171 Mean Platelet Volume 11.0 H Neutrophils % 94.8 H Lymphocytes % 1.2 L Monocytes % 2.0 Eosinophils % 0.0 Basophils % 0.1 Nucleated Red Blood Cells % 0.3 H Neutrophils # 18.7 H Lymphocytes # 0.2 L Monocytes # 0.4 Eosinophils # 0.0 Basophils # 0.0 Nucleated Red Blood Cells # 0.1 H Random Vancomycin Level 14.4 Sodium Level 137 Potassium Level 4.0 Chloride Level 99 Carbon Dioxide Level 23 Anion Gap 19 H Blood Urea Nitrogen 48 #H Creatinine 3.69 #H Glucose Level 305 #H Calcium Level 8.0 L Phosphorus Level 5.5 #H Total Bilirubin 0.3 Direct Bilirubin 0.00 Indirect Bilirubin 0.3 Aspartate Amino Transf (AST/SGOT) 15 Alanine Aminotransferase (ALT/SGPT) 20 Alkaline Phosphatase 94 Total Protein 5.6 L Albumin 2.8 L Globulin 2.80 Albumin/Globulin Ratio 1.00 Bedside Glucose 169 169 Medications Medications Current Medications Atorvastatin Calcium (Lipitor) 40 mg HS PO Last administered on 08/15/16 20:59 ; Admin Dose 40 MG; Start 08/01/16 at 21:00 Calcitriol (Rocaltrol) 0.25 mcg DAILY PO Last administered on 08/16/16 09:03; Admin Dose 0.25 MCG; Start 08/01/16 at 09:00 Calcium/Vitamin D (Oyster Shell/ Vit-D (500/200)) 1 tab BID PO Last administered on 08/16/16 09:03; Admin Dose 1 TAB; Start 08/01/16 at 09:00 Hydralazine HCl (Apresoline) 50 mg Q8 PO Last administered on 08/16/16 05:41; Admin Dose 50 MG; Start 08/01/16 at 06:00 Metoprolol Tartrate (Lopressor) 25 mg BID PO Last administered on 08/16/16 09: 03; Admin Dose 25 MG; Start 08/01/16 at 09:00 Paroxetine HCl (Paxil) 10 mg DAILY PO Last administered on 08/16/16 09:03; Admin Dose 10 MG; Start 08/01/16 at 09:00 Acetaminophen (Tylenol Tab) 650 mg Q4H PRN PO PAIN AND OR ELEVATED TEMP Last administered on 08/14/16 22:09; Admin Dose 650 MG; Start 08/01/16 at 00:30 Hydralazine HCl (Apresoline) 20 mg Q6H PRN IV ELEVATED BLOOD PRESSURE Last administered on 08/09/16 03:50; Admin Dose 20 MG; Start 08/01/16 at 00:30 Guaifenesin/ Dextromethorphan (Robitussin Dm Liquid Cup) 10 ml Q4H PRN PO COUGH Last administered on 08/10/16 09:37; Admin Dose 10 ML; Start 08/01/16 at 00:30 Heparin Sodium (Porcine) (Heparin (5000 Units/0.5 ml)) 5,000 unit BID SC Last administered on 08/04/16 08:55; Admin Dose 5,000 UNIT; Start 08/01/16 at 09:00 ; Status Future Hold Epoetin Braden (Epogen (Esrd)) 6,000 units MoWeFr@17 SC Last administered on 12:31; Admin Dose 6,000 UNITS; Start 08/02/16 at 17:00 Miscellaneous Information 1 ea NOTE XX ; Start 08/02/16 at 12:30 Linagliptin (Tradjenta) 5 mg DAILY PO Last administered on 08/16/16 09:03; Admin Dose 5 MG; Start 08/04/16 at 20:00 Salmeterol Xinafoate/ Fluticasone (Advair 250/50 Diskus) 1 inh BID INH Last administered on 08/16/16 09:02; Admin Dose 1 INH; Start 08/08/16 at 11:00 Montelukast Sodium (Singulair) 10 mg HS PO Last administered on 08/15/16 20:59 ; Admin Dose 10 MG; Start 08/08/16 at 21:00 Tiotropium [place] 1 inh 1 inh DAILY INH Last administered on 08/16/16 09:02; Admin Dose 1 INH; Start 08/08/16 at 11:00 Piperacillin Sod/ Tazobactam Sod (Zosyn 2.25gm/ 50ml (Pmx)) 50 ml @ 100 mls/hr Q8 IVPB Last administered on 08/16/16 06:21; Admin Dose 100 MLS/HR; Start 08/10 at 14:00 Diltiazem HCl (Cardizem Cd) 180 mg DAILY PO Last administered on 08/16/16 09: 02; Admin Dose 180 MG; Start 08/11/16 at 09:00 Miscellaneous Information Discontinue all previ... PROTOCOL XX ; Start 08/12/16 at 22:30; Stop 08/15/16 at 22:29; Status UNV Dextrose/Sodium Chloride (D5-1/2ns) 1,000 ml @ 50 mls/hr Q20H IV Last administered on 08/16/16 09:05; Admin Dose 50 MLS/HR; Start 08/13/16 at 11:30 Insulin Aspart (Novolog Insulin Pen) NOVOLOG *MILD* ALGORI... Q4 SC Last administered on 08/16/16 09:06; Admin Dose 1 UNIT; Start 08/13/16 at 21:00 Miscellaneous Information 1 ea NOTE XX ; Start 08/13/16 at 17:30 Glucose (Glutose) 15 gm Q15M PRN PO DECREASED GLUCOSE; Start 08/13/16 at 17:30 Glucose (Glutose) 22.5 gm Q15M PRN PO DECREASED GLUCOSE; Start 08/13/16 at 17:30 Dextrose (D50w Syringe) 25 ml Q15M PRN IV DECREASED GLUCOSE; Start 08/13/16 at 17:30 Dextrose (D50w Syringe) 50 ml Q15M PRN IV DECREASED GLUCOSE; Start 08/13/16 at 17:30 Glucagon (Glucagen) 1 mg Q15M PRN IM DECREASED GLUCOSE; Start 08/13/16 at 17:30 Glucose 15 gm 15 gm Q15M PRN BUCCAL DECREASED GLUCOSE; Start 08/13/16 at 17:30 Amiodarone HCl 900 mg/Dextrose 500 ml @ 0 mls/hr Q0M IV Last administered on 14:52; Admin Dose 33.4 MLS/HR; Start 08/15/16 at 14:30; Stop 08/16/16 at 14:29 Vancomycin HCl (Vancocin) 250 ml @ 125 mls/hr Q96H IVPB Last administered on 4 /10/17at 12:01; Admin Dose 125 MLS/HR; Start 08/16/16 at 10:00 Amiodarone HCl (Cordarone) 400 mg BID PO ; Start 08/16/16 at 21:00; Status KOFI CARRIZALES Aug 16, 2016 13:08
[2016-08-16] MEDS ORDERED: [UNRECOGNIZED DRUG - REMARK] XX SCH (13:30)
[2016-08-16] MEDS: AMIODARONE 200 MG TAB PO SCH ×2 (14:00→21:20)
--- NOTE | 2016-08-16 16:58 | PN ---
DATE: 08/16/2016 SUBJECTIVE: No acute changes. The patient is lying comfortably in bed, comfortable on nasal cannul a. No fevers. Temperature 97.6. WBC today 19.7, H and H 9.8 and 33.1, platelets 171, neutrophils 94.8. INDWELLINGS: She has right chest PermCath, peripheral IV. ANTIMICROBIALS: 1. Vancomycin. 2. Zosyn. PHYSICAL EXAMINATION: GENERAL: Fragile, elderly woman in no distress. HEENT: Head atraumatic, normocephalic. Sclerae anicteric. Buccal mucosa dry. NECK: Supple. Trachea midline. CHEST: Rise symmetrical. Breath sounds diminished to bases. HEART: S1, S2. ABDOMEN: Soft. Bowel tones present. EXTREMITIES: Without cyanosis. ASSESSMENT: 1. Sepsis with bacteremia on admission, repeat blood cultures negative. 2. Pneumonia. 3. Pleural effusions, status post thoracentesis with pleural fluid culture results pending. Gram s tain shows gram-negative rods. 4. End-stage renal disease, hemodialysis dependent. 5. Diabetes. 6. History of pancreatic stent. PLAN: The patient remains stable. Continue present care. Continue on current antibiotics. Follow cardiology, nephrology and pulmonary recommendations. Await for final pleural fluid cultures. Dictated By: NAHUN DOWNEY CARDING UTILITY TENDER for [employer] H[employer]T/SYED Conf#: [id number] DID#: [id number]
[2016-08-16] MEDS: APIXABAN 5 MG TABLET PO SCH ×2 (17:21→22:16)
[2016-08-16] MEDS: EPOETIN 3000 UNITS/1 ML INJ (ESRD) SC SCH (17:25)
--- NOTE | 2016-08-16 17:51 | CONS ---
Date/Time of Note Date/Time of Note DATE: 08/16/16 TIME: 17:50 Assessment/Plan Assessment/Plan Problems: (1) End stage renal disease on dialysis due to type 2 diabetes mellitus Status: Chronic Comment: She remains adequately controlled for the renal dysfunction and for the diabetes. Her blood sugar control is been acceptable. However she has multiple issues including her long-term nutritional mechanism of feedings etc. We will continue to follow her. (2) COPD (chronic obstructive pulmonary disease) Status: Chronic Comment: Adequately controlled especially in the setting of the abnormal chest x-ray pneumonia Qualifiers: COPD type: unspecified COPD Qualified Code: J44.9 - Chronic obstructive pulmonary disease, unspecified COPD type Consultation Date/Type/Reason Admit Date/Time Jul 31, 2016 at 19:59 Initial Consult Date 08/06/16 Type of Consultation: Endocrinology Reason for Consultation Diabetes mellitus in the setting of renal failure and pneumonia Referring Provider: LALA ORO 24 HR Interval Summary Constitutional: no complaints Exam/Review of Systems Vital Signs Vitals Vital Signs Date Time Temp Pulse Resp B/P Pulse Ox O2 Delivery O2 Flow Rate FiO2 08/16/16 16:38 97.4 93 24 122/57 96 08/16/16 14:30 3.0 08/16/16 14:26 Nasal Cannula 08/14/16 04:49 33 Intake and Output 08/15/16 08/15/16 08/16/16 14:59 22:59 06:59 Intake Total 883.4 ml 1100.2 ml 741.2 ml Output Total 4300 ml Balance -3416.6 ml 1100.2 ml 741.2 ml Exam Constitutional: alert, oriented Cardiovascular: nl pulses, regular rate and rhythm Results Result Diagram: 08/16/16 0636 08/16/16 0639 Results 24 hrs Laboratory Tests Test 08/15/16 21:00 08/16/16 02:19 08/16/16 05:28 08/16/16 06:36 Bedside Glucose 164 143 168 White Blood Count 19.7 H Red Blood Count 3.42 L Hemoglobin 9.8 L Hematocrit 33.1 L Mean Corpuscular Volume 96.8 Mean Corpuscular Hemoglobin 28.7 L Mean Corpuscular Hemoglobin Concent 29.6 L Red Cell Distribution Width 15.3 H Platelet Count 171 Mean Platelet Volume 11.0 H Neutrophils % 94.8 H Lymphocytes % 1.2 L Monocytes % 2.0 Eosinophils % 0.0 Basophils % 0.1 Nucleated Red Blood Cells % 0.3 H Neutrophils # 18.7 H Lymphocytes # 0.2 L Monocytes # 0.4 Eosinophils # 0.0 Basophils # 0.0 Nucleated Red Blood Cells # 0.1 H Random Vancomycin Level 14.4 Test 08/16/16 06:39 08/16/16 08:08 08/16/16 12:14 08/16/16 17:15 Sodium Level 137 Potassium Level 4.0 Chloride Level 99 Carbon Dioxide Level 23 Anion Gap 19 H Blood Urea Nitrogen 48 #H Creatinine 3.69 #H Glucose Level 305 #H Calcium Level 8.0 L Phosphorus Level 5.5 #H Total Bilirubin 0.3 Direct Bilirubin 0.00 Indirect Bilirubin 0.3 Aspartate Amino Transf (AST/SGOT) 15 Alanine Aminotransferase (ALT/SGPT) 20 Alkaline Phosphatase 94 Total Protein 5.6 L Albumin 2.8 L Globulin 2.80 Albumin/Globulin Ratio 1.00 Bedside Glucose 169 169 130 Medications Medications Current Medications Atorvastatin Calcium (Lipitor) 40 mg HS PO Last administered on 08/15/16 20:59 ; Admin Dose 40 MG; Start 08/01/16 at 21:00 Calcitriol (Rocaltrol) 0.25 mcg DAILY PO Last administered on 08/16/16 09:03; Admin Dose 0.25 MCG; Start 08/01/16 at 09:00 Calcium/Vitamin D (Oyster Shell/ Vit-D (500/200)) 1 tab BID PO Last administered on 08/16/16 09:03; Admin Dose 1 TAB; Start 08/01/16 at 09:00 Hydralazine HCl (Apresoline) 50 mg Q8 PO Last administered on 08/16/16 15:06; Admin Dose 50 MG; Start 08/01/16 at 06:00 Metoprolol Tartrate (Lopressor) 25 mg BID PO Last administered on 08/16/16 09: 03; Admin Dose 25 MG; Start 08/01/16 at 09:00 Paroxetine HCl (Paxil) 10 mg DAILY PO Last administered on 08/16/16 09:03; Admin Dose 10 MG; Start 08/01/16 at 09:00 Acetaminophen (Tylenol Tab) 650 mg Q4H PRN PO PAIN AND OR ELEVATED TEMP Last administered on 08/14/16 22:09; Admin Dose 650 MG; Start 08/01/16 at 00:30 Hydralazine HCl (Apresoline) 20 mg Q6H PRN IV ELEVATED BLOOD PRESSURE Last administered on 08/09/16 03:50; Admin Dose 20 MG; Start 08/01/16 at 00:30 Guaifenesin/ Dextromethorphan (Robitussin Dm Liquid Cup) 10 ml Q4H PRN PO COUGH Last administered on 08/10/16 09:37; Admin Dose 10 ML; Start 08/01/16 at 00:30 Epoetin Braden (Epogen (Esrd)) 6,000 units MoWeFr@17 SC Last administered on 08/16 17:25; Admin Dose 6,000 UNITS; Start 08/02/16 at 17:00 Miscellaneous Information 1 ea NOTE XX ; Start 08/02/16 at 12:30 Linagliptin (Tradjenta) 5 mg DAILY PO Last administered on 08/16/16 09:03; Admin Dose 5 MG; Start 08/04/16 at 20:00 Salmeterol Xinafoate/ Fluticasone (Advair 250/50 Diskus) 1 inh BID INH Last administered on 08/16/16 09:02; Admin Dose 1 INH; Start 08/08/16 at 11:00 Montelukast Sodium (Singulair) 10 mg HS PO Last administered on 08/15/16 20:59 ; Admin Dose 10 MG; Start 08/08/16 at 21:00 Tiotropium [place] 1 inh 1 inh DAILY INH Last administered on 08/16/16 09:02; Admin Dose 1 INH; Start 08/08/16 at 11:00 Piperacillin Sod/ Tazobactam Sod (Zosyn 2.25gm/ 50ml (Pmx)) 50 ml @ 100 mls/hr Q8 IVPB Last administered on 08/16/16 15:05; Admin Dose 100 MLS/HR; Start 08/10 at 14:00 Diltiazem HCl (Cardizem Cd) 180 mg DAILY PO Last administered on 08/16/16 09: 02; Admin Dose 180 MG; Start 08/11/16 at 09:00 Miscellaneous Information Discontinue all previ... PROTOCOL XX ; Start 08/12/16 at 22:30; Stop 08/15/16 at 22:29; Status UNV Dextrose/Sodium Chloride (D5-1/2ns) 1,000 ml @ 50 mls/hr Q20H IV Last administered on 08/16/16 09:05; Admin Dose 50 MLS/HR; Start 08/13/16 at 11:30 Insulin Aspart (Novolog Insulin Pen) NOVOLOG *MILD* ALGORI... Q4 SC Last administered on 08/16/16 13:24; Admin Dose 1 UNIT; Start 08/13/16 at 21:00 Miscellaneous Information 1 ea NOTE XX ; Start 08/13/16 at 17:30 Glucose (Glutose) 15 gm Q15M PRN PO DECREASED GLUCOSE; Start 08/13/16 at 17:30 Glucose (Glutose) 22.5 gm Q15M PRN PO DECREASED GLUCOSE; Start 08/13/16 at 17:30 Dextrose (D50w Syringe) 25 ml Q15M PRN IV DECREASED GLUCOSE; Start 08/13/16 at 17:30 Dextrose (D50w Syringe) 50 ml Q15M PRN IV DECREASED GLUCOSE; Start 08/13/16 at 17:30 Glucagon (Glucagen) 1 mg Q15M PRN IM DECREASED GLUCOSE; Start 08/13/16 at 17:30 Glucose 15 gm 15 gm Q15M PRN BUCCAL DECREASED GLUCOSE; Start 08/13/16 at 17:30 Vancomycin HCl (Vancocin) 250 ml @ 125 mls/hr Q96H IVPB Last administered on 12:01; Admin Dose 125 MLS/HR; Start 08/16/16 at 10:00 Amiodarone HCl (Cordarone) 400 mg BID PO Last administered on 08/16/16 14:00; Admin Dose 400 MG; Start 08/16/16 at 13:00 Apixaban (Eliquis) 2.5 mg BID PO Last administered on 08/16/16 17:21; Admin Dose 2.5 MG; Start 08/16/16 at 17:00 BUNNY WATSON MD Aug 16, 2016 17:51
--- NOTE | 2016-08-16 18:34 | PN ---
Date/Time of Note Date/Time of Note DATE: 08/16/16 TIME: 18:32 Assessment/Plan Lines/Catheters IV Catheter Type (from [facility]): Peripheral IV Urinary Cath still in place: No Assessment/Plan Assessment/Plan -Acute respiratory insufficiency secondary to pneumonia and COPD exacerbation. - Right-sided pneumonia per CT scan, continue cefepime. - A-fib with RVR, continue Cardizem, patient is followed by Dr. Stuart in cardiology. - COPD exacerbation, continue breathing treatment. Dr. Natarajan is following in pulmonology consultation - End-stage renal disease stage V. Dr. Leon is following in nephrology consultation. Continue to hemodialysis via right femoral hemodialysis catheter. - Pulmonary edema. Continue diuresis. - Anemia of chronic kidney disease. Continue Epogen. - Diabetes mellitus type [address] Garcia is following an endocrinology consultation. Continue NPH. - Hypertension, continue Norvasc. -Left upper extremity AV fistula, non-matured -Status post right hemodialysis non-tunneled catheter placement by Dr. Manning on 08/03. S/p R IJ tunneled hemodialysis catheter placement. Further treatment depends upon patient's clnical course. Total critical care time spent 30 mins. Plan of care dw Dr Flores/staff Subjective 24 Hr Interval Summary Free Text/Dictation nad, sitting up in bed, having dinner. feels better, denies any chest pain. Family at bed sude-all Qs answered. dw staff Constitutional: improved Eyes: no complaints ENT: no complaints Respiratory: no complaints Cardiovascular: no complaints Gastrointestinal: no complaints Genitourinary: no complaints Musculoskeletal: no complaints Skin: no complaints Neurologic: no complaints Endocrine: no complaints Lymphatic: no complaints Psychological: no complaints Immunologic: no complaints Exam/Review of Systems Vital Signs Vitals Vital Signs Date Time Temp Pulse Resp B/P Pulse Ox O2 Delivery O2 Flow Rate FiO2 08/16/16 16:38 97.4 93 24 122/57 96 08/16/16 14:30 3.0 08/16/16 14:26 Nasal Cannula 08/14/16 04:49 33 Intake and Output 08/15/16 08/15/16 08/16/16 15:00 23:00 07:00 Intake Total 1083.4 ml 1016.8 ml 574.6 ml Output Total 4300 ml Balance -3216.6 ml 1016.8 ml 574.6 ml Exam Constitutional: alert, oriented, well developed Psych: nl mood/affect Head: atraumatic Eyes: EOMI ENMT: nl external ears & nose Neck: non-tender Respiratory: diminished breath sounds Cardiovascular: nl pulses Gastrointestinal: non-tender, soft Musculoskeletal: nl extremities to inspection Extremities: normal pulses 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: nl mental status, nl speech Skin: nl turgor Lymph: nontender Results Result Diagram: 08/16/16 0636 08/16/16 0639 Results 24 hrs Laboratory Tests Test 08/15/16 21:00 08/16/16 02:19 08/16/16 05:28 08/16/16 06:36 Bedside Glucose 164 143 168 White Blood Count 19.7 H Red Blood Count 3.42 L Hemoglobin 9.8 L Hematocrit 33.1 L Mean Corpuscular Volume 96.8 Mean Corpuscular Hemoglobin 28.7 L Mean Corpuscular Hemoglobin Concent 29.6 L Red Cell Distribution Width 15.3 H Platelet Count 171 Mean Platelet Volume 11.0 H Neutrophils % 94.8 H Lymphocytes % 1.2 L Monocytes % 2.0 Eosinophils % 0.0 Basophils % 0.1 Nucleated Red Blood Cells % 0.3 H Neutrophils # 18.7 H Lymphocytes # 0.2 L Monocytes # 0.4 Eosinophils # 0.0 Basophils # 0.0 Nucleated Red Blood Cells # 0.1 H Random Vancomycin Level 14.4 Test 08/16/16 06:39 08/16/16 08:08 08/16/16 12:14 08/16/16 17:15 Sodium Level 137 Potassium Level 4.0 Chloride Level 99 Carbon Dioxide Level 23 Anion Gap 19 H Blood Urea Nitrogen 48 #H Creatinine 3.69 #H Glucose Level 305 #H Calcium Level 8.0 L Phosphorus Level 5.5 #H Total Bilirubin 0.3 Direct Bilirubin 0.00 Indirect Bilirubin 0.3 Aspartate Amino Transf (AST/SGOT) 15 Alanine Aminotransferase (ALT/SGPT) 20 Alkaline Phosphatase 94 Total Protein 5.6 L Albumin 2.8 L Globulin 2.80 Albumin/Globulin Ratio 1.00 Bedside Glucose 169 169 130 Medications Medications Current Medications Atorvastatin Calcium (Lipitor) 40 mg HS PO Last administered on 08/15/16t 20:59 ; Admin Dose 40 MG; Start 08/01/16 at 21:00 Calcitriol (Rocaltrol) 0.25 mcg DAILY PO Last administered on 08/16/16 09:03; Admin Dose 0.25 MCG; Start 08/01/16 at 09:00 Calcium/Vitamin D (Oyster Shell/ Vit-D (500/200)) 1 tab BID PO Last administered on 08/16/16 09:03; Admin Dose 1 TAB; Start 08/01/16 at 09:00 Hydralazine HCl (Apresoline) 50 mg Q8 PO Last administered on 08/16/16 15:06; Admin Dose 50 MG; Start 08/01/16 at 06:00 Metoprolol Tartrate (Lopressor) 25 mg BID PO Last administered on 08/16/16 09: 03; Admin Dose 25 MG; Start 08/01/16 at 09:00 Paroxetine HCl (Paxil) 10 mg DAILY PO Last administered on 08/16/16 09:03; Admin Dose 10 MG; Start 08/01/16 at 09:00 Acetaminophen (Tylenol Tab) 650 mg Q4H PRN PO PAIN AND OR ELEVATED TEMP Last administered on 08/14/16 22:09; Admin Dose 650 MG; Start 08/01/16 at 00:30 Hydralazine HCl (Apresoline) 20 mg Q6H PRN IV ELEVATED BLOOD PRESSURE Last administered on 08/09/16 03:50; Admin Dose 20 MG; Start 08/01/16 at 00:30 Guaifenesin/ Dextromethorphan (Robitussin Dm Liquid Cup) 10 ml Q4H PRN PO COUGH Last administered on 08/10/16 09:37; Admin Dose 10 ML; Start 08/01/16 at 00:30 Epoetin Braden (Epogen (Esrd)) 6,000 units MoWeFr@17 SC Last administered on 08/16 17:25; Admin Dose 6,000 UNITS; Start 08/02/16 at 17:00 Miscellaneous Information 1 ea NOTE XX ; Start 08/02/16 at 12:30 Linagliptin (Tradjenta) 5 mg DAILY PO Last administered on 08/16/16 09:03; Admin Dose 5 MG; Start 08/04/16 at 20:00 Salmeterol Xinafoate/ Fluticasone (Advair 250/50 Diskus) 1 inh BID INH Last administered on 08/16/16 09:02; Admin Dose 1 INH; Start 08/08/16 at 11:00 Montelukast Sodium (Singulair) 10 mg HS PO Last administered on 08/15/16 20:59 ; Admin Dose 10 MG; Start 08/08/16 at 21:00 Tiotropium [place] 1 inh 1 inh DAILY INH Last administered on 08/16/16 09:02; Admin Dose 1 INH; Start 08/08/16 at 11:00 Piperacillin Sod/ Tazobactam Sod (Zosyn 2.25gm/ 50ml (Pmx)) 50 ml @ 100 mls/hr Q8 IVPB Last administered on 08/16/16 15:05; Admin Dose 100 MLS/HR; Start 08/10 at 14:00 Diltiazem HCl (Cardizem Cd) 180 mg DAILY PO Last administered on 08/16/16 09: 02; Admin Dose 180 MG; Start 08/11/16 at 09:00 Miscellaneous Information Discontinue all previ... PROTOCOL XX ; Start 08/12/16 at 22:30; Stop 08/15/16 at 22:29; Status UNV Dextrose/Sodium Chloride (D5-1/2ns) 1,000 ml @ 50 mls/hr Q20H IV Last administered on 08/16/16 09:05; Admin Dose 50 MLS/HR; Start 08/13/16 at 11:30 Insulin Aspart (Novolog Insulin Pen) NOVOLOG *MILD* ALGORI... Q4 SC Last administered on 08/16/16 13:24; Admin Dose 1 UNIT; Start 08/13/16 at 21:00 Miscellaneous Information 1 ea NOTE XX ; Start 08/13/16 at 17:30 Glucose (Glutose) 15 gm Q15M PRN PO DECREASED GLUCOSE; Start 08/13/16 at 17:30 Glucose (Glutose) 22.5 gm Q15M PRN PO DECREASED GLUCOSE; Start 08/13/16 at 17:30 Dextrose (D50w Syringe) 25 ml Q15M PRN IV DECREASED GLUCOSE; Start 08/13/16 at 17:30 Dextrose (D50w Syringe) 50 ml Q15M PRN IV DECREASED GLUCOSE; Start 08/13/16 at 17:30 Glucagon (Glucagen) 1 mg Q15M PRN IM DECREASED GLUCOSE; Start 08/13/16 at 17:30 Glucose 15 gm 15 gm Q15M PRN BUCCAL DECREASED GLUCOSE; Start 08/13/16 at 17:30 Vancomycin HCl (Vancocin) 250 ml @ 125 mls/hr Q96H IVPB Last administered on 12:01; Admin Dose 125 MLS/HR; Start 08/16/16 at 10:00 Amiodarone HCl (Cordarone) 400 mg BID PO Last administered on 08/16/16 14:00; Admin Dose 400 MG; Start 08/16/16 at 13:00 Apixaban (Eliquis) 2.5 mg BID PO Last administered on 08/16/16 17:21; Admin Dose 2.5 MG; Start 08/16/16 at 17:00 LALA ORO Aug 16, 2016 18:34
[2016-08-16] MEDS: ATORVASTATIN 40 MG TAB PO SCH (21:12)
[2016-08-16] MEDS: MONTELUKAST 10 MG TAB PO SCH (21:12)
--- NOTE | 2016-08-16 22:40 | CONS ---
Date/Time of Note Date/Time of Note DATE: 08/16/16 TIME: 22:39 Assessment/Plan Assessment/Plan Chief Complaint/Hosp Course IMPRESSION: 1. End-stage renal disease stage V. 2. Fluid overload.better 3. Pulmonary edema./pleural effusion/lung infilterate 4. Anemia of chronic kidney disease. 5. History of diabetes mellitus. 6. 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 7. AV fistula on the left upper extremity. 8 pneumonia/bronchites 9 thoracentesis s/p plan continue hd fluis res antibiotic Problems: Consultation Date/Type/Reason Admit Date/Time Jul 31, 2016 at 19:59 Initial Consult Date 08/01/16 Type of Consultation: renal Referring Provider: LALA ORO 24 HR Interval Summary Constitutional: other (sob better), requiring O2 Exam/Review of Systems Vital Signs Vitals Vital Signs Date Time Temp Pulse Resp B/P Pulse Ox O2 Delivery O2 Flow Rate FiO2 08/16/16 20:05 114 08/16/16 20:00 98.0 20 125/70 98 08/16/16 19:42 3.0 08/16/16 19:42 Nasal Cannula 08/14/16 04:49 33 Intake and Output 08/15/16 08/15/16 08/16/16 15:00 23:00 07:00 Intake Total 1083.4 ml 1016.8 ml 574.6 ml Output Total 4300 ml Balance -3216.6 ml 1016.8 ml 574.6 ml Exam Respiratory: diminished breath sounds Cardiovascular: murmurs/extra sounds, regular rate and rhythm Gastrointestinal: bowel sounds, soft, No tender Extremities: edema Results Result Diagram: 08/16/16 0636 08/16/16 0639 Results 24 hrs Laboratory Tests Test 08/16/16 02:19 08/16/16 05:28 08/16/16 06:36 08/16/16 06:39 Bedside Glucose 143 168 White Blood Count 19.7 H Red Blood Count 3.42 L Hemoglobin 9.8 L Hematocrit 33.1 L Mean Corpuscular Volume 96.8 Mean Corpuscular Hemoglobin 28.7 L Mean Corpuscular Hemoglobin Concent 29.6 L Red Cell Distribution Width 15.3 H Platelet Count 171 Mean Platelet Volume 11.0 H Neutrophils % 94.8 H Lymphocytes % 1.2 L Monocytes % 2.0 Eosinophils % 0.0 Basophils % 0.1 Nucleated Red Blood Cells % 0.3 H Neutrophils # 18.7 H Lymphocytes # 0.2 L Monocytes # 0.4 Eosinophils # 0.0 Basophils # 0.0 Nucleated Red Blood Cells # 0.1 H Random Vancomycin Level 14.4 Sodium Level 137 Potassium Level 4.0 Chloride Level 99 Carbon Dioxide Level 23 Anion Gap 19 H Blood Urea Nitrogen 48 #H Creatinine 3.69 #H Glucose Level 305 #H Calcium Level 8.0 L Phosphorus Level 5.5 #H Total Bilirubin 0.3 Direct Bilirubin 0.00 Indirect Bilirubin 0.3 Aspartate Amino Transf (AST/SGOT) 15 Alanine Aminotransferase (ALT/SGPT) 20 Alkaline Phosphatase 94 Total Protein 5.6 L Albumin 2.8 L Globulin 2.80 Albumin/Globulin Ratio 1.00 Test 08/16/16 08:08 08/16/16 12:14 08/16/16 17:15 08/16/16 21:09 Bedside Glucose 169 169 130 207 Medications Medications Current Medications Atorvastatin Calcium (Lipitor) 40 mg HS PO Last administered on 08/16/16 21:12 ; Admin Dose 40 MG; Start 08/01/16 at 21:00 Calcitriol (Rocaltrol) 0.25 mcg DAILY PO Last administered on 08/16/16 09:03; Admin Dose 0.25 MCG; Start 08/01/16 at 09:00 Calcium/Vitamin D (Oyster Shell/ Vit-D (500/200)) 1 tab BID PO Last administered on 08/16/16 21:12; Admin Dose 1 TAB; Start 08/01/16 at 09:00 Hydralazine HCl (Apresoline) 50 mg Q8 PO Last administered on 08/16/16 22:16; Admin Dose 50 MG; Start 08/01/16 at 06:00 Metoprolol Tartrate (Lopressor) 25 mg BID PO Last administered on 08/16/16 21: 21; Admin Dose 25 MG; Start 08/01/16 at 09:00 Paroxetine HCl (Paxil) 10 mg DAILY PO Last administered on 08/16/16 09:03; Admin Dose 10 MG; Start 08/01/16 at 09:00 Acetaminophen (Tylenol Tab) 650 mg Q4H PRN PO PAIN AND OR ELEVATED TEMP Last administered on 08/14/16 22:09; Admin Dose 650 MG; Start 08/01/16 at 00:30 Hydralazine HCl (Apresoline) 20 mg Q6H PRN IV ELEVATED BLOOD PRESSURE Last administered on 08/09/16 03:50; Admin Dose 20 MG; Start 08/01/16 at 00:30 Guaifenesin/ Dextromethorphan (Robitussin Dm Liquid Cup) 10 ml Q4H PRN PO COUGH Last administered on 08/10/16 09:37; Admin Dose 10 ML; Start 08/01/16 at 00:30 Epoetin Braden (Epogen (Esrd)) 6,000 units MoWeFr@17 SC Last administered on 08/16 17:25; Admin Dose 6,000 UNITS; Start 08/02/16 at 17:00 Miscellaneous Information 1 ea NOTE XX ; Start 08/02/16 at 12:30 Linagliptin (Tradjenta) 5 mg DAILY PO Last administered on 08/16/16 09:03; Admin Dose 5 MG; Start 08/04/16 at 20:00 Salmeterol Xinafoate/ Fluticasone (Advair 250/50 Diskus) 1 inh BID INH Last administered on 08/16/16 21:12; Admin Dose 1 INH; Start 08/08/16 at 11:00 Montelukast Sodium (Singulair) 10 mg HS PO Last administered on 08/16/16 21:12 ; Admin Dose 10 MG; Start 08/08/16 at 21:00 Tiotropium [place] 1 inh 1 inh DAILY INH Last administered on 08/16/16 09:02; Admin Dose 1 INH; Start 08/08/16 at 11:00 Piperacillin Sod/ Tazobactam Sod (Zosyn 2.25gm/ 50ml (Pmx)) 50 ml @ 100 mls/hr Q8 IVPB Last administered on 08/16/16 22:16; Admin Dose 100 MLS/HR; Start 08/10 at 14:00 Diltiazem HCl (Cardizem Cd) 180 mg DAILY PO Last administered on 08/16/16 09: 02; Admin Dose 180 MG; Start 08/11/16 at 09:00 Miscellaneous Information Discontinue all previ... PROTOCOL XX ; Start 08/12/16 at 22:30; Stop 08/15/16 at 22:29; Status UNV Dextrose/Sodium Chloride (D5-1/2ns) 1,000 ml @ 50 mls/hr Q20H IV Last administered on 08/16/16 09:05; Admin Dose 50 MLS/HR; Start 08/13/16 at 11:30 Insulin Aspart (Novolog Insulin Pen) NOVOLOG *MILD* ALGORI... Q4 SC Last administered on 08/16/16 21:26; Admin Dose 2 UNIT; Start 08/13/16 at 21:00 Miscellaneous Information 1 ea NOTE XX ; Start 08/13/16 at 17:30 Glucose (Glutose) 15 gm Q15M PRN PO DECREASED GLUCOSE; Start 08/13/16 at 17:30 Glucose (Glutose) 22.5 gm Q15M PRN PO DECREASED GLUCOSE; Start 08/13/16 at 17:30 Dextrose (D50w Syringe) 25 ml Q15M PRN IV DECREASED GLUCOSE; Start 08/13/16 at 17:30 Dextrose (D50w Syringe) 50 ml Q15M PRN IV DECREASED GLUCOSE; Start 08/13/16 at 17:30 Glucagon (Glucagen) 1 mg Q15M PRN IM DECREASED GLUCOSE; Start 08/13/16 at 17:30 Glucose 15 gm 15 gm Q15M PRN BUCCAL DECREASED GLUCOSE; Start 08/13/16 at 17:30 Vancomycin HCl (Vancocin) 250 ml @ 125 mls/hr Q96H IVPB Last administered on 12:01; Admin Dose 125 MLS/HR; Start 08/16/16 at 10:00 Amiodarone HCl (Cordarone) 400 mg BID PO Last administered on 08/16/16 21:20; Admin Dose 400 MG; Start 08/16/16 at 13:00 Apixaban (Eliquis) 2.5 mg BID PO Last administered on 08/16/16 22:16; Admin Dose 2.5 MG; Start 08/16/16 at 17:00 DAT OLSON MD Aug 16, 2016 22:40
[2016-08-17] VITALS (19 sets, daily range): BP systolic 105–128; BP diastolic 44–83; PULSE 95–136; RESP 16–20
[2016-08-17] MEDS: INSULIN ASPART [NOVOLOG] 3 ML PEN SC SCH ×6 (02:21→22:30)
[2016-08-17] MEDS: ALBUTEROL/IPRATROPIUM (NEB) 3 ML AMP HHN SCH ×4 (02:42→19:18)
[2016-08-17] MEDS: PIPER-TAZO 2.25 GM (PMX) 50 ML IVPB SCH ×3 (05:43→22:11)
[2016-08-17] MEDS: FUROSEMIDE 40 MG INJ IV SCH ×2 (05:45→18:28)
[2016-08-17 06:55] LABS: ADD SCAN DIFF NO
[2016-08-17 06:56] LABS: ABNORMAL IP MESSAGE 1; HEMATOCRIT 29.6 % (37.0-47.0); HEMOGLOBIN 9.4 g/dl (12.0-16.0); MEAN CORPUSCULAR HEMOGLOBIN 29.7 pg (29.0-33.0); MEAN CORPUSCULAR HGB CONC 31.8 g/dl (32.0-37.0); MEAN CORPUSCULAR VOLUME 93.4 fl (82.0-101.0); MEAN PLATELET VOLUME 10.6 fl (7.4-10.4); PLATELET COUNT 159 10^3/UL (140-415); RED BLOOD COUNT 3.17 10^6/ul (4.20-5.40); RED CELL DISTRIBUTION WIDTH 15.2 % (11.5-14.5); WHITE BLOOD COUNT 14.3 10^3/ul (4.8-10.8)
[2016-08-17 07:29] LABS: CALCIUM 7.7 mg/dl (8.4-10.2); CREATININE 3.74 mg/dl (0.44-1.00); POTASSIUM 3.4 mmol/L (3.5-5.1)
[2016-08-17] MEDS: CALCIUM/VITAMIN D (500/200) TAB PO SCH ×2 (09:28→22:12)
[2016-08-17] MEDS: PAROXETINE 10 MG TAB PO SCH (09:31)
[2016-08-17] MEDS: LINAGLIPTIN 5 MG TABLET PO SCH (09:31)
[2016-08-17] MEDS: CALCIUM ACETATE 667 MG CAP PO SCH ×4 (09:32→22:12)
[2016-08-17] MEDS: METOPROLOL 25 MG TAB PO SCH (09:33)
[2016-08-17] MEDS: APIXABAN 5 MG TABLET PO SCH ×2 (09:33→22:11)
[2016-08-17] MEDS: AMIODARONE 200 MG TAB PO SCH ×2 (09:33→22:14)
[2016-08-17] MEDS: TIOTROPIUM 18 MCG CAPSULE INHA DEV INH SCH (09:34)
[2016-08-17] MEDS: SALMETEROL/FLUTICASONE 250/50 INHA INH SCH ×2 (09:34→22:10)
[2016-08-17] MEDS: CALCITRIOL 0.25 MCG CAP PO SCH (09:34)
[2016-08-17] MEDS: DILTIAZEM (CD) 180 MG CAP PO SCH (09:34)
[2016-08-17 09:46] LABS: LYMPHOCYTES # 0.6 10^3/ul (0.8-2.9); MONOCYTE # 0.4 10^3/ul (0.3-0.9); NEUTROPHIL # 13.2 10^3/ul (1.6-7.5)
--- NOTE | 2016-08-17 10:26 | CONS ---
Date/Time of Note Date/Time of Note DATE: 08/17/16 TIME: 10:25 Assessment/Plan Assessment/Plan Additional Assessment/Plan Assessment recommendations; next 1. Patient admitted for bilateral pneumonia with significant clinical improvement. Status post right thoracentesis. 2. Renal failure, now requiring hemodialysis. Continue current treatment. Will obtain follow-up chest x-ray. Consultation Date/Type/Reason Admit Date/Time Jul 31, 2016 at 19:59 Initial Consult Date 08/06/16 Type of Consultation: Pulmonary Referring Provider: LALA ORO 24 HR Interval Summary Free Text/Dictation Patient condition stable. Denies any significant shortness of breath. But does complain of dyspnea on exertion. Denies any wheezing. Any chest pain, fever chills. Complains of a scant chest congestion. General exam; elderly lady, currently in no distress Exam/Review of Systems Vital Signs Vitals Vital Signs Date Time Temp Pulse Resp B/P Pulse Ox O2 Delivery O2 Flow Rate FiO2 08/17/16 08:30 114 08/17/16 07:58 98.5 16 108/61 95 08/17/16 07:24 3.0 08/17/16 07:24 Nasal Cannula 08/14/16 04:49 33 Intake and Output 08/16/16 08/16/16 08/17/16 15:00 23:00 07:00 Intake Total 1254 ml 150 ml Output Total 8223 ml Balance 1254 ml -8073 ml Exam HEENT exam is; supple neck, no JVD. No lymphadenopathy. Midline trachea. No thyromegaly. No neck masses. Chest examined; diminished breath sound bilaterally. No added sound. S1-S2 audible, no murmurs. Regular rhythm. Abdomen examination; soft, nondistended. No organomegaly. Bowel sounds audible. Extremity exam is; trace peripheral edema. Pulses 1+ bilaterally. No clubbing. 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 Results Result Diagram: 08/17/16 0630 08/17/16 0630 Results 24 hrs Laboratory Tests Test 08/16/16 12:14 08/16/16 17:15 08/16/16 21:09 08/17/16 01:58 Bedside Glucose 169 130 207 175 Test 08/17/16 05:42 08/17/16 06:30 08/17/16 08:07 Bedside Glucose 160 178 White Blood Count 14.3 #H Red Blood Count 3.17 L Hemoglobin 9.4 L Hematocrit 29.6 L Mean Corpuscular Volume 93.4 Mean Corpuscular Hemoglobin 29.7 Mean Corpuscular Hemoglobin Concent 31.8 L Red Cell Distribution Width 15.2 H Platelet Count 159 Mean Platelet Volume 10.6 H Neutrophils % 92.0 H Band Neutrophils % 1.0 Lymphocytes % 4.0 L Monocytes % 3.0 Neutrophils # 13.2 H Lymphocytes # 0.6 L Monocytes # 0.4 Sodium Level 133 L Potassium Level 3.4 L Chloride Level 100 Carbon Dioxide Level 25 Anion Gap 11 # Blood Urea Nitrogen 46 H Creatinine 3.74 H Glucose Level 171 # Calcium Level 7.7 L Medications Medications Current Medications Atorvastatin Calcium (Lipitor) 40 mg HS PO Last administered on 08/16/16 21:12 ; Admin Dose 40 MG; Start 08/01/16 at 21:00 Calcitriol (Rocaltrol) 0.25 mcg DAILY PO Last administered on 08/17/16 09:34; Admin Dose 0.25 MCG; Start 08/01/16 at 09:00 Calcium/Vitamin D (Oyster Shell/ Vit-D (500/200)) 1 tab BID PO Last administered on 08/17/16 09:28; Admin Dose 1 TAB; Start 08/01/16 at 09:00 Hydralazine HCl (Apresoline) 50 mg Q8 PO Last administered on 08/17/16 05:46; Admin Dose 50 MG; Start 08/01/16 at 06:00 Metoprolol Tartrate (Lopressor) 25 mg BID PO Last administered on 08/17/16 09: 33; Admin Dose 25 MG; Start 08/01/16 at 09:00 Paroxetine HCl (Paxil) 10 mg DAILY PO Last administered on 08/17/16 09:31; Admin Dose 10 MG; Start 08/01/16 at 09:00 Acetaminophen (Tylenol Tab) 650 mg Q4H PRN PO PAIN AND OR ELEVATED TEMP Last administered on 08/14/16 22:09; Admin Dose 650 MG; Start 08/01/16 at 00:30 Hydralazine HCl (Apresoline) 20 mg Q6H PRN IV ELEVATED BLOOD PRESSURE Last administered on 08/09/16 03:50; Admin Dose 20 MG; Start 08/01/16 at 00:30 Guaifenesin/ Dextromethorphan (Robitussin Dm Liquid Cup) 10 ml Q4H PRN PO COUGH Last administered on 08/10/16 09:37; Admin Dose 10 ML; Start 08/01/16 at 00:30 Epoetin Braden (Epogen (Esrd)) 6,000 units MoWeFr@17 SC Last administered on 08/16 17:25; Admin Dose 6,000 UNITS; Start 08/02/16 at 17:00 Miscellaneous Information 1 ea NOTE XX ; Start 08/02/16 at 12:30 Linagliptin (Tradjenta) 5 mg DAILY PO Last administered on 08/17/16 09:31; Admin Dose 5 MG; Start 08/04/16 at 20:00 Salmeterol Xinafoate/ Fluticasone (Advair 250/50 Diskus) 1 inh BID INH Last administered on 08/17/16 09:34; Admin Dose 1 INH; Start 08/08/16 at 11:00 Montelukast Sodium (Singulair) 10 mg HS PO Last administered on 08/16/16 21:12 ; Admin Dose 10 MG; Start 08/08/16 at 21:00 Tiotropium [place] 1 inh 1 inh DAILY INH Last administered on 08/17/16 09:34; Admin Dose 1 INH; Start 08/08/16 at 11:00 Piperacillin Sod/ Tazobactam Sod (Zosyn 2.25gm/ 50ml (Pmx)) 50 ml @ 100 mls/hr Q8 IVPB Last administered on 08/17/16 05:43; Admin Dose 100 MLS/HR; Start 08/10 at 14:00 Diltiazem HCl 180 mg 180 mg DAILY PO Last administered on 08/17/16 09:34; Admin Dose 180 MG; Start 08/11/16 at 09:00 Dextrose/Sodium Chloride (D5-1/2ns) 1,000 ml @ 50 mls/hr Q20H IV Last administered on 08/16/16 09:05; Admin Dose 50 MLS/HR; Start 08/13/16 at 11:30 Insulin Aspart (Novolog Insulin Pen) NOVOLOG *MILD* ALGORI... Q4 SC Last administered on 08/17/16 09:52; Admin Dose 1 UNIT; Start 08/13/16 at 21:00 Miscellaneous Information 1 ea NOTE XX ; Start 08/13/16 at 17:30 Glucose (Glutose) 15 gm Q15M PRN PO DECREASED GLUCOSE; Start 08/13/16 at 17:30 Glucose (Glutose) 22.5 gm Q15M PRN PO DECREASED GLUCOSE; Start 08/13/16 at 17:30 Dextrose (D50w Syringe) 25 ml Q15M PRN IV DECREASED GLUCOSE; Start 08/13/16 at 17:30 Dextrose (D50w Syringe) 50 ml Q15M PRN IV DECREASED GLUCOSE; Start 08/13/16 at 17:30 Glucagon (Glucagen) 1 mg Q15M PRN IM DECREASED GLUCOSE; Start 08/13/16 at 17:30 Glucose 15 gm 15 gm Q15M PRN BUCCAL DECREASED GLUCOSE; Start 08/13/16 at 17:30 Vancomycin HCl (Vancocin) 250 ml @ 125 mls/hr Q96H IVPB Last administered on 12:01; Admin Dose 125 MLS/HR; Start 08/16/16 at 10:00 Amiodarone HCl (Cordarone) 400 mg BID PO Last administered on 08/17/16 09:33; Admin Dose 400 MG; Start 08/16/16 at 13:00 Apixaban (Eliquis) 2.5 mg BID PO Last administered on 08/17/16 09:33; Admin Dose 2.5 MG; Start 08/16/16 at 17:00 KOFI HUERTA Aug 17, 2016 10:26
[2016-08-17] MEDS: DEXTROSE 5%-0.45% NACL 1,000 ML IV SCH (10:43)
--- NOTE | 2016-08-17 11:10 | PN ---
Date/Time of Note Date/Time of Note DATE: 08/17/16 TIME: 11:09 Assessment/Plan Lines/Catheters IV Catheter Type (from [facility]): Saline Lock Chavez in Place (from [facility]): No Assessment/Plan Chief Complaint/Hosp Course -Chronic kidney disease stage V, impending end-stage renal disease: Fistula has not fully matured yet. S/P Maurice Catheter, S/P R IJ perm catheter -Bilateral lower extremity atherosclerosis: Will continue our vascular surveillance. No further intervention is needed at this time and will follow as an outpatient. -Continue with pulmonary toiletry -Optimize vascular status (blood pressure medications, diet, nutrition, exercise , sugar control, antiplatelets). -Discussed findings, plan and management with the patient. She understands with a certified cuff stitcher. -Thank you for allowing us to partake in the care of your patient. Please call with any questions. Problems: Subjective 24 Hr Interval Summary no new vascular events overnight, still requiring oxygen support Exam/Review of Systems Vital Signs Vitals Vital Signs Date Time Temp Pulse Resp B/P Pulse Ox O2 Delivery O2 Flow Rate FiO2 08/17/16 08:30 114 08/17/16 08:05 Nasal Cannula 3.0 08/17/16 07:58 98.5 16 108/61 95 08/14/16 04:49 33 Intake and Output 08/16/16 08/16/16 08/17/16 15:00 23:00 07:00 Intake Total 1254 ml 150 ml Output Total 8223 ml Balance 1254 ml -8073 ml Exam Free Text/Dictation GENERAL: Alert and awake not oriented PULMONARY: Bilateral crackles at the bases. CARDIOVASCULAR: S1, S2 present. ABDOMEN: Soft, nontender, nondistended. Bowel sounds positive. Truncal obesity. EXTREMITIES: LEFT UPPER EXTREMITY: Palpable brachial pulse. Motor, sensory intact. Capillary refill 2 to 3 seconds. Surgical scar well healed. Fistula with bruit and thrill present. ecchymosis at the elbow Results Result Diagram: 08/17/1662908/17/16629 ELIZA LI MD Aug 17, 2016 11:10
--- NOTE | 2016-08-17 13:34 | CONS ---
Date/Time of Note Date/Time of Note DATE: 08/17/16 TIME: 13:30 Assessment/Plan Assessment/Plan Chief Complaint/Hosp Course SUBJECTIVE: No acute changes. The patient is lying comfortably in bed, comfortable on nasal cannula. No fevers. INDWELLINGS: She has right chest PermCath, peripheral IV. ANTIMICROBIALS: 1. Vancomycin. 2. Zosyn. PHYSICAL EXAMINATION: GENERAL: Fragile, elderly woman in no distress. HEENT: Head atraumatic, normocephalic. Sclerae anicteric. Buccal mucosa dry. NECK: Supple. Trachea midline. CHEST: Rise symmetrical. Breath sounds diminished to bases. HEART: S1, S2. ABDOMEN: Soft. Bowel tones present. EXTREMITIES: Without cyanosis. ASSESSMENT: 1. Sepsis with bacteremia on admission, repeat blood cultures negative. 2. Pneumonia. 3. Pleural effusions, status post thoracentesis with pleural fluid culture results pending. Gram stain shows gram-negative rods. 4. End-stage renal disease, hemodialysis dependent. 5. Diabetes. 6. History of pancreatic stent. PLAN: The patient remains stable. Continue present care. Continue on current antibiotics. Follow cardiology, nephrology and pulmonary recommendations. Await for final pleural fluid cultures. DW staff Problems: Consultation Date/Type/Reason Admit Date/Time Jul 31, 2016 at 19:59 Initial Consult Date 08/06/16 Type of Consultation: id Referring Provider: LALA ORO Exam/Review of Systems Vital Signs Vitals Vital Signs Date Time Temp Pulse Resp B/P Pulse Ox O2 Delivery O2 Flow Rate FiO2 08/17/16 12:22 99.1 104 16 123/67 94 08/17/16 08:05 Nasal Cannula 3.0 08/14/16 04:49 33 Intake and Output 08/16/16 08/16/16 08/17/16 15:00 23:00 07:00 Intake Total 1254 ml 150 ml Output Total 8223 ml Balance 1254 ml -8073 ml Results Result Diagram: 08/17/16 0630 08/17/16 0630 Results 24 hrs Laboratory Tests Test 08/16/16 17:15 08/16/16 21:09 08/17/16 01:58 08/17/16 05:42 Bedside Glucose 130 207 175 160 Test 08/17/16 06:30 08/17/16 08:07 08/17/16 12:30 White Blood Count 14.3 #H Red Blood Count 3.17 L Hemoglobin 9.4 L Hematocrit 29.6 L Mean Corpuscular Volume 93.4 Mean Corpuscular Hemoglobin 29.7 Mean Corpuscular Hemoglobin Concent 31.8 L Red Cell Distribution Width 15.2 H Platelet Count 159 Mean Platelet Volume 10.6 H Neutrophils % 92.0 H Band Neutrophils % 1.0 Lymphocytes % 4.0 L Monocytes % 3.0 Neutrophils # 13.2 H Lymphocytes # 0.6 L Monocytes # 0.4 Sodium Level 133 L Potassium Level 3.4 L Chloride Level 100 Carbon Dioxide Level 25 Anion Gap 11 # Blood Urea Nitrogen 46 H Creatinine 3.74 H Glucose Level 171 # Calcium Level 7.7 L Bedside Glucose 178 194 Medications Medications Current Medications Atorvastatin Calcium (Lipitor) 40 mg HS PO Last administered on 08/16/16 21:12 ; Admin Dose 40 MG; Start 08/01/16 at 21:00 Calcitriol (Rocaltrol) 0.25 mcg DAILY PO Last administered on 08/17/16 09:34; Admin Dose 0.25 MCG; Start 08/01/16 at 09:00 Calcium/Vitamin D (Oyster Shell/ Vit-D (500/200)) 1 tab BID PO Last administered on 08/17/16 09:28; Admin Dose 1 TAB; Start 08/01/16 at 09:00 Hydralazine HCl (Apresoline) 50 mg Q8 PO Last administered on 08/17/16 05:46; Admin Dose 50 MG; Start 08/01/16 at 06:00 Metoprolol Tartrate (Lopressor) 25 mg BID PO Last administered on 08/17/16 09: 33; Admin Dose 25 MG; Start 08/01/16 at 09:00 Paroxetine HCl (Paxil) 10 mg DAILY PO Last administered on 08/17/16 09:31; Admin Dose 10 MG; Start 08/01/16 at 09:00 Acetaminophen (Tylenol Tab) 650 mg Q4H PRN PO PAIN AND OR ELEVATED TEMP Last administered on 08/14/16 22:09; Admin Dose 650 MG; Start 08/01/16 at 00:30 Hydralazine HCl (Apresoline) 20 mg Q6H PRN IV ELEVATED BLOOD PRESSURE Last administered on 4/3/17at 03:50; Admin Dose 20 MG; Start 08/01/16 at 00:30 Guaifenesin/ Dextromethorphan (Robitussin Dm Liquid Cup) 10 ml Q4H PRN PO COUGH Last administered on 08/10/16 09:37; Admin Dose 10 ML; Start 08/01/16 at 00:30 Epoetin Braden (Epogen (Esrd)) 6,000 units MoWeFr@17 SC Last administered on 08/16 17:25; Admin Dose 6,000 UNITS; Start 08/02/16 at 17:00 Linagliptin (Tradjenta) 5 mg DAILY PO Last administered on 08/17/16 09:31; Admin Dose 5 MG; Start 08/04/16 at 20:00 Salmeterol Xinafoate/ Fluticasone (Advair 250/50 Diskus) 1 inh BID INH Last administered on 08/17/16 09:34; Admin Dose 1 INH; Start 08/08/16 at 11:00 Montelukast Sodium (Singulair) 10 mg HS PO Last administered on 08/16/16 21:12 ; Admin Dose 10 MG; Start 08/08/16 at 21:00 Tiotropium [place] 1 inh 1 inh DAILY INH Last administered on 08/17/16 09:34; Admin Dose 1 INH; Start 08/08/16 at 11:00 Piperacillin Sod/ Tazobactam Sod (Zosyn 2.25gm/ 50ml (Pmx)) 50 ml @ 100 mls/hr Q8 IVPB Last administered on 08/17/16 05:43; Admin Dose 100 MLS/HR; Start 08/10 at 14:00 Diltiazem HCl 180 mg 180 mg DAILY PO Last administered on 08/17/16 09:34; Admin Dose 180 MG; Start 08/11/16 at 09:00 Dextrose/Sodium Chloride (D5-1/2ns) 1,000 ml @ 50 mls/hr Q20H IV Last administered on 08/17/16 10:43; Admin Dose 50 MLS/HR; Start 08/13/16 at 11:30 Insulin Aspart (Novolog Insulin Pen) NOVOLOG *MILD* ALGORI... Q4 SC Last administered on 08/17/16 12:56; Admin Dose 2 UNIT; Start 08/13/16 at 21:00 Miscellaneous Information 1 ea NOTE XX ; Start 08/13/16 at 17:30 Glucose (Glutose) 15 gm Q15M PRN PO DECREASED GLUCOSE; Start 08/13/16 at 17:30 Glucose (Glutose) 22.5 gm Q15M PRN PO DECREASED GLUCOSE; Start 08/13/16 at 17:30 Dextrose (D50w Syringe) 25 ml Q15M PRN IV DECREASED GLUCOSE; Start 08/13/16 at 17:30 Dextrose (D50w Syringe) 50 ml Q15M PRN IV DECREASED GLUCOSE; Start 08/13/16 at 17:30 Glucagon (Glucagen) 1 mg Q15M PRN IM DECREASED GLUCOSE; Start 08/13/16 at 17:30 Glucose 15 gm 15 gm Q15M PRN BUCCAL DECREASED GLUCOSE; Start 08/13/16 at 17:30 Vancomycin HCl (Vancocin) 250 ml @ 125 mls/hr Q96H IVPB Last administered on 12:01; Admin Dose 125 MLS/HR; Start 08/16/16 at 10:00 Amiodarone HCl (Cordarone) 400 mg BID PO Last administered on 08/17/16 09:33; Admin Dose 400 MG; Start 08/16/16 at 13:00 Apixaban (Eliquis) 2.5 mg BID PO Last administered on 08/17/16 09:33; Admin Dose 2.5 MG; Start 08/16/16 at 17:00 NAHUN DOWNEY NP Aug 17, 2016 13:34
[2016-08-17] MEDS: SOD CHLORIDE 0.45% 1,000 ML IV SCH (14:01)
--- NOTE | 2016-08-17 14:34 | RADRPT ---
PROCEDURE: XR Chest. CLINICAL INDICATION: Shortness of breath. TECHNIQUE: Single frontal view. COMPARISON: 08/14/2016. FINDINGS: The nasogastric tube has been removed. There is a tunneled right internal jugular vein dialysis cat heter with the tip in the upper right atrium. Bibasilar air space disease and moderate bilateral pl eural effusions are slightly worse than seen previously. The heart is enlarged. There is calcification in the aorta consistent with atherosclerosis. There is no pneumothorax. IMPRESSION: 1. Nasogastric tube removed. 2. Worse appearance of the lung bases and slightly larger bilateral pleural effusions. 3. No other change from 08/14/2016. RPTAT: QQ .Salazar Cruz MD, MD Date Time Electronically viewed and signed by .Salazar Cruz MD, MD on 08/17/2016 14:34 .R/
--- NOTE | 2016-08-17 15:42 | CONS ---
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 w/ improved dietary intake and now that, combined w/ IV dextrose resulting in mild hyperglycemia. Will d/c IV dextrose and cont. po linagliptin. Expect normalization of glycemic levels. 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 not on chronic dialysis, with long-term current use of insulin Consultation Date/Type/Reason Admit Date/Time Jul 31, 2016 at 19:59 Initial Consult Date 08/06/16 Type of Consultation: Endocrinology Reason for Consultation T2DM OOC Referring Provider: LALA ORO 24 HR Interval Summary Constitutional: improved, no complaints, requiring O2 Detailed Summary Respiratory: sputum (trouble clearing out of her chest), No cough, No shortness of breath Cardiovascular: no complaints Gastrointestinal: no complaints Genitourinary: no complaints Neurologic: no complaints Exam/Review of Systems Vital Signs Vitals VS - Last 72 Hours, by Label Date Time Temp Pulse Resp B/P Pulse Ox O2 Delivery O2 Flow Rate FiO2 08/17/16 13:43 97 3.0 08/17/16 13:43 94 22 97 Nasal Cannula 3.0 08/17/16 12:22 99.1 104 16 123/67 94 08/17/16 12:14 116 08/17/16 08:30 114 08/17/16 08:05 Nasal Cannula 3.0 08/17/16 07:58 98.5 85 16 108/61 95 08/17/16 07:30 102 17 08/17/16 07:24 93 3.0 08/17/16 07:24 93 20 93 Nasal Cannula 3.0 08/17/16 07:00 101 08/17/16 06:30 101 08/17/16 06:00 101 08/17/16 05:30 101 08/17/16 05:00 105 08/17/16 04:30 95 18 08/17/16 04:05 109 08/17/16 04:00 98.0 95 20 120/72 95 08/17/16 02:44 94 22 95 Nasal Cannula 3.0 08/17/16 02:43 3.0 08/17/16 01:03 Nasal Cannula 3.0 08/17/16 00:14 107 08/17/16 00:00 98.1 99 20 128/83 96 08/16/16 20:05 114 08/16/16 20:00 98.0 89 20 125/70 98 08/16/16 19:42 3.0 08/16/16 19:42 92 18 97 Nasal Cannula 3.0 08/16/16 16:38 97.4 93 24 122/57 96 08/16/16 16:00 112 08/16/16 14:30 3.0 08/16/16 14:26 80 20 98 Nasal Cannula 3.0 08/16/16 12:20 97.6 89 24 122/64 95 08/16/16 12:00 90 08/16/16 08:30 97 Nasal Cannula 2.0 08/16/16 08:13 98.2 96 22 120/56 90 08/16/16 08:00 90 08/16/16 07:57 84 18 97 Nasal Cannula 3.0 08/16/16 07:57 97 3.0 08/16/16 07:51 100 08/16/16 04:33 3 08/16/16 04:25 98 08/16/16 02:27 82 18 Nasal Cannula 3.0 08/16/16 02:26 3.0 08/16/16 01:30 Nasal Cannula 3.0 08/16/16 00:32 80 08/16/16 00:15 97.5 83 15 117/57 93 Nasal Cannula 2.0 08/16/16 00:11 3.0 08/15/16 23:45 91 25 141/61 94 08/15/16 23:30 81 19 125/60 97 08/15/16 23:15 83 20 141/63 94 08/15/16 23:00 91 19 128/60 96 08/15/16 22:45 93 11 124/61 96 08/15/16 22:30 88 18 128/52 96 08/15/16 22:15 95 16 141/54 96 08/15/16 22:00 95 20 127/72 96 08/15/16 21:45 102 20 118/60 96 08/15/16 21:30 107 23 129/55 95 08/15/16 21:15 91 23 139/60 96 08/15/16 21:00 96 16 130/65 95 08/15/16 20:47 3.0 08/15/16 20:37 98 4.0 08/15/16 20:35 94 19 98 Nasal Cannula 4.0 08/15/16 20:30 97 14 120/66 97 08/15/16 20:15 93 17 145/72 97 08/15/16 20:00 85 08/15/16 20:00 Nasal Cannula 3.0 08/15/16 20:00 92 19 130/61 96 Nasal Cannula 08/15/16 19:45 88 21 126/65 97 08/15/16 19:30 97 25 143/65 97 Nasal Cannula 08/15/16 19:15 94 20 129/65 96 08/15/16 19:00 98.0 86 22 119/63 97 Nasal Cannula 08/15/16 17:30 88 18 141/60 93 08/15/16 17:15 86 23 123/59 95 08/15/16 17:00 88 20 134/62 94 08/15/16 16:45 91 19 126/61 97 08/15/16 16:30 80 19 111/64 98 08/15/16 16:23 3 08/15/16 16:15 98.6 82 18 108/65 96 08/15/16 16:00 81 08/15/16 16:00 81 19 111/59 95 08/15/16 15:45 97 16 125/62 95 08/15/16 15:30 86 21 134/64 93 08/15/16 15:15 105 21 125/62 94 08/15/16 15:00 111/55 08/15/16 14:45 99 24 92 08/15/16 14:30 106 20 121/63 92 08/15/16 14:15 110 19 95 08/15/16 14:12 108 28 96 Nasal Cannula 4.0 08/15/16 14:00 113 19 145/109 91 08/15/16 13:45 106 22 91 08/15/16 13:30 106 18 133/71 08/15/16 13:15 114 16 97 08/15/16 13:00 98.8 97 18 123/68 97 Nasal Cannula 4.0 08/15/16 12:00 113 15 128/62 98 Nasal Cannula 3.0 08/15/16 12:00 137 08/15/16 11:48 3 08/15/16 11:30 103 19 107/53 98 Nasal Cannula 4.0 08/15/16 11:15 101 12 129/55 97 Nasal Cannula 4.0 08/15/16 11:15 152 29 08/15/16 11:15 152 08/15/16 11:00 125 21 100/55 98 Nasal Cannula 4.0 08/15/16 10:45 106 17 92/67 97 Nasal Cannula 4.0 08/15/16 10:40 155 08/15/16 10:30 123 19 124/59 98 Nasal Cannula 4.0 08/15/16 10:15 149 08/15/16 10:15 137 19 08/15/16 10:00 133 22 91/52 98 Nasal Cannula 4.0 08/15/16 09:45 106 17 104/56 96 Nasal Cannula 4.0 08/15/16 09:45 129 08/15/16 09:30 138 21 91/54 95 Nasal Cannula 4.0 08/15/16 09:15 95 08/15/16 09:15 108 24 113/58 96 Nasal Cannula 4.0 08/15/16 09:00 3 08/15/16 09:00 112 19 129/57 93 Nasal Cannula 4.0 08/15/16 08:45 95 24 08/15/16 08:45 95 08/15/16 08:00 107 08/15/16 08:00 98.7 128 12 130/68 98 Nasal Cannula 4.0 08/15/16 08:00 Nasal Cannula 3.0 08/15/16 07:34 89 16 96 Nasal Cannula 4.0 08/15/16 07:00 98 16 105/49 99 Nasal Cannula 4.0 08/15/16 06:00 99 18 109/56 97 Nasal Cannula 4.0 08/15/16 05:45 109 21 114/63 90 08/15/16 05:30 93 17 92/43 96 08/15/16 05:15 101 9 82/40 08/15/16 05:00 92 14 103/40 96 Nasal Cannula 2.0 08/15/16 04:45 91 97/39 98 08/15/16 04:30 101 16 105/39 08/15/16 04:15 99 91/41 93 08/15/16 04:00 111 08/15/16 04:00 97.8 96 12 90/39 98 Nasal Cannula 2.0 08/15/16 03:45 104 8 92/38 99 08/15/16 03:30 103 94/41 98 08/15/16 03:15 101 11 95/46 99 08/15/16 03:00 88 12 108/43 99 Nasal Cannula 4.0 08/15/16 02:45 93 80/37 98 08/15/16 02:30 89 18 83/39 97 08/15/16 02:15 101 27 144/53 84 08/15/16 02:00 104 19 111/45 98 Nasal Cannula 4.0 08/15/16 01:45 88 12 108/49 98 08/15/16 01:30 84 19 98/46 99 08/15/16 01:15 94 20 103/53 99 08/15/16 01:10 98 4.0 08/15/16 01:10 84 16 98 Nasal Cannula 4.0 08/15/16 01:00 78 16 105/47 99 Nasal Cannula 4.0 08/15/16 00:45 88 17 95/44 99 08/15/16 00:30 77 17 94/44 99 08/15/16 00:15 80 20 91/44 99 08/15/16 00:00 80 08/15/16 00:00 97.8 84 19 102/50 99 Nasal Cannula 4.0 08/14/16 23:45 81 19 101/49 99 08/14/16 23:30 92 19 93/48 99 08/14/16 23:15 87 18 89/48 99 08/14/16 23:00 83 17 97/53 98 Nasal Cannula 4.0 08/14/16 22:45 70 21 94/50 99 08/14/16 22:30 85 21 93/51 98 08/14/16 22:15 81 18 132/59 95 08/14/16 22:00 80 21 121/54 99 Nasal Cannula 4.0 08/14/16 21:45 93 17 103/54 98 08/14/16 21:30 88 23 107/55 98 08/14/16 21:15 90 21 99/51 98 08/14/16 21:00 87 20 95/49 96 Nasal Cannula 4.0 08/14/16 20:30 105 21 142/49 90 08/14/16 20:02 88 20 98 Nasal Cannula 4.0 08/14/16 20:02 98 4.0 08/14/16 20:00 Nasal Cannula 4.0 08/14/16 20:00 100 08/14/16 20:00 97.5 98 29 128/59 96 Nasal Cannula 4.0 08/14/16 19:45 92 21 128/57 96 08/14/16 19:30 94 19 114/57 96 08/14/16 19:15 82 23 118/55 96 Nasal Cannula 08/14/16 19:00 90 18 120/52 96 08/14/16 18:45 94 15 124/51 93 08/14/16 18:30 99 18 130/58 97 08/14/16 18:15 92 25 127/58 95 08/14/16 18:00 89 22 119/55 96 08/14/16 17:45 99 22 121/57 97 08/14/16 17:42 4.0 08/14/16 17:30 97 29 137/57 94 08/14/16 17:15 103 28 119/53 94 08/14/16 17:00 101 21 120/47 96 08/14/16 16:52 2 08/14/16 16:45 89 16 110/48 95 08/14/16 16:30 91 24 106/45 96 08/14/16 16:15 94 22 105/50 97 08/14/16 16:00 98 08/14/16 16:00 98.5 84 22 114/44 97 08/14/16 15:45 93 14 127/51 96 Vital Signs Date Time Temp Pulse Resp B/P Pulse Ox O2 Delivery O2 Flow Rate FiO2 08/17/16 13:43 97 3.0 08/17/16 13:43 94 22 Nasal Cannula 08/17/16 12:22 99.1 123/67 08/14/16 04:49 33 Intake and Output 08/16/16 08/16/16 08/17/16 15:00 23:00 07:00 Intake Total 1254 ml 150 ml Output Total 8223 ml Balance 1254 ml -8073 ml Exam Constitutional: alert, frail, obese, oriented Psych: nl mood/affect, no complaints Respiratory: clear to auscultation, normal air movement Cardiovascular: nl pulses, regular rate and rhythm, No edema, No murmurs/extra sounds, No rub Gastrointestinal: bowel sounds, nl liver, spleen, non-tender, soft, No mass, No rebound or guarding Musculoskeletal: nl extremities to inspection Extremities: normal pulses, No clubbing, No cyanosis, No edema 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: [employer] II-XII intact, nl mental status, nl speech, nl strength Additional Comments Bedside Glucose - 72 Hours Test 08/14/16 17:28 08/14/16 20:27 08/15/16 01:04 08/15/16 04:49 Bedside Glucose 121mg/dL (70-220) 118mg/dL (70-220) 83mg/dL (70-220) 149mg/dL (70-220) Test 08/15/16 07:55 08/15/16 12:29 08/15/16 17:09 08/15/16 21:00 Bedside Glucose 103mg/dL (70-220) 156mg/dL (70-220) 176mg/dL (70-220) 164mg/dL (70-220) Test 08/16/16 02:19 08/16/16 05:28 08/16/16 08:08 08/16/16 12:14 Bedside Glucose 143mg/dL (70-220) 168mg/dL (70-220) 169mg/dL (70-220) 169mg/dL (70-220) Test 08/16/16 17:15 08/16/16 21:09 08/17/16 01:58 08/17/16 05:42 Bedside Glucose 130mg/dL (70-220) 207mg/dL (70-220) 175mg/dL (70-220) 160mg/dL (70-220) Test 08/17/16 08:07 08/17/16 12:30 Bedside Glucose 178mg/dL (70-220) 194mg/dL (70-220) Results Result Diagram: 08/17/1630 08/17/16 0630 Results 24 hrs Laboratory Tests Test 08/16/16 17:15 08/16/16 21:09 08/17/16 01:58 08/17/16 05:42 Bedside Glucose 130 207 175 160 Test 08/17/16 06:30 08/17/16 08:07 08/17/16 12:30 White Blood Count 14.3 #H Red Blood Count 3.17 L Hemoglobin 9.4 L Hematocrit 29.6 L Mean Corpuscular Volume 93.4 Mean Corpuscular Hemoglobin 29.7 Mean Corpuscular Hemoglobin Concent 31.8 L Red Cell Distribution Width 15.2 H Platelet Count 159 Mean Platelet Volume 10.6 H Neutrophils % 92.0 H Band Neutrophils % 1.0 Lymphocytes % 4.0 L Monocytes % 3.0 Neutrophils # 13.2 H Lymphocytes # 0.6 L Monocytes # 0.4 Sodium Level 133 L Potassium Level 3.4 L Chloride Level 100 Carbon Dioxide Level 25 Anion Gap 11 # Blood Urea Nitrogen 46 H Creatinine 3.74 H Glucose Level 171 # Calcium Level 7.7 L Bedside Glucose 178 194 Medications Medications Current Medications Atorvastatin Calcium (Lipitor) 40 mg HS PO Last administered on 08/16/16 21:12 ; Admin Dose 40 MG; Start 08/01/16 at 21:00 Calcitriol (Rocaltrol) 0.25 mcg DAILY PO Last administered on 08/17/16 09:34; Admin Dose 0.25 MCG; Start 08/01/16 at 09:00 Calcium/Vitamin D (Oyster Shell/ Vit-D (500/200)) 1 tab BID PO Last administered on 08/17/16 09:28; Admin Dose 1 TAB; Start 08/01/16 at 09:00 Hydralazine HCl (Apresoline) 50 mg Q8 PO Last administered on 08/17/16 14:01; Admin Dose 50 MG; Start 08/01/16 at 06:00 Metoprolol Tartrate (Lopressor) 25 mg BID PO Last administered on 08/17/16 09: 33; Admin Dose 25 MG; Start 08/01/16 at 09:00 Paroxetine HCl (Paxil) 10 mg DAILY PO Last administered on 08/17/16 09:31; Admin Dose 10 MG; Start 08/01/16 at 09:00 Acetaminophen (Tylenol Tab) 650 mg Q4H PRN PO PAIN AND OR ELEVATED TEMP Last administered on 08/14/16 22:09; Admin Dose 650 MG; Start 08/01/16 at 00:30 Hydralazine HCl (Apresoline) 20 mg Q6H PRN IV ELEVATED BLOOD PRESSURE Last administered on 08/09/16 03:50; Admin Dose 20 MG; Start 08/01/16 at 00:30 Guaifenesin/ Dextromethorphan (Robitussin Dm Liquid Cup) 10 ml Q4H PRN PO COUGH Last administered on 08/10/16 09:37; Admin Dose 10 ML; Start 08/01/16 at 00:30 Epoetin Braden (Epogen (Esrd)) 6,000 units MoWeFr@17 SC Last administered on 08/16 17:25; Admin Dose 6,000 UNITS; Start 08/02/16 at 17:00 Linagliptin (Tradjenta) 5 mg DAILY PO Last administered on 08/17/16 09:31; Admin Dose 5 MG; Start 08/04/16 at 20:00 Salmeterol Xinafoate/ Fluticasone (Advair 250/50 Diskus) 1 inh BID INH Last administered on 08/17/16 09:34; Admin Dose 1 INH; Start 08/08/16 at 11:00 Montelukast Sodium (Singulair) 10 mg HS PO Last administered on 08/16/16 21:12 ; Admin Dose 10 MG; Start 08/08/16 at 21:00 Tiotropium [place] 1 inh 1 inh DAILY INH Last administered on 08/17/16 09:34; Admin Dose 1 INH; Start 08/08/16 at 11:00 Piperacillin Sod/ Tazobactam Sod (Zosyn 2.25gm/ 50ml (Pmx)) 50 ml @ 100 mls/hr Q8 IVPB Last administered on 08/17/16 13:59; Admin Dose 100 MLS/HR; Start 08/10 at 14:00 Diltiazem HCl (Cardizem Cd) 180 mg DAILY PO Last administered on 08/17/16 09: 34; Admin Dose 180 MG; Start 08/11/16 at 09:00 Insulin Aspart (Novolog Insulin Pen) NOVOLOG *MILD* ALGORI... Q4 SC Last administered on 08/17/16 12:56; Admin Dose 2 UNIT; Start 08/13/16 at 21:00 Miscellaneous Information 1 ea NOTE XX ; Start 08/13/16 at 17:30 Glucose (Glutose) 15 gm Q15M PRN PO DECREASED GLUCOSE; Start 08/13/16 at 17:30 Glucose (Glutose) 22.5 gm Q15M PRN PO DECREASED GLUCOSE; Start 08/13/16 at 17:30 Dextrose (D50w Syringe) 25 ml Q15M PRN IV DECREASED GLUCOSE; Start 08/13/16 at 17:30 Dextrose (D50w Syringe) 50 ml Q15M PRN IV DECREASED GLUCOSE; Start 08/13/16 at 17:30 Glucagon (Glucagen) 1 mg Q15M PRN IM DECREASED GLUCOSE; Start 08/13/16 at 17:30 Glucose 15 gm 15 gm Q15M PRN BUCCAL DECREASED GLUCOSE; Start 08/13/16 at 17:30 Vancomycin HCl (Vancocin) 250 ml @ 125 mls/hr Q96H IVPB Last administered on 12:01; Admin Dose 125 MLS/HR; Start 08/16/16 at 10:00 Amiodarone HCl (Cordarone) 400 mg BID PO Last administered on 08/17/16 09:33; Admin Dose 400 MG; Start 08/16/16 at 13:00 Apixaban 2.5 mg 2.5 mg BID PO Last administered on 08/17/16 09:33; Admin Dose 2.5 MG; Start 08/16/16 at 17:00 Sodium Chloride (1/2 NS) 1,000 ml @ 50 mls/hr Q20H IV Last administered on 14:01; Admin Dose 50 MLS/HR; Start 08/17/16 at 14:00 JUDAH NOE MD Aug 17, 2016 15:42
[2016-08-17] MEDS ORDERED: REPAGLINIDE 1 MG TAB PO SCH (17:25)
--- NOTE | 2016-08-17 18:14 | CONS ---
Date/Time of Note Date/Time of Note DATE: 08/17/16 TIME: 18:14 Assessment/Plan Assessment/Plan Chief Complaint/Hosp Course IMPRESSION: 1. End-stage renal disease stage V. 2. Fluid overload.better 3. Pulmonary edema./pleural effusion/lung infilterate 4. Anemia of chronic kidney disease. 5. History of diabetes mellitus. 6. 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 7. AV fistula on the left upper extremity. 8 pneumonia/bronchites 9 thoracentesis s/p plan continue hd fluis res antibiotic kcl Problems: Consultation Date/Type/Reason Admit Date/Time Jul 31, 2016 at 19:59 Initial Consult Date 08/01/16 Type of Consultation: renal Referring Provider: LALA ORO 24 HR Interval Summary Constitutional: no complaints Exam/Review of Systems Vital Signs Vitals Vital Signs Date Time Temp Pulse Resp B/P Pulse Ox O2 Delivery O2 Flow Rate FiO2 08/17/16 16:20 136 08/17/16 16:09 99.5 16 114/55 93 08/17/16 13:43 3.0 08/17/16 13:43 Nasal Cannula 08/14/16 04:49 33 Intake and Output 08/16/16 08/16/16 08/17/16 15:00 23:00 07:00 Intake Total 1254 ml 150 ml Output Total 8223 ml Balance 1254 ml -8073 ml Exam Respiratory: clear to auscultation Cardiovascular: regular rate and rhythm Gastrointestinal: soft Musculoskeletal: nl extremities to inspection Extremities: normal pulses Results Result Diagram: 08/17/16 0630 08/17/16 0630 Results 24 hrs Laboratory Tests Test 08/16/16 21:09 08/17/16 01:58 08/17/16 05:42 08/17/16 06:30 Bedside Glucose 207 175 160 White Blood Count 14.3 #H Red Blood Count 3.17 L Hemoglobin 9.4 L Hematocrit 29.6 L Mean Corpuscular Volume 93.4 Mean Corpuscular Hemoglobin 29.7 Mean Corpuscular Hemoglobin Concent 31.8 L Red Cell Distribution Width 15.2 H Platelet Count 159 Mean Platelet Volume 10.6 H Neutrophils % 92.0 H Band Neutrophils % 1.0 Lymphocytes % 4.0 L Monocytes % 3.0 Neutrophils # 13.2 H Lymphocytes # 0.6 L Monocytes # 0.4 Sodium Level 133 L Potassium Level 3.4 L Chloride Level 100 Carbon Dioxide Level 25 Anion Gap 11 # Blood Urea Nitrogen 46 H Creatinine 3.74 H Glucose Level 171 # Calcium Level 7.7 L Test 08/17/16 08:07 08/17/16 12:30 08/17/16 17:58 Bedside Glucose 178 194 190 Medications Medications Current Medications Atorvastatin Calcium (Lipitor) 40 mg HS PO Last administered on 08/16/16 21:12 ; Admin Dose 40 MG; Start 08/01/16 at 21:00 Calcitriol (Rocaltrol) 0.25 mcg DAILY PO Last administered on 08/17/16 09:34; Admin Dose 0.25 MCG; Start 08/01/16 at 09:00 Calcium/Vitamin D (Oyster Shell/ Vit-D (500/200)) 1 tab BID PO Last administered on 08/17/16 09:28; Admin Dose 1 TAB; Start 08/01/16 at 09:00 Hydralazine HCl (Apresoline) 50 mg Q8 PO Last administered on 08/17/16 14:01; Admin Dose 50 MG; Start 08/01/16 at 06:00 Metoprolol Tartrate (Lopressor) 25 mg BID PO Last administered on 08/17/16 09: 33; Admin Dose 25 MG; Start 08/01/16 at 09:00 Paroxetine HCl (Paxil) 10 mg DAILY PO Last administered on 08/17/16 09:31; Admin Dose 10 MG; Start 08/01/16 at 09:00 Acetaminophen (Tylenol Tab) 650 mg Q4H PRN PO PAIN AND OR ELEVATED TEMP Last administered on 08/14/16 22:09; Admin Dose 650 MG; Start 08/01/16 at 00:30 Hydralazine HCl (Apresoline) 20 mg Q6H PRN IV ELEVATED BLOOD PRESSURE Last administered on 08/09/16 03:50; Admin Dose 20 MG; Start 08/01/16 at 00:30 Guaifenesin/ Dextromethorphan (Robitussin Dm Liquid Cup) 10 ml Q4H PRN PO COUGH Last administered on 08/10/16 09:37; Admin Dose 10 ML; Start 08/01/16 at 00:30 Epoetin Braden (Epogen (Esrd)) 6,000 units MoWeFr@17 SC Last administered on 08/16 17:25; Admin Dose 6,000 UNITS; Start 08/02/16 at 17:00 Linagliptin (Tradjenta) 5 mg DAILY PO Last administered on 08/17/16 09:31; Admin Dose 5 MG; Start 08/04/16 at 20:00 Salmeterol Xinafoate/ Fluticasone (Advair 250/50 Diskus) 1 inh BID INH Last administered on 08/17/16 09:34; Admin Dose 1 INH; Start 08/08/16 at 11:00 Montelukast Sodium (Singulair) 10 mg HS PO Last administered on 08/16/16 21:12 ; Admin Dose 10 MG; Start 08/08/16 at 21:00 Tiotropium [place] 1 inh 1 inh DAILY INH Last administered on 08/17/16 09:34; Admin Dose 1 INH; Start 08/08/16 at 11:00 Piperacillin Sod/ Tazobactam Sod (Zosyn 2.25gm/ 50ml (Pmx)) 50 ml @ 100 mls/hr Q8 IVPB Last administered on 08/17/16 13:59; Admin Dose 100 MLS/HR; Start 08/10 at 14:00 Diltiazem HCl (Cardizem Cd) 180 mg DAILY PO Last administered on 08/17/16 09: 34; Admin Dose 180 MG; Start 08/11/16 at 09:00 Insulin Aspart (Novolog Insulin Pen) NOVOLOG *MILD* ALGORI... Q4 SC Last administered on 08/17/16 18:02; Admin Dose 2 UNIT; Start 08/13/16 at 21:00 Miscellaneous Information 1 ea NOTE XX ; Start 08/13/16 at 17:30 Glucose (Glutose) 15 gm Q15M PRN PO DECREASED GLUCOSE; Start 08/13/16 at 17:30 Glucose (Glutose) 22.5 gm Q15M PRN PO DECREASED GLUCOSE; Start 08/13/16 at 17:30 Dextrose (D50w Syringe) 25 ml Q15M PRN IV DECREASED GLUCOSE; Start 08/13/16 at 17:30 Dextrose (D50w Syringe) 50 ml Q15M PRN IV DECREASED GLUCOSE; Start 08/13/16 at 17:30 Glucagon (Glucagen) 1 mg Q15M PRN IM DECREASED GLUCOSE; Start 08/13/16 at 17:30 Glucose 15 gm 15 gm Q15M PRN BUCCAL DECREASED GLUCOSE; Start 08/13/16 at 17:30 Vancomycin HCl (Vancocin) 250 ml @ 125 mls/hr Q96H IVPB Last administered on 12:01; Admin Dose 125 MLS/HR; Start 08/16/16 at 10:00 Amiodarone HCl 400 mg 400 mg BID PO Last administered on 08/17/16 09:33; Admin Dose 400 MG; Start 08/16/16 at 13:00 Sodium Chloride (1/2 NS) 1,000 ml @ 50 mls/hr Q20H IV Last administered on 14:01; Admin Dose 50 MLS/HR; Start 08/17/16 at 14:00 Apixaban (Eliquis) 5 mg BID PO ; Start 08/17/16 at 21:00 DAT OLSON MD Aug 17, 2016 18:14
--- NOTE | 2016-08-17 18:21 | CONS ---
Date/Time of Note Date/Time of Note DATE: 08/17/16 TIME: 18:17 Assessment/Plan Assessment/Plan Additional Assessment/Plan Acute exacerbation of CHF Atrial fibrillation Pleural effusion s/p thoracentesis ESRD on HD Hypertension Diabetes Dyslipidemia Anemia Leucocytosis Atrial fibrillation RVR Heart failure clinically compensated Started on Digoxin Started on Metoprolol Continue amiodarone Continue HD as scheduled Continue Antibiotics Continue Metoprolol Continue Tradjenta Continue Lipitor Continue Eliquis Replete Potassium Consultation Date/Type/Reason Admit Date/Time Jul 31, 2016 at 19:59 Initial Consult Date 08/13/16 Type of Consultation: renal Referring Provider: LALA ORO Exam/Review of Systems Vital Signs Vitals Vital Signs Date Time Temp Pulse Resp B/P Pulse Ox O2 Delivery O2 Flow Rate FiO2 08/17/16 16:20 136 08/17/16 16:09 99.5 16 114/55 93 08/17/16 13:43 3.0 08/17/16 13:43 Nasal Cannula 08/14/16 04:49 33 Intake and Output 08/16/16 08/16/16 08/17/16 15:00 23:00 07:00 Intake Total 1254 ml 150 ml Output Total 8223 ml Balance 1254 ml -8073 ml Exam Head: atraumatic, normocephalic Neck: non-tender, supple Respiratory: diminished breath sounds Cardiovascular: irregular rhythm Gastrointestinal: nl liver, spleen, non-tender, soft Extremities: normal pulses Results Result Diagram: 08/17/16 0630 08/17/16 0630 Results 24 hrs Laboratory Tests Test 08/16/16 21:09 08/17/16 01:58 08/17/16 05:42 08/17/16 06:30 Bedside Glucose 207 175 160 White Blood Count 14.3 #H Red Blood Count 3.17 L Hemoglobin 9.4 L Hematocrit 29.6 L Mean Corpuscular Volume 93.4 Mean Corpuscular Hemoglobin 29.7 Mean Corpuscular Hemoglobin Concent 31.8 L Red Cell Distribution Width 15.2 H Platelet Count 159 Mean Platelet Volume 10.6 H Neutrophils % 92.0 H Band Neutrophils % 1.0 Lymphocytes % 4.0 L Monocytes % 3.0 Neutrophils # 13.2 H Lymphocytes # 0.6 L Monocytes # 0.4 Sodium Level 133 L Potassium Level 3.4 L Chloride Level 100 Carbon Dioxide Level 25 Anion Gap 11 # Blood Urea Nitrogen 46 H Creatinine 3.74 H Glucose Level 171 # Calcium Level 7.7 L Test 08/17/16 08:07 08/17/16 12:30 08/17/16 17:58 Bedside Glucose 178 194 190 Medications Medications Current Medications Atorvastatin Calcium (Lipitor) 40 mg HS PO Last administered on 08/16/16 21:12 ; Admin Dose 40 MG; Start 08/01/16 at 21:00 Calcitriol (Rocaltrol) 0.25 mcg DAILY PO Last administered on 08/17/16 09:34; Admin Dose 0.25 MCG; Start 08/01/16 at 09:00 Calcium/Vitamin D (Oyster Shell/ Vit-D (500/200)) 1 tab BID PO Last administered on 08/17/16 09:28; Admin Dose 1 TAB; Start 08/01/16 at 09:00 Hydralazine HCl (Apresoline) 50 mg Q8 PO Last administered on 08/17/16 14:01; Admin Dose 50 MG; Start 08/01/16 at 06:00 Metoprolol Tartrate (Lopressor) 25 mg BID PO Last administered on 08/17/16 09: 33; Admin Dose 25 MG; Start 08/01/16 at 09:00 Paroxetine HCl (Paxil) 10 mg DAILY PO Last administered on 08/17/16 09:31; Admin Dose 10 MG; Start 08/01/16 at 09:00 Acetaminophen (Tylenol Tab) 650 mg Q4H PRN PO PAIN AND OR ELEVATED TEMP Last administered on 08/14/16 22:09; Admin Dose 650 MG; Start 08/01/16 at 00:30 Hydralazine HCl (Apresoline) 20 mg Q6H PRN IV ELEVATED BLOOD PRESSURE Last administered on 08/09/16 03:50; Admin Dose 20 MG; Start 08/01/16 at 00:30 Guaifenesin/ Dextromethorphan (Robitussin Dm Liquid Cup) 10 ml Q4H PRN PO COUGH Last administered on 08/10/16 09:37; Admin Dose 10 ML; Start 08/01/16 at 00:30 Epoetin Braden (Epogen (Esrd)) 6,000 units MoWeFr@17 SC Last administered on 08/16 17:25; Admin Dose 6,000 UNITS; Start 08/02/16 at 17:00 Linagliptin (Tradjenta) 5 mg DAILY PO Last administered on 08/17/16 09:31; Admin Dose 5 MG; Start 08/04/16 at 20:00 Salmeterol Xinafoate/ Fluticasone (Advair 250/50 Diskus) 1 inh BID INH Last administered on 08/17/16 09:34; Admin Dose 1 INH; Start 08/08/16 at 11:00 Montelukast Sodium (Singulair) 10 mg HS PO Last administered on 08/16/16 21:12 ; Admin Dose 10 MG; Start 08/08/16 at 21:00 Tiotropium [place] 1 inh 1 inh DAILY INH Last administered on 08/17/16 09:34; Admin Dose 1 INH; Start 08/08/16 at 11:00 Piperacillin Sod/ Tazobactam Sod (Zosyn 2.25gm/ 50ml (Pmx)) 50 ml @ 100 mls/hr Q8 IVPB Last administered on 08/17/16 13:59; Admin Dose 100 MLS/HR; Start 08/10 at 14:00 Diltiazem HCl (Cardizem Cd) 180 mg DAILY PO Last administered on 08/17/16 09: 34; Admin Dose 180 MG; Start 08/11/16 at 09:00 Insulin Aspart (Novolog Insulin Pen) NOVOLOG *MILD* ALGORI... Q4 SC Last administered on 08/17/16 18:02; Admin Dose 2 UNIT; Start 08/13/16 at 21:00 Miscellaneous Information 1 ea NOTE XX ; Start 08/13/16 at 17:30 Glucose (Glutose) 15 gm Q15M PRN PO DECREASED GLUCOSE; Start 08/13/16 at 17:30 Glucose (Glutose) 22.5 gm Q15M PRN PO DECREASED GLUCOSE; Start 08/13/16 at 17:30 Dextrose (D50w Syringe) 25 ml Q15M PRN IV DECREASED GLUCOSE; Start 08/13/16 at 17:30 Dextrose (D50w Syringe) 50 ml Q15M PRN IV DECREASED GLUCOSE; Start 08/13/16 at 17:30 Glucagon (Glucagen) 1 mg Q15M PRN IM DECREASED GLUCOSE; Start 08/13/16 at 17:30 Glucose 15 gm 15 gm Q15M PRN BUCCAL DECREASED GLUCOSE; Start 08/13/16 at 17:30 Vancomycin HCl (Vancocin) 250 ml @ 125 mls/hr Q96H IVPB Last administered on 12:01; Admin Dose 125 MLS/HR; Start 08/16/16 at 10:00 Amiodarone HCl 400 mg 400 mg BID PO Last administered on 08/17/16 09:33; Admin Dose 400 MG; Start 08/16/16 at 13:00 Sodium Chloride (1/2 NS) 1,000 ml @ 50 mls/hr Q20H IV Last administered on 14:01; Admin Dose 50 MLS/HR; Start 08/17/16 at 14:00 Apixaban (Eliquis) 5 mg BID PO ; Start 08/17/16 at 21:00 Potassium Chloride (Klor-Con 10) 30 meq ONCE ONCE PO ; Start 08/17/16 at 18:30 ; Stop 08/17/16 at 18:31 FRAN LÓPEZ M.D. Aug 17, 2016 18:21
[2016-08-17] MEDS ORDERED: POTASSIUM CHLORIDE (SR) 10 MEQ TAB PO ONE (18:30)
[2016-08-17] MEDS ORDERED: POTASSIUM CHLORIDE 250 ML IVPB ONE (18:30)
--- NOTE | 2016-08-17 19:42 | PN ---
Date/Time of Note Date/Time of Note DATE: 08/17/16 TIME: 19:40 Assessment/Plan VTE Prophylaxis VTE Prophylaxis Intervention: SCD's Lines/Catheters IV C[facility]ter Type [facility]from [facility] Sal[facility] Lock Urinary Cath still in place: No Assessment/Plan Assessment/Plan -Acute respiratory insufficiency secondary to pneumonia and COPD exacerbation. - Right-sided pneumonia per CT scan, continue cefepime. - A-fib with RVR, continue Cardizem, patient is followed by Dr. Stuart in cardiology. - COPD exacerbation, continue breathing treatment. Dr. Natarajan is following in pulmonology consultation - End-stage renal disease stage V. Dr. Leon is following in nephrology consultation. Continue to hemodialysis via right femoral hemodialysis catheter. - Pulmonary edema. Continue diuresis. - per pulmonary -per CXR- Worse appearance of the lung bases and slightly larger bilateral pleural effusions.No other change from 08/14/2016. - Anemia of chronic kidney disease. Continue Epogen. - Diabetes mellitus type [address] Garcia is following an endocrinology consultation. Continue NPH. - Hypertension, continue Norvasc. -Left upper extremity AV fistula, non-matured -Status post right hemodialysis non-tunneled catheter placement by Dr. Manning on 08/03. S/p R IJ tunneled hemodialysis catheter placement. - Hypokalemia- replet K, AM LABS Further treatment depends upon patient's clnical course. Plan of care Dr Flores/staff Subjective 24 Hr Interval Summary Eyes: no complaints ENT: no complaints Respiratory: shortness of breath Cardiovascular: no complaints Gastrointestinal: no complaints Musculoskeletal: no complaints Skin: no complaints Neurologic: no complaints Endocrine: no complaints Lymphatic: no complaints Exam/Review of Systems Vital Signs Vitals Vital Signs Date Time Temp Pulse Resp B/P Pulse Ox O2 Delivery O2 Flow Rate FiO2 08/17/16 19:22 104 20 92 Nasal Cannula 3.0 08/17/16 16:09 99.5 114/55 08/14/16 04:49 33 Intake and Output 08/16/16 08/16/16 08/17/16 15:00 23:00 07:00 Intake Total 1254 ml 150 ml Output Total 8223 ml Balance 1254 ml -8073 ml Exam Constitutional: alert, oriented, well developed Psych: nl mood/affect Head: atraumatic Eyes: EOMI, nl sclera ENMT: nl external ears & nose Respiratory: diminished breath sounds Cardiovascular: nl pulses Gastrointestinal: non-tender, soft Musculoskeletal: nl extremities to inspection Extremities: normal pulses 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: nl speech, other Skin: nl turgor Lymph: nontender Results Result Diagram: 08/17/16 0630 08/17/16 0630 Results 24 hrs Laboratory Tests Test 08/16/16 21:09 08/17/16 01:58 08/17/16 05:42 08/17/16 06:30 Bedside Glucose 207 175 160 White Blood Count 14.3 #H Red Blood Count 3.17 L Hemoglobin 9.4 L Hematocrit 29.6 L Mean Corpuscular Volume 93.4 Mean Corpuscular Hemoglobin 29.7 Mean Corpuscular Hemoglobin Concent 31.8 L Red Cell Distribution Width 15.2 H Platelet Count 159 Mean Platelet Volume 10.6 H Neutrophils % 92.0 H Band Neutrophils % 1.0 Lymphocytes % 4.0 L Monocytes % 3.0 Neutrophils # 13.2 H Lymphocytes # 0.6 L Monocytes # 0.4 Sodium Level 133 L Potassium Level 3.4 L Chloride Level 100 Carbon Dioxide Level 25 Anion Gap 11 # Blood Urea Nitrogen 46 H Creatinine 3.74 H Glucose Level 171 # Calcium Level 7.7 L Test 08/17/16 08:07 08/17/16 12:30 08/17/16 17:58 Bedside Glucose 178 194 190 Medications Medications Current Medications Atorvastatin Calcium (Lipitor) 40 mg HS PO Last administered on 08/16/16 21:12 ; Admin Dose 40 MG; Start 08/01/16 at 21:00 Calcitriol (Rocaltrol) 0.25 mcg DAILY PO Last administered on 08/17/16 09:34; Admin Dose 0.25 MCG; Start 08/01/16 at 09:00 Calcium/Vitamin D (Oyster Shell/ Vit-D (500/200)) 1 tab BID PO Last administered on 08/17/16 09:28; Admin Dose 1 TAB; Start 08/01/16 at 09:00 Hydralazine HCl (Apresoline) 50 mg Q8 PO Last administered on 08/17/16 14:01; Admin Dose 50 MG; Start 08/01/16 at 06:00 Paroxetine HCl (Paxil) 10 mg DAILY PO Last administered on 08/17/16 09:31; Admin Dose 10 MG; Start 08/01/16 at 09:00 Acetaminophen (Tylenol Tab) 650 mg Q4H PRN PO PAIN AND OR ELEVATED TEMP Last administered on 08/14/16 22:09; Admin Dose 650 MG; Start 08/01/16 at 00:30 Hydralazine HCl (Apresoline) 20 mg Q6H PRN IV ELEVATED BLOOD PRESSURE Last administered on 08/09/16 03:50; Admin Dose 20 MG; Start 08/01/16 at 00:30 Guaifenesin/ Dextromethorphan (Robitussin Dm Liquid Cup) 10 ml Q4H PRN PO COUGH Last administered on 08/10/16 09:37; Admin Dose 10 ML; Start 08/01/16 at 00:30 Epoetin Braden (Epogen (Esrd)) 6,000 units MoWeFr@17 SC Last administered on 08/16 17:25; Admin Dose 6,000 UNITS; Start 08/02/16 at 17:00 Linagliptin (Tradjenta) 5 mg DAILY PO Last administered on 08/17/16 09:31; Admin Dose 5 MG; Start 08/04/16 at 20:00 Salmeterol Xinafoate/ Fluticasone (Advair 250/50 Diskus) 1 inh BID INH Last administered on 08/17/16 09:34; Admin Dose 1 INH; Start 08/08/16 at 11:00 Montelukast Sodium (Singulair) 10 mg HS PO Last administered on 08/16/16 21:12 ; Admin Dose 10 MG; Start 08/08/16 at 21:00 Tiotropium [place] 1 inh 1 inh DAILY INH Last administered on 08/17/16 09:34; Admin Dose 1 INH; Start 08/08/16 at 11:00 Piperacillin Sod/ Tazobactam Sod (Zosyn 2.25gm/ 50ml (Pmx)) 50 ml @ 100 mls/hr Q8 IVPB Last administered on 08/17/16 13:59; Admin Dose 100 MLS/HR; Start 08/10 at 14:00 Diltiazem HCl (Cardizem Cd) 180 mg DAILY PO Last administered on 08/17/16 09: 34; Admin Dose 180 MG; Start 08/11/16 at 09:00 Insulin Aspart (Novolog Insulin Pen) NOVOLOG *MILD* ALGORI... Q4 SC Last administered on 08/17/16 18:02; Admin Dose 2 UNIT; Start 08/13/16 at 21:00 Miscellaneous Information 1 ea NOTE XX ; Start 08/13/16 at 17:30 Glucose (Glutose) 15 gm Q15M PRN PO DECREASED GLUCOSE; Start 08/13/16 at 17:30 Glucose (Glutose) 22.5 gm Q15M PRN PO DECREASED GLUCOSE; Start 08/13/16 at 17:30 Dextrose (D50w Syringe) 25 ml Q15M PRN IV DECREASED GLUCOSE; Start 08/13/16 at 17:30 Dextrose (D50w Syringe) 50 ml Q15M PRN IV DECREASED GLUCOSE; Start 08/13/16 at 17:30 Glucagon (Glucagen) 1 mg Q15M PRN IM DECREASED GLUCOSE; Start 08/13/16 at 17:30 Glucose 15 gm 15 gm Q15M PRN BUCCAL DECREASED GLUCOSE; Start 08/13/16 at 17:30 Vancomycin HCl (Vancocin) 250 ml @ 125 mls/hr Q96H IVPB Last administered on 12:01; Admin Dose 125 MLS/HR; Start 08/16/16 at 10:00 Amiodarone HCl 400 mg 400 mg BID PO Last administered on 08/17/16 09:33; Admin Dose 400 MG; Start 08/16/16 at 13:00 Sodium Chloride (1/2 NS) 1,000 ml @ 50 mls/hr Q20H IV Last administered on 14:01; Admin Dose 50 MLS/HR; Start 08/17/16 at 14:00 Apixaban (Eliquis) 5 mg BID PO ; Start 08/17/16 at 21:00 Digoxin (Digoxin) 0.125 mg DAILY@13 PO ; Start 08/18/16 at 13:00 Metoprolol Tartrate 25 mg 25 mg BID NGT ; Start 08/17/16 at 21:00 Potassium Chloride (KCl 40 MEQ/250 ML NS) 250 ml @ 62.5 mls/hr ONCE ONCE IVPB Last administered on 08/17/16 18:54; Admin Dose 62.5 MLS/HR; Start 08/17/16 at 18:30; Stop 08/17/16 at 22:29 Procedures Procedures PROCEDURE: XR Chest. CLINICAL INDICATION: Shortness of breath. TECHNIQUE: Single frontal view. COMPARISON: 08/14/2016. FINDINGS: The nasogastric tube has been removed. There is a tunneled right internal jugular vein dialysis catheter with the tip in the upper right atrium. Bibasilar air space disease and moderate bilateral pleural effusions are slightly worse than seen previously. The heart is enlarged. There is calcification in the aorta consistent with atherosclerosis. There is no pneumothorax. IMPRESSION: 1. Nasogastric tube removed. 2. Worse appearance of the lung bases and slightly larger bilateral pleural effusions. 3. No other change from 08/14/2016. LALA ORO Aug 17, 2016 19:42
[2016-08-17] MEDS: ATORVASTATIN 40 MG TAB PO SCH (22:12)
[2016-08-17] MEDS: MONTELUKAST 10 MG TAB PO SCH (22:12)
[2016-08-17] MEDS: METOPROLOL 25 MG TAB NGT SCH (22:13)
[2016-08-18] VITALS (12 sets, daily range): BP systolic 102–148; BP diastolic 57–67; PULSE 91–117; RESP 17–20
[2016-08-18] MEDS: ALBUTEROL/IPRATROPIUM (NEB) 3 ML AMP HHN SCH ×4 (01:43→20:01)
[2016-08-18] MEDS: INSULIN ASPART [NOVOLOG] 3 ML PEN SC SCH ×6 (01:54→21:08)
[2016-08-18] MEDS: PIPER-TAZO 2.25 GM (PMX) 50 ML IVPB SCH ×2 (06:03→14:05)
[2016-08-18] MEDS: FUROSEMIDE 40 MG INJ IV SCH ×2 (06:04→18:34)
[2016-08-18 06:59] LABS: ADD SCAN DIFF NO
[2016-08-18 07:01] LABS: ABNORMAL IP MESSAGE 1; BASOPHILS % 0.1 % (0.0-2.0); EOSINOPHILS % 0.1 % (0.0-7.0); HEMATOCRIT 33.9 % (37.0-47.0); HEMOGLOBIN 10.2 g/dl (12.0-16.0); LYMPHOCYTES # 0.3 10^3/ul (0.8-2.9); LYMPHOCYTES % 1.7 % (15.0-51.0); MEAN CORPUSCULAR HEMOGLOBIN 28.7 pg (29.0-33.0); MEAN CORPUSCULAR HGB CONC 30.1 g/dl (32.0-37.0); MEAN CORPUSCULAR VOLUME 95.5 fl (82.0-101.0); MEAN PLATELET VOLUME 10.5 fl (7.4-10.4); MONOCYTE # 0.4 10^3/ul (0.3-0.9); MONOCYTES % 2.6 % (0.0-11.0); NEUTROPHIL # 15.3 10^3/ul (1.6-7.5); NEUTROPHILS % 94.3 % (39.0-77.0); NUCLEATED RED BLOOD CELLS% 0.1 /100WBC (0.0-0.0); PLATELET COUNT 166 10^3/UL (140-415); RED BLOOD COUNT 3.55 10^6/ul (4.20-5.40); RED CELL DISTRIBUTION WIDTH 15.6 % (11.5-14.5); WHITE BLOOD COUNT 16.2 10^3/ul (4.8-10.8)
[2016-08-18 07:26] LABS: CALCIUM 8.2 mg/dl (8.4-10.2); CREATININE 3.64 mg/dl (0.44-1.00); POTASSIUM 5.1 mmol/L (3.5-5.1)
[2016-08-18] MEDS: SALMETEROL/FLUTICASONE 250/50 INHA INH SCH ×2 (09:28→20:22)
[2016-08-18] MEDS: TIOTROPIUM 18 MCG CAPSULE INHA DEV INH SCH (09:29)
[2016-08-18] MEDS: METOPROLOL 25 MG TAB NGT SCH ×2 (09:29→20:23)
[2016-08-18] MEDS: LINAGLIPTIN 5 MG TABLET PO SCH (09:30)
[2016-08-18] MEDS: CALCIUM/VITAMIN D (500/200) TAB PO SCH ×2 (09:30→20:22)
[2016-08-18] MEDS: APIXABAN 5 MG TABLET PO SCH ×2 (09:30→20:22)
[2016-08-18] MEDS: CALCITRIOL 0.25 MCG CAP PO SCH (09:30)
[2016-08-18] MEDS: PAROXETINE 10 MG TAB PO SCH (09:30)
[2016-08-18] MEDS: AMIODARONE 200 MG TAB PO SCH ×2 (09:31→20:23)
[2016-08-18] MEDS: DILTIAZEM (CD) 180 MG CAP PO SCH (09:46)
[2016-08-18] MEDS: SOD CHLORIDE 0.45% 1,000 ML IV SCH ×2 (10:00→17:09)
[2016-08-18] MEDS: CALCIUM ACETATE 667 MG CAP PO SCH ×2 (12:09→18:33)
[2016-08-18] MEDS: DIGOXIN 0.125 MG TAB PO SCH (12:48)
--- NOTE | 2016-08-18 12:57 | CONS ---
Date/Time of Note Date/Time of Note DATE: 08/18/16 TIME: 12:55 Assessment/Plan Assessment/Plan Additional Assessment/Plan Chest x-ray was reviewed from yesterday afternoon which is now again showing bilateral pleural effusions which are small. Assessment recommendations; 1. Patient admitted with pneumonia and acute renal failure 2. Status post right thoracentesis 3. Acute renal failure now requiring hemodialysis. 4. History of cardiac arrhythmia, atrial fibrillation. With rate controlled. 5. Underlying COPD. 6. History of hypertension and diabetes. Continue current treatment. Patient responding well to the current treatment regimen. Consultation Date/Type/Reason Admit Date/Time Jul 31, 2016 at 19:59 Initial Consult Date 08/06/16 Type of Consultation: Pulmonary Referring Provider: LALA ORO 24 HR Interval Summary Free Text/Dictation Patient condition stable. Complains of very minimal shortness of breath. Denies any cough, sputum production or wheezing. Denies any chest pain. General exam; elderly lady awake alert currently in no distress. Exam/Review of Systems Vital Signs Vitals Vital Signs Date Time Temp Pulse Resp B/P Pulse Ox O2 Delivery O2 Flow Rate FiO2 08/18/16 12:22 99.2 84 20 102/59 99 08/18/16 10:43 Nasal Cannula 3.0 Intake and Output 08/17/16 08/17/16 08/18/16 15:00 23:00 07:00 Intake Total 200 ml 675 ml Balance 200 ml 675 ml Exam HEENT exam is; supple neck, no JVD. No lymphadenopathy. Midline trachea. No thyromegaly. Patient is edentulous and wears dentures. Pupils are small bilaterally. Chest examination; minimally decreased breath on lung bases bilaterally. Upper lobes are clear. S1-S2 audible, irregular rhythm. Abdomen examination; soft, no organomegaly, nontender. Bowel sounds audible. Extremity exam ; no peripheral edema. [employer] examination; no focal deficit. Results Result Diagram: 08/18/16 0650 08/18/16 0650 Results 24 hrs Laboratory Tests Test 08/17/16 17:58 08/17/16 22:17 08/18/16 01:46 08/18/16 06:01 Bedside Glucose 190 176 166 128 Test 08/18/16 06:50 08/18/16 07:46 08/18/16 09:18 08/18/16 12:43 White Blood Count 16.2 H Red Blood Count 3.55 L Hemoglobin 10.2 L Hematocrit 33.9 L Mean Corpuscular Volume 95.5 Mean Corpuscular Hemoglobin 28.7 L Mean Corpuscular Hemoglobin Concent 30.1 L Red Cell Distribution Width 15.6 H Platelet Count 166 Mean Platelet Volume 10.5 H Neutrophils % 94.3 H Lymphocytes % 1.7 L Monocytes % 2.6 Eosinophils % 0.1 Basophils % 0.1 Nucleated Red Blood Cells % 0.1 H Neutrophils # 15.3 H Lymphocytes # 0.3 L Monocytes # 0.4 Eosinophils # 0.0 Basophils # 0.0 Nucleated Red Blood Cells # 0.0 Sodium Level 141 Potassium Level 5.1 Chloride Level 109 Carbon Dioxide Level 24 Anion Gap 13 Blood Urea Nitrogen 36 H Creatinine 3.64 H Glucose Level 155 Calcium Level 8.2 L Bedside Glucose 160 136 Lab Scanned Report REFERENCE LAB Medications Medications Current Medications Atorvastatin Calcium (Lipitor) 40 mg HS PO Last administered on 08/17/16 22:12 ; Admin Dose 40 MG; Start 08/01/16 at 21:00 Calcitriol (Rocaltrol) 0.25 mcg DAILY PO Last administered on 08/18/16 09:30; Admin Dose 0.25 MCG; Start 08/01/16 at 09:00 Calcium/Vitamin D (Oyster Shell/ Vit-D (500/200)) 1 tab BID PO Last administered on 08/18/16 09:30; Admin Dose 1 TAB; Start 08/01/16 at 09:00 Hydralazine HCl (Apresoline) 50 mg Q8 PO Last administered on 08/18/16 06:09; Admin Dose 50 MG; Start 08/01/16 at 06:00 Paroxetine HCl (Paxil) 10 mg DAILY PO Last administered on 08/18/16 09:30; Admin Dose 10 MG; Start 08/01/16 at 09:00 Acetaminophen (Tylenol Tab) 650 mg Q4H PRN PO PAIN AND OR ELEVATED TEMP Last administered on 08/14/16 22:09; Admin Dose 650 MG; Start 08/01/16 at 00:30 Hydralazine HCl (Apresoline) 20 mg Q6H PRN IV ELEVATED BLOOD PRESSURE Last administered on 08/09/16 03:50; Admin Dose 20 MG; Start 08/01/16 at 00:30 Guaifenesin/ Dextromethorphan (Robitussin Dm Liquid Cup) 10 ml Q4H PRN PO COUGH Last administered on 08/10/16 09:37; Admin Dose 10 ML; Start 08/01/16 at 00:30 Epoetin Braden (Epogen (Esrd)) 6,000 units MoWeFr@17 SC Last administered on 08/16 17:25; Admin Dose 6,000 UNITS; Start 08/02/16 at 17:00 Linagliptin (Tradjenta) 5 mg DAILY PO Last administered on 08/18/16 09:30; Admin Dose 5 MG; Start 08/04/16 at 20:00 Salmeterol Xinafoate/ Fluticasone (Advair 250/50 Diskus) 1 inh BID INH Last administered on 08/18/16 09:28; Admin Dose 1 INH; Start 08/08/16 at 11:00 Montelukast Sodium (Singulair) 10 mg HS PO Last administered on 08/17/16 22:12 ; Admin Dose 10 MG; Start 08/08/16 at 21:00 Tiotropium [place] 1 inh 1 inh DAILY INH Last administered on 08/18/16 09:29; Admin Dose 1 INH; Start 08/08/16 at 11:00 Piperacillin Sod/ Tazobactam Sod (Zosyn 2.25gm/ 50ml (Pmx)) 50 ml @ 100 mls/hr Q8 IVPB Last administered on 08/18/16 06:03; Admin Dose 100 MLS/HR; Start 08/10 at 14:00 Diltiazem HCl (Cardizem Cd) 180 mg DAILY PO Last administered on 08/18/16 09: 46; Admin Dose 180 MG; Start 08/11/16 at 09:00 Insulin Aspart (Novolog Insulin Pen) NOVOLOG *MILD* ALGORI... Q4 SC Last administered on 08/18/16 09:54; Admin Dose 1 UNIT; Start 08/13/16 at 21:00 Miscellaneous Information 1 ea NOTE XX ; Start 08/13/16 at 17:30 Glucose (Glutose) 15 gm Q15M PRN PO DECREASED GLUCOSE; Start 08/13/16 at 17:30 Glucose (Glutose) 22.5 gm Q15M PRN PO DECREASED GLUCOSE; Start 08/13/16 at 17:30 Dextrose (D50w Syringe) 25 ml Q15M PRN IV DECREASED GLUCOSE; Start 08/13/16 at 17:30 Dextrose (D50w Syringe) 50 ml Q15M PRN IV DECREASED GLUCOSE; Start 08/13/16 at 17:30 Glucagon (Glucagen) 1 mg Q15M PRN IM DECREASED GLUCOSE; Start 08/13/16 at 17:30 Glucose 15 gm 15 gm Q15M PRN BUCCAL DECREASED GLUCOSE; Start 08/13/16 at 17:30 Vancomycin HCl (Vancocin) 250 ml @ 125 mls/hr Q96H IVPB Last administered on 12:01; Admin Dose 125 MLS/HR; Start 08/16/16 at 10:00 Amiodarone HCl 400 mg 400 mg BID PO Last administered on 08/18/16 09:31; Admin Dose 400 MG; Start 08/16/16 at 13:00 Sodium Chloride (1/2 NS) 1,000 ml @ 50 mls/hr Q20H IV Last administered on 14:01; Admin Dose 50 MLS/HR; Start 08/17/16 at 14:00 Apixaban (Eliquis) 5 mg BID PO Last administered on 08/18/16 09:30; Admin Dose 5 MG; Start 08/17/16 at 21:00 Digoxin (Digoxin) 0.125 mg DAILY@13 PO Last administered on 08/18/16 12:48; Admin Dose 0.125 MG; Start 08/18/16 at 13:00 Metoprolol Tartrate (Lopressor) 25 mg BID NGT Last administered on 08/18/16 09 :29; Admin Dose 25 MG; Start 08/17/16 at 21:00 KOFI HUERTA Aug 18, 2016 12:57
[2016-08-18] MEDS: CLOTRIMAZOLE 10 MG TROCHE MT SCH ×3 (14:55→21:09)
--- NOTE | 2016-08-18 15:55 | CONS ---
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 Cont. 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 not on chronic dialysis, with long-term current use of insulin Consultation Date/Type/Reason Admit Date/Time Jul 31, 2016 at 19:59 Initial Consult Date 08/06/16 Type of Consultation: Endocrinology Reason for Consultation T2DM management Referring Provider: LALA ORO 24 HR Interval Summary Constitutional: no complaints Detailed Summary ENT: dysphagia, pain, sore throat Respiratory: no complaints Cardiovascular: no complaints Gastrointestinal: no complaints Genitourinary: no complaints Musculoskeletal: no complaints Neurologic: no complaints Exam/Review of Systems Vital Signs Vitals VS - Last 72 Hours, by Label Date Time Temp Pulse Resp B/P Pulse Ox O2 Delivery O2 Flow Rate FiO2 08/18/16 13:34 3.0 08/18/16 13:34 110 20 93 3.0 08/18/16 12:22 99.2 84 20 102/59 99 08/18/16 12:08 117 08/18/16 10:43 Nasal Cannula 3.0 08/18/16 08:10 104 08/18/16 07:52 98.9 117 19 123/65 96 08/18/16 07:47 110 20 Nasal Cannula 3.0 08/18/16 04:37 108 08/18/16 04:25 98.8 66 18 143/67 97 08/18/16 02:54 3.0 08/18/16 01:45 109 18 91 Nasal Cannula 3.0 08/18/16 01:43 109 18 93 Nasal Cannula 3.0 08/18/16 00:28 98.6 82 17 110/57 94 08/18/16 00:00 91 08/17/16 23:44 Nasal Cannula 3.0 08/17/16 22:51 3.0 08/17/16 21:07 118 08/17/16 20:00 98.7 70 18 128/58 96 08/17/16 19:22 104 20 92 Nasal Cannula 3.0 08/17/16 18:34 3.0 08/17/16 16:20 136 08/17/16 16:09 99.5 100 16 114/55 93 08/17/16 13:43 97 3.0 08/17/16 13:43 94 22 97 Nasal Cannula 3.0 08/17/16 12:22 99.1 104 16 123/67 94 08/17/16 12:14 116 08/17/16 08:30 114 08/17/16 08:05 Nasal Cannula 3.0 08/17/16 07:58 98.5 85 16 108/61 95 08/17/16 07:30 102 17 08/17/16 07:24 93 3.0 08/17/16 07:24 93 20 93 Nasal Cannula 3.0 08/17/16 07:00 101 08/17/16 06:30 101 08/17/16 06:00 101 08/17/16 05:30 101 08/17/16 05:00 105 08/17/16 04:30 95 18 08/17/16 04:05 109 08/17/16 04:00 98.0 95 20 120/72 95 08/17/16 02:44 94 22 95 Nasal Cannula 3.0 08/17/16 02:43 3.0 08/17/16 01:03 Nasal Cannula 3.0 08/17/16 00:14 107 08/17/16 00:00 98.1 99 20 128/83 96 08/16/16 20:05 114 08/16/16 20:00 98.0 89 20 125/70 98 08/16/16 19:42 3.0 08/16/16 19:42 92 18 97 Nasal Cannula 3.0 08/16/16 16:38 97.4 93 24 122/57 96 08/16/16 16:00 112 08/16/16 14:30 3.0 08/16/16 14:26 80 20 98 Nasal Cannula 3.0 08/16/16 12:20 97.6 89 24 122/64 95 08/16/16 12:00 90 08/16/16 08:30 97 Nasal Cannula 2.0 08/16/16 08:13 98.2 96 22 120/56 90 08/16/16 08:00 90 08/16/16 07:57 84 18 97 Nasal Cannula 3.0 08/16/16 07:57 97 3.0 08/16/16 07:51 100 08/16/16 04:33 3 08/16/16 04:25 98 08/16/16 02:27 82 18 Nasal Cannula 3.0 08/16/16 02:26 3.0 08/16/16 01:30 Nasal Cannula 3.0 08/16/16 00:32 80 08/16/16 00:15 97.5 83 15 117/57 93 Nasal Cannula 2.0 08/16/16 00:11 3.0 08/15/16 23:45 91 25 141/61 94 08/15/16 23:30 81 19 125/60 97 08/15/16 23:15 83 20 141/63 94 08/15/16 23:00 91 19 128/60 96 08/15/16 22:45 93 11 124/61 96 08/15/16 22:30 88 18 128/52 96 08/15/16 22:15 95 16 141/54 96 08/15/16 22:00 95 20 127/72 96 08/15/16 21:45 102 20 118/60 96 08/15/16 21:30 107 23 129/55 95 08/15/16 21:15 91 23 139/60 96 08/15/16 21:00 96 16 130/65 95 08/15/16 20:47 3.0 08/15/16 20:37 98 4.0 08/15/16 20:35 94 19 98 Nasal Cannula 4.0 08/15/16 20:30 97 14 120/66 97 08/15/16 20:15 93 17 145/72 97 08/15/16 20:00 85 08/15/16 20:00 Nasal Cannula 3.0 08/15/16 20:00 92 19 130/61 96 Nasal Cannula 08/15/16 19:45 88 21 126/65 97 08/15/16 19:30 97 25 143/65 97 Nasal Cannula 08/15/16 19:15 94 20 129/65 96 08/15/16 19:00 98.0 86 22 119/63 97 Nasal Cannula 08/15/16 17:30 88 18 141/60 93 08/15/16 17:15 86 23 123/59 95 08/15/16 17:00 88 20 134/62 94 08/15/16 16:45 91 19 126/61 97 08/15/16 16:30 80 19 111/64 98 08/15/16 16:23 3 08/15/16 16:15 98.6 82 18 108/65 96 08/15/16 16:00 81 08/15/16 16:00 81 19 111/59 95 Vital Signs Date Time Temp Pulse Resp B/P Pulse Ox O2 Delivery O2 Flow Rate FiO2 08/18/16 13:34 3.0 08/18/16 13:34 110 20 93 08/18/16 12:22 99.2 102/59 08/18/16 10:43 Nasal Cannula Intake and Output 08/17/16 08/17/16 08/18/16 15:00 23:00 07:00 Intake Total 200 ml 675 ml Balance 200 ml 675 ml Exam Constitutional: alert, frail, obese, oriented Psych: nl mood/affect, no complaints ENMT: nl external ears & nose, nl lips & teeth, No mucosa pink and moist ((+) white plaques on buccal mucosa) Respiratory: clear to auscultation, normal air movement Cardiovascular: nl pulses, regular rate and rhythm, No edema, No murmurs/extra sounds, No rub Gastrointestinal: bowel sounds, nl liver, spleen, non-tender, soft, No mass, No rebound or guarding Musculoskeletal: nl extremities to inspection Extremities: normal pulses, No clubbing, No cyanosis, No edema 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: [employer] II-XII intact, nl mental status, nl speech, nl strength Additional Comments Bedside Glucose - 72 Hours Test 08/15/16 17:09 08/15/16 21:00 08/16/16 02:19 08/16/16 05:28 Bedside Glucose 176mg/dL (70-220) 164mg/dL (70-220) 143mg/dL (70-220) 168mg/dL (70-220) Test 08/16/16 08:08 08/16/16 12:14 08/16/16 17:15 08/16/16 21:09 Bedside Glucose 169mg/dL (70-220) 169mg/dL (70-220) 130mg/dL (70-220) 207mg/dL (70-220) Test 08/17/16 01:58 08/17/16 05:42 08/17/16 08:07 08/17/16 12:30 Bedside Glucose 175mg/dL (70-220) 160mg/dL (70-220) 178mg/dL (70-220) 194mg/dL (70-220) Test 08/17/16 17:58 08/17/16 22:17 08/18/16 01:46 08/18/16 06:01 Bedside Glucose 190mg/dL (70-220) 176mg/dL (70-220) 166mg/dL (70-220) 128mg/dL (70-220) Test 08/18/16 07:46 08/18/16 12:43 Bedside Glucose 160mg/dL (70-220) 136mg/dL (70-220) Results Result Diagram: 08/18/16 0650 08/18/16 0650 Results 24 hrs Laboratory Tests Test 08/17/16 17:58 08/17/16 22:17 08/18/16 01:46 08/18/16 06:01 Bedside Glucose 190 176 166 128 Test 08/18/16 06:50 08/18/16 07:46 08/18/16 09:18 08/18/16 12:43 White Blood Count 16.2 H Red Blood Count 3.55 L Hemoglobin 10.2 L Hematocrit 33.9 L Mean Corpuscular Volume 95.5 Mean Corpuscular Hemoglobin 28.7 L Mean Corpuscular Hemoglobin Concent 30.1 L Red Cell Distribution Width 15.6 H Platelet Count 166 Mean Platelet Volume 10.5 H Neutrophils % 94.3 H Lymphocytes % 1.7 L Monocytes % 2.6 Eosinophils % 0.1 Basophils % 0.1 Nucleated Red Blood Cells % 0.1 H Neutrophils # 15.3 H Lymphocytes # 0.3 L Monocytes # 0.4 Eosinophils # 0.0 Basophils # 0.0 Nucleated Red Blood Cells # 0.0 Sodium Level 141 Potassium Level 5.1 Chloride Level 109 Carbon Dioxide Level 24 Anion Gap 13 Blood Urea Nitrogen 36 H Creatinine 3.64 H Glucose Level 155 Calcium Level 8.2 L Bedside Glucose 160 136 Lab Scanned Report REFERENCE LAB Medications Medications Current Medications Atorvastatin Calcium (Lipitor) 40 mg HS PO Last administered on 08/17/16t 22:12 ; Admin Dose 40 MG; Start 08/01/16 at 21:00 Calcitriol (Rocaltrol) 0.25 mcg DAILY PO Last administered on 08/18/16 09:30; Admin Dose 0.25 MCG; Start 08/01/16 at 09:00 Calcium/Vitamin D (Oyster Shell/ Vit-D (500/200)) 1 tab BID PO Last administered on 08/18/16 09:30; Admin Dose 1 TAB; Start 08/01/16 at 09:00 Hydralazine HCl (Apresoline) 50 mg Q8 PO Last administered on 08/18/16 06:09; Admin Dose 50 MG; Start 08/01/16 at 06:00 Paroxetine HCl (Paxil) 10 mg DAILY PO Last administered on 08/18/16 09:30; Admin Dose 10 MG; Start 08/01/16 at 09:00 Acetaminophen (Tylenol Tab) 650 mg Q4H PRN PO PAIN AND OR ELEVATED TEMP Last administered on 08/14/16 22:09; Admin Dose 650 MG; Start 08/01/16 at 00:30 Hydralazine HCl (Apresoline) 20 mg Q6H PRN IV ELEVATED BLOOD PRESSURE Last administered on 08/09/16 03:50; Admin Dose 20 MG; Start 08/01/16 at 00:30 Guaifenesin/ Dextromethorphan (Robitussin Dm Liquid Cup) 10 ml Q4H PRN PO COUGH Last administered on 08/10/16 09:37; Admin Dose 10 ML; Start 08/01/16 at 00:30 Epoetin Braden (Epogen (Esrd)) 6,000 units MoWeFr@17 SC Last administered on 08/16 17:25; Admin Dose 6,000 UNITS; Start 08/02/16 at 17:00 Linagliptin (Tradjenta) 5 mg DAILY PO Last administered on 08/18/16 09:30; Admin Dose 5 MG; Start 08/04/16 at 20:00 Salmeterol Xinafoate/ Fluticasone (Advair 250/50 Diskus) 1 inh BID INH Last administered on 08/18/16 09:28; Admin Dose 1 INH; Start 08/08/16 at 11:00 Montelukast Sodium (Singulair) 10 mg HS PO Last administered on 08/17/16 22:12 ; Admin Dose 10 MG; Start 08/08/16 at 21:00 Tiotropium [place] 1 inh 1 inh DAILY INH Last administered on 08/18/16 09:29; Admin Dose 1 INH; Start 08/08/16 at 11:00 Piperacillin Sod/ Tazobactam Sod (Zosyn 2.25gm/ 50ml (Pmx)) 50 ml @ 100 mls/hr Q8 IVPB Last administered on 08/18/16 14:05; Admin Dose 100 MLS/HR; Start 08/10 at 14:00 Diltiazem HCl (Cardizem Cd) 180 mg DAILY PO Last administered on 08/18/16 09: 46; Admin Dose 180 MG; Start 08/11/16 at 09:00 Insulin Aspart (Novolog Insulin Pen) NOVOLOG *MILD* ALGORI... Q4 SC Last administered on 08/18/16 09:54; Admin Dose 1 UNIT; Start 08/13/16 at 21:00 Miscellaneous Information 1 ea NOTE XX ; Start 08/13/16 at 17:30 Glucose (Glutose) 15 gm Q15M PRN PO DECREASED GLUCOSE; Start 08/13/16 at 17:30 Glucose (Glutose) 22.5 gm Q15M PRN PO DECREASED GLUCOSE; Start 08/13/16 at 17:30 Dextrose (D50w Syringe) 25 ml Q15M PRN IV DECREASED GLUCOSE; Start 08/13/16 at 17:30 Dextrose (D50w Syringe) 50 ml Q15M PRN IV DECREASED GLUCOSE; Start 08/13/16 at 17:30 Glucagon (Glucagen) 1 mg Q15M PRN IM DECREASED GLUCOSE; Start 08/13/16 at 17:30 Glucose 15 gm 15 gm Q15M PRN BUCCAL DECREASED GLUCOSE; Start 08/13/16 at 17:30 Vancomycin HCl (Vancocin) 250 ml @ 125 mls/hr Q96H IVPB Last administered on 12:01; Admin Dose 125 MLS/HR; Start 08/16/16 at 10:00 Amiodarone HCl 400 mg 400 mg BID PO Last administered on 08/18/16 09:31; Admin Dose 400 MG; Start 08/16/16 at 13:00 Sodium Chloride (1/2 NS) 1,000 ml @ 50 mls/hr Q20H IV Last administered on 14:01; Admin Dose 50 MLS/HR; Start 08/17/16 at 14:00 Apixaban (Eliquis) 5 mg BID PO Last administered on 08/18/16 09:30; Admin Dose 5 MG; Start 08/17/16 at 21:00 Digoxin (Digoxin) 0.125 mg DAILY@13 PO Last administered on 08/18/16 12:48; Admin Dose 0.125 MG; Start 08/18/16 at 13:00 Metoprolol Tartrate (Lopressor) 25 mg BID NGT Last administered on 08/18/16 09 :29; Admin Dose 25 MG; Start 08/17/16 at 21:00 JUDAH NOE MD Aug 18, 2016 15:55
--- NOTE | 2016-08-18 16:22 | CONS ---
Date/Time of Note Date/Time of Note DATE: 08/18/16 TIME: 16:21 Assessment/Plan Assessment/Plan Chief Complaint/Hosp Course SUBJECTIVE: No acute changes. The patient is comfortable on nasal cannula. No fevers. INDWELLINGS: She has right chest PermCath, peripheral IV. ANTIMICROBIALS: 1. Vancomycin. 2. Zosyn. PHYSICAL EXAMINATION: GENERAL: Fragile, elderly woman in no distress. HEENT: Head atraumatic, normocephalic. Sclerae anicteric. Buccal mucosa dry. NECK: Supple. Trachea midline. CHEST: Rise symmetrical. Breath sounds diminished to bases. HEART: S1, S2. ABDOMEN: Soft. Bowel tones present. EXTREMITIES: Without cyanosis. ASSESSMENT: 1. Sepsis with bacteremia on admission, repeat blood cultures negative. 2. Pneumonia. 3. Pleural effusions, status post thoracentesis with pleural fluid culture results pending. Gram stain shows gram-negative rods===> cx negative. 4. End-stage renal disease, hemodialysis dependent. 5. Diabetes. 6. History of pancreatic stent. PLAN: The patient remains stable. Will change Zosyn to Amikacin, continue Vanco. Follow cardiology, nephrology and pulmonary recommendations. DW staff DW Dr Natarajan Problems: Consultation Date/Type/Reason Admit Date/Time Jul 31, 2016 at 19:59 Initial Consult Date 08/06/16 Type of Consultation: id Referring Provider: LALA ORO Exam/Review of Systems Vital Signs Vitals Vital Signs Date Time Temp Pulse Resp B/P Pulse Ox O2 Delivery O2 Flow Rate FiO2 08/18/16 13:34 3.0 08/18/16 13:34 110 20 93 08/18/16 12:22 99.2 102/59 08/18/16 10:43 Nasal Cannula Intake and Output 08/17/16 08/17/16 08/18/16 15:00 23:00 07:00 Intake Total 200 ml 675 ml Balance 200 ml 675 ml Results Result Diagram: 08/18/16 0650 08/18/16 0650 Results 24 hrs Laboratory Tests Test 08/17/16 17:58 08/17/16 22:17 08/18/16 01:46 08/18/16 06:01 Bedside Glucose 190 176 166 128 Test 08/18/16 06:50 08/18/16 07:46 08/18/16 09:18 08/18/16 12:43 White Blood Count 16.2 H Red Blood Count 3.55 L Hemoglobin 10.2 L Hematocrit 33.9 L Mean Corpuscular Volume 95.5 Mean Corpuscular Hemoglobin 28.7 L Mean Corpuscular Hemoglobin Concent 30.1 L Red Cell Distribution Width 15.6 H Platelet Count 166 Mean Platelet Volume 10.5 H Neutrophils % 94.3 H Lymphocytes % 1.7 L Monocytes % 2.6 Eosinophils % 0.1 Basophils % 0.1 Nucleated Red Blood Cells % 0.1 H Neutrophils # 15.3 H Lymphocytes # 0.3 L Monocytes # 0.4 Eosinophils # 0.0 Basophils # 0.0 Nucleated Red Blood Cells # 0.0 Sodium Level 141 Potassium Level 5.1 Chloride Level 109 Carbon Dioxide Level 24 Anion Gap 13 Blood Urea Nitrogen 36 H Creatinine 3.64 H Glucose Level 155 Calcium Level 8.2 L Bedside Glucose 160 136 Lab Scanned Report REFERENCE LAB Medications Medications Current Medications Atorvastatin Calcium (Lipitor) 40 mg HS PO Last administered on 08/17/16 22:12 ; Admin Dose 40 MG; Start 08/01/16 at 21:00 Calcitriol (Rocaltrol) 0.25 mcg DAILY PO Last administered on 08/18/16 09:30; Admin Dose 0.25 MCG; Start 08/01/16 at 09:00 Calcium/Vitamin D (Oyster Shell/ Vit-D (500/200)) 1 tab BID PO Last administered on 08/18/16 09:30; Admin Dose 1 TAB; Start 08/01/16 at 09:00 Hydralazine HCl (Apresoline) 50 mg Q8 PO Last administered on 08/18/16 06:09; Admin Dose 50 MG; Start 08/01/16 at 06:00 Paroxetine HCl (Paxil) 10 mg DAILY PO Last administered on 08/18/16 09:30; Admin Dose 10 MG; Start 08/01/16 at 09:00 Acetaminophen (Tylenol Tab) 650 mg Q4H PRN PO PAIN AND OR ELEVATED TEMP Last administered on 08/14/16 22:09; Admin Dose 650 MG; Start 08/01/16 at 00:30 Hydralazine HCl (Apresoline) 20 mg Q6H PRN IV ELEVATED BLOOD PRESSURE Last administered on 08/09/16 03:50; Admin Dose 20 MG; Start 08/01/16 at 00:30 Guaifenesin/ Dextromethorphan (Robitussin Dm Liquid Cup) 10 ml Q4H PRN PO COUGH Last administered on 08/10/16 09:37; Admin Dose 10 ML; Start 08/01/16 at 00:30 Epoetin Braden (Epogen (Esrd)) 6,000 units MoWeFr@17 SC Last administered on 08/16 17:25; Admin Dose 6,000 UNITS; Start 08/02/16 at 17:00 Linagliptin (Tradjenta) 5 mg DAILY PO Last administered on 08/18/16 09:30; Admin Dose 5 MG; Start 08/04/16 at 20:00 Salmeterol Xinafoate/ Fluticasone (Advair 250/50 Diskus) 1 inh BID INH Last administered on 08/18/16 09:28; Admin Dose 1 INH; Start 08/08/16 at 11:00 Montelukast Sodium (Singulair) 10 mg HS PO Last administered on 08/17/16 22:12 ; Admin Dose 10 MG; Start 08/08/16 at 21:00 Tiotropium [place] 1 inh 1 inh DAILY INH Last administered on 08/18/16 09:29; Admin Dose 1 INH; Start 08/08/16 at 11:00 Piperacillin Sod/ Tazobactam Sod (Zosyn 2.25gm/ 50ml (Pmx)) 50 ml @ 100 mls/hr Q8 IVPB Last administered on 08/18/16 14:05; Admin Dose 100 MLS/HR; Start 08/10 at 14:00 Diltiazem HCl (Cardizem Cd) 180 mg DAILY PO Last administered on 08/18/16 09: 46; Admin Dose 180 MG; Start 08/11/16 at 09:00 Insulin Aspart (Novolog Insulin Pen) NOVOLOG *MILD* ALGORI... Q4 SC Last administered on 08/18/16 09:54; Admin Dose 1 UNIT; Start 08/13/16 at 21:00 Miscellaneous Information 1 ea NOTE XX ; Start 08/13/16 at 17:30 Glucose (Glutose) 15 gm Q15M PRN PO DECREASED GLUCOSE; Start 08/13/16 at 17:30 Glucose (Glutose) 22.5 gm Q15M PRN PO DECREASED GLUCOSE; Start 08/13/16 at 17:30 Dextrose (D50w Syringe) 25 ml Q15M PRN IV DECREASED GLUCOSE; Start 08/13/16 at 17:30 Dextrose (D50w Syringe) 50 ml Q15M PRN IV DECREASED GLUCOSE; Start 08/13/16 at 17:30 Glucagon (Glucagen) 1 mg Q15M PRN IM DECREASED GLUCOSE; Start 08/13/16 at 17:30 Glucose 15 gm 15 gm Q15M PRN BUCCAL DECREASED GLUCOSE; Start 08/13/16 at 17:30 Vancomycin HCl (Vancocin) 250 ml @ 125 mls/hr Q96H IVPB Last administered on 12:01; Admin Dose 125 MLS/HR; Start 08/16/16 at 10:00 Amiodarone HCl 400 mg 400 mg BID PO Last administered on 08/18/16 09:31; Admin Dose 400 MG; Start 08/16/16 at 13:00 Sodium Chloride (1/2 NS) 1,000 ml @ 50 mls/hr Q20H IV Last administered on 14:01; Admin Dose 50 MLS/HR; Start 08/17/16 at 14:00 Apixaban (Eliquis) 5 mg BID PO Last administered on 08/18/16 09:30; Admin Dose 5 MG; Start 08/17/16 at 21:00 Digoxin (Digoxin) 0.125 mg DAILY@13 PO Last administered on 08/18/16 12:48; Admin Dose 0.125 MG; Start 08/18/16 at 13:00 Metoprolol Tartrate (Lopressor) 25 mg BID NGT Last administered on 08/18/16 09 :29; Admin Dose 25 MG; Start 08/17/16 at 21:00 NAHUN DOWNEY NP Aug 18, 2016 16:22
[2016-08-18] MEDS ORDERED: AMIKACIN IV PER PHARMACY XX SCH (16:30)
--- NOTE | 2016-08-18 16:49 | PN ---
Date/Time of Note Date/Time of Note DATE: 08/18/16 TIME: 16:48 Assessment/Plan Lines/Catheters IV Catheter Type (from [place]): Peripheral IV Urinary Cath still in place: No Assessment/Plan Assessment/Plan -Acute respiratory insufficiency secondary to pneumonia and COPD exacerbation. - Right-sided pneumonia per CT scan, continue cefepime. - A-fib with RVR, continue Cardizem, patient is followed by Dr. Stuart in cardiology. - COPD exacerbation, continue breathing treatment. Dr. Natarajan is following in pulmonology consultation - End-stage renal disease stage V. Dr. Leon is following in nephrology consultation. Continue to hemodialysis via right femoral hemodialysis catheter. - Pulmonary edema. Continue diuresis. - per pulmonary -per CXR- Worse appearance of the lung bases and slightly larger bilateral pleural effusions.No other change from 08/14/2016. - Anemia of chronic kidney disease. Continue Epogen. - Diabetes mellitus type [address] Garcia is following an endocrinology consultation. Continue NPH. - Hypertension, continue Norvasc. -Left upper extremity AV fistula, non-matured -Status post right hemodialysis non-tunneled catheter placement by Dr. Manning on 08/03. S/p R IJ tunneled hemodialysis catheter placement. - Hypokalemia- resolved, AM LABS Further treatment depends upon patient's clnical course. Plan of care dw Dr Flores/staff Subjective 24 Hr Interval Summary Constitutional: requiring IVF Eyes: no complaints ENT: no complaints Respiratory: no complaints Cardiovascular: no complaints Gastrointestinal: no complaints Exam/Review of Systems Vital Signs Vitals Vital Signs Date Time Temp Pulse Resp B/P Pulse Ox O2 Delivery O2 Flow Rate FiO2 08/18/16 16:40 98.5 76 18 121/59 98 08/18/16 13:34 3.0 08/18/16 10:43 Nasal Cannula Intake and Output 08/17/16 08/17/16 08/18/16 15:00 23:00 07:00 Intake Total 200 ml 675 ml Balance 200 ml 675 ml Exam Constitutional: alert, oriented, well developed Psych: nl mood/affect Eyes: EOMI, PERRL, nl sclera ENMT: nl external ears & nose Neck: non-tender Respiratory: diminished breath sounds Cardiovascular: nl pulses Gastrointestinal: non-tender, soft Musculoskeletal: nl extremities to inspection Extremities: normal pulses 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: nl speech Skin: nl turgor Lymph: nontender Results Result Diagram: 08/18/16 0650 08/18/16 0650 Results 24 hrs Laboratory Tests Test 08/17/16 17:58 08/17/16 22:17 08/18/16 01:46 08/18/16 06:01 Bedside Glucose 190 176 166 128 Test 08/18/16 06:50 08/18/16 07:46 08/18/16 09:18 08/18/16 12:43 White Blood Count 16.2 H Red Blood Count 3.55 L Hemoglobin 10.2 L Hematocrit 33.9 L Mean Corpuscular Volume 95.5 Mean Corpuscular Hemoglobin 28.7 L Mean Corpuscular Hemoglobin Concent 30.1 L Red Cell Distribution Width 15.6 H Platelet Count 166 Mean Platelet Volume 10.5 H Neutrophils % 94.3 H Lymphocytes % 1.7 L Monocytes % 2.6 Eosinophils % 0.1 Basophils % 0.1 Nucleated Red Blood Cells % 0.1 H Neutrophils # 15.3 H Lymphocytes # 0.3 L Monocytes # 0.4 Eosinophils # 0.0 Basophils # 0.0 Nucleated Red Blood Cells # 0.0 Sodium Level 141 Potassium Level 5.1 Chloride Level 109 Carbon Dioxide Level 24 Anion Gap 13 Blood Urea Nitrogen 36 H Creatinine 3.64 H Glucose Level 155 Calcium Level 8.2 L Bedside Glucose 160 136 Lab Scanned Report REFERENCE LAB Medications Medications Current Medications Atorvastatin Calcium (Lipitor) 40 mg HS PO Last administered on 08/17/16 22:12 ; Admin Dose 40 MG; Start 08/01/16 at 21:00 Calcitriol (Rocaltrol) 0.25 mcg DAILY PO Last administered on 08/18/16 09:30; Admin Dose 0.25 MCG; Start 08/01/16 at 09:00 Calcium/Vitamin D (Oyster Shell/ Vit-D (500/200)) 1 tab BID PO Last administered on 08/18/16 09:30; Admin Dose 1 TAB; Start 08/01/16 at 09:00 Hydralazine HCl (Apresoline) 50 mg Q8 PO Last administered on 08/18/16 06:09; Admin Dose 50 MG; Start 08/01/16 at 06:00 Paroxetine HCl (Paxil) 10 mg DAILY PO Last administered on 08/18/16 09:30; Admin Dose 10 MG; Start 08/01/16 at 09:00 Acetaminophen (Tylenol Tab) 650 mg Q4H PRN PO PAIN AND OR ELEVATED TEMP Last administered on 08/14/16 22:09; Admin Dose 650 MG; Start 08/01/16 at 00:30 Hydralazine HCl (Apresoline) 20 mg Q6H PRN IV ELEVATED BLOOD PRESSURE Last administered on 08/09/16 03:50; Admin Dose 20 MG; Start 08/01/16 at 00:30 Guaifenesin/ Dextromethorphan (Robitussin Dm Liquid Cup) 10 ml Q4H PRN PO COUGH Last administered on 08/10/16 09:37; Admin Dose 10 ML; Start 08/01/16 at 00:30 Epoetin Braden (Epogen (Esrd)) 6,000 units MoWeFr@17 SC Last administered on 08/16 17:25; Admin Dose 6,000 UNITS; Start 08/02/16 at 17:00 Linagliptin (Tradjenta) 5 mg DAILY PO Last administered on 08/18/16 09:30; Admin Dose 5 MG; Start 08/04/16 at 20:00 Salmeterol Xinafoate/ Fluticasone (Advair 250/50 Diskus) 1 inh BID INH Last administered on 08/18/16 09:28; Admin Dose 1 INH; Start 08/08/16 at 11:00 Montelukast Sodium (Singulair) 10 mg HS PO Last administered on 08/17/16 22:12 ; Admin Dose 10 MG; Start 08/08/16 at 21:00 Tiotropium [place] (Spiriva) 1 inh DAILY INH Last administered on 08/18/16 09: 29; Admin Dose 1 INH; Start 08/08/16 at 11:00 Diltiazem HCl (Cardizem Cd) 180 mg DAILY PO Last administered on 08/18/16 09: 46; Admin Dose 180 MG; Start 08/11/16 at 09:00 Insulin Aspart (Novolog Insulin Pen) NOVOLOG *MILD* ALGORI... Q4 SC Last administered on 08/18/16 09:54; Admin Dose 1 UNIT; Start 08/13/16 at 21:00 Miscellaneous Information 1 ea NOTE XX ; Start 08/13/16 at 17:30 Glucose (Glutose) 15 gm Q15M PRN PO DECREASED GLUCOSE; Start 08/13/16 at 17:30 Glucose (Glutose) 22.5 gm Q15M PRN PO DECREASED GLUCOSE; Start 08/13/16 at 17:30 Dextrose (D50w Syringe) 25 ml Q15M PRN IV DECREASED GLUCOSE; Start 08/13/16 at 17:30 Dextrose (D50w Syringe) 50 ml Q15M PRN IV DECREASED GLUCOSE; Start 08/13/16 at 17:30 Glucagon (Glucagen) 1 mg Q15M PRN IM DECREASED GLUCOSE; Start 08/13/16 at 17:30 Glucose 15 gm 15 gm Q15M PRN BUCCAL DECREASED GLUCOSE; Start 08/13/16 at 17:30 Vancomycin HCl (Vancocin) 250 ml @ 125 mls/hr Q96H IVPB Last administered on 12:01; Admin Dose 125 MLS/HR; Start 08/16/16 at 10:00 Amiodarone HCl 400 mg 400 mg BID PO Last administered on 08/18/16 09:31; Admin Dose 400 MG; Start 08/16/16 at 13:00 Sodium Chloride (1/2 NS) 1,000 ml @ 50 mls/hr Q20H IV Last administered on 14:01; Admin Dose 50 MLS/HR; Start 08/17/16 at 14:00 Apixaban (Eliquis) 5 mg BID PO Last administered on 08/18/16 09:30; Admin Dose 5 MG; Start 08/17/16 at 21:00 Digoxin (Digoxin) 0.125 mg DAILY@13 PO Last administered on 08/18/16 12:48; Admin Dose 0.125 MG; Start 08/18/16 at 13:00 Metoprolol Tartrate (Lopressor) 25 mg BID NGT Last administered on 08/18/16 09 :29; Admin Dose 25 MG; Start 08/17/16 at 21:00 Amikacin Sulfate AMIKACIN PER PHARMACY NOTE XX ; Start 08/18/16 at 16:30 Amikacin Sulfate/ Sodium Chloride (Amikacin/NS) 101.8 ml @ 102 mls/hr ONCE IVPB ; Start 08/18/16 at 20:00; Stop 08/19/16 at 05:00 LALA ORO Aug 18, 2016 16:49
[2016-08-18] MEDS: EPOETIN 3000 UNITS/1 ML INJ (ESRD) SC SCH (17:09)
--- NOTE | 2016-08-18 19:01 | CONS ---
Date/Time of Note Date/Time of Note DATE: 08/18/16 TIME: 19:00 Consult Date/Type/Reason Admit Date/Time Jul 31, 2016 at 19:59 Initial Consult Date 08/06/16 Type of Consultation: Cardiac and Vascular Int Ordering Provider: LALA ORO Objective Vital Signs Date Time Temp Pulse Resp B/P Pulse Ox O2 Delivery O2 Flow Rate FiO2 08/18/16 16:40 98.5 76 18 121/59 98 08/18/16 13:34 3.0 08/18/16 10:43 Nasal Cannula Intake and Output 08/17/16 08/17/16 08/18/16 15:00 23:00 07:00 Intake Total 200 ml 675 ml Balance 200 ml 675 ml Results/Medications Result Diagram: 08/18/1650 08/18/16 0650 Results 24 hrs Laboratory Tests Test 08/17/16 22:17 08/18/16 01:46 08/18/16 06:01 08/18/16 06:50 Bedside Glucose 176 166 128 White Blood Count 16.2 H Red Blood Count 3.55 L Hemoglobin 10.2 L Hematocrit 33.9 L Mean Corpuscular Volume 95.5 Mean Corpuscular Hemoglobin 28.7 L Mean Corpuscular Hemoglobin Concent 30.1 L Red Cell Distribution Width 15.6 H Platelet Count 166 Mean Platelet Volume 10.5 H Neutrophils % 94.3 H Lymphocytes % 1.7 L Monocytes % 2.6 Eosinophils % 0.1 Basophils % 0.1 Nucleated Red Blood Cells % 0.1 H Neutrophils # 15.3 H Lymphocytes # 0.3 L Monocytes # 0.4 Eosinophils # 0.0 Basophils # 0.0 Nucleated Red Blood Cells # 0.0 Sodium Level 141 Potassium Level 5.1 Chloride Level 109 Carbon Dioxide Level 24 Anion Gap 13 Blood Urea Nitrogen 36 H Creatinine 3.64 H Glucose Level 155 Calcium Level 8.2 L Test 08/18/16 07:46 08/18/16 09:18 08/18/16 12:43 08/18/16 17:11 Bedside Glucose 160 136 134 Lab Scanned Report REFERENCE LAB Medications Current Medications Atorvastatin Calcium (Lipitor) 40 mg HS PO Last administered on 08/17/16t 22:12 ; Admin Dose 40 MG; Start 08/01/16 at 21:00 Calcitriol (Rocaltrol) 0.25 mcg DAILY PO Last administered on 08/18/16 09:30; Admin Dose 0.25 MCG; Start 08/01/16 at 09:00 Calcium/Vitamin D (Oyster Shell/ Vit-D (500/200)) 1 tab BID PO Last administered on 08/18/16 09:30; Admin Dose 1 TAB; Start 08/01/16 at 09:00 Hydralazine HCl (Apresoline) 50 mg Q8 PO Last administered on 08/18/16 06:09; Admin Dose 50 MG; Start 08/01/16 at 06:00 Paroxetine HCl (Paxil) 10 mg DAILY PO Last administered on 08/18/16 09:30; Admin Dose 10 MG; Start 08/01/16 at 09:00 Acetaminophen (Tylenol Tab) 650 mg Q4H PRN PO PAIN AND OR ELEVATED TEMP Last administered on 08/14/16 22:09; Admin Dose 650 MG; Start 08/01/16 at 00:30 Hydralazine HCl (Apresoline) 20 mg Q6H PRN IV ELEVATED BLOOD PRESSURE Last administered on 08/09/16 03:50; Admin Dose 20 MG; Start 08/01/16 at 00:30 Guaifenesin/ Dextromethorphan (Robitussin Dm Liquid Cup) 10 ml Q4H PRN PO COUGH Last administered on 08/10/16 09:37; Admin Dose 10 ML; Start 08/01/16 at 00:30 Epoetin Braden (Epogen (Esrd)) 6,000 units MoWeFr@17 SC Last administered on 08/18 17:09; Admin Dose 6,000 UNITS; Start 08/02/16 at 17:00 Linagliptin (Tradjenta) 5 mg DAILY PO Last administered on 08/18/16 09:30; Admin Dose 5 MG; Start 08/04/16 at 20:00 Salmeterol Xinafoate/ Fluticasone (Advair 250/50 Diskus) 1 inh BID INH Last administered on 08/18/16 09:28; Admin Dose 1 INH; Start 08/08/16 at 11:00 Montelukast Sodium (Singulair) 10 mg HS PO Last administered on 08/17/16 22:12 ; Admin Dose 10 MG; Start 08/08/16 at 21:00 Tiotropium [place] (Spiriva) 1 inh DAILY INH Last administered on 08/18/16 09: 29; Admin Dose 1 INH; Start 08/08/16 at 11:00 Diltiazem HCl (Cardizem Cd) 180 mg DAILY PO Last administered on 08/18/16 09: 46; Admin Dose 180 MG; Start 08/11/16 at 09:00 Insulin Aspart (Novolog Insulin Pen) NOVOLOG *MILD* ALGORI... Q4 SC Last administered on 08/18/16 09:54; Admin Dose 1 UNIT; Start 08/13/16 at 21:00 Miscellaneous Information 1 ea NOTE XX ; Start 08/13/16 at 17:30 Glucose (Glutose) 15 gm Q15M PRN PO DECREASED GLUCOSE; Start 08/13/16 at 17:30 Glucose (Glutose) 22.5 gm Q15M PRN PO DECREASED GLUCOSE; Start 08/13/16 at 17:30 Dextrose (D50w Syringe) 25 ml Q15M PRN IV DECREASED GLUCOSE; Start 08/13/16 at 17:30 Dextrose (D50w Syringe) 50 ml Q15M PRN IV DECREASED GLUCOSE; Start 08/13/16 at 17:30 Glucagon (Glucagen) 1 mg Q15M PRN IM DECREASED GLUCOSE; Start 08/13/16 at 17:30 Glucose 15 gm 15 gm Q15M PRN BUCCAL DECREASED GLUCOSE; Start 08/13/16 at 17:30 Vancomycin HCl (Vancocin) 250 ml @ 125 mls/hr Q96H IVPB Last administered on 12:01; Admin Dose 125 MLS/HR; Start 08/16/16 at 10:00 Amiodarone HCl 400 mg 400 mg BID PO Last administered on 08/18/16 09:31; Admin Dose 400 MG; Start 08/16/16 at 13:00 Sodium Chloride (1/2 NS) 1,000 ml @ 50 mls/hr Q20H IV Last administered on 17:09; Admin Dose 50 MLS/HR; Start 08/17/16 at 14:00 Apixaban (Eliquis) 5 mg BID PO Last administered on 08/18/16 09:30; Admin Dose 5 MG; Start 08/17/16 at 21:00 Digoxin (Digoxin) 0.125 mg DAILY@13 PO Last administered on 08/18/16 12:48; Admin Dose 0.125 MG; Start 08/18/16 at 13:00 Metoprolol Tartrate (Lopressor) 25 mg BID NGT Last administered on 08/18/16 09 :29; Admin Dose 25 MG; Start 08/17/16 at 21:00 Amikacin Sulfate AMIKACIN PER PHARMACY NOTE XX ; Start 08/18/16 at 16:30 Amikacin Sulfate/ Sodium Chloride (Amikacin/NS) 101.8 ml @ 102 mls/hr ONCE IVPB ; Start 08/18/16 at 20:00; Stop 08/19/16 at 05:00 Assessment/Plan Chief Complaint/Hosp Course Patient is 85 year old F with PMH of HTN, HLD, CKD now presentezd with SOB and ESRD was started on HD. She already has been planning for Stage IV CKD and had fistula done already. Pt does have some SOB. significant Leg edema. Likely realted to CKD and Diastolic HF. LVEF is nl. Problems: Additional Assessment/Plan Patient is cardiac carlson stable Afib with RVR rate controlled <110 Eliques Continue therapy with Abx pulm on case out pt SIERRA Cazares MD Aug 18, 2016 19:01
--- NOTE | 2016-08-18 19:59 | CONS ---
Date/Time of Note Date/Time of Note DATE: 08/18/16 TIME: 19:57 Assessment/Plan Assessment/Plan Chief Complaint/Hosp Course IMPRESSION: 1. End-stage renal disease stage V. 2. Fluid overload.better 3. Pulmonary edema./pleural effusion/lung infilterate 4. Anemia of chronic kidney disease. 5. History of diabetes mellitus. 6. 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 7. AV fistula on the left upper extremity. 8 pneumonia/bronchites 9 thoracentesis s/p plan continue hd am fluis res antibiotic Problems: Consultation Date/Type/Reason Admit Date/Time Jul 31, 2016 at 19:59 Initial Consult Date 08/01/16 Type of Consultation: renal Referring Provider: LAAL ORO Exam/Review of Systems Vital Signs Vitals Vital Signs Date Time Temp Pulse Resp B/P Pulse Ox O2 Delivery O2 Flow Rate FiO2 08/18/16 16:40 98.5 76 18 121/59 98 08/18/16 13:34 3.0 08/18/16 10:43 Nasal Cannula Intake and Output 08/17/16 08/17/16 08/18/16 15:00 23:00 07:00 Intake Total 200 ml 675 ml Balance 200 ml 675 ml Exam Constitutional: other (sob better) Neck: supple Respiratory: congested cough (+), crackles/rales (+), diminished breath sounds Cardiovascular: regular rate and rhythm Gastrointestinal: bowel sounds (+), non-tender, soft Extremities: edema (+) Results Result Diagram: 08/18/16 0650 08/18/16 0650 Results 24 hrs Laboratory Tests Test 08/17/16 22:17 08/18/16 01:46 08/18/16 06:01 08/18/16 06:50 Bedside Glucose 176 166 128 White Blood Count 16.2 H Red Blood Count 3.55 L Hemoglobin 10.2 L Hematocrit 33.9 L Mean Corpuscular Volume 95.5 Mean Corpuscular Hemoglobin 28.7 L Mean Corpuscular Hemoglobin Concent 30.1 L Red Cell Distribution Width 15.6 H Platelet Count 166 Mean Platelet Volume 10.5 H Neutrophils % 94.3 H Lymphocytes % 1.7 L Monocytes % 2.6 Eosinophils % 0.1 Basophils % 0.1 Nucleated Red Blood Cells % 0.1 H Neutrophils # 15.3 H Lymphocytes # 0.3 L Monocytes # 0.4 Eosinophils # 0.0 Basophils # 0.0 Nucleated Red Blood Cells # 0.0 Sodium Level 141 Potassium Level 5.1 Chloride Level 109 Carbon Dioxide Level 24 Anion Gap 13 Blood Urea Nitrogen 36 H Creatinine 3.64 H Glucose Level 155 Calcium Level 8.2 L Test 08/18/16 07:46 08/18/16 09:18 08/18/16 12:43 08/18/16 17:11 Bedside Glucose 160 136 134 Lab Scanned Report REFERENCE LAB Medications Medications Current Medications Atorvastatin Calcium (Lipitor) 40 mg HS PO Last administered on 08/17/16 22:12 ; Admin Dose 40 MG; Start 08/01/16 at 21:00 Calcitriol (Rocaltrol) 0.25 mcg DAILY PO Last administered on 08/18/16 09:30; Admin Dose 0.25 MCG; Start 08/01/16 at 09:00 Calcium/Vitamin D (Oyster Shell/ Vit-D (500/200)) 1 tab BID PO Last administered on 08/18/16 09:30; Admin Dose 1 TAB; Start 08/01/16 at 09:00 Hydralazine HCl (Apresoline) 50 mg Q8 PO Last administered on 08/18/16 06:09; Admin Dose 50 MG; Start 08/01/16 at 06:00 Paroxetine HCl (Paxil) 10 mg DAILY PO Last administered on 08/18/16 09:30; Admin Dose 10 MG; Start 08/01/16 at 09:00 Acetaminophen (Tylenol Tab) 650 mg Q4H PRN PO PAIN AND OR ELEVATED TEMP Last administered on 08/14/16 22:09; Admin Dose 650 MG; Start 08/01/16 at 00:30 Hydralazine HCl (Apresoline) 20 mg Q6H PRN IV ELEVATED BLOOD PRESSURE Last administered on 08/09/16 03:50; Admin Dose 20 MG; Start 08/01/16 at 00:30 Guaifenesin/ Dextromethorphan (Robitussin Dm Liquid Cup) 10 ml Q4H PRN PO COUGH Last administered on 08/10/16 09:37; Admin Dose 10 ML; Start 08/01/16 at 00:30 Epoetin Braden (Epogen (Esrd)) 6,000 units MoWeFr@17 SC Last administered on 08/18 17:09; Admin Dose 6,000 UNITS; Start 08/02/16 at 17:00 Linagliptin (Tradjenta) 5 mg DAILY PO Last administered on 08/18/16 09:30; Admin Dose 5 MG; Start 08/04/16 at 20:00 Salmeterol Xinafoate/ Fluticasone (Advair 250/50 Diskus) 1 inh BID INH Last administered on 08/18/16 09:28; Admin Dose 1 INH; Start 08/08/16 at 11:00 Montelukast Sodium (Singulair) 10 mg HS PO Last administered on 08/17/16 22:12 ; Admin Dose 10 MG; Start 08/08/16 at 21:00 Tiotropium [place] (Spiriva) 1 inh DAILY INH Last administered on 08/18/16 09: 29; Admin Dose 1 INH; Start 08/08/16 at 11:00 Diltiazem HCl (Cardizem Cd) 180 mg DAILY PO Last administered on 08/18/16 09: 46; Admin Dose 180 MG; Start 08/11/16 at 09:00 Insulin Aspart (Novolog Insulin Pen) NOVOLOG *MILD* ALGORI... Q4 SC Last administered on 08/18/16 09:54; Admin Dose 1 UNIT; Start 08/13/16 at 21:00 Miscellaneous Information 1 ea NOTE XX ; Start 08/13/16 at 17:30 Glucose (Glutose) 15 gm Q15M PRN PO DECREASED GLUCOSE; Start 08/13/16 at 17:30 Glucose (Glutose) 22.5 gm Q15M PRN PO DECREASED GLUCOSE; Start 08/13/16 at 17:30 Dextrose (D50w Syringe) 25 ml Q15M PRN IV DECREASED GLUCOSE; Start 08/13/16 at 17:30 Dextrose (D50w Syringe) 50 ml Q15M PRN IV DECREASED GLUCOSE; Start 08/13/16 at 17:30 Glucagon (Glucagen) 1 mg Q15M PRN IM DECREASED GLUCOSE; Start 08/13/16 at 17:30 Glucose 15 gm 15 gm Q15M PRN BUCCAL DECREASED GLUCOSE; Start 08/13/16 at 17:30 Vancomycin HCl (Vancocin) 250 ml @ 125 mls/hr Q96H IVPB Last administered on 12:01; Admin Dose 125 MLS/HR; Start 08/16/16 at 10:00 Amiodarone HCl 400 mg 400 mg BID PO Last administered on 08/18/16 09:31; Admin Dose 400 MG; Start 08/16/16 at 13:00 Sodium Chloride (1/2 NS) 1,000 ml @ 50 mls/hr Q20H IV Last administered on 17:09; Admin Dose 50 MLS/HR; Start 08/17/16 at 14:00 Apixaban (Eliquis) 5 mg BID PO Last administered on 08/18/16 09:30; Admin Dose 5 MG; Start 08/17/16 at 21:00 Digoxin (Digoxin) 0.125 mg DAILY@13 PO Last administered on 08/18/16 12:48; Admin Dose 0.125 MG; Start 08/18/16 at 13:00 Metoprolol Tartrate (Lopressor) 25 mg BID NGT Last administered on 08/18/16 09 :29; Admin Dose 25 MG; Start 08/17/16 at 21:00 Amikacin Sulfate AMIKACIN PER PHARMACY NOTE XX ; Start 08/18/16 at 16:30 Amikacin Sulfate/ Sodium Chloride (Amikacin/NS) 101.8 ml @ 102 mls/hr ONCE IVPB ; Start 08/18/16 at 20:00; Stop 08/19/16 at 05:00 DAT OLSON MD Aug 18, 2016 19:59
[2016-08-18] MEDS ORDERED: AMIKACIN 450 MG in SOD CHLORIDE 0.9% 100 ML IVPB SCH (20:00)
[2016-08-18] MEDS: MONTELUKAST 10 MG TAB PO SCH (20:22)
[2016-08-18] MEDS: ATORVASTATIN 40 MG TAB PO SCH (20:22)
[2016-08-19] VITALS (20 sets, daily range): BP systolic 82–143; BP diastolic 35–77; PULSE 73–140; RESP 18–20
[2016-08-19] MEDS: INSULIN ASPART [NOVOLOG] 3 ML PEN SC SCH ×5 (02:06→17:36)
[2016-08-19] MEDS: ALBUTEROL/IPRATROPIUM (NEB) 3 ML AMP HHN SCH ×4 (02:31→20:04)
[2016-08-19] MEDS: SOD CHLORIDE 0.45% 1,000 ML IV SCH (05:20)
[2016-08-19] MEDS: FUROSEMIDE 40 MG INJ IV SCH ×2 (05:51→17:30)
[2016-08-19] MEDS ORDERED: METOPROLOL 5 MG INJ IV ONE (06:30)
[2016-08-19 07:23] LABS: ADD SCAN DIFF NO
[2016-08-19 07:26] LABS: ABNORMAL IP MESSAGE 1; BASOPHILS % 0.1 % (0.0-2.0); EOSINOPHILS % 0.1 % (0.0-7.0); HEMATOCRIT 31.8 % (37.0-47.0); HEMOGLOBIN 9.5 g/dl (12.0-16.0); LYMPHOCYTES # 0.3 10^3/ul (0.8-2.9); LYMPHOCYTES % 1.4 % (15.0-51.0); MEAN CORPUSCULAR HEMOGLOBIN 28.5 pg (29.0-33.0); MEAN CORPUSCULAR HGB CONC 29.9 g/dl (32.0-37.0); MEAN CORPUSCULAR VOLUME 95.5 fl (82.0-101.0); MEAN PLATELET VOLUME 10.7 fl (7.4-10.4); MONOCYTE # 0.5 10^3/ul (0.3-0.9); MONOCYTES % 2.5 % (0.0-11.0); NEUTROPHIL # 17.2 10^3/ul (1.6-7.5); NEUTROPHILS % 94.8 % (39.0-77.0); PLATELET COUNT 168 10^3/UL (140-415); RED BLOOD COUNT 3.33 10^6/ul (4.20-5.40); RED CELL DISTRIBUTION WIDTH 15.5 % (11.5-14.5); WHITE BLOOD COUNT 18.1 10^3/ul (4.8-10.8)
[2016-08-19 07:40] LABS: POTASSIUM 5.1 mmol/L (3.5-5.1)
[2016-08-19 07:43] LABS: CREATININE 4.75 mg/dl (0.44-1.00)
[2016-08-19 07:44] LABS: CALCIUM 8.3 mg/dl (8.4-10.2)
[2016-08-19] MEDS: CALCIUM ACETATE 667 MG CAP PO SCH ×3 (08:55→17:30)
[2016-08-19] MEDS: ACETAMINOPHEN 325 MG TAB PO PRN (08:55)
[2016-08-19] MEDS: PAROXETINE 10 MG TAB PO SCH (08:55)
[2016-08-19] MEDS: CALCITRIOL 0.25 MCG CAP PO SCH (08:55)
[2016-08-19] MEDS: LINAGLIPTIN 5 MG TABLET PO SCH (08:56)
[2016-08-19] MEDS: CLOTRIMAZOLE 10 MG TROCHE MT SCH ×5 (08:56→21:17)
[2016-08-19] MEDS: DILTIAZEM (CD) 240 MG CAP PO SCH (08:56)
[2016-08-19] MEDS: APIXABAN 5 MG TABLET PO SCH ×2 (08:56→21:17)
[2016-08-19] MEDS: METOPROLOL 25 MG TAB PO SCH ×2 (08:57→21:17)
[2016-08-19] MEDS: CALCIUM/VITAMIN D (500/200) TAB PO SCH ×2 (08:57→21:17)
[2016-08-19] MEDS: AMIODARONE 200 MG TAB PO SCH ×2 (08:57→21:16)
[2016-08-19] MEDS: SALMETEROL/FLUTICASONE 250/50 INHA INH SCH ×2 (08:58→21:10)
[2016-08-19] MEDS: TIOTROPIUM 18 MCG CAPSULE INHA DEV INH SCH (08:58)
--- NOTE | 2016-08-19 10:19 | CONS ---
Date/Time of Note Date/Time of Note DATE: 08/19/16 TIME: 10:17 Assessment/Plan Assessment/Plan Additional Assessment/Plan Assessment recommendations; next 1. Patient admitted for right lower lobe pneumonia status post thoracentesis. 2. Acute renal failure not requiring hemodialysis. 3. COPD. 4. Atrial fibrillation. 5. Hypertension, diabetes. 6. Increasing leukocytosis. Continue current treatment. Will obtain follow-up chest x-ray. Consultation Date/Type/Reason Admit Date/Time Jul 31, 2016 at 19:59 Initial Consult Date 08/06/16 Type of Consultation: Pulmonary Referring Provider: LALA ORO 24 HR Interval Summary Free Text/Dictation Patient condition is stable. Currently getting hemodialysis at bedside. Complains of very minimal shortness of breath. Denies any cough chest pain sputum production. Any fever chills. General exam; elderly lady, awake alert currently in no distress. Exam/Review of Systems Vital Signs Vitals Vital Signs Date Time Temp Pulse Resp B/P Pulse Ox O2 Delivery O2 Flow Rate FiO2 08/19/16 08:06 140 08/19/16 08:01 18 97 Venti Mask 35 08/19/16 07:57 98.6 137/70 08/19/16 04:10 9.0 Intake and Output 08/18/16 08/18/16 08/19/16 15:00 23:00 07:00 Intake Total 594.8 ml 400 ml Balance 594.8 ml 400 ml Exam HEENT exam is; supple neck, no JVD. No lymphadenopathy. Midline trachea. No thyromegaly. Pharynx is clear. Patient has multiple carious teeth. Chest examined; diminished breath on lung bases bilaterally. Upper lobes are clear. S1-S2 audible, irregular rhythm. No murmurs. Abdomen exam; soft, nondistended. No organomegaly. Bowel sounds audible. Extremity exam; no peripheral edema. Patient has a multiple ecchymosis involving all 4 extremities. [employer] exam is; no focal deficit. Results Result Diagram: 08/19/16 0637 08/19/16 0637 Results 24 hrs Laboratory Tests Test 08/18/16 12:43 08/18/16 17:11 08/18/16 20:25 08/19/16 01:27 Bedside Glucose 136 134 197 161 Test 08/19/16 02:02 08/19/16 04:36 08/19/16 06:37 08/19/16 08:45 Bedside Glucose 196 134 148 White Blood Count 18.1 H Red Blood Count 3.33 L Hemoglobin 9.5 L Hematocrit 31.8 L Mean Corpuscular Volume 95.5 Mean Corpuscular Hemoglobin 28.5 L Mean Corpuscular Hemoglobin Concent 29.9 L Red Cell Distribution Width 15.5 H Platelet Count 168 Mean Platelet Volume 10.7 H Neutrophils % 94.8 H Lymphocytes % 1.4 L Monocytes % 2.5 Eosinophils % 0.1 Basophils % 0.1 Nucleated Red Blood Cells % 0.0 Neutrophils # 17.2 H Lymphocytes # 0.3 L Monocytes # 0.5 Eosinophils # 0.0 Basophils # 0.0 Nucleated Red Blood Cells # 0.0 Sodium Level 141 Potassium Level 5.1 Chloride Level 107 Carbon Dioxide Level 22 Anion Gap 17 H Blood Urea Nitrogen 50 H Creatinine 4.75 #H Glucose Level 134 Calcium Level 8.3 L Medications Medications Current Medications Atorvastatin Calcium (Lipitor) 40 mg HS PO Last administered on 08/18/16 20:22 ; Admin Dose 40 MG; Start 08/01/16 at 21:00 Calcitriol (Rocaltrol) 0.25 mcg DAILY PO Last administered on 08/19/16 08:55; Admin Dose 0.25 MCG; Start 08/01/16 at 09:00 Calcium/Vitamin D (Oyster Shell/ Vit-D (500/200)) 1 tab BID PO Last administered on 08/19/16 08:57; Admin Dose 1 TAB; Start 08/01/16 at 09:00 Hydralazine HCl (Apresoline) 50 mg Q8 PO Last administered on 08/18/16 06:09; Admin Dose 50 MG; Start 08/01/16 at 06:00 Paroxetine HCl (Paxil) 10 mg DAILY PO Last administered on 08/19/16 08:55; Admin Dose 10 MG; Start 08/01/16 at 09:00 Acetaminophen (Tylenol Tab) 650 mg Q4H PRN PO PAIN AND OR ELEVATED TEMP Last administered on 08/19/16 08:55; Admin Dose 650 MG; Start 08/01/16 at 00:30 Hydralazine HCl (Apresoline) 20 mg Q6H PRN IV ELEVATED BLOOD PRESSURE Last administered on 08/09/16 03:50; Admin Dose 20 MG; Start 08/01/16 at 00:30 Guaifenesin/ Dextromethorphan (Robitussin Dm Liquid Cup) 10 ml Q4H PRN PO COUGH Last administered on 08/10/16 09:37; Admin Dose 10 ML; Start 08/01/16 at 00:30 Epoetin Braden (Epogen (Esrd)) 6,000 units MoWeFr@17 SC Last administered on 08/18 17:09; Admin Dose 6,000 UNITS; Start 08/02/16 at 17:00 Linagliptin (Tradjenta) 5 mg DAILY PO Last administered on 08/19/16 08:56; Admin Dose 5 MG; Start 08/04/16 at 20:00 Salmeterol Xinafoate/ Fluticasone (Advair 250/50 Diskus) 1 inh BID INH Last administered on 08/19/16 08:58; Admin Dose 1 INH; Start 08/08/16 at 11:00 Montelukast Sodium (Singulair) 10 mg HS PO Last administered on 08/18/16 20:22 ; Admin Dose 10 MG; Start 08/08/16 at 21:00 Tiotropium [place] (Spiriva) 1 inh DAILY INH Last administered on 08/19/16 08: 58; Admin Dose 1 INH; Start 08/08/16 at 11:00 Insulin Aspart (Novolog Insulin Pen) NOVOLOG *MILD* ALGORI... Q4 SC Last administered on 08/19/16 09:10; Admin Dose 1 UNIT; Start 08/13/16 at 21:00 Miscellaneous Information 1 ea NOTE XX ; Start 08/13/16 at 17:30 Glucose (Glutose) 15 gm Q15M PRN PO DECREASED GLUCOSE; Start 08/13/16 at 17:30 Glucose (Glutose) 22.5 gm Q15M PRN PO DECREASED GLUCOSE; Start 08/13/16 at 17:30 Dextrose (D50w Syringe) 25 ml Q15M PRN IV DECREASED GLUCOSE; Start 08/13/16 at 17:30 Dextrose (D50w Syringe) 50 ml Q15M PRN IV DECREASED GLUCOSE; Start 08/13/16 at 17:30 Glucagon (Glucagen) 1 mg Q15M PRN IM DECREASED GLUCOSE; Start 08/13/16 at 17:30 Glucose 15 gm 15 gm Q15M PRN BUCCAL DECREASED GLUCOSE; Start 08/13/16 at 17:30 Vancomycin HCl (Vancocin) 250 ml @ 125 mls/hr Q96H IVPB Last administered on 12:01; Admin Dose 125 MLS/HR; Start 08/16/16 at 10:00 Amiodarone HCl 400 mg 400 mg BID PO Last administered on 08/19/16 08:57; Admin Dose 400 MG; Start 08/16/16 at 13:00 Sodium Chloride (1/2 NS) 1,000 ml @ 50 mls/hr Q20H IV Last administered on 17:09; Admin Dose 50 MLS/HR; Start 08/17/16 at 14:00 Apixaban (Eliquis) 5 mg BID PO Last administered on 08/19/16 08:56; Admin Dose 5 MG; Start 08/17/16 at 21:00 Digoxin (Digoxin) 0.125 mg DAILY@13 PO Last administered on 08/18/16 12:48; Admin Dose 0.125 MG; Start 08/18/16 at 13:00 Amikacin Sulfate (Amikacin Iv Per Pharmacy) AMIKACIN PER PHARMACY NOTE XX ; Start 08/18/16 at 16:30 Diltiazem HCl (Cardizem Cd) 240 mg DAILY PO Last administered on 08/19/16 08: 56; Admin Dose 240 MG; Start 08/19/16 at 09:00 Metoprolol Tartrate (Lopressor) 50 mg BID PO Last administered on 08/19/16 08: 57; Admin Dose 50 MG; Start 08/19/16 at 09:00 KOFI HUERTA Aug 19, 2016 10:19
--- NOTE | 2016-08-19 12:41 | PN ---
Date/Time of Note Date/Time of Note DATE: 08/19/16 TIME: 12:34 Assessment/Plan Lines/Catheters IV Catheter Type (from [facility]): PERMACATH Urinary Cath still in place: No Assessment/Plan Assessment/Plan -Acute respiratory insufficiency secondary to pneumonia and COPD exacerbation. - Right-sided pneumonia per CT scan, continue cefepime. - A-fib with RVR, continue Cardizem, patient is followed by Dr. Stuart in cardiology. - COPD exacerbation, continue breathing treatment. Dr. Natarajan is following in pulmonology consultation - End-stage renal disease stage V. Dr. Leon is following in nephrology consultation. Continue to hemodialysis via right femoral hemodialysis catheter. - Pulmonary edema. Continue diuresis. - per pulmonary -per CXR- Worse appearance of the lung bases and slightly larger bilateral pleural effusions.No other change from 08/14/2016. - Anemia of chronic kidney disease. Continue Epogen. - Diabetes mellitus type [address] Garcia is following an endocrinology consultation. Continue NPH. - Hypertension, continue Norvasc. -Left upper extremity AV fistula, non-matured -Status post right hemodialysis non-tunneled catheter placement by Dr. Manning on 08/03. S/p R IJ tunneled hemodialysis catheter placement. - Hypokalemia- resolved, AM LABS Further treatment depends upon patient's clnical course. Plan of care dw Dr Flores/staff Subjective 24 Hr Interval Summary Subjective hx not possible: other Constitutional: requiring O2 Eyes: no complaints ENT: no complaints Respiratory: shortness of breath Cardiovascular: no complaints Gastrointestinal: no complaints Musculoskeletal: no complaints Skin: no complaints Neurologic: no complaints Endocrine: no complaints Lymphatic: no complaints Exam/Review of Systems Vital Signs Vitals Vital Signs Date Time Temp Pulse Resp B/P Pulse Ox O2 Delivery O2 Flow Rate FiO2 08/19/16 12:05 97.6 102 18 107/61 95 08/19/16 08:01 Venti Mask 35 08/19/16 04:10 9.0 Intake and Output 08/18/16 08/18/16 08/19/16 15:00 23:00 07:00 Intake Total 594.8 ml 400 ml Balance 594.8 ml 400 ml Exam Constitutional: alert, oriented, well developed Psych: nl mood/affect Eyes: EOMI ENMT: nl external ears & nose Neck: non-tender Respiratory: diminished breath sounds Cardiovascular: nl pulses Gastrointestinal: non-tender, soft Musculoskeletal: nl extremities to inspection 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: nl mental status, nl speech Lymph: nontender Results Result Diagram: 08/19/1637 08/19/1637 Results 24 hrs Laboratory Tests Test 08/18/16 12:43 08/18/16 17:11 08/18/16 20:25 08/19/16 01:27 Bedside Glucose 136 134 197 161 Test 08/19/16 02:02 08/19/16 04:36 08/19/16 06:37 08/19/16 08:45 Bedside Glucose 196 134 148 White Blood Count 18.1 H Red Blood Count 3.33 L Hemoglobin 9.5 L Hematocrit 31.8 L Mean Corpuscular Volume 95.5 Mean Corpuscular Hemoglobin 28.5 L Mean Corpuscular Hemoglobin Concent 29.9 L Red Cell Distribution Width 15.5 H Platelet Count 168 Mean Platelet Volume 10.7 H Neutrophils % 94.8 H Lymphocytes % 1.4 L Monocytes % 2.5 Eosinophils % 0.1 Basophils % 0.1 Nucleated Red Blood Cells % 0.0 Neutrophils # 17.2 H Lymphocytes # 0.3 L Monocytes # 0.5 Eosinophils # 0.0 Basophils # 0.0 Nucleated Red Blood Cells # 0.0 Sodium Level 141 Potassium Level 5.1 Chloride Level 107 Carbon Dioxide Level 22 Anion Gap 17 H Blood Urea Nitrogen 50 H Creatinine 4.75 #H Glucose Level 134 Calcium Level 8.3 L Test 08/19/16 11:59 Bedside Glucose 140 Medications Medications Current Medications Atorvastatin Calcium (Lipitor) 40 mg HS PO Last administered on 08/18/16 20:22 ; Admin Dose 40 MG; Start 08/01/16 at 21:00 Calcitriol (Rocaltrol) 0.25 mcg DAILY PO Last administered on 08/19/16 08:55; Admin Dose 0.25 MCG; Start 08/01/16 at 09:00 Calcium/Vitamin D (Oyster Shell/ Vit-D (500/200)) 1 tab BID PO Last administered on 08/19/16 08:57; Admin Dose 1 TAB; Start 08/01/16 at 09:00 Hydralazine HCl (Apresoline) 50 mg Q8 PO Last administered on 08/18/16 06:09; Admin Dose 50 MG; Start 08/01/16 at 06:00 Paroxetine HCl (Paxil) 10 mg DAILY PO Last administered on 08/19/16 08:55; Admin Dose 10 MG; Start 08/01/16 at 09:00 Acetaminophen (Tylenol Tab) 650 mg Q4H PRN PO PAIN AND OR ELEVATED TEMP Last administered on 08/19/16 08:55; Admin Dose 650 MG; Start 08/01/16 at 00:30 Hydralazine HCl (Apresoline) 20 mg Q6H PRN IV ELEVATED BLOOD PRESSURE Last administered on 08/09/16 03:50; Admin Dose 20 MG; Start 08/01/16 at 00:30 Guaifenesin/ Dextromethorphan (Robitussin Dm Liquid Cup) 10 ml Q4H PRN PO COUGH Last administered on 08/10/16 09:37; Admin Dose 10 ML; Start 08/01/16 at 00:30 Epoetin Braden (Epogen (Esrd)) 6,000 units MoWeFr@17 SC Last administered on 08/18 17:09; Admin Dose 6,000 UNITS; Start 08/02/16 at 17:00 Linagliptin (Tradjenta) 5 mg DAILY PO Last administered on 08/19/16 08:56; Admin Dose 5 MG; Start 08/04/16 at 20:00 Salmeterol Xinafoate/ Fluticasone (Advair 250/50 Diskus) 1 inh BID INH Last administered on 08/19/16 08:58; Admin Dose 1 INH; Start 08/08/16 at 11:00 Montelukast Sodium (Singulair) 10 mg HS PO Last administered on 08/18/16 20:22 ; Admin Dose 10 MG; Start 08/08/16 at 21:00 Tiotropium [place] (Spiriva) 1 inh DAILY INH Last administered on 08/19/16 08: 58; Admin Dose 1 INH; Start 08/08/16 at 11:00 Insulin Aspart (Novolog Insulin Pen) NOVOLOG *MILD* ALGORI... Q4 SC Last administered on 08/19/16 09:10; Admin Dose 1 UNIT; Start 08/13/16 at 21:00 Miscellaneous Information 1 ea NOTE XX ; Start 08/13/16 at 17:30 Glucose (Glutose) 15 gm Q15M PRN PO DECREASED GLUCOSE; Start 08/13/16 at 17:30 Glucose (Glutose) 22.5 gm Q15M PRN PO DECREASED GLUCOSE; Start 08/13/16 at 17:30 Dextrose (D50w Syringe) 25 ml Q15M PRN IV DECREASED GLUCOSE; Start 08/13/16 at 17:30 Dextrose (D50w Syringe) 50 ml Q15M PRN IV DECREASED GLUCOSE; Start 08/13/16 at 17:30 Glucagon (Glucagen) 1 mg Q15M PRN IM DECREASED GLUCOSE; Start 08/13/16 at 17:30 Glucose 15 gm 15 gm Q15M PRN BUCCAL DECREASED GLUCOSE; Start 08/13/16 at 17:30 Vancomycin HCl (Vancocin) 250 ml @ 125 mls/hr Q96H IVPB Last administered on 12:01; Admin Dose 125 MLS/HR; Start 08/16/16 at 10:00 Amiodarone HCl 400 mg 400 mg BID PO Last administered on 08/19/16 08:57; Admin Dose 400 MG; Start 08/16/16 at 13:00 Sodium Chloride (1/2 NS) 1,000 ml @ 50 mls/hr Q20H IV Last administered on 17:09; Admin Dose 50 MLS/HR; Start 08/17/16 at 14:00 Apixaban (Eliquis) 5 mg BID PO Last administered on 08/19/16 08:56; Admin Dose 5 MG; Start 08/17/16 at 21:00 Digoxin (Digoxin) 0.125 mg DAILY@13 PO Last administered on 08/18/16 12:48; Admin Dose 0.125 MG; Start 08/18/16 at 13:00 Amikacin Sulfate (Amikacin Iv Per Pharmacy) AMIKACIN PER PHARMACY NOTE XX ; Start 08/18/16 at 16:30 Diltiazem HCl (Cardizem Cd) 240 mg DAILY PO Last administered on 08/19/16 08: 56; Admin Dose 240 MG; Start 08/19/16 at 09:00 Metoprolol Tartrate (Lopressor) 50 mg BID PO Last administered on 08/19/16 08: 57; Admin Dose 50 MG; Start 08/19/16 at 09:00 LALA ORO Aug 19, 2016 12:41
[2016-08-19] MEDS: AMIKACIN 275 MG in SOD CHLORIDE 0.9% 100 ML IVPB SCH (14:23)
[2016-08-19] MEDS: DIGOXIN 0.125 MG TAB PO SCH (14:23)
--- NOTE | 2016-08-19 15:14 | PN ---
DATE: 08/19/2016 INFECTIOUS DISEASE PROGRESS NOTE SUBJECTIVE: Patient is awake, status post hemodialysis, complaining of feeling tired and weak. No fevers. WBC today 18.1, H and H 9.5 and 31.8, platelets 168, neutrophils 94.8. ANTIMICROBIALS: 1. Amikacin. 2. Vancomycin. INDWELLINGS: Right chest Perm-A-Cath, placed on 08/05/2016. PHYSICAL EXAMINATION: GENERAL: This is a well-developed, elderly woman, who is awake, in no distress. HEENT: Head atraumatic, normocephalic. Sclerae anicteric. Buccal mucosa dry. NECK: Supple, trachea midline. CHEST: Chest rise is symmetrical. Breath sounds diminished to the bases. HEART: S1, S2. ABDOMEN: Soft. Bowel tones present. EXTREMITIES: Without cyanosis. SKIN: No jaundice, no cyanosis. ASSESSMENT: 1. Acute hypoxemic respiratory failure. 2. Healthcare-associated pneumonia. 3. Bilateral pleural effusions, status post thoracentesis, with cultures being negative. 4. Status post achromobacter species bacteremia, with repeat blood cultures being negative. 5. End-stage renal disease, on hemodialysis. 6. Diabetes. 7. History of pancreatic stent placement. PLAN: The patient remains clinically unchanged. Patient with persistent leukocytosis; however, no fevers. We are going to repeat cultures and chest x-ray. Continue management as per primary team a nd consultants. Dictated By: NAHUN DOWNEY SENIOR BUSINESS ARCHITECT for [employer] Conf#: [id number] DID#: [id number]
[2016-08-19 15:39] LABS: ADD SCAN DIFF NO
[2016-08-19 15:41] LABS: ABNORMAL IP MESSAGE 1; HEMATOCRIT 30.4 % (37.0-47.0); HEMOGLOBIN 9.2 g/dl (12.0-16.0); MEAN CORPUSCULAR HEMOGLOBIN 28.8 pg (29.0-33.0); MEAN CORPUSCULAR HGB CONC 30.3 g/dl (32.0-37.0); MEAN PLATELET VOLUME 10.7 fl (7.4-10.4); PLATELET COUNT 151 10^3/UL (140-415); RED CELL DISTRIBUTION WIDTH 15.2 % (11.5-14.5); WHITE BLOOD COUNT 16.7 10^3/ul (4.8-10.8)
[2016-08-19 16:29] LABS: LYMPHOCYTES # 0.3 10^3/ul (0.8-2.9); MONOCYTE # 0.2 10^3/ul (0.3-0.9); NEUTROPHIL # 15.9 10^3/ul (1.6-7.5)
[2016-08-19 16:30] LABS: PLATELET ESTIMATE PLT APPEAR ADEQUATE
[2016-08-19] MEDS ORDERED: CEPASTAT LOZENGE MT PRN (16:30)
--- NOTE | 2016-08-19 16:45 | RADRPT ---
PROCEDURE: XR Chest. CLINICAL INDICATION: Shortness of breath. TECHNIQUE: Single frontal view. COMPARISON: 08/17/2016. FINDINGS: There is a tunneled right internal jugular vein dialysis catheter with the tip in the right atrium i n satisfactory position. The right pleural effusion is now much larger than seen previously and the re is worse appearance of the right mid and lower lung zones consistent with atelectasis. Moderate left pleural effusion and left basilar atelectasis are unchanged. The heart is enlarged. There is calcification in the aorta consistent with atherosclerosis. There is no pneumothorax. IMPRESSION: 1. Larger right pleural effusion and worse right mid and lower lung zone atelectasis. 2. No other change from 08/17/2016. RPTAT: QQ .Salazar Cruz MD, MD Date Time Electronically viewed and signed by .Salazar Cruz MD, MD on 08/19/2016 16:44 .R/
--- NOTE | 2016-08-19 16:46 | CONS ---
Date/Time of Note Date/Time of Note DATE: 08/19/16 TIME: 16:45 Assessment/Plan Assessment/Plan Chief Complaint/Hosp Course IMPRESSION: 1. End-stage renal disease stage V. 2. Fluid overload.better 3. Pulmonary edema./pleural effusion/lung infilterate 4. Anemia of chronic kidney disease. 5. History of diabetes mellitus. 6. 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 7. AV fistula on the left upper extremity. 8 pneumonia/bronchites 9 thoracentesis s/p plan continue hd am fluis res antibiotic per pulmonary Problems: Consultation Date/Type/Reason Admit Date/Time Jul 31, 2016 at 19:59 Initial Consult Date 08/01/16 Type of Consultation: renal Referring Provider: LALA ORO 24 HR Interval Summary Constitutional: no complaints Exam/Review of Systems Vital Signs Vitals Vital Signs Date Time Temp Pulse Resp B/P Pulse Ox O2 Delivery O2 Flow Rate FiO2 08/19/16 16:37 97 08/19/16 15:57 98.3 18 107/53 98 08/19/16 15:11 Nasal Cannula 3.0 32 Intake and Output 08/18/16 08/18/16 08/19/16 14:59 22:59 06:59 Intake Total 544.8 ml 450 ml Balance 544.8 ml 450 ml Exam Neck: supple Respiratory: diminished breath sounds Cardiovascular: regular rate and rhythm Gastrointestinal: soft Musculoskeletal: nl extremities to inspection Results Result Diagram: 08/19/16 1455 08/19/16 0637 Results 24 hrs Laboratory Tests Test 08/18/16 17:11 08/18/16 20:25 08/19/16 01:27 08/19/16 02:02 Bedside Glucose 134 197 161 196 Test 08/19/16 04:36 08/19/16 06:37 08/19/16 08:45 08/19/16 11:59 Bedside Glucose 134 148 140 White Blood Count 18.1 H Red Blood Count 3.33 L Hemoglobin 9.5 L Hematocrit 31.8 L Mean Corpuscular Volume 95.5 Mean Corpuscular Hemoglobin 28.5 L Mean Corpuscular Hemoglobin Concent 29.9 L Red Cell Distribution Width 15.5 H Platelet Count 168 Mean Platelet Volume 10.7 H Neutrophils % 94.8 H Lymphocytes % 1.4 L Monocytes % 2.5 Eosinophils % 0.1 Basophils % 0.1 Nucleated Red Blood Cells % 0.0 Neutrophils # 17.2 H Lymphocytes # 0.3 L Monocytes # 0.5 Eosinophils # 0.0 Basophils # 0.0 Nucleated Red Blood Cells # 0.0 Sodium Level 141 Potassium Level 5.1 Chloride Level 107 Carbon Dioxide Level 22 Anion Gap 17 H Blood Urea Nitrogen 50 H Creatinine 4.75 #H Glucose Level 134 Calcium Level 8.3 L Test 08/19/16 14:55 White Blood Count 16.7 H Red Blood Count 3.20 L Hemoglobin 9.2 L Hematocrit 30.4 L Mean Corpuscular Volume 95.0 Mean Corpuscular Hemoglobin 28.8 L Mean Corpuscular Hemoglobin Concent 30.3 L Red Cell Distribution Width 15.2 H Platelet Count 151 Mean Platelet Volume 10.7 H Neutrophils % 95.0 H Band Neutrophils % 2.0 Lymphocytes % 2.0 L Monocytes % 1.0 Neutrophils # 15.9 H Lymphocytes # 0.3 L Monocytes # 0.2 L Platelet Estimate PLT APPEAR ADEQUATE Large Platelets OCCASIONAL Macrocytosis OCCASIONAL Medications Medications Current Medications Atorvastatin Calcium (Lipitor) 40 mg HS PO Last administered on 08/18/16 20:22 ; Admin Dose 40 MG; Start 08/01/16 at 21:00 Calcitriol (Rocaltrol) 0.25 mcg DAILY PO Last administered on 08/19/16 08:55; Admin Dose 0.25 MCG; Start 08/01/16 at 09:00 Calcium/Vitamin D (Oyster Shell/ Vit-D (500/200)) 1 tab BID PO Last administered on 08/19/16 08:57; Admin Dose 1 TAB; Start 08/01/16 at 09:00 Hydralazine HCl (Apresoline) 50 mg Q8 PO Last administered on 08/18/16 06:09; Admin Dose 50 MG; Start 08/01/16 at 06:00 Paroxetine HCl (Paxil) 10 mg DAILY PO Last administered on 08/19/16 08:55; Admin Dose 10 MG; Start 08/01/16 at 09:00 Acetaminophen (Tylenol Tab) 650 mg Q4H PRN PO PAIN AND OR ELEVATED TEMP Last administered on 08/19/16 08:55; Admin Dose 650 MG; Start 08/01/16 at 00:30 Hydralazine HCl (Apresoline) 20 mg Q6H PRN IV ELEVATED BLOOD PRESSURE Last administered on 08/09/16 03:50; Admin Dose 20 MG; Start 08/01/16 at 00:30 Guaifenesin/ Dextromethorphan (Robitussin Dm Liquid Cup) 10 ml Q4H PRN PO COUGH Last administered on 08/10/16 09:37; Admin Dose 10 ML; Start 08/01/16 at 00:30 Epoetin Braden (Epogen (Esrd)) 6,000 units MoWeFr@17 SC Last administered on 08/18 17:09; Admin Dose 6,000 UNITS; Start 08/02/16 at 17:00 Linagliptin (Tradjenta) 5 mg DAILY PO Last administered on 08/19/16 08:56; Admin Dose 5 MG; Start 08/04/16 at 20:00 Salmeterol Xinafoate/ Fluticasone (Advair 250/50 Diskus) 1 inh BID INH Last administered on 08/19/16 08:58; Admin Dose 1 INH; Start 08/08/16 at 11:00 Montelukast Sodium (Singulair) 10 mg HS PO Last administered on 08/18/16 20:22 ; Admin Dose 10 MG; Start 08/08/16 at 21:00 Tiotropium [place] (Spiriva) 1 inh DAILY INH Last administered on 08/19/16 08: 58; Admin Dose 1 INH; Start 08/08/16 at 11:00 Insulin Aspart (Novolog Insulin Pen) NOVOLOG *MILD* ALGORI... Q4 SC Last administered on 08/19/16 09:10; Admin Dose 1 UNIT; Start 08/13/16 at 21:00 Miscellaneous Information 1 ea NOTE XX ; Start 08/13/16 at 17:30 Glucose (Glutose) 15 gm Q15M PRN PO DECREASED GLUCOSE; Start 08/13/16 at 17:30 Glucose (Glutose) 22.5 gm Q15M PRN PO DECREASED GLUCOSE; Start 08/13/16 at 17:30 Dextrose (D50w Syringe) 25 ml Q15M PRN IV DECREASED GLUCOSE; Start 08/13/16 at 17:30 Dextrose (D50w Syringe) 50 ml Q15M PRN IV DECREASED GLUCOSE; Start 08/13/16 at 17:30 Glucagon (Glucagen) 1 mg Q15M PRN IM DECREASED GLUCOSE; Start 08/13/16 at 17:30 Glucose 15 gm 15 gm Q15M PRN BUCCAL DECREASED GLUCOSE; Start 08/13/16 at 17:30 Vancomycin HCl (Vancocin) 250 ml @ 125 mls/hr Q96H IVPB Last administered on 12:01; Admin Dose 125 MLS/HR; Start 08/16/16 at 10:00 Amiodarone HCl 400 mg 400 mg BID PO Last administered on 08/19/16 08:57; Admin Dose 400 MG; Start 08/16/16 at 13:00 Sodium Chloride (1/2 NS) 1,000 ml @ 50 mls/hr Q20H IV Last administered on 17:09; Admin Dose 50 MLS/HR; Start 08/17/16 at 14:00 Apixaban (Eliquis) 5 mg BID PO Last administered on 08/19/16 08:56; Admin Dose 5 MG; Start 08/17/16 at 21:00 Digoxin (Digoxin) 0.125 mg DAILY@13 PO Last administered on 08/19/16 14:23; Admin Dose 0.125 MG; Start 08/18/16 at 13:00 Amikacin Sulfate (Amikacin Iv Per Pharmacy) AMIKACIN PER PHARMACY NOTE XX ; Start 08/18/16 at 16:30 Diltiazem HCl (Cardizem Cd) 240 mg DAILY PO Last administered on 08/19/16 08: 56; Admin Dose 240 MG; Start 08/19/16 at 09:00 Metoprolol Tartrate (Lopressor) 50 mg BID PO Last administered on 08/19/16 08: 57; Admin Dose 50 MG; Start 08/19/16 at 09:00 Phenol (Cepastat Lozenge) 1 lozenge Q1H PRN MT SORE THROAT; Start 08/19/16 at 16:30; Status DAT TOLENTINO MD Aug 19, 2016 16:46
--- NOTE | 2016-08-19 17:14 | CONS ---
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 Cont. linagliptin. 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 on chronic dialysis, with long-term current use of insulin Consultation Date/Type/Reason Admit Date/Time Jul 31, 2016 at 19:59 Initial Consult Date 08/06/16 Type of Consultation: Endocrinology Reason for Consultation T2DM management Referring Provider: LALA ORO 24 HR Interval Summary Constitutional: no complaints Detailed Summary ENT: dysphagia, pain Respiratory: no complaints Cardiovascular: no complaints Gastrointestinal: no complaints Genitourinary: no complaints Musculoskeletal: back pain Neurologic: no complaints Exam/Review of Systems Vital Signs Vitals VS - Last 72 Hours, by Label Date Time Temp Pulse Resp B/P Pulse Ox O2 Delivery O2 Flow Rate FiO2 08/19/16 16:37 97 08/19/16 15:57 98.3 75 18 107/53 98 08/19/16 15:11 100 22 96 Nasal Cannula 3.0 32 08/19/16 12:15 75 18 08/19/16 12:15 75 08/19/16 12:05 97.6 102 18 107/61 95 08/19/16 11:45 78 08/19/16 11:15 107 08/19/16 10:45 107 08/19/16 10:15 107 08/19/16 09:45 102 08/19/16 09:15 101 18 08/19/16 08:06 140 08/19/16 08:01 138 18 97 Venti Mask 35 08/19/16 07:57 98.6 91 20 137/70 97 08/19/16 04:27 139 08/19/16 04:10 93 9.0 35 08/19/16 03:59 98.3 71 20 126/66 96 08/19/16 02:33 3.0 08/19/16 02:32 96 18 92 Nasal Cannula 3.0 08/19/16 01:05 100 08/19/16 00:04 98.3 75 20 143/77 97 08/18/16 20:31 99 08/18/16 20:30 Nasal Cannula 3.0 08/18/16 20:15 98.8 106 20 148/65 96 08/18/16 20:07 3.0 08/18/16 20:02 92 20 93 Nasal Cannula 3.0 08/18/16 16:40 98.5 76 18 121/59 98 08/18/16 16:26 97 08/18/16 13:34 3.0 08/18/16 13:34 110 20 93 3.0 08/18/16 12:22 99.2 84 20 102/59 99 08/18/16 12:08 117 08/18/16 10:43 Nasal Cannula 3.0 08/18/16 08:10 104 08/18/16 07:52 98.9 117 19 123/65 96 08/18/16 07:47 110 20 Nasal Cannula 3.0 08/18/16 04:37 108 08/18/16 04:25 98.8 66 18 143/67 97 08/18/16 02:54 3.0 08/18/16 01:45 109 18 91 Nasal Cannula 3.0 08/18/16 01:43 109 18 93 Nasal Cannula 3.0 08/18/16 00:28 98.6 82 17 110/57 94 08/18/16 00:00 91 08/17/16 23:44 Nasal Cannula 3.0 08/17/16 22:51 3.0 08/17/16 21:07 118 08/17/16 20:00 98.7 70 18 128/58 96 08/17/16 19:22 104 20 92 Nasal Cannula 3.0 08/17/16 18:34 3.0 08/17/16 16:20 136 08/17/16 16:09 99.5 100 16 114/55 93 08/17/16 13:43 97 3.0 08/17/16 13:43 94 22 97 Nasal Cannula 3.0 08/17/16 12:22 99.1 104 16 123/67 94 08/17/16 12:14 116 08/17/16 08:30 114 08/17/16 08:05 Nasal Cannula 3.0 08/17/16 07:58 98.5 85 16 108/61 95 08/17/16 07:30 102 17 08/17/16 07:24 93 3.0 08/17/16 07:24 93 20 93 Nasal Cannula 3.0 08/17/16 07:00 101 08/17/16 06:30 101 08/17/16 06:00 101 08/17/16 05:30 101 08/17/16 05:00 105 08/17/16 04:30 95 18 08/17/16 04:05 109 08/17/16 04:00 98.0 95 20 120/72 95 08/17/16 02:44 94 22 95 Nasal Cannula 3.0 08/17/16 02:43 3.0 08/17/16 01:03 Nasal Cannula 3.0 08/17/16 00:14 107 08/17/16 00:00 98.1 99 20 128/83 96 08/16/16 20:05 114 08/16/16 20:00 98.0 89 20 125/70 98 08/16/16 19:42 3.0 08/16/16 19:42 92 18 97 Nasal Cannula 3.0 Vital Signs Date Time Temp Pulse Resp B/P Pulse Ox O2 Delivery O2 Flow Rate FiO2 08/19/16 16:37 97 08/19/16 15:57 98.3 18 107/53 98 08/19/16 15:11 Nasal Cannula 3.0 32 Intake and Output 08/18/16 08/18/16 08/19/16 15:00 23:00 07:00 Intake Total 594.8 ml 400 ml Balance 594.8 ml 400 ml Exam Constitutional: alert, frail, obese, oriented Psych: nl mood/affect, no complaints Respiratory: clear to auscultation, normal air movement Cardiovascular: regular rate and rhythm, No edema, No murmurs/extra sounds, No rub Gastrointestinal: bowel sounds, nl liver, spleen, non-tender, soft, No mass, No rebound or guarding Musculoskeletal: nl extremities to inspection Extremities: normal pulses, No clubbing, No cyanosis, No edema 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, nl mental status, nl speech, nl strength Additional Comments Bedside Glucose - 72 Hours Test 08/16/16 17:15 08/16/16 21:09 08/17/16 01:58 08/17/16 05:42 Bedside Glucose 130mg/dL (70-220) 207mg/dL (70-220) 175mg/dL (70-220) 160mg/dL (70-220) Test 08/17/16 08:07 08/17/16 12:30 08/17/16 17:58 08/17/16 22:17 Bedside Glucose 178mg/dL (70-220) 194mg/dL (70-220) 190mg/dL (70-220) 176mg/dL (70-220) Test 08/18/16 01:46 08/18/16 06:01 08/18/16 07:46 08/18/16 12:43 Bedside Glucose 166mg/dL (70-220) 128mg/dL (70-220) 160mg/dL (70-220) 136mg/dL (70-220) Test 08/18/16 17:11 08/18/16 20:25 08/19/16 01:27 08/19/16 02:02 Bedside Glucose 134mg/dL (70-220) 197mg/dL (70-220) 161mg/dL (70-220) 196mg/dL (70-220) Test 08/19/16 04:36 08/19/16 08:45 08/19/16 11:59 Bedside Glucose 134mg/dL (70-220) 148mg/dL (70-220) 140mg/dL (70-220) Results Result Diagram: 08/19/16 1455 08/19/16 0637 Results 24 hrs Laboratory Tests Test 08/18/16 17:11 08/18/16 20:25 08/19/16 01:27 08/19/16 02:02 Bedside Glucose 134 197 161 196 Test 08/19/16 04:36 08/19/16 06:37 08/19/16 08:45 08/19/16 11:59 Bedside Glucose 134 148 140 White Blood Count 18.1 H Red Blood Count 3.33 L Hemoglobin 9.5 L Hematocrit 31.8 L Mean Corpuscular Volume 95.5 Mean Corpuscular Hemoglobin 28.5 L Mean Corpuscular Hemoglobin Concent 29.9 L Red Cell Distribution Width 15.5 H Platelet Count 168 Mean Platelet Volume 10.7 H Neutrophils % 94.8 H Lymphocytes % 1.4 L Monocytes % 2.5 Eosinophils % 0.1 Basophils % 0.1 Nucleated Red Blood Cells % 0.0 Neutrophils # 17.2 H Lymphocytes # 0.3 L Monocytes # 0.5 Eosinophils # 0.0 Basophils # 0.0 Nucleated Red Blood Cells # 0.0 Sodium Level 141 Potassium Level 5.1 Chloride Level 107 Carbon Dioxide Level 22 Anion Gap 17 H Blood Urea Nitrogen 50 H Creatinine 4.75 #H Glucose Level 134 Calcium Level 8.3 L Test 08/19/16 14:55 White Blood Count 16.7 H Red Blood Count 3.20 L Hemoglobin 9.2 L Hematocrit 30.4 L Mean Corpuscular Volume 95.0 Mean Corpuscular Hemoglobin 28.8 L Mean Corpuscular Hemoglobin Concent 30.3 L Red Cell Distribution Width 15.2 H Platelet Count 151 Mean Platelet Volume 10.7 H Neutrophils % 95.0 H Band Neutrophils % 2.0 Lymphocytes % 2.0 L Monocytes % 1.0 Neutrophils # 15.9 H Lymphocytes # 0.3 L Monocytes # 0.2 L Platelet Estimate PLT APPEAR ADEQUATE Large Platelets OCCASIONAL Macrocytosis OCCASIONAL Medications Medications Current Medications Atorvastatin Calcium (Lipitor) 40 mg HS PO Last administered on 08/18/16 20:22 ; Admin Dose 40 MG; Start 08/01/16 at 21:00 Calcitriol (Rocaltrol) 0.25 mcg DAILY PO Last administered on 08/19/16 08:55; Admin Dose 0.25 MCG; Start 08/01/16 at 09:00 Calcium/Vitamin D (Oyster Shell/ Vit-D (500/200)) 1 tab BID PO Last administered on 08/19/16 08:57; Admin Dose 1 TAB; Start 08/01/16 at 09:00 Hydralazine HCl (Apresoline) 50 mg Q8 PO Last administered on 08/18/16 06:09; Admin Dose 50 MG; Start 08/01/16 at 06:00 Paroxetine HCl (Paxil) 10 mg DAILY PO Last administered on 08/19/16 08:55; Admin Dose 10 MG; Start 08/01/16 at 09:00 Acetaminophen (Tylenol Tab) 650 mg Q4H PRN PO PAIN AND OR ELEVATED TEMP Last administered on 08/19/16 08:55; Admin Dose 650 MG; Start 08/01/16 at 00:30 Hydralazine HCl (Apresoline) 20 mg Q6H PRN IV ELEVATED BLOOD PRESSURE Last administered on 08/09/16 03:50; Admin Dose 20 MG; Start 08/01/16 at 00:30 Guaifenesin/ Dextromethorphan (Robitussin Dm Liquid Cup) 10 ml Q4H PRN PO COUGH Last administered on 08/10/16 09:37; Admin Dose 10 ML; Start 08/01/16 at 00:30 Epoetin Braden (Epogen (Esrd)) 6,000 units MoWeFr@17 SC Last administered on 08/18 17:09; Admin Dose 6,000 UNITS; Start 08/02/16 at 17:00 Linagliptin (Tradjenta) 5 mg DAILY PO Last administered on 08/19/16 08:56; Admin Dose 5 MG; Start 08/04/16 at 20:00 Salmeterol Xinafoate/ Fluticasone (Advair 250/50 Diskus) 1 inh BID INH Last administered on 08/19/16 08:58; Admin Dose 1 INH; Start 08/08/16 at 11:00 Montelukast Sodium (Singulair) 10 mg HS PO Last administered on 08/18/16 20:22 ; Admin Dose 10 MG; Start 08/08/16 at 21:00 Tiotropium [place] (Spiriva) 1 inh DAILY INH Last administered on 08/19/16 08: 58; Admin Dose 1 INH; Start 08/08/16 at 11:00 Insulin Aspart (Novolog Insulin Pen) NOVOLOG *MILD* ALGORI... Q4 SC Last administered on 08/19/16 09:10; Admin Dose 1 UNIT; Start 08/13/16 at 21:00 Miscellaneous Information 1 ea NOTE XX ; Start 08/13/16 at 17:30 Glucose (Glutose) 15 gm Q15M PRN PO DECREASED GLUCOSE; Start 08/13/16 at 17:30 Glucose (Glutose) 22.5 gm Q15M PRN PO DECREASED GLUCOSE; Start 08/13/16 at 17:30 Dextrose (D50w Syringe) 25 ml Q15M PRN IV DECREASED GLUCOSE; Start 08/13/16 at 17:30 Dextrose (D50w Syringe) 50 ml Q15M PRN IV DECREASED GLUCOSE; Start 08/13/16 at 17:30 Glucagon (Glucagen) 1 mg Q15M PRN IM DECREASED GLUCOSE; Start 08/13/16 at 17:30 Glucose 15 gm 15 gm Q15M PRN BUCCAL DECREASED GLUCOSE; Start 08/13/16 at 17:30 Vancomycin HCl (Vancocin) 250 ml @ 125 mls/hr Q96H IVPB Last administered on 12:01; Admin Dose 125 MLS/HR; Start 08/16/16 at 10:00 Amiodarone HCl 400 mg 400 mg BID PO Last administered on 08/19/16 08:57; Admin Dose 400 MG; Start 08/16/16 at 13:00 Sodium Chloride (1/2 NS) 1,000 ml @ 50 mls/hr Q20H IV Last administered on 17:09; Admin Dose 50 MLS/HR; Start 08/17/16 at 14:00 Apixaban (Eliquis) 5 mg BID PO Last administered on 08/19/16 08:56; Admin Dose 5 MG; Start 08/17/16 at 21:00 Digoxin (Digoxin) 0.125 mg DAILY@13 PO Last administered on 08/19/16 14:23; Admin Dose 0.125 MG; Start 08/18/16 at 13:00 Amikacin Sulfate (Amikacin Iv Per Pharmacy) AMIKACIN PER PHARMACY NOTE XX ; Start 08/18/16 at 16:30 Diltiazem HCl (Cardizem Cd) 240 mg DAILY PO Last administered on 08/19/16 08: 56; Admin Dose 240 MG; Start 08/19/16 at 09:00 Metoprolol Tartrate (Lopressor) 50 mg BID PO Last administered on 08/19/16 08: 57; Admin Dose 50 MG; Start 08/19/16 at 09:00 Phenol (Cepastat Lozenge) 1 lozenge Q1H PRN MT SORE THROAT; Start 08/19/16 at 16:30 JUDAH NOE MD Aug 19, 2016 17:14
[2016-08-19] MEDS: Insulin NOVOLOG SS MILD Algorithm (SS with meals and bedtime) SC SCH (21:00)
[2016-08-19] MEDS ORDERED: INSULIN ASPART [NOVOLOG] 3 ML PEN SC SCH (21:00)
[2016-08-19] MEDS: MONTELUKAST 10 MG TAB PO SCH (21:17)
[2016-08-19] MEDS: ATORVASTATIN 40 MG TAB PO SCH (21:17)
--- NOTE | 2016-08-19 21:55 | CONS ---
Date/Time of Note Date/Time of Note DATE: 08/19/16 TIME: 21:54 Consult Date/Type/Reason Admit Date/Time Jul 31, 2016 at 19:59 Initial Consult Date 08/06/16 Type of Consultation: Cardiac and vasc int Ordering Provider: LALA ORO Objective Vital Signs Date Time Temp Pulse Resp B/P Pulse Ox O2 Delivery O2 Flow Rate FiO2 08/19/16 20:25 73 93 40 08/19/16 20:07 98.3 18 135/61 08/19/16 20:04 Nasal Cannula 4.0 Intake and Output 08/18/16 08/18/16 08/19/16 15:00 23:00 07:00 Intake Total 594.8 ml 400 ml Balance 594.8 ml 400 ml Results/Medications Result Diagram: 08/19/16 1455 08/19/16 0637 Results 24 hrs Laboratory Tests Test 08/19/16 01:27 08/19/16 02:02 08/19/16 04:36 08/19/16 06:37 Bedside Glucose 161 196 134 White Blood Count 18.1 H Red Blood Count 3.33 L Hemoglobin 9.5 L Hematocrit 31.8 L Mean Corpuscular Volume 95.5 Mean Corpuscular Hemoglobin 28.5 L Mean Corpuscular Hemoglobin Concent 29.9 L Red Cell Distribution Width 15.5 H Platelet Count 168 Mean Platelet Volume 10.7 H Neutrophils % 94.8 H Lymphocytes % 1.4 L Monocytes % 2.5 Eosinophils % 0.1 Basophils % 0.1 Nucleated Red Blood Cells % 0.0 Neutrophils # 17.2 H Lymphocytes # 0.3 L Monocytes # 0.5 Eosinophils # 0.0 Basophils # 0.0 Nucleated Red Blood Cells # 0.0 Sodium Level 141 Potassium Level 5.1 Chloride Level 107 Carbon Dioxide Level 22 Anion Gap 17 H Blood Urea Nitrogen 50 H Creatinine 4.75 #H Glucose Level 134 Calcium Level 8.3 L Test 08/19/16 08:45 08/19/16 11:59 08/19/16 14:55 08/19/16 17:20 Bedside Glucose 148 140 198 White Blood Count 16.7 H Red Blood Count 3.20 L Hemoglobin 9.2 L Hematocrit 30.4 L Mean Corpuscular Volume 95.0 Mean Corpuscular Hemoglobin 28.8 L Mean Corpuscular Hemoglobin Concent 30.3 L Red Cell Distribution Width 15.2 H Platelet Count 151 Mean Platelet Volume 10.7 H Neutrophils % 95.0 H Band Neutrophils % 2.0 Lymphocytes % 2.0 L Monocytes % 1.0 Neutrophils # 15.9 H Lymphocytes # 0.3 L Monocytes # 0.2 L Platelet Estimate PLT APPEAR ADEQUATE Large Platelets OCCASIONAL Macrocytosis OCCASIONAL Test 08/19/16 21:08 Bedside Glucose 70 Medications Current Medications Atorvastatin Calcium (Lipitor) 40 mg HS PO Last administered on 08/19/16 21:17 ; Admin Dose 40 MG; Start 08/01/16 at 21:00 Calcitriol (Rocaltrol) 0.25 mcg DAILY PO Last administered on 08/19/16 08:55; Admin Dose 0.25 MCG; Start 08/01/16 at 09:00 Calcium/Vitamin D (Oyster Shell/ Vit-D (500/200)) 1 tab BID PO Last administered on 08/19/16 21:17; Admin Dose 1 TAB; Start 08/01/16 at 09:00 Hydralazine HCl (Apresoline) 50 mg Q8 PO Last administered on 08/18/16 06:09; Admin Dose 50 MG; Start 08/01/16 at 06:00 Paroxetine HCl (Paxil) 10 mg DAILY PO Last administered on 08/19/16 08:55; Admin Dose 10 MG; Start 08/01/16 at 09:00 Acetaminophen (Tylenol Tab) 650 mg Q4H PRN PO PAIN AND OR ELEVATED TEMP Last administered on 08/19/16 08:55; Admin Dose 650 MG; Start 08/01/16 at 00:30 Hydralazine HCl (Apresoline) 20 mg Q6H PRN IV ELEVATED BLOOD PRESSURE Last administered on 08/09/16 03:50; Admin Dose 20 MG; Start 08/01/16 at 00:30 Guaifenesin/ Dextromethorphan (Robitussin Dm Liquid Cup) 10 ml Q4H PRN PO COUGH Last administered on 08/10/16 09:37; Admin Dose 10 ML; Start 08/01/16 at 00:30 Epoetin Braden (Epogen (Esrd)) 6,000 units MoWeFr@17 SC Last administered on 08/18 17:09; Admin Dose 6,000 UNITS; Start 08/02/16 at 17:00 Linagliptin (Tradjenta) 5 mg DAILY PO Last administered on 08/19/16 08:56; Admin Dose 5 MG; Start 08/04/16 at 20:00 Salmeterol Xinafoate/ Fluticasone (Advair 250/50 Diskus) 1 inh BID INH Last administered on 08/19/16 21:10; Admin Dose 1 INH; Start 08/08/16 at 11:00 Montelukast Sodium (Singulair) 10 mg HS PO Last administered on 08/19/16 21:17 ; Admin Dose 10 MG; Start 08/08/16 at 21:00 Tiotropium [place] (Spiriva) 1 inh DAILY INH Last administered on 08/19/16 08: 58; Admin Dose 1 INH; Start 08/08/16 at 11:00 Miscellaneous Information 1 ea NOTE XX ; Start 08/13/16 at 17:30 Glucose (Glutose) 15 gm Q15M PRN PO DECREASED GLUCOSE; Start 08/13/16 at 17:30 Glucose (Glutose) 22.5 gm Q15M PRN PO DECREASED GLUCOSE; Start 08/13/16 at 17:30 Dextrose (D50w Syringe) 25 ml Q15M PRN IV DECREASED GLUCOSE; Start 08/13/16 at 17:30 Dextrose (D50w Syringe) 50 ml Q15M PRN IV DECREASED GLUCOSE; Start 08/13/16 at 17:30 Glucagon (Glucagen) 1 mg Q15M PRN IM DECREASED GLUCOSE; Start 08/13/16 at 17:30 Glucose 15 gm 15 gm Q15M PRN BUCCAL DECREASED GLUCOSE; Start 08/13/16 at 17:30 Vancomycin HCl (Vancocin) 250 ml @ 125 mls/hr Q96H IVPB Last administered on 12:01; Admin Dose 125 MLS/HR; Start 08/16/16 at 10:00 Amiodarone HCl (Cordarone) 400 mg BID PO Last administered on 08/19/16 21:16; Admin Dose 400 MG; Start 08/16/16 at 13:00 Apixaban (Eliquis) 5 mg BID PO Last administered on 08/19/16 21:17; Admin Dose 5 MG; Start 08/17/16 at 21:00 Digoxin (Digoxin) 0.125 mg DAILY@13 PO Last administered on 08/19/16 14:23; Admin Dose 0.125 MG; Start 08/18/16 at 13:00 Amikacin Sulfate (Amikacin Iv Per Pharmacy) AMIKACIN PER PHARMACY NOTE XX ; Start 08/18/16 at 16:30 Diltiazem HCl (Cardizem Cd) 240 mg DAILY PO Last administered on 08/19/16 08: 56; Admin Dose 240 MG; Start 08/19/16 at 09:00 Metoprolol Tartrate (Lopressor) 50 mg BID PO Last administered on 08/19/16 21: 17; Admin Dose 50 MG; Start 08/19/16 at 09:00 Phenol (Cepastat Lozenge) 1 lozenge Q1H PRN MT SORE THROAT Last administered on 08/19/16 18:56; Admin Dose 1 LOZENGE; Start 08/19/16 at 16:30 Diagnostic Test (Pha) (Accu-Chek) 1 ea 02 XX ; Start 08/20/16 at 02:00 Nystatin (Nystatin Powder) 1 applic BID TOP ; Start 08/19/16 at 21:00 Assessment/Plan Chief Complaint/Hosp Course Patient is 85 year old F with PMH of HTN, HLD, CKD now presentezd with SOB and ESRD was started on HD. She already has been planning for Stage IV CKD and had fistula done already. Pt does have some SOB. significant Leg edema. Likely realted to CKD and Diastolic HF. LVEF is nl. Problems: Additional Assessment/Plan Afib HTN PNA rate controlled. last night pt went up to 140s increased metoprolol and cardizem continue amio and dig under 110 is stable will /uf SIERRA GARCIA MD Aug 19, 2016 21:55
[2016-08-19] MEDS: NYSTATIN 30 GM POWDER BTL TOP SCH (22:04)
[2016-08-20] VITALS (17 sets, daily range): BP systolic 119–138; BP diastolic 42–63; PULSE 70–103; RESP 16–21
[2016-08-20] MEDS: ALBUTEROL/IPRATROPIUM (NEB) 3 ML AMP HHN SCH ×4 (01:43→19:58)
[2016-08-20] MEDS: ACCUCHECK AT 2AM (Patients on SS coverage) XX SCH (02:00)
[2016-08-20] MEDS: FUROSEMIDE 40 MG INJ IV SCH ×2 (06:01→18:23)
[2016-08-20 07:17] LABS: POTASSIUM 3.6 mmol/L (3.5-5.1)
[2016-08-20 07:19] LABS: CREATININE 2.72 mg/dl (0.44-1.00)
[2016-08-20 07:20] LABS: CALCIUM 7.9 mg/dl (8.4-10.2)
[2016-08-20] MEDS: Insulin NOVOLOG SS MILD Algorithm (SS with meals and bedtime) SC SCH ×4 (07:25→21:00)
--- NOTE | 2016-08-20 07:54 | CONS ---
Date/Time of Note Date/Time of Note DATE: 08/20/16 TIME: 07:53 Consult Date/Type/Reason Admit Date/Time Jul 31, 2016 at 19:59 Initial Consult Date 08/06/16 Type of Consultation: Cardiac and vasc int Ordering Provider: LALA ORO Objective Vital Signs Date Time Temp Pulse Resp B/P Pulse Ox O2 Delivery O2 Flow Rate FiO2 08/20/16 07:36 97.9 56 19 122/42 94 08/20/16 02:05 5.0 08/20/16 01:43 Nasal Cannula 08/19/16 22:30 40 Intake and Output 08/19/16 08/19/16 08/20/16 15:00 23:00 07:00 Intake Total 300 ml 800 ml Output Total 2000 ml Balance -1700 ml 800 ml Results/Medications Result Diagram: 08/19/16 1455 08/20/16 0650 Results 24 hrs Laboratory Tests Test 08/19/16 08:45 08/19/16 11:59 08/19/16 14:55 08/19/16 17:20 Bedside Glucose 148 140 198 White Blood Count 16.7 H Red Blood Count 3.20 L Hemoglobin 9.2 L Hematocrit 30.4 L Mean Corpuscular Volume 95.0 Mean Corpuscular Hemoglobin 28.8 L Mean Corpuscular Hemoglobin Concent 30.3 L Red Cell Distribution Width 15.2 H Platelet Count 151 Mean Platelet Volume 10.7 H Neutrophils % 95.0 H Band Neutrophils % 2.0 Lymphocytes % 2.0 L Monocytes % 1.0 Neutrophils # 15.9 H Lymphocytes # 0.3 L Monocytes # 0.2 L Platelet Estimate PLT APPEAR ADEQUATE Large Platelets OCCASIONAL Macrocytosis OCCASIONAL Test 08/19/16 21:08 08/20/16 06:50 08/20/16 07:34 Bedside Glucose 70 66 L Sodium Level 134 L Potassium Level 3.6 Chloride Level 98 Carbon Dioxide Level 23 Anion Gap 17 H Blood Urea Nitrogen 28 #H Creatinine 2.72 #H Glucose Level 70 # Calcium Level 7.9 L Medications Current Medications Atorvastatin Calcium (Lipitor) 40 mg HS PO Last administered on 08/19/16 21:17 ; Admin Dose 40 MG; Start 08/01/16 at 21:00 Calcitriol (Rocaltrol) 0.25 mcg DAILY PO Last administered on 08/19/16 08:55; Admin Dose 0.25 MCG; Start 08/01/16 at 09:00 Calcium/Vitamin D (Oyster Shell/ Vit-D (500/200)) 1 tab BID PO Last administered on 08/19/16 21:17; Admin Dose 1 TAB; Start 08/01/16 at 09:00 Hydralazine HCl (Apresoline) 50 mg Q8 PO Last administered on 08/20/16 06:01; Admin Dose 50 MG; Start 08/01/16 at 06:00 Paroxetine HCl (Paxil) 10 mg DAILY PO Last administered on 08/19/16 08:55; Admin Dose 10 MG; Start 08/01/16 at 09:00 Acetaminophen (Tylenol Tab) 650 mg Q4H PRN PO PAIN AND OR ELEVATED TEMP Last administered on 08/19/16 08:55; Admin Dose 650 MG; Start 08/01/16 at 00:30 Hydralazine HCl (Apresoline) 20 mg Q6H PRN IV ELEVATED BLOOD PRESSURE Last administered on 08/09/16 03:50; Admin Dose 20 MG; Start 08/01/16 at 00:30 Guaifenesin/ Dextromethorphan (Robitussin Dm Liquid Cup) 10 ml Q4H PRN PO COUGH Last administered on 08/10/16 09:37; Admin Dose 10 ML; Start 08/01/16 at 00:30 Epoetin [place]aden (Epogen (Esrd)) 6,000 units MoWeFr@17 SC Last administered on 08/18 17:09; Admin Dose 6,000 UNITS; Start 08/02/16 at 17:00 Linagliptin (Tradjenta) 5 mg DAILY PO Last administered on 08/19/16 08:56; Admin Dose 5 MG; Start 08/04/16 at 20:00 Salmeterol Xinafoate/ Fluticasone (Advair 250/50 Diskus) 1 inh BID INH Last administered on 08/19/16 21:10; Admin Dose 1 INH; Start 08/08/16 at 11:00 Montelukast Sodium (Singulair) 10 mg HS PO Last administered on 08/19/16 21:17 ; Admin Dose 10 MG; Start 08/08/16 at 21:00 Tiotropium [place] (Spiriva) 1 inh DAILY INH Last administered on 08/19/16 08: 58; Admin Dose 1 INH; Start 08/08/16 at 11:00 Miscellaneous Information 1 ea NOTE XX ; Start 08/13/16 at 17:30 Glucose (Glutose) 15 gm Q15M PRN PO DECREASED GLUCOSE; Start 08/13/16 at 17:30 Glucose (Glutose) 22.5 gm Q15M PRN PO DECREASED GLUCOSE; Start 08/13/16 at 17:30 Dextrose (D50w Syringe) 25 ml Q15M PRN IV DECREASED GLUCOSE; Start 08/13/16 at 17:30 Dextrose (D50w Syringe) 50 ml Q15M PRN IV DECREASED GLUCOSE; Start 08/13/16 at 17:30 Glucagon (Glucagen) 1 mg Q15M PRN IM DECREASED GLUCOSE; Start 08/13/16 at 17:30 Glucose 15 gm 15 gm Q15M PRN BUCCAL DECREASED GLUCOSE; Start 08/13/16 at 17:30 Vancomycin HCl (Vancocin) 250 ml @ 125 mls/hr Q96H IVPB Last administered on 12:01; Admin Dose 125 MLS/HR; Start 08/16/16 at 10:00 Amiodarone HCl (Cordarone) 400 mg BID PO Last administered on 08/19/16 21:16; Admin Dose 400 MG; Start 08/16/16 at 13:00 Apixaban (Eliquis) 5 mg BID PO Last administered on 08/19/16 21:17; Admin Dose 5 MG; Start 08/17/16 at 21:00 Digoxin (Digoxin) 0.125 mg DAILY@13 PO Last administered on 08/19/16 14:23; Admin Dose 0.125 MG; Start 08/18/16 at 13:00 Amikacin Sulfate (Amikacin Iv Per Pharmacy) AMIKACIN PER PHARMACY NOTE XX ; Start 08/18/16 at 16:30 Diltiazem HCl (Cardizem Cd) 240 mg DAILY PO Last administered on 08/19/16 08: 56; Admin Dose 240 MG; Start 08/19/16 at 09:00 Metoprolol Tartrate (Lopressor) 50 mg BID PO Last administered on 08/19/16 21: 17; Admin Dose 50 MG; Start 08/19/16 at 09:00 Phenol (Cepastat Lozenge) 1 lozenge Q1H PRN MT SORE THROAT Last administered on 08/19/16t 18:56; Admin Dose 1 LOZENGE; Start 08/19/16 at 16:30 Diagnostic Test (Pha) (Accu-Chek) 1 ea 02 XX ; Start 08/20/16 at 02:00 Nystatin (Nystatin Powder) 1 applic BID TOP Last administered on 08/19/16 22: 04; Admin Dose 1 APPLIC; Start 08/19/16 at 21:00 Assessment/Plan Chief Complaint/Hosp Course Patient is 85 year old F with PMH of HTN, HLD, CKD now presentezd with SOB and ESRD was started on HD. She already has been planning for Stage IV CKD and had fistula done already. Pt does have some SOB. significant Leg edema. Likely realted to CKD and Diastolic HF. LVEF is nl. Problems: Additional Assessment/Plan Aflutter/Fib PAD- Stable HTN ESRD Pt doing much better bipap at night still in fib blutter controlled rate at 100s stable <120 fib is fine on increased dose of BB and CCB d/c plan per PMD pt will /fu in office for her cardiac and vascular issues SIERRA GARCIA MD Aug 20, 2016 07:54
[2016-08-20] MEDS: SALMETEROL/FLUTICASONE 250/50 INHA INH SCH ×2 (08:40→20:52)
[2016-08-20] MEDS: CALCIUM ACETATE 667 MG CAP PO SCH ×3 (08:40→17:55)
[2016-08-20] MEDS: CALCITRIOL 0.25 MCG CAP PO SCH (08:40)
[2016-08-20] MEDS: APIXABAN 5 MG TABLET PO SCH ×2 (08:41→20:47)
[2016-08-20] MEDS: AMIODARONE 200 MG TAB PO SCH (08:41)
[2016-08-20] MEDS: CALCIUM/VITAMIN D (500/200) TAB PO SCH ×2 (08:41→20:47)
[2016-08-20] MEDS: NYSTATIN 30 GM POWDER BTL TOP SCH ×2 (08:42→21:00)
[2016-08-20] MEDS: PAROXETINE 10 MG TAB PO SCH (08:42)
[2016-08-20] MEDS: DILTIAZEM (CD) 240 MG CAP PO SCH (08:42)
[2016-08-20] MEDS: LINAGLIPTIN 5 MG TABLET PO SCH (08:42)
[2016-08-20] MEDS: METOPROLOL 25 MG TAB PO SCH ×2 (08:42→20:49)
[2016-08-20] MEDS: CLOTRIMAZOLE 10 MG TROCHE MT SCH ×5 (08:44→20:51)
[2016-08-20] MEDS: TIOTROPIUM 18 MCG CAPSULE INHA DEV INH SCH (10:27)
[2016-08-20] MEDS: VANCOMYCIN 1 GM in NS 250 ML IVPB SCH (10:27)
--- NOTE | 2016-08-20 12:07 | CONS ---
Date/Time of Note Date/Time of Note DATE: 08/20/16 TIME: 12:05 Assessment/Plan Assessment/Plan Additional Assessment/Plan Chest x-ray was reviewed from yesterday evening which is showing increasing right pleural effusion with mild pulmonary edema bilaterally. BiPAP settings; IPAP of 12 PEEP of 6, 40% FiO2. Assessment recommendations; 1. Patient admitted for acute renal failure now requiring hemodialysis. 2. COPD. 3. Atrial fibrillation. 4. Diabetes and hypertension. 5. Recurrent right pleural effusion. 6. Pneumonia. Continue current treatment. Patient will need to have another right-sided thoracentesis performed.. Consultation Date/Type/Reason Admit Date/Time Jul 31, 2016 at 19:59 Initial Consult Date 08/06/16 Type of Consultation: Pulmonary/critical care Referring Provider: LALA ORO 24 HR Interval Summary Free Text/Dictation Patient condition is tenuous at best. Now on BiPAP. But she is reporting improved shortness of breath, patient remains awake alert. Has any cough, chest pain. General exam; elderly lady, awake currently in no distress on BiPAP. Exam/Review of Systems Vital Signs Vitals Vital Signs Date Time Temp Pulse Resp B/P Pulse Ox O2 Delivery O2 Flow Rate FiO2 08/20/16 09:15 75 95 40 08/20/16 08:57 24 Nasal Cannula 4.0 08/20/16 07:36 97.9 122/42 Intake and Output 08/19/16 08/19/16 08/20/16 15:00 23:00 07:00 Intake Total 300 ml 800 ml Output Total 2000 ml Balance -1700 ml 800 ml Exam HEENT exam is; supple neck, positive JVD. No lymphadenopathy. Midline trachea. Patient is edentulous. Has bilateral intraocular lens implants. Chest examined; diminished breath sounds right lung, left lung is clear. S1-S2 audible, irregular rhythm. Abdomen examination; soft, nondistended. No organomegaly. Nontender. Bowel sounds audible. Extremity exam; no peripheral edema. Patient does have extensive ecchymosis involving the right upper extremity. SLACKMAN examination; no focal deficit. Results Result Diagram: 08/19/16 1455 08/20/16 0650 Results 24 hrs Laboratory Tests Test 08/19/16 14:55 08/19/16 17:20 08/19/16 21:08 08/20/16 06:50 White Blood Count 16.7 H Red Blood Count 3.20 L Hemoglobin 9.2 L Hematocrit 30.4 L Mean Corpuscular Volume 95.0 Mean Corpuscular Hemoglobin 28.8 L Mean Corpuscular Hemoglobin Concent 30.3 L Red Cell Distribution Width 15.2 H Platelet Count 151 Mean Platelet Volume 10.7 H Neutrophils % 95.0 H Band Neutrophils % 2.0 Lymphocytes % 2.0 L Monocytes % 1.0 Neutrophils # 15.9 H Lymphocytes # 0.3 L Monocytes # 0.2 L Platelet Estimate PLT APPEAR ADEQUATE Large Platelets OCCASIONAL Macrocytosis OCCASIONAL Hemoglobin A1c 6.3 H Bedside Glucose 198 70 Sodium Level 134 L Potassium Level 3.6 Chloride Level 98 Carbon Dioxide Level 23 Anion Gap 17 H Blood Urea Nitrogen 28 #H Creatinine 2.72 #H Glucose Level 70 # Calcium Level 7.9 L Test 08/20/16 07:34 08/20/16 11:42 Bedside Glucose 66 L 99 Medications Medications Current Medications Atorvastatin Calcium (Lipitor) 40 mg HS PO Last administered on 08/19/16 21:17 ; Admin Dose 40 MG; Start 08/01/16 at 21:00 Calcitriol (Rocaltrol) 0.25 mcg DAILY PO Last administered on 08/20/16 08:40; Admin Dose 0.25 MCG; Start 08/01/16 at 09:00 Calcium/Vitamin D (Oyster Shell/ Vit-D (500/200)) 1 tab BID PO Last administered on 08/20/16 08:41; Admin Dose 1 TAB; Start 08/01/16 at 09:00 Hydralazine HCl (Apresoline) 50 mg Q8 PO Last administered on 08/20/16 06:01; Admin Dose 50 MG; Start 08/01/16 at 06:00 Paroxetine HCl (Paxil) 10 mg DAILY PO Last administered on 08/20/16 08:42; Admin Dose 10 MG; Start 08/01/16 at 09:00 Acetaminophen (Tylenol Tab) 650 mg Q4H PRN PO PAIN AND OR ELEVATED TEMP Last administered on 08/19/16 08:55; Admin Dose 650 MG; Start 08/01/16 at 00:30 Hydralazine HCl (Apresoline) 20 mg Q6H PRN IV ELEVATED BLOOD PRESSURE Last administered on 08/09/16 03:50; Admin Dose 20 MG; Start 08/01/16 at 00:30 Guaifenesin/ Dextromethorphan (Robitussin Dm Liquid Cup) 10 ml Q4H PRN PO COUGH Last administered on 08/10/16 09:37; Admin Dose 10 ML; Start 08/01/16 at 00:30 Epoetin Braden (Epogen (Esrd)) 6,000 units MoWeFr@17 SC Last administered on 08/18 17:09; Admin Dose 6,000 UNITS; Start 08/02/16 at 17:00 Linagliptin (Tradjenta) 5 mg DAILY PO Last administered on 08/20/16 08:42; Admin Dose 5 MG; Start 08/04/16 at 20:00 Salmeterol Xinafoate/ Fluticasone (Advair 250/50 Diskus) 1 inh BID INH Last administered on 08/20/16 08:40; Admin Dose 1 INH; Start 08/08/16 at 11:00 Montelukast Sodium (Singulair) 10 mg HS PO Last administered on 08/19/16 21:17 ; Admin Dose 10 MG; Start 08/08/16 at 21:00 Tiotropium [place] (Spiriva) 1 inh DAILY INH Last administered on 08/19/16 08: 58; Admin Dose 1 INH; Start 08/08/16 at 11:00 Miscellaneous Information 1 ea NOTE XX ; Start 08/13/16 at 17:30 Glucose (Glutose) 15 gm Q15M PRN PO DECREASED GLUCOSE; Start 08/13/16 at 17:30 Glucose (Glutose) 22.5 gm Q15M PRN PO DECREASED GLUCOSE; Start 08/13/16 at 17:30 Dextrose (D50w Syringe) 25 ml Q15M PRN IV DECREASED GLUCOSE; Start 08/13/16 at 17:30 Dextrose (D50w Syringe) 50 ml Q15M PRN IV DECREASED GLUCOSE; Start 08/13/16 at 17:30 Glucagon (Glucagen) 1 mg Q15M PRN IM DECREASED GLUCOSE; Start 08/13/16 at 17:30 Glucose 15 gm 15 gm Q15M PRN BUCCAL DECREASED GLUCOSE; Start 08/13/16 at 17:30 Vancomycin HCl (Vancocin) 250 ml @ 125 mls/hr Q96H IVPB Last administered on 10:27; Admin Dose 125 MLS/HR; Start 08/16/16 at 10:00 Amiodarone HCl (Cordarone) 400 mg BID PO Last administered on 08/20/16 08:41; Admin Dose 400 MG; Start 08/16/16 at 13:00 Apixaban (Eliquis) 5 mg BID PO Last administered on 08/20/16 08:41; Admin Dose 5 MG; Start 08/17/16 at 21:00 Digoxin (Digoxin) 0.125 mg DAILY@13 PO Last administered on 08/19/16 14:23; Admin Dose 0.125 MG; Start 08/18/16 at 13:00 Amikacin Sulfate (Amikacin Iv Per Pharmacy) AMIKACIN PER PHARMACY NOTE XX ; Start 08/18/16 at 16:30 Diltiazem HCl (Cardizem Cd) 240 mg DAILY PO Last administered on 08/20/16 08: 42; Admin Dose 240 MG; Start 08/19/16 at 09:00 Metoprolol Tartrate (Lopressor) 50 mg BID PO Last administered on 08/20/16 08: 42; Admin Dose 50 MG; Start 08/19/16 at 09:00 Phenol (Cepastat Lozenge) 1 lozenge Q1H PRN MT SORE THROAT Last administered on 08/19/16 18:56; Admin Dose 1 LOZENGE; Start 08/19/16 at 16:30 Diagnostic Test (Pha) (Accu-Chek) 1 ea 02 XX ; Start 08/20/16 at 02:00 Nystatin (Nystatin Powder) 1 applic BID TOP Last administered on 08/20/16 08: 42; Admin Dose 1 APPLIC; Start 08/19/16 at 21:00 KOFI HUERTA Aug 20, 2016 12:07
[2016-08-20] MEDS ORDERED: DIGOXIN 500 MCG INJ IV SCH (13:00)
[2016-08-20] MEDS: DEXTROSE 5%-0.45% NACL 1,000 ML IV SCH (14:53)
--- NOTE | 2016-08-20 15:26 | CONS ---
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 Would continue. No reason to think this was responsible for BG under 70 mg/dL this am. Will follow. 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 not on chronic dialysis, with long-term current use of insulin Consultation Date/Type/Reason Admit Date/Time Jul 31, 2016 at 19:59 Initial Consult Date 08/06/16 Type of Consultation: Endocrinology Reason for Consultation T2DM management Referring Provider: LALA ORO 24 HR Interval Summary Subjective hx not possible: pt non-verbal Constitutional: requiring O2 Exam/Review of Systems Vital Signs Vitals Vital Signs Date Time Temp Pulse Resp B/P Pulse Ox O2 Delivery O2 Flow Rate FiO2 08/20/16 14:04 77 21 94 08/20/16 13:30 40 08/20/16 12:00 97.6 119/58 08/20/16 08:57 Nasal Cannula 4.0 Intake and Output 08/19/16 08/19/16 08/20/16 15:00 23:00 07:00 Intake Total 300 ml 800 ml Output Total 2000 ml Balance -1700 ml 800 ml Exam Constitutional: alert, frail, obese, other (on BiPAP) Respiratory: clear to auscultation, normal air movement Cardiovascular: regular rate and rhythm, No edema, No murmurs/extra sounds, No rub Gastrointestinal: bowel sounds, nl liver, spleen, non-tender, soft, No mass, No rebound or guarding Musculoskeletal: nl extremities to inspection Extremities: No clubbing, No cyanosis, No edema 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: lethargic Additional Comments Bedside Glucose - 72 Hours Test 08/17/16 17:58 08/17/16 22:17 08/18/16 01:46 08/18/16 06:01 Bedside Glucose 190mg/dL (70-220) 176mg/dL (70-220) 166mg/dL (70-220) 128mg/dL (70-220) Test 08/18/16 07:46 08/18/16 12:43 08/18/16 17:11 08/18/16 20:25 Bedside Glucose 160mg/dL (70-220) 136mg/dL (70-220) 134mg/dL (70-220) 197mg/dL (70-220) Test 08/19/16 01:27 08/19/16 02:02 08/19/16 04:36 08/19/16 08:45 Bedside Glucose 161mg/dL (70-220) 196mg/dL (70-220) 134mg/dL (70-220) 148mg/dL (70-220) Test 08/19/16 11:59 08/19/16 17:20 08/19/16 21:08 08/20/16 07:34 Bedside Glucose 140mg/dL (70-220) 198mg/dL (70-220) 70mg/dL (70-220) 66mg/dL (70-220) L Test 08/20/16 11:42 Bedside Glucose 99mg/dL (70-220) Results Result Diagram: 08/19/16 1455 08/20/16 0650 Results 24 hrs Laboratory Tests Test 08/19/16 17:20 08/19/16 21:08 08/20/16 06:50 08/20/16 07:34 Bedside Glucose 198 70 66 L Sodium Level 134 L Potassium Level 3.6 Chloride Level 98 Carbon Dioxide Level 23 Anion Gap 17 H Blood Urea Nitrogen 28 #H Creatinine 2.72 #H Glucose Level 70 # Calcium Level 7.9 L Test 08/20/16 11:42 Bedside Glucose 99 Medications Medications Current Medications Atorvastatin Calcium (Lipitor) 40 mg HS PO Last administered on 08/19/16 21:17 ; Admin Dose 40 MG; Start 08/01/16 at 21:00 Calcitriol (Rocaltrol) 0.25 mcg DAILY PO Last administered on 08/20/16 08:40; Admin Dose 0.25 MCG; Start 08/01/16 at 09:00 Calcium/Vitamin D (Oyster Shell/ Vit-D (500/200)) 1 tab BID PO Last administered on 08/20/16 08:41; Admin Dose 1 TAB; Start 08/01/16 at 09:00 Hydralazine HCl (Apresoline) 50 mg Q8 PO Last administered on 08/20/16 06:01; Admin Dose 50 MG; Start 08/01/16 at 06:00 Paroxetine HCl (Paxil) 10 mg DAILY PO Last administered on 08/20/16 08:42; Admin Dose 10 MG; Start 08/01/16 at 09:00 Acetaminophen (Tylenol Tab) 650 mg Q4H PRN PO PAIN AND OR ELEVATED TEMP Last administered on 08/19/16 08:55; Admin Dose 650 MG; Start 08/01/16 at 00:30 Hydralazine HCl (Apresoline) 20 mg Q6H PRN IV ELEVATED BLOOD PRESSURE Last administered on 08/09/16 03:50; Admin Dose 20 MG; Start 08/01/16 at 00:30 Guaifenesin/ Dextromethorphan (Robitussin Dm Liquid Cup) 10 ml Q4H PRN PO COUGH Last administered on 08/10/16 09:37; Admin Dose 10 ML; Start 08/01/16 at 00:30 Epoetin [place] (Epogen (Esrd)) 6,000 units MoWeFr@17 SC Last administered on 08/18 17:09; Admin Dose 6,000 UNITS; Start 08/02/16 at 17:00 Linagliptin (Tradjenta) 5 mg DAILY PO Last administered on 08/20/16 08:42; Admin Dose 5 MG; Start 08/04/16 at 20:00 Salmeterol Xinafoate/ Fluticasone (Advair 250/50 Diskus) 1 inh BID INH Last administered on 08/20/16 08:40; Admin Dose 1 INH; Start 08/08/16 at 11:00 Montelukast Sodium (Singulair) 10 mg HS PO Last administered on 08/19/16 21:17 ; Admin Dose 10 MG; Start 08/08/16 at 21:00 Tiotropium [place] (Spiriva) 1 inh DAILY INH Last administered on 08/19/16 08: 58; Admin Dose 1 INH; Start 08/08/16 at 11:00 Miscellaneous Information 1 ea NOTE XX ; Start 08/13/16 at 17:30 Glucose (Glutose) 15 gm Q15M PRN PO DECREASED GLUCOSE; Start 08/13/16 at 17:30 Glucose (Glutose) 22.5 gm Q15M PRN PO DECREASED GLUCOSE; Start 08/13/16 at 17:30 Dextrose (D50w Syringe) 25 ml Q15M PRN IV DECREASED GLUCOSE; Start 08/13/16 at 17:30 Dextrose (D50w Syringe) 50 ml Q15M PRN IV DECREASED GLUCOSE; Start 08/13/16 at 17:30 Glucagon (Glucagen) 1 mg Q15M PRN IM DECREASED GLUCOSE; Start 08/13/16 at 17:30 Glucose 15 gm 15 gm Q15M PRN BUCCAL DECREASED GLUCOSE; Start 08/13/16 at 17:30 Vancomycin HCl (Vancocin) 250 ml @ 125 mls/hr Q96H IVPB Last administered on 10:27; Admin Dose 125 MLS/HR; Start 08/16/16 at 10:00 Apixaban (Eliquis) 5 mg BID PO Last administered on 08/20/16 08:41; Admin Dose 5 MG; Start 08/17/16 at 21:00 Amikacin Sulfate (Amikacin Iv Per Pharmacy) AMIKACIN PER PHARMACY NOTE XX ; Start 08/18/16 at 16:30 Metoprolol Tartrate (Lopressor) 50 mg BID PO Last administered on 08/20/16 08: 42; Admin Dose 50 MG; Start 08/19/16 at 09:00 Phenol (Cepastat Lozenge) 1 lozenge Q1H PRN MT SORE THROAT Last administered on 08/19/16 18:56; Admin Dose 1 LOZENGE; Start 08/19/16 at 16:30 Diagnostic Test (Pha) (Accu-Chek) 1 ea 02 XX ; Start 08/20/16 at 02:00 Nystatin 1 applic 1 applic BID TOP Last administered on 08/20/16 08:42; Admin Dose 1 APPLIC; Start 08/19/16 at 21:00 Dextrose/Sodium Chloride (D5-1/2ns) 1,000 ml @ 40 mls/hr Q24H IV Last administered on 08/20/16 14:53; Admin Dose 40 MLS/HR; Start 08/20/16 at 13:00 Digoxin (Digoxin) 125 mcg DAILY@13 IV ; Start 08/20/16 at 13:03 JUDAH NOE MD Aug 20, 2016 15:26
--- NOTE | 2016-08-20 16:37 | PN ---
Date/Time of Note Date/Time of Note DATE: 08/20/16 TIME: 16:35 Assessment/Plan VTE Prophylaxis VTE Prophylaxis Intervention: other Lines/Catheters IV Catheter Type [facility]from [facility]): Saline Lock Urinary Cath still in place: No Assessment/Plan Assessment/Plan - Dysphagia - failed swallow evaluation - npo - IVF- gentle hydration as patient is renal patient - ENT CONSULT- Dr Araiza notified - aspiration precautions -Acute respiratory insufficiency secondary to pneumonia and COPD exacerbation. - Right-sided pneumonia per CT scan, continue cefepime. - A-fib with RVR, continue Cardizem, patient is followed by Dr. Stuart in cardiology. - COPD exacerbation, continue breathing treatment. Dr. Natarajan is following in pulmonology consultation - End-stage renal disease stage V. Dr. Leon is following in nephrology consultation. Continue to hemodialysis via right femoral hemodialysis catheter. - Pulmonary edema. Continue diuresis. - per pulmonary -per CXR- Worse appearance of the lung bases and slightly larger bilateral pleural effusions.No other change from 08/14/2016. - Anemia of chronic kidney disease. Continue Epogen. - Diabetes mellitus type [address] Garcia is following an endocrinology consultation. Continue NPH. - Hypertension, continue Norvasc. -Left upper extremity AV fistula, non-matured -Status post right hemodialysis non-tunneled catheter placement by Dr. Manning on 08/03. S/p R IJ tunneled hemodialysis catheter placement. Further treatment depends upon patient's clnical course. Plan of care dw Dr Flores/staff Subjective 24 Hr Interval Summary Free Text/Dictation nad, c/o dysphagia, failed swallow evaluation, remains npo, on IVF- gentle hydration as patient is renal patient. ENT CONSULT- Dr Araiza notified, dw staff Constitutional: requiring IVF, requiring O2 Eyes: no complaints ENT: dysphagia Respiratory: shortness of breath Cardiovascular: no complaints Gastrointestinal: other (painful swallowing), pain Musculoskeletal: no complaints Skin: no complaints Neurologic: no complaints Exam/Review of Systems Vital Signs Vitals Vital Signs Date Time Temp Pulse Resp B/P Pulse Ox O2 Delivery O2 Flow Rate FiO2 08/20/16 16:04 80 08/20/16 15:40 93 40 08/20/16 15:24 97.6 21 124/58 08/20/16 08:57 Nasal Cannula 4.0 Intake and Output 08/19/16 08/19/16 08/20/16 15:00 23:00 07:00 Intake Total 300 ml 800 ml Output Total 2000 ml Balance -1700 ml 800 ml Exam Constitutional: alert Head: atraumatic ENMT: nl external ears & nose Respiratory: diminished breath sounds Cardiovascular: nl pulses Gastrointestinal: soft Musculoskeletal: nl extremities to inspection Skin: other Lymph: nontender Results Result Diagram: 08/19/16 1455 08/20/16 0650 Results 24 hrs Laboratory Tests Test 08/19/16 17:20 08/19/16 21:08 08/20/16 06:50 08/20/16 07:34 Bedside Glucose 198 70 66 L Sodium Level 134 L Potassium Level 3.6 Chloride Level 98 Carbon Dioxide Level 23 Anion Gap 17 H Blood Urea Nitrogen 28 #H Creatinine 2.72 #H Glucose Level 70 # Calcium Level 7.9 L Test 08/20/16 11:42 Bedside Glucose 99 Medications Medications Current Medications Atorvastatin Calcium (Lipitor) 40 mg HS PO Last administered on 08/19/16 21:17 ; Admin Dose 40 MG; Start 08/01/16 at 21:00 Calcitriol (Rocaltrol) 0.25 mcg DAILY PO Last administered on 08/20/16 08:40; Admin Dose 0.25 MCG; Start 08/01/16 at 09:00 Calcium/Vitamin D (Oyster Shell/ Vit-D (500/200)) 1 tab BID PO Last administered on 08/20/16 08:41; Admin Dose 1 TAB; Start 08/01/16 at 09:00 Hydralazine HCl (Apresoline) 50 mg Q8 PO Last administered on 08/20/16 06:01; Admin Dose 50 MG; Start 08/01/16 at 06:00 Paroxetine HCl (Paxil) 10 mg DAILY PO Last administered on 08/20/16 08:42; Admin Dose 10 MG; Start 08/01/16 at 09:00 Acetaminophen (Tylenol Tab) 650 mg Q4H PRN PO PAIN AND OR ELEVATED TEMP Last administered on 08/19/16 08:55; Admin Dose 650 MG; Start 08/01/16 at 00:30 Hydralazine HCl (Apresoline) 20 mg Q6H PRN IV ELEVATED BLOOD PRESSURE Last administered on 08/09/16 03:50; Admin Dose 20 MG; Start 08/01/16 at 00:30 Guaifenesin/ Dextromethorphan (Robitussin Dm Liquid Cup) 10 ml Q4H PRN PO COUGH Last administered on 08/10/16 09:37; Admin Dose 10 ML; Start 08/01/16 at 00:30 Epoetin [place]aden (Epogen (Esrd)) 6,000 units MoWeFr@17 SC Last administered on 08/18 17:09; Admin Dose 6,000 UNITS; Start 08/02/16 at 17:00 Linagliptin (Tradjenta) 5 mg DAILY PO Last administered on 08/20/16 08:42; Admin Dose 5 MG; Start 08/04/16 at 20:00 Salmeterol Xinafoate/ Fluticasone (Advair 250/50 Diskus) 1 inh BID INH Last administered on 08/20/16 08:40; Admin Dose 1 INH; Start 08/08/16 at 11:00 Montelukast Sodium (Singulair) 10 mg HS PO Last administered on 08/19/16 21:17 ; Admin Dose 10 MG; Start 08/08/16 at 21:00 Tiotropium [place] (Spiriva) 1 inh DAILY INH Last administered on 08/19/16 08: 58; Admin Dose 1 INH; Start 08/08/16 at 11:00 Miscellaneous Information 1 ea NOTE XX ; Start 08/13/16 at 17:30 Glucose (Glutose) 15 gm Q15M PRN PO DECREASED GLUCOSE; Start 08/13/16 at 17:30 Glucose (Glutose) 22.5 gm Q15M PRN PO DECREASED GLUCOSE; Start 08/13/16 at 17:30 Dextrose (D50w Syringe) 25 ml Q15M PRN IV DECREASED GLUCOSE; Start 08/13/16 at 17:30 Dextrose (D50w Syringe) 50 ml Q15M PRN IV DECREASED GLUCOSE; Start 08/13/16 at 17:30 Glucagon (Glucagen) 1 mg Q15M PRN IM DECREASED GLUCOSE; Start 08/13/16 at 17:30 Glucose 15 gm 15 gm Q15M PRN BUCCAL DECREASED GLUCOSE; Start 08/13/16 at 17:30 Vancomycin HCl (Vancocin) 250 ml @ 125 mls/hr Q96H IVPB Last administered on 10:27; Admin Dose 125 MLS/HR; Start 08/16/16 at 10:00 Apixaban (Eliquis) 5 mg BID PO Last administered on 08/20/16 08:41; Admin Dose 5 MG; Start 08/17/16 at 21:00 Amikacin Sulfate (Amikacin Iv Per Pharmacy) AMIKACIN PER PHARMACY NOTE XX ; Start 08/18/16 at 16:30 Metoprolol Tartrate (Lopressor) 50 mg BID PO Last administered on 08/20/16 08: 42; Admin Dose 50 MG; Start 08/19/16 at 09:00 Phenol (Cepastat Lozenge) 1 lozenge Q1H PRN MT SORE THROAT Last administered on 08/19/16 18:56; Admin Dose 1 LOZENGE; Start 08/19/16 at 16:30 Diagnostic Test (Pha) (Accu-Chek) 1 ea 02 XX ; Start 08/20/16 at 02:00 Nystatin 1 applic 1 applic BID TOP Last administered on 08/20/16 08:42; Admin Dose 1 APPLIC; Start 08/19/16 at 21:00 Dextrose/Sodium Chloride (D5-1/2ns) 1,000 ml @ 40 mls/hr Q24H IV Last administered on 08/20/16 14:53; Admin Dose 40 MLS/HR; Start 08/20/16 at 13:00 Digoxin (Digoxin) 125 mcg DAILY@13 IV ; Start 08/20/16 at 13:03 LALA ORO Aug 20, 2016 16:37
--- NOTE | 2016-08-20 16:37 | PN ---
DATE: 08/20/2016 SUBJECTIVE: The patient is on BiPAP. She is in no distress, no fevers. No labs this morning. Chest x-ray from yesterday revealed increased pleural effusion, right worse than left. ANTIMICROBIALS: The patient is on: 1. Amikacin. 2. Vancomycin. PHYSICAL EXAMINATION: GENERAL: This is a fragile, chronically ill-appearing, elderly woman who is in no distress. HEENT: Head atraumatic, normocephalic. Sclerae anicteric. Buccal mucosa dry. NECK: Supple, trachea midline. CHEST: Rise symmetrical. Breath sounds diminished to bases. HEART: S1, S2. ABDOMEN: Soft. Bowel tones present. EXTREMITIES: No cyanosis. ASSESSMENT: 1. Acute respiratory failure. 2. Pneumonia with pleural effusion status post thoracentesis previously. 3. End-stage renal disease, hemodialysis dependent. 4. Status post bacteremia. 5. Diabetes. 6. History of pancreatic stent placement. PLAN: The patient remains clinically stable. Pulmonary team on case, pending another thoracentesis . Continue present care, antibiotics. Dictated By: NAHUN DOWNEY [employer] for [employer] Conf#: [id number] DID#: [id number]
[2016-08-20] MEDS ORDERED: LIDOCAINE 1% (MPF) 5 ML VIAL ONE (17:21)
--- NOTE | 2016-08-20 17:35 | RADRPT ---
PROCEDURE: US guided right thoracentesis. CLINICAL INDICATION: Shortness of breath. Right pleural effusion. TECHNIQUE: Prior to the procedure, informed consent was obtained. The risks, benefits, and alternatives were e xplained to the patient or the patient's family, including but not limited to bleeding, infection, p ain, visceral or vascular damage, shock, pneumothorax, chest tube placement, air embolism, and . The patient or the patient's family understood the risks and the alternatives and wished to proce ed with the study. Informed written consent was obtained. A procedural pause was performed. The patient's name, date of , and procedure to be performed were verified. Ultrasound of the right hemithorax was performed in the axial and sagittal planes. A right pleural e ffusion is noted. Utilizing ultrasound guidance, optimal location for entry to the pleural cavity wa s ascertained. The overlying skin was prepped and draped in the usual sterile fashion. Approximate ly 10 ml of 1% Xylocaine was injected locally for pain control. Using ultrasound guidance, a 5-Fren Yueh catheter was introduced into the right pleural space without difficulty. Fluid was aspirated . COMPARISON: 08/14/2016 FINDINGS: Initial ultrasound demonstrates fluid in the right pleural space. Approximately 0.630 liters of ser ous fluid was aspirated and discarded. IMPRESSION: 1. Satisfactory ultrasound-guided right thoracentesis. RPTAT: QQ .Salazar Cruz MD, Date Time Electronically viewed and signed by .Salazar Cruz MD, on 08/20/2016 17:34 .R/
--- NOTE | 2016-08-20 17:41 | RADRPT ---
PROCEDURE: XR Chest. CLINICAL INDICATION: Shortness of breath. Post right thoracentesis. TECHNIQUE: Single frontal view. COMPARISON: 08/19/2016. FINDINGS: Previously noted right pleural effusion is now much smaller. There is a small right pleural effusio n and mild right basilar atelectasis. A moderate left pleural effusion and left basilar atelectasis are unchanged. The tunneled right internal jugular vein dialysis catheter remains in satisfactory position. The heart is enlarged. There is calcification in the aorta consistent with atherosclerosis. There is no pneumothorax. There are chronic changes of both shoulders. Surgical clips are present in the right upper quadrant of the abdomen. IMPRESSION: 1. No pneumothorax following right thoracentesis. 2. Marked improvement in the appearance of the right lung and much smaller right pleural effusion. RPTAT: QQ .Salazar Cruz MD, MD Date Time Electronically viewed and signed by .Salazar Cruz MD, MD on 08/20/2016 17:41 .R/
[2016-08-20] MEDS: EPOETIN 3000 UNITS/1 ML INJ (ESRD) SC SCH (18:23)
[2016-08-20] MEDS: MONTELUKAST 10 MG TAB PO SCH (20:47)
[2016-08-20] MEDS: ATORVASTATIN 40 MG TAB PO SCH (20:47)
[2016-08-20] MEDS: GUAIFENESIN/DM 5ML CUP PO PRN (21:07)
[2016-08-21] VITALS (19 sets, daily range): BP systolic 84–167; BP diastolic 35–79; PULSE 77–167; RESP 16–22
[2016-08-21] MEDS: ALBUTEROL/IPRATROPIUM (NEB) 3 ML AMP HHN SCH ×4 (01:31→19:13)
[2016-08-21] MEDS: ACCUCHECK AT 2AM (Patients on SS coverage) XX SCH (02:00)
[2016-08-21] MEDS: FUROSEMIDE 40 MG INJ IV SCH ×2 (06:00→17:35)
[2016-08-21 07:05] LABS: ADD SCAN DIFF NO
[2016-08-21 07:09] LABS: ABNORMAL IP MESSAGE 1; BASOPHILS % 0.1 % (0.0-2.0); HEMATOCRIT 29.4 % (37.0-47.0); LYMPHOCYTES # 0.3 10^3/ul (0.8-2.9); MEAN CORPUSCULAR HEMOGLOBIN 29.2 pg (29.0-33.0); MEAN CORPUSCULAR HGB CONC 30.6 g/dl (32.0-37.0); MEAN CORPUSCULAR VOLUME 95.5 fl (82.0-101.0); MEAN PLATELET VOLUME 11.1 fl (7.4-10.4); MONOCYTE # 0.4 10^3/ul (0.3-0.9); MONOCYTES % 2.8 % (0.0-11.0); NEUTROPHIL # 13.4 10^3/ul (1.6-7.5); NEUTROPHILS % 94.5 % (39.0-77.0); NUCLEATED RED BLOOD CELLS% 0.1 /100WBC (0.0-0.0); PLATELET COUNT 166 10^3/UL (140-415); RED BLOOD COUNT 3.08 10^6/ul (4.20-5.40); WHITE BLOOD COUNT 14.1 10^3/ul (4.8-10.8)
[2016-08-21] MEDS: CALCIUM ACETATE 667 MG CAP PO SCH ×3 (07:55→17:36)
[2016-08-21 07:56] LABS: POTASSIUM 3.5 mmol/L (3.5-5.1)
[2016-08-21 07:59] LABS: CREATININE 4.39 mg/dl (0.44-1.00)
[2016-08-21 08:00] LABS: CALCIUM 7.7 mg/dl (8.4-10.2)
[2016-08-21] MEDS: TIOTROPIUM 18 MCG CAPSULE INHA DEV INH SCH (09:00)
[2016-08-21] MEDS: METOPROLOL 25 MG TAB PO SCH ×2 (09:00→21:00)
[2016-08-21] MEDS: CLOTRIMAZOLE 10 MG TROCHE MT SCH ×5 (09:00→21:00)
[2016-08-21] MEDS: APIXABAN 5 MG TABLET PO SCH ×2 (09:00→21:00)
[2016-08-21] MEDS: PAROXETINE 10 MG TAB PO SCH (09:00)
[2016-08-21] MEDS: LINAGLIPTIN 5 MG TABLET PO SCH (09:00)
[2016-08-21] MEDS: CALCIUM/VITAMIN D (500/200) TAB PO SCH ×2 (09:00→21:00)
[2016-08-21] MEDS: CALCITRIOL 0.25 MCG CAP PO SCH (09:00)
[2016-08-21] MEDS: SALMETEROL/FLUTICASONE 250/50 INHA INH SCH ×2 (09:09→21:00)
[2016-08-21] MEDS: Insulin NOVOLOG SS MILD Algorithm (SS with meals and bedtime) SC SCH ×4 (09:11→21:00)
[2016-08-21] MEDS: NYSTATIN 30 GM POWDER BTL TOP SCH ×2 (09:18→22:04)
--- NOTE | 2016-08-21 09:50 | CONS ---
DATE OF ADMISSION: 07/31/2016 DATE OF CONSULTATION: 08/21/2016 REFERRING PHYSICIAN: Dr. Flores TYPE OF CONSULTATION: Head and neck surgery. HISTORY OF PRESENT ILLNESS: The patient is an 85-year-old female with a history of end-stage renal disease, fluid overload, pulmonary edema, chronic disease anemia, diabetes mellitus, diabetic nephro diana, AV fistula left upper extremity, pneumonia, status post thoracentesis, with respiratory failu re, requiring intubation. She was just extubated and now has developed oropharyngeal discomfort, ho arseness and dysphagia. Since the extubation she has noted dysphagia and hoarseness. Consultation i s obtained. PAST MEDICAL HISTORY: As noted above. PAST SURGICAL HISTORY: As noted. MEDICATIONS: On chart. ALLERGIES: On chart. REVIEW OF SYSTEMS: As noted in the HPI. PHYSICAL EXAMINATION: GENERAL: Well-developed, well-nourished male, in no acute distress. VITAL SIGNS: Temperature is 98, pulse 97, blood pressure 107/53. HEENT: Head atraumatic, normocephalic. ENT: Tympanic membranes are clear. Anterior oropharynx clear, other than dried blood within the or opharynx. NECK: Supple, full range of motion. LYMPH: No cervical lymphadenopathy. EXTREMITIES: No clubbing, cyanosis, or edema. NEUROLOGIC: Cranial nerves II through XII are grossly intact. EYES: Pupils are equal, round, and reactive to light and accommodation. Extraocular muscles intact . Flexible fiberoptic laryngoscopy demonstrates significant dried blood and post-extubation trauma, al fransisca with ulcerations, consistent with oropharyngeal candidiasis. ASSESSMENT: Respiratory failure, dysphagia and hoarseness, status post extubation, with oropharyngea l candidiasis. RECOMMENDATIONS: 1. Conservative measures. 2. Magic Mouthwash with nystatin gargles, Diflucan. 3. Continue with oral hygiene and diet as tolerated. 4. Reconsult if any additional questions. Dictated By: CLINTON ARDON/SYED Conf#: [id number] DID#: [id number]
--- NOTE | 2016-08-21 10:26 | CONS ---
Date/Time of Note Date/Time of Note DATE: 08/21/16 TIME: 10:24 Assessment/Plan Assessment/Plan Problems: (1) Type 2 diabetes mellitus with diabetic chronic kidney disease Status: Chronic Comment: Glucose levels stable. Normalized after mild hypoglycemic episode yesterday. Cont. linagliptin daily. 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 not on chronic dialysis, with long-term current use of insulin Consultation Date/Type/Reason Admit Date/Time Jul 31, 2016 at 19:59 Initial Consult Date 08/06/16 Type of Consultation: Endocrinology Reason for Consultation T2DM Referring Provider: LALA ORO 24 HR Interval Summary Subjective hx not possible: pt non-verbal (sleeping) Constitutional: requiring O2 Exam/Review of Systems Vital Signs Vitals VS - Last 72 Hours, by Label Date Time Temp Pulse Resp B/P Pulse Ox O2 Delivery O2 Flow Rate FiO2 08/21/16 08:49 77 22 95 Venti Mask 15.0 50 08/21/16 08:11 90 08/21/16 07:39 98.9 85 22 117/46 92 08/21/16 04:10 101 08/21/16 04:02 97.6 90 18 104/48 93 08/21/16 01:31 79 21 Venti Mask 15.0 50 08/21/16 01:31 15.0 08/21/16 00:23 97.0 94 16 84/35 95 08/21/16 00:18 96 08/20/16 23:06 81 94 40 08/20/16 20:20 98.6 75 16 120/44 92 08/20/16 20:14 80 08/20/16 19:59 75 21 95 Venti Mask 15.0 50 08/20/16 19:59 95 15.0 08/20/16 16:43 15.0 08/20/16 16:04 80 08/20/16 15:40 80 93 40 08/20/16 15:24 97.6 81 21 124/58 95 08/20/16 14:04 77 21 94 08/20/16 13:30 77 94 40 08/20/16 12:04 103 08/20/16 12:00 97.6 82 19 119/58 93 08/20/16 11:30 84 93 40 08/20/16 09:15 75 95 40 08/20/16 08:57 75 24 91 Nasal Cannula 4.0 08/20/16 08:14 101 08/20/16 07:36 97.9 56 19 122/42 94 08/20/16 04:06 97.4 75 18 137/63 92 08/20/16 04:03 80 08/20/16 02:05 92 5.0 08/20/16 01:43 69 22 89 Nasal Cannula 4.0 08/20/16 00:02 70 08/20/16 00:00 97.9 73 21 138/63 92 08/19/16 23:39 3.0 08/19/16 22:30 74 96 40 08/19/16 20:25 73 93 40 08/19/16 20:07 98.3 62 18 135/61 91 08/19/16 20:04 77 22 93 Nasal Cannula 4.0 08/19/16 20:03 90 08/19/16 16:37 97 08/19/16 15:57 98.3 75 18 107/53 98 08/19/16 15:11 100 22 96 Nasal Cannula 3.0 32 08/19/16 12:15 75 18 08/19/16 12:15 75 08/19/16 12:05 97.6 102 18 107/61 95 08/19/16 11:45 78 08/19/16 11:15 107 08/19/16 10:45 107 08/19/16 10:15 107 08/19/16 09:45 102 08/19/16 09:15 101 18 08/19/16 08:06 140 08/19/16 08:01 138 18 97 Venti Mask 35 08/19/16 07:57 98.6 91 20 137/70 97 08/19/16 04:27 139 08/19/16 04:10 93 9.0 35 08/19/16 03:59 98.3 71 20 126/66 96 08/19/16 02:33 3.0 08/19/16 02:32 96 18 92 Nasal Cannula 3.0 08/19/16 01:05 100 08/19/16 00:04 98.3 75 20 143/77 97 08/18/16 20:31 99 08/18/16 20:30 Nasal Cannula 3.0 08/18/16 20:15 98.8 106 20 148/65 96 08/18/16 20:07 3.0 08/18/16 20:02 92 20 93 Nasal Cannula 3.0 08/18/16 16:40 98.5 76 18 121/59 98 08/18/16 16:26 97 08/18/16 13:34 3.0 08/18/16 13:34 110 20 93 3.0 08/18/16 12:22 99.2 84 20 102/59 99 08/18/16 12:08 117 08/18/16 10:43 Nasal Cannula 3.0 Vital Signs Date Time Temp Pulse Resp B/P Pulse Ox O2 Delivery O2 Flow Rate FiO2 08/21/16 08:49 77 22 95 Venti Mask 15.0 50 08/21/16 07:39 98.9 117/46 Intake and Output 08/20/16 08/20/16 08/21/16 14:59 22:59 06:59 Intake Total 50 ml Balance 50 ml Exam Constitutional: frail, obese, No alert (sleeping) Respiratory: clear to auscultation, labored breathing, normal air movement Cardiovascular: nl pulses, regular rate and rhythm, No edema, No murmurs/extra sounds, No rub Gastrointestinal: bowel sounds, nl liver, spleen, non-tender, soft, No mass, No rebound or guarding Musculoskeletal: nl extremities to inspection Extremities: normal pulses, No clubbing, No cyanosis, No edema 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: lethargic (sleeping) Additional Comments Bedside Glucose - 72 Hours Test 08/18/16 12:43 08/18/16 17:11 08/18/16 20:25 08/19/16 01:27 Bedside Glucose 136mg/dL (70-220) 134mg/dL (70-220) 197mg/dL (70-220) 161mg/dL (70-220) Test 08/19/16 02:02 08/19/16 04:36 08/19/16 08:45 08/19/16 11:59 Bedside Glucose 196mg/dL (70-220) 134mg/dL (70-220) 148mg/dL (70-220) 140mg/dL (70-220) Test 08/19/16 17:20 08/19/16 21:08 08/20/16 07:34 08/20/16 11:42 Bedside Glucose 198mg/dL (70-220) 70mg/dL (70-220) 66mg/dL (70-220) L 99mg/dL (70-220) Test 08/20/16 18:17 08/20/16 20:43 08/21/16 02:15 08/21/16 07:28 Bedside Glucose 70mg/dL (70-220) 95mg/dL (70-220) 129mg/dL (70-220) 154mg/dL (70-220) Results Result Diagram: 08/21/16 0555 08/21/16 0555 Results 24 hrs Laboratory Tests Test 08/20/16 11:42 08/20/16 18:17 08/20/16 20:43 08/21/16 02:15 Bedside Glucose 99 70 95 129 Test 08/21/16 05:55 08/21/16 07:28 White Blood Count 14.1 H Red Blood Count 3.08 L Hemoglobin 9.0 L Hematocrit 29.4 L Mean Corpuscular Volume 95.5 Mean Corpuscular Hemoglobin 29.2 Mean Corpuscular Hemoglobin Concent 30.6 L Red Cell Distribution Width 15.0 H Platelet Count 166 Mean Platelet Volume 11.1 H Neutrophils % 94.5 H Lymphocytes % 2.0 L Monocytes % 2.8 Eosinophils % 0.0 Basophils % 0.1 Nucleated Red Blood Cells % 0.1 H Neutrophils # 13.4 H Lymphocytes # 0.3 L Monocytes # 0.4 Eosinophils # 0.0 Basophils # 0.0 Nucleated Red Blood Cells # 0.0 Sodium Level 138 Potassium Level 3.5 Chloride Level 100 Carbon Dioxide Level 25 Anion Gap 17 H Blood Urea Nitrogen 40 #H Creatinine 4.39 #H Glucose Level 128 # Calcium Level 7.7 L Bedside Glucose 154 Medications Medications Current Medications Atorvastatin Calcium (Lipitor) 40 mg HS PO Last administered on 08/20/16 20:47 ; Admin Dose 40 MG; Start 08/01/16 at 21:00 Calcitriol (Rocaltrol) 0.25 mcg DAILY PO Last administered on 08/20/16 08:40; Admin Dose 0.25 MCG; Start 08/01/16 at 09:00 Calcium/Vitamin D (Oyster Shell/ Vit-D (500/200)) 1 tab BID PO Last administered on 08/20/16 20:47; Admin Dose 1 TAB; Start 08/01/16 at 09:00 Hydralazine HCl (Apresoline) 50 mg Q8 PO Last administered on 08/20/16 06:01; Admin Dose 50 MG; Start 08/01/16 at 06:00 Paroxetine HCl (Paxil) 10 mg DAILY PO Last administered on 08/20/16 08:42; Admin Dose 10 MG; Start 08/01/16 at 09:00 Acetaminophen (Tylenol Tab) 650 mg Q4H PRN PO PAIN AND OR ELEVATED TEMP Last administered on 08/19/16 08:55; Admin Dose 650 MG; Start 08/01/16 at 00:30 Hydralazine HCl (Apresoline) 20 mg Q6H PRN IV ELEVATED BLOOD PRESSURE Last administered on 08/09/16 03:50; Admin Dose 20 MG; Start 08/01/16 at 00:30 Guaifenesin/ Dextromethorphan (Robitussin Dm Liquid Cup) 10 ml Q4H PRN PO COUGH Last administered on 08/20/16 21:07; Admin Dose 10 ML; Start 08/01/16 at 00:30 Epoetin Braden (Epogen (Esrd)) 6,000 units MoWeFr@17 SC Last administered on 08/20 18:23; Admin Dose 6,000 UNITS; Start 08/02/16 at 17:00 Linagliptin (Tradjenta) 5 mg DAILY PO Last administered on 08/20/16 08:42; Admin Dose 5 MG; Start 08/04/16 at 20:00 Salmeterol Xinafoate/ Fluticasone (Advair 250/50 Diskus) 1 inh BID INH Last administered on 08/21/16 09:09; Admin Dose 1 INH; Start 08/08/16 at 11:00 Montelukast Sodium (Singulair) 10 mg HS PO Last administered on 08/20/16 20:47 ; Admin Dose 10 MG; Start 08/08/16 at 21:00 Tiotropium [place] (Spiriva) 1 inh DAILY INH Last administered on 08/19/16 08: 58; Admin Dose 1 INH; Start 08/08/16 at 11:00 Miscellaneous Information 1 ea NOTE XX ; Start 08/13/16 at 17:30 Glucose (Glutose) 15 gm Q15M PRN PO DECREASED GLUCOSE; Start 08/13/16 at 17:30 Glucose (Glutose) 22.5 gm Q15M PRN PO DECREASED GLUCOSE; Start 08/13/16 at 17:30 Dextrose (D50w Syringe) 25 ml Q15M PRN IV DECREASED GLUCOSE; Start 08/13/16 at 17:30 Dextrose (D50w Syringe) 50 ml Q15M PRN IV DECREASED GLUCOSE; Start 08/13/16 at 17:30 Glucagon (Glucagen) 1 mg Q15M PRN IM DECREASED GLUCOSE; Start 08/13/16 at 17:30 Glucose 15 gm 15 gm Q15M PRN BUCCAL DECREASED GLUCOSE; Start 08/13/16 at 17:30 Vancomycin HCl (Vancocin) 250 ml @ 125 mls/hr Q96H IVPB Last administered on 10:27; Admin Dose 125 MLS/HR; Start 08/16/16 at 10:00 Apixaban (Eliquis) 5 mg BID PO Last administered on 08/20/16 20:47; Admin Dose 5 MG; Start 08/17/16 at 21:00 Amikacin Sulfate (Amikacin Iv Per Pharmacy) AMIKACIN PER PHARMACY NOTE XX ; Start 08/18/16 at 16:30 Metoprolol Tartrate (Lopressor) 50 mg BID PO Last administered on 08/20/16 20: 49; Admin Dose 50 MG; Start 08/19/16 at 09:00 Phenol (Cepastat Lozenge) 1 lozenge Q1H PRN MT SORE THROAT Last administered on 08/19/16 18:56; Admin Dose 1 LOZENGE; Start 08/19/16 at 16:30 Diagnostic Test (Pha) (Accu-Chek) 1 ea 02 XX Last administered on 08/21/16 02: 00; Admin Dose 1 EA; Start 08/20/16 at 02:00 Nystatin 1 applic 1 applic BID TOP Last administered on 08/21/16 09:18; Admin Dose 1 APPLIC; Start 08/19/16 at 21:00 Dextrose/Sodium Chloride (D5-1/2ns) 1,000 ml @ 40 mls/hr Q24H IV Last administered on 08/20/16 14:53; Admin Dose 40 MLS/HR; Start 08/20/16 at 13:00 Digoxin (Digoxin) 125 mcg DAILY@13 IV ; Start 08/20/16 at 13:03 Diltiazem HCl (Cardizem Iv) 10 mg Q4 PRN IV HR>120; Start 08/20/16 at 18:30 JUDAH NOE MD Aug 21, 2016 10:26
--- NOTE | 2016-08-21 10:57 | CONS ---
Date/Time of Note Date/Time of Note DATE: 08/21/16 TIME: 10:54 Assessment/Plan Assessment/Plan Additional Assessment/Plan Assessment recommendations; next 1. Patient admitted for acute renal failure as well as pneumonia and pleural effusion status post thoracentesis x 2 on the right side. 2. Acute renal failure, on hemodialysis. 3. Atrial fibrillation 4. Hypertension and diabetes. Continue current treatment. Consultation Date/Type/Reason Admit Date/Time Jul 31, 2016 at 19:59 Initial Consult Date 08/06/16 Type of Consultation: Pulmonary Referring Provider: LALA ORO 24 HR Interval Summary Free Text/Dictation Patient condition is stable. She underwent right thoracentesis yesterday 0.6 L of fluid was removed. Currently patient getting hemodialysis at bedside. General exam; elderly lady awake alert currently in no distress. Off BiPAP now. Exam/Review of Systems Vital Signs Vitals Vital Signs Date Time Temp Pulse Resp B/P Pulse Ox O2 Delivery O2 Flow Rate FiO2 08/21/16 08:49 77 22 95 Venti Mask 15.0 50 08/21/16 07:39 98.9 117/46 Intake and Output 08/20/16 08/20/16 08/21/16 15:00 23:00 07:00 Intake Total 50 ml Balance 50 ml Exam HEENT exam is; supple neck, positive JVD. No lymphadenopathy. Midline trachea. No thyromegaly. Pupils are small bilaterally. No neck masses. Chest examined; diminished but clear breath sounds. S1-S2 audible, irregular rhythm. No murmurs. Abdomen examination; soft, nondistended. No organomegaly. Bowel sounds audible. Extremity exam; no peripheral edema. Patient has a multiple ecchymosis involving all 4 extremities. 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 Results Result Diagram: 08/21/16 0555 08/21/16 0555 Results 24 hrs Laboratory Tests Test 08/20/16 11:42 08/20/16 18:17 08/20/16 20:43 08/21/16 02:15 Bedside Glucose 99 70 95 129 Test 08/21/16 05:55 08/21/16 07:28 White Blood Count 14.1 H Red Blood Count 3.08 L Hemoglobin 9.0 L Hematocrit 29.4 L Mean Corpuscular Volume 95.5 Mean Corpuscular Hemoglobin 29.2 Mean Corpuscular Hemoglobin Concent 30.6 L Red Cell Distribution Width 15.0 H Platelet Count 166 Mean Platelet Volume 11.1 H Neutrophils % 94.5 H Lymphocytes % 2.0 L Monocytes % 2.8 Eosinophils % 0.0 Basophils % 0.1 Nucleated Red Blood Cells % 0.1 H Neutrophils # 13.4 H Lymphocytes # 0.3 L Monocytes # 0.4 Eosinophils # 0.0 Basophils # 0.0 Nucleated Red Blood Cells # 0.0 Sodium Level 138 Potassium Level 3.5 Chloride Level 100 Carbon Dioxide Level 25 Anion Gap 17 H Blood Urea Nitrogen 40 #H Creatinine 4.39 #H Glucose Level 128 # Calcium Level 7.7 L Bedside Glucose 154 Medications Medications Current Medications Atorvastatin Calcium (Lipitor) 40 mg HS PO Last administered on 08/20/16 20:47 ; Admin Dose 40 MG; Start 08/01/16 at 21:00 Calcitriol (Rocaltrol) 0.25 mcg DAILY PO Last administered on 08/20/16 08:40; Admin Dose 0.25 MCG; Start 08/01/16 at 09:00 Calcium/Vitamin D (Oyster Shell/ Vit-D (500/200)) 1 tab BID PO Last administered on 08/20/16 20:47; Admin Dose 1 TAB; Start 08/01/16 at 09:00 Hydralazine HCl (Apresoline) 50 mg Q8 PO Last administered on 08/20/16 06:01; Admin Dose 50 MG; Start 08/01/16 at 06:00 Paroxetine HCl (Paxil) 10 mg DAILY PO Last administered on 08/20/16 08:42; Admin Dose 10 MG; Start 08/01/16 at 09:00 Acetaminophen (Tylenol Tab) 650 mg Q4H PRN PO PAIN AND OR ELEVATED TEMP Last administered on 08/19/16 08:55; Admin Dose 650 MG; Start 08/01/16 at 00:30 Hydralazine HCl (Apresoline) 20 mg Q6H PRN IV ELEVATED BLOOD PRESSURE Last administered on 08/09/16 03:50; Admin Dose 20 MG; Start 08/01/16 at 00:30 Guaifenesin/ Dextromethorphan (Robitussin Dm Liquid Cup) 10 ml Q4H PRN PO COUGH Last administered on 08/20/16 21:07; Admin Dose 10 ML; Start 08/01/16 at 00:30 Epoetin Braden (Epogen (Esrd)) 6,000 units MoWeFr@17 SC Last administered on 08/20 18:23; Admin Dose 6,000 UNITS; Start 08/02/16 at 17:00 Linagliptin (Tradjenta) 5 mg DAILY PO Last administered on 08/20/16 08:42; Admin Dose 5 MG; Start 08/04/16 at 20:00 Salmeterol Xinafoate/ Fluticasone (Advair 250/50 Diskus) 1 inh BID INH Last administered on 08/21/16 09:09; Admin Dose 1 INH; Start 08/08/16 at 11:00 Montelukast Sodium (Singulair) 10 mg HS PO Last administered on 08/20/16 20:47 ; Admin Dose 10 MG; Start 08/08/16 at 21:00 Tiotropium [place] (Spiriva) 1 inh DAILY INH Last administered on 08/19/16 08: 58; Admin Dose 1 INH; Start 08/08/16 at 11:00 Miscellaneous Information 1 ea NOTE XX ; Start 08/13/16 at 17:30 Glucose (Glutose) 15 gm Q15M PRN PO DECREASED GLUCOSE; Start 08/13/16 at 17:30 Glucose (Glutose) 22.5 gm Q15M PRN PO DECREASED GLUCOSE; Start 08/13/16 at 17:30 Dextrose (D50w Syringe) 25 ml Q15M PRN IV DECREASED GLUCOSE; Start 08/13/16 at 17:30 Dextrose (D50w Syringe) 50 ml Q15M PRN IV DECREASED GLUCOSE; Start 08/13/16 at 17:30 Glucagon (Glucagen) 1 mg Q15M PRN IM DECREASED GLUCOSE; Start 08/13/16 at 17:30 Glucose 15 gm 15 gm Q15M PRN BUCCAL DECREASED GLUCOSE; Start 08/13/16 at 17:30 Vancomycin HCl (Vancocin) 250 ml @ 125 mls/hr Q96H IVPB Last administered on 10:27; Admin Dose 125 MLS/HR; Start 08/16/16 at 10:00 Apixaban (Eliquis) 5 mg BID PO Last administered on 08/20/16 20:47; Admin Dose 5 MG; Start 08/17/16 at 21:00 Amikacin Sulfate (Amikacin Iv Per Pharmacy) AMIKACIN PER PHARMACY NOTE XX ; Start 08/18/16 at 16:30 Metoprolol Tartrate (Lopressor) 50 mg BID PO Last administered on 08/20/16 20: 49; Admin Dose 50 MG; Start 08/19/16 at 09:00 Phenol (Cepastat Lozenge) 1 lozenge Q1H PRN MT SORE THROAT Last administered on 08/19/16 18:56; Admin Dose 1 LOZENGE; Start 08/19/16 at 16:30 Diagnostic Test (Pha) (Accu-Chek) 1 ea 02 XX Last administered on 08/21/16 02: 00; Admin Dose 1 EA; Start 08/20/16 at 02:00 Nystatin 1 applic 1 applic BID TOP Last administered on 08/21/16 09:18; Admin Dose 1 APPLIC; Start 08/19/16 at 21:00 Dextrose/Sodium Chloride (D5-1/2ns) 1,000 ml @ 40 mls/hr Q24H IV Last administered on 08/20/16 14:53; Admin Dose 40 MLS/HR; Start 08/20/16 at 13:00 Digoxin (Digoxin) 125 mcg DAILY@13 IV ; Start 08/20/16 at 13:03 Diltiazem HCl (Cardizem Iv) 10 mg Q4 PRN IV HR>120; Start 08/20/16 at 18:30 KOFI HUERTA Aug 21, 2016 10:57
--- NOTE | 2016-08-21 11:17 | PN ---
Date/Time of Note Date/Time of Note DATE: 08/21/16 TIME: 11:16 Assessment/Plan VTE Prophylaxis VTE Prophylaxis Intervention: other Lines/Catheters IV C[facility]ter Type [facility]from [facility] Lock Urinary Cath still in place: No Assessment/Plan Chief Complaint/Hosp Course - Dysphagia - failed swallow evaluation - npo - IVF- gentle hydration as patient is renal patient - ENT CONSULT- Dr Araiza notified - aspiration precautions - Acute respiratory insufficiency secondary to pneumonia and COPD exacerbation. - Right-sided pneumonia per CT scan, continue cefepime. - A-fib with RVR, continue Cardizem, patient is followed by Dr. Stuart in cardiology. - COPD exacerbation, continue breathing treatment. Dr. Natarajan is following in pulmonology consultation - End-stage renal disease stage V. Dr. Leon is following in nephrology consultation. Continue to hemodialysis via right femoral hemodialysis catheter. - Pulmonary edema. Continue diuresis. - per pulmonary - per CXR- Worse appearance of the lung bases and slightly larger bilateral pleural effusions.No other change from 08/14/2016. - Anemia of chronic kidney disease. Continue Epogen. - Diabetes mellitus type [address] Garcia is following an endocrinology consultation. Continue NPH. - Hypertension, continue Norvasc. - Left upper extremity AV fistula, non-matured - Status post right hemodialysis non-tunneled catheter placement by Dr. Manning on 08/03. S/p R IJ tunneled hemodialysis catheter placement. Problems: Subjective 24 Hr Interval Summary Free Text/Dictation Patient having hemodialysis but is now tachycardic with uncontrolled atrial fibrillation Exam/Review of Systems Vital Signs Vitals Vital Signs Date Time Temp Pulse Resp B/P Pulse Ox O2 Delivery O2 Flow Rate FiO2 08/21/16 11:15 Venti Mask 15.0 08/21/16 11:14 98.6 95 22 167/69 92 08/21/16 08:49 50 Intake and Output 08/20/16 08/20/16 08/21/16 15:00 23:00 07:00 Intake Total 50 ml Balance 50 ml Exam Constitutional: well developed Head: atraumatic, normocephalic Neck: supple Respiratory: diminished breath sounds Cardiovascular: regular rate and rhythm Gastrointestinal: non-tender, soft Extremities: normal pulses Results Result Diagram: 08/21/16 0555 08/21/16 0555 Results 24 hrs Laboratory Tests Test 08/20/16 11:42 08/20/16 18:17 08/20/16 20:43 08/21/16 02:15 Bedside Glucose 99 70 95 129 Test 08/21/16 05:55 08/21/16 07:28 White Blood Count 14.1 H Red Blood Count 3.08 L Hemoglobin 9.0 L Hematocrit 29.4 L Mean Corpuscular Volume 95.5 Mean Corpuscular Hemoglobin 29.2 Mean Corpuscular Hemoglobin Concent 30.6 L Red Cell Distribution Width 15.0 H Platelet Count 166 Mean Platelet Volume 11.1 H Neutrophils % 94.5 H Lymphocytes % 2.0 L Monocytes % 2.8 Eosinophils % 0.0 Basophils % 0.1 Nucleated Red Blood Cells % 0.1 H Neutrophils # 13.4 H Lymphocytes # 0.3 L Monocytes # 0.4 Eosinophils # 0.0 Basophils # 0.0 Nucleated Red Blood Cells # 0.0 Sodium Level 138 Potassium Level 3.5 Chloride Level 100 Carbon Dioxide Level 25 Anion Gap 17 H Blood Urea Nitrogen 40 #H Creatinine 4.39 #H Glucose Level 128 # Calcium Level 7.7 L Bedside Glucose 154 Medications Medications Current Medications Atorvastatin Calcium (Lipitor) 40 mg HS PO Last administered on 08/20/16 20:47 ; Admin Dose 40 MG; Start 08/01/16 at 21:00 Calcitriol (Rocaltrol) 0.25 mcg DAILY PO Last administered on 08/20/16 08:40; Admin Dose 0.25 MCG; Start 08/01/16 at 09:00 Calcium/Vitamin D (Oyster Shell/ Vit-D (500/200)) 1 tab BID PO Last administered on 08/20/16 20:47; Admin Dose 1 TAB; Start 08/01/16 at 09:00 Hydralazine HCl (Apresoline) 50 mg Q8 PO Last administered on 08/20/16 06:01; Admin Dose 50 MG; Start 08/01/16 at 06:00 Paroxetine HCl (Paxil) 10 mg DAILY PO Last administered on 08/20/16 08:42; Admin Dose 10 MG; Start 08/01/16 at 09:00 Acetaminophen (Tylenol Tab) 650 mg Q4H PRN PO PAIN AND OR ELEVATED TEMP Last administered on 08/19/16 08:55; Admin Dose 650 MG; Start 08/01/16 at 00:30 Hydralazine HCl (Apresoline) 20 mg Q6H PRN IV ELEVATED BLOOD PRESSURE Last administered on 08/09/16 03:50; Admin Dose 20 MG; Start 08/01/16 at 00:30 Guaifenesin/ Dextromethorphan (Robitussin Dm Liquid Cup) 10 ml Q4H PRN PO COUGH Last administered on 08/20/16 21:07; Admin Dose 10 ML; Start 08/01/16 at 00:30 Epoetin [place]aden (Epogen (Esrd)) 6,000 units MoWeFr@17 SC Last administered on 08/20 18:23; Admin Dose 6,000 UNITS; Start 08/02/16 at 17:00 Linagliptin (Tradjenta) 5 mg DAILY PO Last administered on 08/20/16 08:42; Admin Dose 5 MG; Start 08/04/16 at 20:00 Salmeterol Xinafoate/ Fluticasone (Advair 250/50 Diskus) 1 inh BID INH Last administered on 08/21/16 09:09; Admin Dose 1 INH; Start 08/08/16 at 11:00 Montelukast Sodium (Singulair) 10 mg HS PO Last administered on 08/20/16 20:47 ; Admin Dose 10 MG; Start 08/08/16 at 21:00 Tiotropium [place] (Spiriva) 1 inh DAILY INH Last administered on 08/19/16 08: 58; Admin Dose 1 INH; Start 08/08/16 at 11:00 Miscellaneous Information 1 ea NOTE XX ; Start 08/13/16 at 17:30 Glucose (Glutose) 15 gm Q15M PRN PO DECREASED GLUCOSE; Start 08/13/16 at 17:30 Glucose (Glutose) 22.5 gm Q15M PRN PO DECREASED GLUCOSE; Start 08/13/16 at 17:30 Dextrose (D50w Syringe) 25 ml Q15M PRN IV DECREASED GLUCOSE; Start 08/13/16 at 17:30 Dextrose (D50w Syringe) 50 ml Q15M PRN IV DECREASED GLUCOSE; Start 08/13/16 at 17:30 Glucagon (Glucagen) 1 mg Q15M PRN IM DECREASED GLUCOSE; Start 08/13/16 at 17:30 Glucose 15 gm 15 gm Q15M PRN BUCCAL DECREASED GLUCOSE; Start 08/13/16 at 17:30 Vancomycin HCl (Vancocin) 250 ml @ 125 mls/hr Q96H IVPB Last administered on 10:27; Admin Dose 125 MLS/HR; Start 08/16/16 at 10:00 Apixaban (Eliquis) 5 mg BID PO Last administered on 08/20/16 20:47; Admin Dose 5 MG; Start 08/17/16 at 21:00 Amikacin Sulfate (Amikacin Iv Per Pharmacy) AMIKACIN PER PHARMACY NOTE XX ; Start 08/18/16 at 16:30 Metoprolol Tartrate (Lopressor) 50 mg BID PO Last administered on 08/20/16 20: 49; Admin Dose 50 MG; Start 08/19/16 at 09:00 Phenol (Cepastat Lozenge) 1 lozenge Q1H PRN MT SORE THROAT Last administered on 08/19/16 18:56; Admin Dose 1 LOZENGE; Start 08/19/16 at 16:30 Diagnostic Test (Pha) (Accu-Chek) 1 ea 02 XX Last administered on 08/21/16 02: 00; Admin Dose 1 EA; Start 08/20/16 at 02:00 Nystatin 1 applic 1 applic BID TOP Last administered on 08/21/16 09:18; Admin Dose 1 APPLIC; Start 08/19/16 at 21:00 Dextrose/Sodium Chloride (D5-1/2ns) 1,000 ml @ 40 mls/hr Q24H IV Last administered on 08/20/16 14:53; Admin Dose 40 MLS/HR; Start 08/20/16 at 13:00 Digoxin (Digoxin) 125 mcg DAILY@13 IV ; Start 08/20/16 at 13:03 Diltiazem HCl (Cardizem Iv) 10 mg Q4 PRN IV HR>120; Start 08/20/16 at 18:30 ANGEL DANIELS Aug 21, 2016 11:17
[2016-08-21] MEDS: DEXTROSE 5%-0.45% NACL 1,000 ML IV SCH ×2 (13:00→17:32)
[2016-08-21] MEDS: DIGOXIN 500 MCG INJ IV SCH (13:25)
--- NOTE | 2016-08-21 16:36 | CONS ---
Date/Time of Note Date/Time of Note DATE: 08/21/16 TIME: 16:35 Consult Date/Type/Reason Admit Date/Time Jul 31, 2016 at 19:59 Initial Consult Date 08/06/16 Type of Consultation: Card and Vascular Int Ordering Provider: LALA ORO Objective Vital Signs Date Time Temp Pulse Resp B/P Pulse Ox O2 Delivery O2 Flow Rate FiO2 08/21/16 16:07 148 08/21/16 15:22 98.7 20 118/58 90 08/21/16 14:37 15.0 08/21/16 14:36 Venti Mask 50 Intake and Output 08/20/16 08/20/16 08/21/16 15:00 23:00 07:00 Intake Total 50 ml Balance 50 ml Results/Medications Result Diagram: 08/21/16 0555 08/21/16 0555 Results 24 hrs Laboratory Tests Test 08/20/16 18:17 08/20/16 20:43 08/21/16 02:15 08/21/16 05:55 Bedside Glucose 70 95 129 White Blood Count 14.1 H Red Blood Count 3.08 L Hemoglobin 9.0 L Hematocrit 29.4 L Mean Corpuscular Volume 95.5 Mean Corpuscular Hemoglobin 29.2 Mean Corpuscular Hemoglobin Concent 30.6 L Red Cell Distribution Width 15.0 H Platelet Count 166 Mean Platelet Volume 11.1 H Neutrophils % 94.5 H Lymphocytes % 2.0 L Monocytes % 2.8 Eosinophils % 0.0 Basophils % 0.1 Nucleated Red Blood Cells % 0.1 H Neutrophils # 13.4 H Lymphocytes # 0.3 L Monocytes # 0.4 Eosinophils # 0.0 Basophils # 0.0 Nucleated Red Blood Cells # 0.0 Sodium Level 138 Potassium Level 3.5 Chloride Level 100 Carbon Dioxide Level 25 Anion Gap 17 H Blood Urea Nitrogen 40 #H Creatinine 4.39 #H Glucose Level 128 # Calcium Level 7.7 L Test 08/21/16 07:28 08/21/16 11:26 Bedside Glucose 154 134 Medications Current Medications Atorvastatin Calcium (Lipitor) 40 mg HS PO Last administered on 08/20/16 20:47 ; Admin Dose 40 MG; Start 08/01/16 at 21:00 Calcitriol (Rocaltrol) 0.25 mcg DAILY PO Last administered on 08/20/16 08:40; Admin Dose 0.25 MCG; Start 08/01/16 at 09:00 Calcium/Vitamin D (Oyster Shell/ Vit-D (500/200)) 1 tab BID PO Last administered on 08/20/16 20:47; Admin Dose 1 TAB; Start 08/01/16 at 09:00 Hydralazine HCl (Apresoline) 50 mg Q8 PO Last administered on 08/20/16 06:01; Admin Dose 50 MG; Start 08/01/16 at 06:00 Paroxetine HCl (Paxil) 10 mg DAILY PO Last administered on 08/20/16 08:42; Admin Dose 10 MG; Start 08/01/16 at 09:00 Acetaminophen (Tylenol Tab) 650 mg Q4H PRN PO PAIN AND OR ELEVATED TEMP Last administered on 08/19/16 08:55; Admin Dose 650 MG; Start 08/01/16 at 00:30 Hydralazine HCl (Apresoline) 20 mg Q6H PRN IV ELEVATED BLOOD PRESSURE Last administered on 08/09/16 03:50; Admin Dose 20 MG; Start 08/01/16 at 00:30 Guaifenesin/ Dextromethorphan (Robitussin Dm Liquid Cup) 10 ml Q4H PRN PO COUGH Last administered on 08/20/16 21:07; Admin Dose 10 ML; Start 08/01/16 at 00:30 Epoetin Braden (Epogen (Esrd)) 6,000 units MoWeFr@17 SC Last administered on 08/20 18:23; Admin Dose 6,000 UNITS; Start 08/02/16 at 17:00 Linagliptin (Tradjenta) 5 mg DAILY PO Last administered on 08/20/16 08:42; Admin Dose 5 MG; Start 08/04/16 at 20:00 Salmeterol Xinafoate/ Fluticasone (Advair 250/50 Diskus) 1 inh BID INH Last administered on 08/21/16 09:09; Admin Dose 1 INH; Start 08/08/16 at 11:00 Montelukast Sodium (Singulair) 10 mg HS PO Last administered on 08/20/16 20:47 ; Admin Dose 10 MG; Start 08/08/16 at 21:00 Tiotropium [place] (Spiriva) 1 inh DAILY INH Last administered on 08/19/16 08: 58; Admin Dose 1 INH; Start 08/08/16 at 11:00 Miscellaneous Information 1 ea NOTE XX ; Start 08/13/16 at 17:30 Glucose (Glutose) 15 gm Q15M PRN PO DECREASED GLUCOSE; Start 08/13/16 at 17:30 Glucose (Glutose) 22.5 gm Q15M PRN PO DECREASED GLUCOSE; Start 08/13/16 at 17:30 Dextrose (D50w Syringe) 25 ml Q15M PRN IV DECREASED GLUCOSE; Start 08/13/16 at 17:30 Dextrose (D50w Syringe) 50 ml Q15M PRN IV DECREASED GLUCOSE; Start 08/13/16 at 17:30 Glucagon (Glucagen) 1 mg Q15M PRN IM DECREASED GLUCOSE; Start 08/13/16 at 17:30 Glucose 15 gm 15 gm Q15M PRN BUCCAL DECREASED GLUCOSE; Start 08/13/16 at 17:30 Vancomycin HCl (Vancocin) 250 ml @ 125 mls/hr Q96H IVPB Last administered on 10:27; Admin Dose 125 MLS/HR; Start 08/16/16 at 10:00 Apixaban (Eliquis) 5 mg BID PO Last administered on 08/20/16 20:47; Admin Dose 5 MG; Start 08/17/16 at 21:00 Amikacin Sulfate (Amikacin Iv Per Pharmacy) AMIKACIN PER PHARMACY NOTE XX ; Start 08/18/16 at 16:30 Metoprolol Tartrate (Lopressor) 50 mg BID PO Last administered on 08/20/16 20: 49; Admin Dose 50 MG; Start 08/19/16 at 09:00 Phenol (Cepastat Lozenge) 1 lozenge Q1H PRN MT SORE THROAT Last administered on 08/19/16 18:56; Admin Dose 1 LOZENGE; Start 08/19/16 at 16:30 Diagnostic Test (Pha) (Accu-Chek) 1 ea 02 XX Last administered on 08/21/16 02: 00; Admin Dose 1 EA; Start 08/20/16 at 02:00 Nystatin 1 applic 1 applic BID TOP Last administered on 08/21/16 09:18; Admin Dose 1 APPLIC; Start 08/19/16 at 21:00 Dextrose/Sodium Chloride (D5-1/2ns) 1,000 ml @ 40 mls/hr Q24H IV Last administered on 08/20/16 14:53; Admin Dose 40 MLS/HR; Start 08/20/16 at 13:00 Digoxin (Digoxin) 125 mcg DAILY@13 IV Last administered on 08/21/16 13:25; Admin Dose 125 MCG; Start 08/20/16 at 13:03 Diltiazem HCl (Cardizem Iv) 10 mg Q4 PRN IV HR>120; Start 08/20/16 at 18:30 Assessment/Plan Chief Complaint/Hosp Course Patient is 85 year old F with PMH of HTN, HLD, CKD now presentezd with SOB and ESRD was started on HD. She already has been planning for Stage IV CKD and had fistula done already. Pt does have some SOB. significant Leg edema. Likely realted to CKD and Diastolic HF. LVEF is nl. Problems: Additional Assessment/Plan Pt is afib flutter still NPO ENT has seen the pt has some trauma due to intubation and now has candidiasis she should be started on liquid diet and advance as needed. Speech and swallow eval liqued should be started so she can take PO meds Abx SIERRA GARCIA MD Aug 21, 2016 16:36
--- NOTE | 2016-08-21 17:01 | CONS ---
Date/Time of Note Date/Time of Note DATE: 08/21/16 TIME: 16:59 Assessment/Plan Assessment/Plan Chief Complaint/Hosp Course IMPRESSION: 1. End-stage renal disease stage V. 2. Fluid overload.better 3. Pulmonary edema./pleural effusion/lung infilterate 4. Anemia of chronic kidney disease. 5. History of diabetes mellitus. 6. 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 7. AV fistula on the left upper extremity. 8 pneumonia/bronchites 9 thoracentesis s/p 10 afib alutter neeed better rate control plan continue hd am fluis res antibiotic per pulmonary per cardio Problems: Consultation Date/Type/Reason Admit Date/Time Jul 31, 2016 at 19:59 Initial Consult Date 08/01/16 Type of Consultation: renal Referring Provider: LALA ORO 24 HR Interval Summary Constitutional: other (s/p arrthymia during hd hd stopped) Exam/Review of Systems Vital Signs Vitals Vital Signs Date Time Temp Pulse Resp B/P Pulse Ox O2 Delivery O2 Flow Rate FiO2 08/21/16 16:07 148 08/21/16 15:22 98.7 20 118/58 90 08/21/16 14:37 15.0 08/21/16 14:36 Venti Mask 50 Intake and Output 08/20/16 08/20/16 08/21/16 15:00 23:00 07:00 Intake Total 50 ml Balance 50 ml Exam Respiratory: diminished breath sounds Cardiovascular: irregular rhythm Gastrointestinal: bowel sounds (+), soft Extremities: edema (+) Results Result Diagram: 08/21/16 0555 08/21/16 0555 Results 24 hrs Laboratory Tests Test 08/20/16 18:17 08/20/16 20:43 08/21/16 02:15 08/21/16 05:55 Bedside Glucose 70 95 129 White Blood Count 14.1 H Red Blood Count 3.08 L Hemoglobin 9.0 L Hematocrit 29.4 L Mean Corpuscular Volume 95.5 Mean Corpuscular Hemoglobin 29.2 Mean Corpuscular Hemoglobin Concent 30.6 L Red Cell Distribution Width 15.0 H Platelet Count 166 Mean Platelet Volume 11.1 H Neutrophils % 94.5 H Lymphocytes % 2.0 L Monocytes % 2.8 Eosinophils % 0.0 Basophils % 0.1 Nucleated Red Blood Cells % 0.1 H Neutrophils # 13.4 H Lymphocytes # 0.3 L Monocytes # 0.4 Eosinophils # 0.0 Basophils # 0.0 Nucleated Red Blood Cells # 0.0 Sodium Level 138 Potassium Level 3.5 Chloride Level 100 Carbon Dioxide Level 25 Anion Gap 17 H Blood Urea Nitrogen 40 #H Creatinine 4.39 #H Glucose Level 128 # Calcium Level 7.7 L Test 08/21/16 07:28 08/21/16 11:26 Bedside Glucose 154 134 Medications Medications Current Medications Atorvastatin Calcium (Lipitor) 40 mg HS PO Last administered on 08/20/16 20:47 ; Admin Dose 40 MG; Start 08/01/16 at 21:00 Calcitriol (Rocaltrol) 0.25 mcg DAILY PO Last administered on 08/20/16 08:40; Admin Dose 0.25 MCG; Start 08/01/16 at 09:00 Calcium/Vitamin D (Oyster Shell/ Vit-D (500/200)) 1 tab BID PO Last administered on 08/20/16 20:47; Admin Dose 1 TAB; Start 08/01/16 at 09:00 Hydralazine HCl (Apresoline) 50 mg Q8 PO Last administered on 08/20/16 06:01; Admin Dose 50 MG; Start 08/01/16 at 06:00 Paroxetine HCl (Paxil) 10 mg DAILY PO Last administered on 08/20/16 08:42; Admin Dose 10 MG; Start 08/01/16 at 09:00 Acetaminophen (Tylenol Tab) 650 mg Q4H PRN PO PAIN AND OR ELEVATED TEMP Last administered on 08/19/16 08:55; Admin Dose 650 MG; Start 08/01/16 at 00:30 Hydralazine HCl (Apresoline) 20 mg Q6H PRN IV ELEVATED BLOOD PRESSURE Last administered on 08/09/16 03:50; Admin Dose 20 MG; Start 08/01/16 at 00:30 Guaifenesin/ Dextromethorphan (Robitussin Dm Liquid Cup) 10 ml Q4H PRN PO COUGH Last administered on 08/20/16 21:07; Admin Dose 10 ML; Start 08/01/16 at 00:30 Epoetin [place] (Epogen (Esrd)) 6,000 units MoWeFr@17 SC Last administered on 08/20 18:23; Admin Dose 6,000 UNITS; Start 08/02/16 at 17:00 Linagliptin (Tradjenta) 5 mg DAILY PO Last administered on 08/20/16 08:42; Admin Dose 5 MG; Start 08/04/16 at 20:00 Salmeterol Xinafoate/ Fluticasone (Advair 250/50 Diskus) 1 inh BID INH Last administered on 08/21/16 09:09; Admin Dose 1 INH; Start 08/08/16 at 11:00 Montelukast Sodium (Singulair) 10 mg HS PO Last administered on 08/20/16 20:47 ; Admin Dose 10 MG; Start 08/08/16 at 21:00 Tiotropium [place] (Spiriva) 1 inh DAILY INH Last administered on 08/19/16 08: 58; Admin Dose 1 INH; Start 08/08/16 at 11:00 Miscellaneous Information 1 ea NOTE XX ; Start 08/13/16 at 17:30 Glucose (Glutose) 15 gm Q15M PRN PO DECREASED GLUCOSE; Start 08/13/16 at 17:30 Glucose (Glutose) 22.5 gm Q15M PRN PO DECREASED GLUCOSE; Start 08/13/16 at 17:30 Dextrose (D50w Syringe) 25 ml Q15M PRN IV DECREASED GLUCOSE; Start 08/13/16 at 17:30 Dextrose (D50w Syringe) 50 ml Q15M PRN IV DECREASED GLUCOSE; Start 08/13/16 at 17:30 Glucagon (Glucagen) 1 mg Q15M PRN IM DECREASED GLUCOSE; Start 08/13/16 at 17:30 Glucose 15 gm 15 gm Q15M PRN BUCCAL DECREASED GLUCOSE; Start 08/13/16 at 17:30 Vancomycin HCl (Vancocin) 250 ml @ 125 mls/hr Q96H IVPB Last administered on 10:27; Admin Dose 125 MLS/HR; Start 08/16/16 at 10:00 Apixaban (Eliquis) 5 mg BID PO Last administered on 08/20/16 20:47; Admin Dose 5 MG; Start 08/17/16 at 21:00 Amikacin Sulfate (Amikacin Iv Per Pharmacy) AMIKACIN PER PHARMACY NOTE XX ; Start 08/18/16 at 16:30 Metoprolol Tartrate (Lopressor) 50 mg BID PO Last administered on 08/20/16 20: 49; Admin Dose 50 MG; Start 08/19/16 at 09:00 Phenol (Cepastat Lozenge) 1 lozenge Q1H PRN MT SORE THROAT Last administered on 08/19/16 18:56; Admin Dose 1 LOZENGE; Start 08/19/16 at 16:30 Diagnostic Test (Pha) (Accu-Chek) 1 ea 02 XX Last administered on 08/21/16 02: 00; Admin Dose 1 EA; Start 08/20/16 at 02:00 Nystatin 1 applic 1 applic BID TOP Last administered on 08/21/16 09:18; Admin Dose 1 APPLIC; Start 08/19/16 at 21:00 Dextrose/Sodium Chloride (D5-1/2ns) 1,000 ml @ 40 mls/hr Q24H IV Last administered on 08/20/16 14:53; Admin Dose 40 MLS/HR; Start 08/20/16 at 13:00 Digoxin (Digoxin) 125 mcg DAILY@13 IV Last administered on 08/21/16 13:25; Admin Dose 125 MCG; Start 08/20/16 at 13:03 Diltiazem HCl (Cardizem Iv) 10 mg Q4 PRN IV HR>120; Start 08/20/16 at 18:30 DAT OLSON MD Aug 21, 2016 17:01
--- NOTE | 2016-08-21 20:36 | CONS ---
Date/Time of Note Date/Time of Note DATE: 08/21/16 TIME: 20:33 Assessment/Plan Assessment/Plan Chief Complaint/Hosp Course SUBJECTIVE: No acute changes, no fevers. Looks comfortable. ANTIMICROBIALS: 1. Amikacin. 2. Vancomycin. PHYSICAL EXAMINATION: GENERAL: This is a fragile, chronically ill-appearing, elderly woman who is in no distress. HEENT: Head atraumatic, normocephalic. Sclerae anicteric. Buccal mucosa dry. NECK: Supple, trachea midline. CHEST: Rise symmetrical. Breath sounds diminished to bases. HEART: S1, S2. ABDOMEN: Soft. Bowel tones present. EXTREMITIES: No cyanosis. ASSESSMENT: 1. Acute respiratory failure. 2. Pneumonia with pleural effusion status post thoracentesis 3. End-stage renal disease, hemodialysis dependent. 4. Status post bacteremia. 5. Diabetes. 6. History of pancreatic stent placement. 7. 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 ENT rec-s noted. Continue present care. DW staff Problems: Consultation Date/Type/Reason Admit Date/Time Jul 31, 2016 at 19:59 Initial Consult Date 08/06/16 Type of Consultation: id Referring Provider: LALA ORO Exam/Review of Systems Vital Signs Vitals Vital Signs Date Time Temp Pulse Resp B/P Pulse Ox O2 Delivery O2 Flow Rate FiO2 08/21/16 19:13 15.0 08/21/16 19:13 60 22 94 Venti Mask 50 08/21/16 19:02 98.3 132/60 Intake and Output 08/20/16 08/20/16 08/21/16 15:00 23:00 07:00 Intake Total 50 ml Balance 50 ml Results Result Diagram: 08/21/16 0555 08/21/16 0555 Results 24 hrs Laboratory Tests Test 08/20/16 20:43 08/21/16 02:15 08/21/16 05:55 08/21/16 07:28 Bedside Glucose 95 129 154 White Blood Count 14.1 H Red Blood Count 3.08 L Hemoglobin 9.0 L Hematocrit 29.4 L Mean Corpuscular Volume 95.5 Mean Corpuscular Hemoglobin 29.2 Mean Corpuscular Hemoglobin Concent 30.6 L Red Cell Distribution Width 15.0 H Platelet Count 166 Mean Platelet Volume 11.1 H Neutrophils % 94.5 H Lymphocytes % 2.0 L Monocytes % 2.8 Eosinophils % 0.0 Basophils % 0.1 Nucleated Red Blood Cells % 0.1 H Neutrophils # 13.4 H Lymphocytes # 0.3 L Monocytes # 0.4 Eosinophils # 0.0 Basophils # 0.0 Nucleated Red Blood Cells # 0.0 Sodium Level 138 Potassium Level 3.5 Chloride Level 100 Carbon Dioxide Level 25 Anion Gap 17 H Blood Urea Nitrogen 40 #H Creatinine 4.39 #H Glucose Level 128 # Calcium Level 7.7 L Test 08/21/16 11:26 08/21/16 17:29 Bedside Glucose 134 158 Medications Medications Current Medications Atorvastatin Calcium (Lipitor) 40 mg HS PO Last administered on 08/20/16 20:47 ; Admin Dose 40 MG; Start 08/01/16 at 21:00 Calcitriol (Rocaltrol) 0.25 mcg DAILY PO Last administered on 08/20/16 08:40; Admin Dose 0.25 MCG; Start 08/01/16 at 09:00 Calcium/Vitamin D (Oyster Shell/ Vit-D (500/200)) 1 tab BID PO Last administered on 08/20/16 20:47; Admin Dose 1 TAB; Start 08/01/16 at 09:00 Hydralazine HCl (Apresoline) 50 mg Q8 PO Last administered on 08/20/16 06:01; Admin Dose 50 MG; Start 08/01/16 at 06:00 Paroxetine HCl (Paxil) 10 mg DAILY PO Last administered on 08/20/16 08:42; Admin Dose 10 MG; Start 08/01/16 at 09:00 Acetaminophen (Tylenol Tab) 650 mg Q4H PRN PO PAIN AND OR ELEVATED TEMP Last administered on 08/19/16 08:55; Admin Dose 650 MG; Start 08/01/16 at 00:30 Hydralazine HCl (Apresoline) 20 mg Q6H PRN IV ELEVATED BLOOD PRESSURE Last administered on 08/09/16 03:50; Admin Dose 20 MG; Start 08/01/16 at 00:30 Guaifenesin/ Dextromethorphan (Robitussin Dm Liquid Cup) 10 ml Q4H PRN PO COUGH Last administered on 08/20/16 21:07; Admin Dose 10 ML; Start 08/01/16 at 00:30 Epoetin [place]aden (Epogen (Esrd)) 6,000 units MoWeFr@17 SC Last administered on 08/20 18:23; Admin Dose 6,000 UNITS; Start 08/02/16 at 17:00 Linagliptin (Tradjenta) 5 mg DAILY PO Last administered on 08/20/16 08:42; Admin Dose 5 MG; Start 08/04/16 at 20:00 Salmeterol Xinafoate/ Fluticasone (Advair 250/50 Diskus) 1 inh BID INH Last administered on 08/21/16 09:09; Admin Dose 1 INH; Start 08/08/16 at 11:00 Montelukast Sodium (Singulair) 10 mg HS PO Last administered on 08/20/16 20:47 ; Admin Dose 10 MG; Start 08/08/16 at 21:00 Tiotropium [place] (Spiriva) 1 inh DAILY INH Last administered on 08/19/16 08: 58; Admin Dose 1 INH; Start 08/08/16 at 11:00 Miscellaneous Information 1 ea NOTE XX ; Start 08/13/16 at 17:30 Glucose (Glutose) 15 gm Q15M PRN PO DECREASED GLUCOSE; Start 08/13/16 at 17:30 Glucose (Glutose) 22.5 gm Q15M PRN PO DECREASED GLUCOSE; Start 08/13/16 at 17:30 Dextrose (D50w Syringe) 25 ml Q15M PRN IV DECREASED GLUCOSE; Start 08/13/16 at 17:30 Dextrose (D50w Syringe) 50 ml Q15M PRN IV DECREASED GLUCOSE; Start 08/13/16 at 17:30 Glucagon (Glucagen) 1 mg Q15M PRN IM DECREASED GLUCOSE; Start 08/13/16 at 17:30 Glucose 15 gm 15 gm Q15M PRN BUCCAL DECREASED GLUCOSE; Start 08/13/16 at 17:30 Vancomycin HCl (Vancocin) 250 ml @ 125 mls/hr Q96H IVPB Last administered on 10:27; Admin Dose 125 MLS/HR; Start 08/16/16 at 10:00 Apixaban (Eliquis) 5 mg BID PO Last administered on 08/20/16 20:47; Admin Dose 5 MG; Start 08/17/16 at 21:00 Amikacin Sulfate (Amikacin Iv Per Pharmacy) AMIKACIN PER PHARMACY NOTE XX ; Start 08/18/16 at 16:30 Metoprolol Tartrate (Lopressor) 50 mg BID PO Last administered on 08/20/16 20: 49; Admin Dose 50 MG; Start 08/19/16 at 09:00 Phenol (Cepastat Lozenge) 1 lozenge Q1H PRN MT SORE THROAT Last administered on 08/19/16 18:56; Admin Dose 1 LOZENGE; Start 08/19/16 at 16:30 Diagnostic Test (Pha) (Accu-Chek) 1 ea 02 XX Last administered on 08/21/16 02: 00; Admin Dose 1 EA; Start 08/20/16 at 02:00 Nystatin 1 applic 1 applic BID TOP Last administered on 08/21/16 09:18; Admin Dose 1 APPLIC; Start 08/19/16 at 21:00 Dextrose/Sodium Chloride (D5-1/2ns) 1,000 ml @ 40 mls/hr Q24H IV Last administered on 08/21/16 17:32; Admin Dose 40 MLS/HR; Start 08/20/16 at 13:00 Digoxin (Digoxin) 125 mcg DAILY@13 IV Last administered on 08/21/16 13:25; Admin Dose 125 MCG; Start 08/20/16 at 13:03 Diltiazem HCl (Cardizem Iv) 10 mg Q4 PRN IV HR>120; Start 08/20/16 at 18:30 NAHUN DOWNEY NP Aug 21, 2016 20:36
[2016-08-21] MEDS: NYSTATIN SUSP 5 ML CUP PO SCH (21:00)
[2016-08-21] MEDS: ATORVASTATIN 40 MG TAB PO SCH (21:00)
[2016-08-21] MEDS: MONTELUKAST 10 MG TAB PO SCH (21:00)
[2016-08-22] VITALS (32 sets, daily range): BP systolic 71–169; BP diastolic 43–86; PULSE 65–146; RESP 18–35
[2016-08-22] MEDS: FLUCONAZOLE 100 MG/NS (PMX) 50 ML IVPB SCH ×2 (00:11→23:01)
[2016-08-22] MEDS: ALBUTEROL/IPRATROPIUM (NEB) 3 ML AMP HHN SCH ×4 (01:08→19:53)
[2016-08-22] MEDS: ACCUCHECK AT 2AM (Patients on SS coverage) XX SCH (02:00)
[2016-08-22] MEDS: LORAZEPAM 2 MG INJ IV PRN (03:03)
[2016-08-22] MEDS: FUROSEMIDE 40 MG INJ IV SCH ×2 (06:00→18:00)
[2016-08-22] MEDS: DILTIAZEM 25 MG INJ IV PRN ×2 (07:52→16:37)
[2016-08-22] MEDS: CALCIUM ACETATE 667 MG CAP PO SCH ×3 (07:55→17:55)
[2016-08-22] MEDS: Insulin NOVOLOG SS MILD Algorithm (SS with meals and bedtime) SC SCH ×4 (07:56→21:00)
[2016-08-22] MEDS: APIXABAN 5 MG TABLET PO SCH ×2 (08:40→21:00)
[2016-08-22] MEDS: CLOTRIMAZOLE 10 MG TROCHE MT SCH ×5 (08:40→23:01)
[2016-08-22] MEDS: CALCIUM/VITAMIN D (500/200) TAB PO SCH ×2 (08:41→21:00)
[2016-08-22] MEDS: METOPROLOL 25 MG TAB PO SCH ×2 (08:41→21:00)
[2016-08-22] MEDS: CALCITRIOL 0.25 MCG CAP PO SCH (08:41)
[2016-08-22] MEDS: NYSTATIN SUSP 5 ML CUP PO SCH ×4 (08:41→23:02)
[2016-08-22] MEDS: LINAGLIPTIN 5 MG TABLET PO SCH (08:41)
[2016-08-22] MEDS: PAROXETINE 10 MG TAB PO SCH (08:41)
[2016-08-22] MEDS: TIOTROPIUM 18 MCG CAPSULE INHA DEV INH SCH (09:00)
[2016-08-22] MEDS: SALMETEROL/FLUTICASONE 250/50 INHA INH SCH ×2 (10:24→20:49)
[2016-08-22] MEDS: NYSTATIN 30 GM POWDER BTL TOP SCH ×2 (10:24→20:49)
--- NOTE | 2016-08-22 10:44 | CONS ---
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 Cont. linagliptin 5 mg daily. 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 not on chronic dialysis, with long-term current use of insulin Consultation Date/Type/Reason Admit Date/Time Jul 31, 2016 at 19:59 Initial Consult Date 08/06/16 Type of Consultation: Endocrinology Reason for Consultation T2DM management Referring Provider: LALA ORO 24 HR Interval Summary Subjective hx not possible: pt non-verbal (on BiPAP) Exam/Review of Systems Vital Signs Vitals VS - Last 72 Hours, by Label Date Time Temp Pulse Resp B/P Pulse Ox O2 Delivery O2 Flow Rate FiO2 08/22/16 09:30 89 96 60 08/22/16 08:28 118 08/22/16 08:20 128 89 60 08/22/16 08:06 92 23 91 Venti Mask 15.0 50 08/22/16 07:38 98.7 106 22 138/49 98 08/22/16 05:26 15.0 08/22/16 04:14 87 08/22/16 03:37 97.9 99 18 133/60 93 08/22/16 01:08 96 22 93 Venti Mask 15.0 50 08/22/16 00:47 97 08/21/16 23:22 98.1 70 21 117/57 96 08/21/16 23:01 99 97 60 08/21/16 20:41 101 08/21/16 20:32 150 93 60 08/21/16 19:13 15.0 08/21/16 19:13 60 22 94 Venti Mask 15.0 50 08/21/16 19:02 98.3 53 22 132/60 95 08/21/16 16:07 148 08/21/16 15:22 98.7 150 20 118/58 90 08/21/16 14:37 15.0 08/21/16 14:36 88 24 96 Venti Mask 15.0 50 08/21/16 12:20 77 08/21/16 11:48 155 18 08/21/16 11:15 167 08/21/16 11:15 Venti Mask 15.0 08/21/16 11:14 98.6 95 22 167/69 92 08/21/16 11:00 121 08/21/16 10:30 96 08/21/16 10:30 96 19 08/21/16 08:49 77 22 95 Venti Mask 15.0 50 08/21/16 08:11 90 08/21/16 07:39 98.9 85 22 117/46 92 08/21/16 04:10 101 08/21/16 04:02 97.6 90 18 104/48 93 08/21/16 01:31 79 21 Venti Mask 15.0 50 08/21/16 01:31 15.0 08/21/16 00:23 97.0 94 16 84/35 95 08/21/16 00:18 96 08/20/16 23:06 81 94 40 08/20/16 20:20 98.6 75 16 120/44 92 08/20/16 20:14 80 08/20/16 19:59 75 21 95 Venti Mask 15.0 50 08/20/16 19:59 95 15.0 08/20/16 16:43 15.0 08/20/16 16:04 80 08/20/16 15:40 80 93 40 08/20/16 15:24 97.6 81 21 124/58 95 08/20/16 14:04 77 21 94 08/20/16 13:30 77 94 40 08/20/16 12:04 103 08/20/16 12:00 97.6 82 19 119/58 93 08/20/16 11:30 84 93 40 08/20/16 09:15 75 95 40 08/20/16 08:57 75 24 91 Nasal Cannula 4.0 08/20/16 08:14 101 08/20/16 07:36 97.9 56 19 122/42 94 08/20/16 04:06 97.4 75 18 137/63 92 08/20/16 04:03 80 08/20/16 02:05 92 5.0 08/20/16 01:43 69 22 89 Nasal Cannula 4.0 08/20/16 00:02 70 08/20/16 00:00 97.9 73 21 138/63 92 08/19/16 23:39 3.0 08/19/16 22:30 74 96 40 08/19/16 20:25 73 93 40 08/19/16 20:07 98.3 62 18 135/61 91 08/19/16 20:04 77 22 93 Nasal Cannula 4.0 08/19/16 20:03 90 08/19/16 16:37 97 08/19/16 15:57 98.3 75 18 107/53 98 08/19/16 15:11 100 22 96 Nasal Cannula 3.0 32 08/19/16 12:15 75 18 08/19/16 12:15 75 08/19/16 12:05 97.6 102 18 107/61 95 08/19/16 11:45 78 08/19/16 11:15 107 08/19/16 10:45 107 Vital Signs Date Time Temp Pulse Resp B/P Pulse Ox O2 Delivery O2 Flow Rate FiO2 08/22/16 09:30 89 96 60 08/22/16 08:06 23 Venti Mask 15.0 08/22/16 07:38 98.7 138/49 Intake and Output 08/21/16 08/21/16 08/22/16 14:59 22:59 06:59 Intake Total 300 ml 0 ml Output Total 700 ml Balance -400 ml 0 ml Exam Constitutional: alert, frail, obese Psych: nl mood/affect, no complaints Respiratory: clear to auscultation, normal air movement Cardiovascular: nl pulses, regular rate and rhythm, No edema, No murmurs/extra sounds, No rub Gastrointestinal: bowel sounds, nl liver, spleen, non-tender, soft, No mass, No rebound or guarding Musculoskeletal: nl extremities to inspection Extremities: normal pulses, No clubbing, No cyanosis, No edema 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, nl mental status, nl speech, nl strength Additional Comments Bedside Glucose - 72 Hours Test 08/19/16 11:59 08/19/16 17:20 08/19/16 21:08 08/20/16 07:34 Bedside Glucose 140mg/dL (70-220) 198mg/dL (70-220) 70mg/dL (70-220) 66mg/dL (70-220) L Test 08/20/16 11:42 08/20/16 18:17 08/20/16 20:43 08/21/16 02:15 Bedside Glucose 99mg/dL (70-220) 70mg/dL (70-220) 95mg/dL (70-220) 129mg/dL (70-220) Test 08/21/16 07:28 08/21/16 11:26 08/21/16 17:29 08/21/16 21:58 Bedside Glucose 154mg/dL (70-220) 134mg/dL (70-220) 158mg/dL (70-220) 169mg/dL (70-220) Test 08/22/16 02:50 08/22/16 07:25 Bedside Glucose 183mg/dL (70-220) 165mg/dL (70-220) Results Result Diagram: 08/21/16 0555 08/21/16 0555 Results 24 hrs Laboratory Tests Test 08/21/16 11:26 08/21/16 17:29 08/21/16 21:58 08/22/16 02:50 Bedside Glucose 134 158 169 183 Test 08/22/16 07:25 Bedside Glucose 165 Medications Medications Current Medications Atorvastatin Calcium (Lipitor) 40 mg HS PO Last administered on 08/20/16 20:47 ; Admin Dose 40 MG; Start 08/01/16 at 21:00 Calcitriol (Rocaltrol) 0.25 mcg DAILY PO Last administered on 08/20/16 08:40; Admin Dose 0.25 MCG; Start 08/01/16 at 09:00 Calcium/Vitamin D (Oyster Shell/ Vit-D (500/200)) 1 tab BID PO Last administered on 08/20/16 20:47; Admin Dose 1 TAB; Start 08/01/16 at 09:00 Hydralazine HCl (Apresoline) 50 mg Q8 PO Last administered on 08/20/16 06:01; Admin Dose 50 MG; Start 08/01/16 at 06:00 Paroxetine HCl (Paxil) 10 mg DAILY PO Last administered on 08/20/16 08:42; Admin Dose 10 MG; Start 08/01/16 at 09:00 Acetaminophen (Tylenol Tab) 650 mg Q4H PRN PO PAIN AND OR ELEVATED TEMP Last administered on 08/19/16 08:55; Admin Dose 650 MG; Start 08/01/16 at 00:30 Hydralazine HCl (Apresoline) 20 mg Q6H PRN IV ELEVATED BLOOD PRESSURE Last administered on 08/09/16 03:50; Admin Dose 20 MG; Start 08/01/16 at 00:30 Guaifenesin/ Dextromethorphan (Robitussin Dm Liquid Cup) 10 ml Q4H PRN PO COUGH Last administered on 08/20/16 21:07; Admin Dose 10 ML; Start 08/01/16 at 00:30 Epoetin Braden (Epogen (Esrd)) 6,000 units MoWeFr@17 SC Last administered on 08/20 18:23; Admin Dose 6,000 UNITS; Start 08/02/16 at 17:00 Linagliptin (Tradjenta) 5 mg DAILY PO Last administered on 08/20/16 08:42; Admin Dose 5 MG; Start 08/04/16 at 20:00 Salmeterol Xinafoate/ Fluticasone (Advair 250/50 Diskus) 1 inh BID INH Last administered on 08/22/16 10:24; Admin Dose 1 INH; Start 08/08/16 at 11:00 Montelukast Sodium (Singulair) 10 mg HS PO Last administered on 08/20/16 20:47 ; Admin Dose 10 MG; Start 08/08/16 at 21:00 Tiotropium [place] (Spiriva) 1 inh DAILY INH Last administered on 08/22/16 09: 00; Admin Dose 1 INH; Start 08/08/16 at 11:00 Miscellaneous Information 1 ea NOTE XX ; Start 08/13/16 at 17:30 Glucose (Glutose) 15 gm Q15M PRN PO DECREASED GLUCOSE; Start 08/13/16 at 17:30 Glucose (Glutose) 22.5 gm Q15M PRN PO DECREASED GLUCOSE; Start 08/13/16 at 17:30 Dextrose (D50w Syringe) 25 ml Q15M PRN IV DECREASED GLUCOSE; Start 08/13/16 at 17:30 Dextrose (D50w Syringe) 50 ml Q15M PRN IV DECREASED GLUCOSE; Start 08/13/16 at 17:30 Glucagon (Glucagen) 1 mg Q15M PRN IM DECREASED GLUCOSE; Start 08/13/16 at 17:30 Glucose 15 gm 15 gm Q15M PRN BUCCAL DECREASED GLUCOSE; Start 08/13/16 at 17:30 Vancomycin HCl (Vancocin) 250 ml @ 125 mls/hr Q96H IVPB Last administered on 10:27; Admin Dose 125 MLS/HR; Start 08/16/16 at 10:00 Apixaban (Eliquis) 5 mg BID PO Last administered on 08/20/16 20:47; Admin Dose 5 MG; Start 08/17/16 at 21:00 Amikacin Sulfate (Amikacin Iv Per Pharmacy) AMIKACIN PER PHARMACY NOTE XX ; Start 08/18/16 at 16:30 Metoprolol Tartrate (Lopressor) 50 mg BID PO Last administered on 08/20/16 20: 49; Admin Dose 50 MG; Start 08/19/16 at 09:00 Phenol (Cepastat Lozenge) 1 lozenge Q1H PRN MT SORE THROAT Last administered on 08/19/16 18:56; Admin Dose 1 LOZENGE; Start 08/19/16 at 16:30 Diagnostic Test (Pha) (Accu-Chek) 1 ea 02 XX Last administered on 08/22/16 02: 00; Admin Dose 1 EA; Start 08/20/16 at 02:00 Nystatin 1 applic 1 applic BID TOP Last administered on 08/22/16 10:24; Admin Dose 1 APPLIC; Start 08/19/16 at 21:00 Dextrose/Sodium Chloride (D5-1/2ns) 1,000 ml @ 40 mls/hr Q24H IV Last administered on 08/21/16 17:32; Admin Dose 40 MLS/HR; Start 08/20/16 at 13:00 Digoxin (Digoxin) 125 mcg DAILY@13 IV Last administered on 08/21/16 13:25; Admin Dose 125 MCG; Start 08/20/16 at 13:03 Diltiazem HCl 10 mg 10 mg Q4 PRN IV HR>120 Last administered on 08/22/16 07:52 ; Admin Dose 10 MG; Start 08/20/16 at 18:30 Fluconazole/ Sodium Chloride (Diflucan 100 Mg/ NS (Pmx)) 50 ml @ 50 mls/hr Q24H IVPB Last administered on 08/22/16 00:11; Admin Dose 50 MLS/HR; Start at 21:00 Nystatin (Nystatin Susp) 5 ml QID PO ; Start 08/21/16 at 21:00 Lorazepam (Ativan) 1 mg Q2 PRN IV ANXIETY Last administered on 08/22/16t 03:03 ; Admin Dose 1 MG; Start 08/21/16 at 21:00 JUDAH NOE MD Aug 22, 2016 10:44
--- NOTE | 2016-08-22 12:23 | PN ---
Date/Time of Note Date/Time of Note DATE: 08/22/16 TIME: 12:22 Assessment/Plan VTE Prophylaxis VTE Prophylaxis Intervention: other Lines/Catheters IV [facility]ter Type (from [facility]): Peripheral IV Urinary Cath still in place: No Assessment/Plan Chief Complaint/Hosp Course - Dysphagia - failed swallow evaluation - npo - IVF- gentle hydration as patient is renal patient - ENT CONSULT- Dr Araiza notified - aspiration precautions - Acute respiratory insufficiency secondary to pneumonia and COPD exacerbation. - Right-sided pneumonia per CT scan, continue cefepime. - A-fib with RVR, continue Cardizem, patient is followed by Dr. Stuart in cardiology. - COPD exacerbation, continue breathing treatment. Dr. Natarajan is following in pulmonology consultation - End-stage renal disease stage V. Dr. Leon is following in nephrology consultation. Continue to hemodialysis via right femoral hemodialysis catheter. - Pulmonary edema. Continue diuresis. - per pulmonary - per CXR- Worse appearance of the lung bases and slightly larger bilateral pleural effusions.No other change from 08/14/2016. - Anemia of chronic kidney disease. Continue Epogen. - Diabetes mellitus type [address] Garcia is following an endocrinology consultation. Continue NPH. - Hypertension, continue Norvasc. - Left upper extremity AV fistula, non-matured - Status post right hemodialysis non-tunneled catheter placement by Dr. Manning on 08/03. S/p R IJ tunneled hemodialysis catheter placement. Problems: Subjective 24 Hr Interval Summary Free Text/Dictation Patient has shortness of breath Exam/Review of Systems Vital Signs Vitals Vital Signs Date Time Temp Pulse Resp B/P Pulse Ox O2 Delivery O2 Flow Rate FiO2 08/22/16 12:21 105 08/22/16 11:25 Venti Mask 15.0 08/22/16 11:16 99.2 29 138/48 96 08/22/16 11:00 60 Intake and Output 08/21/16 08/21/16 08/22/16 15:00 23:00 07:00 Intake Total 300 ml 0 ml Output Total 700 ml Balance -400 ml 0 ml Exam Constitutional: well developed Head: atraumatic, normocephalic Neck: supple Respiratory: diminished breath sounds Cardiovascular: regular rate and rhythm Gastrointestinal: non-tender, soft Extremities: normal pulses Results Result Diagram: 08/21/16 0555 08/21/16 0555 Results 24 hrs Laboratory Tests Test 08/21/16 17:29 08/21/16 21:58 08/22/16 02:50 08/22/16 07:25 Bedside Glucose 158 169 183 165 Test 08/22/16 11:42 Bedside Glucose 169 Medications Medications Current Medications Atorvastatin Calcium (Lipitor) 40 mg HS PO Last administered on 08/20/16 20:47 ; Admin Dose 40 MG; Start 08/01/16 at 21:00 Calcitriol (Rocaltrol) 0.25 mcg DAILY PO Last administered on 08/20/16 08:40; Admin Dose 0.25 MCG; Start 08/01/16 at 09:00 Calcium/Vitamin D (Oyster Shell/ Vit-D (500/200)) 1 tab BID PO Last administered on 08/20/16 20:47; Admin Dose 1 TAB; Start 08/01/16 at 09:00 Hydralazine HCl (Apresoline) 50 mg Q8 PO Last administered on 08/20/16 06:01; Admin Dose 50 MG; Start 08/01/16 at 06:00 Paroxetine HCl (Paxil) 10 mg DAILY PO Last administered on 08/20/16 08:42; Admin Dose 10 MG; Start 08/01/16 at 09:00 Acetaminophen (Tylenol Tab) 650 mg Q4H PRN PO PAIN AND OR ELEVATED TEMP Last administered on 08/19/16 08:55; Admin Dose 650 MG; Start 08/01/16 at 00:30 Hydralazine HCl (Apresoline) 20 mg Q6H PRN IV ELEVATED BLOOD PRESSURE Last administered on 08/09/16 03:50; Admin Dose 20 MG; Start 08/01/16 at 00:30 Guaifenesin/ Dextromethorphan (Robitussin Dm Liquid Cup) 10 ml Q4H PRN PO COUGH Last administered on 08/20/16 21:07; Admin Dose 10 ML; Start 08/01/16 at 00:30 Epoetin Braden (Epogen (Esrd)) 6,000 units MoWeFr@17 SC Last administered on 08/20 18:23; Admin Dose 6,000 UNITS; Start 08/02/16 at 17:00 Linagliptin (Tradjenta) 5 mg DAILY PO Last administered on 08/20/16 08:42; Admin Dose 5 MG; Start 08/04/16 at 20:00 Salmeterol Xinafoate/ Fluticasone (Advair 250/50 Diskus) 1 inh BID INH Last administered on 08/22/16 10:24; Admin Dose 1 INH; Start 08/08/16 at 11:00 Montelukast Sodium (Singulair) 10 mg HS PO Last administered on 08/20/16 20:47 ; Admin Dose 10 MG; Start 08/08/16 at 21:00 Tiotropium [place] (Spiriva) 1 inh DAILY INH Last administered on 08/22/16 09: 00; Admin Dose 1 INH; Start 08/08/16 at 11:00 Miscellaneous Information 1 ea NOTE XX ; Start 08/13/16 at 17:30 Glucose (Glutose) 15 gm Q15M PRN PO DECREASED GLUCOSE; Start 08/13/16 at 17:30 Glucose (Glutose) 22.5 gm Q15M PRN PO DECREASED GLUCOSE; Start 08/13/16 at 17:30 Dextrose (D50w Syringe) 25 ml Q15M PRN IV DECREASED GLUCOSE; Start 08/13/16 at 17:30 Dextrose (D50w Syringe) 50 ml Q15M PRN IV DECREASED GLUCOSE; Start 08/13/16 at 17:30 Glucagon (Glucagen) 1 mg Q15M PRN IM DECREASED GLUCOSE; Start 08/13/16 at 17:30 Glucose 15 gm 15 gm Q15M PRN BUCCAL DECREASED GLUCOSE; Start 08/13/16 at 17:30 Vancomycin HCl (Vancocin) 250 ml @ 125 mls/hr Q96H IVPB Last administered on 10:27; Admin Dose 125 MLS/HR; Start 08/16/16 at 10:00 Apixaban (Eliquis) 5 mg BID PO Last administered on 08/20/16 20:47; Admin Dose 5 MG; Start 08/17/16 at 21:00 Amikacin Sulfate (Amikacin Iv Per Pharmacy) AMIKACIN PER PHARMACY NOTE XX ; Start 08/18/16 at 16:30 Metoprolol Tartrate (Lopressor) 50 mg BID PO Last administered on 08/20/16 20: 49; Admin Dose 50 MG; Start 08/19/16 at 09:00 Phenol (Cepastat Lozenge) 1 lozenge Q1H PRN MT SORE THROAT Last administered on 08/19/16 18:56; Admin Dose 1 LOZENGE; Start 08/19/16 at 16:30 Diagnostic Test (Pha) (Accu-Chek) 1 ea 02 XX Last administered on 08/22/16 02: 00; Admin Dose 1 EA; Start 08/20/16 at 02:00 Nystatin 1 applic 1 applic BID TOP Last administered on 08/22/16 10:24; Admin Dose 1 APPLIC; Start 08/19/16 at 21:00 Dextrose/Sodium Chloride (D5-1/2ns) 1,000 ml @ 40 mls/hr Q24H IV Last administered on 08/21/16 17:32; Admin Dose 40 MLS/HR; Start 08/20/16 at 13:00 Digoxin (Digoxin) 125 mcg DAILY@13 IV Last administered on 08/21/16 13:25; Admin Dose 125 MCG; Start 08/20/16 at 13:03 Diltiazem HCl 10 mg 10 mg Q4 PRN IV HR>120 Last administered on 08/22/16 07:52 ; Admin Dose 10 MG; Start 08/20/16 at 18:30 Fluconazole/ Sodium Chloride (Diflucan 100 Mg/ NS (Pmx)) 50 ml @ 50 mls/hr Q24H IVPB Last administered on 08/22/16 00:11; Admin Dose 50 MLS/HR; Start at 21:00 Nystatin (Nystatin Susp) 5 ml QID PO ; Start 08/21/16 at 21:00 Lorazepam (Ativan) 1 mg Q2 PRN IV ANXIETY Last administered on 08/22/16 03:03 ; Admin Dose 1 MG; Start 08/21/16 at 21:00 ANGEL DANIELS Aug 22, 2016 12:23
[2016-08-22] MEDS: DEXTROSE 5%-0.45% NACL 1,000 ML IV SCH (13:00)
[2016-08-22] MEDS: DIGOXIN 500 MCG INJ IV SCH (13:42)
--- NOTE | 2016-08-22 14:07 | CONS ---
Date/Time of Note Date/Time of Note DATE: 08/22/16 TIME: 14:04 Assessment/Plan Assessment/Plan Chief Complaint/Hosp Course IMPRESSION: 1. End-stage renal disease stage V. 2. Fluid overload.better 3. Pulmonary edema./pleural effusion/lung infilterate s/p thoracenresis 4. Anemia of chronic kidney disease. 5. History of diabetes mellitus. 6. 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 7. AV fistula on the left upper extremity. 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) Exam/Review of Systems Vital Signs Vitals Vital Signs Date Time Temp Pulse Resp B/P Pulse Ox O2 Delivery O2 Flow Rate FiO2 08/22/16 13:38 88 26 93 Venti Mask 15.0 50 08/22/16 11:16 99.2 138/48 Intake and Output 08/21/16 08/21/16 08/22/16 15:00 23:00 07:00 Intake Total 300 ml 0 ml Output Total 700 ml Balance -400 ml 0 ml Exam Respiratory: diminished breath sounds Cardiovascular: regular rate and rhythm Gastrointestinal: soft Musculoskeletal: nl extremities to inspection Extremities: normal pulses Results Result Diagram: 08/21/16 0555 08/21/16 0555 Results 24 hrs Laboratory Tests Test 08/21/16 17:29 08/21/16 21:58 08/22/16 02:50 08/22/16 07:25 Bedside Glucose 158 169 183 165 Test 08/22/16 11:42 Bedside Glucose 169 Medications Medications Current Medications Atorvastatin Calcium (Lipitor) 40 mg HS PO Last administered on 08/20/16 20:47 ; Admin Dose 40 MG; Start 08/01/16 at 21:00 Calcitriol (Rocaltrol) 0.25 mcg DAILY PO Last administered on 08/20/16 08:40; Admin Dose 0.25 MCG; Start 08/01/16 at 09:00 Calcium/Vitamin D (Oyster Shell/ Vit-D (500/200)) 1 tab BID PO Last administered on 08/20/16 20:47; Admin Dose 1 TAB; Start 08/01/16 at 09:00 Hydralazine HCl (Apresoline) 50 mg Q8 PO Last administered on 08/20/16 06:01; Admin Dose 50 MG; Start 08/01/16 at 06:00 Paroxetine HCl (Paxil) 10 mg DAILY PO Last administered on 08/20/16 08:42; Admin Dose 10 MG; Start 08/01/16 at 09:00 Acetaminophen (Tylenol Tab) 650 mg Q4H PRN PO PAIN AND OR ELEVATED TEMP Last administered on 08/19/16 08:55; Admin Dose 650 MG; Start 08/01/16 at 00:30 Hydralazine HCl (Apresoline) 20 mg Q6H PRN IV ELEVATED BLOOD PRESSURE Last administered on 08/09/16 03:50; Admin Dose 20 MG; Start 08/01/16 at 00:30 Guaifenesin/ Dextromethorphan (Robitussin Dm Liquid Cup) 10 ml Q4H PRN PO COUGH Last administered on 08/20/16 21:07; Admin Dose 10 ML; Start 08/01/16 at 00:30 Epoetin Braden (Epogen (Esrd)) 6,000 units MoWeFr@17 SC Last administered on 08/20 18:23; Admin Dose 6,000 UNITS; Start 08/02/16 at 17:00 Linagliptin (Tradjenta) 5 mg DAILY PO Last administered on 08/20/16 08:42; Admin Dose 5 MG; Start 08/04/16 at 20:00 Salmeterol Xinafoate/ Fluticasone (Advair 250/50 Diskus) 1 inh BID INH Last administered on 08/22/16 10:24; Admin Dose 1 INH; Start 08/08/16 at 11:00 Montelukast Sodium (Singulair) 10 mg HS PO Last administered on 08/20/16 20:47 ; Admin Dose 10 MG; Start 08/08/16 at 21:00 Tiotropium [place] (Spiriva) 1 inh DAILY INH Last administered on 08/22/16 09: 00; Admin Dose 1 INH; Start 08/08/16 at 11:00 Miscellaneous Information 1 ea NOTE XX ; Start 08/13/16 at 17:30 Glucose (Glutose) 15 gm Q15M PRN PO DECREASED GLUCOSE; Start 08/13/16 at 17:30 Glucose (Glutose) 22.5 gm Q15M PRN PO DECREASED GLUCOSE; Start 08/13/16 at 17:30 Dextrose (D50w Syringe) 25 ml Q15M PRN IV DECREASED GLUCOSE; Start 08/13/16 at 17:30 Dextrose (D50w Syringe) 50 ml Q15M PRN IV DECREASED GLUCOSE; Start 08/13/16 at 17:30 Glucagon (Glucagen) 1 mg Q15M PRN IM DECREASED GLUCOSE; Start 08/13/16 at 17:30 Glucose 15 gm 15 gm Q15M PRN BUCCAL DECREASED GLUCOSE; Start 08/13/16 at 17:30 Vancomycin HCl (Vancocin) 250 ml @ 125 mls/hr Q96H IVPB Last administered on 10:27; Admin Dose 125 MLS/HR; Start 08/16/16 at 10:00 Apixaban (Eliquis) 5 mg BID PO Last administered on 08/20/16 20:47; Admin Dose 5 MG; Start 08/17/16 at 21:00 Amikacin Sulfate (Amikacin Iv Per Pharmacy) AMIKACIN PER PHARMACY NOTE XX ; Start 08/18/16 at 16:30 Metoprolol Tartrate (Lopressor) 50 mg BID PO Last administered on 08/20/16 20: 49; Admin Dose 50 MG; Start 08/19/16 at 09:00 Phenol (Cepastat Lozenge) 1 lozenge Q1H PRN MT SORE THROAT Last administered on 08/19/16 18:56; Admin Dose 1 LOZENGE; Start 08/19/16 at 16:30 Diagnostic Test (Pha) (Accu-Chek) 1 ea 02 XX Last administered on 08/22/16 02: 00; Admin Dose 1 EA; Start 08/20/16 at 02:00 Nystatin 1 applic 1 applic BID TOP Last administered on 08/22/16 10:24; Admin Dose 1 APPLIC; Start 08/19/16 at 21:00 Dextrose/Sodium Chloride (D5-1/2ns) 1,000 ml @ 40 mls/hr Q24H IV Last administered on 08/21/16 17:32; Admin Dose 40 MLS/HR; Start 08/20/16 at 13:00 Digoxin (Digoxin) 125 mcg DAILY@13 IV Last administered on 08/22/16 13:42; Admin Dose 125 MCG; Start 08/20/16 at 13:03 Diltiazem HCl 10 mg 10 mg Q4 PRN IV HR>120 Last administered on 08/22/16 07:52 ; Admin Dose 10 MG; Start 08/20/16 at 18:30 Fluconazole/ Sodium Chloride (Diflucan 100 Mg/ NS (Pmx)) 50 ml @ 50 mls/hr Q24H IVPB Last administered on 08/22/16 00:11; Admin Dose 50 MLS/HR; Start at 21:00 Nystatin (Nystatin Susp) 5 ml QID PO ; Start 08/21/16 at 21:00 Lorazepam (Ativan) 1 mg Q2 PRN IV ANXIETY Last administered on 08/22/16 03:03 ; Admin Dose 1 MG; Start 08/21/16 at 21:00 DAT OLSON MD Aug 22, 2016 14:07
--- NOTE | 2016-08-22 15:01 | CONS ---
Date/Time of Note Date/Time of Note DATE: 08/22/16 TIME: 14:59 Assessment/Plan Assessment/Plan Additional Assessment/Plan Assessment recommendations; next 1. Patient admitted with acute renal failure not requiring hemodialysis. 2. Bilateral pneumonia. 3. Recurrent right pleural effusion, status post thoracentesis 2. 4. History of hypertension diabetes. 5. History of COPD. 6. Atrial fibrillation. Continue current treatment. I did have a detailed discussion the patient's son at bedside and answered all his questions. Consultation Date/Type/Reason Admit Date/Time Jul 31, 2016 at 19:59 Initial Consult Date 08/06/16 Type of Consultation: Pulmonary Referring Provider: LALA ORO 24 HR Interval Summary Free Text/Dictation Patient complaining of increased shortness of breath. Awaiting hemodialysis today. Denies any chest pain, cough. General exam; elderly lady, awake alert currently in no distress. Exam/Review of Systems Vital Signs Vitals Vital Signs Date Time Temp Pulse Resp B/P Pulse Ox O2 Delivery O2 Flow Rate FiO2 08/22/16 13:38 88 26 93 Venti Mask 15.0 50 08/22/16 11:16 99.2 138/48 Intake and Output 08/21/16 08/21/16 08/22/16 15:00 23:00 07:00 Intake Total 300 ml 0 ml Output Total 700 ml Balance -400 ml 0 ml Exam HEENT exam is; supple neck, positive JVD. No lymphadenopathy. Midline trachea. No thyromegaly. Patient is edentulous. Chest exam; diminished breath sounds throughout. S1-S2 audible, irregular rhythm. No murmurs. Abdomen exam is; soft, no organomegaly. Nontender. Bowel sounds audible. Extremity exam; no peripheral edema. Patient does have ecchymosis involving right upper extremity. TEACHING MANAGER exam is; no focal deficit. Results Result Diagram: 08/21/16 0555 08/21/16 0555 Results 24 hrs Laboratory Tests Test 08/21/16 17:29 08/21/16 21:58 08/22/16 02:50 08/22/16 07:25 Bedside Glucose 158 169 183 165 Test 08/22/16 11:42 Bedside Glucose 169 Medications Medications Current Medications Atorvastatin Calcium (Lipitor) 40 mg HS PO Last administered on 08/20/16t 20:47 ; Admin Dose 40 MG; Start 08/01/16 at 21:00 Calcitriol (Rocaltrol) 0.25 mcg DAILY PO Last administered on 08/20/16 08:40; Admin Dose 0.25 MCG; Start 08/01/16 at 09:00 Calcium/Vitamin D (Oyster Shell/ Vit-D (500/200)) 1 tab BID PO Last administered on 08/20/16 20:47; Admin Dose 1 TAB; Start 08/01/16 at 09:00 Hydralazine HCl (Apresoline) 50 mg Q8 PO Last administered on 08/20/16 06:01; Admin Dose 50 MG; Start 08/01/16 at 06:00 Paroxetine HCl (Paxil) 10 mg DAILY PO Last administered on 08/20/16 08:42; Admin Dose 10 MG; Start 08/01/16 at 09:00 Acetaminophen (Tylenol Tab) 650 mg Q4H PRN PO PAIN AND OR ELEVATED TEMP Last administered on 08/19/16 08:55; Admin Dose 650 MG; Start 08/01/16 at 00:30 Hydralazine HCl (Apresoline) 20 mg Q6H PRN IV ELEVATED BLOOD PRESSURE Last administered on 08/09/16 03:50; Admin Dose 20 MG; Start 08/01/16 at 00:30 Guaifenesin/ Dextromethorphan (Robitussin Dm Liquid Cup) 10 ml Q4H PRN PO COUGH Last administered on 08/20/16 21:07; Admin Dose 10 ML; Start 08/01/16 at 00:30 Epoetin [place]aden (Epogen (Esrd)) 6,000 units MoWeFr@17 SC Last administered on 08/20 18:23; Admin Dose 6,000 UNITS; Start 08/02/16 at 17:00 Linagliptin (Tradjenta) 5 mg DAILY PO Last administered on 08/20/16 08:42; Admin Dose 5 MG; Start 08/04/16 at 20:00 Salmeterol Xinafoate/ Fluticasone (Advair 250/50 Diskus) 1 inh BID INH Last administered on 08/22/16 10:24; Admin Dose 1 INH; Start 08/08/16 at 11:00 Montelukast Sodium (Singulair) 10 mg HS PO Last administered on 08/20/16 20:47 ; Admin Dose 10 MG; Start 08/08/16 at 21:00 Tiotropium [place] (Spiriva) 1 inh DAILY INH Last administered on 08/22/16 09: 00; Admin Dose 1 INH; Start 08/08/16 at 11:00 Miscellaneous Information 1 ea NOTE XX ; Start 08/13/16 at 17:30 Glucose (Glutose) 15 gm Q15M PRN PO DECREASED GLUCOSE; Start 08/13/16 at 17:30 Glucose (Glutose) 22.5 gm Q15M PRN PO DECREASED GLUCOSE; Start 08/13/16 at 17:30 Dextrose (D50w Syringe) 25 ml Q15M PRN IV DECREASED GLUCOSE; Start 08/13/16 at 17:30 Dextrose (D50w Syringe) 50 ml Q15M PRN IV DECREASED GLUCOSE; Start 08/13/16 at 17:30 Glucagon (Glucagen) 1 mg Q15M PRN IM DECREASED GLUCOSE; Start 08/13/16 at 17:30 Glucose 15 gm 15 gm Q15M PRN BUCCAL DECREASED GLUCOSE; Start 08/13/16 at 17:30 Vancomycin HCl (Vancocin) 250 ml @ 125 mls/hr Q96H IVPB Last administered on 10:27; Admin Dose 125 MLS/HR; Start 08/16/16 at 10:00 Apixaban (Eliquis) 5 mg BID PO Last administered on 08/20/16 20:47; Admin Dose 5 MG; Start 08/17/16 at 21:00 Amikacin Sulfate (Amikacin Iv Per Pharmacy) AMIKACIN PER PHARMACY NOTE XX ; Start 08/18/16 at 16:30 Metoprolol Tartrate (Lopressor) 50 mg BID PO Last administered on 08/20/16 20: 49; Admin Dose 50 MG; Start 08/19/16 at 09:00 Phenol (Cepastat Lozenge) 1 lozenge Q1H PRN MT SORE THROAT Last administered on 08/19/16 18:56; Admin Dose 1 LOZENGE; Start 08/19/16 at 16:30 Diagnostic Test (Pha) (Accu-Chek) 1 ea 02 XX Last administered on 08/22/16 02: 00; Admin Dose 1 EA; Start 08/20/16 at 02:00 Nystatin 1 applic 1 applic BID TOP Last administered on 08/22/16 10:24; Admin Dose 1 APPLIC; Start 08/19/16 at 21:00 Dextrose/Sodium Chloride (D5-1/2ns) 1,000 ml @ 40 mls/hr Q24H IV Last administered on 08/21/16 17:32; Admin Dose 40 MLS/HR; Start 08/20/16 at 13:00 Digoxin (Digoxin) 125 mcg DAILY@13 IV Last administered on 08/22/16 13:42; Admin Dose 125 MCG; Start 08/20/16 at 13:03 Diltiazem HCl 10 mg 10 mg Q4 PRN IV HR>120 Last administered on 08/22/16 07:52 ; Admin Dose 10 MG; Start 08/20/16 at 18:30 Fluconazole/ Sodium Chloride (Diflucan 100 Mg/ NS (Pmx)) 50 ml @ 50 mls/hr Q24H IVPB Last administered on 08/22/16 00:11; Admin Dose 50 MLS/HR; Start at 21:00 Nystatin (Nystatin Susp) 5 ml QID PO ; Start 08/21/16 at 21:00 Lorazepam (Ativan) 1 mg Q2 PRN IV ANXIETY Last administered on 08/22/16 03:03 ; Admin Dose 1 MG; Start 08/21/16 at 21:00 KOFI HUERTA Aug 22, 2016 15:01
[2016-08-22] MEDS ORDERED: ALBUMIN HUMAN 25% 100 ML IV STA (16:39)
--- NOTE | 2016-08-22 20:19 | PN ---
DATE: 08/22/2016 SUBJECTIVE: No events overnight. The patient is lying comfortably in bed. She was started on BiPAP this afternoon. MICROBIOLOGY: Blood cultures since 08/19/2016 negative. ANTIMICROBIALS: 1. Diflucan. 2. Vancomycin. 3. Amikacin. PHYSICAL EXAMINATION: GENERAL: Chronically ill-appearing, elderly woman who is lying comfortably in bed. HEENT: Head atraumatic, normocephalic. Sclerae anicteric. Buccal mucosa dry. NECK: Supple. CHEST: Rise symmetrical. Breath sounds with bilateral rhonchi. HEART: S1, S2. ABDOMEN: Soft. Bowel tones present. EXTREMITIES: No cyanosis. ASSESSMENT: 1. Acute on chronic respiratory failure. 2. Bilateral pneumonia. 3. Oropharyngeal candidiasis. 4. Dysphagia secondary to above. 5. Status post bacteremia. 6. End-stage renal disease, hemodialysis dependent, status post PermCath placed on 08/05/2016. PLAN: The patient remains unchanged. She had multiple thoracenteses. Still requiring BiPAP. Continue present care, complete antibiotics. Dictated By: NAHUN DOWNEY LAY OUT FORMER for GURINDER GOODMAN MD NI/NTS Conf#: [id number] DID#: [id number] CC: ETELVINA CALLAHAN MD;*EndCC* MTDD
[2016-08-22] MEDS: MONTELUKAST 10 MG TAB PO SCH (21:00)
[2016-08-22] MEDS: ATORVASTATIN 40 MG TAB PO SCH (21:00)
[2016-08-23] VITALS (21 sets, daily range): BP systolic 106–156; BP diastolic 51–78; PULSE 62–118; RESP 18–27
[2016-08-23] MEDS: ALBUTEROL/IPRATROPIUM (NEB) 3 ML AMP HHN SCH ×4 (01:22→20:24)
[2016-08-23] MEDS: ACCUCHECK AT 2AM (Patients on SS coverage) XX SCH (02:00)
[2016-08-23] MEDS: DEXTROSE 5%-0.45% NACL 1,000 ML IV SCH (04:48)
[2016-08-23] MEDS: FUROSEMIDE 40 MG INJ IV SCH ×2 (05:50→18:00)
[2016-08-23 06:46] LABS: ADD SCAN DIFF NO
[2016-08-23 06:49] LABS: ABNORMAL IP MESSAGE 1; BASOPHILS % 0.1 % (0.0-2.0); EOSINOPHILS % 0.2 % (0.0-7.0); HEMATOCRIT 25.6 % (37.0-47.0); HEMOGLOBIN 7.6 g/dl (12.0-16.0); LYMPHOCYTES # 0.3 10^3/ul (0.8-2.9); LYMPHOCYTES % 2.9 % (15.0-51.0); MEAN CORPUSCULAR HGB CONC 29.7 g/dl (32.0-37.0); MEAN CORPUSCULAR VOLUME 94.5 fl (82.0-101.0); MEAN PLATELET VOLUME 11.1 fl (7.4-10.4); MONOCYTE # 0.3 10^3/ul (0.3-0.9); NEUTROPHILS % 93.1 % (39.0-77.0); PLATELET COUNT 119 10^3/UL (140-415); RED BLOOD COUNT 2.71 10^6/ul (4.20-5.40); RED CELL DISTRIBUTION WIDTH 14.9 % (11.5-14.5); WHITE BLOOD COUNT 10.7 10^3/ul (4.8-10.8)
[2016-08-23 07:09] LABS: ALBUMIN 2.5 g/dl (3.3-4.9); BILIRUBIN,INDIRECT 0.3 mg/dl (0-1.1); BILIRUBIN,TOTAL 0.3 mg/dl (0.2-1.3); CALCIUM 7.4 mg/dl (8.4-10.2); CREATININE 3.57 mg/dl (0.44-1.00)
[2016-08-23] MEDS: Insulin NOVOLOG SS MILD Algorithm (SS with meals and bedtime) SC SCH ×4 (07:25→21:00)
[2016-08-23] MEDS: CALCIUM ACETATE 667 MG CAP PO SCH ×3 (07:46→17:08)
[2016-08-23] MEDS: CLOTRIMAZOLE 10 MG TROCHE MT SCH ×5 (07:47→21:00)
[2016-08-23] MEDS: METOPROLOL 25 MG TAB PO SCH ×2 (07:47→21:00)
[2016-08-23] MEDS: APIXABAN 5 MG TABLET PO SCH ×2 (07:47→21:00)
[2016-08-23] MEDS: NYSTATIN SUSP 5 ML CUP PO SCH ×4 (07:47→21:00)
[2016-08-23] MEDS: CALCIUM/VITAMIN D (500/200) TAB PO SCH ×2 (07:47→21:00)
[2016-08-23] MEDS: LINAGLIPTIN 5 MG TABLET PO SCH (07:48)
[2016-08-23] MEDS: PAROXETINE 10 MG TAB PO SCH (07:48)
[2016-08-23] MEDS: CALCITRIOL 0.25 MCG CAP PO SCH (07:48)
[2016-08-23] MEDS: NYSTATIN 30 GM POWDER BTL TOP SCH ×2 (07:48→21:47)
[2016-08-23] MEDS: TIOTROPIUM 18 MCG CAPSULE INHA DEV INH SCH (09:00)
[2016-08-23] MEDS: SALMETEROL/FLUTICASONE 250/50 INHA INH SCH ×2 (09:00→21:20)
[2016-08-23] MEDS: DIGOXIN 500 MCG INJ IV SCH ×2 (13:00→15:52)
--- NOTE | 2016-08-23 13:36 | CONS ---
Date/Time of Note Date/Time of Note DATE: 08/23/16 TIME: 13:34 Consult Date/Type/Reason Admit Date/Time Jul 31, 2016 at 19:59 Initial Consult Date 08/06/16 Type of Consultation: Pulmonary Ordering Provider: LALA ORO Subjective Patient remains dyspneic still requiring BiPAP Significant desaturation off noninvasive positive pressure ventilation Awake alert and oriented Objective Vital Signs Date Time Temp Pulse Resp B/P Pulse Ox O2 Delivery O2 Flow Rate FiO2 08/23/16 12:44 96 15.0 50 08/23/16 12:14 101 08/23/16 11:20 99.3 27 152/57 08/22/16 13:38 Venti Mask Intake and Output 08/22/16 08/22/16 08/23/16 15:00 23:00 07:00 Intake Total 1800 ml 1090 ml Output Total 950 ml Balance 850 ml 1090 ml Exam GENERAL: Elderly lady on BiPAP no acute distress VITAL SIGNS: per chart NECK: Supple. No JVD or lymphadenopathy. CARDIAC EXAM: S1, S2. No added sounds or murmurs. CHEST: Diminished air entry bilaterally ABDOMEN: Soft, nontender. No guarding or rebound. EXTREMITIES: No cyanosis, clubbing edema +1 NEUROLOGIC: Generalized weakness. No focal deficits. Results/Medications Result Diagram: 08/23/16 0545 08/23/16 0545 Results 24 hrs Laboratory Tests Test 08/22/16 18:09 08/22/16 20:52 08/23/16 05:45 08/23/16 07:43 Bedside Glucose 147 125 110 White Blood Count 10.7 # Red Blood Count 2.71 L Hemoglobin 7.6 L Hematocrit 25.6 L Mean Corpuscular Volume 94.5 Mean Corpuscular Hemoglobin 28.0 L Mean Corpuscular Hemoglobin Concent 29.7 L Red Cell Distribution Width 14.9 H Platelet Count 119 #L Mean Platelet Volume 11.1 H Neutrophils % 93.1 H Lymphocytes % 2.9 L Monocytes % 3.0 Eosinophils % 0.2 Basophils % 0.1 Nucleated Red Blood Cells % 0.0 Neutrophils # 10.0 H Lymphocytes # 0.3 L Monocytes # 0.3 Eosinophils # 0.0 Basophils # 0.0 Nucleated Red Blood Cells # 0.0 Sodium Level 135 Potassium Level 3.0 L Chloride Level 101 Carbon Dioxide Level 28 Anion Gap 9 # Blood Urea Nitrogen 31 H Creatinine 3.57 H Glucose Level 99 Calcium Level 7.4 L Total Bilirubin 0.3 Direct Bilirubin 0.00 Indirect Bilirubin 0.3 Aspartate Amino Transf (AST/SGOT) 16 Alanine Aminotransferase (ALT/SGPT) 26 Alkaline Phosphatase 107 Total Protein 5.0 L Albumin 2.5 L Globulin 2.50 Albumin/Globulin Ratio 1.00 Test 08/23/16 11:34 Bedside Glucose 110 Medications Current Medications Atorvastatin Calcium (Lipitor) 40 mg HS PO Last administered on 08/20/16 20:47 ; Admin Dose 40 MG; Start 08/01/16 at 21:00 Calcitriol (Rocaltrol) 0.25 mcg DAILY PO Last administered on 08/20/16 08:40; Admin Dose 0.25 MCG; Start 08/01/16 at 09:00 Calcium/Vitamin D (Oyster Shell/ Vit-D (500/200)) 1 tab BID PO Last administered on 08/20/16 20:47; Admin Dose 1 TAB; Start 08/01/16 at 09:00 Hydralazine HCl (Apresoline) 50 mg Q8 PO Last administered on 08/20/16 06:01; Admin Dose 50 MG; Start 08/01/16 at 06:00 Paroxetine HCl (Paxil) 10 mg DAILY PO Last administered on 08/20/16 08:42; Admin Dose 10 MG; Start 08/01/16 at 09:00 Acetaminophen (Tylenol Tab) 650 mg Q4H PRN PO PAIN AND OR ELEVATED TEMP Last administered on 08/19/16 08:55; Admin Dose 650 MG; Start 08/01/16 at 00:30 Hydralazine HCl (Apresoline) 20 mg Q6H PRN IV ELEVATED BLOOD PRESSURE Last administered on 08/09/16 03:50; Admin Dose 20 MG; Start 08/01/16 at 00:30 Guaifenesin/ Dextromethorphan (Robitussin Dm Liquid Cup) 10 ml Q4H PRN PO COUGH Last administered on 08/20/16 21:07; Admin Dose 10 ML; Start 08/01/16 at 00:30 Epoetin Braden (Epogen (Esrd)) 6,000 units MoWeFr@17 SC Last administered on 08/20 18:23; Admin Dose 6,000 UNITS; Start 08/02/16 at 17:00 Linagliptin (Tradjenta) 5 mg DAILY PO Last administered on 08/20/16 08:42; Admin Dose 5 MG; Start 08/04/16 at 20:00 Salmeterol Xinafoate/ Fluticasone (Advair 250/50 Diskus) 1 inh BID INH Last administered on 08/22/16 20:49; Admin Dose 1 INH; Start 08/08/16 at 11:00 Montelukast Sodium (Singulair) 10 mg HS PO Last administered on 08/20/16 20:47 ; Admin Dose 10 MG; Start 08/08/16 at 21:00 Tiotropium [place] (Spiriva) 1 inh DAILY INH Last administered on 08/22/16 09: 00; Admin Dose 1 INH; Start 08/08/16 at 11:00 Miscellaneous Information 1 ea NOTE XX ; Start 08/13/16 at 17:30 Glucose (Glutose) 15 gm Q15M PRN PO DECREASED GLUCOSE; Start 08/13/16 at 17:30 Glucose (Glutose) 22.5 gm Q15M PRN PO DECREASED GLUCOSE; Start 08/13/16 at 17:30 Dextrose (D50w Syringe) 25 ml Q15M PRN IV DECREASED GLUCOSE; Start 08/13/16 at 17:30 Dextrose (D50w Syringe) 50 ml Q15M PRN IV DECREASED GLUCOSE; Start 08/13/16 at 17:30 Glucagon (Glucagen) 1 mg Q15M PRN IM DECREASED GLUCOSE; Start 08/13/16 at 17:30 Glucose 15 gm 15 gm Q15M PRN BUCCAL DECREASED GLUCOSE; Start 08/13/16 at 17:30 Vancomycin HCl (Vancocin) 250 ml @ 125 mls/hr Q96H IVPB Last administered on 10:27; Admin Dose 125 MLS/HR; Start 08/16/16 at 10:00 Apixaban (Eliquis) 5 mg BID PO Last administered on 08/20/16 20:47; Admin Dose 5 MG; Start 08/17/16 at 21:00 Amikacin Sulfate (Amikacin Iv Per Pharmacy) AMIKACIN PER PHARMACY NOTE XX ; Start 08/18/16 at 16:30 Metoprolol Tartrate (Lopressor) 50 mg BID PO Last administered on 08/20/16 20: 49; Admin Dose 50 MG; Start 08/19/16 at 09:00 Phenol (Cepastat Lozenge) 1 lozenge Q1H PRN MT SORE THROAT Last administered on 08/19/16 18:56; Admin Dose 1 LOZENGE; Start 08/19/16 at 16:30 Diagnostic Test (Pha) (Accu-Chek) 1 ea 02 XX Last administered on 08/22/16 02: 00; Admin Dose 1 EA; Start 08/20/16 at 02:00 Nystatin 1 applic 1 applic BID TOP Last administered on 08/22/16 20:49; Admin Dose 1 APPLIC; Start 08/19/16 at 21:00 Dextrose/Sodium Chloride (D5-1/2ns) 1,000 ml @ 40 mls/hr Q24H IV Last administered on 08/23/16 04:48; Admin Dose 40 MLS/HR; Start 08/20/16 at 13:00 Digoxin (Digoxin) 125 mcg DAILY@13 IV Last administered on 08/22/16 13:42; Admin Dose 125 MCG; Start 08/20/16 at 13:03 Diltiazem HCl 10 mg 10 mg Q4 PRN IV HR>120 Last administered on 08/22/16 16:37 ; Admin Dose 10 MG; Start 08/20/16 at 18:30 Fluconazole/ Sodium Chloride (Diflucan 100 Mg/ NS (Pmx)) 50 ml @ 50 mls/hr Q24H IVPB Last administered on 08/22/16 23:01; Admin Dose 50 MLS/HR; Start at 21:00 Nystatin (Nystatin Susp) 5 ml QID PO Last administered on 08/22/16 23:02; Admin Dose 5 ML; Start 08/21/16 at 21:00 Lorazepam (Ativan) 1 mg Q2 PRN IV ANXIETY Last administered on 08/22/16 03:03 ; Admin Dose 1 MG; Start 08/21/16 at 21:00 Miscellaneous Information (*Rx Drug Level Order Reminder*) 1 ONCE ONCE XX ; Start 08/24/16 at 09:00; Stop 08/24/16 at 09:01 Assessment/Plan Chief Complaint/Hosp Course Assessment 1. Hypoxemic respiratory failure possibly secondary to aspiration pneumonia versus healthcare associated pneumonia. Ongoing pulmonary edema. Pleural effusion status post thoracentesis 2 2. Status post septic shock 3. Resolving encephalopathy 4. End-stage renal failure on hemodialysis 5. Dysphagia Plan 1. Transfer to ICU 2. Continue BiPAP 3. Continue hemodialysis as tolerated with volume removal 4. Aspiration precautions Disposition Continue current ICU care Patient remains DO NOT INTUBATE Problems: PATR[facility] HORVATH [facility] Aug 23, 2016 13:36
--- NOTE | 2016-08-23 14:15 | CONS ---
Date/Time of Note Date/Time of Note DATE: 08/23/16 TIME: 14:13 Consult Date/Type/Reason Admit Date/Time Jul 31, 2016 at 19:59 Initial Consult Date 08/06/16 Type of Consultation: Card and Vascular Intervention Ordering Provider: LALA ORO Objective Vital Signs Date Time Temp Pulse Resp B/P Pulse Ox O2 Delivery O2 Flow Rate FiO2 08/23/16 13:20 33 82 100 08/23/16 12:44 15.0 08/23/16 12:14 101 08/23/16 11:20 99.3 152/57 08/22/16 13:38 Venti Mask Intake and Output 08/22/16 08/22/16 08/23/16 15:00 23:00 07:00 Intake Total 1800 ml 1090 ml Output Total 950 ml Balance 850 ml 1090 ml Results/Medications Result Diagram: 08/23/16 0545 08/23/16 0545 Results 24 hrs Laboratory Tests Test 08/22/16 18:09 08/22/16 20:52 08/23/16 05:45 08/23/16 07:43 Bedside Glucose 147 125 110 White Blood Count 10.7 # Red Blood Count 2.71 L Hemoglobin 7.6 L Hematocrit 25.6 L Mean Corpuscular Volume 94.5 Mean Corpuscular Hemoglobin 28.0 L Mean Corpuscular Hemoglobin Concent 29.7 L Red Cell Distribution Width 14.9 H Platelet Count 119 #L Mean Platelet Volume 11.1 H Neutrophils % 93.1 H Lymphocytes % 2.9 L Monocytes % 3.0 Eosinophils % 0.2 Basophils % 0.1 Nucleated Red Blood Cells % 0.0 Neutrophils # 10.0 H Lymphocytes # 0.3 L Monocytes # 0.3 Eosinophils # 0.0 Basophils # 0.0 Nucleated Red Blood Cells # 0.0 Sodium Level 135 Potassium Level 3.0 L Chloride Level 101 Carbon Dioxide Level 28 Anion Gap 9 # Blood Urea Nitrogen 31 H Creatinine 3.57 H Glucose Level 99 Calcium Level 7.4 L Total Bilirubin 0.3 Direct Bilirubin 0.00 Indirect Bilirubin 0.3 Aspartate Amino Transf (AST/SGOT) 16 Alanine Aminotransferase (ALT/SGPT) 26 Alkaline Phosphatase 107 Total Protein 5.0 L Albumin 2.5 L Globulin 2.50 Albumin/Globulin Ratio 1.00 Test 08/23/16 11:34 Bedside Glucose 110 Medications Current Medications Atorvastatin Calcium (Lipitor) 40 mg HS PO Last administered on 08/20/16 20:47 ; Admin Dose 40 MG; Start 08/01/16 at 21:00 Calcitriol (Rocaltrol) 0.25 mcg DAILY PO Last administered on 08/20/16 08:40; Admin Dose 0.25 MCG; Start 08/01/16 at 09:00 Calcium/Vitamin D (Oyster Shell/ Vit-D (500/200)) 1 tab BID PO Last administered on 08/20/16 20:47; Admin Dose 1 TAB; Start 08/01/16 at 09:00 Hydralazine HCl (Apresoline) 50 mg Q8 PO Last administered on 08/20/16 06:01; Admin Dose 50 MG; Start 08/01/16 at 06:00 Paroxetine HCl (Paxil) 10 mg DAILY PO Last administered on 08/20/16 08:42; Admin Dose 10 MG; Start 08/01/16 at 09:00 Acetaminophen (Tylenol Tab) 650 mg Q4H PRN PO PAIN AND OR ELEVATED TEMP Last administered on 08/19/16 08:55; Admin Dose 650 MG; Start 08/01/16 at 00:30 Hydralazine HCl (Apresoline) 20 mg Q6H PRN IV ELEVATED BLOOD PRESSURE Last administered on 08/09/16 03:50; Admin Dose 20 MG; Start 08/01/16 at 00:30 Guaifenesin/ Dextromethorphan (Robitussin Dm Liquid Cup) 10 ml Q4H PRN PO COUGH Last administered on 08/20/16 21:07; Admin Dose 10 ML; Start 08/01/16 at 00:30 Epoetin [place]aden (Epogen (Esrd)) 6,000 units MoWeFr@17 SC Last administered on 08/20 18:23; Admin Dose 6,000 UNITS; Start 08/02/16 at 17:00 Linagliptin (Tradjenta) 5 mg DAILY PO Last administered on 08/20/16 08:42; Admin Dose 5 MG; Start 08/04/16 at 20:00 Salmeterol Xinafoate/ Fluticasone (Advair 250/50 Diskus) 1 inh BID INH Last administered on 08/22/16 20:49; Admin Dose 1 INH; Start 08/08/16 at 11:00 Montelukast Sodium (Singulair) 10 mg HS PO Last administered on 08/20/16 20:47 ; Admin Dose 10 MG; Start 08/08/16 at 21:00 Tiotropium [place] (Spiriva) 1 inh DAILY INH Last administered on 08/22/16 09: 00; Admin Dose 1 INH; Start 08/08/16 at 11:00 Miscellaneous Information 1 ea NOTE XX ; Start 08/13/16 at 17:30 Glucose (Glutose) 15 gm Q15M PRN PO DECREASED GLUCOSE; Start 08/13/16 at 17:30 Glucose (Glutose) 22.5 gm Q15M PRN PO DECREASED GLUCOSE; Start 08/13/16 at 17:30 Dextrose (D50w Syringe) 25 ml Q15M PRN IV DECREASED GLUCOSE; Start 08/13/16 at 17:30 Dextrose (D50w Syringe) 50 ml Q15M PRN IV DECREASED GLUCOSE; Start 08/13/16 at 17:30 Glucagon (Glucagen) 1 mg Q15M PRN IM DECREASED GLUCOSE; Start 08/13/16 at 17:30 Glucose 15 gm 15 gm Q15M PRN BUCCAL DECREASED GLUCOSE; Start 08/13/16 at 17:30 Vancomycin HCl (Vancocin) 250 ml @ 125 mls/hr Q96H IVPB Last administered on 10:27; Admin Dose 125 MLS/HR; Start 08/16/16 at 10:00 Apixaban (Eliquis) 5 mg BID PO Last administered on 08/20/16 20:47; Admin Dose 5 MG; Start 08/17/16 at 21:00 Amikacin Sulfate (Amikacin Iv Per Pharmacy) AMIKACIN PER PHARMACY NOTE XX ; Start 08/18/16 at 16:30 Metoprolol Tartrate (Lopressor) 50 mg BID PO Last administered on 08/20/16 20: 49; Admin Dose 50 MG; Start 08/19/16 at 09:00 Phenol (Cepastat Lozenge) 1 lozenge Q1H PRN MT SORE THROAT Last administered on 08/19/16 18:56; Admin Dose 1 LOZENGE; Start 08/19/16 at 16:30 Diagnostic Test (Pha) (Accu-Chek) 1 ea 02 XX Last administered on 08/22/16 02: 00; Admin Dose 1 EA; Start 08/20/16 at 02:00 Nystatin 1 applic 1 applic BID TOP Last administered on 08/22/16 20:49; Admin Dose 1 APPLIC; Start 08/19/16 at 21:00 Dextrose/Sodium Chloride (D5-1/2ns) 1,000 ml @ 40 mls/hr Q24H IV Last administered on 08/23/16 04:48; Admin Dose 40 MLS/HR; Start 08/20/16 at 13:00 Digoxin (Digoxin) 125 mcg DAILY@13 IV Last administered on 08/22/16 13:42; Admin Dose 125 MCG; Start 08/20/16 at 13:03 Diltiazem HCl 10 mg 10 mg Q4 PRN IV HR>120 Last administered on 08/22/16 16:37 ; Admin Dose 10 MG; Start 08/20/16 at 18:30 Fluconazole/ Sodium Chloride (Diflucan 100 Mg/ NS (Pmx)) 50 ml @ 50 mls/hr Q24H IVPB Last administered on 08/22/16 23:01; Admin Dose 50 MLS/HR; Start at 21:00 Nystatin (Nystatin Susp) 5 ml QID PO Last administered on 08/22/16 23:02; Admin Dose 5 ML; Start 08/21/16 at 21:00 Lorazepam (Ativan) 1 mg Q2 PRN IV ANXIETY Last administered on 08/22/16 03:03 ; Admin Dose 1 MG; Start 08/21/16 at 21:00 Miscellaneous Information (*Rx Drug Level Order Reminder*) 1 ONCE ONCE XX ; Start 08/24/16 at 09:00; Stop 08/24/16 at 09:01 Assessment/Plan Chief Complaint/Hosp Course Patient is 85 year old F with PMH of HTN, HLD, CKD now presentezd with SOB and ESRD was started on HD. She already has been planning for Stage IV CKD and had fistula done already. Pt does have some SOB. significant Leg edema. Likely realted to CKD and Diastolic HF. LVEF is nl. Problems: Additional Assessment/Plan Pt is on Bipap still sleepy pulantonia says pt desats off bipap and plan to tx out ot ICU Pt is in sinus rhythm now On Amio and Cardizem and BB If needed We can start her on Cardizem drip 5mg if remains NPO and will need rate control On eliques had Candidiasis post NGT last time. will /fu SIERRA GARCIA MD Aug 23, 2016 14:15
--- NOTE | 2016-08-23 15:30 | PN ---
BRYANT PERALTA 08/23/16 1529: Date/Time of Note Date/Time of Note DATE: 08/23/16 TIME: 15:20 Assessment/Plan VTE Prophylaxis VTE Prophylaxis Intervention: SCD's Lines/Catheters IV C[facility]ter Type (from [facility] Peripheral IV Urinary Cath still in place: No Assessment/Plan Chief Complaint/Hosp Course Assessment and plan: -Acute respiratory insufficiency secondary to pneumonia and pulmonary edema. -Sepsis with bacteremia. Dr. Eric is following in infection disease consultation. Continue antibiotics per ID. - Right-sided pneumonia. - A-fib with RVR, continue Cardizem, patient is followed by Dr. Stuart in cardiology. - COPD exacerbation, continue breathing treatment. Dr. Natarajan is following in pulmonology consultation - End-stage renal disease stage V. Dr. Leon is following in nephrology consultation. Continue to hemodialysis via right femoral hemodialysis catheter. - Pulmonary edema. Continue to remove fluids with hemodialysis. -Pleural effusions, status post thoracentesis 2. - Anemia of chronic kidney disease. Continue Epogen. - Diabetes mellitus type [address] Garcia is following an endocrinology consultation. - Hypertension, continue Norvasc. -Left upper extremity AV fistula, non-matured -Status post right hemodialysis non-tunneled catheter placement by Dr. Manning on 08/03. S/p R IJ tunneled hemodialysis catheter placement. Further recommendations based on clinical course. Plan of care discussed with Dr. Callahan Problems: Subjective 24 Hr Interval Summary Free Text/Dictation Patient's complains of shortness of breath, with diminished air entry and wheezes, desaturated, was placed on BiPAP with some improvement in oxygen saturation. Patient was not able to tolerate dialysis yesterday due to hypotension according to nursing staff. Today's blood pressure is within normal limits, pending hemodialysis. Exam/Review of Systems Vital Signs Vitals Vital Signs Date Time Temp Pulse Resp B/P Pulse Ox O2 Delivery O2 Flow Rate FiO2 08/23/16 13:20 33 82 100 08/23/16 12:44 15.0 08/23/16 12:14 101 08/23/16 11:20 99.3 152/57 08/22/16 13:38 Venti Mask Intake and Output 08/22/16 08/22/16 08/23/16 15:00 23:00 07:00 Intake Total 1800 ml 1090 ml Output Total 950 ml Balance 850 ml 1090 ml Exam Constitutional: alert, oriented Psych: no complaints Head: atraumatic, normocephalic Eyes: nl conjunctiva ENMT: nl external ears & nose, nl lips & teeth Neck: non-tender, supple Respiratory: Rhonchi bilaterally, diminished air entry bilaterally. Cardiovascular: nl pulses, regular rate and rhythm Gastrointestinal: non-tender, soft Musculoskeletal: nl extremities to inspection Extremities: normal pulses 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: BUSINESS PROCESS ANALYST II-XII intact Additional Comments Left upper extremities with AV fistula with palpable thrill and audible bruit Right IJ permacath Results Result Diagram: 08/23/16 0545 08/23/16 0545 Results 24 hrs Laboratory Tests Test 08/22/16 18:09 08/22/16 20:52 08/23/16 05:45 08/23/16 07:43 Bedside Glucose 147 125 110 White Blood Count 10.7 # Red Blood Count 2.71 L Hemoglobin 7.6 L Hematocrit 25.6 L Mean Corpuscular Volume 94.5 Mean Corpuscular Hemoglobin 28.0 L Mean Corpuscular Hemoglobin Concent 29.7 L Red Cell Distribution Width 14.9 H Platelet Count 119 #L Mean Platelet Volume 11.1 H Neutrophils % 93.1 H Lymphocytes % 2.9 L Monocytes % 3.0 Eosinophils % 0.2 Basophils % 0.1 Nucleated Red Blood Cells % 0.0 Neutrophils # 10.0 H Lymphocytes # 0.3 L Monocytes # 0.3 Eosinophils # 0.0 Basophils # 0.0 Nucleated Red Blood Cells # 0.0 Sodium Level 135 Potassium Level 3.0 L Chloride Level 101 Carbon Dioxide Level 28 Anion Gap 9 # Blood Urea Nitrogen 31 H Creatinine 3.57 H Glucose Level 99 Calcium Level 7.4 L Total Bilirubin 0.3 Direct Bilirubin 0.00 Indirect Bilirubin 0.3 Aspartate Amino Transf (AST/SGOT) 16 Alanine Aminotransferase (ALT/SGPT) 26 Alkaline Phosphatase 107 Total Protein 5.0 L Albumin 2.5 L Globulin 2.50 Albumin/Globulin Ratio 1.00 Test 08/23/16 11:34 Bedside Glucose 110 Medications Medications Current Medications Atorvastatin Calcium (Lipitor) 40 mg HS PO Last administered on 08/20/16t 20:47 ; Admin Dose 40 MG; Start 08/01/16 at 21:00 Calcitriol (Rocaltrol) 0.25 mcg DAILY PO Last administered on 08/20/16 08:40; Admin Dose 0.25 MCG; Start 08/01/16 at 09:00 Calcium/Vitamin D (Oyster Shell/ Vit-D (500/200)) 1 tab BID PO Last administered on 08/20/16 20:47; Admin Dose 1 TAB; Start 08/01/16 at 09:00 Hydralazine HCl (Apresoline) 50 mg Q8 PO Last administered on 08/20/16 06:01; Admin Dose 50 MG; Start 08/01/16 at 06:00 Paroxetine HCl (Paxil) 10 mg DAILY PO Last administered on 08/20/16 08:42; Admin Dose 10 MG; Start 08/01/16 at 09:00 Acetaminophen (Tylenol Tab) 650 mg Q4H PRN PO PAIN AND OR ELEVATED TEMP Last administered on 08/19/16 08:55; Admin Dose 650 MG; Start 08/01/16 at 00:30 Hydralazine HCl (Apresoline) 20 mg Q6H PRN IV ELEVATED BLOOD PRESSURE Last administered on 08/09/16 03:50; Admin Dose 20 MG; Start 08/01/16 at 00:30 Guaifenesin/ Dextromethorphan (Robitussin Dm Liquid Cup) 10 ml Q4H PRN PO COUGH Last administered on 08/20/16 21:07; Admin Dose 10 ML; Start 08/01/16 at 00:30 Epoetin Braden (Epogen (Esrd)) 6,000 units MoWeFr@17 SC Last administered on 08/20 18:23; Admin Dose 6,000 UNITS; Start 08/02/16 at 17:00 Linagliptin (Tradjenta) 5 mg DAILY PO Last administered on 08/20/16 08:42; Admin Dose 5 MG; Start 08/04/16 at 20:00 Salmeterol Xinafoate/ Fluticasone (Advair 250/50 Diskus) 1 inh BID INH Last administered on 08/22/16 20:49; Admin Dose 1 INH; Start 08/08/16 at 11:00 Montelukast Sodium (Singulair) 10 mg HS PO Last administered on 08/20/16 20:47 ; Admin Dose 10 MG; Start 08/08/16 at 21:00 Tiotropium [place] (Spiriva) 1 inh DAILY INH Last administered on 08/22/16 09: 00; Admin Dose 1 INH; Start 08/08/16 at 11:00 Miscellaneous Information 1 ea NOTE XX ; Start 08/13/16 at 17:30 Glucose (Glutose) 15 gm Q15M PRN PO DECREASED GLUCOSE; Start 08/13/16 at 17:30 Glucose (Glutose) 22.5 gm Q15M PRN PO DECREASED GLUCOSE; Start 08/13/16 at 17:30 Dextrose (D50w Syringe) 25 ml Q15M PRN IV DECREASED GLUCOSE; Start 08/13/16 at 17:30 Dextrose (D50w Syringe) 50 ml Q15M PRN IV DECREASED GLUCOSE; Start 08/13/16 at 17:30 Glucagon (Glucagen) 1 mg Q15M PRN IM DECREASED GLUCOSE; Start 08/13/16 at 17:30 Glucose 15 gm 15 gm Q15M PRN BUCCAL DECREASED GLUCOSE; Start 08/13/16 at 17:30 Vancomycin HCl (Vancocin) 250 ml @ 125 mls/hr Q96H IVPB Last administered on 10:27; Admin Dose 125 MLS/HR; Start 08/16/16 at 10:00 Apixaban (Eliquis) 5 mg BID PO Last administered on 08/20/16 20:47; Admin Dose 5 MG; Start 08/17/16 at 21:00 Amikacin Sulfate (Amikacin Iv Per Pharmacy) AMIKACIN PER PHARMACY NOTE XX ; Start 08/18/16 at 16:30 Metoprolol Tartrate (Lopressor) 50 mg BID PO Last administered on 08/20/16 20: 49; Admin Dose 50 MG; Start 08/19/16 at 09:00 Phenol (Cepastat Lozenge) 1 lozenge Q1H PRN MT SORE THROAT Last administered on 08/19/16 18:56; Admin Dose 1 LOZENGE; Start 08/19/16 at 16:30 Diagnostic Test (Pha) (Accu-Chek) 1 ea 02 XX Last administered on 08/22/16 02: 00; Admin Dose 1 EA; Start 08/20/16 at 02:00 Nystatin 1 applic 1 applic BID TOP Last administered on 08/22/16 20:49; Admin Dose 1 APPLIC; Start 08/19/16 at 21:00 Dextrose/Sodium Chloride (D5-1/2ns) 1,000 ml @ 40 mls/hr Q24H IV Last administered on 08/23/16 04:48; Admin Dose 40 MLS/HR; Start 08/20/16 at 13:00 Diltiazem HCl 10 mg 10 mg Q4 PRN IV HR>120 Last administered on 08/22/16 16:37 ; Admin Dose 10 MG; Start 08/20/16 at 18:30 Fluconazole/ Sodium Chloride (Diflucan 100 Mg/ NS (Pmx)) 50 ml @ 50 mls/hr Q24H IVPB Last administered on 08/22/16 23:01; Admin Dose 50 MLS/HR; Start at 21:00 Nystatin (Nystatin Susp) 5 ml QID PO Last administered on 08/22/16 23:02; Admin Dose 5 ML; Start 08/21/16 at 21:00 Lorazepam (Ativan) 1 mg Q2 PRN IV ANXIETY Last administered on 08/22/16 03:03 ; Admin Dose 1 MG; Start 08/21/16 at 21:00 Miscellaneous Information (*Rx Drug Level Order Reminder*) 1 ONCE ONCE XX ; Start 08/24/16 at 09:00; Stop 08/24/16 at 09:01 Digoxin (Digoxin) 125 mcg AM IV ; Start 08/23/16 at 14:30 ETELVINA CALLAHAN MD 08/24/16 1618: Assessment/Plan Assessment/Plan Assessment/Plan Patient has declined due to worsening respiratory failure & has been placed on continuous BIPAP.Plan of care discussed with patient's son. She has been made DNI as per her request. Total critical care time spent 30 minutes Exam/Review of Systems Results Result Diagram: 08/23/16 0545 08/23/16 0545 BRYANT PERALTA Aug 23, 2016 15:29 ETELVINA CALLAHAN MD Aug 24, 2016 16:18
--- NOTE | 2016-08-23 16:47 | PN ---
DATE: 08/23/2016 SUBJECTIVE: The patient is on BiPAP, tachypneic, in mild distress, no fevers. VITAL SIGNS: Temperature 99.3, pulse 101, respirations 27, blood pressure 152/57, saturation 96%. LABORATORY: WBC 10.7, H and H 7.6 and 25.6, platelets 190, neutrophils 93.1. INDWELLINGS: Right IJ PermCath. ANTIMICROBIALS: 1. Fluconazole. 2. Vancomycin. 3. Amikacin. PHYSICAL EXAMINATION: GENERAL: Fragile, elderly woman in no distress. HEENT: Head atraumatic, normocephalic. Sclerae anicteric. Buccal mucosa dry. NECK: Supple, trachea midline. CHEST: Rise symmetrical. Breath sounds with poor air movement, scattered crackles. Prolonged inspi ratory phase. ABDOMEN: Soft. Bowel tones hypoactive. EXTREMITIES: With trace edema. ASSESSMENT: 1. Acute on chronic respiratory failure, possibly secondary to fluid overload and pneumonia. 2. Status post sepsis with bacteremia. 3. Ongoing pulmonary edema, status post thoracentesis on 08/20/2016. 4. Oral pharyngeal candidiasis, on Diflucan. 5. Dementia. PLAN: The patient is doing poorly. She is DNI status. She is being seen by multiple consultants, pending chest x-ray. Continue present care. Prognosis guarded. Dictated By: NAHUN DOWNEY SUPERVISOR W[employer] for GURINDER HURT/SYED Conf#: [id number] DID#: [id number]
--- NOTE | 2016-08-23 17:40 | CONS ---
Date/Time of Note Date/Time of Note DATE: 08/23/16 TIME: 17:38 Assessment/Plan Assessment/Plan Chief Complaint/Hosp Course IMPRESSION: 1. End-stage renal disease stage V. 2. Fluid overload.better 3. Pulmonary edema./pleural effusion/lung infilterate s/p thoracenresis 4. Anemia of chronic kidney disease. 5. History of diabetes mellitus. 6. 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 7. AV fistula on the left upper extremity. 8 pneumonia/bronchites 9 thoracentesis s/p 10 s/p arrthymia plan continue hd fluis res antibiotic per pulmonary per cardio to control rate kcl Problems: Consultation Date/Type/Reason Admit Date/Time Jul 31, 2016 at 19:59 Initial Consult Date 08/01/16 Type of Consultation: renal Referring Provider: LALA ORO 24 HR Interval Summary Subjective hx not possible: other (on bipap) Exam/Review of Systems Vital Signs Vitals Vital Signs Date Time Temp Pulse Resp B/P Pulse Ox O2 Delivery O2 Flow Rate FiO2 08/23/16 16:39 100 75 08/23/16 16:32 105 08/23/16 13:20 33 08/23/16 12:44 15.0 08/23/16 11:20 99.3 152/57 08/22/16 13:38 Venti Mask Intake and Output 08/22/16 08/22/16 08/23/16 15:00 23:00 07:00 Intake Total 1800 ml 1090 ml Output Total 950 ml Balance 850 ml 1090 ml Exam Neck: supple Respiratory: diminished breath sounds Cardiovascular: regular rate and rhythm Gastrointestinal: bowel sounds, soft Extremities: edema (+) Results Result Diagram: 08/23/16 0545 08/23/16 0545 Results 24 hrs Laboratory Tests Test 08/22/16 18:09 08/22/16 20:52 08/23/16 05:45 08/23/16 07:43 Bedside Glucose 147 125 110 White Blood Count 10.7 # Red Blood Count 2.71 L Hemoglobin 7.6 L Hematocrit 25.6 L Mean Corpuscular Volume 94.5 Mean Corpuscular Hemoglobin 28.0 L Mean Corpuscular Hemoglobin Concent 29.7 L Red Cell Distribution Width 14.9 H Platelet Count 119 #L Mean Platelet Volume 11.1 H Neutrophils % 93.1 H Lymphocytes % 2.9 L Monocytes % 3.0 Eosinophils % 0.2 Basophils % 0.1 Nucleated Red Blood Cells % 0.0 Neutrophils # 10.0 H Lymphocytes # 0.3 L Monocytes # 0.3 Eosinophils # 0.0 Basophils # 0.0 Nucleated Red Blood Cells # 0.0 Sodium Level 135 Potassium Level 3.0 L Chloride Level 101 Carbon Dioxide Level 28 Anion Gap 9 # Blood Urea Nitrogen 31 H Creatinine 3.57 H Glucose Level 99 Calcium Level 7.4 L Total Bilirubin 0.3 Direct Bilirubin 0.00 Indirect Bilirubin 0.3 Aspartate Amino Transf (AST/SGOT) 16 Alanine Aminotransferase (ALT/SGPT) 26 Alkaline Phosphatase 107 Total Protein 5.0 L Albumin 2.5 L Globulin 2.50 Albumin/Globulin Ratio 1.00 Test 08/23/16 11:34 08/23/16 16:54 Bedside Glucose 110 139 Medications Medications Current Medications Atorvastatin Calcium (Lipitor) 40 mg HS PO Last administered on 08/20/16 20:47 ; Admin Dose 40 MG; Start 08/01/16 at 21:00 Calcitriol (Rocaltrol) 0.25 mcg DAILY PO Last administered on 08/20/16 08:40; Admin Dose 0.25 MCG; Start 08/01/16 at 09:00 Calcium/Vitamin D (Oyster Shell/ Vit-D (500/200)) 1 tab BID PO Last administered on 08/20/16 20:47; Admin Dose 1 TAB; Start 08/01/16 at 09:00 Hydralazine HCl (Apresoline) 50 mg Q8 PO Last administered on 08/20/16 06:01; Admin Dose 50 MG; Start 08/01/16 at 06:00 Paroxetine HCl (Paxil) 10 mg DAILY PO Last administered on 08/20/16 08:42; Admin Dose 10 MG; Start 08/01/16 at 09:00 Acetaminophen (Tylenol Tab) 650 mg Q4H PRN PO PAIN AND OR ELEVATED TEMP Last administered on 08/19/16 08:55; Admin Dose 650 MG; Start 08/01/16 at 00:30 Hydralazine HCl (Apresoline) 20 mg Q6H PRN IV ELEVATED BLOOD PRESSURE Last administered on 08/09/16 03:50; Admin Dose 20 MG; Start 08/01/16 at 00:30 Guaifenesin/ Dextromethorphan (Robitussin Dm Liquid Cup) 10 ml Q4H PRN PO COUGH Last administered on 08/20/16 21:07; Admin Dose 10 ML; Start 08/01/16 at 00:30 Epoetin Braden (Epogen (Esrd)) 6,000 units MoWeFr@17 SC Last administered on 08/20 18:23; Admin Dose 6,000 UNITS; Start 08/02/16 at 17:00 Linagliptin (Tradjenta) 5 mg DAILY PO Last administered on 08/20/16 08:42; Admin Dose 5 MG; Start 08/04/16 at 20:00 Salmeterol Xinafoate/ Fluticasone (Advair 250/50 Diskus) 1 inh BID INH Last administered on 08/22/16 20:49; Admin Dose 1 INH; Start 08/08/16 at 11:00 Montelukast Sodium (Singulair) 10 mg HS PO Last administered on 08/20/16 20:47 ; Admin Dose 10 MG; Start 08/08/16 at 21:00 Tiotropium [place] (Spiriva) 1 inh DAILY INH Last administered on 08/22/16 09: 00; Admin Dose 1 INH; Start 08/08/16 at 11:00 Miscellaneous Information 1 ea NOTE XX ; Start 08/13/16 at 17:30 Glucose (Glutose) 15 gm Q15M PRN PO DECREASED GLUCOSE; Start 08/13/16 at 17:30 Glucose (Glutose) 22.5 gm Q15M PRN PO DECREASED GLUCOSE; Start 08/13/16 at 17:30 Dextrose (D50w Syringe) 25 ml Q15M PRN IV DECREASED GLUCOSE; Start 08/13/16 at 17:30 Dextrose (D50w Syringe) 50 ml Q15M PRN IV DECREASED GLUCOSE; Start 08/13/16 at 17:30 Glucagon (Glucagen) 1 mg Q15M PRN IM DECREASED GLUCOSE; Start 08/13/16 at 17:30 Glucose 15 gm 15 gm Q15M PRN BUCCAL DECREASED GLUCOSE; Start 08/13/16 at 17:30 Vancomycin HCl (Vancocin) 250 ml @ 125 mls/hr Q96H IVPB Last administered on 10:27; Admin Dose 125 MLS/HR; Start 08/16/16 at 10:00 Apixaban (Eliquis) 5 mg BID PO Last administered on 08/20/16 20:47; Admin Dose 5 MG; Start 08/17/16 at 21:00 Amikacin Sulfate (Amikacin Iv Per Pharmacy) AMIKACIN PER PHARMACY NOTE XX ; Start 08/18/16 at 16:30 Metoprolol Tartrate (Lopressor) 50 mg BID PO Last administered on 08/20/16 20: 49; Admin Dose 50 MG; Start 08/19/16 at 09:00 Phenol (Cepastat Lozenge) 1 lozenge Q1H PRN MT SORE THROAT Last administered on 08/19/16 18:56; Admin Dose 1 LOZENGE; Start 08/19/16 at 16:30 Diagnostic Test (Pha) (Accu-Chek) 1 ea 02 XX Last administered on 08/22/16 02: 00; Admin Dose 1 EA; Start 08/20/16 at 02:00 Nystatin 1 applic 1 applic BID TOP Last administered on 08/22/16 20:49; Admin Dose 1 APPLIC; Start 08/19/16 at 21:00 Dextrose/Sodium Chloride (D5-1/2ns) 1,000 ml @ 40 mls/hr Q24H IV Last administered on 08/23/16 04:48; Admin Dose 40 MLS/HR; Start 08/20/16 at 13:00 Diltiazem HCl 10 mg 10 mg Q4 PRN IV HR>120 Last administered on 08/22/16 16:37 ; Admin Dose 10 MG; Start 08/20/16 at 18:30 Fluconazole/ Sodium Chloride (Diflucan 100 Mg/ NS (Pmx)) 50 ml @ 50 mls/hr Q24H IVPB Last administered on 08/22/16 23:01; Admin Dose 50 MLS/HR; Start at 21:00 Nystatin (Nystatin Susp) 5 ml QID PO Last administered on 08/22/16 23:02; Admin Dose 5 ML; Start 08/21/16 at 21:00 Lorazepam (Ativan) 1 mg Q2 PRN IV ANXIETY Last administered on 08/22/16 03:03 ; Admin Dose 1 MG; Start 08/21/16 at 21:00 Miscellaneous Information (*Rx Drug Level Order Reminder*) 1 ONCE ONCE XX ; Start 08/24/16 at 09:00; Stop 08/24/16 at 09:01 Digoxin 125 mcg 125 mcg AM IV Last administered on 08/23/16t 15:52; Admin Dose 125 MCG; Start 08/23/16 at 14:30 Potassium Chloride (KCl 20 MEQ/50 ML SW) 50 ml @ 25 mls/hr ONCE ONCE IVPB ; Start 08/23/16 at 18:00; Stop 08/23/16 at 19:59; Status DAT TOLENTINO MD Aug 23, 2016 17:40
[2016-08-23] MEDS ORDERED: POTASSIUM CHLORIDE 50 ML IVPB ONE (18:00)
[2016-08-23] MEDS: POTASSIUM CHLORIDE 50 ML IVPB SCH ×2 (18:38→18:53)
--- NOTE | 2016-08-23 18:59 | CONS ---
Date/Time of Note Date/Time of Note DATE: 08/23/16 TIME: 18:58 Assessment/Plan Assessment/Plan Problems: (1) Type 2 diabetes mellitus with diabetic chronic kidney disease Status: Chronic Comment: Good control. Cont. 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 not on chronic dialysis, with long-term current use of insulin Consultation Date/Type/Reason Admit Date/Time Jul 31, 2016 at 19:59 Initial Consult Date 08/06/16 Type of Consultation: Endocrinology Reason for Consultation T2DM management Referring Provider: LALA ORO 24 HR Interval Summary Subjective hx not possible: pt non-verbal Exam/Review of Systems Vital Signs Vitals VS - Last 72 Hours, by Label Date Time Temp Pulse Resp B/P Pulse Ox O2 Delivery O2 Flow Rate FiO2 08/23/16 17:40 62 22 08/23/16 16:39 100 75 08/23/16 16:32 105 08/23/16 13:20 33 82 100 08/23/16 13:20 82 100 08/23/16 12:44 96 15.0 50 08/23/16 12:14 101 08/23/16 11:20 99.3 75 27 152/57 98 08/23/16 08:34 102 08/23/16 07:48 98.6 101 24 142/65 98 08/23/16 07:34 107 98 60 08/23/16 07:34 107 20 98 60 08/23/16 06:25 98 95 60 08/23/16 04:34 102 08/23/16 04:14 98.4 96 24 150/56 94 08/23/16 03:20 97 96 60 08/23/16 01:20 101 94 60 08/23/16 00:27 104 08/22/16 23:53 98.8 86 21 150/54 95 08/22/16 23:30 96 94 60 08/22/16 22:03 97 96 60 08/22/16 21:10 110 93 60 08/22/16 20:32 120 08/22/16 20:00 98.6 102 23 169/59 97 08/22/16 19:53 91 23 96 60 08/22/16 19:50 91 96 60 08/22/16 18:06 146 26 08/22/16 17:28 141 08/22/16 17:17 140 08/22/16 17:00 146 08/22/16 16:45 146 08/22/16 16:30 65 08/22/16 16:26 127 08/22/16 16:15 142 08/22/16 16:00 122 08/22/16 15:50 113 93 60 08/22/16 15:45 119 08/22/16 15:20 133 08/22/16 15:15 77 08/22/16 15:15 142 26 08/22/16 15:10 98.8 133 35 115/58 95 08/22/16 14:00 120 91 60 08/22/16 13:38 88 26 93 Venti Mask 15.0 50 08/22/16 12:21 105 08/22/16 11:25 Venti Mask 15.0 08/22/16 11:16 99.2 120 29 138/48 96 08/22/16 11:00 118 95 60 08/22/16 09:30 89 96 60 08/22/16 08:28 118 08/22/16 08:20 128 89 60 08/22/16 08:06 92 23 91 Venti Mask 15.0 50 08/22/16 07:38 98.7 106 22 138/49 98 08/22/16 05:26 15.0 08/22/16 04:14 87 08/22/16 03:37 97.9 99 18 133/60 93 08/22/16 01:08 96 22 93 Venti Mask 15.0 50 08/22/16 00:47 97 08/21/16 23:22 98.1 70 21 117/57 96 08/21/16 23:01 99 97 60 08/21/16 20:41 101 08/21/16 20:32 150 93 60 08/21/16 19:13 15.0 08/21/16 19:13 60 22 94 Venti Mask 15.0 50 08/21/16 19:02 98.3 53 22 132/60 95 08/21/16 16:07 148 08/21/16 15:22 98.7 150 20 118/58 90 08/21/16 14:37 15.0 08/21/16 14:36 88 24 96 Venti Mask 15.0 50 08/21/16 12:20 77 08/21/16 11:48 155 18 08/21/16 11:15 167 08/21/16 11:15 Venti Mask 15.0 08/21/16 11:14 98.6 95 22 167/69 92 08/21/16 11:00 121 08/21/16 10:30 96 08/21/16 10:30 96 19 08/21/16 08:49 77 22 95 Venti Mask 15.0 50 08/21/16 08:11 90 08/21/16 07:39 98.9 85 22 117/46 92 08/21/16 04:10 101 08/21/16 04:02 97.6 90 18 104/48 93 08/21/16 01:31 79 21 Venti Mask 15.0 50 08/21/16 01:31 15.0 08/21/16 00:23 97.0 94 16 84/35 95 08/21/16 00:18 96 08/20/16 23:06 81 94 40 08/20/16 20:20 98.6 75 16 120/44 92 08/20/16 20:14 80 08/20/16 19:59 75 21 95 Venti Mask 15.0 50 08/20/16 19:59 95 15.0 Vital Signs Date Time Temp Pulse Resp B/P Pulse Ox O2 Delivery O2 Flow Rate FiO2 08/23/16 17:40 62 22 08/23/16 16:39 100 75 08/23/16 12:44 15.0 08/23/16 11:20 99.3 152/57 08/22/16 13:38 Venti Mask Intake and Output 08/22/16 08/22/16 08/23/16 15:00 23:00 07:00 Intake Total 1800 ml 1090 ml Output Total 950 ml Balance 850 ml 1090 ml Exam Constitutional: frail, non-verbal (on BiPAP), No alert Respiratory: clear to auscultation, normal air movement Cardiovascular: nl pulses, regular rate and rhythm, No edema, No murmurs/extra sounds, No rub Gastrointestinal: bowel sounds, nl liver, spleen, non-tender, soft, No mass, No rebound or guarding Musculoskeletal: nl extremities to inspection Extremities: normal pulses, No clubbing, No cyanosis, No edema 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: 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 II-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 intact, nl mental status, nl speech, nl strength Additional Comments Bedside Glucose - 72 Hours Test 08/20/16 20:43 08/21/16 02:15 08/21/16 07:28 08/21/16 11:26 Bedside Glucose 95mg/dL (70-220) 129mg/dL (70-220) 154mg/dL (70-220) 134mg/dL (70-220) Test 08/21/16 17:29 08/21/16 21:58 08/22/16 02:50 08/22/16 07:25 Bedside Glucose 158mg/dL (70-220) 169mg/dL (70-220) 183mg/dL (70-220) 165mg/dL (70-220) Test 08/22/16 11:42 08/22/16 18:09 08/22/16 20:52 08/23/16 07:43 Bedside Glucose 169mg/dL (70-220) 147mg/dL (70-220) 125mg/dL (70-220) 110mg/dL (70-220) Test 08/23/16 11:34 08/23/16 16:54 Bedside Glucose 110mg/dL (70-220) 139mg/dL (70-220) Results Result Diagram: 08/23/16 0545 08/23/16 0545 Results 24 hrs Laboratory Tests Test 08/22/16 20:52 08/23/16 05:45 08/23/16 07:43 08/23/16 11:34 Bedside Glucose 125 110 110 White Blood Count 10.7 # Red Blood Count 2.71 L Hemoglobin 7.6 L Hematocrit 25.6 L Mean Corpuscular Volume 94.5 Mean Corpuscular Hemoglobin 28.0 L Mean Corpuscular Hemoglobin Concent 29.7 L Red Cell Distribution Width 14.9 H Platelet Count 119 #L Mean Platelet Volume 11.1 H Neutrophils % 93.1 H Lymphocytes % 2.9 L Monocytes % 3.0 Eosinophils % 0.2 Basophils % 0.1 Nucleated Red Blood Cells % 0.0 Neutrophils # 10.0 H Lymphocytes # 0.3 L Monocytes # 0.3 Eosinophils # 0.0 Basophils # 0.0 Nucleated Red Blood Cells # 0.0 Sodium Level 135 Potassium Level 3.0 L Chloride Level 101 Carbon Dioxide Level 28 Anion Gap 9 # Blood Urea Nitrogen 31 H Creatinine 3.57 H Glucose Level 99 Calcium Level 7.4 L Total Bilirubin 0.3 Direct Bilirubin 0.00 Indirect Bilirubin 0.3 Aspartate Amino Transf (AST/SGOT) 16 Alanine Aminotransferase (ALT/SGPT) 26 Alkaline Phosphatase 107 Total Protein 5.0 L Albumin 2.5 L Globulin 2.50 Albumin/Globulin Ratio 1.00 Test 08/23/16 16:54 Bedside Glucose 139 Medications Medications Current Medications Atorvastatin Calcium (Lipitor) 40 mg HS PO Last administered on 08/20/16 20:47 ; Admin Dose 40 MG; Start 08/01/16 at 21:00 Calcitriol (Rocaltrol) 0.25 mcg DAILY PO Last administered on 08/20/16 08:40; Admin Dose 0.25 MCG; Start 08/01/16 at 09:00 Calcium/Vitamin D (Oyster Shell/ Vit-D (500/200)) 1 tab BID PO Last administered on 08/20/16 20:47; Admin Dose 1 TAB; Start 08/01/16 at 09:00 Hydralazine HCl (Apresoline) 50 mg Q8 PO Last administered on 08/20/16 06:01; Admin Dose 50 MG; Start 08/01/16 at 06:00 Paroxetine HCl (Paxil) 10 mg DAILY PO Last administered on 08/20/16 08:42; Admin Dose 10 MG; Start 08/01/16 at 09:00 Acetaminophen (Tylenol Tab) 650 mg Q4H PRN PO PAIN AND OR ELEVATED TEMP Last administered on 08/19/16 08:55; Admin Dose 650 MG; Start 08/01/16 at 00:30 Hydralazine HCl (Apresoline) 20 mg Q6H PRN IV ELEVATED BLOOD PRESSURE Last administered on 08/09/16 03:50; Admin Dose 20 MG; Start 08/01/16 at 00:30 Guaifenesin/ Dextromethorphan (Robitussin Dm Liquid Cup) 10 ml Q4H PRN PO COUGH Last administered on 08/20/16 21:07; Admin Dose 10 ML; Start 08/01/16 at 00:30 Epoetin Braden (Epogen (Esrd)) 6,000 units MoWeFr@17 SC Last administered on 08/20 18:23; Admin Dose 6,000 UNITS; Start 08/02/16 at 17:00 Linagliptin (Tradjenta) 5 mg DAILY PO Last administered on 08/20/16 08:42; Admin Dose 5 MG; Start 08/04/16 at 20:00 Salmeterol Xinafoate/ Fluticasone (Advair 250/50 Diskus) 1 inh BID INH Last administered on 08/22/16 20:49; Admin Dose 1 INH; Start 08/08/16 at 11:00 Montelukast Sodium (Singulair) 10 mg HS PO Last administered on 08/20/16 20:47 ; Admin Dose 10 MG; Start 08/08/16 at 21:00 Tiotropium [place] (Spiriva) 1 inh DAILY INH Last administered on 08/22/16 09: 00; Admin Dose 1 INH; Start 08/08/16 at 11:00 Miscellaneous Information 1 ea NOTE XX ; Start 08/13/16 at 17:30 Glucose (Glutose) 15 gm Q15M PRN PO DECREASED GLUCOSE; Start 08/13/16 at 17:30 Glucose (Glutose) 22.5 gm Q15M PRN PO DECREASED GLUCOSE; Start 08/13/16 at 17:30 Dextrose (D50w Syringe) 25 ml Q15M PRN IV DECREASED GLUCOSE; Start 08/13/16 at 17:30 Dextrose (D50w Syringe) 50 ml Q15M PRN IV DECREASED GLUCOSE; Start 08/13/16 at 17:30 Glucagon (Glucagen) 1 mg Q15M PRN IM DECREASED GLUCOSE; Start 08/13/16 at 17:30 Glucose 15 gm 15 gm Q15M PRN BUCCAL DECREASED GLUCOSE; Start 08/13/16 at 17:30 Vancomycin HCl (Vancocin) 250 ml @ 125 mls/hr Q96H IVPB Last administered on 10:27; Admin Dose 125 MLS/HR; Start 08/16/16 at 10:00 Apixaban (Eliquis) 5 mg BID PO Last administered on 08/20/16 20:47; Admin Dose 5 MG; Start 08/17/16 at 21:00 Amikacin Sulfate (Amikacin Iv Per Pharmacy) AMIKACIN PER PHARMACY NOTE XX ; Start 08/18/16 at 16:30 Metoprolol Tartrate (Lopressor) 50 mg BID PO Last administered on 08/20/16 20: 49; Admin Dose 50 MG; Start 08/19/16 at 09:00 Phenol (Cepastat Lozenge) 1 lozenge Q1H PRN MT SORE THROAT Last administered on 08/19/16 18:56; Admin Dose 1 LOZENGE; Start 08/19/16 at 16:30 Diagnostic Test (Pha) (Accu-Chek) 1 ea 02 XX Last administered on 08/22/16 02: 00; Admin Dose 1 EA; Start 08/20/16 at 02:00 Nystatin 1 applic 1 applic BID TOP Last administered on 08/22/16 20:49; Admin Dose 1 APPLIC; Start 08/19/16 at 21:00 Dextrose/Sodium Chloride (D5-1/2ns) 1,000 ml @ 40 mls/hr Q24H IV Last administered on 08/23/16 04:48; Admin Dose 40 MLS/HR; Start 08/20/16 at 13:00 Diltiazem HCl 10 mg 10 mg Q4 PRN IV HR>120 Last administered on 08/22/16 16:37 ; Admin Dose 10 MG; Start 08/20/16 at 18:30 Fluconazole/ Sodium Chloride (Diflucan 100 Mg/ NS (Pmx)) 50 ml @ 50 mls/hr Q24H IVPB Last administered on 08/22/16 23:01; Admin Dose 50 MLS/HR; Start at 21:00 Nystatin (Nystatin Susp) 5 ml QID PO Last administered on 08/22/16 23:02; Admin Dose 5 ML; Start 08/21/16 at 21:00 Lorazepam (Ativan) 1 mg Q2 PRN IV ANXIETY Last administered on 08/22/16 03:03 ; Admin Dose 1 MG; Start 08/21/16 at 21:00 Miscellaneous Information (*Rx Drug Level Order Reminder*) 1 ONCE ONCE XX ; Start 08/24/16 at 09:00; Stop 08/24/16 at 09:01 Digoxin 125 mcg 125 mcg AM IV Last administered on 08/23/16 15:52; Admin Dose 125 MCG; Start 08/23/16 at 14:30 Potassium Chloride (KCl 10 MEQ/50 ML SW) 50 ml @ 50 mls/hr Q1H IVPB Last administered on 4/17/17at 18:53; Admin Dose 50 MLS/HR; Start 08/23/16 at 18:00; Stop 08/23/16 at 19:59 JUDAH NOE MD Aug 23, 2016 18:59
--- NOTE | 2016-08-23 20:43 | PN ---
DATE: 08/23/2016 ADDENDUM I spoke with the patient's son, Connor, regarding change in patient's condition. Updated him regarding worsening respiratory failure. The patient is currently on BiPAP. The patient is breathing comfortably on BiPAP and saturating 100% on FIO2 of 75%. The patient does not want to be intubated and, of course, status has been recently changed to DO NOT INTUBATE. I also explained to him that patient remains critically ill due to multiple medical conditions. Dictated By: ETELVINA GUERRERO/SYED Conf#: [id number] DID#: [id number] MTDD
[2016-08-23] MEDS: ATORVASTATIN 40 MG TAB PO SCH (21:00)
[2016-08-23] MEDS: MONTELUKAST 10 MG TAB PO SCH (21:00)
[2016-08-23] MEDS: AMIKACIN 275 MG in SOD CHLORIDE 0.9% 100 ML IVPB SCH (21:18)
[2016-08-23] MEDS: EPOETIN 3000 UNITS/1 ML INJ (ESRD) SC SCH (21:20)
[2016-08-23] MEDS: FLUCONAZOLE 100 MG/NS (PMX) 50 ML IVPB SCH (21:21)
[2016-08-24] VITALS (30 sets, daily range): BP systolic 98–168; BP diastolic 41–90; PULSE 87–178; RESP 18–20
[2016-08-24] MEDS: ACCUCHECK AT 2AM (Patients on SS coverage) XX SCH (02:00)
[2016-08-24] MEDS: ALBUTEROL/IPRATROPIUM (NEB) 3 ML AMP HHN SCH ×4 (02:14→19:55)
[2016-08-24] MEDS: FUROSEMIDE 40 MG INJ IV SCH ×2 (06:00→18:00)
[2016-08-24] MEDS: Insulin NOVOLOG SS MILD Algorithm (SS with meals and bedtime) SC SCH ×4 (07:25→22:32)
[2016-08-24 07:54] LABS: ADD SCAN DIFF NO
[2016-08-24] MEDS: CALCIUM ACETATE 667 MG CAP PO SCH ×3 (07:55→17:23)
[2016-08-24 08:27] LABS: CREATININE 2.18 mg/dl (0.44-1.00); MAGNESIUM 2.1 mg/dl (1.7-2.5); PHOSPHORUS 4.9 mg/dl (2.5-4.9); POTASSIUM 4.6 mmol/L (3.5-5.1)
--- NOTE | 2016-08-24 08:36 | CONS ---
Date/Time of Note Date/Time of Note DATE: 08/24/16 TIME: 08:35 Consult Date/Type/Reason Admit Date/Time Jul 31, 2016 at 19:59 Initial Consult Date 08/06/16 Type of Consultation: Card and Vasc Int Ordering Provider: LALA ORO Objective Vital Signs Date Time Temp Pulse Resp B/P Pulse Ox O2 Delivery O2 Flow Rate FiO2 08/24/16 08:05 107 98 50 08/24/16 07:42 98.2 20 146/51 08/23/16 12:44 15.0 08/22/16 13:38 Venti Mask Intake and Output 08/23/16 08/23/16 08/24/16 15:00 23:00 07:00 Intake Total 651.1 ml 400 ml Output Total 2500 ml Balance -1848.9 ml 400 ml Results/Medications Result Diagram: 08/23/16 0545 08/23/16 0545 Results 24 hrs Laboratory Tests Test 08/23/16 11:34 08/23/16 16:54 08/23/16 21:30 08/24/16 07:58 Bedside Glucose 110 139 130 122 Medications Current Medications Atorvastatin Calcium (Lipitor) 40 mg HS PO Last administered on 08/20/16 20:47 ; Admin Dose 40 MG; Start 08/01/16 at 21:00 Calcitriol (Rocaltrol) 0.25 mcg DAILY PO Last administered on 08/20/16 08:40; Admin Dose 0.25 MCG; Start 08/01/16 at 09:00 Calcium/Vitamin D (Oyster Shell/ Vit-D (500/200)) 1 tab BID PO Last administered on 08/20/16 20:47; Admin Dose 1 TAB; Start 08/01/16 at 09:00 Hydralazine HCl (Apresoline) 50 mg Q8 PO Last administered on 08/20/16 06:01; Admin Dose 50 MG; Start 08/01/16 at 06:00 Paroxetine HCl (Paxil) 10 mg DAILY PO Last administered on 08/20/16 08:42; Admin Dose 10 MG; Start 08/01/16 at 09:00 Acetaminophen (Tylenol Tab) 650 mg Q4H PRN PO PAIN AND OR ELEVATED TEMP Last administered on 08/19/16 08:55; Admin Dose 650 MG; Start 08/01/16 at 00:30 Hydralazine HCl (Apresoline) 20 mg Q6H PRN IV ELEVATED BLOOD PRESSURE Last administered on 08/09/16 03:50; Admin Dose 20 MG; Start 08/01/16 at 00:30 Guaifenesin/ Dextromethorphan (Robitussin Dm Liquid Cup) 10 ml Q4H PRN PO COUGH Last administered on 08/20/16 21:07; Admin Dose 10 ML; Start 08/01/16 at 00:30 Epoetin Braden (Epogen (Esrd)) 6,000 units MoWeFr@17 SC Last administered on 08/23 21:20; Admin Dose 6,000 UNITS; Start 08/02/16 at 17:00 Linagliptin (Tradjenta) 5 mg DAILY PO Last administered on 08/20/16 08:42; Admin Dose 5 MG; Start 08/04/16 at 20:00 Salmeterol Xinafoate/ Fluticasone (Advair 250/50 Diskus) 1 inh BID INH Last administered on 08/23/16 21:20; Admin Dose 1 INH; Start 08/08/16 at 11:00 Montelukast Sodium (Singulair) 10 mg HS PO Last administered on 08/20/16 20:47 ; Admin Dose 10 MG; Start 08/08/16 at 21:00 Tiotropium [place] (Spiriva) 1 inh DAILY INH Last administered on 08/22/16 09: 00; Admin Dose 1 INH; Start 08/08/16 at 11:00 Miscellaneous Information 1 ea NOTE XX ; Start 08/13/16 at 17:30 Glucose (Glutose) 15 gm Q15M PRN PO DECREASED GLUCOSE; Start 08/13/16 at 17:30 Glucose (Glutose) 22.5 gm Q15M PRN PO DECREASED GLUCOSE; Start 08/13/16 at 17:30 Dextrose (D50w Syringe) 25 ml Q15M PRN IV DECREASED GLUCOSE; Start 08/13/16 at 17:30 Dextrose (D50w Syringe) 50 ml Q15M PRN IV DECREASED GLUCOSE; Start 08/13/16 at 17:30 Glucagon (Glucagen) 1 mg Q15M PRN IM DECREASED GLUCOSE; Start 08/13/16 at 17:30 Glucose 15 gm 15 gm Q15M PRN BUCCAL DECREASED GLUCOSE; Start 08/13/16 at 17:30 Vancomycin HCl (Vancocin) 250 ml @ 125 mls/hr Q96H IVPB Last administered on 10:27; Admin Dose 125 MLS/HR; Start 08/16/16 at 10:00 Apixaban (Eliquis) 5 mg BID PO Last administered on 08/20/16 20:47; Admin Dose 5 MG; Start 08/17/16 at 21:00 Amikacin Sulfate (Amikacin Iv Per Pharmacy) AMIKACIN PER PHARMACY NOTE XX ; Start 08/18/16 at 16:30 Metoprolol Tartrate (Lopressor) 50 mg BID PO Last administered on 08/20/16 20: 49; Admin Dose 50 MG; Start 08/19/16 at 09:00 Phenol (Cepastat Lozenge) 1 lozenge Q1H PRN MT SORE THROAT Last administered on 08/19/16 18:56; Admin Dose 1 LOZENGE; Start 08/19/16 at 16:30 Diagnostic Test (Pha) (Accu-Chek) 1 ea 02 XX Last administered on 08/22/16 02: 00; Admin Dose 1 EA; Start 08/20/16 at 02:00 Nystatin 1 applic 1 applic BID TOP Last administered on 08/23/16 21:47; Admin Dose 1 APPLIC; Start 08/19/16 at 21:00 Dextrose/Sodium Chloride (D5-1/2ns) 1,000 ml @ 40 mls/hr Q24H IV Last administered on 08/23/16 04:48; Admin Dose 40 MLS/HR; Start 08/20/16 at 13:00 Diltiazem HCl 10 mg 10 mg Q4 PRN IV HR>120 Last administered on 08/22/16 16:37 ; Admin Dose 10 MG; Start 08/20/16 at 18:30 Fluconazole/ Sodium Chloride (Diflucan 100 Mg/ NS (Pmx)) 50 ml @ 50 mls/hr Q24H IVPB Last administered on 08/23/16 21:21; Admin Dose 50 MLS/HR; Start at 21:00 Nystatin (Nystatin Susp) 5 ml QID PO Last administered on 08/22/16 23:02; Admin Dose 5 ML; Start 08/21/16 at 21:00 Lorazepam (Ativan) 1 mg Q2 PRN IV ANXIETY Last administered on 08/22/16 03:03 ; Admin Dose 1 MG; Start 08/21/16 at 21:00 Miscellaneous Information (*Rx Drug Level Order Reminder*) 1 ONCE ONCE XX ; Start 08/24/16 at 09:00; Stop 08/24/16 at 09:01 Digoxin (Digoxin) 125 mcg AM IV Last administered on 08/23/16 15:52; Admin Dose 125 MCG; Start 08/23/16 at 14:30 Assessment/Plan Chief Complaint/Hosp Course Patient is 85 year old F with PMH of HTN, HLD, CKD now presentezd with SOB and ESRD was started on HD. She already has been planning for Stage IV CKD and had fistula done already. Pt does have some SOB. significant Leg edema. Likely realted to CKD and Diastolic HF. LVEF is nl. Problems: Additional Assessment/Plan Pt in sinus rhtym at 100s If not NPO please start back on her metoprolol 50mg BID as well as Cardizem 180mg daily amiodarone PO and Dig PO right now on IV dig aao3 stable will/ .fu on bipap SIERRA GARCIA MD Aug 24, 2016 08:36
[2016-08-24] MEDS: APIXABAN 5 MG TABLET PO SCH ×2 (09:00→21:00)
[2016-08-24] MEDS: LINAGLIPTIN 5 MG TABLET PO SCH (09:00)
[2016-08-24] MEDS: SALMETEROL/FLUTICASONE 250/50 INHA INH SCH ×2 (09:00→22:08)
[2016-08-24] MEDS: CLOTRIMAZOLE 10 MG TROCHE MT SCH ×5 (09:00→22:09)
[2016-08-24] MEDS: CALCIUM/VITAMIN D (500/200) TAB PO SCH ×2 (09:00→21:00)
[2016-08-24] MEDS: NYSTATIN SUSP 5 ML CUP PO SCH ×4 (09:00→21:00)
[2016-08-24] MEDS: CALCITRIOL 0.25 MCG CAP PO SCH (09:00)
[2016-08-24] MEDS: NYSTATIN 30 GM POWDER BTL TOP SCH ×2 (09:00→22:04)
[2016-08-24] MEDS: METOPROLOL 25 MG TAB PO SCH ×2 (09:00→21:00)
[2016-08-24] MEDS: PAROXETINE 10 MG TAB PO SCH (09:00)
[2016-08-24] MEDS: TIOTROPIUM 18 MCG CAPSULE INHA DEV INH SCH (09:00)
[2016-08-24 09:08] LABS: Allen Test ACCEPTAB; Arterial Base Excess 2.2 mmol/L (-3.0-3); Arterial COHb 0.1 % (0.0-3.0); Arterial Fraction of Oxyhgb 95.8 % (93.0-99.0); Arterial HCO3 26.6 mmol/L (22.0-26.0); Arterial MetHb 0.3 % (0.0-1.5); Arterial Total Hemglobin 7.5 g/dl (12.0-18.0); MODE MASK - BIPAP
[2016-08-24 09:09] LABS: ABNORMAL IP MESSAGE 1; HEMATOCRIT 26.1 % (37.0-47.0); HEMOGLOBIN 7.8 g/dl (12.0-16.0); MEAN CORPUSCULAR HEMOGLOBIN 28.7 pg (29.0-33.0); MEAN CORPUSCULAR HGB CONC 29.9 g/dl (32.0-37.0); MEAN PLATELET VOLUME 10.7 fl (7.4-10.4); PLATELET COUNT 128 10^3/UL (140-415); RED BLOOD COUNT 2.72 10^6/ul (4.20-5.40); RED CELL DISTRIBUTION WIDTH 14.7 % (11.5-14.5)
[2016-08-24] MEDS: DIGOXIN 500 MCG INJ IV SCH (10:10)
[2016-08-24] MEDS: VANCOMYCIN 1 GM in NS 250 ML IVPB SCH (10:11)
--- NOTE | 2016-08-24 10:23 | CONS ---
Date/Time of Note Date/Time of Note DATE: 08/24/16 TIME: 10:20 Assessment/Plan Assessment/Plan Additional Assessment/Plan Assessment recommendations; next 1. Patient admitted for acute renal failure now requiring hemodialysis. 2. Anemia. 3. Mild thrombocytopenia. 4. COPD. 5. Diabetes. 6. Hypertension. 7. Bilateral pneumonia. 8. The current right pleural effusion, status post thoracentesis 2. Continue current supportive care. Patient prognosis does appear poor. The patient's family has made her DO NOT INTUBATE status which is an appropriate decision. Consultation Date/Type/Reason Admit Date/Time Jul 31, 2016 at 19:59 Initial Consult Date 08/06/16 Type of Consultation: Pulmonary Referring Provider: LALA ORO 24 HR Interval Summary Free Text/Dictation Patient condition remains tenuous at best. Still on BiPAP. Patient however is feeling comfortable. Denies any shortness of breath. General exam; elderly lady, on BiPAP currently in no distress. Awake and alert. Exam/Review of Systems Vital Signs Vitals Vital Signs Date Time Temp Pulse Resp B/P Pulse Ox O2 Delivery O2 Flow Rate FiO2 08/24/16 08:18 106 08/24/16 08:05 98 50 08/24/16 07:42 98.2 20 146/51 08/23/16 12:44 15.0 08/22/16 13:38 Venti Mask Intake and Output 08/23/16 08/23/16 08/24/16 15:00 23:00 07:00 Intake Total 651.1 ml 400 ml Output Total 2500 ml Balance -1848.9 ml 400 ml Exam HEENT examined; supple neck, patient is edentulous. Pupils are small bilaterally. No neck masses. No thyromegaly. No lymphadenopathy. Chest exam is; diminished breath sounds throughout. S1-S2 audible, no murmurs. Abdomen exam is; soft, no organomegaly. Bowel sounds audible. Nondistended. Extremity exam is; trace edema. Patient is extensive ecchymosis involving all 4 extremities. WARP STARTER examination; patient awake alert follows commands moves all 4 extremities. Results Result Diagram: 08/24/16 0845 08/24/16 0700 Results 24 hrs Laboratory Tests Test 08/23/16 11:34 08/23/16 16:54 08/23/16 21:30 08/24/16 07:00 Bedside Glucose 110 139 130 Blood Gas Specimen Source Blood arterial Arterial Blood Date Drawn 08/24/2016 8:47:00 AM Arterial Blood pH (Temp corrected) 7.440 Arterial Blood pCO2 (Temp correct) 40.0 Arterial Blood pO2 (Temp corrected) 86.5 Arterial Blood HCO3 26.6 H Arterial Blood Base Excess 2.2 Arterial Blood Oxygen Saturation 96.2 Chris Test ACCEPTAB Arterial Blood Gas Puncture Site Right Radial Arterial Blood Carboxyhemoglobin 0.1 Arterial Blood Methemoglobin 0.3 Blood Gas A-a O2 Differential 225.0 H Oxyhemoglobin Percent 95.8 Total Hemoglobin 7.5 L Blood Gas Temperature 37.0 Blood Gas Respiration Rate 14.0 Blood Gas Actual Respiration Rate 24 Blood Gas Modality MASK - BIPAP FiO2 50.0 Blood Gas IPAP/EPAP Ratio 04/13 Blood Gas Notified Whom JLD Blood Gas Notified Time 08/24/2016 9:08:00 AM Sodium Level 136 Potassium Level 4.6 Chloride Level 105 Carbon Dioxide Level 19 L Anion Gap 17 #H Blood Urea Nitrogen 30 H Creatinine 2.18 #H Glucose Level 105 Calcium Level 7.0 L Phosphorus Level 4.9 Magnesium Level 2.1 Test 08/24/16 07:58 08/24/16 08:45 Bedside Glucose 122 White Blood Count 8.0 # Red Blood Count 2.72 L Hemoglobin 7.8 L Hematocrit 26.1 L Mean Corpuscular Volume 96.0 Mean Corpuscular Hemoglobin 28.7 L Mean Corpuscular Hemoglobin Concent 29.9 L Red Cell Distribution Width 14.7 H Platelet Count 128 L Mean Platelet Volume 10.7 H Vancomycin Level Trough 16.0 Medications Medications Current Medications Atorvastatin Calcium (Lipitor) 40 mg HS PO Last administered on 08/20/16 20:47 ; Admin Dose 40 MG; Start 08/01/16 at 21:00 Calcitriol (Rocaltrol) 0.25 mcg DAILY PO Last administered on 08/20/16 08:40; Admin Dose 0.25 MCG; Start 08/01/16 at 09:00 Calcium/Vitamin D (Oyster Shell/ Vit-D (500/200)) 1 tab BID PO Last administered on 08/20/16 20:47; Admin Dose 1 TAB; Start 08/01/16 at 09:00 Hydralazine HCl (Apresoline) 50 mg Q8 PO Last administered on 08/20/16 06:01; Admin Dose 50 MG; Start 08/01/16 at 06:00 Paroxetine HCl (Paxil) 10 mg DAILY PO Last administered on 08/20/16 08:42; Admin Dose 10 MG; Start 08/01/16 at 09:00 Acetaminophen (Tylenol Tab) 650 mg Q4H PRN PO PAIN AND OR ELEVATED TEMP Last administered on 08/19/16 08:55; Admin Dose 650 MG; Start 08/01/16 at 00:30 Hydralazine HCl (Apresoline) 20 mg Q6H PRN IV ELEVATED BLOOD PRESSURE Last administered on 08/09/16 03:50; Admin Dose 20 MG; Start 08/01/16 at 00:30 Guaifenesin/ Dextromethorphan (Robitussin Dm Liquid Cup) 10 ml Q4H PRN PO COUGH Last administered on 08/20/16 21:07; Admin Dose 10 ML; Start 08/01/16 at 00:30 Epoetin Braden (Epogen (Esrd)) 6,000 units MoWeFr@17 SC Last administered on 08/23 21:20; Admin Dose 6,000 UNITS; Start 08/02/16 at 17:00 Linagliptin (Tradjenta) 5 mg DAILY PO Last administered on 08/20/16 08:42; Admin Dose 5 MG; Start 08/04/16 at 20:00 Salmeterol Xinafoate/ Fluticasone (Advair 250/50 Diskus) 1 inh BID INH Last administered on 08/23/16 21:20; Admin Dose 1 INH; Start 08/08/16 at 11:00 Montelukast Sodium (Singulair) 10 mg HS PO Last administered on 08/20/16 20:47 ; Admin Dose 10 MG; Start 08/08/16 at 21:00 Tiotropium [place] (Spiriva) 1 inh DAILY INH Last administered on 08/22/16 09: 00; Admin Dose 1 INH; Start 08/08/16 at 11:00 Miscellaneous Information 1 ea NOTE XX ; Start 08/13/16 at 17:30 Glucose (Glutose) 15 gm Q15M PRN PO DECREASED GLUCOSE; Start 08/13/16 at 17:30 Glucose (Glutose) 22.5 gm Q15M PRN PO DECREASED GLUCOSE; Start 08/13/16 at 17:30 Dextrose (D50w Syringe) 25 ml Q15M PRN IV DECREASED GLUCOSE; Start 08/13/16 at 17:30 Dextrose (D50w Syringe) 50 ml Q15M PRN IV DECREASED GLUCOSE; Start 08/13/16 at 17:30 Glucagon (Glucagen) 1 mg Q15M PRN IM DECREASED GLUCOSE; Start 08/13/16 at 17:30 Glucose 15 gm 15 gm Q15M PRN BUCCAL DECREASED GLUCOSE; Start 08/13/16 at 17:30 Vancomycin HCl (Vancocin) 250 ml @ 125 mls/hr Q96H IVPB Last administered on 10:11; Admin Dose 125 MLS/HR; Start 08/16/16 at 10:00; Stop 08/24/16 at 16:00 Apixaban (Eliquis) 5 mg BID PO Last administered on 08/20/16 20:47; Admin Dose 5 MG; Start 08/17/16 at 21:00 Amikacin Sulfate (Amikacin Iv Per Pharmacy) AMIKACIN PER PHARMACY NOTE XX ; Start 08/18/16 at 16:30 Metoprolol Tartrate (Lopressor) 50 mg BID PO Last administered on 08/20/16 20: 49; Admin Dose 50 MG; Start 08/19/16 at 09:00 Phenol (Cepastat Lozenge) 1 lozenge Q1H PRN MT SORE THROAT Last administered on 08/19/16 18:56; Admin Dose 1 LOZENGE; Start 08/19/16 at 16:30 Diagnostic Test (Pha) (Accu-Chek) 1 ea 02 XX Last administered on 08/22/16 02: 00; Admin Dose 1 EA; Start 08/20/16 at 02:00 Nystatin 1 applic 1 applic BID TOP Last administered on 08/24/16 09:00; Admin Dose 1 APPLIC; Start 08/19/16 at 21:00 Dextrose/Sodium Chloride (D5-1/2ns) 1,000 ml @ 40 mls/hr Q24H IV Last administered on 08/23/16 04:48; Admin Dose 40 MLS/HR; Start 08/20/16 at 13:00 Diltiazem HCl 10 mg 10 mg Q4 PRN IV HR>120 Last administered on 08/22/16 16:37 ; Admin Dose 10 MG; Start 08/20/16 at 18:30 Fluconazole/ Sodium Chloride (Diflucan 100 Mg/ NS (Pmx)) 50 ml @ 50 mls/hr Q24H IVPB Last administered on 08/23/16 21:21; Admin Dose 50 MLS/HR; Start at 21:00 Nystatin (Nystatin Susp) 5 ml QID PO Last administered on 08/22/16 23:02; Admin Dose 5 ML; Start 08/21/16 at 21:00 Lorazepam (Ativan) 1 mg Q2 PRN IV ANXIETY Last administered on 08/22/16 03:03 ; Admin Dose 1 MG; Start 08/21/16 at 21:00 Digoxin 125 mcg 125 mcg AM IV Last administered on 08/24/16 10:10; Admin Dose 125 MCG; Start 08/23/16 at 14:30 Vancomycin HCl/ Sodium Chloride (Vancocin/NS) 150 ml @ 75 mls/hr Q96H IVPB ; Start 08/28/16 at 14:00 KOFI HUERTA Aug 24, 2016 10:23
[2016-08-24 10:26] LABS: LYMPHOCYTES # 0.2 10^3/ul (0.8-2.9); MONOCYTE # 0.1 10^3/ul (0.3-0.9); NEUTROPHIL # 7.7 10^3/ul (1.6-7.5)
--- NOTE | 2016-08-24 12:42 | RADRPT ---
PROCEDURE: XR Chest 1 View. CLINICAL INDICATION: Shortness of breath TECHNIQUE: AP view of the chest was obtained. COMPARISON: August 10, 2016 FINDINGS: The heart size is within normal limits. Calcified atherosclerosis is noted in the aorta. Right-side d dialysis catheter is stable. Central pulmonary vascular congestion and interstitial prominence is seen in both lungs. Retrocardiac opacity is noted. Patchy infiltrates are seen throughout the rig ht lung and/or combined with small pleural effusion. Osseous structures are intact. IMPRESSION: Calcified atherosclerosis in the aorta. Central pulmonary vascular congestion and interstitial prominence in both lungs. Retrocardiac opacity that may reflect left lower lobe atelectasis or infiltrate combined with small pleural effusion. Stable patchy infiltrates throughout the right lung and moderate right pleural effusion. RPTAT: AA .Fabricio Reyes MD, Date Time Electronically viewed and signed by .Fabricio Reyes MD, on 08/24/2016 12:41 .P/
[2016-08-24] MEDS: DEXTROSE 5%-0.45% NACL 1,000 ML IV SCH ×2 (13:00→22:04)
[2016-08-24] MEDS ORDERED: SOD CHLORIDE 0.9% 250 ML IV* ONE (14:09)
--- NOTE | 2016-08-24 14:09 | PN ---
Date/Time of Note Date/Time of Note DATE: 08/24/16 TIME: 14:04 Assessment/Plan VTE Prophylaxis VTE Prophylaxis Intervention: SCD's Lines/Catheters IV Catheter Type (from [facility]): permacath Urinary Cath still in place: No Assessment/Plan Chief Complaint/Hosp Course Assessment and plan: - Acute respiratory insufficiency secondary to pneumonia and pulmonary edema. - Sepsis with bacteremia. Dr. Eric is following in infection disease consultation. Continue antibiotics per ID. - Right-sided pneumonia. - A-fib with RVR, continue Cardizem and Eliquiz, patient is followed by Dr. Stuart in cardiology. - COPD exacerbation, continue breathing treatment. Dr. Natarajan is following in pulmonology consultation - End-stage renal disease stage V. Dr. Leon is following in nephrology consultation. Continue to hemodialysis via right femoral hemodialysis catheter. - Pulmonary edema. Continue to remove fluids with hemodialysis. - Pleural effusions, status post thoracentesis 2. - Anemia of chronic kidney disease. - Diabetes mellitus type [address] Garcia is following an endocrinology consultation. - Hypertension, continue Norvasc. -Left upper extremity AV fistula, non-matured -Status post right hemodialysis non-tunneled catheter placement by Dr. Manning on 08/03. S/p R IJ tunneled hemodialysis catheter placement. Further recommendations based on clinical course. Plan of care discussed with Dr. Flores Problems: Subjective 24 Hr Interval Summary Free Text/Dictation Patient remains on BiPAP, status post hemodialysis yesterday, stated that she feels better. Hemoglobin is 7.8. Will transfuse 2 units of packed red blood cells. Exam/Review of Systems Vital Signs Vitals Vital Signs Date Time Temp Pulse Resp B/P Pulse Ox O2 Delivery O2 Flow Rate FiO2 08/24/16 12:19 102 08/24/16 11:24 98.4 19 148/52 100 08/24/16 08:05 50 08/23/16 12:44 15.0 08/22/16 13:38 Venti Mask Intake and Output 08/23/16 08/23/16 08/24/16 15:00 23:00 07:00 Intake Total 651.1 ml 400 ml Output Total 2500 ml Balance -1848.9 ml 400 ml Exam Constitutional: alert, oriented Psych: no complaints Head: atraumatic, normocephalic Eyes: nl conjunctiva ENMT: nl external ears & nose, nl lips & teeth Neck: non-tender, supple Respiratory: Rhonchi bilaterally, diminished air entry bilaterally. Cardiovascular: nl pulses, regular rate and rhythm Gastrointestinal: non-tender, soft Musculoskeletal: nl extremities to inspection Extremities: normal pulses 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: UM NURSE II-XII intact Additional Comments Left upper extremities with AV fistula with palpable thrill and audible bruit Right IJ permacath Results Result Diagram: 08/24/16 0845 08/24/16 0700 Results 24 hrs Laboratory Tests Test 08/23/16 16:54 08/23/16 21:30 08/24/16 07:00 08/24/16 07:58 Bedside Glucose 139 130 122 Blood Gas Specimen Source Blood arterial Arterial Blood Date Drawn 08/24/2016 8:47:00 AM Arterial Blood pH (Temp corrected) 7.440 Arterial Blood pCO2 (Temp correct) 40.0 Arterial Blood pO2 (Temp corrected) 86.5 Arterial Blood HCO3 26.6 H Arterial Blood Base Excess 2.2 Arterial Blood Oxygen Saturation 96.2 Chris Test ACCEPTAB Arterial Blood Gas Puncture Site Right Radial Arterial Blood Carboxyhemoglobin 0.1 Arterial Blood Methemoglobin 0.3 Blood Gas A-a O2 Differential 225.0 H Oxyhemoglobin Percent 95.8 Total Hemoglobin 7.5 L Blood Gas Temperature 37.0 Blood Gas Respiration Rate 14.0 Blood Gas Actual Respiration Rate 24 Blood Gas Modality MASK - BIPAP FiO2 50.0 Blood Gas IPAP/EPAP Ratio 12/6 Blood Gas Notified Whom JLD Blood Gas Notified Time 08/24/2016 9:08:00 AM Sodium Level 136 Potassium Level 4.6 Chloride Level 105 Carbon Dioxide Level 19 L Anion Gap 17 #H Blood Urea Nitrogen 30 H Creatinine 2.18 #H Glucose Level 105 Calcium Level 7.0 L Phosphorus Level 4.9 Magnesium Level 2.1 Test 08/24/16 08:45 08/24/16 11:32 White Blood Count 8.0 # Red Blood Count 2.72 L Hemoglobin 7.8 L Hematocrit 26.1 L Mean Corpuscular Volume 96.0 Mean Corpuscular Hemoglobin 28.7 L Mean Corpuscular Hemoglobin Concent 29.9 L Red Cell Distribution Width 14.7 H Platelet Count 128 L Mean Platelet Volume 10.7 H Neutrophils % 96.0 H Band Neutrophils % 1.0 Lymphocytes % 2.0 L Monocytes % 1.0 Neutrophils # 7.7 H Lymphocytes # 0.2 L Monocytes # 0.1 L Vancomycin Level Trough 16.0 Bedside Glucose 117 Medications Medications Current Medications Atorvastatin Calcium (Lipitor) 40 mg HS PO Last administered on 08/20/16 20:47 ; Admin Dose 40 MG; Start 08/01/16 at 21:00 Calcitriol (Rocaltrol) 0.25 mcg DAILY PO Last administered on 08/20/16 08:40; Admin Dose 0.25 MCG; Start 08/01/16 at 09:00 Calcium/Vitamin D (Oyster Shell/ Vit-D (500/200)) 1 tab BID PO Last administered on 08/20/16 20:47; Admin Dose 1 TAB; Start 08/01/16 at 09:00 Hydralazine HCl (Apresoline) 50 mg Q8 PO Last administered on 08/20/16 06:01; Admin Dose 50 MG; Start 08/01/16 at 06:00 Paroxetine HCl (Paxil) 10 mg DAILY PO Last administered on 08/20/16 08:42; Admin Dose 10 MG; Start 08/01/16 at 09:00 Acetaminophen (Tylenol Tab) 650 mg Q4H PRN PO PAIN AND OR ELEVATED TEMP Last administered on 08/19/16 08:55; Admin Dose 650 MG; Start 08/01/16 at 00:30 Hydralazine HCl (Apresoline) 20 mg Q6H PRN IV ELEVATED BLOOD PRESSURE Last administered on 08/09/16 03:50; Admin Dose 20 MG; Start 08/01/16 at 00:30 Guaifenesin/ Dextromethorphan (Robitussin Dm Liquid Cup) 10 ml Q4H PRN PO COUGH Last administered on 08/20/16 21:07; Admin Dose 10 ML; Start 08/01/16 at 00:30 Epoetin Braden (Epogen (Esrd)) 6,000 units MoWeFr@17 SC Last administered on 08/23 21:20; Admin Dose 6,000 UNITS; Start 08/02/16 at 17:00 Linagliptin (Tradjenta) 5 mg DAILY PO Last administered on 08/20/16 08:42; Admin Dose 5 MG; Start 08/04/16 at 20:00 Salmeterol Xinafoate/ Fluticasone (Advair 250/50 Diskus) 1 inh BID INH Last administered on 08/23/16 21:20; Admin Dose 1 INH; Start 08/08/16 at 11:00 Montelukast Sodium (Singulair) 10 mg HS PO Last administered on 08/20/16 20:47 ; Admin Dose 10 MG; Start 08/08/16 at 21:00 Tiotropium [place] (Spiriva) 1 inh DAILY INH Last administered on 08/22/16 09: 00; Admin Dose 1 INH; Start 08/08/16 at 11:00 Miscellaneous Information 1 ea NOTE XX ; Start 08/13/16 at 17:30 Glucose (Glutose) 15 gm Q15M PRN PO DECREASED GLUCOSE; Start 08/13/16 at 17:30 Glucose (Glutose) 22.5 gm Q15M PRN PO DECREASED GLUCOSE; Start 08/13/16 at 17:30 Dextrose (D50w Syringe) 25 ml Q15M PRN IV DECREASED GLUCOSE; Start 08/13/16 at 17:30 Dextrose (D50w Syringe) 50 ml Q15M PRN IV DECREASED GLUCOSE; Start 08/13/16 at 17:30 Glucagon (Glucagen) 1 mg Q15M PRN IM DECREASED GLUCOSE; Start 08/13/16 at 17:30 Glucose 15 gm 15 gm Q15M PRN BUCCAL DECREASED GLUCOSE; Start 08/13/16 at 17:30 Vancomycin HCl (Vancocin) 250 ml @ 125 mls/hr Q96H IVPB Last administered on 10:11; Admin Dose 125 MLS/HR; Start 08/16/16 at 10:00; Stop 08/24/16 at 16:00 Apixaban (Eliquis) 5 mg BID PO Last administered on 08/20/16 20:47; Admin Dose 5 MG; Start 08/17/16 at 21:00 Amikacin Sulfate (Amikacin Iv Per Pharmacy) AMIKACIN PER PHARMACY NOTE XX ; Start 08/18/16 at 16:30 Metoprolol Tartrate (Lopressor) 50 mg BID PO Last administered on 08/20/16 20: 49; Admin Dose 50 MG; Start 08/19/16 at 09:00 Phenol (Cepastat Lozenge) 1 lozenge Q1H PRN MT SORE THROAT Last administered on 08/19/16 18:56; Admin Dose 1 LOZENGE; Start 08/19/16 at 16:30 Diagnostic Test (Pha) (Accu-Chek) 1 ea 02 XX Last administered on 08/22/16 02: 00; Admin Dose 1 EA; Start 08/20/16 at 02:00 Nystatin 1 applic 1 applic BID TOP Last administered on 08/24/16 09:00; Admin Dose 1 APPLIC; Start 08/19/16 at 21:00 Dextrose/Sodium Chloride (D5-1/2ns) 1,000 ml @ 40 mls/hr Q24H IV Last administered on 08/23/16 04:48; Admin Dose 40 MLS/HR; Start 08/20/16 at 13:00 Diltiazem HCl 10 mg 10 mg Q4 PRN IV HR>120 Last administered on 08/22/16 16:37 ; Admin Dose 10 MG; Start 08/20/16 at 18:30 Fluconazole/ Sodium Chloride (Diflucan 100 Mg/ NS (Pmx)) 50 ml @ 50 mls/hr Q24H IVPB Last administered on 08/23/16 21:21; Admin Dose 50 MLS/HR; Start at 21:00 Nystatin (Nystatin Susp) 5 ml QID PO Last administered on 08/22/16 23:02; Admin Dose 5 ML; Start 08/21/16 at 21:00 Lorazepam (Ativan) 1 mg Q2 PRN IV ANXIETY Last administered on 08/22/16 03:03 ; Admin Dose 1 MG; Start 08/21/16 at 21:00 Digoxin 125 mcg 125 mcg AM IV Last administered on 08/24/16 10:10; Admin Dose 125 MCG; Start 08/23/16 at 14:30 Vancomycin HCl/ Sodium Chloride (Vancocin/NS) 150 ml @ 75 mls/hr Q96H IVPB ; Start 08/28/16 at 14:00 BRYANT PERALTA Aug 24, 2016 14:09
--- NOTE | 2016-08-24 18:07 | CONS ---
Date/Time of Note Date/Time of Note DATE: 08/24/16 TIME: 18:07 Assessment/Plan Assessment/Plan Chief Complaint/Hosp Course IMPRESSION: 1. End-stage renal disease stage V. 2. Fluid overload.better 3. Pulmonary edema./pleural effusion/lung infilterate s/p thoracenresis 4. Anemia of chronic kidney disease. 5. History of diabetes mellitus. 6. 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 7. AV fistula on the left upper extremity. 8 pneumonia/bronchites 9 thoracentesis s/p 10 s/p arrthymia plan continue hd fluis res antibiotic per pulmonary per cardio to control rate Problems: Consultation Date/Type/Reason Admit Date/Time Jul 31, 2016 at 19:59 Initial Consult Date 08/01/16 Type of Consultation: renal Referring Provider: LALA ORO 24 HR Interval Summary Constitutional: other (sob better) Exam/Review of Systems Vital Signs Vitals Vital Signs Date Time Temp Pulse Resp B/P Pulse Ox O2 Delivery O2 Flow Rate FiO2 08/24/16 17:04 15.0 08/24/16 16:12 111 08/24/16 16:00 19 08/24/16 15:13 98.2 140/50 95 08/24/16 14:00 Aerosol Mask 08/24/16 08:05 50 Intake and Output 08/23/16 08/23/16 08/24/16 15:00 23:00 07:00 Intake Total 651.1 ml 400 ml Output Total 2500 ml Balance -1848.9 ml 400 ml Exam Neck: supple Cardiovascular: regular rate and rhythm Gastrointestinal: soft Musculoskeletal: nl extremities to inspection Extremities: normal pulses Results Result Diagram: 08/24/16 0845 08/24/16 0700 Results 24 hrs Laboratory Tests Test 08/23/16 21:30 08/24/16 07:00 08/24/16 07:58 08/24/16 08:45 Bedside Glucose 130 122 Blood Gas Specimen Source Blood arterial Arterial Blood Date Drawn 08/24/2016 8:47:00 AM Arterial Blood pH (Temp corrected) 7.440 Arterial Blood pCO2 (Temp correct) 40.0 Arterial Blood pO2 (Temp corrected) 86.5 Arterial Blood HCO3 26.6 H Arterial Blood Base Excess 2.2 Arterial Blood Oxygen Saturation 96.2 Chris Test ACCEPTAB Arterial Blood Gas Puncture Site Right Radial Arterial Blood Carboxyhemoglobin 0.1 Arterial Blood Methemoglobin 0.3 Blood Gas A-a O2 Differential 225.0 H Oxyhemoglobin Percent 95.8 Total Hemoglobin 7.5 L Blood Gas Temperature 37.0 Blood Gas Respiration Rate 14.0 Blood Gas Actual Respiration Rate 24 Blood Gas Modality MASK - BIPAP FiO2 50.0 Blood Gas IPAP/EPAP Ratio 12/6 Blood Gas Notified Whom JLD Blood Gas Notified Time 08/24/2016 9:08:00 AM Sodium Level 136 Potassium Level 4.6 Chloride Level 105 Carbon Dioxide Level 19 L Anion Gap 17 #H Blood Urea Nitrogen 30 H Creatinine 2.18 #H Glucose Level 105 Calcium Level 7.0 L Phosphorus Level 4.9 Magnesium Level 2.1 White Blood Count 8.0 # Red Blood Count 2.72 L Hemoglobin 7.8 L Hematocrit 26.1 L Mean Corpuscular Volume 96.0 Mean Corpuscular Hemoglobin 28.7 L Mean Corpuscular Hemoglobin Concent 29.9 L Red Cell Distribution Width 14.7 H Platelet Count 128 L Mean Platelet Volume 10.7 H Neutrophils % 96.0 H Band Neutrophils % 1.0 Lymphocytes % 2.0 L Monocytes % 1.0 Neutrophils # 7.7 H Lymphocytes # 0.2 L Monocytes # 0.1 L Vancomycin Level Trough 16.0 Test 08/24/16 11:32 08/24/16 17:45 Bedside Glucose 117 135 Medications Medications Current Medications Atorvastatin Calcium (Lipitor) 40 mg HS PO Last administered on 08/20/16 20:47 ; Admin Dose 40 MG; Start 08/01/16 at 21:00 Calcitriol (Rocaltrol) 0.25 mcg DAILY PO Last administered on 08/20/16 08:40; Admin Dose 0.25 MCG; Start 08/01/16 at 09:00 Calcium/Vitamin D (Oyster Shell/ Vit-D (500/200)) 1 tab BID PO Last administered on 08/20/16 20:47; Admin Dose 1 TAB; Start 08/01/16 at 09:00 Hydralazine HCl (Apresoline) 50 mg Q8 PO Last administered on 08/20/16 06:01; Admin Dose 50 MG; Start 08/01/16 at 06:00 Paroxetine HCl (Paxil) 10 mg DAILY PO Last administered on 08/20/16 08:42; Admin Dose 10 MG; Start 08/01/16 at 09:00 Acetaminophen (Tylenol Tab) 650 mg Q4H PRN PO PAIN AND OR ELEVATED TEMP Last administered on 08/19/16 08:55; Admin Dose 650 MG; Start 08/01/16 at 00:30 Hydralazine HCl (Apresoline) 20 mg Q6H PRN IV ELEVATED BLOOD PRESSURE Last administered on 08/09/16 03:50; Admin Dose 20 MG; Start 08/01/16 at 00:30 Guaifenesin/ Dextromethorphan (Robitussin Dm Liquid Cup) 10 ml Q4H PRN PO COUGH Last administered on 08/20/16 21:07; Admin Dose 10 ML; Start 08/01/16 at 00:30 Epoetin Braden (Epogen (Esrd)) 6,000 units MoWeFr@17 SC Last administered on 08/23 21:20; Admin Dose 6,000 UNITS; Start 08/02/16 at 17:00 Linagliptin (Tradjenta) 5 mg DAILY PO Last administered on 08/20/16 08:42; Admin Dose 5 MG; Start 08/04/16 at 20:00 Salmeterol Xinafoate/ Fluticasone (Advair 250/50 Diskus) 1 inh BID INH Last administered on 08/23/16 21:20; Admin Dose 1 INH; Start 08/08/16 at 11:00 Montelukast Sodium (Singulair) 10 mg HS PO Last administered on 08/20/16 20:47 ; Admin Dose 10 MG; Start 08/08/16 at 21:00 Tiotropium [place] (Spiriva) 1 inh DAILY INH Last administered on 08/22/16 09: 00; Admin Dose 1 INH; Start 08/08/16 at 11:00 Miscellaneous Information 1 ea NOTE XX ; Start 08/13/16 at 17:30 Glucose (Glutose) 15 gm Q15M PRN PO DECREASED GLUCOSE; Start 08/13/16 at 17:30 Glucose (Glutose) 22.5 gm Q15M PRN PO DECREASED GLUCOSE; Start 08/13/16 at 17:30 Dextrose (D50w Syringe) 25 ml Q15M PRN IV DECREASED GLUCOSE; Start 08/13/16 at 17:30 Dextrose (D50w Syringe) 50 ml Q15M PRN IV DECREASED GLUCOSE; Start 08/13/16 at 17:30 Glucagon (Glucagen) 1 mg Q15M PRN IM DECREASED GLUCOSE; Start 08/13/16 at 17:30 Glucose (Glutose) 15 gm Q15M PRN BUCCAL DECREASED GLUCOSE; Start 08/13/16 at 17: 30 Apixaban (Eliquis) 5 mg BID PO Last administered on 08/20/16 20:47; Admin Dose 5 MG; Start 08/17/16 at 21:00 Metoprolol Tartrate (Lopressor) 50 mg BID PO Last administered on 08/20/16 20: 49; Admin Dose 50 MG; Start 08/19/16 at 09:00 Phenol (Cepastat Lozenge) 1 lozenge Q1H PRN MT SORE THROAT Last administered on 08/19/16 18:56; Admin Dose 1 LOZENGE; Start 08/19/16 at 16:30 Diagnostic Test (Pha) (Accu-Chek) 1 ea 02 XX Last administered on 08/22/16 02: 00; Admin Dose 1 EA; Start 08/20/16 at 02:00 Nystatin 1 applic 1 applic BID TOP Last administered on 08/24/16 09:00; Admin Dose 1 APPLIC; Start 08/19/16 at 21:00 Dextrose/Sodium Chloride (D5-1/2ns) 1,000 ml @ 40 mls/hr Q24H IV Last administered on 08/23/16 04:48; Admin Dose 40 MLS/HR; Start 08/20/16 at 13:00 Diltiazem HCl 10 mg 10 mg Q4 PRN IV HR>120 Last administered on 08/22/16 16:37 ; Admin Dose 10 MG; Start 08/20/16 at 18:30 Fluconazole/ Sodium Chloride (Diflucan 100 Mg/ NS (Pmx)) 50 ml @ 50 mls/hr Q24H IVPB Last administered on 08/23/16 21:21; Admin Dose 50 MLS/HR; Start at 21:00 Nystatin (Nystatin Susp) 5 ml QID PO Last administered on 08/22/16 23:02; Admin Dose 5 ML; Start 08/21/16 at 21:00 Lorazepam (Ativan) 1 mg Q2 PRN IV ANXIETY Last administered on 08/22/16 03:03 ; Admin Dose 1 MG; Start 08/21/16 at 21:00 Digoxin (Digoxin) 125 mcg AM IV Last administered on 08/24/16 10:10; Admin Dose 125 MCG; Start 08/23/16 at 14:30 DAT OLSON MD Aug 24, 2016 18:07
--- NOTE | 2016-08-24 18:07 | PN ---
DATE: 08/24/2016 SUBJECTIVE: No events. The patient is awake on BiPAP, son at bedside. No fevers. LABORATORY DATA: WBC 8, platelets 128. MICROBIOLOGY: Repeat blood cultures negative. DIAGNOSTICS: Chest x-ray this morning revealed stable patchy infiltrates. ANTIMICROBIALS: She is on: 1. Amikacin 2. Vancomycin. 3. Fluconazole. INDWELLINGS: Right IJ PermCath. PHYSICAL EXAMINATION: GENERAL: Chronically ill-appearing, elderly woman who is awake, in no distress. HEENT: Head atraumatic, normocephalic. Sclerae anicteric. Buccal mucosa dry. NECK: Supple, trachea midline. CHEST: Rise symmetrical. Breath sounds with bilateral crackles. HEART: S1, S2. ABDOMEN: Soft, bowel sounds present. EXTREMITIES: With trace edema. ASSESSMENT: 1. Acute respiratory failure secondary to fluid overload. 2. Status post pneumonia, sepsis and bacteremia. 3. Ongoing pulmonary edema. 4. Oropharyngeal candidiasis, on Diflucan. 5. End-stage renal disease, hemodialysis dependent. PLAN: The patient remains unchanged. She is DNI status. She completed treatment for pneumonia and we are going to stop her antibiotics today. We will keep her on Diflucan for candidiasis. We will continue nystatin orally. Follow recommendations of consultants. Dictated By: NAHUN DOWNEY [employer] for [employer] Conf#: [id number] DID#: [id number]
--- NOTE | 2016-08-24 20:43 | CONS ---
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 Cont. linagliptin Qualifiers: Diabetes mellitus [facility] insulin use: with [facility] use Chronic kidney disease stage: stage 5, not on chronic dialysis Qualified Code: E11.22 - Type 2 diabetes mellitus with stage 5 chronic kidney disease not on chronic dialysis, with long-term current use of insulin Consultation Date/Type/Reason Admit Date/Time Jul 31, 2016 at 19:59 Initial Consult Date 08/06/16 Type of Consultation: Endocrinology Reason for Consultation T2DM management Referring Provider: LALA ORO 24 HR Interval Summary Subjective hx not possible: pt non-verbal (awake but apparently too tired to speak) Exam/Review of Systems Vital Signs Vitals VS - Last 72 Hours, by Label Date Time Temp Pulse Resp B/P Pulse Ox O2 Delivery O2 Flow Rate FiO2 08/24/16 20:10 106 08/24/16 20:07 91 15.0 100 08/24/16 19:56 103 26 92 Non Rebreather Mask 15.0 100 08/24/16 19:00 100 08/24/16 19:00 100 17 08/24/16 18:30 89 08/24/16 18:00 87 08/24/16 17:30 94 08/24/16 17:04 15.0 08/24/16 17:00 92 08/24/16 16:30 111 08/24/16 16:12 111 08/24/16 16:00 110 19 08/24/16 16:00 139 99 50 08/24/16 16:00 110 08/24/16 15:13 98.2 114 19 140/50 95 08/24/16 14:22 122 98 50 08/24/16 14:00 28 90 Aerosol Mask 8.0 08/24/16 12:19 102 08/24/16 11:24 98.4 79 19 148/52 100 08/24/16 11:11 106 97 50 08/24/16 09:44 100 99 50 08/24/16 08:18 106 08/24/16 08:05 107 98 50 08/24/16 07:42 98.2 106 20 146/51 97 4/18/17 06:03 102 97 50 18/17 04:13 112 418/17 04:00 98.0 109 20 168/67 99 18/17 01:54 96 100 65 18/17 00:11 113 18/17 00:00 98.0 86 20 139/54 100 17/17 22:20 97 75 17/17 20:27 99 75 17/17 20:13 118 17/17 20:00 97.6 88 18 112/54 98 17/17 19:50 93 75 17/17 19:40 88 22 17/17 19:40 85 17/17 19:20 89 17/17 19:00 91 17/17 18:40 88 17/17 18:20 90 17/17 18:00 93 17/17 17:40 62 22 17/17 17:40 88 17/17 16:39 100 75 17/17 16:32 105 17/17 13:20 33 82 100 17/17 13:20 82 100 17/17 12:44 96 15.0 50 17/17 12:14 101 17/17 11:20 99.3 75 27 152/57 98 17/17 08:34 102 17/17 07:48 98.6 101 24 142/65 98 17/17 07:34 107 98 60 17/17 07:34 107 20 98 60 17/17 06:25 98 95 60 17/17 04:34 102 17/17 04:14 98.4 96 24 150/56 94 17/17 03:20 97 96 60 417/17 01:20 101 94 60 417/17 00:27 104 16/17 23:53 98.8 86 21 150/54 95 16/17 23:30 96 94 60 416/17 22:03 97 96 60 416/17 21:10 110 93 60 416/17 20:32 120 416/17 20:00 98.6 102 23 169/59 97 16/17 19:53 91 23 96 60 416/17 19:50 91 96 60 4/16/17 18:06 146 26 08/22/16 17:28 141 08/22/16 17:17 140 08/22/16 17:00 146 08/22/16 16:45 146 08/22/16 16:30 65 08/22/16 16:26 127 08/22/16 16:15 142 08/22/16 16:00 122 08/22/16 15:50 113 93 60 08/22/16 15:45 119 08/22/16 15:20 133 08/22/16 15:15 77 08/22/16 15:15 142 26 08/22/16 15:10 98.8 133 35 115/58 95 08/22/16 14:00 120 91 60 08/22/16 13:38 88 26 93 Venti Mask 15.0 50 08/22/16 12:21 105 08/22/16 11:25 Venti Mask 15.0 08/22/16 11:16 99.2 120 29 138/48 96 08/22/16 11:00 118 95 60 08/22/16 09:30 89 96 60 08/22/16 08:28 118 08/22/16 08:20 128 89 60 08/22/16 08:06 92 23 91 Venti Mask 15.0 50 08/22/16 07:38 98.7 106 22 138/49 98 08/22/16 05:26 15.0 08/22/16 04:14 87 08/22/16 03:37 97.9 99 18 133/60 93 08/22/16 01:08 96 22 93 Venti Mask 15.0 50 08/22/16 00:47 97 08/21/16 23:22 98.1 70 21 117/57 96 08/21/16 23:01 99 97 60 Vital Signs Date Time Temp Pulse Resp B/P Pulse Ox O2 Delivery O2 Flow Rate FiO2 08/24/16 20:10 106 08/24/16 20:07 91 15.0 100 08/24/16 19:56 26 Non Rebreather Mask 08/24/16 15:13 98.2 140/50 Intake and Output 08/23/16 08/23/16 08/24/16 15:00 23:00 07:00 Intake Total 651.1 ml 400 ml Output Total 2500 ml Balance -1848.9 ml 400 ml Exam Constitutional: alert, frail, non-verbal Respiratory: clear to auscultation, labored breathing, normal air movement Cardiovascular: irregular rhythm (and tachycardic) Gastrointestinal: nl liver, spleen, non-tender, soft Musculoskeletal: nl extremities to inspection Extremities: No clubbing, No cyanosis, No edema 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: [employer] II-XII intact, lethargic, nl mental status, nl speech, nl strength Additional Comments Bedside Glucose - 72 Hours Test 08/21/16 21:58 08/22/16 02:50 08/22/16 07:25 08/22/16 11:42 Bedside Glucose 169mg/dL (70-220) 183mg/dL (70-220) 165mg/dL (70-220) 169mg/dL (70-220) Test 08/22/16 18:09 08/22/16 20:52 08/23/16 07:43 08/23/16 11:34 Bedside Glucose 147mg/dL (70-220) 125mg/dL (70-220) 110mg/dL (70-220) 110mg/dL (70-220) Test 08/23/16 16:54 08/23/16 21:30 08/24/16 07:58 08/24/16 11:32 Bedside Glucose 139mg/dL (70-220) 130mg/dL (70-220) 122mg/dL (70-220) 117mg/dL (70-220) Test 08/24/16 17:45 Bedside Glucose 135mg/dL (70-220) Results Result Diagram: 08/24/16 0845 08/24/16 0700 Results 24 hrs Laboratory Tests Test 08/23/16 21:30 08/24/16 07:00 08/24/16 07:58 08/24/16 08:45 Bedside Glucose 130 122 Blood Gas Specimen Source Blood arterial Arterial Blood Date Drawn 08/24/2016 8:47:00 AM Arterial Blood pH (Temp corrected) 7.440 Arterial Blood pCO2 (Temp correct) 40.0 Arterial Blood pO2 (Temp corrected) 86.5 Arterial Blood HCO3 26.6 H Arterial Blood Base Excess 2.2 Arterial Blood Oxygen Saturation 96.2 Chris Test ACCEPTAB Arterial Blood Gas Puncture Site Right Radial Arterial Blood Carboxyhemoglobin 0.1 Arterial Blood Methemoglobin 0.3 Blood Gas A-a O2 Differential 225.0 H Oxyhemoglobin Percent 95.8 Total Hemoglobin 7.5 L Blood Gas Temperature 37.0 Blood Gas Respiration Rate 14.0 Blood Gas Actual Respiration Rate 24 Blood Gas Modality MASK - BIPAP FiO2 50.0 Blood Gas IPAP/EPAP Ratio 12 Blood Gas Notified Whom JLD Blood Gas Notified Time 08/24/2016 9:08:00 AM Sodium Level 136 Potassium Level 4.6 Chloride Level 105 Carbon Dioxide Level 19 L Anion Gap 17 #H Blood Urea Nitrogen 30 H Creatinine 2.18 #H Glucose Level 105 Calcium Level 7.0 L Phosphorus Level 4.9 Magnesium Level 2.1 White Blood Count 8.0 # Red Blood Count 2.72 L Hemoglobin 7.8 L Hematocrit 26.1 L Mean Corpuscular Volume 96.0 Mean Corpuscular Hemoglobin 28.7 L Mean Corpuscular Hemoglobin Concent 29.9 L Red Cell Distribution Width 14.7 H Platelet Count 128 L Mean Platelet Volume 10.7 H Neutrophils % 96.0 H Band Neutrophils % 1.0 Lymphocytes % 2.0 L Monocytes % 1.0 Neutrophils # 7.7 H Lymphocytes # 0.2 L Monocytes # 0.1 L Vancomycin Level Trough 16.0 Test 08/24/16 11:32 08/24/16 17:45 Bedside Glucose 117 135 Medications Medications Current Medications Atorvastatin Calcium (Lipitor) 40 mg HS PO Last administered on 08/20/16 20:47 ; Admin Dose 40 MG; Start 08/01/16 at 21:00 Calcitriol (Rocaltrol) 0.25 mcg DAILY PO Last administered on 08/20/16 08:40; Admin Dose 0.25 MCG; Start 08/01/16 at 09:00 Calcium/Vitamin D (Oyster Shell/ Vit-D (500/200)) 1 tab BID PO Last administered on 08/20/16 20:47; Admin Dose 1 TAB; Start 08/01/16 at 09:00 Hydralazine HCl (Apresoline) 50 mg Q8 PO Last administered on 08/20/16 06:01; Admin Dose 50 MG; Start 08/01/16 at 06:00 Paroxetine HCl (Paxil) 10 mg DAILY PO Last administered on 08/20/16 08:42; Admin Dose 10 MG; Start 08/01/16 at 09:00 Acetaminophen (Tylenol Tab) 650 mg Q4H PRN PO PAIN AND OR ELEVATED TEMP Last administered on 08/19/16 08:55; Admin Dose 650 MG; Start 08/01/16 at 00:30 Hydralazine HCl (Apresoline) 20 mg Q6H PRN IV ELEVATED BLOOD PRESSURE Last administered on 08/09/16 03:50; Admin Dose 20 MG; Start 08/01/16 at 00:30 Guaifenesin/ Dextromethorphan (Robitussin Dm Liquid Cup) 10 ml Q4H PRN PO COUGH Last administered on 08/20/16 21:07; Admin Dose 10 ML; Start 08/01/16 at 00:30 Epoetin Braden (Epogen (Esrd)) 6,000 units MoWeFr@17 SC Last administered on 08/23 21:20; Admin Dose 6,000 UNITS; Start 08/02/16 at 17:00 Linagliptin (Tradjenta) 5 mg DAILY PO Last administered on 08/20/16 08:42; Admin Dose 5 MG; Start 08/04/16 at 20:00 Salmeterol Xinafoate/ Fluticasone (Advair 250/50 Diskus) 1 inh BID INH Last administered on 08/23/16 21:20; Admin Dose 1 INH; Start 08/08/16 at 11:00 Montelukast Sodium (Singulair) 10 mg HS PO Last administered on 08/20/16 20:47 ; Admin Dose 10 MG; Start 08/08/16 at 21:00 Tiotropium [place] (Spiriva) 1 inh DAILY INH Last administered on 08/22/16 09: 00; Admin Dose 1 INH; Start 08/08/16 at 11:00 Miscellaneous Information 1 ea NOTE XX ; Start 08/13/16 at 17:30 Glucose (Glutose) 15 gm Q15M PRN PO DECREASED GLUCOSE; Start 08/13/16 at 17:30 Glucose (Glutose) 22.5 gm Q15M PRN PO DECREASED GLUCOSE; Start 08/13/16 at 17:30 Dextrose (D50w Syringe) 25 ml Q15M PRN IV DECREASED GLUCOSE; Start 08/13/16 at 17:30 Dextrose (D50w Syringe) 50 ml Q15M PRN IV DECREASED GLUCOSE; Start 08/13/16 at 17:30 Glucagon (Glucagen) 1 mg Q15M PRN IM DECREASED GLUCOSE; Start 08/13/16 at 17:30 Glucose (Glutose) 15 gm Q15M PRN BUCCAL DECREASED GLUCOSE; Start 08/13/16 at 17: 30 Apixaban (Eliquis) 5 mg BID PO Last administered on 08/20/16 20:47; Admin Dose 5 MG; Start 08/17/16 at 21:00 Metoprolol Tartrate (Lopressor) 50 mg BID PO Last administered on 08/20/16 20: 49; Admin Dose 50 MG; Start 08/19/16 at 09:00 Phenol (Cepastat Lozenge) 1 lozenge Q1H PRN MT SORE THROAT Last administered on 08/19/16 18:56; Admin Dose 1 LOZENGE; Start 08/19/16 at 16:30 Diagnostic Test (Pha) (Accu-Chek) 1 ea 02 XX Last administered on 08/22/16 02: 00; Admin Dose 1 EA; Start 08/20/16 at 02:00 Nystatin 1 applic 1 applic BID TOP Last administered on 08/24/16 09:00; Admin Dose 1 APPLIC; Start 08/19/16 at 21:00 Dextrose/Sodium Chloride (D5-1/2ns) 1,000 ml @ 40 mls/hr Q24H IV Last administered on 08/23/16 04:48; Admin Dose 40 MLS/HR; Start 08/20/16 at 13:00 Diltiazem HCl 10 mg 10 mg Q4 PRN IV HR>120 Last administered on 08/22/16 16:37 ; Admin Dose 10 MG; Start 08/20/16 at 18:30 Fluconazole/ Sodium Chloride (Diflucan 100 Mg/ NS (Pmx)) 50 ml @ 50 mls/hr Q24H IVPB Last administered on 08/23/16 21:21; Admin Dose 50 MLS/HR; Start at 21:00 Nystatin (Nystatin Susp) 5 ml QID PO Last administered on 08/22/16 23:02; Admin Dose 5 ML; Start 08/21/16 at 21:00 Lorazepam (Ativan) 1 mg Q2 PRN IV ANXIETY Last administered on 08/22/16 03:03 ; Admin Dose 1 MG; Start 08/21/16 at 21:00 Digoxin (Digoxin) 125 mcg AM IV Last administered on 08/24/16t 10:10; Admin Dose 125 MCG; Start 08/23/16 at 14:30 JUDAH NOE MD Aug 24, 2016 20:43
[2016-08-24] MEDS: DILTIAZEM 25 MG INJ IV PRN (20:59)
[2016-08-24] MEDS: ATORVASTATIN 40 MG TAB PO SCH (21:00)
[2016-08-24] MEDS: MONTELUKAST 10 MG TAB PO SCH (21:00)
[2016-08-24 21:32] LABS: AADO2 Arterial 637.4 mmHg (7.0-24.0); Allen Test ACCEPTAB; Arterial COHb 0.1 % (0.0-3.0); Arterial Fraction of Oxyhgb 78.1 % (93.0-99.0); Arterial HCO3 26.8 mmol/L (22.0-26.0); Arterial MetHb 0.4 % (0.0-1.5); Arterial Total Hemglobin 10.7 g/dl (12.0-18.0); Blood Gas IEPAP 15/6; Blood Gas PS 9; MODE MASK - BIPAP
[2016-08-24] MEDS: FLUCONAZOLE 100 MG/NS (PMX) 50 ML IVPB SCH (22:04)
[2016-08-25] VITALS (25 sets, daily range): BP systolic 114–164; BP diastolic 46–79; PULSE 100–112; RESP 16–20
[2016-08-25] MEDS: ACCUCHECK AT 2AM (Patients on SS coverage) XX SCH (00:29)
[2016-08-25] MEDS: ALBUTEROL/IPRATROPIUM (NEB) 3 ML AMP HHN SCH ×4 (01:50→19:27)
[2016-08-25] MEDS: FUROSEMIDE 40 MG INJ IV SCH ×2 (06:00→18:00)
--- NOTE | 2016-08-25 07:20 | PN ---
Date/Time of Note Date/Time of Note DATE: 08/25/16 TIME: 07:18 Assessment/Plan Lines/Catheters IV Catheter Type (from [facility]): Permacath` Chavez in Place (from Nrs): No Assessment/Plan Chief Complaint/Hosp Course -Chronic kidney disease stage V, impending end-stage renal disease: Fistula has not fully matured yet. S/P Maurice Catheter, S/P R IJ perm catheter -Bilateral lower extremity atherosclerosis: Will continue our vascular surveillance. No further intervention is needed at this time and will follow as an outpatient. -Continue with pulmonary toiletry -Optimize vascular status (blood pressure medications, diet, nutrition, exercise , sugar control, antiplatelets). -Discussed findings, plan and management with the patient. 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 -Thank you for allowing us to partake in the care of your patient. Please call with any questions. Problems: Subjective 24 Hr Interval Summary no new vascular events overnight, tolerating HD Exam/Review of Systems Vital Signs Vitals Vital Signs Date Time Temp Pulse Resp B/P Pulse Ox O2 Delivery O2 Flow Rate FiO2 08/25/16 05:46 107 98 100 08/25/16 04:27 98.6 20 138/69 08/24/16 20:07 15.0 08/24/16 20:00 Non Rebreather Intake and Output 08/24/16 08/24/16 08/25/16 15:00 23:00 07:00 Intake Total 1260 ml 300 ml Output Total 3000 ml Balance -1740 ml 300 ml Exam Free Text/Dictation GENERAL: Alert and awakes when you call her name PULMONARY: Bilateral coarse BS CARDIOVASCULAR: S1, S2 present. ABDOMEN: Soft, nontender, nondistended. Bowel sounds positive. Truncal obesity. EXTREMITIES: LEFT UPPER EXTREMITY: Palpable brachial pulse. Motor, sensory intact. Capillary refill 2 to 3 seconds. Surgical scar well healed. Fistula with bruit and thrill present. ecchymosis at the elbow Results Result Diagram: 08/24/16 0845 08/24/16 0700 ELIZA LI MD Aug 25, 2016 07:20
[2016-08-25] MEDS: Insulin NOVOLOG SS MILD Algorithm (SS with meals and bedtime) SC SCH (07:25)
[2016-08-25] MEDS: CALCIUM ACETATE 667 MG CAP PO SCH ×3 (07:55→17:55)
[2016-08-25] MEDS: NYSTATIN 30 GM POWDER BTL TOP SCH ×2 (08:47→21:16)
[2016-08-25] MEDS: SALMETEROL/FLUTICASONE 250/50 INHA INH SCH ×2 (08:48→21:00)
[2016-08-25] MEDS: TIOTROPIUM 18 MCG CAPSULE INHA DEV INH SCH (08:48)
[2016-08-25] MEDS: DIGOXIN 500 MCG INJ IV SCH (08:49)
[2016-08-25] MEDS: APIXABAN 5 MG TABLET PO SCH ×2 (08:49→20:36)
[2016-08-25] MEDS: CLOTRIMAZOLE 10 MG TROCHE MT SCH ×5 (08:49→20:36)
[2016-08-25] MEDS: LINAGLIPTIN 5 MG TABLET PO SCH (08:50)
[2016-08-25] MEDS: NYSTATIN SUSP 5 ML CUP PO SCH ×4 (08:50→20:38)
[2016-08-25] MEDS: METOPROLOL 25 MG TAB PO SCH ×2 (08:50→20:37)
[2016-08-25] MEDS: PAROXETINE 10 MG TAB PO SCH (08:50)
[2016-08-25] MEDS: CALCITRIOL 0.25 MCG CAP PO SCH (08:50)
[2016-08-25] MEDS: CALCIUM/VITAMIN D (500/200) TAB PO SCH ×2 (08:50→20:38)
--- NOTE | 2016-08-25 12:28 | CONS ---
Date/Time of Note Date/Time of Note DATE: 08/25/16 TIME: 12:26 Assessment/Plan Assessment/Plan Additional Assessment/Plan Assessment recommendations; 1. Patient admitted with acute renal failure now requiring hemodialysis. 2. Respiratory failure, requiring continuous BiPAP at 100% FiO2. 3. Pulmonary edema and recurrent right pleural effusion, status post thoracentesis 2. 4. Anemia. 5. Diabetes. 6. Hypertension. Continue current supportive care. Patient prognosis is poor. Consultation Date/Type/Reason Admit Date/Time Jul 31, 2016 at 19:59 Initial Consult Date 08/06/16 Type of Consultation: Pulmonary Referring Provider: LALA ORO 24 HR Interval Summary Free Text/Dictation Patient condition is tenuous at best. Patient requiring continuous BiPAP. Rapid response was called in a few minutes earlier the patient came off BiPAP accidentally however after resumption of BiPAP the patient mental status improved as well as improvement in O2 saturation. General exam; elderly lady, on BiPAP. Appears anxious. Exam/Review of Systems Vital Signs Vitals Vital Signs Date Time Temp Pulse Resp B/P Pulse Ox O2 Delivery O2 Flow Rate FiO2 08/25/16 12:03 102 08/25/16 11:18 98 90 08/25/16 11:06 98.0 19 143/53 08/24/16 20:07 15.0 08/24/16 20:00 Non Rebreather Intake and Output 08/24/16 08/24/16 08/25/16 15:00 23:00 07:00 Intake Total 1260 ml 300 ml Output Total 3000 ml Balance -1740 ml 300 ml Exam HEENT exam is; supple neck, JVD difficult to see because of short neck. Edentulous. Chest exam; diminished breath sounds throughout. S1-S2 audible, no murmurs. Abdomen examination; soft, nontender. No organomegaly. Extremity exam; 2+ edema. Patient with extensive ecchymosis involving all 4 extremities more pronounced in the left upper extremity. CORRECTIONS LIEUTENANT examination; patient is awake and alert and follows simple commands. Results Result Diagram: 08/24/16 0845 08/24/16 0700 Results 24 hrs Laboratory Tests Test 08/24/16 17:45 08/24/16 21:11 08/24/16 22:28 08/25/16 08:41 Bedside Glucose 135 126 144 Blood Gas Specimen Source Blood arterial Arterial Blood Date Drawn 08/24/2016 9:20:19 PM Arterial Blood pH (Temp corrected) 7.468 H Arterial Blood pCO2 (Temp correct) 37.8 Arterial Blood pO2 (Temp corrected) 37.8 *L Arterial Blood HCO3 26.8 H Arterial Blood Base Excess 3.0 Arterial Blood Oxygen Saturation 78.5 L Chris Test ACCEPTAB Arterial Blood Gas Puncture Site Right Radial Arterial Blood Carboxyhemoglobin 0.1 Arterial Blood Methemoglobin 0.4 Blood Gas A-a O2 Differential 637.4 H Oxyhemoglobin Percent 78.1 L Total Hemoglobin 10.7 L Blood Gas Temperature 37.0 Blood Gas Respiration Rate 14.0 Blood Gas Actual Respiration Rate 30 Blood Gas Modality MASK - BIPAP FiO2 100.0 Blood Gas Pressure Support 9 Blood Gas IPAP/EPAP Ratio 15/6 Blood Gas Critical Value Read Back Aman CH RN Blood Gas Notified Whom UP Blood Gas Notified Time 08/24/2016 9:32:11 PM Medications Medications Current Medications Atorvastatin Calcium (Lipitor) 40 mg HS PO Last administered on 08/20/16 20:47 ; Admin Dose 40 MG; Start 08/01/16 at 21:00 Calcitriol (Rocaltrol) 0.25 mcg DAILY PO Last administered on 08/20/16 08:40; Admin Dose 0.25 MCG; Start 08/01/16 at 09:00 Calcium/Vitamin D (Oyster Shell/ Vit-D (500/200)) 1 tab BID PO Last administered on 08/20/16 20:47; Admin Dose 1 TAB; Start 08/01/16 at 09:00 Hydralazine HCl (Apresoline) 50 mg Q8 PO Last administered on 08/20/16 06:01; Admin Dose 50 MG; Start 08/01/16 at 06:00 Paroxetine HCl (Paxil) 10 mg DAILY PO Last administered on 08/20/16 08:42; Admin Dose 10 MG; Start 08/01/16 at 09:00 Acetaminophen (Tylenol Tab) 650 mg Q4H PRN PO PAIN AND OR ELEVATED TEMP Last administered on 08/19/16 08:55; Admin Dose 650 MG; Start 08/01/16 at 00:30 Hydralazine HCl (Apresoline) 20 mg Q6H PRN IV ELEVATED BLOOD PRESSURE Last administered on 08/09/16 03:50; Admin Dose 20 MG; Start 08/01/16 at 00:30 Guaifenesin/ Dextromethorphan (Robitussin Dm Liquid Cup) 10 ml Q4H PRN PO COUGH Last administered on 08/20/16 21:07; Admin Dose 10 ML; Start 08/01/16 at 00:30 Epoetin Braden (Epogen (Esrd)) 6,000 units MoWeFr@17 SC Last administered on 08/23 21:20; Admin Dose 6,000 UNITS; Start 08/02/16 at 17:00 Linagliptin (Tradjenta) 5 mg DAILY PO Last administered on 08/20/16 08:42; Admin Dose 5 MG; Start 08/04/16 at 20:00 Salmeterol Xinafoate/ Fluticasone (Advair 250/50 Diskus) 1 inh BID INH Last administered on 08/23/16 21:20; Admin Dose 1 INH; Start 08/08/16 at 11:00 Montelukast Sodium (Singulair) 10 mg HS PO Last administered on 08/20/16 20:47 ; Admin Dose 10 MG; Start 08/08/16 at 21:00 Tiotropium [place] (Spiriva) 1 inh DAILY INH Last administered on 08/22/16 09: 00; Admin Dose 1 INH; Start 08/08/16 at 11:00 Miscellaneous Information 1 ea NOTE XX ; Start 08/13/16 at 17:30 Glucose (Glutose) 15 gm Q15M PRN PO DECREASED GLUCOSE; Start 08/13/16 at 17:30 Glucose (Glutose) 22.5 gm Q15M PRN PO DECREASED GLUCOSE; Start 08/13/16 at 17:30 Dextrose (D50w Syringe) 25 ml Q15M PRN IV DECREASED GLUCOSE; Start 08/13/16 at 17:30 Dextrose (D50w Syringe) 50 ml Q15M PRN IV DECREASED GLUCOSE; Start 08/13/16 at 17:30 Glucagon (Glucagen) 1 mg Q15M PRN IM DECREASED GLUCOSE; Start 08/13/16 at 17:30 Glucose (Glutose) 15 gm Q15M PRN BUCCAL DECREASED GLUCOSE; Start 08/13/16 at 17: 30 Apixaban (Eliquis) 5 mg BID PO Last administered on 08/20/16 20:47; Admin Dose 5 MG; Start 08/17/16 at 21:00 Metoprolol Tartrate (Lopressor) 50 mg BID PO Last administered on 08/20/16 20: 49; Admin Dose 50 MG; Start 08/19/16 at 09:00 Phenol (Cepastat Lozenge) 1 lozenge Q1H PRN MT SORE THROAT Last administered on 08/19/16 18:56; Admin Dose 1 LOZENGE; Start 08/19/16 at 16:30 Diagnostic Test (Pha) (Accu-Chek) 1 ea 02 XX Last administered on 08/22/16 02: 00; Admin Dose 1 EA; Start 08/20/16 at 02:00 Nystatin 1 applic 1 applic BID TOP Last administered on 08/25/16 08:47; Admin Dose 1 APPLIC; Start 08/19/16 at 21:00 Dextrose/Sodium Chloride (D5-1/2ns) 1,000 ml @ 40 mls/hr Q24H IV Last administered on 08/24/16 22:04; Admin Dose 40 MLS/HR; Start 08/20/16 at 13:00 Diltiazem HCl 10 mg 10 mg Q4 PRN IV HR>120 Last administered on 08/24/16 20:59 ; Admin Dose 10 MG; Start 08/20/16 at 18:30 Fluconazole/ Sodium Chloride (Diflucan 100 Mg/ NS (Pmx)) 50 ml @ 50 mls/hr Q24H IVPB Last administered on 08/24/16 22:04; Admin Dose 50 MLS/HR; Start at 21:00 Nystatin (Nystatin Susp) 5 ml QID PO Last administered on 08/22/16 23:02; Admin Dose 5 ML; Start 08/21/16 at 21:00 Lorazepam (Ativan) 1 mg Q2 PRN IV ANXIETY Last administered on 08/22/16 03:03 ; Admin Dose 1 MG; Start 08/21/16 at 21:00 Digoxin (Digoxin) 125 mcg AM IV Last administered on 08/24/16 10:10; Admin Dose 125 MCG; Start 08/23/16 at 14:30 Insulin Aspart (Novolog Insulin Pen) NOVOLOG *MILD* ALGORI... Q4 SC ; Start at 13:00 KOFI HUERTA Aug 25, 2016 12:28
[2016-08-25] MEDS: INSULIN ASPART [NOVOLOG] 3 ML PEN SC SCH ×3 (12:32→21:00)
--- NOTE | 2016-08-25 12:58 | PN ---
Date/Time of Note Date/Time of Note DATE: 08/25/16 TIME: 12:56 Assessment/Plan VTE Prophylaxis VTE Prophylaxis Intervention: other Lines/Catheters IV Catheter Type (from Nrs): Permacath` Urinary Cath still in place: No Assessment/Plan Chief Complaint/Hosp Course IMPRESSION: 1. End-stage renal disease stage V. 2. Fluid overload.better 3. Pulmonary edema./pleural effusion/lung infilterate s/p thoracenresis 4. Anemia of chronic kidney disease. 5. History of diabetes mellitus. 6. 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 7. AV fistula on the left upper extremity. 8 pneumonia/bronchites 9 thoracentesis s/p 10 s/p arrthymia 11 vdrf plan continue hd fluis res antibiotic per pulmonary dnr and dni per rn Problems: Subjective 24 Hr Interval Summary Subjective hx not possible: other (sob was off bipap dr antonio aware) Exam/Review of Systems Vital Signs Vitals Vital Signs Date Time Temp Pulse Resp B/P Pulse Ox O2 Delivery O2 Flow Rate FiO2 08/25/16 12:20 100 08/25/16 12:03 102 08/25/16 11:18 98 08/25/16 11:06 98.0 19 143/53 08/24/16 20:07 15.0 08/24/16 20:00 Non Rebreather Intake and Output 08/24/16 08/24/16 08/25/16 15:00 23:00 07:00 Intake Total 1260 ml 300 ml Output Total 3000 ml Balance -1740 ml 300 ml Exam Respiratory: diminished breath sounds Cardiovascular: regular rate and rhythm Gastrointestinal: soft Extremities: edema (+) Results Result Diagram: 08/24/16 0845 08/24/16 0700 Results 24 hrs Laboratory Tests Test 08/24/16 17:45 08/24/16 21:11 08/24/16 22:28 08/25/16 08:41 Bedside Glucose 135 126 144 Blood Gas Specimen Source Blood arterial Arterial Blood Date Drawn 08/24/2016 9:20:19 PM Arterial Blood pH (Temp corrected) 7.468 H Arterial Blood pCO2 (Temp correct) 37.8 Arterial Blood pO2 (Temp corrected) 37.8 *L Arterial Blood HCO3 26.8 H Arterial Blood Base Excess 3.0 Arterial Blood Oxygen Saturation 78.5 L Chris Test ACCEPTAB Arterial Blood Gas Puncture Site Right Radial Arterial Blood Carboxyhemoglobin 0.1 Arterial Blood Methemoglobin 0.4 Blood Gas A-a O2 Differential 637.4 H Oxyhemoglobin Percent 78.1 L Total Hemoglobin 10.7 L Blood Gas Temperature 37.0 Blood Gas Respiration Rate 14.0 Blood Gas Actual Respiration Rate 30 Blood Gas Modality MASK - BIPAP FiO2 100.0 Blood Gas Pressure Support 9 Blood Gas IPAP/EPAP Ratio 15/6 Blood Gas Critical Value Read Back Aman CH RN Blood Gas Notified Whom UP Blood Gas Notified Time 08/24/2016 9:32:11 PM Test 08/25/16 12:29 Bedside Glucose 206 Medications Medications Current Medications Atorvastatin Calcium (Lipitor) 40 mg HS PO Last administered on 08/20/16 20:47 ; Admin Dose 40 MG; Start 08/01/16 at 21:00 Calcitriol (Rocaltrol) 0.25 mcg DAILY PO Last administered on 08/20/16 08:40; Admin Dose 0.25 MCG; Start 08/01/16 at 09:00 Calcium/Vitamin D (Oyster Shell/ Vit-D (500/200)) 1 tab BID PO Last administered on 08/20/16 20:47; Admin Dose 1 TAB; Start 08/01/16 at 09:00 Hydralazine HCl (Apresoline) 50 mg Q8 PO Last administered on 08/20/16 06:01; Admin Dose 50 MG; Start 08/01/16 at 06:00 Paroxetine HCl (Paxil) 10 mg DAILY PO Last administered on 08/20/16 08:42; Admin Dose 10 MG; Start 08/01/16 at 09:00 Acetaminophen (Tylenol Tab) 650 mg Q4H PRN PO PAIN AND OR ELEVATED TEMP Last administered on 08/19/16 08:55; Admin Dose 650 MG; Start 08/01/16 at 00:30 Hydralazine HCl (Apresoline) 20 mg Q6H PRN IV ELEVATED BLOOD PRESSURE Last administered on 08/09/16 03:50; Admin Dose 20 MG; Start 08/01/16 at 00:30 Guaifenesin/ Dextromethorphan (Robitussin Dm Liquid Cup) 10 ml Q4H PRN PO COUGH Last administered on 08/20/16 21:07; Admin Dose 10 ML; Start 08/01/16 at 00:30 Epoetin Braden (Epogen (Esrd)) 6,000 units MoWeFr@17 SC Last administered on 08/23 21:20; Admin Dose 6,000 UNITS; Start 08/02/16 at 17:00 Linagliptin (Tradjenta) 5 mg DAILY PO Last administered on 08/20/16 08:42; Admin Dose 5 MG; Start 08/04/16 at 20:00 Salmeterol Xinafoate/ Fluticasone (Advair 250/50 Diskus) 1 inh BID INH Last administered on 08/23/16 21:20; Admin Dose 1 INH; Start 08/08/16 at 11:00 Montelukast Sodium (Singulair) 10 mg HS PO Last administered on 08/20/16 20:47 ; Admin Dose 10 MG; Start 08/08/16 at 21:00 Tiotropium [place] (Spiriva) 1 inh DAILY INH Last administered on 08/22/16 09: 00; Admin Dose 1 INH; Start 08/08/16 at 11:00 Miscellaneous Information 1 ea NOTE XX ; Start 08/13/16 at 17:30 Glucose (Glutose) 15 gm Q15M PRN PO DECREASED GLUCOSE; Start 08/13/16 at 17:30 Glucose (Glutose) 22.5 gm Q15M PRN PO DECREASED GLUCOSE; Start 08/13/16 at 17:30 Dextrose (D50w Syringe) 25 ml Q15M PRN IV DECREASED GLUCOSE; Start 08/13/16 at 17:30 Dextrose (D50w Syringe) 50 ml Q15M PRN IV DECREASED GLUCOSE; Start 08/13/16 at 17:30 Glucagon (Glucagen) 1 mg Q15M PRN IM DECREASED GLUCOSE; Start 08/13/16 at 17:30 Glucose (Glutose) 15 gm Q15M PRN BUCCAL DECREASED GLUCOSE; Start 08/13/16 at 17: 30 Apixaban (Eliquis) 5 mg BID PO Last administered on 08/20/16 20:47; Admin Dose 5 MG; Start 08/17/16 at 21:00 Metoprolol Tartrate (Lopressor) 50 mg BID PO Last administered on 08/20/16 20: 49; Admin Dose 50 MG; Start 08/19/16 at 09:00 Phenol (Cepastat Lozenge) 1 lozenge Q1H PRN MT SORE THROAT Last administered on 08/19/16 18:56; Admin Dose 1 LOZENGE; Start 08/19/16 at 16:30 Diagnostic Test (Pha) (Accu-Chek) 1 ea 02 XX Last administered on 08/22/16 02: 00; Admin Dose 1 EA; Start 08/20/16 at 02:00 Nystatin 1 applic 1 applic BID TOP Last administered on 08/25/16 08:47; Admin Dose 1 APPLIC; Start 08/19/16 at 21:00 Dextrose/Sodium Chloride (D5-1/2ns) 1,000 ml @ 40 mls/hr Q24H IV Last administered on 08/24/16 22:04; Admin Dose 40 MLS/HR; Start 08/20/16 at 13:00 Diltiazem HCl 10 mg 10 mg Q4 PRN IV HR>120 Last administered on 08/24/16 20:59 ; Admin Dose 10 MG; Start 08/20/16 at 18:30 Fluconazole/ Sodium Chloride (Diflucan 100 Mg/ NS (Pmx)) 50 ml @ 50 mls/hr Q24H IVPB Last administered on 08/24/16 22:04; Admin Dose 50 MLS/HR; Start at 21:00 Nystatin (Nystatin Susp) 5 ml QID PO Last administered on 08/22/16 23:02; Admin Dose 5 ML; Start 08/21/16 at 21:00 Lorazepam (Ativan) 1 mg Q2 PRN IV ANXIETY Last administered on 08/22/16 03:03 ; Admin Dose 1 MG; Start 08/21/16 at 21:00 Digoxin (Digoxin) 125 mcg AM IV Last administered on 08/24/16 10:10; Admin Dose 125 MCG; Start 08/23/16 at 14:30 Insulin Aspart (Novolog Insulin Pen) NOVOLOG *MILD* ALGORI... Q4 SC Last administered on 08/25/16 12:32; Admin Dose 2 UNIT; Start 08/25/16 at 13:00 DAT OLSON MD Aug 25, 2016 12:58
[2016-08-25] MEDS: DEXTROSE 5%-0.45% NACL 1,000 ML IV SCH (13:00)
[2016-08-25] MEDS: hydrALAzine 20 MG INJ IV PRN (15:20)
--- NOTE | 2016-08-25 17:02 | PN ---
Date/Time of Note Date/Time of Note DATE: 08/25/16 TIME: 16:59 Assessment/Plan VTE Prophylaxis VTE Prophylaxis Intervention: SCD's Lines/Catheters IV Catheter Type (from [facility]): permacath Urinary Cath still in place: No Assessment/Plan Chief Complaint/Hosp Course Assessment and plan: - Acute respiratory insufficiency secondary to pneumonia and pulmonary edema. - Sepsis with bacteremia, status post treatment. Dr. Eric is following in infection disease consultation. - Right-sided pneumonia, status post treatment. - A-fib with RVR, continue Cardizem and Eliquiz, patient is followed by Dr. Stuart in cardiology. - COPD exacerbation, continue breathing treatment. Dr. Natarajan is following in pulmonology consultation - End-stage renal disease stage V. Dr. Leon is following in nephrology consultation. Continue to hemodialysis via right femoral hemodialysis catheter. - Pulmonary edema. Continue to remove fluids with hemodialysis. - Pleural effusions, status post thoracentesis 2. - Anemia of chronic kidney disease. - Diabetes mellitus type [address] Garcia is following an endocrinology consultation. - Hypertension, continue Norvasc. -Left upper extremity AV fistula, non-matured -Status post right hemodialysis non-tunneled catheter placement by Dr. Manning on 08/03. S/p R IJ tunneled hemodialysis catheter placement. -DNI status Further recommendations based on clinical course. Plan of care discussed with Dr. Flores Problems: Subjective 24 Hr Interval Summary Free Text/Dictation Patient's became short of breath on nonrebreather mask today in the morning, was placed on BiPAP, currently saturating 90% on BiPAP, feels better, status post hemodialysis yesterday. Exam/Review of Systems Vital Signs Vitals Vital Signs Date Time Temp Pulse Resp B/P Pulse Ox O2 Delivery O2 Flow Rate FiO2 08/25/16 16:07 101 08/25/16 15:47 98.2 19 114/46 92 08/25/16 15:15 100 08/24/16 20:07 15.0 08/24/16 20:00 Non Rebreather Intake and Output 08/24/16 08/24/16 08/25/16 15:00 23:00 07:00 Intake Total 1260 ml 300 ml Output Total 3000 ml Balance -1740 ml 300 ml Exam Constitutional: alert, oriented Psych: no complaints Head: atraumatic, normocephalic Eyes: nl conjunctiva ENMT: nl external ears & nose, nl lips & teeth Neck: non-tender, supple Respiratory: Rhonchi bilaterally, diminished air entry bilaterally. Cardiovascular: nl pulses, regular rate and rhythm Gastrointestinal: non-tender, soft Musculoskeletal: nl extremities to inspection Extremities: normal pulses 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: TOBACCO FLAVORER II-XII intact Additional Comments Left upper extremities with AV fistula with palpable thrill and audible bruit Right IJ permacath Results Result Diagram: 08/24/16 0845 08/24/16 0700 Results 24 hrs Laboratory Tests Test 08/24/16 17:45 08/24/16 21:11 08/24/16 22:28 08/25/16 08:41 Bedside Glucose 135 126 144 Blood Gas Specimen Source Blood arterial Arterial Blood Date Drawn 08/24/2016 9:20:19 PM Arterial Blood pH (Temp corrected) 7.468 H Arterial Blood pCO2 (Temp correct) 37.8 Arterial Blood pO2 (Temp corrected) 37.8 *L Arterial Blood HCO3 26.8 H Arterial Blood Base Excess 3.0 Arterial Blood Oxygen Saturation 78.5 L Chris Test ACCEPTAB Arterial Blood Gas Puncture Site Right Radial Arterial Blood Carboxyhemoglobin 0.1 Arterial Blood Methemoglobin 0.4 Blood Gas A-a O2 Differential 637.4 H Oxyhemoglobin Percent 78.1 L Total Hemoglobin 10.7 L Blood Gas Temperature 37.0 Blood Gas Respiration Rate 14.0 Blood Gas Actual Respiration Rate 30 Blood Gas Modality MASK - BIPAP FiO2 100.0 Blood Gas Pressure Support 9 Blood Gas IPAP/EPAP Ratio 15/6 Blood Gas Critical Value Read Back Aman CH RN Blood Gas Notified Whom UP Blood Gas Notified Time 08/24/2016 9:32:11 PM Test 08/25/16 12:29 Bedside Glucose 206 Medications Medications Current Medications Atorvastatin Calcium (Lipitor) 40 mg HS PO Last administered on 08/20/16 20:47 ; Admin Dose 40 MG; Start 08/01/16 at 21:00 Calcitriol (Rocaltrol) 0.25 mcg DAILY PO Last administered on 08/20/16 08:40; Admin Dose 0.25 MCG; Start 08/01/16 at 09:00 Calcium/Vitamin D (Oyster Shell/ Vit-D (500/200)) 1 tab BID PO Last administered on 08/20/16 20:47; Admin Dose 1 TAB; Start 08/01/16 at 09:00 Hydralazine HCl (Apresoline) 50 mg Q8 PO Last administered on 08/20/16 06:01; Admin Dose 50 MG; Start 08/01/16 at 06:00 Paroxetine HCl (Paxil) 10 mg DAILY PO Last administered on 08/20/16 08:42; Admin Dose 10 MG; Start 08/01/16 at 09:00 Acetaminophen (Tylenol Tab) 650 mg Q4H PRN PO PAIN AND OR ELEVATED TEMP Last administered on 08/19/16 08:55; Admin Dose 650 MG; Start 08/01/16 at 00:30 Hydralazine HCl (Apresoline) 20 mg Q6H PRN IV ELEVATED BLOOD PRESSURE Last administered on 08/25/16 15:20; Admin Dose 20 MG; Start 08/01/16 at 00:30 Guaifenesin/ Dextromethorphan (Robitussin Dm Liquid Cup) 10 ml Q4H PRN PO COUGH Last administered on 08/20/16 21:07; Admin Dose 10 ML; Start 08/01/16 at 00:30 Epoetin Braden (Epogen (Esrd)) 6,000 units MoWeFr@17 SC Last administered on 08/23 21:20; Admin Dose 6,000 UNITS; Start 08/02/16 at 17:00 Linagliptin (Tradjenta) 5 mg DAILY PO Last administered on 08/20/16 08:42; Admin Dose 5 MG; Start 08/04/16 at 20:00 Salmeterol Xinafoate/ Fluticasone (Advair 250/50 Diskus) 1 inh BID INH Last administered on 08/23/16 21:20; Admin Dose 1 INH; Start 08/08/16 at 11:00 Montelukast Sodium (Singulair) 10 mg HS PO Last administered on 08/20/16 20:47 ; Admin Dose 10 MG; Start 08/08/16 at 21:00 Tiotropium [place] (Spiriva) 1 inh DAILY INH Last administered on 08/22/16 09: 00; Admin Dose 1 INH; Start 08/08/16 at 11:00 Miscellaneous Information 1 ea NOTE XX ; Start 08/13/16 at 17:30 Glucose (Glutose) 15 gm Q15M PRN PO DECREASED GLUCOSE; Start 08/13/16 at 17:30 Glucose (Glutose) 22.5 gm Q15M PRN PO DECREASED GLUCOSE; Start 08/13/16 at 17:30 Dextrose (D50w Syringe) 25 ml Q15M PRN IV DECREASED GLUCOSE; Start 08/13/16 at 17:30 Dextrose (D50w Syringe) 50 ml Q15M PRN IV DECREASED GLUCOSE; Start 08/13/16 at 17:30 Glucagon (Glucagen) 1 mg Q15M PRN IM DECREASED GLUCOSE; Start 08/13/16 at 17:30 Glucose (Glutose) 15 gm Q15M PRN BUCCAL DECREASED GLUCOSE; Start 08/13/16 at 17: 30 Apixaban (Eliquis) 5 mg BID PO Last administered on 08/20/16 20:47; Admin Dose 5 MG; Start 08/17/16 at 21:00 Metoprolol Tartrate (Lopressor) 50 mg BID PO Last administered on 08/20/16 20: 49; Admin Dose 50 MG; Start 08/19/16 at 09:00 Phenol (Cepastat Lozenge) 1 lozenge Q1H PRN MT SORE THROAT Last administered on 08/19/16 18:56; Admin Dose 1 LOZENGE; Start 08/19/16 at 16:30 Diagnostic Test (Pha) (Accu-Chek) 1 ea 02 XX Last administered on 08/22/16 02: 00; Admin Dose 1 EA; Start 08/20/16 at 02:00 Nystatin 1 applic 1 applic BID TOP Last administered on 08/25/16 08:47; Admin Dose 1 APPLIC; Start 08/19/16 at 21:00 Dextrose/Sodium Chloride (D5-1/2ns) 1,000 ml @ 40 mls/hr Q24H IV Last administered on 08/24/16 22:04; Admin Dose 40 MLS/HR; Start 08/20/16 at 13:00 Diltiazem HCl 10 mg 10 mg Q4 PRN IV HR>120 Last administered on 08/24/16 20:59 ; Admin Dose 10 MG; Start 08/20/16 at 18:30 Fluconazole/ Sodium Chloride (Diflucan 100 Mg/ NS (Pmx)) 50 ml @ 50 mls/hr Q24H IVPB Last administered on 08/24/16 22:04; Admin Dose 50 MLS/HR; Start at 21:00 Nystatin (Nystatin Susp) 5 ml QID PO Last administered on 08/22/16 23:02; Admin Dose 5 ML; Start 08/21/16 at 21:00 Lorazepam (Ativan) 1 mg Q2 PRN IV ANXIETY Last administered on 08/22/16 03:03 ; Admin Dose 1 MG; Start 08/21/16 at 21:00 Digoxin (Digoxin) 125 mcg AM IV Last administered on 08/24/16 10:10; Admin Dose 125 MCG; Start 08/23/16 at 14:30 Insulin Aspart (Novolog Insulin Pen) NOVOLOG *MILD* ALGORI... Q4 SC Last administered on 08/25/16 12:32; Admin Dose 2 UNIT; Start 08/25/16 at 13:00 BRYANT PERALTA Aug 25, 2016 17:02
--- NOTE | 2016-08-25 17:05 | CONS ---
Date/Time of Note Date/Time of Note DATE: 08/25/16 TIME: 17:04 Assessment/Plan Assessment/Plan Chief Complaint/Hosp Course SUBJECTIVE: No events. The patient is on BiPAP. No fevers. DIAGNOSTICS: Chest x-ray this morning revealed stable patchy infiltrates. ANTIMICROBIALS: Fluconazole. INDWELLINGS: Right IJ PermCath. PHYSICAL EXAMINATION: GENERAL: Chronically ill-appearing, elderly woman who is awake, in no distress. HEENT: Head atraumatic, normocephalic. Sclerae anicteric. Buccal mucosa dry. NECK: Supple, trachea midline. CHEST: Rise symmetrical. Breath sounds with bilateral crackles. HEART: S1, S2. ABDOMEN: Soft, bowel sounds present. EXTREMITIES: With trace edema. ASSESSMENT: 1. Acute respiratory failure secondary to fluid overload. 2. Status post pneumonia, sepsis and bacteremia. 3. Ongoing pulmonary edema. 4. Oropharyngeal candidiasis, on Diflucan. 5. End-stage renal disease, hemodialysis dependent. PLAN: The patient remains unchanged. She is DNI status. She completed treatment for pneumonia . We will keep her on Diflucan for candidiasis. We will continue nystatin orally. DW staff Problems: Consultation Date/Type/Reason Admit Date/Time Jul 31, 2016 at 19:59 Initial Consult Date 08/06/16 Type of Consultation: ID Referring Provider: LALA ORO Exam/Review of Systems Vital Signs Vitals Vital Signs Date Time Temp Pulse Resp B/P Pulse Ox O2 Delivery O2 Flow Rate FiO2 08/25/16 16:07 101 08/25/16 15:47 98.2 19 114/46 92 08/25/16 15:15 100 08/24/16 20:07 15.0 08/24/16 20:00 Non Rebreather Intake and Output 08/24/16 08/24/16 08/25/16 15:00 23:00 07:00 Intake Total 1260 ml 300 ml Output Total 3000 ml Balance -1740 ml 300 ml Results Result Diagram: 08/24/16 0845 08/24/16 0700 Results 24 hrs Laboratory Tests Test 08/24/16 17:45 08/24/16 21:11 08/24/16 22:28 08/25/16 08:41 Bedside Glucose 135 126 144 Blood Gas Specimen Source Blood arterial Arterial Blood Date Drawn 08/24/2016 9:20:19 PM Arterial Blood pH (Temp corrected) 7.468 H Arterial Blood pCO2 (Temp correct) 37.8 Arterial Blood pO2 (Temp corrected) 37.8 *L Arterial Blood HCO3 26.8 H Arterial Blood Base Excess 3.0 Arterial Blood Oxygen Saturation 78.5 L Chris Test ACCEPTAB Arterial Blood Gas Puncture Site Right Radial Arterial Blood Carboxyhemoglobin 0.1 Arterial Blood Methemoglobin 0.4 Blood Gas A-a O2 Differential 637.4 H Oxyhemoglobin Percent 78.1 L Total Hemoglobin 10.7 L Blood Gas Temperature 37.0 Blood Gas Respiration Rate 14.0 Blood Gas Actual Respiration Rate 30 Blood Gas Modality MASK - BIPAP FiO2 100.0 Blood Gas Pressure Support 9 Blood Gas IPAP/EPAP Ratio 21/10 Blood Gas Critical Value Read Back Aman CH RN Blood Gas Notified Whom UP Blood Gas Notified Time 08/24/2016 9:32:11 PM Test 08/25/16 12:29 Bedside Glucose 206 Medications Medications Current Medications Atorvastatin Calcium (Lipitor) 40 mg HS PO Last administered on 08/20/16 20:47 ; Admin Dose 40 MG; Start 08/01/16 at 21:00 Calcitriol (Rocaltrol) 0.25 mcg DAILY PO Last administered on 08/20/16 08:40; Admin Dose 0.25 MCG; Start 08/01/16 at 09:00 Calcium/Vitamin D (Oyster Shell/ Vit-D (500/200)) 1 tab BID PO Last administered on 08/20/16 20:47; Admin Dose 1 TAB; Start 08/01/16 at 09:00 Hydralazine HCl (Apresoline) 50 mg Q8 PO Last administered on 08/20/16 06:01; Admin Dose 50 MG; Start 08/01/16 at 06:00 Paroxetine HCl (Paxil) 10 mg DAILY PO Last administered on 08/20/16 08:42; Admin Dose 10 MG; Start 08/01/16 at 09:00 Acetaminophen (Tylenol Tab) 650 mg Q4H PRN PO PAIN AND OR ELEVATED TEMP Last administered on 08/19/16 08:55; Admin Dose 650 MG; Start 08/01/16 at 00:30 Hydralazine HCl (Apresoline) 20 mg Q6H PRN IV ELEVATED BLOOD PRESSURE Last administered on 08/25/16 15:20; Admin Dose 20 MG; Start 08/01/16 at 00:30 Guaifenesin/ Dextromethorphan (Robitussin Dm Liquid Cup) 10 ml Q4H PRN PO COUGH Last administered on 08/20/16 21:07; Admin Dose 10 ML; Start 08/01/16 at 00:30 Epoetin Braden (Epogen (Esrd)) 6,000 units MoWeFr@17 SC Last administered on 08/23 21:20; Admin Dose 6,000 UNITS; Start 08/02/16 at 17:00 Linagliptin (Tradjenta) 5 mg DAILY PO Last administered on 08/20/16 08:42; Admin Dose 5 MG; Start 08/04/16 at 20:00 Salmeterol Xinafoate/ Fluticasone (Advair 250/50 Diskus) 1 inh BID INH Last administered on 08/23/16 21:20; Admin Dose 1 INH; Start 08/08/16 at 11:00 Montelukast Sodium (Singulair) 10 mg HS PO Last administered on 08/20/16 20:47 ; Admin Dose 10 MG; Start 08/08/16 at 21:00 Tiotropium [place] (Spiriva) 1 inh DAILY INH Last administered on 08/22/16 09: 00; Admin Dose 1 INH; Start 08/08/16 at 11:00 Miscellaneous Information 1 ea NOTE XX ; Start 08/13/16 at 17:30 Glucose (Glutose) 15 gm Q15M PRN PO DECREASED GLUCOSE; Start 08/13/16 at 17:30 Glucose (Glutose) 22.5 gm Q15M PRN PO DECREASED GLUCOSE; Start 08/13/16 at 17:30 Dextrose (D50w Syringe) 25 ml Q15M PRN IV DECREASED GLUCOSE; Start 08/13/16 at 17:30 Dextrose (D50w Syringe) 50 ml Q15M PRN IV DECREASED GLUCOSE; Start 08/13/16 at 17:30 Glucagon (Glucagen) 1 mg Q15M PRN IM DECREASED GLUCOSE; Start 08/13/16 at 17:30 Glucose (Glutose) 15 gm Q15M PRN BUCCAL DECREASED GLUCOSE; Start 08/13/16 at 17: 30 Apixaban (Eliquis) 5 mg BID PO Last administered on 08/20/16 20:47; Admin Dose 5 MG; Start 08/17/16 at 21:00 Metoprolol Tartrate (Lopressor) 50 mg BID PO Last administered on 08/20/16 20: 49; Admin Dose 50 MG; Start 08/19/16 at 09:00 Phenol (Cepastat Lozenge) 1 lozenge Q1H PRN MT SORE THROAT Last administered on 08/19/16 18:56; Admin Dose 1 LOZENGE; Start 08/19/16 at 16:30 Diagnostic Test (Pha) (Accu-Chek) 1 ea 02 XX Last administered on 08/22/16 02: 00; Admin Dose 1 EA; Start 08/20/16 at 02:00 Nystatin 1 applic 1 applic BID TOP Last administered on 08/25/16 08:47; Admin Dose 1 APPLIC; Start 08/19/16 at 21:00 Dextrose/Sodium Chloride (D5-1/2ns) 1,000 ml @ 40 mls/hr Q24H IV Last administered on 08/24/16 22:04; Admin Dose 40 MLS/HR; Start 08/20/16 at 13:00 Diltiazem HCl 10 mg 10 mg Q4 PRN IV HR>120 Last administered on 08/24/16 20:59 ; Admin Dose 10 MG; Start 08/20/16 at 18:30 Fluconazole/ Sodium Chloride (Diflucan 100 Mg/ NS (Pmx)) 50 ml @ 50 mls/hr Q24H IVPB Last administered on 08/24/16 22:04; Admin Dose 50 MLS/HR; Start at 21:00 Nystatin (Nystatin Susp) 5 ml QID PO Last administered on 08/22/16 23:02; Admin Dose 5 ML; Start 08/21/16 at 21:00 Lorazepam (Ativan) 1 mg Q2 PRN IV ANXIETY Last administered on 08/22/16 03:03 ; Admin Dose 1 MG; Start 08/21/16 at 21:00 Digoxin (Digoxin) 125 mcg AM IV Last administered on 08/24/16 10:10; Admin Dose 125 MCG; Start 08/23/16 at 14:30 Insulin Aspart (Novolog Insulin Pen) NOVOLOG *MILD* ALGORI... Q4 SC Last administered on 4/19/17at 12:32; Admin Dose 2 UNIT; Start 08/25/16 at 13:00 NAHUN DOWNEY NP Aug 25, 2016 17:05
[2016-08-25] MEDS: EPOETIN 3000 UNITS/1 ML INJ (ESRD) SC SCH (18:05)
--- NOTE | 2016-08-25 18:21 | CONS ---
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 no longer able to receive linagliptin due to unable to take po w/ constant BiPAP in place. Mild hyperglycemia. Now on Novolog ISS q4. Will monitor. If gets to be OOC, will add sq therapy. 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 not on chronic dialysis, with long-term current use of insulin Consultation Date/Type/Reason Admit Date/Time Jul 31, 2016 at 19:59 Initial Consult Date 08/06/16 Type of Consultation: Endocrinology Reason for Consultation T2DM management Referring Provider: LALA ORO 24 HR Interval Summary Constitutional: requiring O2 Detailed Summary Respiratory: shortness of breath Cardiovascular: chest pain Gastrointestinal: no complaints Genitourinary: no complaints Musculoskeletal: no complaints Neurologic: no complaints Exam/Review of Systems Vital Signs Vitals VS - Last 72 Hours, by Label Date Time Temp Pulse Resp B/P Pulse Ox O2 Delivery O2 Flow Rate FiO2 08/25/16 17:03 104 94 100 08/25/16 16:07 101 08/25/16 15:47 98.2 101 19 114/46 92 08/25/16 15:15 101 95 100 08/25/16 13:20 100 93 100 08/25/16 12:20 100 08/25/16 12:03 102 08/25/16 11:18 103 98 90 08/25/16 11:06 98.0 102 19 143/53 98 08/25/16 09:25 111 93 100 08/25/16 09:07 98.3 104 19 131/50 98 08/25/16 08:03 103 08/25/16 07:45 101 95 100 08/25/16 05:46 107 98 100 08/25/16 04:27 98.6 98 20 138/69 95 08/25/16 04:22 103 08/25/16 03:21 104 96 100 08/25/16 01:51 107 94 100 08/25/16 00:39 112 08/24/16 23:50 111 92 100 4/18/17 23:38 98.9 100 20 135/62 95 18/17 21:36 114 85 100 1817 20:54 98.9 109 18 152/90 99 1817 20:40 127 79 100 18/17 20:21 178 1817 20:10 106 08/24/16 20:07 91 15.0 100 08/24/16 20:00 Non Rebreather 15.0 08/24/16 19:56 103 26 92 Non Rebreather Mask 15.0 100 1817 19:00 100 17 19:00 100 17 18 18:30 89 17 18:00 87 17 17:30 94 17 17:04 15.0 17 17:00 92 17 16:30 111 17 16:12 111 17 16:00 110 19 08/24/16 16:00 139 99 50 17 16:00 110 08/24/16 15:13 98.2 114 19 140/50 95 17 14:22 122 98 50 17 14:00 28 90 Aerosol Mask 8.0 08/24/16 12:19 102 17 11:24 98.4 79 19 148/52 100 18/17 11:11 106 97 50 17 09:44 100 99 50 17 08:18 106 08/24/16 08:05 107 98 50 17 07:42 98.2 106 20 146/51 97 18/17 06:03 102 97 50 1817 04:13 112 08/24/16 04:00 98.0 109 20 168/67 99 18/17 01:54 96 100 65 1817 00:11 113 18 00:00 98.0 86 20 139/54 100 17 22:20 97 75 17 20:27 99 75 08/23/17 20:13 118 08/23/16 20:00 97.6 88 18 112/54 98 08/23/16 19:50 93 75 4/17/17 19:40 88 22 08/23/16 19:40 85 08/23/16 19:20 89 08/23/16 19:00 91 08/23/16 18:40 88 08/23/16 18:20 90 08/23/16 18:00 93 08/23/16 17:40 62 22 08/23/16 17:40 88 08/23/16 16:39 100 75 08/23/16 16:32 105 08/23/16 13:20 33 82 100 08/23/16 13:20 82 100 08/23/16 12:44 96 15.0 50 08/23/16 12:14 101 08/23/16 11:20 99.3 75 27 152/57 98 08/23/16 08:34 102 08/23/16 07:48 98.6 101 24 142/65 98 08/23/16 07:34 107 98 60 08/23/16 07:34 107 20 98 60 08/23/16 06:25 98 95 60 08/23/16 04:34 102 08/23/16 04:14 98.4 96 24 150/56 94 08/23/16 03:20 97 96 60 08/23/16 01:20 101 94 60 08/23/16 00:27 104 08/22/16 23:53 98.8 86 21 150/54 95 08/22/16 23:30 96 94 60 08/22/16 22:03 97 96 60 08/22/16 21:10 110 93 60 08/22/16 20:32 120 08/22/16 20:00 98.6 102 23 169/59 97 08/22/16 19:53 91 23 96 60 08/22/16 19:50 91 96 60 Vital Signs Date Time Temp Pulse Resp B/P Pulse Ox O2 Delivery O2 Flow Rate FiO2 08/25/16 17:03 104 94 100 08/25/16 15:47 98.2 19 114/46 08/24/16 20:07 15.0 08/24/16 20:00 Non Rebreather Intake and Output 08/24/16 08/24/16 08/25/16 15:00 23:00 07:00 Intake Total 1260 ml 300 ml Output Total 3000 ml Balance -1740 ml 300 ml Exam Constitutional: alert, frail, oriented Psych: anxiety Respiratory: labored breathing Cardiovascular: irregular rhythm (tachycardic) Gastrointestinal: bowel sounds, nl liver, spleen, non-tender, soft, No mass, No rebound or guarding Musculoskeletal: nl extremities to inspection Extremities: normal pulses, No clubbing, No cyanosis, No edema 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, nl mental status, nl speech, nl strength Additional Comments Bedside Glucose - 72 Hours Test 08/22/16 20:52 08/23/16 07:43 08/23/16 11:34 08/23/16 16:54 Bedside Glucose 125mg/dL (70-220) 110mg/dL (70-220) 110mg/dL (70-220) 139mg/dL (70-220) Test 08/23/16 21:30 08/24/16 07:58 08/24/16 11:32 08/24/16 17:45 Bedside Glucose 130mg/dL (70-220) 122mg/dL (70-220) 117mg/dL (70-220) 135mg/dL (70-220) Test 08/24/16 22:28 08/25/16 08:41 08/25/16 12:29 08/25/16 17:06 Bedside Glucose 126mg/dL (70-220) 144mg/dL (70-220) 206mg/dL (70-220) 122mg/dL (70-220) Results Result Diagram: 08/24/16 0845 08/24/16 0700 Results 24 hrs Laboratory Tests Test 08/24/16 21:11 08/24/16 22:28 08/25/16 08:41 08/25/16 12:29 Blood Gas Specimen Source Blood arterial Arterial Blood Date Drawn 08/24/2016 9:20:19 PM Arterial Blood pH (Temp corrected) 7.468 H Arterial Blood pCO2 (Temp correct) 37.8 Arterial Blood pO2 (Temp corrected) 37.8 *L Arterial Blood HCO3 26.8 H Arterial Blood Base Excess 3.0 Arterial Blood Oxygen Saturation 78.5 L Chris Test ACCEPTAB Arterial Blood Gas Puncture Site Right Radial Arterial Blood Carboxyhemoglobin 0.1 Arterial Blood Methemoglobin 0.4 Blood Gas A-a O2 Differential 637.4 H Oxyhemoglobin Percent 78.1 L Total Hemoglobin 10.7 L Blood Gas Temperature 37.0 Blood Gas Respiration Rate 14.0 Blood Gas Actual Respiration Rate 30 Blood Gas Modality MASK - BIPAP FiO2 100.0 Blood Gas Pressure Support 9 Blood Gas IPAP/EPAP Ratio 21/10 Blood Gas Critical Value Read Back Aman CH RN Blood Gas Notified Whom UP Blood Gas Notified Time 08/24/2016 9:32:11 PM Bedside Glucose 126 144 206 Test 08/25/16 17:06 Bedside Glucose 122 Medications Medications Current Medications Atorvastatin Calcium (Lipitor) 40 mg HS PO Last administered on 08/20/16 20:47 ; Admin Dose 40 MG; Start 08/01/16 at 21:00 Calcitriol (Rocaltrol) 0.25 mcg DAILY PO Last administered on 08/20/16 08:40; Admin Dose 0.25 MCG; Start 08/01/16 at 09:00 Calcium/Vitamin D (Oyster Shell/ Vit-D (500/200)) 1 tab BID PO Last administered on 08/20/16 20:47; Admin Dose 1 TAB; Start 08/01/16 at 09:00 Hydralazine HCl (Apresoline) 50 mg Q8 PO Last administered on 08/20/16 06:01; Admin Dose 50 MG; Start 08/01/16 at 06:00 Paroxetine HCl (Paxil) 10 mg DAILY PO Last administered on 08/20/16 08:42; Admin Dose 10 MG; Start 08/01/16 at 09:00 Acetaminophen (Tylenol Tab) 650 mg Q4H PRN PO PAIN AND OR ELEVATED TEMP Last administered on 08/19/16 08:55; Admin Dose 650 MG; Start 08/01/16 at 00:30 Hydralazine HCl (Apresoline) 20 mg Q6H PRN IV ELEVATED BLOOD PRESSURE Last administered on 08/25/16 15:20; Admin Dose 20 MG; Start 08/01/16 at 00:30 Guaifenesin/ Dextromethorphan (Robitussin Dm Liquid Cup) 10 ml Q4H PRN PO COUGH Last administered on 08/20/16 21:07; Admin Dose 10 ML; Start 08/01/16 at 00:30 Epoetin Braden (Epogen (Esrd)) 6,000 units MoWeFr@17 SC Last administered on 08/25 18:05; Admin Dose 6,000 UNITS; Start 08/02/16 at 17:00 Linagliptin (Tradjenta) 5 mg DAILY PO Last administered on 08/20/16 08:42; Admin Dose 5 MG; Start 08/04/16 at 20:00 Salmeterol Xinafoate/ Fluticasone (Advair 250/50 Diskus) 1 inh BID INH Last administered on 08/23/16 21:20; Admin Dose 1 INH; Start 08/08/16 at 11:00 Montelukast Sodium (Singulair) 10 mg HS PO Last administered on 08/20/16 20:47 ; Admin Dose 10 MG; Start 08/08/16 at 21:00 Tiotropium [place] (Spiriva) 1 inh DAILY INH Last administered on 08/22/16 09: 00; Admin Dose 1 INH; Start 08/08/16 at 11:00 Miscellaneous Information 1 ea NOTE XX ; Start 08/13/16 at 17:30 Glucose (Glutose) 15 gm Q15M PRN PO DECREASED GLUCOSE; Start 08/13/16 at 17:30 Glucose (Glutose) 22.5 gm Q15M PRN PO DECREASED GLUCOSE; Start 08/13/16 at 17:30 Dextrose (D50w Syringe) 25 ml Q15M PRN IV DECREASED GLUCOSE; Start 08/13/16 at 17:30 Dextrose (D50w Syringe) 50 ml Q15M PRN IV DECREASED GLUCOSE; Start 08/13/16 at 17:30 Glucagon (Glucagen) 1 mg Q15M PRN IM DECREASED GLUCOSE; Start 08/13/16 at 17:30 Glucose (Glutose) 15 gm Q15M PRN BUCCAL DECREASED GLUCOSE; Start 08/13/16 at 17: 30 Apixaban (Eliquis) 5 mg BID PO Last administered on 08/20/16 20:47; Admin Dose 5 MG; Start 08/17/16 at 21:00 Metoprolol Tartrate (Lopressor) 50 mg BID PO Last administered on 08/20/16 20: 49; Admin Dose 50 MG; Start 08/19/16 at 09:00 Phenol (Cepastat Lozenge) 1 lozenge Q1H PRN MT SORE THROAT Last administered on 08/19/16 18:56; Admin Dose 1 LOZENGE; Start 08/19/16 at 16:30 Diagnostic Test (Pha) (Accu-Chek) 1 ea 02 XX Last administered on 08/22/16 02: 00; Admin Dose 1 EA; Start 08/20/16 at 02:00 Nystatin 1 applic 1 applic BID TOP Last administered on 08/25/16 08:47; Admin Dose 1 APPLIC; Start 08/19/16 at 21:00 Dextrose/Sodium Chloride (D5-1/2ns) 1,000 ml @ 40 mls/hr Q24H IV Last administered on 08/24/16 22:04; Admin Dose 40 MLS/HR; Start 08/20/16 at 13:00 Diltiazem HCl 10 mg 10 mg Q4 PRN IV HR>120 Last administered on 08/24/16 20:59 ; Admin Dose 10 MG; Start 08/20/16 at 18:30 Fluconazole/ Sodium Chloride (Diflucan 100 Mg/ NS (Pmx)) 50 ml @ 50 mls/hr Q24H IVPB Last administered on 08/24/16 22:04; Admin Dose 50 MLS/HR; Start at 21:00 Nystatin (Nystatin Susp) 5 ml QID PO Last administered on 08/22/16 23:02; Admin Dose 5 ML; Start 08/21/16 at 21:00 Lorazepam (Ativan) 1 mg Q2 PRN IV ANXIETY Last administered on 08/22/16 03:03 ; Admin Dose 1 MG; Start 08/21/16 at 21:00 Digoxin (Digoxin) 125 mcg AM IV Last administered on 08/24/16 10:10; Admin Dose 125 MCG; Start 08/23/16 at 14:30 Insulin Aspart (Novolog Insulin Pen) NOVOLOG *MILD* ALGORI... Q4 SC Last administered on 08/25/16 12:32; Admin Dose 2 UNIT; Start 08/25/16 at 13:00 JUDAH NOE MD Aug 25, 2016 18:20
--- NOTE | 2016-08-25 20:28 | CONS ---
Date/Time of Note Date/Time of Note DATE: 08/25/16 TIME: 20:27 Consult Date/Type/Reason Admit Date/Time Jul 31, 2016 at 19:59 Initial Consult Date 08/06/16 Type of Consultation: Card and Vasc inter Ordering Provider: LALA ORO Objective Vital Signs Date Time Temp Pulse Resp B/P Pulse Ox O2 Delivery O2 Flow Rate FiO2 08/25/16 19:27 111 94 100 08/25/16 15:47 98.2 19 114/46 08/24/16 20:07 15.0 08/24/16 20:00 Non Rebreather Intake and Output 08/24/16 08/24/16 08/25/16 15:00 23:00 07:00 Intake Total 1260 ml 300 ml Output Total 3000 ml Balance -1740 ml 300 ml Results/Medications Result Diagram: 08/24/16 0845 08/24/16 0700 Results 24 hrs Laboratory Tests Test 08/24/16 21:11 08/24/16 22:28 08/25/16 08:41 08/25/16 12:29 Blood Gas Specimen Source Blood arterial Arterial Blood Date Drawn 08/24/2016 9:20:19 PM Arterial Blood pH (Temp corrected) 7.468 H Arterial Blood pCO2 (Temp correct) 37.8 Arterial Blood pO2 (Temp corrected) 37.8 *L Arterial Blood HCO3 26.8 H Arterial Blood Base Excess 3.0 Arterial Blood Oxygen Saturation 78.5 L Chris Test ACCEPTAB Arterial Blood Gas Puncture Site Right Radial Arterial Blood Carboxyhemoglobin 0.1 Arterial Blood Methemoglobin 0.4 Blood Gas A-a O2 Differential 637.4 H Oxyhemoglobin Percent 78.1 L Total Hemoglobin 10.7 L Blood Gas Temperature 37.0 Blood Gas Respiration Rate 14.0 Blood Gas Actual Respiration Rate 30 Blood Gas Modality MASK - BIPAP FiO2 100.0 Blood Gas Pressure Support 9 Blood Gas IPAP/EPAP Ratio 15/6 Blood Gas Critical Value Read Back Aman CH RN Blood Gas Notified Whom UP Blood Gas Notified Time 08/24/2016 9:32:11 PM Bedside Glucose 126 144 206 Test 08/25/16 17:06 Bedside Glucose 122 Medications Current Medications Atorvastatin Calcium (Lipitor) 40 mg HS PO Last administered on 08/20/16t 20:47 ; Admin Dose 40 MG; Start 08/01/16 at 21:00 Calcitriol (Rocaltrol) 0.25 mcg DAILY PO Last administered on 08/20/16 08:40; Admin Dose 0.25 MCG; Start 08/01/16 at 09:00 Calcium/Vitamin D (Oyster Shell/ Vit-D (500/200)) 1 tab BID PO Last administered on 08/20/16 20:47; Admin Dose 1 TAB; Start 08/01/16 at 09:00 Hydralazine HCl (Apresoline) 50 mg Q8 PO Last administered on 08/20/16 06:01; Admin Dose 50 MG; Start 08/01/16 at 06:00 Paroxetine HCl (Paxil) 10 mg DAILY PO Last administered on 08/20/16 08:42; Admin Dose 10 MG; Start 08/01/16 at 09:00 Acetaminophen (Tylenol Tab) 650 mg Q4H PRN PO PAIN AND OR ELEVATED TEMP Last administered on 08/19/16 08:55; Admin Dose 650 MG; Start 08/01/16 at 00:30 Hydralazine HCl (Apresoline) 20 mg Q6H PRN IV ELEVATED BLOOD PRESSURE Last administered on 08/25/16 15:20; Admin Dose 20 MG; Start 08/01/16 at 00:30 Guaifenesin/ Dextromethorphan (Robitussin Dm Liquid Cup) 10 ml Q4H PRN PO COUGH Last administered on 08/20/16 21:07; Admin Dose 10 ML; Start 08/01/16 at 00:30 Epoetin Braden (Epogen (Esrd)) 6,000 units MoWeFr@17 SC Last administered on 08/25 18:05; Admin Dose 6,000 UNITS; Start 08/02/16 at 17:00 Linagliptin (Tradjenta) 5 mg DAILY PO Last administered on 08/20/16 08:42; Admin Dose 5 MG; Start 08/04/16 at 20:00 Salmeterol Xinafoate/ Fluticasone (Advair 250/50 Diskus) 1 inh BID INH Last administered on 08/23/16 21:20; Admin Dose 1 INH; Start 08/08/16 at 11:00 Montelukast Sodium (Singulair) 10 mg HS PO Last administered on 08/20/16 20:47 ; Admin Dose 10 MG; Start 08/08/16 at 21:00 Tiotropium [place] (Spiriva) 1 inh DAILY INH Last administered on 08/22/16 09: 00; Admin Dose 1 INH; Start 08/08/16 at 11:00 Miscellaneous Information 1 ea NOTE XX ; Start 08/13/16 at 17:30 Glucose (Glutose) 15 gm Q15M PRN PO DECREASED GLUCOSE; Start 08/13/16 at 17:30 Glucose (Glutose) 22.5 gm Q15M PRN PO DECREASED GLUCOSE; Start 08/13/16 at 17:30 Dextrose (D50w Syringe) 25 ml Q15M PRN IV DECREASED GLUCOSE; Start 08/13/16 at 17:30 Dextrose (D50w Syringe) 50 ml Q15M PRN IV DECREASED GLUCOSE; Start 08/13/16 at 17:30 Glucagon (Glucagen) 1 mg Q15M PRN IM DECREASED GLUCOSE; Start 08/13/16 at 17:30 Glucose (Glutose) 15 gm Q15M PRN BUCCAL DECREASED GLUCOSE; Start 08/13/16 at 17: 30 Apixaban (Eliquis) 5 mg BID PO Last administered on 08/20/16 20:47; Admin Dose 5 MG; Start 08/17/16 at 21:00 Metoprolol Tartrate (Lopressor) 50 mg BID PO Last administered on 08/20/16 20: 49; Admin Dose 50 MG; Start 08/19/16 at 09:00 Phenol (Cepastat Lozenge) 1 lozenge Q1H PRN MT SORE THROAT Last administered on 08/19/16 18:56; Admin Dose 1 LOZENGE; Start 08/19/16 at 16:30 Diagnostic Test (Pha) (Accu-Chek) 1 ea 02 XX Last administered on 08/22/16 02: 00; Admin Dose 1 EA; Start 08/20/16 at 02:00 Nystatin 1 applic 1 applic BID TOP Last administered on 08/25/16 08:47; Admin Dose 1 APPLIC; Start 08/19/16 at 21:00 Dextrose/Sodium Chloride (D5-1/2ns) 1,000 ml @ 40 mls/hr Q24H IV Last administered on 08/24/16 22:04; Admin Dose 40 MLS/HR; Start 08/20/16 at 13:00 Diltiazem HCl 10 mg 10 mg Q4 PRN IV HR>120 Last administered on 08/24/16 20:59 ; Admin Dose 10 MG; Start 08/20/16 at 18:30 Fluconazole/ Sodium Chloride (Diflucan 100 Mg/ NS (Pmx)) 50 ml @ 50 mls/hr Q24H IVPB Last administered on 08/24/16 22:04; Admin Dose 50 MLS/HR; Start at 21:00 Nystatin (Nystatin Susp) 5 ml QID PO Last administered on 08/22/16 23:02; Admin Dose 5 ML; Start 08/21/16 at 21:00 Lorazepam (Ativan) 1 mg Q2 PRN IV ANXIETY Last administered on 08/22/16 03:03 ; Admin Dose 1 MG; Start 08/21/16 at 21:00 Digoxin (Digoxin) 125 mcg AM IV Last administered on 08/24/16 10:10; Admin Dose 125 MCG; Start 08/23/16 at 14:30 Insulin Aspart (Novolog Insulin Pen) NOVOLOG *MILD* ALGORI... Q4 SC Last administered on 08/25/16 12:32; Admin Dose 2 UNIT; Start 08/25/16 at 13:00 Assessment/Plan Chief Complaint/Hosp Course Patient is 85 year old F with PMH of HTN, HLD, CKD now presentezd with SOB and ESRD was started on HD. She already has been planning for Stage IV CKD and had fistula done already. Pt does have some SOB. significant Leg edema. Likely realted to CKD and Diastolic HF. LVEF is nl. Problems: Additional Assessment/Plan Pt is still NPO IV meds pt need swallow eval pt still needs bipap gets desat fast in sinus tachycardia now likely hpoxia vs pain will need PO meds for control PT SIERRA GARCIA MD Aug 25, 2016 20:28
[2016-08-25] MEDS: MONTELUKAST 10 MG TAB PO SCH (20:38)
[2016-08-25] MEDS: ATORVASTATIN 40 MG TAB PO SCH (20:38)
[2016-08-25] MEDS: FLUCONAZOLE 100 MG/NS (PMX) 50 ML IVPB SCH (21:16)
[2016-08-25] MEDS: LORAZEPAM 2 MG INJ IV PRN (22:59)
[2016-08-26] VITALS (31 sets, daily range): BP systolic 135–185; BP diastolic 58–87; PULSE 93–134; RESP 18–24
[2016-08-26] MEDS: INSULIN ASPART [NOVOLOG] 3 ML PEN SC SCH ×6 (01:00→21:00)
[2016-08-26] MEDS: ALBUTEROL/IPRATROPIUM (NEB) 3 ML AMP HHN SCH ×4 (01:17→19:29)
[2016-08-26] MEDS: ACCUCHECK AT 2AM (Patients on SS coverage) XX SCH (01:29)
[2016-08-26] MEDS: FUROSEMIDE 40 MG INJ IV SCH ×2 (05:07→17:49)
[2016-08-26] MEDS: hydrALAzine 20 MG INJ IV PRN ×2 (05:26→15:00)
[2016-08-26] MEDS: DEXTROSE 5%-0.45% NACL 1,000 ML IV SCH ×2 (06:41→13:00)
[2016-08-26 08:18] LABS: ADD SCAN DIFF NO
[2016-08-26 08:23] LABS: ABNORMAL IP MESSAGE 1; BASOPHILS % 0.2 % (0.0-2.0); EOSINOPHILS # 0.1 10^3/ul (0.0-0.5); HEMATOCRIT 34.9 % (37.0-47.0); HEMOGLOBIN 10.7 g/dl (12.0-16.0); LYMPHOCYTES # 0.4 10^3/ul (0.8-2.9); LYMPHOCYTES % 7.2 % (15.0-51.0); MEAN CORPUSCULAR HEMOGLOBIN 27.8 pg (29.0-33.0); MEAN CORPUSCULAR HGB CONC 30.7 g/dl (32.0-37.0); MEAN CORPUSCULAR VOLUME 90.6 fl (82.0-101.0); MEAN PLATELET VOLUME 10.9 fl (7.4-10.4); MONOCYTE # 0.4 10^3/ul (0.3-0.9); MONOCYTES % 7.2 % (0.0-11.0); NEUTROPHIL # 4.1 10^3/ul (1.6-7.5); NEUTROPHILS % 80.3 % (39.0-77.0); NUCLEATED RED BLOOD CELLS% 0.4 /100WBC (0.0-0.0); PLATELET COUNT 146 10^3/UL (140-415); RED BLOOD COUNT 3.85 10^6/ul (4.20-5.40); RED CELL DISTRIBUTION WIDTH 16.4 % (11.5-14.5); WHITE BLOOD COUNT 5.1 10^3/ul (4.8-10.8)
[2016-08-26 08:39] LABS: ALBUMIN 2.5 g/dl (3.3-4.9)
[2016-08-26 08:40] LABS: POTASSIUM 3.3 mmol/L (3.5-5.1)
[2016-08-26 08:42] LABS: BILIRUBIN,INDIRECT 0.3 mg/dl (0-1.1); BILIRUBIN,TOTAL 0.3 mg/dl (0.2-1.3); CREATININE 3.86 mg/dl (0.44-1.00)
[2016-08-26 08:43] LABS: ALBUMIN/GLOBULIN RATIO 0.86; CALCIUM 7.9 mg/dl (8.4-10.2); TOTAL PROTEIN 5.4 g/dl (6.1-8.1)
[2016-08-26] MEDS: TIOTROPIUM 18 MCG CAPSULE INHA DEV INH SCH (09:00)
[2016-08-26] MEDS: CLOTRIMAZOLE 10 MG TROCHE MT SCH ×5 (09:00→20:48)
[2016-08-26] MEDS: SALMETEROL/FLUTICASONE 250/50 INHA INH SCH ×2 (09:00→20:48)
[2016-08-26] MEDS: NYSTATIN SUSP 5 ML CUP PO SCH ×4 (09:00→20:51)
[2016-08-26] MEDS: PAROXETINE 10 MG TAB PO SCH (09:00)
[2016-08-26] MEDS: CALCITRIOL 0.25 MCG CAP PO SCH (09:00)
[2016-08-26] MEDS: CALCIUM/VITAMIN D (500/200) TAB PO SCH ×2 (09:00→20:51)
[2016-08-26] MEDS: LINAGLIPTIN 5 MG TABLET PO SCH (09:00)
[2016-08-26] MEDS: METOPROLOL 25 MG TAB PO SCH ×2 (09:00→20:51)
[2016-08-26] MEDS: APIXABAN 5 MG TABLET PO SCH ×2 (09:00→20:48)
[2016-08-26] MEDS: CALCIUM ACETATE 667 MG CAP PO SCH ×3 (09:18→16:50)
[2016-08-26] MEDS: DIGOXIN 500 MCG INJ IV SCH (09:22)
[2016-08-26] MEDS: NYSTATIN 30 GM POWDER BTL TOP SCH ×2 (09:22→21:33)
--- NOTE | 2016-08-26 11:56 | CONS ---
Date/Time of Note Date/Time of Note DATE: 08/26/16 TIME: 11:54 Assessment/Plan Assessment/Plan Additional Assessment/Plan Assessment recommendations; 1. Patient admitted with acute renal failure not requiring hemodialysis on a regular basis. 2. Recurrent right pleural effusion status post thoracentesis 2. 3. History of diabetes hypertension. 4. The patient's family has decided for DNR status. 5. Profound hypoxemia. 6. Pulmonary edema. Continue current treatment. Patient prognosis is very poor. Hospice should be considered. Consultation Date/Type/Reason Admit Date/Time Jul 31, 2016 at 19:59 Initial Consult Date 08/06/16 Type of Consultation: Pulmonary Referring Provider: LALA ORO 24 HR Interval Summary Free Text/Dictation Patient condition is tenuous at best. Requiring continuous BiPAP at 100% FiO2. Patient however is feeling little better compared to yesterday. General exam; elderly lady on BiPAP appears anxious. Exam/Review of Systems Vital Signs Vitals Vital Signs Date Time Temp Pulse Resp B/P Pulse Ox O2 Delivery O2 Flow Rate FiO2 08/26/16 11:33 98.5 107 23 170/75 92 BIPAP 08/26/16 11:25 100 08/24/16 20:07 15.0 Intake and Output 08/25/16 08/25/16 08/26/16 15:00 23:00 07:00 Intake Total 50 ml 400 ml Balance 50 ml 400 ml Exam HEENT exam is; supple neck, JVD difficult to see. Patient is edentulous. Pupils are small bilaterally. No neck masses. No thyromegaly. Chest examined; diminished breath sounds throughout. S1-S2 audible, no murmurs. Abdomen examination; soft, nondistended. No organomegaly. Bowel sounds audible. Extremity exam; trace peripheral edema. Multiple ecchymoses are are seen in all 4 extremities more pronounced in the left upper extremity. REFERRAL MANAGEMENT LIAISON examination; patient is awake alert follows commands moves all 4 extremities. Results Result Diagram: 08/26/16 0755 08/26/16 0755 Results 24 hrs Laboratory Tests Test 08/25/16 12:29 08/25/16 17:06 08/25/16 21:14 08/26/16 01:28 Bedside Glucose 206 122 125 108 Test 08/26/16 05:24 08/26/16 07:55 08/26/16 09:08 Bedside Glucose 116 119 White Blood Count 5.1 # Red Blood Count 3.85 #L Hemoglobin 10.7 #L Hematocrit 34.9 #L Mean Corpuscular Volume 90.6 Mean Corpuscular Hemoglobin 27.8 L Mean Corpuscular Hemoglobin Concent 30.7 L Red Cell Distribution Width 16.4 H Platelet Count 146 Mean Platelet Volume 10.9 H Neutrophils % 80.3 H Lymphocytes % 7.2 L Monocytes % 7.2 Eosinophils % 1.0 Basophils % 0.2 Nucleated Red Blood Cells % 0.4 H Neutrophils # 4.1 Lymphocytes # 0.4 L Monocytes # 0.4 Eosinophils # 0.1 Basophils # 0.0 Nucleated Red Blood Cells # 0.0 Sodium Level 138 Potassium Level 3.3 L Chloride Level 101 Carbon Dioxide Level 26 Anion Gap 14 Blood Urea Nitrogen 38 H Creatinine 3.86 H Glucose Level 115 Calcium Level 7.9 L Total Bilirubin 0.3 Direct Bilirubin 0.00 Indirect Bilirubin 0.3 Aspartate Amino Transf (AST/SGOT) 21 Alanine Aminotransferase (ALT/SGPT) 28 Alkaline Phosphatase 136 H Total Protein 5.4 L Albumin 2.5 L Globulin 2.90 Albumin/Globulin Ratio 0.86 Medications Medications Current Medications Atorvastatin Calcium (Lipitor) 40 mg HS PO Last administered on 08/20/16 20:47 ; Admin Dose 40 MG; Start 08/01/16 at 21:00 Calcitriol (Rocaltrol) 0.25 mcg DAILY PO Last administered on 08/20/16 08:40; Admin Dose 0.25 MCG; Start 08/01/16 at 09:00 Calcium/Vitamin D (Oyster Shell/ Vit-D (500/200)) 1 tab BID PO Last administered on 08/20/16 20:47; Admin Dose 1 TAB; Start 08/01/16 at 09:00 Hydralazine HCl (Apresoline) 50 mg Q8 PO Last administered on 08/20/16 06:01; Admin Dose 50 MG; Start 08/01/16 at 06:00 Paroxetine HCl (Paxil) 10 mg DAILY PO Last administered on 08/20/16 08:42; Admin Dose 10 MG; Start 08/01/16 at 09:00 Acetaminophen (Tylenol Tab) 650 mg Q4H PRN PO PAIN AND OR ELEVATED TEMP Last administered on 08/19/16 08:55; Admin Dose 650 MG; Start 08/01/16 at 00:30 Hydralazine HCl (Apresoline) 20 mg Q6H PRN IV ELEVATED BLOOD PRESSURE Last administered on 08/26/16 05:26; Admin Dose 20 MG; Start 08/01/16 at 00:30 Guaifenesin/ Dextromethorphan (Robitussin Dm Liquid Cup) 10 ml Q4H PRN PO COUGH Last administered on 08/20/16 21:07; Admin Dose 10 ML; Start 08/01/16 at 00:30 Epoetin Braden (Epogen (Esrd)) 6,000 units MoWeFr@17 SC Last administered on 08/25 18:05; Admin Dose 6,000 UNITS; Start 08/02/16 at 17:00 Linagliptin (Tradjenta) 5 mg DAILY PO Last administered on 08/20/16 08:42; Admin Dose 5 MG; Start 08/04/16 at 20:00 Salmeterol Xinafoate/ Fluticasone (Advair 250/50 Diskus) 1 inh BID INH Last administered on 08/23/16 21:20; Admin Dose 1 INH; Start 08/08/16 at 11:00 Montelukast Sodium (Singulair) 10 mg HS PO Last administered on 08/20/16 20:47 ; Admin Dose 10 MG; Start 08/08/16 at 21:00 Tiotropium [place] (Spiriva) 1 inh DAILY INH Last administered on 08/22/16 09: 00; Admin Dose 1 INH; Start 08/08/16 at 11:00 Miscellaneous Information 1 ea NOTE XX ; Start 08/13/16 at 17:30 Glucose (Glutose) 15 gm Q15M PRN PO DECREASED GLUCOSE; Start 08/13/16 at 17:30 Glucose (Glutose) 22.5 gm Q15M PRN PO DECREASED GLUCOSE; Start 08/13/16 at 17:30 Dextrose (D50w Syringe) 25 ml Q15M PRN IV DECREASED GLUCOSE; Start 08/13/16 at 17:30 Dextrose (D50w Syringe) 50 ml Q15M PRN IV DECREASED GLUCOSE; Start 08/13/16 at 17:30 Glucagon (Glucagen) 1 mg Q15M PRN IM DECREASED GLUCOSE; Start 08/13/16 at 17:30 Glucose (Glutose) 15 gm Q15M PRN BUCCAL DECREASED GLUCOSE; Start 08/13/16 at 17: 30 Apixaban (Eliquis) 5 mg BID PO Last administered on 08/20/16 20:47; Admin Dose 5 MG; Start 08/17/16 at 21:00 Metoprolol Tartrate (Lopressor) 50 mg BID PO Last administered on 08/20/16 20: 49; Admin Dose 50 MG; Start 08/19/16 at 09:00 Phenol (Cepastat Lozenge) 1 lozenge Q1H PRN MT SORE THROAT Last administered on 08/19/16 18:56; Admin Dose 1 LOZENGE; Start 08/19/16 at 16:30 Diagnostic Test (Pha) (Accu-Chek) 1 ea 02 XX Last administered on 08/26/16 01: 29; Admin Dose 1 EA; Start 08/20/16 at 02:00 Nystatin 1 applic 1 applic BID TOP Last administered on 08/26/16 09:22; Admin Dose 1 APPLIC; Start 08/19/16 at 21:00 Dextrose/Sodium Chloride (D5-1/2ns) 1,000 ml @ 40 mls/hr Q24H IV Last administered on 08/26/16 06:41; Admin Dose 40 MLS/HR; Start 08/20/16 at 13:00 Diltiazem HCl 10 mg 10 mg Q4 PRN IV HR>120 Last administered on 08/24/16 20:59 ; Admin Dose 10 MG; Start 08/20/16 at 18:30 Fluconazole/ Sodium Chloride (Diflucan 100 Mg/ NS (Pmx)) 50 ml @ 50 mls/hr Q24H IVPB Last administered on 08/25/16 21:16; Admin Dose 50 MLS/HR; Start at 21:00 Nystatin (Nystatin Susp) 5 ml QID PO Last administered on 08/22/16 23:02; Admin Dose 5 ML; Start 08/21/16 at 21:00 Lorazepam (Ativan) 1 mg Q2 PRN IV ANXIETY Last administered on 08/25/16 22:59 ; Admin Dose 1 MG; Start 08/21/16 at 21:00 Digoxin (Digoxin) 125 mcg AM IV Last administered on 08/26/16 09:22; Admin Dose 125 MCG; Start 08/23/16 at 14:30 Insulin Aspart NOVOLOG *MILD* ALGORI... Q4 SC Last administered on 08/25/16 12 :32; Admin Dose 2 UNIT; Start 08/25/16 at 13:00 Albumin Human (Albumin Human 25%) 100 ml @ 100 mls/hr Q1H IV ; Start 08/26/16 at 11:30; Stop 08/26/16 at 13:29 KOFI HUERTA Aug 26, 2016 11:56
[2016-08-26] MEDS: ALBUMIN HUMAN 25% 100 ML IV SCH ×2 (12:30→13:05)
--- NOTE | 2016-08-26 14:57 | PN ---
Date/Time of Note Date/Time of Note DATE: 08/26/16 TIME: 14:54 Assessment/Plan VTE Prophylaxis VTE Prophylaxis Intervention: other Lines/Catheters IV Catheter Type (from [facility]): Peripheral IV Urinary Cath still in place: No Assessment/Plan Assessment/Plan -Hypokalemia- replet K. AM labs - Acute respiratory insufficiency secondary to pneumonia and pulmonary edema. - Sepsis with bacteremia, status post treatment. - per Dr. Eric in infection disease consultation. - Right-sided pneumonia, status post treatment. - A-fib with RVR, continue Cardizem and Eliquis - per Dr. Stuart in cardiology. - COPD exacerbation, continue breathing treatment. - per Dr. Natarajan in pulmonology consultation - End-stage renal disease stage V. - per Dr. Leon in nephrology consultation. Continue to hemodialysis via right femoral hemodialysis catheter. - Pulmonary edema. Continue to remove fluids with hemodialysis. - Pleural effusions, status post thoracentesis 2. - Anemia of chronic kidney disease. - Diabetes mellitus type 2 hyperglycemia. - per Dr. Garcia in endocrinology consultation. - Hypertension, continue Norvasc. -Left upper extremity AV fistula, non-matured -Status post right hemodialysis non-tunneled catheter placement by Dr. Manning on 08/03. S/p R IJ tunneled hemodialysis catheter placement. -DNI status Further recommendations based on clinical course. Plan of care discussed with Dr. Flores Exam/Review of Systems Vital Signs Vitals Vital Signs Date Time Temp Pulse Resp B/P Pulse Ox O2 Delivery O2 Flow Rate FiO2 08/26/16 14:00 107 08/26/16 14:00 20 08/26/16 11:33 98.5 170/75 92 BIPAP 08/26/16 11:25 100 08/24/16 20:07 15.0 Intake and Output 08/25/16 08/25/16 08/26/16 15:00 23:00 07:00 Intake Total 50 ml 400 ml Balance 50 ml 400 ml Exam Psych: nl mood/affect Head: atraumatic Eyes: nl sclera ENMT: nl external ears & nose Neck: non-tender Respiratory: clear to auscultation Cardiovascular: nl pulses Gastrointestinal: non-tender, soft Extremities: normal pulses Lymph: nontender Results Result Diagram: 08/26/16 0755 08/26/16 0755 Results 24 hrs Laboratory Tests Test 08/25/16 17:06 08/25/16 21:14 08/26/16 01:28 08/26/16 05:24 Bedside Glucose 122 125 108 116 Test 08/26/16 07:55 08/26/16 09:08 08/26/16 13:25 White Blood Count 5.1 # Red Blood Count 3.85 #L Hemoglobin 10.7 #L Hematocrit 34.9 #L Mean Corpuscular Volume 90.6 Mean Corpuscular Hemoglobin 27.8 L Mean Corpuscular Hemoglobin Concent 30.7 L Red Cell Distribution Width 16.4 H Platelet Count 146 Mean Platelet Volume 10.9 H Neutrophils % 80.3 H Lymphocytes % 7.2 L Monocytes % 7.2 Eosinophils % 1.0 Basophils % 0.2 Nucleated Red Blood Cells % 0.4 H Neutrophils # 4.1 Lymphocytes # 0.4 L Monocytes # 0.4 Eosinophils # 0.1 Basophils # 0.0 Nucleated Red Blood Cells # 0.0 Sodium Level 138 Potassium Level 3.3 L Chloride Level 101 Carbon Dioxide Level 26 Anion Gap 14 Blood Urea Nitrogen 38 H Creatinine 3.86 H Glucose Level 115 Calcium Level 7.9 L Total Bilirubin 0.3 Direct Bilirubin 0.00 Indirect Bilirubin 0.3 Aspartate Amino Transf (AST/SGOT) 21 Alanine Aminotransferase (ALT/SGPT) 28 Alkaline Phosphatase 136 H Total Protein 5.4 L Albumin 2.5 L Globulin 2.90 Albumin/Globulin Ratio 0.86 Bedside Glucose 119 143 Medications Medications Current Medications Atorvastatin Calcium (Lipitor) 40 mg HS PO Last administered on 08/20/16 20:47 ; Admin Dose 40 MG; Start 08/01/16 at 21:00 Calcitriol (Rocaltrol) 0.25 mcg DAILY PO Last administered on 08/20/16 08:40; Admin Dose 0.25 MCG; Start 08/01/16 at 09:00 Calcium/Vitamin D (Oyster Shell/ Vit-D (500/200)) 1 tab BID PO Last administered on 08/20/16 20:47; Admin Dose 1 TAB; Start 08/01/16 at 09:00 Hydralazine HCl (Apresoline) 50 mg Q8 PO Last administered on 08/20/16 06:01; Admin Dose 50 MG; Start 08/01/16 at 06:00 Paroxetine HCl (Paxil) 10 mg DAILY PO Last administered on 08/20/16 08:42; Admin Dose 10 MG; Start 08/01/16 at 09:00 Acetaminophen (Tylenol Tab) 650 mg Q4H PRN PO PAIN AND OR ELEVATED TEMP Last administered on 08/19/16 08:55; Admin Dose 650 MG; Start 08/01/16 at 00:30 Hydralazine HCl (Apresoline) 20 mg Q6H PRN IV ELEVATED BLOOD PRESSURE Last administered on 08/26/16 05:26; Admin Dose 20 MG; Start 08/01/16 at 00:30 Guaifenesin/ Dextromethorphan (Robitussin Dm Liquid Cup) 10 ml Q4H PRN PO COUGH Last administered on 08/20/16 21:07; Admin Dose 10 ML; Start 08/01/16 at 00:30 Epoetin Braden (Epogen (Esrd)) 6,000 units MoWeFr@17 SC Last administered on 08/25 18:05; Admin Dose 6,000 UNITS; Start 08/02/16 at 17:00 Linagliptin (Tradjenta) 5 mg DAILY PO Last administered on 08/20/16 08:42; Admin Dose 5 MG; Start 08/04/16 at 20:00 Salmeterol Xinafoate/ Fluticasone (Advair 250/50 Diskus) 1 inh BID INH Last administered on 08/23/16 21:20; Admin Dose 1 INH; Start 08/08/16 at 11:00 Montelukast Sodium (Singulair) 10 mg HS PO Last administered on 08/20/16 20:47 ; Admin Dose 10 MG; Start 08/08/16 at 21:00 Tiotropium [place] (Spiriva) 1 inh DAILY INH Last administered on 08/22/16 09: 00; Admin Dose 1 INH; Start 08/08/16 at 11:00 Miscellaneous Information 1 ea NOTE XX ; Start 08/13/16 at 17:30 Glucose (Glutose) 15 gm Q15M PRN PO DECREASED GLUCOSE; Start 08/13/16 at 17:30 Glucose (Glutose) 22.5 gm Q15M PRN PO DECREASED GLUCOSE; Start 08/13/16 at 17:30 Dextrose (D50w Syringe) 25 ml Q15M PRN IV DECREASED GLUCOSE; Start 08/13/16 at 17:30 Dextrose (D50w Syringe) 50 ml Q15M PRN IV DECREASED GLUCOSE; Start 08/13/16 at 17:30 Glucagon (Glucagen) 1 mg Q15M PRN IM DECREASED GLUCOSE; Start 08/13/16 at 17:30 Glucose (Glutose) 15 gm Q15M PRN BUCCAL DECREASED GLUCOSE; Start 08/13/16 at 17: 30 Apixaban (Eliquis) 5 mg BID PO Last administered on 08/20/16 20:47; Admin Dose 5 MG; Start 08/17/16 at 21:00 Metoprolol Tartrate (Lopressor) 50 mg BID PO Last administered on 08/20/16 20: 49; Admin Dose 50 MG; Start 08/19/16 at 09:00 Phenol (Cepastat Lozenge) 1 lozenge Q1H PRN MT SORE THROAT Last administered on 08/19/16 18:56; Admin Dose 1 LOZENGE; Start 08/19/16 at 16:30 Diagnostic Test (Pha) (Accu-Chek) 1 ea 02 XX Last administered on 08/26/16 01: 29; Admin Dose 1 EA; Start 08/20/16 at 02:00 Nystatin 1 applic 1 applic BID TOP Last administered on 08/26/16 09:22; Admin Dose 1 APPLIC; Start 08/19/16 at 21:00 Dextrose/Sodium Chloride (D5-1/2ns) 1,000 ml @ 40 mls/hr Q24H IV Last administered on 08/26/16 06:41; Admin Dose 40 MLS/HR; Start 08/20/16 at 13:00 Diltiazem HCl 10 mg 10 mg Q4 PRN IV HR>120 Last administered on 08/24/16 20:59 ; Admin Dose 10 MG; Start 08/20/16 at 18:30 Fluconazole/ Sodium Chloride (Diflucan 100 Mg/ NS (Pmx)) 50 ml @ 50 mls/hr Q24H IVPB Last administered on 08/25/16 21:16; Admin Dose 50 MLS/HR; Start at 21:00 Nystatin (Nystatin Susp) 5 ml QID PO Last administered on 08/22/16 23:02; Admin Dose 5 ML; Start 08/21/16 at 21:00 Lorazepam (Ativan) 1 mg Q2 PRN IV ANXIETY Last administered on 08/25/16 22:59 ; Admin Dose 1 MG; Start 08/21/16 at 21:00 Digoxin (Digoxin) 125 mcg AM IV Last administered on 08/26/16 09:22; Admin Dose 125 MCG; Start 08/23/16 at 14:30 Insulin Aspart (Novolog Insulin Pen) NOVOLOG *MILD* ALGORI... Q4 SC Last administered on 08/26/16 13:30; Admin Dose 1 UNIT; Start 08/25/16 at 13:00 LALA ORO Aug 26, 2016 14:57
--- NOTE | 2016-08-26 15:28 | CONS ---
Date/Time of Note Date/Time of Note DATE: 08/26/16 TIME: 15:27 Assessment/Plan Assessment/Plan Chief Complaint/Hosp Course SUBJECTIVE: No events. The patient is in HD, on BiPAP. No fevers. ANTIMICROBIALS: Fluconazole. INDWELLINGS: Right IJ PermCath. PHYSICAL EXAMINATION: GENERAL: Chronically ill-appearing, elderly woman who is awake, in no distress. HEENT: Head atraumatic, normocephalic. Sclerae anicteric. Buccal mucosa dry. NECK: Supple, trachea midline. CHEST: Rise symmetrical. Breath sounds with bilateral crackles. HEART: S1, S2. ABDOMEN: Soft, bowel sounds present. EXTREMITIES: With trace edema. ASSESSMENT: 1. Acute respiratory failure secondary to fluid overload. 2. Status post pneumonia, sepsis and bacteremia. 3. Ongoing pulmonary edema. 4. Oropharyngeal candidiasis, on Diflucan. 5. End-stage renal disease, hemodialysis dependent. PLAN: The patient remains unchanged. She is DNI status. She completed treatment for pneumonia . We will keep her on Diflucan for candidiasis. DW staff Problems: Consultation Date/Type/Reason Admit Date/Time Jul 31, 2016 at 19:59 Initial Consult Date 08/06/16 Type of Consultation: id Referring Provider: LALA ORO Exam/Review of Systems Vital Signs Vitals Vital Signs Date Time Temp Pulse Resp B/P Pulse Ox O2 Delivery O2 Flow Rate FiO2 08/26/16 15:19 93 15.0 100 08/26/16 15:08 97.8 105 18 185/87 08/26/16 11:33 BIPAP Intake and Output 08/25/16 08/25/16 08/26/16 15:00 23:00 07:00 Intake Total 50 ml 400 ml Balance 50 ml 400 ml Results Result Diagram: 08/26/16 0755 08/26/16 0755 Results 24 hrs Laboratory Tests Test 08/25/16 17:06 08/25/16 21:14 08/26/16 01:28 08/26/16 05:24 Bedside Glucose 122 125 108 116 Test 08/26/16 07:55 08/26/16 09:08 08/26/16 13:25 White Blood Count 5.1 # Red Blood Count 3.85 #L Hemoglobin 10.7 #L Hematocrit 34.9 #L Mean Corpuscular Volume 90.6 Mean Corpuscular Hemoglobin 27.8 L Mean Corpuscular Hemoglobin Concent 30.7 L Red Cell Distribution Width 16.4 H Platelet Count 146 Mean Platelet Volume 10.9 H Neutrophils % 80.3 H Lymphocytes % 7.2 L Monocytes % 7.2 Eosinophils % 1.0 Basophils % 0.2 Nucleated Red Blood Cells % 0.4 H Neutrophils # 4.1 Lymphocytes # 0.4 L Monocytes # 0.4 Eosinophils # 0.1 Basophils # 0.0 Nucleated Red Blood Cells # 0.0 Sodium Level 138 Potassium Level 3.3 L Chloride Level 101 Carbon Dioxide Level 26 Anion Gap 14 Blood Urea Nitrogen 38 H Creatinine 3.86 H Glucose Level 115 Calcium Level 7.9 L Total Bilirubin 0.3 Direct Bilirubin 0.00 Indirect Bilirubin 0.3 Aspartate Amino Transf (AST/SGOT) 21 Alanine Aminotransferase (ALT/SGPT) 28 Alkaline Phosphatase 136 H Total Protein 5.4 L Albumin 2.5 L Globulin 2.90 Albumin/Globulin Ratio 0.86 Bedside Glucose 119 143 Medications Medications Current Medications Atorvastatin Calcium (Lipitor) 40 mg HS PO Last administered on 08/20/16 20:47 ; Admin Dose 40 MG; Start 08/01/16 at 21:00 Calcitriol (Rocaltrol) 0.25 mcg DAILY PO Last administered on 08/20/16 08:40; Admin Dose 0.25 MCG; Start 08/01/16 at 09:00 Calcium/Vitamin D (Oyster Shell/ Vit-D (500/200)) 1 tab BID PO Last administered on 08/20/16 20:47; Admin Dose 1 TAB; Start 08/01/16 at 09:00 Hydralazine HCl (Apresoline) 50 mg Q8 PO Last administered on 08/20/16 06:01; Admin Dose 50 MG; Start 08/01/16 at 06:00 Paroxetine HCl (Paxil) 10 mg DAILY PO Last administered on 08/20/16 08:42; Admin Dose 10 MG; Start 08/01/16 at 09:00 Acetaminophen (Tylenol Tab) 650 mg Q4H PRN PO PAIN AND OR ELEVATED TEMP Last administered on 08/19/16 08:55; Admin Dose 650 MG; Start 08/01/16 at 00:30 Hydralazine HCl (Apresoline) 20 mg Q6H PRN IV ELEVATED BLOOD PRESSURE Last administered on 08/26/16 15:00; Admin Dose 20 MG; Start 08/01/16 at 00:30 Guaifenesin/ Dextromethorphan (Robitussin Dm Liquid Cup) 10 ml Q4H PRN PO COUGH Last administered on 08/20/16 21:07; Admin Dose 10 ML; Start 08/01/16 at 00:30 Epoetin Braden (Epogen (Esrd)) 6,000 units MoWeFr@17 SC Last administered on 08/25 18:05; Admin Dose 6,000 UNITS; Start 08/02/16 at 17:00 Linagliptin (Tradjenta) 5 mg DAILY PO Last administered on 08/20/16 08:42; Admin Dose 5 MG; Start 08/04/16 at 20:00 Salmeterol Xinafoate/ Fluticasone (Advair 250/50 Diskus) 1 inh BID INH Last administered on 08/23/16 21:20; Admin Dose 1 INH; Start 08/08/16 at 11:00 Montelukast Sodium (Singulair) 10 mg HS PO Last administered on 08/20/16 20:47 ; Admin Dose 10 MG; Start 08/08/16 at 21:00 Tiotropium [place] (Spiriva) 1 inh DAILY INH Last administered on 08/22/16 09: 00; Admin Dose 1 INH; Start 08/08/16 at 11:00 Miscellaneous Information 1 ea NOTE XX ; Start 08/13/16 at 17:30 Glucose (Glutose) 15 gm Q15M PRN PO DECREASED GLUCOSE; Start 08/13/16 at 17:30 Glucose (Glutose) 22.5 gm Q15M PRN PO DECREASED GLUCOSE; Start 08/13/16 at 17:30 Dextrose (D50w Syringe) 25 ml Q15M PRN IV DECREASED GLUCOSE; Start 08/13/16 at 17:30 Dextrose (D50w Syringe) 50 ml Q15M PRN IV DECREASED GLUCOSE; Start 08/13/16 at 17:30 Glucagon (Glucagen) 1 mg Q15M PRN IM DECREASED GLUCOSE; Start 08/13/16 at 17:30 Glucose (Glutose) 15 gm Q15M PRN BUCCAL DECREASED GLUCOSE; Start 08/13/16 at 17: 30 Apixaban (Eliquis) 5 mg BID PO Last administered on 08/20/16 20:47; Admin Dose 5 MG; Start 08/17/16 at 21:00 Metoprolol Tartrate (Lopressor) 50 mg BID PO Last administered on 08/20/16 20: 49; Admin Dose 50 MG; Start 08/19/16 at 09:00 Phenol (Cepastat Lozenge) 1 lozenge Q1H PRN MT SORE THROAT Last administered on 08/19/16 18:56; Admin Dose 1 LOZENGE; Start 08/19/16 at 16:30 Diagnostic Test (Pha) (Accu-Chek) 1 ea 02 XX Last administered on 08/26/16 01: 29; Admin Dose 1 EA; Start 08/20/16 at 02:00 Nystatin 1 applic 1 applic BID TOP Last administered on 08/26/16 09:22; Admin Dose 1 APPLIC; Start 08/19/16 at 21:00 Dextrose/Sodium Chloride (D5-1/2ns) 1,000 ml @ 40 mls/hr Q24H IV Last administered on 08/26/16 06:41; Admin Dose 40 MLS/HR; Start 08/20/16 at 13:00 Diltiazem HCl 10 mg 10 mg Q4 PRN IV HR>120 Last administered on 08/24/16 20:59 ; Admin Dose 10 MG; Start 08/20/16 at 18:30 Fluconazole/ Sodium Chloride (Diflucan 100 Mg/ NS (Pmx)) 50 ml @ 50 mls/hr Q24H IVPB Last administered on 08/25/16 21:16; Admin Dose 50 MLS/HR; Start at 21:00 Nystatin (Nystatin Susp) 5 ml QID PO Last administered on 08/22/16 23:02; Admin Dose 5 ML; Start 08/21/16 at 21:00 Lorazepam (Ativan) 1 mg Q2 PRN IV ANXIETY Last administered on 08/25/16 22:59 ; Admin Dose 1 MG; Start 08/21/16 at 21:00 Digoxin (Digoxin) 125 mcg AM IV Last administered on 08/26/16 09:22; Admin Dose 125 MCG; Start 08/23/16 at 14:30 Insulin Aspart NOVOLOG *MILD* ALGORI... Q4 SC Last administered on 4/20/17at 13 :30; Admin Dose 1 UNIT; Start 08/25/16 at 13:00 Potassium Chloride/Sodium Chloride (KCl/NS) 110 ml @ 55 mls/hr ONCE ONCE IVPB ; Start 08/26/16 at 17:00; Stop 08/26/16 at 18:59 NAHUN DOWNEY NP Aug 26, 2016 15:28
[2016-08-26 15:58] LABS: ADD SCAN DIFF NO
[2016-08-26] MEDS ORDERED: POTASSIUM CHLORIDE 20 MEQ in SOD CHLORIDE 0.9% 100 ML IVPB ONE (17:00)
[2016-08-26 17:07] LABS: ABNORMAL IP MESSAGE 1; BASOPHILS % 0.2 % (0.0-2.0); EOSINOPHILS % 0.6 % (0.0-7.0); HEMATOCRIT 33.8 % (37.0-47.0); HEMOGLOBIN 10.7 g/dl (12.0-16.0); LYMPHOCYTES # 0.6 10^3/ul (0.8-2.9); LYMPHOCYTES % 8.9 % (15.0-51.0); MEAN CORPUSCULAR HEMOGLOBIN 28.7 pg (29.0-33.0); MEAN CORPUSCULAR HGB CONC 31.7 g/dl (32.0-37.0); MEAN CORPUSCULAR VOLUME 90.6 fl (82.0-101.0); MEAN PLATELET VOLUME 11.2 fl (7.4-10.4); MONOCYTE # 0.5 10^3/ul (0.3-0.9); MONOCYTES % 7.2 % (0.0-11.0); NEUTROPHIL # 4.9 10^3/ul (1.6-7.5); NEUTROPHILS % 78.5 % (39.0-77.0); NUCLEATED RED BLOOD CELLS% 0.6 /100WBC (0.0-0.0); PLATELET COUNT 148 10^3/UL (140-415); RED BLOOD COUNT 3.73 10^6/ul (4.20-5.40); RED CELL DISTRIBUTION WIDTH 16.5 % (11.5-14.5); WHITE BLOOD COUNT 6.3 10^3/ul (4.8-10.8)
--- NOTE | 2016-08-26 18:26 | CONS ---
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 Resp. status appears worse daily despite best efforts of primary teams. Expect poor prognosis. Will sign off for now and follow peripherally and reevaluate if BG is elevated. 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 not on chronic dialysis, with long-term current use of insulin Consultation Date/Type/Reason Admit Date/Time Jul 31, 2016 at 19:59 Initial Consult Date 08/06/16 Type of Consultation: Endocrinology Reason for Consultation T2DM Referring Provider: LALA ORO 24 HR Interval Summary Subjective hx not possible: pt non-verbal Exam/Review of Systems Vital Signs Vitals VS - Last 72 Hours, by Label Date Time Temp Pulse Resp B/P Pulse Ox O2 Delivery O2 Flow Rate FiO2 08/26/16 17:40 112 97 100 08/26/16 16:42 134 08/26/16 15:29 150/69 08/26/16 15:22 111 95 100 08/26/16 15:19 93 15.0 100 08/26/16 15:08 97.8 105 18 185/87 99 08/26/16 14:00 107 08/26/16 14:00 107 20 08/26/16 13:30 108 08/26/16 13:20 93 93 100 08/26/16 13:00 107 08/26/16 12:30 106 08/26/16 12:21 106 08/26/16 12:00 110 08/26/16 11:33 98.5 107 23 170/75 92 BIPAP 08/26/16 11:30 108 08/26/16 11:25 98 93 100 08/26/16 11:15 107 08/26/16 11:00 107 20 08/26/16 11:00 107 08/26/16 09:28 101 95 100 08/26/16 08:50 106 24 94 100 08/26/16 08:22 102 08/26/16 07:43 98.3 63 18 138/63 92 4/20/17 07:30 103 95 100 20/17 05:06 105 95 100 20/17 04:34 96 20/17 04:15 97.8 98 20 172/72 96 20/17 03:10 111 93 100 20/17 01:25 103 20/17 01:17 105 94 100 1917 23:59 97.6 104 20 153/74 98 17 23:09 110 93 100 17 21:34 108 92 100 17 21:26 103 143/53 17 20:35 108 17 20:05 97.6 87 16 164/79 92 17 19:27 111 94 100 17 17:03 104 94 100 17 16:07 101 17 15:47 98.2 101 19 114/46 92 17 15:15 101 95 100 17 13:20 100 93 100 17 12:20 100 17 12:03 102 17 11:18 103 98 90 17 11:06 98.0 102 19 143/53 98 17 09:25 111 93 100 17 09:07 98.3 104 19 131/50 98 17 08:03 103 17 07:45 101 95 100 17 05:46 107 98 100 17 04:27 98.6 98 20 138/69 95 17 04:22 103 17 03:21 104 96 100 1917 01:51 107 94 100 1917 00:39 112 18/17 23:50 111 92 100 18/17 23:38 98.9 100 20 135/62 95 18/17 21:36 114 85 100 18/17 20:54 98.9 109 18 152/90 99 18/17 20:40 127 79 100 18/17 20:21 178 18/17 20:10 106 1817 20:07 91 15.0 100 17 20:00 Non Rebreather 15.0 08/24/16 19:56 103 26 92 Non Rebreather Mask 15.0 100 08/24/16 19:00 100 08/24/16 19:00 100 17 08/24/16 18:30 89 08/24/16 18:00 87 08/24/16 17:30 94 08/24/16 17:04 15.0 08/24/16 17:00 92 08/24/16 16:30 111 08/24/16 16:12 111 08/24/16 16:00 110 19 08/24/16 16:00 139 99 50 08/24/16 16:00 110 08/24/16 15:13 98.2 114 19 140/50 95 08/24/16 14:22 122 98 50 08/24/16 14:00 28 90 Aerosol Mask 8.0 08/24/16 12:19 102 08/24/16 11:24 98.4 79 19 148/52 100 08/24/16 11:11 106 97 50 08/24/16 09:44 100 99 50 08/24/16 08:18 106 08/24/16 08:05 107 98 50 08/24/16 07:42 98.2 106 20 146/51 97 08/24/16 06:03 102 97 50 08/24/16 04:13 112 08/24/16 04:00 98.0 109 20 168/67 99 08/24/16 01:54 96 100 65 08/24/16 00:11 113 08/24/16 00:00 98.0 86 20 139/54 100 08/23/16 22:20 97 75 08/23/16 20:27 99 75 08/23/16 20:13 118 08/23/16 20:00 97.6 88 18 112/54 98 08/23/16 19:50 93 75 08/23/16 19:40 88 22 08/23/16 19:40 85 08/23/16 19:20 89 08/23/16 19:00 91 08/23/16 18:40 88 Vital Signs Date Time Temp Pulse Resp B/P Pulse Ox O2 Delivery O2 Flow Rate FiO2 08/26/16 17:40 112 97 100 08/26/16 15:29 150/69 08/26/16 15:19 15.0 08/26/16 15:08 97.8 18 08/26/16 11:33 BIPAP Intake and Output 08/25/16 08/25/16 08/26/16 15:00 23:00 07:00 Intake Total 50 ml 400 ml Balance 50 ml 400 ml Exam Constitutional: frail, non-verbal, No alert Respiratory: clear to auscultation, normal air movement Cardiovascular: nl pulses, regular rate and rhythm, No edema, No murmurs/extra sounds, No rub Gastrointestinal: nl liver, spleen, non-tender, soft Musculoskeletal: nl extremities to inspection Extremities: No clubbing, No cyanosis, No edema 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: lethargic Additional Comments Bedside Glucose - 72 Hours Test 08/23/16 21:30 08/24/16 07:58 08/24/16 11:32 08/24/16 17:45 Bedside Glucose 130mg/dL (70-220) 122mg/dL (70-220) 117mg/dL (70-220) 135mg/dL (70-220) Test 08/24/16 22:28 08/25/16 08:41 08/25/16 12:29 08/25/16 17:06 Bedside Glucose 126mg/dL (70-220) 144mg/dL (70-220) 206mg/dL (70-220) 122mg/dL (70-220) Test 08/25/16 21:14 08/26/16 01:28 08/26/16 05:24 08/26/16 09:08 Bedside Glucose 125mg/dL (70-220) 108mg/dL (70-220) 116mg/dL (70-220) 119mg/dL (70-220) Test 08/26/16 13:25 08/26/16 17:21 Bedside Glucose 143mg/dL (70-220) 152mg/dL (70-220) Results Result Diagram: 08/26/16 1540 08/26/16 0755 Results 24 hrs Laboratory Tests Test 08/25/16 21:14 08/26/16 01:28 08/26/16 05:24 08/26/16 07:55 Bedside Glucose 125 108 116 White Blood Count 5.1 # Red Blood Count 3.85 #L Hemoglobin 10.7 #L Hematocrit 34.9 #L Mean Corpuscular Volume 90.6 Mean Corpuscular Hemoglobin 27.8 L Mean Corpuscular Hemoglobin Concent 30.7 L Red Cell Distribution Width 16.4 H Platelet Count 146 Mean Platelet Volume 10.9 H Neutrophils % 80.3 H Lymphocytes % 7.2 L Monocytes % 7.2 Eosinophils % 1.0 Basophils % 0.2 Nucleated Red Blood Cells % 0.4 H Neutrophils # 4.1 Lymphocytes # 0.4 L Monocytes # 0.4 Eosinophils # 0.1 Basophils # 0.0 Nucleated Red Blood Cells # 0.0 Sodium Level 138 Potassium Level 3.3 L Chloride Level 101 Carbon Dioxide Level 26 Anion Gap 14 Blood Urea Nitrogen 38 H Creatinine 3.86 H Glucose Level 115 Calcium Level 7.9 L Total Bilirubin 0.3 Direct Bilirubin 0.00 Indirect Bilirubin 0.3 Aspartate Amino Transf (AST/SGOT) 21 Alanine Aminotransferase (ALT/SGPT) 28 Alkaline Phosphatase 136 H Total Protein 5.4 L Albumin 2.5 L Globulin 2.90 Albumin/Globulin Ratio 0.86 Test 08/26/16 09:08 08/26/16 13:25 08/26/16 15:40 08/26/16 17:21 Bedside Glucose 119 143 152 White Blood Count 6.3 # Red Blood Count 3.73 L Hemoglobin 10.7 L Hematocrit 33.8 L Mean Corpuscular Volume 90.6 Mean Corpuscular Hemoglobin 28.7 L Mean Corpuscular Hemoglobin Concent 31.7 L Red Cell Distribution Width 16.5 H Platelet Count 148 Mean Platelet Volume 11.2 H Neutrophils % 78.5 H Lymphocytes % 8.9 L Monocytes % 7.2 Eosinophils % 0.6 Basophils % 0.2 Nucleated Red Blood Cells % 0.6 H Neutrophils # 4.9 Lymphocytes # 0.6 L Monocytes # 0.5 Eosinophils # 0.0 Basophils # 0.0 Nucleated Red Blood Cells # 0.0 Medications Medications Current Medications Atorvastatin Calcium (Lipitor) 40 mg HS PO Last administered on 08/20/16 20:47 ; Admin Dose 40 MG; Start 08/01/16 at 21:00 Calcitriol (Rocaltrol) 0.25 mcg DAILY PO Last administered on 08/20/16 08:40; Admin Dose 0.25 MCG; Start 08/01/16 at 09:00 Calcium/Vitamin D (Oyster Shell/ Vit-D (500/200)) 1 tab BID PO Last administered on 08/20/16 20:47; Admin Dose 1 TAB; Start 08/01/16 at 09:00 Hydralazine HCl (Apresoline) 50 mg Q8 PO Last administered on 08/20/16 06:01; Admin Dose 50 MG; Start 08/01/16 at 06:00 Paroxetine HCl (Paxil) 10 mg DAILY PO Last administered on 08/20/16 08:42; Admin Dose 10 MG; Start 08/01/16 at 09:00 Acetaminophen (Tylenol Tab) 650 mg Q4H PRN PO PAIN AND OR ELEVATED TEMP Last administered on 08/19/16 08:55; Admin Dose 650 MG; Start 08/01/16 at 00:30 Hydralazine HCl (Apresoline) 20 mg Q6H PRN IV ELEVATED BLOOD PRESSURE Last administered on 08/26/16 15:00; Admin Dose 20 MG; Start 08/01/16 at 00:30 Guaifenesin/ Dextromethorphan (Robitussin Dm Liquid Cup) 10 ml Q4H PRN PO COUGH Last administered on 08/20/16 21:07; Admin Dose 10 ML; Start 08/01/16 at 00:30 Epoetin Braden (Epogen (Esrd)) 6,000 units MoWeFr@17 SC Last administered on 08/25 18:05; Admin Dose 6,000 UNITS; Start 08/02/16 at 17:00 Linagliptin (Tradjenta) 5 mg DAILY PO Last administered on 08/20/16 08:42; Admin Dose 5 MG; Start 08/04/16 at 20:00 Salmeterol Xinafoate/ Fluticasone (Advair 250/50 Diskus) 1 inh BID INH Last administered on 08/23/16 21:20; Admin Dose 1 INH; Start 08/08/16 at 11:00 Montelukast Sodium (Singulair) 10 mg HS PO Last administered on 08/20/16 20:47 ; Admin Dose 10 MG; Start 08/08/16 at 21:00 Tiotropium [place] (Spiriva) 1 inh DAILY INH Last administered on 08/22/16 09: 00; Admin Dose 1 INH; Start 08/08/16 at 11:00 Miscellaneous Information 1 ea NOTE XX ; Start 08/13/16 at 17:30 Glucose (Glutose) 15 gm Q15M PRN PO DECREASED GLUCOSE; Start 08/13/16 at 17:30 Glucose (Glutose) 22.5 gm Q15M PRN PO DECREASED GLUCOSE; Start 08/13/16 at 17:30 Dextrose (D50w Syringe) 25 ml Q15M PRN IV DECREASED GLUCOSE; Start 08/13/16 at 17:30 Dextrose (D50w Syringe) 50 ml Q15M PRN IV DECREASED GLUCOSE; Start 08/13/16 at 17:30 Glucagon (Glucagen) 1 mg Q15M PRN IM DECREASED GLUCOSE; Start 08/13/16 at 17:30 Glucose (Glutose) 15 gm Q15M PRN BUCCAL DECREASED GLUCOSE; Start 08/13/16 at 17: 30 Apixaban (Eliquis) 5 mg BID PO Last administered on 08/20/16 20:47; Admin Dose 5 MG; Start 08/17/16 at 21:00 Metoprolol Tartrate (Lopressor) 50 mg BID PO Last administered on 08/20/16 20: 49; Admin Dose 50 MG; Start 08/19/16 at 09:00 Phenol (Cepastat Lozenge) 1 lozenge Q1H PRN MT SORE THROAT Last administered on 08/19/16 18:56; Admin Dose 1 LOZENGE; Start 08/19/16 at 16:30 Diagnostic Test (Pha) (Accu-Chek) 1 ea 02 XX Last administered on 08/26/16 01: 29; Admin Dose 1 EA; Start 08/20/16 at 02:00 Nystatin 1 applic 1 applic BID TOP Last administered on 08/26/16 09:22; Admin Dose 1 APPLIC; Start 08/19/16 at 21:00 Dextrose/Sodium Chloride (D5-1/2ns) 1,000 ml @ 40 mls/hr Q24H IV Last administered on 08/26/16 06:41; Admin Dose 40 MLS/HR; Start 08/20/16 at 13:00 Diltiazem HCl 10 mg 10 mg Q4 PRN IV HR>120 Last administered on 08/24/16 20:59 ; Admin Dose 10 MG; Start 08/20/16 at 18:30 Fluconazole/ Sodium Chloride (Diflucan 100 Mg/ NS (Pmx)) 50 ml @ 50 mls/hr Q24H IVPB Last administered on 08/25/16 21:16; Admin Dose 50 MLS/HR; Start at 21:00 Nystatin (Nystatin Susp) 5 ml QID PO Last administered on 08/22/16 23:02; Admin Dose 5 ML; Start 08/21/16 at 21:00 Lorazepam (Ativan) 1 mg Q2 PRN IV ANXIETY Last administered on 08/25/16 22:59 ; Admin Dose 1 MG; Start 08/21/16 at 21:00 Digoxin (Digoxin) 125 mcg AM IV Last administered on 08/26/16 09:22; Admin Dose 125 MCG; Start 08/23/16 at 14:30 Insulin Aspart NOVOLOG *MILD* ALGORI... Q4 SC Last administered on 08/26/16 17 :48; Admin Dose 1 UNIT; Start 08/25/16 at 13:00 Potassium Chloride/Sodium Chloride (KCl/NS) 110 ml @ 55 mls/hr ONCE ONCE IVPB Last administered on 08/26/16 17:23; Admin Dose 55 MLS/HR; Start 08/26/16 at 17:00; Stop 08/26/16 at 18:59 JUDAH NOE MD Aug 26, 2016 18:26
--- NOTE | 2016-08-26 18:56 | CONS ---
Date/Time of Note Date/Time of Note DATE: 08/26/16 TIME: 18:55 Consult Date/Type/Reason Admit Date/Time Jul 31, 2016 at 19:59 Initial Consult Date 08/06/16 Type of Consultation: Card and vasc int Ordering Provider: LALA ORO Objective Vital Signs Date Time Temp Pulse Resp B/P Pulse Ox O2 Delivery O2 Flow Rate FiO2 08/26/16 17:40 112 97 100 08/26/16 15:29 150/69 08/26/16 15:19 15.0 08/26/16 15:08 97.8 18 08/26/16 11:33 BIPAP Intake and Output 08/25/16 08/25/16 08/26/16 15:00 23:00 07:00 Intake Total 50 ml 400 ml Balance 50 ml 400 ml Results/Medications Result Diagram: 08/26/16 1540 08/26/16 0755 Results 24 hrs Laboratory Tests Test 08/25/16 21:14 08/26/16 01:28 08/26/16 05:24 08/26/16 07:55 Bedside Glucose 125 108 116 White Blood Count 5.1 # Red Blood Count 3.85 #L Hemoglobin 10.7 #L Hematocrit 34.9 #L Mean Corpuscular Volume 90.6 Mean Corpuscular Hemoglobin 27.8 L Mean Corpuscular Hemoglobin Concent 30.7 L Red Cell Distribution Width 16.4 H Platelet Count 146 Mean Platelet Volume 10.9 H Neutrophils % 80.3 H Lymphocytes % 7.2 L Monocytes % 7.2 Eosinophils % 1.0 Basophils % 0.2 Nucleated Red Blood Cells % 0.4 H Neutrophils # 4.1 Lymphocytes # 0.4 L Monocytes # 0.4 Eosinophils # 0.1 Basophils # 0.0 Nucleated Red Blood Cells # 0.0 Sodium Level 138 Potassium Level 3.3 L Chloride Level 101 Carbon Dioxide Level 26 Anion Gap 14 Blood Urea Nitrogen 38 H Creatinine 3.86 H Glucose Level 115 Calcium Level 7.9 L Total Bilirubin 0.3 Direct Bilirubin 0.00 Indirect Bilirubin 0.3 Aspartate Amino Transf (AST/SGOT) 21 Alanine Aminotransferase (ALT/SGPT) 28 Alkaline Phosphatase 136 H Total Protein 5.4 L Albumin 2.5 L Globulin 2.90 Albumin/Globulin Ratio 0.86 Test 08/26/16 09:08 08/26/16 13:25 08/26/16 15:40 08/26/16 17:21 Bedside Glucose 119 143 152 White Blood Count 6.3 # Red Blood Count 3.73 L Hemoglobin 10.7 L Hematocrit 33.8 L Mean Corpuscular Volume 90.6 Mean Corpuscular Hemoglobin 28.7 L Mean Corpuscular Hemoglobin Concent 31.7 L Red Cell Distribution Width 16.5 H Platelet Count 148 Mean Platelet Volume 11.2 H Neutrophils % 78.5 H Lymphocytes % 8.9 L Monocytes % 7.2 Eosinophils % 0.6 Basophils % 0.2 Nucleated Red Blood Cells % 0.6 H Neutrophils # 4.9 Lymphocytes # 0.6 L Monocytes # 0.5 Eosinophils # 0.0 Basophils # 0.0 Nucleated Red Blood Cells # 0.0 Medications Current Medications Atorvastatin Calcium (Lipitor) 40 mg HS PO Last administered on 08/20/16 20:47 ; Admin Dose 40 MG; Start 08/01/16 at 21:00 Calcitriol (Rocaltrol) 0.25 mcg DAILY PO Last administered on 08/20/16 08:40; Admin Dose 0.25 MCG; Start 08/01/16 at 09:00 Calcium/Vitamin D (Oyster Shell/ Vit-D (500/200)) 1 tab BID PO Last administered on 08/20/16 20:47; Admin Dose 1 TAB; Start 08/01/16 at 09:00 Hydralazine HCl (Apresoline) 50 mg Q8 PO Last administered on 08/20/16 06:01; Admin Dose 50 MG; Start 08/01/16 at 06:00 Paroxetine HCl (Paxil) 10 mg DAILY PO Last administered on 08/20/16 08:42; Admin Dose 10 MG; Start 08/01/16 at 09:00 Acetaminophen (Tylenol Tab) 650 mg Q4H PRN PO PAIN AND OR ELEVATED TEMP Last administered on 08/19/16 08:55; Admin Dose 650 MG; Start 08/01/16 at 00:30 Hydralazine HCl (Apresoline) 20 mg Q6H PRN IV ELEVATED BLOOD PRESSURE Last administered on 08/26/16 15:00; Admin Dose 20 MG; Start 08/01/16 at 00:30 Guaifenesin/ Dextromethorphan (Robitussin Dm Liquid Cup) 10 ml Q4H PRN PO COUGH Last administered on 08/20/16 21:07; Admin Dose 10 ML; Start 08/01/16 at 00:30 Epoetin Braden (Epogen (Esrd)) 6,000 units MoWeFr@17 SC Last administered on 08/25 18:05; Admin Dose 6,000 UNITS; Start 08/02/16 at 17:00 Linagliptin (Tradjenta) 5 mg DAILY PO Last administered on 08/20/16 08:42; Admin Dose 5 MG; Start 08/04/16 at 20:00 Salmeterol Xinafoate/ Fluticasone (Advair 250/50 Diskus) 1 inh BID INH Last administered on 08/23/16 21:20; Admin Dose 1 INH; Start 08/08/16 at 11:00 Montelukast Sodium (Singulair) 10 mg HS PO Last administered on 08/20/16 20:47 ; Admin Dose 10 MG; Start 08/08/16 at 21:00 Tiotropium [place] (Spiriva) 1 inh DAILY INH Last administered on 08/22/16 09: 00; Admin Dose 1 INH; Start 08/08/16 at 11:00 Miscellaneous Information 1 ea NOTE XX ; Start 08/13/16 at 17:30 Glucose (Glutose) 15 gm Q15M PRN PO DECREASED GLUCOSE; Start 08/13/16 at 17:30 Glucose (Glutose) 22.5 gm Q15M PRN PO DECREASED GLUCOSE; Start 08/13/16 at 17:30 Dextrose (D50w Syringe) 25 ml Q15M PRN IV DECREASED GLUCOSE; Start 08/13/16 at 17:30 Dextrose (D50w Syringe) 50 ml Q15M PRN IV DECREASED GLUCOSE; Start 08/13/16 at 17:30 Glucagon (Glucagen) 1 mg Q15M PRN IM DECREASED GLUCOSE; Start 08/13/16 at 17:30 Glucose (Glutose) 15 gm Q15M PRN BUCCAL DECREASED GLUCOSE; Start 08/13/16 at 17: 30 Apixaban (Eliquis) 5 mg BID PO Last administered on 08/20/16 20:47; Admin Dose 5 MG; Start 08/17/16 at 21:00 Metoprolol Tartrate (Lopressor) 50 mg BID PO Last administered on 08/20/16 20: 49; Admin Dose 50 MG; Start 08/19/16 at 09:00 Phenol (Cepastat Lozenge) 1 lozenge Q1H PRN MT SORE THROAT Last administered on 08/19/16 18:56; Admin Dose 1 LOZENGE; Start 08/19/16 at 16:30 Diagnostic Test (Pha) (Accu-Chek) 1 ea 02 XX Last administered on 08/26/16 01: 29; Admin Dose 1 EA; Start 08/20/16 at 02:00 Nystatin 1 applic 1 applic BID TOP Last administered on 08/26/16 09:22; Admin Dose 1 APPLIC; Start 08/19/16 at 21:00 Dextrose/Sodium Chloride (D5-1/2ns) 1,000 ml @ 40 mls/hr Q24H IV Last administered on 08/26/16 06:41; Admin Dose 40 MLS/HR; Start 08/20/16 at 13:00 Diltiazem HCl 10 mg 10 mg Q4 PRN IV HR>120 Last administered on 08/24/16 20:59 ; Admin Dose 10 MG; Start 08/20/16 at 18:30 Fluconazole/ Sodium Chloride (Diflucan 100 Mg/ NS (Pmx)) 50 ml @ 50 mls/hr Q24H IVPB Last administered on 08/25/16 21:16; Admin Dose 50 MLS/HR; Start at 21:00 Nystatin (Nystatin Susp) 5 ml QID PO Last administered on 08/22/16 23:02; Admin Dose 5 ML; Start 08/21/16 at 21:00 Lorazepam (Ativan) 1 mg Q2 PRN IV ANXIETY Last administered on 08/25/16 22:59 ; Admin Dose 1 MG; Start 08/21/16 at 21:00 Digoxin (Digoxin) 125 mcg AM IV Last administered on 08/26/16 09:22; Admin Dose 125 MCG; Start 08/23/16 at 14:30 Insulin Aspart NOVOLOG *MILD* ALGORI... Q4 SC Last administered on 08/26/16 17 :48; Admin Dose 1 UNIT; Start 08/25/16 at 13:00 Potassium Chloride/Sodium Chloride (KCl/NS) 110 ml @ 55 mls/hr ONCE ONCE IVPB Last administered on 4/20/17at 17:23; Admin Dose 55 MLS/HR; Start 08/26/16 at 17:00; Stop 08/26/16 at 18:59 Assessment/Plan Chief Complaint/Hosp Course Patient is 85 year old F with PMH of HTN, HLD, CKD now presentezd with SOB and ESRD was started on HD. She already has been planning for Stage IV CKD and had fistula done already. Pt does have some SOB. significant Leg edema. Likely realted to CKD and Diastolic HF. LVEF is nl. Problems: Additional Assessment/Plan pt in sinus rhythm stable ngt once clear for oral please start her on Cardizem and BB as well as amio HD continue will . /.SIERRA Don MD Aug 26, 2016 18:56
--- NOTE | 2016-08-26 19:39 | CONS ---
Date/Time of Note Date/Time of Note DATE: 08/26/16 TIME: 19:37 Assessment/Plan Assessment/Plan Chief Complaint/Hosp Course IMPRESSION: 1. End-stage renal disease stage V. 2. Fluid overload.better on hd 3. Pulmonary edema./pleural effusion/lung infilterate s/p thoracenresis 4. Anemia of chronic kidney disease. 5. History of diabetes mellitus. 6. 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 7. AV fistula on the left upper extremity. 8 pneumonia/bronchites 9 thoracentesis s/p 10 s/p arrthymia 11 vdrf 12 hypokalemia plan continue hd fluis res antibiotic per pulmonary dnr and dni per chart Problems: Consultation Date/Type/Reason Admit Date/Time Jul 31, 2016 at 19:59 Initial Consult Date 08/01/16 Type of Consultation: renal Referring Provider: LALA ORO 24 HR Interval Summary Constitutional: other (s/p hd and now on bipap) Exam/Review of Systems Vital Signs Vitals Vital Signs Date Time Temp Pulse Resp B/P Pulse Ox O2 Delivery O2 Flow Rate FiO2 08/26/16 19:33 107 98 100 08/26/16 15:29 150/69 08/26/16 15:19 15.0 08/26/16 15:08 97.8 18 08/26/16 11:33 BIPAP Intake and Output 08/25/16 08/25/16 08/26/16 15:00 23:00 07:00 Intake Total 50 ml 400 ml Balance 50 ml 400 ml Exam Neck: supple Respiratory: clear to auscultation, congested cough Cardiovascular: regular rate and rhythm Gastrointestinal: soft Genitourinary - Female: nl adnexae Musculoskeletal: nl extremities to inspection Results Result Diagram: 08/26/16 1540 08/26/16 0755 Results 24 hrs Laboratory Tests Test 08/25/16 21:14 08/26/16 01:28 08/26/16 05:24 08/26/16 07:55 Bedside Glucose 125 108 116 White Blood Count 5.1 # Red Blood Count 3.85 #L Hemoglobin 10.7 #L Hematocrit 34.9 #L Mean Corpuscular Volume 90.6 Mean Corpuscular Hemoglobin 27.8 L Mean Corpuscular Hemoglobin Concent 30.7 L Red Cell Distribution Width 16.4 H Platelet Count 146 Mean Platelet Volume 10.9 H Neutrophils % 80.3 H Lymphocytes % 7.2 L Monocytes % 7.2 Eosinophils % 1.0 Basophils % 0.2 Nucleated Red Blood Cells % 0.4 H Neutrophils # 4.1 Lymphocytes # 0.4 L Monocytes # 0.4 Eosinophils # 0.1 Basophils # 0.0 Nucleated Red Blood Cells # 0.0 Sodium Level 138 Potassium Level 3.3 L Chloride Level 101 Carbon Dioxide Level 26 Anion Gap 14 Blood Urea Nitrogen 38 H Creatinine 3.86 H Glucose Level 115 Calcium Level 7.9 L Total Bilirubin 0.3 Direct Bilirubin 0.00 Indirect Bilirubin 0.3 Aspartate Amino Transf (AST/SGOT) 21 Alanine Aminotransferase (ALT/SGPT) 28 Alkaline Phosphatase 136 H Total Protein 5.4 L Albumin 2.5 L Globulin 2.90 Albumin/Globulin Ratio 0.86 Test 08/26/16 09:08 08/26/16 13:25 08/26/16 15:40 08/26/16 17:21 Bedside Glucose 119 143 152 White Blood Count 6.3 # Red Blood Count 3.73 L Hemoglobin 10.7 L Hematocrit 33.8 L Mean Corpuscular Volume 90.6 Mean Corpuscular Hemoglobin 28.7 L Mean Corpuscular Hemoglobin Concent 31.7 L Red Cell Distribution Width 16.5 H Platelet Count 148 Mean Platelet Volume 11.2 H Neutrophils % 78.5 H Lymphocytes % 8.9 L Monocytes % 7.2 Eosinophils % 0.6 Basophils % 0.2 Nucleated Red Blood Cells % 0.6 H Neutrophils # 4.9 Lymphocytes # 0.6 L Monocytes # 0.5 Eosinophils # 0.0 Basophils # 0.0 Nucleated Red Blood Cells # 0.0 Medications Medications Current Medications Atorvastatin Calcium (Lipitor) 40 mg HS PO Last administered on 08/20/16 20:47 ; Admin Dose 40 MG; Start 08/01/16 at 21:00 Calcitriol (Rocaltrol) 0.25 mcg DAILY PO Last administered on 08/20/16 08:40; Admin Dose 0.25 MCG; Start 08/01/16 at 09:00 Calcium/Vitamin D (Oyster Shell/ Vit-D (500/200)) 1 tab BID PO Last administered on 08/20/16 20:47; Admin Dose 1 TAB; Start 08/01/16 at 09:00 Hydralazine HCl (Apresoline) 50 mg Q8 PO Last administered on 08/20/16 06:01; Admin Dose 50 MG; Start 08/01/16 at 06:00 Paroxetine HCl (Paxil) 10 mg DAILY PO Last administered on 08/20/16 08:42; Admin Dose 10 MG; Start 08/01/16 at 09:00 Acetaminophen (Tylenol Tab) 650 mg Q4H PRN PO PAIN AND OR ELEVATED TEMP Last administered on 08/19/16 08:55; Admin Dose 650 MG; Start 08/01/16 at 00:30 Hydralazine HCl (Apresoline) 20 mg Q6H PRN IV ELEVATED BLOOD PRESSURE Last administered on 08/26/16 15:00; Admin Dose 20 MG; Start 08/01/16 at 00:30 Guaifenesin/ Dextromethorphan (Robitussin Dm Liquid Cup) 10 ml Q4H PRN PO COUGH Last administered on 08/20/16 21:07; Admin Dose 10 ML; Start 08/01/16 at 00:30 Epoetin Braden (Epogen (Esrd)) 6,000 units MoWeFr@17 SC Last administered on 08/25 18:05; Admin Dose 6,000 UNITS; Start 08/02/16 at 17:00 Linagliptin (Tradjenta) 5 mg DAILY PO Last administered on 08/20/16 08:42; Admin Dose 5 MG; Start 08/04/16 at 20:00 Salmeterol Xinafoate/ Fluticasone (Advair 250/50 Diskus) 1 inh BID INH Last administered on 08/23/16 21:20; Admin Dose 1 INH; Start 08/08/16 at 11:00 Montelukast Sodium (Singulair) 10 mg HS PO Last administered on 08/20/16 20:47 ; Admin Dose 10 MG; Start 08/08/16 at 21:00 Tiotropium [place] (Spiriva) 1 inh DAILY INH Last administered on 08/22/16 09: 00; Admin Dose 1 INH; Start 08/08/16 at 11:00 Miscellaneous Information 1 ea NOTE XX ; Start 08/13/16 at 17:30 Glucose (Glutose) 15 gm Q15M PRN PO DECREASED GLUCOSE; Start 08/13/16 at 17:30 Glucose (Glutose) 22.5 gm Q15M PRN PO DECREASED GLUCOSE; Start 08/13/16 at 17:30 Dextrose (D50w Syringe) 25 ml Q15M PRN IV DECREASED GLUCOSE; Start 08/13/16 at 17:30 Dextrose (D50w Syringe) 50 ml Q15M PRN IV DECREASED GLUCOSE; Start 08/13/16 at 17:30 Glucagon (Glucagen) 1 mg Q15M PRN IM DECREASED GLUCOSE; Start 08/13/16 at 17:30 Glucose (Glutose) 15 gm Q15M PRN BUCCAL DECREASED GLUCOSE; Start 08/13/16 at 17: 30 Apixaban (Eliquis) 5 mg BID PO Last administered on 08/20/16 20:47; Admin Dose 5 MG; Start 08/17/16 at 21:00 Metoprolol Tartrate (Lopressor) 50 mg BID PO Last administered on 08/20/16 20: 49; Admin Dose 50 MG; Start 08/19/16 at 09:00 Phenol (Cepastat Lozenge) 1 lozenge Q1H PRN MT SORE THROAT Last administered on 08/19/16 18:56; Admin Dose 1 LOZENGE; Start 08/19/16 at 16:30 Diagnostic Test (Pha) (Accu-Chek) 1 ea 02 XX Last administered on 08/26/16 01: 29; Admin Dose 1 EA; Start 08/20/16 at 02:00 Nystatin 1 applic 1 applic BID TOP Last administered on 08/26/16 09:22; Admin Dose 1 APPLIC; Start 08/19/16 at 21:00 Dextrose/Sodium Chloride (D5-1/2ns) 1,000 ml @ 40 mls/hr Q24H IV Last administered on 08/26/16 06:41; Admin Dose 40 MLS/HR; Start 08/20/16 at 13:00 Diltiazem HCl 10 mg 10 mg Q4 PRN IV HR>120 Last administered on 08/24/16 20:59 ; Admin Dose 10 MG; Start 08/20/16 at 18:30 Fluconazole/ Sodium Chloride (Diflucan 100 Mg/ NS (Pmx)) 50 ml @ 50 mls/hr Q24H IVPB Last administered on 08/25/16 21:16; Admin Dose 50 MLS/HR; Start at 21:00 Nystatin (Nystatin Susp) 5 ml QID PO Last administered on 08/22/16 23:02; Admin Dose 5 ML; Start 08/21/16 at 21:00 Lorazepam (Ativan) 1 mg Q2 PRN IV ANXIETY Last administered on 08/25/16 22:59 ; Admin Dose 1 MG; Start 08/21/16 at 21:00 Digoxin (Digoxin) 125 mcg AM IV Last administered on 08/26/16 09:22; Admin Dose 125 MCG; Start 08/23/16 at 14:30 Insulin Aspart (Novolog Insulin Pen) NOVOLOG *MILD* ALGORI... Q4 SC Last administered on 08/26/16 17:48; Admin Dose 1 UNIT; Start 08/25/16 at 13:00 DAT OLSON MD Aug 26, 2016 19:38
[2016-08-26] MEDS: ATORVASTATIN 40 MG TAB PO SCH (20:49)
[2016-08-26] MEDS: MONTELUKAST 10 MG TAB PO SCH (20:51)
[2016-08-26] MEDS: FLUCONAZOLE 100 MG/NS (PMX) 50 ML IVPB SCH (21:32)
[2016-08-27] VITALS (26 sets, daily range): BP systolic 81–185; BP diastolic 60–79; PULSE 100–120; RESP 22–38
[2016-08-27] MEDS: INSULIN ASPART [NOVOLOG] 3 ML PEN SC SCH ×6 (01:00→21:34)
[2016-08-27] MEDS: ALBUTEROL/IPRATROPIUM (NEB) 3 ML AMP HHN SCH ×4 (01:28→19:33)
[2016-08-27] MEDS: ACCUCHECK AT 2AM (Patients on SS coverage) XX SCH (01:36)
[2016-08-27] MEDS: FUROSEMIDE 40 MG INJ IV SCH ×2 (05:37→18:00)
[2016-08-27 07:43] LABS: POTASSIUM 3.7 mmol/L (3.5-5.1)
[2016-08-27 07:45] LABS: CREATININE 3.26 mg/dl (0.44-1.00)
[2016-08-27 07:46] LABS: CALCIUM 8.5 mg/dl (8.4-10.2)
[2016-08-27] MEDS: CALCIUM ACETATE 667 MG CAP PO SCH ×3 (07:55→17:55)
[2016-08-27] MEDS: PAROXETINE 10 MG TAB PO SCH (09:00)
[2016-08-27] MEDS: CLOTRIMAZOLE 10 MG TROCHE MT SCH ×5 (09:00→21:00)
[2016-08-27] MEDS: SALMETEROL/FLUTICASONE 250/50 INHA INH SCH ×2 (09:00→21:29)
[2016-08-27] MEDS: LINAGLIPTIN 5 MG TABLET PO SCH (09:00)
[2016-08-27] MEDS: NYSTATIN SUSP 5 ML CUP PO SCH ×4 (09:00→21:29)
[2016-08-27] MEDS: CALCIUM/VITAMIN D (500/200) TAB PO SCH ×2 (09:00→21:00)
[2016-08-27] MEDS: TIOTROPIUM 18 MCG CAPSULE INHA DEV INH SCH (09:00)
[2016-08-27] MEDS: APIXABAN 5 MG TABLET PO SCH ×2 (09:00→21:00)
[2016-08-27] MEDS: METOPROLOL 25 MG TAB PO SCH ×2 (09:00→21:00)
[2016-08-27] MEDS: DIGOXIN 500 MCG INJ IV SCH (09:21)
[2016-08-27] MEDS: NYSTATIN 30 GM POWDER BTL TOP SCH ×2 (09:25→21:29)
[2016-08-27] MEDS: CALCITRIOL 0.25 MCG CAP PO SCH (10:12)
--- NOTE | 2016-08-27 11:15 | CONS ---
Date/Time of Note Date/Time of Note DATE: 08/27/16 TIME: 11:13 Assessment/Plan Assessment/Plan Chief Complaint/Hosp Course 1. End-stage renal disease stage V. 2. Fluid overload.better on hd 3. Pulmonary edema./pleural effusion/lung infilterate s/p thoracenresis 4. Anemia of chronic kidney disease. 5. History of diabetes mellitus. 6. 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 7. AV fistula on the left upper extremity. 8 pneumonia/bronchites 9 thoracentesis s/p 10 s/p arrthymia 11 vdrf 12 hypokalemia plan continue hd Problems: Additional Assessment/Plan 1. Per primary Md 2. Prognosis poor Consultation Date/Type/Reason Admit Date/Time Jul 31, 2016 at 19:59 Initial Consult Date 08/01/16 Type of Consultation: renal Reason for Consultation Dr Leon Referring Provider: LALA ORO 24 HR Interval Summary Subjective hx not possible: pt non-verbal Constitutional: disoriented, requiring O2 Exam/Review of Systems Vital Signs Vitals Vital Signs Date Time Temp Pulse Resp B/P Pulse Ox O2 Delivery O2 Flow Rate FiO2 08/27/16 09:17 100 08/27/16 08:05 25 94 80 08/27/16 07:36 98.3 173/73 08/26/16 15:19 15.0 08/26/16 11:33 BIPAP Intake and Output 08/26/16 08/26/16 08/27/16 15:00 23:00 07:00 Intake Total 500 ml 50 ml 420 ml Output Total 3500 ml Balance -3000 ml 50 ml 420 ml Exam Constitutional: non-verbal Head: normocephalic Eyes: nl conjunctiva ENMT: nl external ears & nose Neck: supple Respiratory: diminished breath sounds, labored breathing, other (on BIPAP) Cardiovascular: irregular rhythm, jugular venous distention (JVD) Gastrointestinal: soft Genitourinary - Female: nl adnexae Extremities: edema Results Result Diagram: 08/26/16 1540 08/27/16 0620 Results 24 hrs Laboratory Tests Test 08/26/16 13:25 08/26/16 15:40 08/26/16 17:21 08/26/16 21:30 Bedside Glucose 143 152 124 White Blood Count 6.3 # Red Blood Count 3.73 L Hemoglobin 10.7 L Hematocrit 33.8 L Mean Corpuscular Volume 90.6 Mean Corpuscular Hemoglobin 28.7 L Mean Corpuscular Hemoglobin Concent 31.7 L Red Cell Distribution Width 16.5 H Platelet Count 148 Mean Platelet Volume 11.2 H Neutrophils % 78.5 H Lymphocytes % 8.9 L Monocytes % 7.2 Eosinophils % 0.6 Basophils % 0.2 Nucleated Red Blood Cells % 0.6 H Neutrophils # 4.9 Lymphocytes # 0.6 L Monocytes # 0.5 Eosinophils # 0.0 Basophils # 0.0 Nucleated Red Blood Cells # 0.0 Test 08/27/16 01:35 08/27/16 05:36 08/27/16 06:20 08/27/16 08:57 Bedside Glucose 128 134 152 Sodium Level 138 Potassium Level 3.7 Chloride Level 100 Carbon Dioxide Level 25 Anion Gap 17 H Blood Urea Nitrogen 29 H Creatinine 3.26 H Glucose Level 150 Calcium Level 8.5 Medications Medications Current Medications Atorvastatin Calcium (Lipitor) 40 mg HS PO Last administered on 08/20/16 20:47 ; Admin Dose 40 MG; Start 08/01/16 at 21:00 Calcitriol (Rocaltrol) 0.25 mcg DAILY PO Last administered on 08/20/16 08:40; Admin Dose 0.25 MCG; Start 08/01/16 at 09:00 Calcium/Vitamin D (Oyster Shell/ Vit-D (500/200)) 1 tab BID PO Last administered on 08/20/16 20:47; Admin Dose 1 TAB; Start 08/01/16 at 09:00 Hydralazine HCl (Apresoline) 50 mg Q8 PO Last administered on 08/20/16 06:01; Admin Dose 50 MG; Start 08/01/16 at 06:00 Paroxetine HCl (Paxil) 10 mg DAILY PO Last administered on 08/20/16 08:42; Admin Dose 10 MG; Start 08/01/16 at 09:00 Acetaminophen (Tylenol Tab) 650 mg Q4H PRN PO PAIN AND OR ELEVATED TEMP Last administered on 08/19/16 08:55; Admin Dose 650 MG; Start 08/01/16 at 00:30 Hydralazine HCl (Apresoline) 20 mg Q6H PRN IV ELEVATED BLOOD PRESSURE Last administered on 08/26/16 15:00; Admin Dose 20 MG; Start 08/01/16 at 00:30 Guaifenesin/ Dextromethorphan (Robitussin Dm Liquid Cup) 10 ml Q4H PRN PO COUGH Last administered on 08/20/16 21:07; Admin Dose 10 ML; Start 08/01/16 at 00:30 Epoetin Braden (Epogen (Esrd)) 6,000 units MoWeFr@17 SC Last administered on 08/25 18:05; Admin Dose 6,000 UNITS; Start 08/02/16 at 17:00 Linagliptin (Tradjenta) 5 mg DAILY PO Last administered on 08/20/16 08:42; Admin Dose 5 MG; Start 08/04/16 at 20:00 Salmeterol Xinafoate/ Fluticasone (Advair 250/50 Diskus) 1 inh BID INH Last administered on 08/23/16 21:20; Admin Dose 1 INH; Start 08/08/16 at 11:00 Montelukast Sodium (Singulair) 10 mg HS PO Last administered on 08/20/16 20:47 ; Admin Dose 10 MG; Start 08/08/16 at 21:00 Tiotropium [place] (Spiriva) 1 inh DAILY INH Last administered on 08/22/16 09: 00; Admin Dose 1 INH; Start 08/08/16 at 11:00 Miscellaneous Information 1 ea NOTE XX ; Start 08/13/16 at 17:30 Glucose (Glutose) 15 gm Q15M PRN PO DECREASED GLUCOSE; Start 08/13/16 at 17:30 Glucose (Glutose) 22.5 gm Q15M PRN PO DECREASED GLUCOSE; Start 08/13/16 at 17:30 Dextrose (D50w Syringe) 25 ml Q15M PRN IV DECREASED GLUCOSE; Start 08/13/16 at 17:30 Dextrose (D50w Syringe) 50 ml Q15M PRN IV DECREASED GLUCOSE; Start 08/13/16 at 17:30 Glucagon (Glucagen) 1 mg Q15M PRN IM DECREASED GLUCOSE; Start 08/13/16 at 17:30 Glucose (Glutose) 15 gm Q15M PRN BUCCAL DECREASED GLUCOSE; Start 08/13/16 at 17: 30 Apixaban (Eliquis) 5 mg BID PO Last administered on 08/20/16 20:47; Admin Dose 5 MG; Start 08/17/16 at 21:00 Metoprolol Tartrate (Lopressor) 50 mg BID PO Last administered on 08/20/16 20: 49; Admin Dose 50 MG; Start 08/19/16 at 09:00 Phenol (Cepastat Lozenge) 1 lozenge Q1H PRN MT SORE THROAT Last administered on 08/19/16 18:56; Admin Dose 1 LOZENGE; Start 08/19/16 at 16:30 Diagnostic Test (Pha) (Accu-Chek) 1 ea 02 XX Last administered on 08/27/16 01: 36; Admin Dose 1 EA; Start 08/20/16 at 02:00 Nystatin 1 applic 1 applic BID TOP Last administered on 08/27/16 09:25; Admin Dose 1 APPLIC; Start 08/19/16 at 21:00 Dextrose/Sodium Chloride (D5-1/2ns) 1,000 ml @ 40 mls/hr Q24H IV Last administered on 08/26/16 06:41; Admin Dose 40 MLS/HR; Start 08/20/16 at 13:00 Diltiazem HCl 10 mg 10 mg Q4 PRN IV HR>120 Last administered on 08/24/16 20:59 ; Admin Dose 10 MG; Start 08/20/16 at 18:30 Fluconazole/ Sodium Chloride (Diflucan 100 Mg/ NS (Pmx)) 50 ml @ 50 mls/hr Q24H IVPB Last administered on 08/26/16 21:32; Admin Dose 50 MLS/HR; Start at 21:00 Nystatin (Nystatin Susp) 5 ml QID PO Last administered on 08/22/16 23:02; Admin Dose 5 ML; Start 08/21/16 at 21:00 Lorazepam (Ativan) 1 mg Q2 PRN IV ANXIETY Last administered on 08/25/16 22:59 ; Admin Dose 1 MG; Start 08/21/16 at 21:00 Digoxin (Digoxin) 125 mcg AM IV Last administered on 08/27/16 09:21; Admin Dose 125 MCG; Start 08/23/16 at 14:30 Insulin Aspart (Novolog Insulin Pen) NOVOLOG *MILD* ALGORI... Q4 SC Last administered on 4/20/17at 17:48; Admin Dose 1 UNIT; Start 08/25/16 at 13:00 LOUISE LAWRENCE Aug 27, 2016 11:15
--- NOTE | 2016-08-27 11:38 | CONS ---
DATE OF ADMISSION: 07/31/2016 DATE OF CONSULTATION: TYPE OF CONSULTATION: Palliative Care ASSESSMENT AND PLAN: I had a conversation with the patient's son today and he is unavailable for a family conference today. I will be meeting him tomorrow morning at 10:00 in the room. The patient is a DO NOT INTUBATE at this point. I think we need to clarify that and whether or not he understan ds that his mother would still require transfer to the intensive care unit and pressor support, etc. , so that will be addressed. The second issue is the patient's primary care team has made a recomme ndation for hospice care, and I will address that with family members. Currently, she is on BiPAP a nd saturating at 80% on 90% FIO2. From reviewing her medical records, she was debilitated and has n ot significantly improved throughout this hospitalization. Therefore, I will address with family me mbers whether or not they would want her to continue in this debilitated condition for whatever kourtney od of time that she is alive. HISTORY OF PRESENT ILLNESS: This is an elderly and appears to be a very debilitated female who was admitted to [facility] on 08/01/2016. Her admission diagnosis at that time was ac [place] respiratory failure, pulmonary congestion and pulmonary edema, chronic renal insufficiency on he modialysis, multiple other chronic medical problems including coronary heart disease, hyperlipidemia , hypertension, chronic obstructive pulmonary disease. Throughout this hospitalization, she has bee n seen by many consultants and essentially has not improved throughout this hospital course. Still some element of pulmonary edema. She has been treated for respiratory failure, sepsis, pneumonia, a trial fibrillation with RVR on anticoagulation and Cardizem, close attention to her end-stage renal disease, still receiving dialysis, as well as other comorbid medical problems. She is a DO NOT INTU TAI at this time. Participants on the conversation tomorrow will be her son. Background and socia l history as per history of present illness primarily, otherwise noncontributory. I will discussed with him patient's acceptable quality of life and hospice, goals of care, if they are in agreement. However, I think the way the patient looks at this time, she probably will require hospice care in house. Communication preferences will be 1 on and I will discuss caregiver concerns tomorrow yaritza tionally. PHYSICAL EXAMINATION: GENERAL: Shows an ill-appearing female currently on BiPAP, not responding to any verbal or tactile stimulation. VITAL SIGNS: Blood pressure 173/73, pulse of 102 and regular, respirations 24, 98% saturations on 8 0% FIO2, temperature 98.1 degrees. Estimated prognosis just based on my examination is extremely poor and PPS of 10%. It is unknown at this time whether or not family members have been spoken with about the patient's very poor prognos is. My impressions are with the quality of care she has received, family members have in all likeli vazquez spoken to the primary care team and have been counseled that the patient's prognosis is extreme ly poor. This is why her code status was changed to DO NOT INTUBATE. RECOMMENDATIONS: Are as above. I see no indication that the patient should be on pain control medi cations at this time. I will explore psychological and spiritual issues with family members. Also , I will need to find out who is the decision maker on the patient's behalf. I cannot find a POLST form in the patient's chart, I will discuss it with family members also. Dictated By: RONAN ANTOINE MD, LP/SYED Conf#: [id number] DID#: [id number]
--- NOTE | 2016-08-27 15:27 | PN ---
Date/Time of Note Date/Time of Note DATE: 08/27/16 TIME: 15:23 Assessment/Plan VTE Prophylaxis VTE Prophylaxis Intervention: SCD's Lines/Catheters IV Catheter Type (from [facility]): Peripheral IV Urinary Cath still in place: No Assessment/Plan Chief Complaint/Hosp Course Assessment and plan: - Acute respiratory insufficiency secondary to pneumonia and pulmonary edema. - Sepsis with bacteremia, status post treatment. Dr. rEic is following in infection disease consultation. - Right-sided pneumonia, status post treatment. - A-fib with RVR, continue Cardizem and Eliquiz, patient is followed by Dr. Stuart in cardiology. - COPD exacerbation, continue breathing treatment. Dr. Natarajan is following in pulmonology consultation - End-stage renal disease stage V. Dr. Leno is following in nephrology consultation. Continue to hemodialysis via right femoral hemodialysis catheter. - Pulmonary edema. Continue to remove fluids with hemodialysis. - Pleural effusions, status post thoracentesis 2. - Anemia of chronic kidney disease. - Diabetes mellitus type [address] Garcia is following an endocrinology consultation. - Hypertension, continue Norvasc. -Left upper extremity AV fistula, non-matured -Status post right hemodialysis non-tunneled catheter placement by Dr. Manning on 08/03. S/p R IJ tunneled hemodialysis catheter placement. -DNI status Further recommendations based on clinical course. Plan of care discussed with Dr. Flores Problems: Subjective 24 Hr Interval Summary Free Text/Dictation Patient continues on BiPAP, remains slightly tachycardic, afebrile. Exam/Review of Systems Vital Signs Vitals Vital Signs Date Time Temp Pulse Resp B/P Pulse Ox O2 Delivery O2 Flow Rate FiO2 08/27/16 13:14 108 96 60 08/27/16 13:12 30 08/27/16 12:01 98.9 166/70 08/26/16 15:19 15.0 08/26/16 11:33 BIPAP Intake and Output 08/26/16 08/26/16 08/27/16 15:00 23:00 07:00 Intake Total 500 ml 50 ml 420 ml Output Total 3500 ml Balance -3000 ml 50 ml 420 ml Exam Constitutional: alert, oriented Psych: no complaints Head: atraumatic, normocephalic Eyes: nl conjunctiva ENMT: nl external ears & nose, nl lips & teeth Neck: non-tender, supple Respiratory: Rhonchi bilaterally, diminished air entry bilaterally. Cardiovascular: nl pulses, regular rate and rhythm Gastrointestinal: non-tender, soft Musculoskeletal: nl extremities to inspection Extremities: normal pulses 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: PANTOMIMIST II-XII intact Additional Comments Left upper extremities with AV fistula with palpable thrill and audible bruit Right IJ permacath Results Result Diagram: 08/26/16 1540 08/27/16 0620 Results 24 hrs Laboratory Tests Test 08/26/16 15:40 08/26/16 17:21 08/26/16 21:30 08/27/16 01:35 White Blood Count 6.3 # Red Blood Count 3.73 L Hemoglobin 10.7 L Hematocrit 33.8 L Mean Corpuscular Volume 90.6 Mean Corpuscular Hemoglobin 28.7 L Mean Corpuscular Hemoglobin Concent 31.7 L Red Cell Distribution Width 16.5 H Platelet Count 148 Mean Platelet Volume 11.2 H Neutrophils % 78.5 H Lymphocytes % 8.9 L Monocytes % 7.2 Eosinophils % 0.6 Basophils % 0.2 Nucleated Red Blood Cells % 0.6 H Neutrophils # 4.9 Lymphocytes # 0.6 L Monocytes # 0.5 Eosinophils # 0.0 Basophils # 0.0 Nucleated Red Blood Cells # 0.0 Bedside Glucose 152 124 128 Test 08/27/16 05:36 08/27/16 06:20 08/27/16 08:57 Bedside Glucose 134 152 Sodium Level 138 Potassium Level 3.7 Chloride Level 100 Carbon Dioxide Level 25 Anion Gap 17 H Blood Urea Nitrogen 29 H Creatinine 3.26 H Glucose Level 150 Calcium Level 8.5 Medications Medications Current Medications Atorvastatin Calcium (Lipitor) 40 mg HS PO Last administered on 08/20/16 20:47 ; Admin Dose 40 MG; Start 08/01/16 at 21:00 Calcitriol (Rocaltrol) 0.25 mcg DAILY PO Last administered on 08/20/16 08:40; Admin Dose 0.25 MCG; Start 08/01/16 at 09:00 Calcium/Vitamin D (Oyster Shell/ Vit-D (500/200)) 1 tab BID PO Last administered on 08/20/16 20:47; Admin Dose 1 TAB; Start 08/01/16 at 09:00 Hydralazine HCl (Apresoline) 50 mg Q8 PO Last administered on 08/20/16 06:01; Admin Dose 50 MG; Start 08/01/16 at 06:00 Paroxetine HCl (Paxil) 10 mg DAILY PO Last administered on 08/20/16 08:42; Admin Dose 10 MG; Start 08/01/16 at 09:00 Acetaminophen (Tylenol Tab) 650 mg Q4H PRN PO PAIN AND OR ELEVATED TEMP Last administered on 08/19/16 08:55; Admin Dose 650 MG; Start 08/01/16 at 00:30 Hydralazine HCl (Apresoline) 20 mg Q6H PRN IV ELEVATED BLOOD PRESSURE Last administered on 08/26/16 15:00; Admin Dose 20 MG; Start 08/01/16 at 00:30 Guaifenesin/ Dextromethorphan (Robitussin Dm Liquid Cup) 10 ml Q4H PRN PO COUGH Last administered on 08/20/16 21:07; Admin Dose 10 ML; Start 08/01/16 at 00:30 Epoetin Braden (Epogen (Esrd)) 6,000 units MoWeFr@17 SC Last administered on 08/25 18:05; Admin Dose 6,000 UNITS; Start 08/02/16 at 17:00 Linagliptin (Tradjenta) 5 mg DAILY PO Last administered on 08/20/16 08:42; Admin Dose 5 MG; Start 08/04/16 at 20:00 Salmeterol Xinafoate/ Fluticasone (Advair 250/50 Diskus) 1 inh BID INH Last administered on 08/23/16 21:20; Admin Dose 1 INH; Start 08/08/16 at 11:00 Montelukast Sodium (Singulair) 10 mg HS PO Last administered on 08/20/16 20:47 ; Admin Dose 10 MG; Start 08/08/16 at 21:00 Tiotropium [place] (Spiriva) 1 inh DAILY INH Last administered on 08/22/16 09: 00; Admin Dose 1 INH; Start 08/08/16 at 11:00 Miscellaneous Information 1 ea NOTE XX ; Start 08/13/16 at 17:30 Glucose (Glutose) 15 gm Q15M PRN PO DECREASED GLUCOSE; Start 08/13/16 at 17:30 Glucose (Glutose) 22.5 gm Q15M PRN PO DECREASED GLUCOSE; Start 08/13/16 at 17:30 Dextrose (D50w Syringe) 25 ml Q15M PRN IV DECREASED GLUCOSE; Start 08/13/16 at 17:30 Dextrose (D50w Syringe) 50 ml Q15M PRN IV DECREASED GLUCOSE; Start 08/13/16 at 17:30 Glucagon (Glucagen) 1 mg Q15M PRN IM DECREASED GLUCOSE; Start 08/13/16 at 17:30 Glucose (Glutose) 15 gm Q15M PRN BUCCAL DECREASED GLUCOSE; Start 08/13/16 at 17: 30 Apixaban (Eliquis) 5 mg BID PO Last administered on 08/20/16 20:47; Admin Dose 5 MG; Start 08/17/16 at 21:00 Metoprolol Tartrate (Lopressor) 50 mg BID PO Last administered on 08/20/16 20: 49; Admin Dose 50 MG; Start 08/19/16 at 09:00 Phenol (Cepastat Lozenge) 1 lozenge Q1H PRN MT SORE THROAT Last administered on 08/19/16 18:56; Admin Dose 1 LOZENGE; Start 08/19/16 at 16:30 Diagnostic Test (Pha) (Accu-Chek) 1 ea 02 XX Last administered on 08/27/16 01: 36; Admin Dose 1 EA; Start 08/20/16 at 02:00 Nystatin 1 applic 1 applic BID TOP Last administered on 08/27/16 09:25; Admin Dose 1 APPLIC; Start 08/19/16 at 21:00 Dextrose/Sodium Chloride (D5-1/2ns) 1,000 ml @ 40 mls/hr Q24H IV Last administered on 08/26/16 06:41; Admin Dose 40 MLS/HR; Start 08/20/16 at 13:00 Diltiazem HCl 10 mg 10 mg Q4 PRN IV HR>120 Last administered on 08/24/16 20:59 ; Admin Dose 10 MG; Start 08/20/16 at 18:30 Fluconazole/ Sodium Chloride (Diflucan 100 Mg/ NS (Pmx)) 50 ml @ 50 mls/hr Q24H IVPB Last administered on 08/26/16 21:32; Admin Dose 50 MLS/HR; Start at 21:00 Nystatin (Nystatin Susp) 5 ml QID PO Last administered on 08/22/16 23:02; Admin Dose 5 ML; Start 08/21/16 at 21:00 Lorazepam (Ativan) 1 mg Q2 PRN IV ANXIETY Last administered on 08/25/16 22:59 ; Admin Dose 1 MG; Start 08/21/16 at 21:00 Digoxin (Digoxin) 125 mcg AM IV Last administered on 08/27/16 09:21; Admin Dose 125 MCG; Start 08/23/16 at 14:30 Insulin Aspart (Novolog Insulin Pen) NOVOLOG *MILD* ALGORI... Q4 SC Last administered on 08/26/16 17:48; Admin Dose 1 UNIT; Start 08/25/16 at 13:00 BRYANT PERALTA Aug 27, 2016 15:27
--- NOTE | 2016-08-27 16:07 | CONS ---
Date/Time of Note Date/Time of Note DATE: 08/27/16 TIME: 16:06 Assessment/Plan Assessment/Plan Chief Complaint/Hosp Course SUBJECTIVE: No events. Comfortable on BiPAP. No fevers. ANTIMICROBIALS: Fluconazole. INDWELLINGS: Right IJ PermCath. PHYSICAL EXAMINATION: GENERAL: Chronically ill-appearing, elderly woman who is awake, in no distress. HEENT: Head atraumatic, normocephalic. Sclerae anicteric. Buccal mucosa dry. NECK: Supple, trachea midline. CHEST: Rise symmetrical. Breath sounds with bilateral crackles. HEART: S1, S2. ABDOMEN: Soft, bowel sounds present. EXTREMITIES: With trace edema. ASSESSMENT: 1. Acute respiratory failure secondary to fluid overload. 2. Status post pneumonia, sepsis and bacteremia. 3. Ongoing pulmonary edema. 4. Oropharyngeal candidiasis, on Diflucan. 5. End-stage renal disease, hemodialysis dependent. 6. DNI PLAN: The patient remains unchanged. She completed treatment for pneumonia . We will keep her on Diflucan for candidiasis. DW staff Problems: Consultation Date/Type/Reason Admit Date/Time Jul 31, 2016 at 19:59 Initial Consult Date 08/06/16 Type of Consultation: id Referring Provider: LALA ORO Exam/Review of Systems Vital Signs Vitals Vital Signs Date Time Temp Pulse Resp B/P Pulse Ox O2 Delivery O2 Flow Rate FiO2 08/27/16 15:53 98.9 111 24 185/79 99 08/27/16 15:23 60 08/26/16 15:19 15.0 08/26/16 11:33 BIPAP Intake and Output 08/26/16 08/26/16 08/27/16 15:00 23:00 07:00 Intake Total 500 ml 50 ml 420 ml Output Total 3500 ml Balance -3000 ml 50 ml 420 ml Results Result Diagram: 08/26/16 1540 08/27/16 0620 Results 24 hrs Laboratory Tests Test 08/26/16 17:21 08/26/16 21:30 08/27/16 01:35 08/27/16 05:36 Bedside Glucose 152 124 128 134 Test 08/27/16 06:20 08/27/16 08:57 Sodium Level 138 Potassium Level 3.7 Chloride Level 100 Carbon Dioxide Level 25 Anion Gap 17 H Blood Urea Nitrogen 29 H Creatinine 3.26 H Glucose Level 150 Calcium Level 8.5 Bedside Glucose 152 Medications Medications Current Medications Atorvastatin Calcium (Lipitor) 40 mg HS PO Last administered on 08/20/16 20:47 ; Admin Dose 40 MG; Start 08/01/16 at 21:00 Calcitriol (Rocaltrol) 0.25 mcg DAILY PO Last administered on 08/20/16 08:40; Admin Dose 0.25 MCG; Start 08/01/16 at 09:00 Calcium/Vitamin D (Oyster Shell/ Vit-D (500/200)) 1 tab BID PO Last administered on 08/20/16 20:47; Admin Dose 1 TAB; Start 08/01/16 at 09:00 Hydralazine HCl (Apresoline) 50 mg Q8 PO Last administered on 08/20/16 06:01; Admin Dose 50 MG; Start 08/01/16 at 06:00 Paroxetine HCl (Paxil) 10 mg DAILY PO Last administered on 08/20/16 08:42; Admin Dose 10 MG; Start 08/01/16 at 09:00 Acetaminophen (Tylenol Tab) 650 mg Q4H PRN PO PAIN AND OR ELEVATED TEMP Last administered on 08/19/16 08:55; Admin Dose 650 MG; Start 08/01/16 at 00:30 Hydralazine HCl (Apresoline) 20 mg Q6H PRN IV ELEVATED BLOOD PRESSURE Last administered on 08/26/16 15:00; Admin Dose 20 MG; Start 08/01/16 at 00:30 Guaifenesin/ Dextromethorphan (Robitussin Dm Liquid Cup) 10 ml Q4H PRN PO COUGH Last administered on 08/20/16 21:07; Admin Dose 10 ML; Start 08/01/16 at 00:30 Epoetin Braden (Epogen (Esrd)) 6,000 units MoWeFr@17 SC Last administered on 08/25 18:05; Admin Dose 6,000 UNITS; Start 08/02/16 at 17:00 Linagliptin (Tradjenta) 5 mg DAILY PO Last administered on 08/20/16 08:42; Admin Dose 5 MG; Start 08/04/16 at 20:00 Salmeterol Xinafoate/ Fluticasone (Advair 250/50 Diskus) 1 inh BID INH Last administered on 08/23/16 21:20; Admin Dose 1 INH; Start 08/08/16 at 11:00 Montelukast Sodium (Singulair) 10 mg HS PO Last administered on 08/20/16 20:47 ; Admin Dose 10 MG; Start 08/08/16 at 21:00 Tiotropium [place] (Spiriva) 1 inh DAILY INH Last administered on 08/22/16 09: 00; Admin Dose 1 INH; Start 08/08/16 at 11:00 Miscellaneous Information 1 ea NOTE XX ; Start 08/13/16 at 17:30 Glucose (Glutose) 15 gm Q15M PRN PO DECREASED GLUCOSE; Start 08/13/16 at 17:30 Glucose (Glutose) 22.5 gm Q15M PRN PO DECREASED GLUCOSE; Start 08/13/16 at 17:30 Dextrose (D50w Syringe) 25 ml Q15M PRN IV DECREASED GLUCOSE; Start 08/13/16 at 17:30 Dextrose (D50w Syringe) 50 ml Q15M PRN IV DECREASED GLUCOSE; Start 08/13/16 at 17:30 Glucagon (Glucagen) 1 mg Q15M PRN IM DECREASED GLUCOSE; Start 08/13/16 at 17:30 Glucose (Glutose) 15 gm Q15M PRN BUCCAL DECREASED GLUCOSE; Start 08/13/16 at 17: 30 Apixaban (Eliquis) 5 mg BID PO Last administered on 08/20/16 20:47; Admin Dose 5 MG; Start 08/17/16 at 21:00 Metoprolol Tartrate (Lopressor) 50 mg BID PO Last administered on 08/20/16 20: 49; Admin Dose 50 MG; Start 08/19/16 at 09:00 Phenol (Cepastat Lozenge) 1 lozenge Q1H PRN MT SORE THROAT Last administered on 08/19/16 18:56; Admin Dose 1 LOZENGE; Start 08/19/16 at 16:30 Diagnostic Test (Pha) (Accu-Chek) 1 ea 02 XX Last administered on 08/27/16 01: 36; Admin Dose 1 EA; Start 08/20/16 at 02:00 Nystatin 1 applic 1 applic BID TOP Last administered on 08/27/16 09:25; Admin Dose 1 APPLIC; Start 08/19/16 at 21:00 Dextrose/Sodium Chloride (D5-1/2ns) 1,000 ml @ 40 mls/hr Q24H IV Last administered on 08/26/16 06:41; Admin Dose 40 MLS/HR; Start 08/20/16 at 13:00 Diltiazem HCl 10 mg 10 mg Q4 PRN IV HR>120 Last administered on 08/24/16 20:59 ; Admin Dose 10 MG; Start 08/20/16 at 18:30 Fluconazole/ Sodium Chloride (Diflucan 100 Mg/ NS (Pmx)) 50 ml @ 50 mls/hr Q24H IVPB Last administered on 08/26/16 21:32; Admin Dose 50 MLS/HR; Start at 21:00 Nystatin (Nystatin Susp) 5 ml QID PO Last administered on 08/22/16 23:02; Admin Dose 5 ML; Start 08/21/16 at 21:00 Lorazepam (Ativan) 1 mg Q2 PRN IV ANXIETY Last administered on 08/25/16 22:59 ; Admin Dose 1 MG; Start 08/21/16 at 21:00 Digoxin (Digoxin) 125 mcg AM IV Last administered on 08/27/16 09:21; Admin Dose 125 MCG; Start 08/23/16 at 14:30 Insulin Aspart (Novolog Insulin Pen) NOVOLOG *MILD* ALGORI... Q4 SC Last administered on 08/26/16 17:48; Admin Dose 1 UNIT; Start 08/25/16 at 13:00 NAHUN DOWNEY NP Aug 27, 2016 16:07
--- NOTE | 2016-08-27 16:21 | CONS ---
Date/Time of Note Date/Time of Note DATE: 08/27/16 TIME: 16:19 Consult Date/Type/Reason Admit Date/Time Jul 31, 2016 at 19:59 Initial Consult Date 08/06/16 Type of Consultation: pulmonary Ordering Provider: LALA ORO Subjective Continues BiPAP remains minimally responsive Objective Vital Signs Date Time Temp Pulse Resp B/P Pulse Ox O2 Delivery O2 Flow Rate FiO2 08/27/16 16:14 111 08/27/16 15:53 98.9 24 185/79 99 08/27/16 15:23 60 08/26/16 15:19 15.0 08/26/16 11:33 BIPAP Intake and Output 08/26/16 08/26/16 08/27/16 15:00 23:00 07:00 Intake Total 500 ml 50 ml 420 ml Output Total 3500 ml Balance -3000 ml 50 ml 420 ml Exam GENERAL: Elderly lady on BiPAP no acute distress VITAL SIGNS: per chart NECK: Supple. No JVD or lymphadenopathy. CARDIAC EXAM: S1, S2. No added sounds or murmurs. CHEST: Diminished air entry bilaterally ABDOMEN: Soft, nontender. No guarding or rebound. EXTREMITIES: No cyanosis, clubbing edema +1 NEUROLOGIC: Generalized weakness. No focal deficits. Results/Medications Result Diagram: 08/26/16 1540 08/27/16 0620 Results 24 hrs Laboratory Tests Test 08/26/16 17:21 08/26/16 21:30 08/27/16 01:35 08/27/16 05:36 Bedside Glucose 152 124 128 134 Test 08/27/16 06:20 08/27/16 08:57 Sodium Level 138 Potassium Level 3.7 Chloride Level 100 Carbon Dioxide Level 25 Anion Gap 17 H Blood Urea Nitrogen 29 H Creatinine 3.26 H Glucose Level 150 Calcium Level 8.5 Bedside Glucose 152 Medications Current Medications Atorvastatin Calcium (Lipitor) 40 mg HS PO Last administered on 08/20/16 20:47 ; Admin Dose 40 MG; Start 08/01/16 at 21:00 Calcitriol (Rocaltrol) 0.25 mcg DAILY PO Last administered on 08/20/16 08:40; Admin Dose 0.25 MCG; Start 08/01/16 at 09:00 Calcium/Vitamin D (Oyster Shell/ Vit-D (500/200)) 1 tab BID PO Last administered on 08/20/16 20:47; Admin Dose 1 TAB; Start 08/01/16 at 09:00 Hydralazine HCl (Apresoline) 50 mg Q8 PO Last administered on 08/20/16 06:01; Admin Dose 50 MG; Start 08/01/16 at 06:00 Paroxetine HCl (Paxil) 10 mg DAILY PO Last administered on 08/20/16 08:42; Admin Dose 10 MG; Start 08/01/16 at 09:00 Acetaminophen (Tylenol Tab) 650 mg Q4H PRN PO PAIN AND OR ELEVATED TEMP Last administered on 08/19/16 08:55; Admin Dose 650 MG; Start 08/01/16 at 00:30 Hydralazine HCl (Apresoline) 20 mg Q6H PRN IV ELEVATED BLOOD PRESSURE Last administered on 08/26/16 15:00; Admin Dose 20 MG; Start 08/01/16 at 00:30 Guaifenesin/ Dextromethorphan (Robitussin Dm Liquid Cup) 10 ml Q4H PRN PO COUGH Last administered on 08/20/16 21:07; Admin Dose 10 ML; Start 08/01/16 at 00:30 Epoetin Braden (Epogen (Esrd)) 6,000 units MoWeFr@17 SC Last administered on 08/25 18:05; Admin Dose 6,000 UNITS; Start 08/02/16 at 17:00 Linagliptin (Tradjenta) 5 mg DAILY PO Last administered on 08/20/16 08:42; Admin Dose 5 MG; Start 08/04/16 at 20:00 Salmeterol Xinafoate/ Fluticasone (Advair 250/50 Diskus) 1 inh BID INH Last administered on 08/23/16 21:20; Admin Dose 1 INH; Start 08/08/16 at 11:00 Montelukast Sodium (Singulair) 10 mg HS PO Last administered on 08/20/16 20:47 ; Admin Dose 10 MG; Start 08/08/16 at 21:00 Tiotropium [place] (Spiriva) 1 inh DAILY INH Last administered on 08/22/16 09: 00; Admin Dose 1 INH; Start 08/08/16 at 11:00 Miscellaneous Information 1 ea NOTE XX ; Start 08/13/16 at 17:30 Glucose (Glutose) 15 gm Q15M PRN PO DECREASED GLUCOSE; Start 08/13/16 at 17:30 Glucose (Glutose) 22.5 gm Q15M PRN PO DECREASED GLUCOSE; Start 08/13/16 at 17:30 Dextrose (D50w Syringe) 25 ml Q15M PRN IV DECREASED GLUCOSE; Start 08/13/16 at 17:30 Dextrose (D50w Syringe) 50 ml Q15M PRN IV DECREASED GLUCOSE; Start 08/13/16 at 17:30 Glucagon (Glucagen) 1 mg Q15M PRN IM DECREASED GLUCOSE; Start 08/13/16 at 17:30 Glucose (Glutose) 15 gm Q15M PRN BUCCAL DECREASED GLUCOSE; Start 08/13/16 at 17: 30 Apixaban (Eliquis) 5 mg BID PO Last administered on 08/20/16 20:47; Admin Dose 5 MG; Start 08/17/16 at 21:00 Metoprolol Tartrate (Lopressor) 50 mg BID PO Last administered on 08/20/16 20: 49; Admin Dose 50 MG; Start 08/19/16 at 09:00 Phenol (Cepastat Lozenge) 1 lozenge Q1H PRN MT SORE THROAT Last administered on 08/19/16 18:56; Admin Dose 1 LOZENGE; Start 08/19/16 at 16:30 Diagnostic Test (Pha) (Accu-Chek) 1 ea 02 XX Last administered on 08/27/16 01: 36; Admin Dose 1 EA; Start 08/20/16 at 02:00 Nystatin 1 applic 1 applic BID TOP Last administered on 08/27/16 09:25; Admin Dose 1 APPLIC; Start 08/19/16 at 21:00 Dextrose/Sodium Chloride (D5-1/2ns) 1,000 ml @ 40 mls/hr Q24H IV Last administered on 08/26/16 06:41; Admin Dose 40 MLS/HR; Start 08/20/16 at 13:00 Diltiazem HCl 10 mg 10 mg Q4 PRN IV HR>120 Last administered on 08/24/16 20:59 ; Admin Dose 10 MG; Start 08/20/16 at 18:30 Fluconazole/ Sodium Chloride (Diflucan 100 Mg/ NS (Pmx)) 50 ml @ 50 mls/hr Q24H IVPB Last administered on 08/26/16 21:32; Admin Dose 50 MLS/HR; Start at 21:00 Nystatin (Nystatin Susp) 5 ml QID PO Last administered on 08/22/16 23:02; Admin Dose 5 ML; Start 08/21/16 at 21:00 Lorazepam (Ativan) 1 mg Q2 PRN IV ANXIETY Last administered on 08/25/16 22:59 ; Admin Dose 1 MG; Start 08/21/16 at 21:00 Digoxin (Digoxin) 125 mcg AM IV Last administered on 08/27/16 09:21; Admin Dose 125 MCG; Start 08/23/16 at 14:30 Insulin Aspart (Novolog Insulin Pen) NOVOLOG *MILD* ALGORI... Q4 SC Last administered on 08/26/16 17:48; Admin Dose 1 UNIT; Start 08/25/16 at 13:00 Assessment/Plan Chief Complaint/Hosp Course Assessment 1. Hypoxemic respiratory failure possibly secondary to aspiration pneumonia versus healthcare associated pneumonia. Ongoing pulmonary edema. Pleural effusion status post thoracentesis 2 2. Status post septic shock 3. Resolving encephalopathy 4. End-stage renal failure on hemodialysis 5. Dysphagia Plan 1. Aspiration precautions 2. Continue BiPAP 3. Continue hemodialysis as tolerated with volume removal Consider hospice overall prognosis very poor Problems: PATRIC HORVATH MD, [facility] Aug 27, 2016 16:21
[2016-08-27] MEDS: DEXTROSE 5%-0.45% NACL 1,000 ML IV SCH (16:27)
[2016-08-27] MEDS: EPOETIN 3000 UNITS/1 ML INJ (ESRD) SC SCH (17:00)
[2016-08-27] MEDS: MONTELUKAST 10 MG TAB PO SCH (21:00)
[2016-08-27] MEDS: ATORVASTATIN 40 MG TAB PO SCH (21:00)
[2016-08-27] MEDS: FLUCONAZOLE 100 MG/NS (PMX) 50 ML IVPB SCH (21:29)
[2016-08-27] MEDS: LORAZEPAM 2 MG INJ IV PRN (22:47)
[2016-08-27 22:55] LABS: AADO2 Arterial 626.2 mmHg (7.0-24.0); Allen Test ACCEPTAB; Arterial Base Excess -0.6 mmol/L (-3.0-3); Arterial COHb 0.3 % (0.0-3.0); Arterial HCO3 23.2 mmol/L (22.0-26.0); Arterial MetHb 0.4 % (0.0-1.5); Arterial Total Hemglobin 11.9 g/dl (12.0-18.0); Blood Gas IEPAP 18/8; MODE MASK - BIPAP
[2016-08-27] MEDS ORDERED: morphine 2 MG INJ ONE (23:06)
--- NOTE | 2016-08-27 23:22 | EN ---
Date/Time of Note Date/Time of Note DATE: 08/27/16 TIME: 23:21 Event Note Medicine Medicine Event Note RAPID RESPONSE TEAM The rapid response team was called to room 523 at 2255. Initially we were told that the DIMPLING MACHINE OPERATOR was called because the family wanted the patient transferred to intensive care. It was mentioned that the pressure machine at the side of the bed was not working properly. I asked if there was a new machine to use. The RN points out to me that patient's circulation is poor and it is not reading accurately, but they are monitoring him and call out to the telemetry station and are able to get his actual oxygen saturation and pulse there. Patient is scheduled for palliative care conference with Dr. Harkins tomorrow. This patient was admitted on July 31 in pulmonary edema. In addition she has end-stage renal disease on hemodialysis, diabetes mellitus, hypertension, see history of CVA, stent placement. She is currently on BiPAP and appears to be in respiratory distress. I am told that she cannot tolerate being off of the BiPAP. She had previously been in the intensive care unit. She has a sore throat, probably thrush, and she does not want her NG tube put back in. She has not been on any kind of nutrition other than D5 half-normal saline for the past week. Per respiratory therapy, she cannot tolerate being off of the CPAP machine. It is difficult to hear her heart well anteriorly but on the lateral side it is regular no specific murmur appreciated there. She is breathing at a respiratory rate of about 60 minutes. I ordered an ABG. I reviewed her old records and found that she did have a recent echocardiogram showed an ejection fraction of 65% but significant diastolic dysfunction. Her ABG results: 7. 43/ 35/51/20 3/-0.6 Meanwhile, I have ordered 1 mg of IV Ativan to be given in 0.5 mg doses. The first dose is given and patient's respiratory rate, after 60-90 seconds was at 44. She was given the second 0.5 mg dose. She seemed a little more calm after this dose but her respiratory rate was still 40 and by 2305, she had paradoxical respiratory motions. At 2310 her family was now thinking about intubating her. I spoke with the patient's family, currently several members at the bedside, and the sales representative business courses to make the decisions was her son Connor. I spoke with Connor regarding his mother's condition and respiratory status. I explained that if she was not intubated, she is at very high risk for an event. He definitely agreed on medications, so I gave patient 2 mg of morphine IV. I gave 2 mg of morphine IV. Her respiratory rate came down to 36 though still paradoxical at 2300 patient's son Connor agreed to comfort care only. No intubation no CPR. I completed those orders at 2335, and I was done speaking with the family at 2239. Her heart rate was still at 36. At this point, I excused myself to write the orders for comfort care, including an appropriate drip which the family does agree to. The orders are complete. Patient may stay on the [facility] floor. I let the family know that it would be unlikely that she would make it through the night. Critical CARE time: 70 minutes was spent evaluating, treating, reviewing records , reassessing and charting. . MALACHI TERAN DO Aug 27, 2016 23:22
[2016-08-27] MEDS ORDERED: morphine 2 MG INJ IV PRN (23:30)
[2016-08-27] MEDS ORDERED: morphine 4 MG/ML VIAL IV ONE (23:30)
[2016-08-27] MEDS ORDERED: ARTIFICIAL TEARS 15 ML OPH BOTH EYES PRN (23:30)
[2016-08-27] MEDS ORDERED: DIPHENHYDRAMINE 50 MG INJ IV PRN (23:30)
[2016-08-27] MEDS ORDERED: DIMETHICONE STICK TOP PRN (23:30)
[2016-08-27] MEDS ORDERED: LORAZEPAM 2 MG INJ IV PRN (23:30)
[2016-08-27] MEDS ORDERED: ONDANSETRON 4 MG INJ IV PRN (23:30)
[2016-08-27] MEDS ORDERED: SCOPOLAMINE 1.5 MG PATCH TRANSDERM SCH (23:30)
[2016-08-27] MEDS ORDERED: KETOROLAC 15 MG INJ IV PRN (23:30)
[2016-08-28] VITALS (26 sets, daily range): BP systolic 78–141; BP diastolic 34–68; PULSE 59–125; RESP 18–20
[2016-08-28] MEDS ORDERED: morphine (DRIP) 100 MG/100 ML 100 ML IV SCH
[2016-08-28] MEDS: INSULIN ASPART [NOVOLOG] 3 ML PEN SC SCH ×3 (01:00→08:51)
[2016-08-28] MEDS: ALBUTEROL/IPRATROPIUM (NEB) 3 ML AMP HHN SCH ×2 (01:51→08:37)
[2016-08-28] MEDS: ACCUCHECK AT 2AM (Patients on SS coverage) XX SCH (02:00)
[2016-08-28] MEDS: FUROSEMIDE 40 MG INJ IV SCH (06:00)
[2016-08-28] MEDS: CALCIUM ACETATE 667 MG CAP PO SCH ×2 (07:26→10:48)
[2016-08-28] MEDS: TIOTROPIUM 18 MCG CAPSULE INHA DEV INH SCH (08:31)
[2016-08-28] MEDS: SALMETEROL/FLUTICASONE 250/50 INHA INH SCH (08:31)
[2016-08-28] MEDS: APIXABAN 5 MG TABLET PO SCH (08:32)
[2016-08-28] MEDS: METOPROLOL 25 MG TAB PO SCH (08:32)
[2016-08-28] MEDS: CALCIUM/VITAMIN D (500/200) TAB PO SCH (08:32)
[2016-08-28] MEDS: LINAGLIPTIN 5 MG TABLET PO SCH (08:32)
[2016-08-28] MEDS: CALCITRIOL 0.25 MCG CAP PO SCH (08:32)
[2016-08-28] MEDS: PAROXETINE 10 MG TAB PO SCH (08:32)
[2016-08-28] MEDS: CLOTRIMAZOLE 10 MG TROCHE MT SCH ×2 (08:32→10:48)
[2016-08-28] MEDS: NYSTATIN 30 GM POWDER BTL TOP SCH (08:40)
[2016-08-28] MEDS: NYSTATIN SUSP 5 ML CUP PO SCH (09:05)
[2016-08-28] MEDS: DIGOXIN 500 MCG INJ IV SCH (09:05)
--- NOTE | 2016-08-28 12:25 | CONS ---
Date/Time of Note Date/Time of Note DATE: 08/28/16 TIME: 12:18 Assessment/Plan Assessment/Plan Problems: (1) Diabetes mellitus, type 2 Status: Chronic Comment: Patient made comfort care only. Additional Assessment/Plan Insulin and accu checks discontinued. Consultation Date/Type/Reason Admit Date/Time Jul 31, 2016 at 19:59 Initial Consult Date 08/13/16 Type of Consultation: endocrine Reason for Consultation glycemic management Referring Provider: LALA ORO 24 HR Interval Summary Free Text/Dictation Rapid response team called last evening. Subjective hx not possible: pt critical status Constitutional: requiring O2 Exam/Review of Systems Vital Signs Vitals Vital Signs Date Time Temp Pulse Resp B/P Pulse Ox O2 Delivery O2 Flow Rate FiO2 08/28/16 12:15 98.6 100 20 118/55 92 08/28/16 05:38 100 08/26/16 15:19 15.0 08/26/16 11:33 BIPAP Intake and Output 08/27/16 08/27/16 08/28/16 15:00 23:00 07:00 Intake Total 470 ml 493 ml Balance 470 ml 493 ml Exam Family at bedside. Constitutional: non-verbal Respiratory: labored breathing, other (on CPAP) Results POC glucose reviewed Result Diagram: 08/26/16 1540 08/27/16 0620 Results 24 hrs Laboratory Tests Test 08/27/16 17:56 08/27/16 21:27 08/27/16 22:45 08/28/16 02:08 Bedside Glucose 143 197 133 Blood Gas Specimen Source Blood arterial Arterial Blood Date Drawn 08/27/2016 10:45:30 PM Arterial Blood pH (Temp corrected) 7.436 Arterial Blood pCO2 (Temp correct) 35.3 Arterial Blood pO2 (Temp corrected) 51.5 *L Arterial Blood HCO3 23.2 Arterial Blood Base Excess -0.6 Arterial Blood Oxygen Saturation 87.6 L Chris Test ACCEPTAB Arterial Blood Gas Puncture Site Right Radial Arterial Blood Carboxyhemoglobin 0.3 Arterial Blood Methemoglobin 0.4 Blood Gas A-a O2 Differential 626.2 H Oxyhemoglobin Percent 87.0 L Total Hemoglobin 11.9 L Blood Gas Temperature 37.0 Blood Gas Respiration Rate 18.0 Blood Gas Modality MASK - BIPAP FiO2 100.0 Blood Gas IPAP/EPAP Ratio 18/8 Blood Gas Critical Value Read Back GALINA AYERS Blood Gas Notified Whom [place] Blood Gas Notified Time 08/27/2016 10:53:01 PM Test 08/28/16 06:17 08/28/16 08:39 Bedside Glucose 139 172 Medications Medications Current Medications Acetaminophen (Tylenol Tab) 650 mg Q4H PRN PO PAIN AND OR ELEVATED TEMP Last administered on 08/19/16 08:55; Admin Dose 650 MG; Start 08/01/16 at 00:30 Morphine Sulfate (morphine) 2 mg Q1H PRN IV PAIN Last administered on 23:15; Admin Dose 2 MG; Start 08/27/16 at 23:30 Lorazepam (Ativan) 1 mg Q2H PRN IV ANXIETY/SEIZURES; Start 08/27/16 at 23:30 Scopolamine (Transderm-Scop) 1 patch Q72H TRANSDERM Last administered on 00:11; Admin Dose 1 PATCH; Start 08/27/16 at 23:30 YAMILETH COLLINS MD Aug 28, 2016 12:25
--- NOTE | 2016-08-28 12:34 | CONS ---
Date/Time of Note Date/Time of Note DATE: 08/28/16 TIME: 12:32 Assessment/Plan Assessment/Plan Chief Complaint/Hosp Course 1. End-stage renal disease stage V. 2. Fluid overload.better on hd 3. Pulmonary edema./pleural effusion/lung infilterate s/p thoracenresis 4. Anemia of chronic kidney disease. 5. History of diabetes mellitus. 6. 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 7. AV fistula on the left upper extremity. 8 pneumonia/bronchites 9 thoracentesis s/p 10 s/p arrthymia 11 vdrf 12 hypokalemia plan continue hd Problems: Additional Assessment/Plan 1. Pt is end of life. Hospice is pending Consultation Date/Type/Reason Admit Date/Time Jul 31, 2016 at 19:59 Initial Consult Date 08/01/16 Type of Consultation: nephrology Reason for Consultation Dr Leon Referring Provider: JEROD ARNOLD MD 24 HR Interval Summary Subjective hx not possible: pt non-verbal Constitutional: requiring O2 Exam/Review of Systems Vital Signs Vitals Vital Signs Date Time Temp Pulse Resp B/P Pulse Ox O2 Delivery O2 Flow Rate FiO2 08/28/16 12:19 97 08/28/16 12:15 98.6 20 118/55 92 08/28/16 05:38 100 08/26/16 15:19 15.0 08/26/16 11:33 BIPAP Intake and Output 08/27/16 08/27/16 08/28/16 14:59 22:59 06:59 Intake Total 470 ml 491 ml Balance 470 ml 491 ml Exam nonverbal Eyes: nl conjunctiva Neck: supple Cardiovascular: regular rate and rhythm Gastrointestinal: soft Results Result Diagram: 08/26/16 1540 08/27/16 0620 Results 24 hrs Laboratory Tests Test 08/27/16 17:56 08/27/16 21:27 08/27/16 22:45 08/28/16 02:08 Bedside Glucose 143 197 133 Blood Gas Specimen Source Blood arterial Arterial Blood Date Drawn 08/27/2016 10:45:30 PM Arterial Blood pH (Temp corrected) 7.436 Arterial Blood pCO2 (Temp correct) 35.3 Arterial Blood pO2 (Temp corrected) 51.5 *L Arterial Blood HCO3 23.2 Arterial Blood Base Excess -0.6 Arterial Blood Oxygen Saturation 87.6 L Chris Test ACCEPTAB Arterial Blood Gas Puncture Site Right Radial Arterial Blood Carboxyhemoglobin 0.3 Arterial Blood Methemoglobin 0.4 Blood Gas A-a O2 Differential 626.2 H Oxyhemoglobin Percent 87.0 L Total Hemoglobin 11.9 L Blood Gas Temperature 37.0 Blood Gas Respiration Rate 18.0 Blood Gas Modality MASK - BIPAP FiO2 100.0 Blood Gas IPAP/EPAP Ratio 18/8 Blood Gas Critical Value Read Back GALINA AYERS Blood Gas Notified Whom LORI Blood Gas Notified Time 08/27/2016 10:53:01 PM Test 08/28/16 06:17 08/28/16 08:39 Bedside Glucose 139 172 Medications Medications Current Medications Acetaminophen (Tylenol Tab) 650 mg Q4H PRN PO PAIN AND OR ELEVATED TEMP Last administered on 08/19/16 08:55; Admin Dose 650 MG; Start 08/01/16 at 00:30 Morphine Sulfate (morphine) 2 mg Q1H PRN IV PAIN Last administered on 23:15; Admin Dose 2 MG; Start 08/27/16 at 23:30 Lorazepam (Ativan) 1 mg Q2H PRN IV ANXIETY/SEIZURES; Start 08/27/16 at 23:30 Scopolamine (Transderm-Scop) 1 patch Q72H TRANSDERM Last administered on 00:11; Admin Dose 1 PATCH; Start 08/27/16 at 23:30 LOUISE LAWRENCE Aug 28, 2016 12:34
[2016-08-28] MEDS ORDERED: VANCOMYCIN 750 MG in SOD CHLORIDE 0.9% 150 ML IVPB SCH (14:00)
--- NOTE | 2016-08-28 16:07 | CONS ---
Date/Time of Note Date/Time of Note DATE: 08/28/16 TIME: 16:05 Consult Date/Type/Reason Admit Date/Time Jul 31, 2016 at 19:59 Initial Consult Date 08/13/16 Type of Consultation: Pulm Ordering Provider: JEROD ARNOLD MD Subjective Agonal. Unresponsive Objective Vital Signs Date Time Temp Pulse Resp B/P Pulse Ox O2 Delivery O2 Flow Rate FiO2 08/28/16 12:19 97 08/28/16 12:15 98.6 20 118/55 92 08/28/16 05:38 100 08/26/16 15:19 15.0 08/26/16 11:33 BIPAP Intake and Output 08/27/16 08/27/16 08/28/16 15:00 23:00 07:00 Intake Total 470 ml 493 ml Balance 470 ml 493 ml Exam HEENT: Neck supple; no JVD; no LAD CVS: rupert CHEST: minimal effort; agonal ABD: Soft, NT, + BS EXT: No c/c/e Results/Medications Result Diagram: 08/26/16 1540 08/27/16 0620 Results 24 hrs Laboratory Tests Test 08/27/16 17:56 08/27/16 21:27 08/27/16 22:45 08/28/16 02:08 Bedside Glucose 143 197 133 Blood Gas Specimen Source Blood arterial Arterial Blood Date Drawn 08/27/2016 10:45:30 PM Arterial Blood pH (Temp corrected) 7.436 Arterial Blood pCO2 (Temp correct) 35.3 Arterial Blood pO2 (Temp corrected) 51.5 *L Arterial Blood HCO3 23.2 Arterial Blood Base Excess -0.6 Arterial Blood Oxygen Saturation 87.6 L Chris Test ACCEPTAB Arterial Blood Gas Puncture Site Right Radial Arterial Blood Carboxyhemoglobin 0.3 Arterial Blood Methemoglobin 0.4 Blood Gas A-a O2 Differential 626.2 H Oxyhemoglobin Percent 87.0 L Total Hemoglobin 11.9 L Blood Gas Temperature 37.0 Blood Gas Respiration Rate 18.0 Blood Gas Modality MASK - BIPAP FiO2 100.0 Blood Gas IPAP/EPAP Ratio 18/8 Blood Gas Critical Value Read Back GALINA AYERS Blood Gas Notified Whom [place] Blood Gas Notified Time 08/27/2016 10:53:01 PM Test 08/28/16 06:17 08/28/16 08:39 Bedside Glucose 139 172 Medications Current Medications Acetaminophen (Tylenol Tab) 650 mg Q4H PRN PO PAIN AND OR ELEVATED TEMP Last administered on 08/19/16 08:55; Admin Dose 650 MG; Start 08/01/16 at 00:30 Morphine Sulfate (morphine) 2 mg Q1H PRN IV PAIN Last administered on 23:15; Admin Dose 2 MG; Start 08/27/16 at 23:30 Lorazepam (Ativan) 1 mg Q2H PRN IV ANXIETY/SEIZURES; Start 08/27/16 at 23:30 Scopolamine (Transderm-Scop) 1 patch Q72H TRANSDERM Last administered on 00:11; Admin Dose 1 PATCH; Start 08/27/16 at 23:30 Assessment/Plan Additional Assessment/Plan Hospice care Comfort measures ROMANA RUBIO MD Aug 28, 2016 16:07
--- NOTE | 2016-08-28 16:38 | DES ---
Date/Time of Note Date/Time of Note DATE: 08/28/16 TIME: 16:33 Discharge/ Summary Admission/Discharge Info Admit Date/Time Jul 31, 2016 at 19:59 Discharge Date/Time Final Diagnosis Chronic Kidney Disease stage 5 Hypertension Preliminary Cause of Acute Respiratory Failure due to CHF sec to Atherosclerotic Heart Disease Hx of Present Illness Date of - 08/28/2016 Time of - 1519 Patient remained on comfort measures. FAmily refused Hospice and wanted patient to be off from BIPAP. pATIENT PEACEFULLY. Chief Complaint sob x 1 week, speaking 1/2 sentences HPI This 85-year-old female presents to the emergency room for evaluation of shortness of breath for 1 week. According to family members this patient is scheduled to start dialysis within 1 or 2 weeks and was complaining of shortness of breath today. This patient was brought to the emergency room for further evaluation. The patient's shortness of breath is worse when laying flat. She denies any chest pain or palpitations associated with this. ROS All systems reviewed and are negative except as per history of present illness. Medications Home Meds Reported Medications Calcitriol* (Rocaltrol*) 0.25 Mcg Capsule, 0.25 MCG PO THREE TIMES A WEEK, CAP 07/31/16 Ergocalciferol (Vitamin D2) (VITAMIN D2) 50,000 Unit Capsule, [address] UNIT PO EVERY 7 DAYS, CAP 07/31/16 Furosemide* (Furosemide*) 40 Mg Tablet, 40 MG PO DAILY, TAB 07/31/16 Amlodipine Besylate* (Norvasc*) 5 Mg Tablet, 5 MG PO DAILY, TAB 07/31/16 Metoprolol Tartrate* (Lopressor*) 25 Mg Tab, 25 MG PO BID, TAB 08/31/14 Hydralazine Hcl* (Hydralazine Hcl*) 50 Mg Tablet, 50 MG PO Q8, TAB 06/23/14 Sitagliptin* (Januvia*) 25 Mg Tablet, 25 MG PO DAILY, TAB 06/23/14 Paroxetine Hcl* (Paroxetine*) 10 Mg Tablet, 10 MG PO DAILY, TAB 06/23/14 Calcium Carbonate/Vitamin D3* (Os-Abhijeet 500+D*) 1 Tab Tablet, 1 TAB PO BID, TAB 06/23/14 Atorvastatin* (Atorvastatin*) 40 Mg Tablet, 40 MG PO HS, TAB 12/22/13 Discontinued Reported Medications Benzonatate* (Benzonatate*) 200 Mg Capsule, 200 MG PO TID Y for COUGH, CAP 06/23/14 Discontinued Scripts Methocarbamol* (Robaxin*) 500 Mg Tab, 500 MG PO Q8, #14 TAB Prov:BUNNY EASON DO 09/20/15 Naproxen* (Naproxen*) 250 Mg Tablet, 250 MG PO BID Y for PAIN, #10 TAB Prov:BUNNY EASON DO 09/20/15 Hydrocodone Bit-Acetaminophen* (Stanton*) 5-325 Mg Tab, 1 TAB PO Q6 Y for PAIN, # 20 TAB Prov:BUNNY EASON DO 09/20/15 Ertapenem Sodium (Invanz) 1 G/Vial Vial.port, 1 G IV DAILY, #6 Prov:CARSON MADISON MD 09/06/14 Amlodipine Besylate* (Norvasc*) 10 Mg Tab, 10 MG PO DAILY, #30 BOTTLE Prov:CARSON MADISON MD 09/05/14 Oxybutynin Chloride* (Ditropan* XL) 5 Mg Tabsr, 5 MG PO DAILY, #30 TAB.SA Prov:CARSON MADISON MD 09/05/14 Allergies Allergies: Coded Allergies: No Known Allergies (Verified Allergy, Unknown, 07/31/16) Hospital Course Assessment 1. Hypoxemic respiratory failure possibly secondary to aspiration pneumonia versus healthcare associated pneumonia. Ongoing pulmonary edema. Pleural effusion status post thoracentesis 2 2. Status post septic shock 3. Resolving encephalopathy 4. End-stage renal failure on hemodialysis 5. Dysphagia Consider hospice overall prognosis very poor Pending Labs/Cultures Laboratory Tests Test 08/27/16 17:56 08/27/16 21:27 08/27/16 22:45 08/28/16 02:08 Bedside Glucose 143mg/dL (70-220) 197mg/dL (70-220) 133mg/dL (70-220) Blood Gas Specimen Source Blood arterial Arterial Blood Date Drawn 08/27/2016 10:45:30 PM Arterial Blood pH (Temp corrected) 7.436 (7.350-7.450) Arterial Blood pCO2 (Temp correct) 35.3mmhg (35-45) Arterial Blood pO2 (Temp corrected) 51.5mmHG (80-90.0) Arterial Blood HCO3 23.2mmol/L (22.0-26.0) Arterial Blood Base Excess -0.6mmol/L (-3.0-3) Arterial Blood Oxygen Saturation 87.6mmHG (95.0-100.0) Chris Test ACCEPTAB Arterial Blood Gas Puncture Site Right Radial Arterial Blood Carboxyhemoglobin 0.3% (0.0-3.0) Arterial Blood Methemoglobin 0.4% (0.0-1.5) Blood Gas A-a O2 Differential 626.2mmHg (7.0-24.0) Oxyhemoglobin Percent 87.0% (93.0-99.0) Total Hemoglobin 11.9g/dl (12.0-18.0) Blood Gas Temperature 37.0C Blood Gas Respiration Rate 18.0 Blood Gas Modality MASK - BIPAP FiO2 100.0% Blood Gas IPAP/EPAP Ratio 18/8 Blood Gas Critical Value Read Back GALINA AYERS Blood Gas Notified Whom [place] Blood Gas Notified Time 08/27/2016 10:53:01 PM Test 08/28/16 06:17 08/28/16 08:39 Bedside Glucose 139mg/dL (70-220) 172mg/dL (70-220) LALA ORO Aug 28, 2016 16:38
== END 2016-08-28 14:50 | disposition expired | DRG 291 ==
LOC: E/R 17:06 → TEL 19:59 → MS1 08-03 00:20 → TEL 08-06 18:16 → ICU 08-12 21:45 → TEL 08-16 00:03
PROVIDERS: ADMIT Internal Medicine; ATTEND Internal Medicine
PROC: 0CJS8ZZ Inspection of Larynx, Via Natural or Artificial Opening Endoscopic (ICD-10-PCS; 2016-07-31)
PROC: 5A1D60Z (ICD-10-PCS; 2016-08-01)
PROC: 30230N1 Transfusion of Nonautologous Red Blood Cells into Peripheral Vein, Open Approach (ICD-10-PCS; 2016-08-02)
PROC: 06HY33Z Insertion of Infusion Device into Lower Vein, Percutaneous Approach (ICD-10-PCS; principal; 2016-08-03 13:30)
PROC: 02H633Z Insertion of Infusion Device into Right Atrium, Percutaneous Approach (ICD-10-PCS; 2016-08-05)
PROC: 5A09357 Assistance with Respiratory Ventilation, Less than 24 Consecutive Hours, Continuous Positive Airway Pressure (ICD-10-PCS; 2016-08-12)
PROC: 0W993ZZ Drainage of Right Pleural Cavity, Percutaneous Approach (ICD-10-PCS; 2016-08-14)
PROC: 0W993ZZ Drainage of Right Pleural Cavity, Percutaneous Approach (ICD-10-PCS; 2016-08-20)
DX: I13.2 Hypertensive heart and chronic kidney disease with heart failure and with stage 5 chronic kidney disease, or end stage renal disease (principal); A41.59 Other Gram-negative sepsis; J96.01 Acute respiratory failure with hypoxia; R65.21 Severe sepsis with septic shock; J69.0 Pneumonitis due to inhalation of food and vomit; G93.40 Encephalopathy, unspecified; N17.9 Acute kidney failure, unspecified; B37.89 Other sites of candidiasis; I50.33 Acute on chronic diastolic (congestive) heart failure; N18.6 End stage renal disease; J44.0 Chronic obstructive pulmonary disease with (acute) lower respiratory infection; J44.1 Chronic obstructive pulmonary disease with (acute) exacerbation; B37.0 Candidal stomatitis; I69.954 Hemiplegia and hemiparesis following unspecified cerebrovascular disease affecting left non-dominant side; J20.9 Acute bronchitis, unspecified; R13.10 Dysphagia, unspecified; E78.5 Hyperlipidemia, unspecified; I25.10 Atherosclerotic heart disease of native coronary artery without angina pectoris; D63.1 Anemia in chronic kidney disease; E11.22 Type 2 diabetes mellitus with diabetic chronic kidney disease; M81.0 Age-related osteoporosis without current pathological fracture; I48.91 Unspecified atrial fibrillation; E11.65 Type 2 diabetes mellitus with hyperglycemia; E87.6 Hypokalemia; Z99.2 Dependence on renal dialysis; Z66 Do not resuscitate; Z79.4 Long term (current) use of insulin; Z51.5 Encounter for palliative care
CPT/HCPCS: 32555; 36415; 36430; 36558; 36600; 70551; 71010; 71020; 71250; 76942; 80048; 80053; 80061; 80202; 82550; 82553; 82803; 82945; 82962; 83036; 83615; 83735; 83880; 84100; 84157; 84484; 85025; 85610; 85651; 85730; 86704; 86709; 86803; 86850; 86900; 86901; 86920; 87040; 87070; 87081; 87102; 87116; 87340; 88104; 88305; 89050; 90935; 92526; 92610; 93005; 93306; 93931; 93976; 94640; 94660; 94664; 95819; 96374; 97162; 97164; 97530; J0278; J0282; J0360; J0690; J0692; J0886; J1450; J1644; J1815; J1940; J2060; J2150; J2250; J2270; J2543; J2920; J3010; J3370; J3480; J7040; J7042; J7050; J7060; P9016; P9047